=== PATIENT | male | born 1955 | race Caucasian/White ===

== ENCOUNTER → 2016-08-19 | Outpatient (REF) | payer MEDICARE, BC ==
[~2016-08-19] MED LIST: /ALEN70TA; ACET65TA OR; AKWA TEARS OS; ASPI81TA83 OR; ASPI81TA85 PO; CALC0.5C OR; CALC0.5C PO; CINA30TA PO; CORE25TA; CORE25TA OR; CORE25TA PO; COZA25TA8 OR; DAILYVITE; DULC5TAB PO; K PHOS PO; KPHOS50TA PO; MAGN400C2 PO; MAGN400T5 PO; MAGN500T2 OR; MAGN500T5 PO; METO10TA2; MYFO180T PO; MYFORTIC PO; NAPR250T; NORV5TAB OR; NORV5TAB PO; PERICOLACE; PRED20TAB PO; PRED50TA PO; PRED5TA PO; PRED5TAB OR; PREDOPD OS; PRIL20CA; PRIL20CA OR; PRIL20CA9 PO; PROG1CAP10 PO; PROG1CAP2 OR; PROL0.072 OS; REGL10TA6 PO; RENA800T; RENVELA; REST15CA; TYLE325T5 PO; TYLE500T78 PO; VICO5TAB; VIT D 2000 PO; VITA100037 PO; XANA0.25; [UNRECOGNIZED DRUG - OTHER]; [UNRECOGNIZED DRUG - OTHER]; [UNRECOGNIZED DRUG - OTHER] PO; cipro
== END ==
LOC: M LAB REF 15:52
PROVIDERS: ATTEND Internal Medicine Nephrology
DX: Z94.0 Kidney transplant status (principal)

== ENCOUNTER 2016-10-12 13:25 | Inpatient (IN) | payer MEDICARE, BC ==
[~2016-10-12] VITALS: Ht 200.7 cm; Wt 76.4 kg
[2016-10-12] MEDS: ASPIRIN 81 MG ENTERIC TAB PO SCH (09:00)
[~2016-10-12 13:25] MED LIST changes: -CALC0.5C PO; +CALC0.5C6 PO
[2016-10-12] MEDS ORDERED: NS 1,000 ML IV ONE ×2 (14:15→16:00)
[2016-10-12] MEDS ORDERED: ONDANSETRON 4MG/2ML VIAL (J2405) IV ONE (14:15)
[2016-10-12] MEDS ORDERED: ACETAMINOPHEN TAB 650MG DOSE (2X325MG) PO ONE (17:00)
[2016-10-12] MEDS ORDERED: ONDANSETRON 4MG/2ML VIAL (J2405) IV PRN (17:15)
[2016-10-12] MEDS ORDERED: ACETAMINOPHEN TAB 650MG DOSE (2X325MG) PO PRN (17:15)
[2016-10-12] MEDS ORDERED: GASTROGRAFIN SOLUTION 30ML (Q9963) As Ordered ONE (17:35)
[2016-10-12] MEDS ORDERED: GASTROGRAFIN SOLUTION 30ML (Q9963) PO ONE (17:45)
[2016-10-12] MEDS ORDERED: CALC1CAP31 PO (17:56)
[2016-10-12] MEDS ORDERED: GASTROGRAFIN SOLUTION 30ML PO ONE (18:15)
[2016-10-12] MEDS: NS 1,000 ML IV SCH (18:29)
--- NOTE | 2016-10-12 19:34 | HPEPDOC ---
General Date of Admission Oct 12, 2016 at 17:11 Primary Care Physician: Janice Giles MD Chief Complaint The patient is a 60-year-old male admitted with a reason for visit of Diarrhea. Source: Patient, Family History of Present Illness Mr. 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 He is accompanied in the room by his . They both provide the history. They're both excellent historians. He states that approximately 2 days ago he began feeling ill in the evening after eating dinner, he had one bout of diarrhea at that time, but no other symptoms. Yesterday he was not feeling himself, and he had decreased appetite and decreased oral intake, but no additional symptoms at that time. This morning at about 7 AM he began to have profuse watery diarrhea, and then he also had nausea and a few bouts of emesis. He called his primary care provider Dr. Giles who instructed him that he should present to the emergency department as he may become dehydrated quite quickly, especially in the setting of his transplanted kidney. Home Medications Scheduled (Myfortic) 180 Mg Tab 180 MG PO BID (Reported) Amlodipine Besylate (Norvasc) 5 Mg Tab 5 MG PO QHS (Reported) Aspirin (Aspir-81) 81 Mg Tab 81 MG PO DAILY (Reported) Calcitriol (Calcitriol) 0.25 Mcg Cap 0.5 MCG PO DAILY (Reported) Carvedilol (Coreg) 25 Mg Tab 25 MG PO BID (Reported) Cinacalcet Hydrochloride (Sensipar) 30 Mg Tab 30 MG PO 2XWK (Reported) FRIDAY & FRIDAY QHS Magnesium Oxide (Magnesium Oxide 400) 400 Mg Tab 800 MG PO BID (Reported) Omeprazole (Prilosec) 20 Mg Cap 20 MG PO DAILY (Reported) Potassium Phosphate Monobasic (K-Phos) 500 Mg Tab 500 MG PO BID (Reported) Prednisone (Prednisone) 5 Mg Tab 5 MG PO DAILY (Reported) Tacrolimus (Prograf) 0.5 Mg Cap 0.5 MG PO BID (Reported) Vitamin D (Vitamin D) 1,000 Unit Cap 1,000 UNIT PO DAILY (Reported) Scheduled PRN Acetaminophen (Tylenol Extra Strength) 500 Mg Tab 1,000 MG PO Q6H PRN PRN PAIN ( Reported) Metoclopramide HCl (Reglan) 10 Mg Tab 10 MG PO PRN PRN PRN NAUSEA (Reported) Allergies Coded Allergies: Hydrocodone (Verified Allergy, Unknown, 10/07/12) Morphine (Unverified Allergy, Unknown, VOMIT, 06/02/16) Vancomycin (Verified Allergy, Unknown, 10/07/12) Codeine (Verified Adverse Reaction, Mild, NAUSEA/VOMITING, 10/07/12) Meperidine (Verified Adverse Reaction, Mild, NAUSEA/VOMITING, 10/07/12) Oxycodone (Verified Adverse Reaction, Mild, NAUSEA/VOMITING, 10/07/12) Past Medical History Medical History End-stage renal disease due to congenital urinary tract abnormalities status post 2 prior kidney transplantations in the remote past Hypertension Anxiety GERD 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 Surgical History Renal transplant 2 Cholecystectomy Cataract surgery Left hip replacement Left shoulder replacement Right arm AV fistula creation for hemodialysis Surgical intervention of cyst on the liver Lungs surgery for drainage of hemothorax Family History He is adopted therefore he does not know his family history. He has 2 daughters who are healthy Social History * Smoker: non-smoker Alcohol: Denies Drugs: denies Recent Travel/Sick Contacts: Reports: Recent sick contacts (various members of his extended family have had GI issues over the past several weeks, he feels has been doing a good job of avoiding them when [place]), Denies: Recent travel He lives at home with his , they do not have any pets. 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 No asbestos exposure. No tuberculosis exposure. Review of Symptoms Constitutional: Reports: Chills, Fatigue, Fever, Malaise, Night Sweats, Weakness Skin: Denies: Breakdown, Lesions, Rash Pulmonary: Denies: Cough, Dyspnea Cardiovascular: Denies: Chest Pain, Lt Headedness, Orthopnea, Palpitations, Paroxysmal Noc. Dyspnea Gastrointestinal: Reports: Abdominal Pain, Constipation (normally he suffers from chronic constipation), Diarrhea, Nausea, Vomiting Genitourinary: Denies: Dysuria, Frequency, Incontinence, Retention Hematologic: Denies: Bleeding Excessively, Bruising Musculoskeletal: Denies: Back Pain, Joint Pain, Muscle Pain, Neck Pain, Spasms Neurological: Denies: Change in speech, Confusion, Numbness, Weakness Psych: Reports: Mood Normal, Denies: Depression, Memory Issues Physical Examination General Exam: Positive: Alert, No Acute Distress Eye Exam: Positive: Conjunctiva & lids normal, EOMI, PERRLA, Negative: Sclera icteric ENT Exam: Positive: Atraumatic, Mucous membr. moist/pink, Pharynx Normal Neck Exam: Positive: Supple, Negative: JVD, thyromegaly Chest Exam: Positive: Clear to auscultation, Normal air movement Heart Exam: Positive: Normal S1, Normal S2, Rate Normal, Regular Rhythm, Negative: Murmurs, Rubs Abdomen Exam: Positive: BS Hypoactive, Soft, Tenderness (generalized mild tenderness, transplant kidney is noted in the left lower quadrant, which is now more tender than it usually is), Negative: Hepatospenomegaly Extremity Exam: Positive: Normal pulses, Negative: Clubbing, Cyanosis, Edema Skin Exam: Positive: Nl turgor and temperature, Negative: Breakdown, Lesion Neuro Exam: Positive: Cranial Nerves 3-12 NL, Normal Speech Psych Exam: Positive: Mental status NL, Mood NL, Oriented x 3 Vital Signs Vital Signs Date Time Temp Pulse Resp B/P Pulse Ox O2 Delivery O2 Flow Rate FiO2 10/12/16 17:51 101.6 10/12/16 17:30 79 20 128/77 95 10/12/16 13:26 Room Air Laboratory Data Labs 24H Laboratory Tests 2 10/12/16 14:44: Aspartate Amino Transf (AST/SGOT) 15, Alanine Aminotransferase (ALT/SGPT) 16, Alkaline Phosphatase 65, Total Bilirubin 0.9, Direct Bilirubin 0.1, Albumin 3.9 , Albumin/Globulin Ratio 1.18, Anion Gap 8, Atypical Lymphocytes 3, Band Neutrophils 18H, White Blood Count 9.4, Red Blood Count 5.23, Hemoglobin 15.2, Hematocrit 45.8, Mean Corpuscular Volume 87.6, Mean Corpuscular Hemoglobin 29.1 , Mean Corpuscular Hemoglobin Concent 33.2, Red Cell Distribution Width 14.4, Platelet Count 130L, Neutrophils (%) (Auto) , Lymphocytes (%) (Auto) , Monocytes (%) (Auto) , Eosinophils (%) (Auto) , Basophils (%) (Auto) , Neutrophils # (Auto) , Lymphocytes # (Auto) , Monocytes # (Auto) , Eosinophils # (Auto) , Basophils # (Auto) , Calcium Level 9.3, Glomerular Filtration Rate 29.9L, Large Unclassified Cells # , Large Unclassified Cells % , Lipase 84, Lymphocytes (Manual) 4L, Monocytes (Manual) 6, Neutrophils 69, Platelet Estimate DECREASED, Red Blood Cell Morphology NORMAL, Total Protein 7.2 10/12/16 17:11: CBC/BMP Laboratory Tests 10/12/16 14:44 Red Blood Count 5.23, Mean Corpuscular Volume 87.6, Mean Corpuscular Hemoglobin 29.1, Mean Corpuscular Hemoglobin Concent 33.2, Red Cell Distribution Width 14.4 , Neutrophils (%) (Auto) , Lymphocytes (%) (Auto) , Monocytes (%) (Auto) , Eosinophils (%) (Auto) , Basophils (%) (Auto) , Neutrophils # (Auto) , Lymphocytes # (Auto) , Monocytes # (Auto) , Eosinophils # (Auto) , Basophils # ( Auto) Microbiology Microbiology 10/12/16 Blood Culture, Received Pending 10/12/16 Blood Culture, Received Pending 10/12/16 Gastrointestinal Tract Panel (PCR), Ordered Pending 10/12/16 Gastrointestinal Tract Panel (PCR), Received Pending 10/12/16 Urine Culture, Received Pending Problems (1) Acute renal failure (ARF) Status: Acute (2) Abdominal pain Status: Acute (3) Secondary hyperparathyroidism Status: Chronic (4) GERD (gastroesophageal reflux disease) Status: Chronic (5) HTN (hypertension) Status: Chronic (6) Anemia Status: Chronic (7) Diarrhea Status: Acute (8) Bandemia Status: Acute (9) Dehydration, moderate Status: Acute (10) Nausea, vomiting and diarrhea Status: Acute (11) Norovirus Status: Acute (12) Status post kidney transplant Status: Chronic Plan / VTE VTE Prophylaxis Ordered?: Yes (Lovenox) Plan Plan In light of the fact that the patient has had one failed kidney transplant in the past, and he has acute kidney injury with his one remaining transplanted kidney, and he is on immunosuppressive agents, we felt that it would be better to cast a wide net of diagnostic tests and to rule out insidious causes of his symptoms. We'll check a CMP, CRP, CBC, ESR, lactic acid, lipase, liver profile, magnesium , TSH, UA, urine cultures, blood cultures, GI panel, respiratory panel, as well as we will get a PA and lateral of his chest and a CT of the abdomen and pelvis with by mouth contrast only as he is in acute kidney injury and we do not wish to further damage his kidney with IV contrast. His GI panel has returned for Norovirus at this time, therefore our plan is supportive care. If any other red flags are detected in his further workup, we will adjust his treatment as necessary, and have a low threshold for treatment because of his past medical history and concurrent comorbidities. Otherwise, we 'll continue his usual home medications of Norvasc, aspirin, calcitriol, carvedilol, Sensipar, Protonix, prednisone, myfortic, and tacrolimus for his chronic medical conditionspaDORITA Vora DO Oct 12, 2016 19:21
--- NOTE | 2016-10-12 20:00 | REPUSA ---
CT of the abdomen and pelvis without contrast Clinical statement: diarrhea. Technique: Multiple axial CT images were obtained from the base of the lungs to the floor of the pelv is utilizing 5 mm axial slices after administration of oral contrast only. Coronal and sagittal recon structions were also obtained. No comparison is available. Findings: Chest: There is linear atelectasis in the left lower lobe. Abdomen: The kidneys are atrophied bilaterally, with chronic calcifications appreciated. There is no evidence of hydronephrosis. The liver, spleen, pancreas, and adrenal glands are unremarkable. The aor ta demonstrates normal caliber and contour. There is no abdominal lymphadenopathy or ascites. Pelvis: There is a transplant kidney in the left lower quadrant. There is no evidence of hydronephros is or nephrolithiasis. A large simple cyst is noted measuring 5.4 x 5.1 cm. The bowel is unremarkable , with no obstructive or inflammatory changes. The urinary bladder is within normal limits. There is no pelvic lymphadenopathy or ascites. The other pelvic structures appear unremarkable. Bones: There are no suspicious osseous abnormalities seen. Left hip arthroplasty is intact. Impression: 1. No obstructive or inflammatory bowel changes to explain the patient's diarrhea. 2. Chronic atrophy of the [place] kidneys with chronic calcifications noted. Transplant kidney in the left lower quadrant is unremarkable, other than a large simple left renal cyst. 3. Linear left lower lobe atelectasis.
[2016-10-12 20:30] VITALS: BP 134/80
[2016-10-12] MEDS: CARVedilol 12.5 MG TAB PO SCH (21:10)
[2016-10-12] MEDS: amLODIPine 5 MG TAB PO SCH (21:11)
[2016-10-12] MEDS: TACROLIMUS 0.5 MG CAP PO SCH (21:45)
[2016-10-13] MEDS: NS 1,000 ML IV SCH ×3 (02:12→21:36)
[2016-10-13 06:00] VITALS: BP 145/78
[2016-10-13] MEDS: MAG SULF 1GM/100ML (MAG RUN) 1 GM in APPROPRIATE DILUENT 1 EA IV SCH ×2 (07:33→10:57)
--- NOTE | 2016-10-13 08:01 | REP ---
CHEST, PA AND LATERAL: 10/12/2016. Comparison 06/02/2016, 04/10/2016. Clinical history: Fever. Findings: Two-view show the lung cadena adequately inflated. There is some chronic basilar fibrotic change. I see cardiomegaly with left atrial and ventricular enlargement. No vascular redistribution or laney edema. Some lateral pleural thickening noted bilaterally. No effusion or pneumothorax. There is no dense consolidation. The aorta is tortuous with some calcification but without change. There is a left total shoulder arthroplasty. Airway midline. No abnormal widening of the mediastinum. Bones demineralized. No compression deformity. There are right upper quadrant clips from prior cholecystectomy. Impression: 1. Basilar fibrotic changes without definite acute infiltrate, effusion or edema.2. Cardiomegaly with left atrial and ventricular enlargement. A tortuous calcified ectatic aorta again seen and stable. 3. Prior left total shoulder arthroplasty. Signed by Boone Bonilla MD 10/13/2016 08:36 A
[2016-10-13] MEDS: CARVedilol 12.5 MG TAB PO SCH ×2 (09:00→21:35)
[2016-10-13] MEDS ORDERED: PANTOPRAZOLE 40MG TAB (PROTONIX) PO SCH (09:00)
[2016-10-13] MEDS: ENOXAPARIN 30 MG/0.3 ML SYR (J1650) SC SCH (09:00)
[2016-10-13] MEDS: ASPIRIN 81 MG ENTERIC TAB PO SCH (09:05)
[2016-10-13] MEDS: CALCITRIOL 0.25 MCG CAP (S0169) PO SCH (09:06)
[2016-10-13] MEDS: TACROLIMUS 0.5 MG CAP PO SCH ×2 (09:06→21:32)
[2016-10-13] MEDS: predniSONE 5 MG TAB PO SCH (09:06)
[2016-10-13] MEDS: PANTOPRAZOLE 40MG INJ (PROTONIX) (C9113) IV SCH (09:07)
[2016-10-13] MEDS: amLODIPine 5 MG TAB PO SCH (09:08)
--- NOTE | 2016-10-13 11:15 | IPNPDOC ---
Date Seen The patient was seen on 10/13/16. Progress Note SUBJECTIVE: Patient continues to complain of diarrhea, but he tells me that he also feels bloated from his liquid diet he denies chest pain and dry heaves. The patient does continue to complain of fevers otherwise no specific complaints OBJECTIVE PHYSICAL EXAMINATION: VITAL SIGNS: Please see below. GENERAL: Obese elderly man laying in bed at 30 angle he is a copy by his the patient does not appear to be in any acute distress HEENT: Pupils equally round reactive to light CARDIOVASCULAR: S1-S2. RESPIRATORY: Clear to auscultation. ABDOMINAL: Obese bowel sounds present abdomen soft and nontender EXTREMITIES: No clubbing cyanosis or appreciable edema LABORATORY DATA: Please see below. MICROBIOLOGY: Please see below. IMAGING: CT Abd Pelvis: 1. No obstructive or inflammatory bowel changes to explain the patient's diarrhea. 2. Chronic atrophy of the [place] kidneys with chronic calcifications noted. Transplant kidney in the left lower quadrant is unremarkable, other than a large simple left renal cyst. 3. Linear left lower lobe atelectasis. CXR: 1. Basilar fibrotic changes without definite acute infiltrate, effusion or edema.2. Cardiomegaly with left atrial and ventricular enlargement. A tortuous calcified ectatic aorta again seen and stable. 3. Prior left total shoulder arthroplasty. DVT prophylaxis ordered?: Lovenox ASSESSMENT AND PLAN: This is a 60-year-old man with diarrhea secondary to norovirus. PROBLEMS: 1. norovirus: Patient presented with several hours of diarrhea yesterday sick contact exposure with his and his grandchildren had similar GI illnesses recently given his immunocompromise state and his kidney disease is likely affected more greatly his other family members is currently on IV fluids his renal function is improving supportive care. Tylenol for fevers, follow-up remaining cultures and blood work ordered. 2. Chronic renal disease: Status post transplant 2 patient is continued on cinacalcet prednisone calcitriol Prograf Myfortic and normal saline we'll continue to monitor his renal function closely. 3. Hypertension: Patient is continued on Coreg and Norvasc with holding parameters. 4. Gastroesophageal reflux disease: The patient is continued on a PPI 5. Anemia: Secondary to chronic renal disease 6 hypomagnesemia: Repleted 7 elevated lactic acid: Resolved, secondary to dehydration continue with IV fluids DISPOSITION: Continue to monitor closely. VS, I&O, 24H, Fishbone Vital Signs/I&O Vital Signs Date Time Temp Pulse Resp B/P Pulse Ox O2 Delivery O2 Flow Rate FiO2 10/13/16 09:08 68 127/78 10/13/16 06:00 101.5 18 95 Room Air I&O- Last 24 Hours up to 6 AM 10/13/16 06:00 Intake Total 2920 ml Output Total 450 ml Balance 2470 ml Laboratory Data 24H LABS Laboratory Tests 2 10/12/16 14:44: Aspartate Amino Transf (AST/SGOT) 15, Alanine Aminotransferase (ALT/SGPT) 16, Alkaline Phosphatase 65, Total Bilirubin 0.9, Direct Bilirubin 0.1, Albumin 3.9 , Albumin/Globulin Ratio 1.18, Anion Gap 8, Atypical Lymphocytes 3, Band Neutrophils 18H, White Blood Count 9.4, Red Blood Count 5.23, Hemoglobin 15.2, Hematocrit 45.8, Mean Corpuscular Volume 87.6, Mean Corpuscular Hemoglobin 29.1 , Mean Corpuscular Hemoglobin Concent 33.2, Red Cell Distribution Width 14.4, Platelet Count 130L, Neutrophils (%) (Auto) , Lymphocytes (%) (Auto) , Monocytes (%) (Auto) , Eosinophils (%) (Auto) , Basophils (%) (Auto) , Neutrophils # (Auto) , Lymphocytes # (Auto) , Monocytes # (Auto) , Eosinophils # (Auto) , Basophils # (Auto) , C-Reactive Protein, Quantitative 4.66H, Calcium Level 9.3, Erythrocyte Sedimentation Rate 3, Glomerular Filtration Rate 29.9L, Large Unclassified Cells # , Large Unclassified Cells % , Lipase 84, Lymphocytes (Manual) 4L, Monocytes (Manual) 6, Neutrophils 69, Platelet Estimate DECREASED, Red Blood Cell Morphology NORMAL, Total Protein 7.2 10/12/16 17:11: Urine Amorphous Sediment , Urine Appearance CLEAR, Urine Color YELLOW, Urine pH 5.0, Urine Specific [place] 1.017, Urine Protein NEGATIVE, Urine Glucose (UA) NEGATIVE, Urine Ketones NEGATIVE, Urine Urobilinogen 0.2, Urine Bilirubin NEGATIVE, Urine Leukocyte Esterase NEGATIVE, Urine Bacteria (Auto) 1+H, Urine Blood NEGATIVE, Urine Calcium Carbonate Cryst(Auto) , Urine Calcium Oxalate Cryst (Auto) , Urine Calcium Phosphate [place] (Auto) , Urine Cellular Casts , Urine Cystine Crystals , Urine Granular Casts (Auto) , Urine Hyaline Casts (Auto ) 4, Urine Leucine Crystals , Urine Mucus (Auto) SMALL, Urine Nitrite NEGATIVE, Urine Oval Fat Bodies (Auto) , Urine RBC (Auto) 5H, Urine Renal Epithelial Cells , Urine Sperm (Auto) , Urine Squamous Epithelial Cells 0, Urine Transitional Epithelial Cells , Urine Trichomonas (Auto) , Urine Triple Phosphate Cryst (Auto) , Urine Tyrosine Crystals , Urine Uric Acid Crystals ( Auto) , Urine WBC (Auto) 1, Urine Waxy Casts (Auto) , Urine Yeast-Like Cells ( Auto) 10/12/16 19:16: Lactic Acid Level 2.3*H 10/12/16 23:49: Lactic Acid Followup at 4 Hours 1.7 10/13/16 05:45: Anion Gap 7L, White Blood Count 6.9, Red Blood Count 4.37, Hemoglobin 12.4#L, Hematocrit 38.7L, Mean Corpuscular Volume 88.6, Mean Corpuscular Hemoglobin 28.4 , Mean Corpuscular Hemoglobin Concent 32.1, Red Cell Distribution Width 14.6H, Platelet Count 103L, Neutrophils (%) (Auto) 82.1H, Lymphocytes (%) (Auto) 9.1L, Monocytes (%) (Auto) 6.0H, Eosinophils (%) (Auto) 1.0, Basophils (%) (Auto) 0.1 , Neutrophils # (Auto) 5.7, Lymphocytes # (Auto) 0.8L, Monocytes # (Auto) 0.4, Eosinophils # (Auto) 0.1, Basophils # (Auto) 0.0, Blood Urea Nitrogen 26H, Creatinine 1.96H, Sodium Level 141, Potassium Level 3.8, Chloride Level 114H, Carbon Dioxide Level 20L, Calcium Level 8.1L, Glomerular Filtration Rate 37.2L, Large Unclassified Cells # 0.1, Large Unclassified Cells % 1.8, Magnesium Level 1.1L, Thyroid Stimulating Hormone (TSH) 1.860 CBC/BMP Laboratory Tests 10/12/16 14:44 Red Blood Count 5.23, Mean Corpuscular Volume 87.6, Mean Corpuscular Hemoglobin 29.1, Mean Corpuscular Hemoglobin Concent 33.2, Red Cell Distribution Width 14.4 , Neutrophils (%) (Auto) , Lymphocytes (%) (Auto) , Monocytes (%) (Auto) , Eosinophils (%) (Auto) , Basophils (%) (Auto) , Neutrophils # (Auto) , Lymphocytes # (Auto) , Monocytes # (Auto) , Eosinophils # (Auto) , Basophils # ( Auto) 10/13/16 05:45 Red Blood Count 4.37, Mean Corpuscular Volume 88.6, Mean Corpuscular Hemoglobin 28.4, Mean Corpuscular Hemoglobin Concent 32.1, Red Cell Distribution Width 14.6 H, Neutrophils (%) (Auto) 82.1 H, Lymphocytes (%) (Auto) 9.1 L, Monocytes ( %) (Auto) 6.0 H, Eosinophils (%) (Auto) 1.0, Basophils (%) (Auto) 0.1, Neutrophils # (Auto) 5.7, Lymphocytes # (Auto) 0.8 L, Monocytes # (Auto) 0.4, Eosinophils # (Auto) 0.1, Basophils # (Auto) 0.0, Calcium Level 8.1 L Microbiology Microbiology 10/12/16 Blood Culture, Received Pending 10/12/16 Blood Culture, Received Pending 10/12/16 Gastrointestinal Tract Panel (PCR) - Final, Complete Norovirus 10/12/16 Urine Culture, Received Pending HAIDER LEWIS MD Oct 13, 2016 11:15
--- NOTE | 2016-10-13 11:21 | CR ---
DATE OF CONSULTATION: 10/12/2016 REQUESTING PROVIDER: Tayler Bal MD REASON FOR CONSULTATION: Acute kidney injury superimposed on chronic kidney disease in this gentleman with kidney transplant, diarrhea and vomiting. HISTORY OF PRESENT ILLNESS: Mr. Leonard is a 60-year-old gentleman with known history of end-stage renal disease, status post second kidney transplant. 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 He was on dialysis in between his kidney transplants. His most recent kidney transplant has been functioning reasonably well and baseline serum creatinine is between 1.5 and 2.0 mg/dl. The patient developed vomiting and diarrhea for last 3 days, due to which he came to the emergency room per my advice. He was found to be dehydrated and hypotensive with worsening kidney function. He is admitted and he is being hydrated with IV fluid. PAST MEDICAL AND SURGICAL HISTORY Significant for: 1. 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 2. Hypertension. 3. History of gastroesophageal reflux disease. 4. History of secondary hyperparathyroidism. 5. History of sarcoidosis. 6. History of AV fistula creation. 7. Is history of anxiety. PAST SURGICAL HISTORY: Significant for: 1. Renal transplant times two. 2. History of transplant nephrectomy. 3. Cholecystectomy. 4. Cataract surgery. 5. Left hip replacement. 6. Left shoulder replacement. 7. Right arm AV fistula creation. 8. History of thoracentesis due to hemothorax. MEDICATIONS: His home medications include: - Myfortic 180 mg twice a day - amlodipine 5 mg daily - aspirin 81 mg daily - calcitriol 0.25 mcg daily - Coreg 25 mg twice a day - Sensipar 30 mg twice a week - magnesium oxide 400 mg two tablets twice a day - omeprazole 20 mg daily - K phos 500 mg twice a day - prednisone 5 mg daily - tacrolimus 0.5 mg twice a day - vitamin D 1000 units daily ALLERGIES: The patient has multiple allergies or intolerance including HYDROCODONE, MORPHINE, VANCOMYCIN, CODEINE, OXYCODONE. PERSONAL AND SOCIAL HISTORY: The patient is and lives with his . He does not smoke or drink. There is no history of drug use. FAMILY HISTORY: Negative for kidney disease. There is no family history of end-stage renal disease. REVIEW OF SYSTEMS: The patient did have fever in the emergency room up to 101 degrees Fahrenheit. Ears, nose and throat are unremarkable. Cardiovascular system is negative for dyspnea or chest pain. Respiratory system negative for cough or hemoptysis. Gastrointestinal system is significant for multiple episodes of vomiting and diarrhea of watery stools at home. There is no history of blood in the vomitus or in the stools. There is no history of black colored stools. Genitourinary system is significant for decreased urine output. Endocrine system is significant for secondary hyperparathyroidism. There is no history of diabetes. Musculoskeletal system is negative for any leg edema or arthritis. Hematological system is negative for anticoagulation. There is no history of anemia or thrombocytopenia. Neurological system is negative for seizures or stroke. 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 Skin is negative for rash or ulcers. Other systems reviewed and are unremarkable. PHYSICAL EXAMINATION: The patient is awake and alert at the time of my visit. Temperature is 99.2 degrees Fahrenheit, heart rate 64 per minute and respiratory rate 18 per minute. Blood pressure 134/80 mmHg and oxygen saturation 92% on room air. Head is atraumatic. Ears, nose and throat are unremarkable. Neck is supple and without any jugular venous distention (JVD) or thyroid enlargement. Trachea is midline. Heart exam reveals regular S1, S2. There is no gallop or murmur. Lungs are clear to auscultation bilaterally. Abdomen is soft and nontender. There is no palpable organomegaly. Transplant kidney is nontender. Extremities have no cyanosis or clubbing. Neurologically, he is awake, alert and oriented times three. There is no focal neurological deficit. LABORATORY DATA: On admission, WBC count is 9.4, hemoglobin 15.2 and hematocrit 45.8. Platelets 130. Sodium 139 and potassium 4.1. BUN 34 and creatinine 2.37. A lactic acid level is 2.3. Rest of his chemistry is unremarkable. His C-reactive protein is 4.66. PROBLEMS: 1. Acute kidney injury superimposed on chronic kidney disease, most likely due to dehydration caused by vomiting and diarrhea. At present, the patient is being hydrated with IV fluid. I would recommend to continue with the same. He has not vomited for the last few hours since in the in the emergency room. Full liquid diet has already been ordered. 2. Kidney transplant status. The patient has second kidney transplant, which has been functioning reasonably well with stable function at baseline. I suggest to continue with chronic immunosuppressive therapy with same dose. There is no need for a stress dose of steroids. 3. Hypertension. His blood pressure is reasonably well-controlled. His chronic antihypertensive medications should be continued. 4. Secondary hyperparathyroidism. This has also been well controlled with calcitriol and Sensipar, which should be continued at the home dose. 5. Electrolyte abnormalities. The patient does have history of low magnesium and phosphorus related to his transplant kidney. I suggest to continue with chronic supplements. I thank you for involving me in the care of Mr. Leonard. I will follow him along with you.
[2016-10-13] MEDS ORDERED: K-PHOS ORIGINAL (POT.ACID PHOSPHATE) 500MG TAB PO ONE (13:30)
--- NOTE | 2016-10-13 16:23 | IPN ---
DATE: 10/13/2016 SUBJECTIVE: Mr. Leonard is seen this morning on his bedside. He is feeling better this morning. However, he did have 4-5 loose stools through the night. His last loose stool was at 7 a.m. He denies any vomiting. He still feels bloated but nausea has improved. There is no fever or chills at present; however, his temperature was 101.5 at 6 a.m. PHYSICAL EXAMINATION: GENERAL: The patient is awake and alert and without any acute distress. VITAL SIGNS: Heart rate is 68 per minute and respiratory rate 18 per minute. Blood pressure 127/78 mmHg and oxygen saturation 95% on room air. HEENT: Head is atraumatic. Ears, nose and throat are unremarkable. Pupils equal and reactive to light and sclerae are anicteric. NECK: Neck is supple and without jugular venous distention (JVD) or thyroid enlargement. HEART: Sounds are regular. LUNGS: Clear to auscultation. ABDOMEN: Slightly bloated but nontender. Bowel sounds are normal. EXTREMITIES: Have no cyanosis or clubbing. SKIN: Has no rash or ulcers. NEUROLOGIC: He has no focal deficit. LABORATORY DATA: Today's labs show WBC count 6.9, hemoglobin 12.4 and hematocrit 38.7. Sodium 141 and potassium 3.8. BUN 26 and creatinine 1.96. A lactic acid level is down to 1.7 and calcium 8.1. Magnesium level 1.1. PROBLEMS: 1. Acute renal failure superimposed on chronic kidney disease. Most likely this was result of dehydration caused by vomiting and diarrhea. His kidney function has already improved since yesterday. He still had loose stools through the night and this morning. I will continue with intravenous (IV) fluid for at least next 24 hours. 2. Metabolic acidosis. He has developed mild metabolic acidosis most likely related to diarrhea and acute renal failure. At this point, sodium bicarbonate is not indicated. We will anticipate improvement over next 24 hours. We will continue with IV normal saline. 3. Hypomagnesemia. Magnesium level is significantly low, most likely related to ongoing diarrhea and vomiting. He has history of chronic low magnesium related to kidney transplant. The patient has received two doses of intravenous magnesium sulfate 1 gram each. Magnesium level will be repeated again this afternoon. 4. Hypophosphatemia. 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 His phosphorus level is being checked and K-Phos 1000 mg will be resumed as he was taking at home. The patient can probably also benefit from Pepsi or Coke which will help with his phosphorus level. 5. Diarrhea and vomiting. His gastrointestinal (GI) symptoms are better now. However, he did have several loose stools through the night. His GI panel did show norovirus. We will continue to hydrate him until he feels well and his GI symptoms completely resolved. 6. Kidney transplant status. The patient will remain on his chronic immunosuppressive therapy including Myfortic, tacrolimus and prednisone which should be continued. 7. Hypertension. Blood pressure has been on the low side due to dehydration. His antihypertensives were held. 8. Hyperparathyroidism. This has been well controlled with Sensipar and calcitriol which should be continued at the current dose.
[2016-10-13] MEDS: K-PHOS ORIGINAL (POT.ACID PHOSPHATE) 500MG TAB PO SCH (21:32)
[2016-10-13 22:00] VITALS: BP 150/85
[2016-10-14] VITALS: BP 120/75
[2016-10-14 06:00] VITALS: BP 135/80
[2016-10-14] MEDS: TACROLIMUS 0.5 MG CAP PO SCH (08:20)
[2016-10-14] MEDS: PANTOPRAZOLE 40MG INJ (PROTONIX) (C9113) IV SCH (08:21)
[2016-10-14] MEDS: ENOXAPARIN 30 MG/0.3 ML SYR (J1650) SC SCH (08:21)
[2016-10-14] MEDS: ASPIRIN 81 MG ENTERIC TAB PO SCH (08:21)
[2016-10-14] MEDS: K-PHOS ORIGINAL (POT.ACID PHOSPHATE) 500MG TAB PO SCH (08:22)
[2016-10-14] MEDS: CALCITRIOL 0.25 MCG CAP (S0169) PO SCH (08:22)
[2016-10-14 08:23] VITALS: BP 130/84
[2016-10-14] MEDS: CARVedilol 12.5 MG TAB PO SCH (08:23)
[2016-10-14] MEDS: predniSONE 5 MG TAB PO SCH (08:23)
[2016-10-14] MEDS: NS 1,000 ML IV SCH (08:24)
[2016-10-14] MEDS ORDERED: MAGNESIUM OXIDE 400 MG TAB (MAG-OX) PO SCH (09:00)
[2016-10-14] MEDS ORDERED: POTASSIUM PHOSPHATE INJ 20 MMOL in D5W 250 ML IV ONE (10:00)
[2016-10-14] MEDS ORDERED: MAG SULF 1GM/100ML (MAG RUN) 1 GM in APPROPRIATE DILUENT 1 EA IV ONE (11:00)
[2016-10-14] MEDS ORDERED: CALCIUM GLUCONATE 1,000 MG in D5W MINI-BAG PLUS 100 ML IV ONE (12:00)
--- NOTE | 2016-10-14 15:36 | DS.PDOC ---
Discharge Summary General Date of Admission Oct 12, 2016 at 17:11 Date of Discharge 10/14/2016 Discharge Summary PRIMARY CARE PHYSICIAN: Dr. Giles ATTENDING AT TIME OF DISCHARGE: Dr. Norman DISCHARGE DIAGNOS(E)S: 1. Gastroenteritis secondary to norovirus 2. Chronic renal disease status renal post transplant 2 3. Hypertension 4. GERD 5. Anemia of chronic disease 6. Electrolyte abnormalities HPI & HOSPITAL COURSE: Mr. Leonard is a 60-year-old male who presented to the ED with a 2 day history of severe watery diarrhea, he also had nausea and vomiting as well. He called his primary care provider his ingredient scaler Dr. Giles who recommended he come to the ED as he is prone to being dehydrated quite quickly given that he only has one kidney which is transplanted. A GI panel was performed which revealed the etiology of his diarrhea as being norovirus. Supportive care was the mainstay of his treatment, he did have multiple electrolyte abnormalities such as hypokalemia, hypomagnesemia, hypophosphatemia, nephrology was consulted, these were repleted. Otherwise, on today the day of discharge she is feeling significantly better, he has not had diarrhea for 24 hours, he has been afebrile , his lactic acidosis resolved, and his creatinine and GFR has returned to baseline. He appears stable for discharge at this time. PHYSICAL EXAMINATION ON DISCHARGE: GENERAL: He was found upstanding brushing his teeth when I entered the room. He is awake, alert, oriented 3. He is in no apparent distress. CARDIOVASCULAR EXAMINATION: Regular rate and rhythm, with no rubs, gallops, or murmur. RESPIRATORY EXAMINATION: Clear to auscultation bilaterally with no wheezes, rales, or rhonchi. ABDOMINAL EXAMINATION: Soft, nontender, nondistended. Bowel sounds present. EXTREMITIES: No clubbing or edema noted. 2+ pulses in the radial bilaterally. DISPOSITION: Home DISCHARGE INSTRUCTIONS: Follow-up with his primary care provider Dr. Giles within 7-10 days. Diet as tolerated, activity as tolerated. If symptoms return, or if you experience worsening of your symptoms, please call your doctor or return to the emergency department. My preceptor for this patient encounter was physically present in the building during the encounter and was fully available. As needed, all aspects of the patient interview, examination, medical decision making process, and medical care plan development were reviewed and approved by the preceptor. Preceptor is aware and concurs with the plan as stated in the body of this note and will attest to such by his/her cosignature. Vital Signs/I&Os Vital Signs Date Time Temp Pulse Resp B/P Pulse Ox O2 Delivery O2 Flow Rate FiO2 10/14/16 08:23 69 130/84 10/14/16 06:00 98.2 15 94 Room Air I&O- Last 24 Hours up to 6 AM 10/14/16 05:59 Intake Total 2860 ml Output Total 600 ml Balance 2260 ml Laboratory Data Labs 24H Laboratory Tests 2 10/14/16 06:39: Albumin 3.2, Anion Gap 8, White Blood Count 4.3, Red Blood Count 4.14L, Hemoglobin 11.8L, Hematocrit 35.6L, Mean Corpuscular Volume 86.0, Mean Corpuscular Hemoglobin 28.6, Mean Corpuscular Hemoglobin Concent 33.3, Red Cell Distribution Width 14.5, Platelet Count 112L, Neutrophils (%) (Auto) 74.0H, Lymphocytes (%) (Auto) 14.5L, Monocytes (%) (Auto) 6.4H, Eosinophils (%) (Auto) 2.0, Basophils (%) (Auto) 0.2, Neutrophils # (Auto) 3.2, Lymphocytes # (Auto) 0.8L, Monocytes # (Auto) 0.3, Eosinophils # (Auto) 0.1, Basophils # (Auto) 0.0, Blood Urea Nitrogen 16, Creatinine 1.42H, Sodium Level 143, Potassium Level 3.8 , Chloride Level 114H, Carbon Dioxide Level 21, Calcium Level 7.9L, Glomerular Filtration Rate 54.0, Large Unclassified Cells # 0.1, Large Unclassified Cells % 3.0, Magnesium Level 1.5L, Phosphorus Level 1.7#L CBC/BMP Laboratory Tests 10/14/16 06:39 Calcium Level 7.9 L, Red Blood Count 4.14 L, Mean Corpuscular Volume 86.0, Mean Corpuscular Hemoglobin 28.6, Mean Corpuscular Hemoglobin Concent 33.3, Red Cell Distribution Width 14.5, Neutrophils (%) (Auto) 74.0 H, Lymphocytes (%) (Auto) 14.5 L, Monocytes (%) (Auto) 6.4 H, Eosinophils (%) (Auto) 2.0, Basophils (%) ( Auto) 0.2, Neutrophils # (Auto) 3.2, Lymphocytes # (Auto) 0.8 L, Monocytes # ( Auto) 0.3, Eosinophils # (Auto) 0.1, Basophils # (Auto) 0.0 Microbiology Microbiology 10/12/16 Blood Culture - Preliminary, Resulted No growth after 24 hours . All specim... 10/12/16 Blood Culture - Preliminary, Resulted No growth after 24 hours . All specim... 10/12/16 Gastrointestinal Tract Panel (PCR) - Final, Complete Norovirus 10/12/16 Urine Culture - Final, Complete Discharge Medications Scheduled (Myfortic) 180 Mg Tab 180 MG PO BID (Reported) Amlodipine Besylate (Norvasc) 5 Mg Tab 5 MG PO QHS (Reported) Aspirin (Aspir-81) 81 Mg Tab 81 MG PO DAILY (Reported) Calcitriol (Calcitriol) 0.25 Mcg Cap 0.5 MCG PO DAILY (Reported) Carvedilol (Coreg) 25 Mg Tab 25 MG PO BID (Reported) Cinacalcet Hydrochloride (Sensipar) 30 Mg Tab 30 MG PO 2XWK (Reported) FRIDAY & FRIDAY QHS Magnesium Oxide (Magnesium Oxide 400) 400 Mg Tab 800 MG PO BID (Reported) Omeprazole (Prilosec) 20 Mg Cap 20 MG PO DAILY (Reported) Potassium Phosphate Monobasic (K-Phos) 500 Mg Tab 500 MG PO BID (Reported) Prednisone (Prednisone) 5 Mg Tab 5 MG PO DAILY (Reported) Tacrolimus (Prograf) 0.5 Mg Cap 0.5 MG PO BID (Reported) Vitamin D (Vitamin D) 1,000 Unit Cap 1,000 UNIT PO DAILY (Reported) Scheduled PRN Acetaminophen (Tylenol Extra Strength) 500 Mg Tab 1,000 MG PO Q6H PRN PRN PAIN ( Reported) Metoclopramide HCl (Reglan) 10 Mg Tab 10 MG PO PRN PRN PRN NAUSEA (Reported) Allergies Coded Allergies: Hydrocodone (Verified Allergy, Unknown, 10/07/12) Morphine (Unverified Allergy, Unknown, VOMIT, 06/02/16) Vancomycin (Verified Allergy, Unknown, 10/07/12) Codeine (Verified Adverse Reaction, Mild, NAUSEA/VOMITING, 10/07/12) Meperidine (Verified Adverse Reaction, Mild, NAUSEA/VOMITING, 10/07/12) Oxycodone (Verified Adverse Reaction, Mild, NAUSEA/VOMITING, 10/07/12) DORITA JORGE DO Oct 14, 2016 15:35
--- NOTE | 2016-10-14 19:50 | IPN ---
DATE: 10/14/2016 SUBJECTIVE: Patient was seen and examined at the bedside today in the morning. He feels much better. His diet has significantly improved. He is hemodynamically stable. His renal function continues to improve. His creatinine is down to 1.4 now. However patient does have multiple electrolyte abnormalities at this time. REVIEW OF SYSTEMS: Patient denies any fevers, chills, rigors, headaches, nausea, vomiting, chest pain, shortness of breath, pain in the abdomen or diarrhea. He reports passing gas but he reports since yesterday he does not have loose bowel movements. The rest of the review of system is negative. OBJECTIVE: VITAL SIGNS: Temperature 98.2 degrees Fahrenheit, blood pressure 135/80, pulse 60, respiratory rate 18, saturating 94% on room air. INTAKE/OUTPUT: Urine output recorded as 600 mL yesterday. 700 mL so far today since overnight. Bed scale weight is not avaiable. PHYSICAL EXAMINATION: GENERAL: The patient is awake, alert, and oriented times three, laying in bed, no apparent distress. HEAD and NECK: Extraocular muscles intact. Pupils equal, round, and reactive to light. Mucous membranes are moist. Neck is supple. There is no jugular venous distention (JVD). CARDIOVASCULAR: S1, S2, regular rate. No murmur, rub, or gallop. CHEST: Chest clear to auscultation bilaterally. Bilateral equal air entry. No rales or rhonchi. ABDOMEN: Soft, positive bowel sounds, nontender. No ascites, no organomegaly. Old surgical scars are present. Patient has a left lower quadrant renal allograft with no tenderness or bruit. EXTREMITIES: No clubbing, cyanosis. Pulses are 2+. CENTRAL NERVOUS SYSTEM (VENIPUNCTURIST): No focal neurological deficit. Power is 5/5 in all extremities. LABORATORY DATA: CBC showed WBC 4.3, hemoglobin 11.8, platelets 112. BMP showed sodium 143, potassium 3.8, chloride 114, bicarbonate 21, BUN 16, creatinine 1.4, calcium 7.9, phosphorous 1.7, magnesium 1.5, albumin level is 3.2. MICROBIOLOGY: Blood cultures and urine cultures are negative so far. CURRENT MEDICATIONS: Patient's current medications are all reviewed by me. I have ordered a dose of calcium chloride 1 gram intravenous (IV) times 1 dose, mag-sulfate 1 gram IV times 1 dose, potassium phosphate 20 mmol times 1 dose. I have stopped the IV fluids on this patient. There is no other change in the medications today as compared with yesterday. ASSESSMENT: 60-year-old male with past medical history of kidney transplant admitted this time with acute renal failure superimposed on chronic kidney disease secondary to acute gastroenteritis. PLAN: 1. Acute kidney disease superimposed on chronic kidney disease. It was secondary to diarrhea, dehydration, and volume depletion. Patient's creatinine is significantly better. It is back to 1.4 now. Patient reports that his baseline creatinine is around 1.6 to 1.7. IV fluids have been stopped. Patient ws encouraged to take fluids orally. 2. Metabolic acidosis, significantly improved. Serum bicarbonate level is 21 now. 3. Hypomagnesemia. Magnesium level was low. I ordered another dose of mag-sulfate 1 gram IV times 1 dose and continue the oral magnesium at this time. 4. Hypopotassemia. Patient's oral K-phos dose has been increased to 1 gram. I have also ordered a dose of K-phos mmol IV times 1 dose. 5. Hypocalcemia. Calcium level was 7.9 despite a normal albumin level. Patient will get a dose of calcium gluconate 1 gram IV times 1 dose. 6. Acute norovirus induced gastroenteritis. Patient is appropriately hydrated. His diarrhea is improved. His symptoms are better now. 7. Kidney transplant status. Continue current dose of Myfortic, tacrolimus and prednisone at this time. 8. Hypertension. Continue current dose of amlodipine 5 mg by mouth daily, Coreg 25 mg by mouth twice a day. Blood pressure is acceptable at this time. DISCHARGE PLANNING: Patient's renal function has improved to his baseline. His gastroenteritis has improved. His electrolytes are being depleted. Once patient gets his IV electrolytes repleted, he can be discharged from Nephrology standpoint. He needs to followup with Nephrology within 1 week after being discharged from the hospital. Plan of care was discussed with the hospitalist team, Dr. Chris Norman.
[2016-10-14] MEDS ORDERED: CINACALCET 30 MG TAB (SENSIPAR) PO SCH (21:00)
== END 2016-10-14 16:30 | disposition home or self-care (01) | DRG 391 ==
LOC: M ED 15:17 → M ED INP 17:11 → M MS5PR 20:30
PROVIDERS: ADMIT General Practice; ATTEND Internal Medicine
DX: A08.0 Rotaviral enteritis (principal); N18.6 End stage renal disease; Z94.0 Kidney transplant status; N17.9 Acute kidney failure, unspecified; I12.0 Hypertensive chronic kidney disease with stage 5 chronic kidney disease or end stage renal disease; N25.81 Secondary hyperparathyroidism of renal origin; K21.9 Gastro-esophageal reflux disease without esophagitis; E87.6 Hypokalemia; E83.42 Hypomagnesemia; E83.39 Other disorders of phosphorus metabolism; Z79.82 Long term (current) use of aspirin; Z79.899 Other long term (current) drug therapy; Z88.5 Allergy status to narcotic agent; Z88.1 Allergy status to other antibiotic agents; E86.0 Dehydration; D64.9 Anemia, unspecified

== ENCOUNTER → 2016-10-18 | Outpatient (REF) | payer MEDICARE, BC ==
[~2016-10-18] MED LIST changes: +CALC1CAP31 PO
== END ==
LOC: M LAB REF 11:18
PROVIDERS: ATTEND Internal Medicine Nephrology
DX: Z94.0 Kidney transplant status (principal)

== ENCOUNTER → 2016-12-30 | Outpatient (REF) | payer MEDICARE, BC | LOC: M LAB REF 08:13 | PROVIDERS: ATTEND Internal Medicine Nephrology | DX: Z94.0 Kidney transplant status (principal) ==

== ENCOUNTER → 2017-01-23 | Outpatient (REF) | payer MEDICARE, BC ==
[~2017-01-23] MED LIST changes: +AUGM875T28 PO; +AZIT500T2 PO; -VITA100037 PO; +VITA100067 PO
== END ==
LOC: M LAB REF 13:37
PROVIDERS: ATTEND Surgery
DX: C44.619 Basal cell carcinoma of skin of left upper limb, including shoulder (principal)

== ENCOUNTER 2017-02-10 08:28 | Day surgery (SDC) | payer MEDICARE, BC ==
[~2017-02-10] VITALS: Ht 170.2 cm; Wt 78.9 kg
[~2017-02-10 08:28] MED LIST changes: -AUGM875T28 PO; -AZIT500T2 PO
[2017-02-10] MEDS ORDERED: LR 1,000 ML IV ONE (09:00)
[2017-02-10] MEDS ORDERED: LIDOCAINE W/EPINEPHRINE 1% 20ML VIAL As Ordered ONE (10:17)
[2017-02-10] MEDS ORDERED: LIDOCAINE 2% INJ 100 MG/5 ML SDV (FOR ANES.) As Ordered ONE (11:03)
[2017-02-10] MEDS ORDERED: MIDAZOLAM INJ 2 MG/2 ML VIAL (J2250) As Ordered ONE (11:03)
[2017-02-10] MEDS ORDERED: PROPOFOL 200 MG/20 ML VIAL As Ordered ONE (11:03)
[2017-02-10] MEDS ORDERED: fentaNYL 100 MCG/2 ML INJECTION (J3010) As Ordered ONE (11:03)
[2017-02-10] MEDS ORDERED: ONDANSETRON 4MG/2ML VIAL (J2405) As Ordered ONE (11:03)
[2017-02-10] MEDS ORDERED: METOCLOPRAMIDE INJ 10MG/2ML VIAL (J2765) IV PRN (12:45)
[2017-02-10] MEDS ORDERED: ONDANSETRON 4MG/2ML VIAL (J2405) IV PRN (12:45)
[2017-02-10] MEDS ORDERED: ACETAMINOPHEN TAB 650MG DOSE (2X325MG) PO PRN (12:45)
[2017-02-10] MEDS ORDERED: LR 1,000 ML IV SCH (12:45)
[2017-02-10 13:30] VITALS: BP 144/82
--- NOTE | 2017-02-11 06:40 | RO ---
DATE OF PROCEDURE: 02/10/2017 PREOPERATIVE DIAGNOSIS: Right forearm lesions times two. POSTOPERATIVE DIAGNOSIS: Right forearm lesions times two. PROCEDURE: Excision of two right forearm lesions. SURGEON: Dr. Mateo Taylor. VP ANCILLARY: None. ANESTHESIA: IV sedation with 10 mL of 1% lidocaine local. COMPLICATIONS: None. INDICATION FOR PROCEDURE: The patient is a 61-year-old male who presents with rapidly growing lesions on the right forearm. He was in my office to have a left upper arm basal cell carcinoma removed and the reason we did not take the ones off the right arm at the same time was due to their size and location right on top of an AV fistula. Because of that, recommendation was to take them off here in the operating room. Risks and benefits of the procedure not limited to but including bleeding, infection, damage to his fistula, seroma formation, need for further surgery were discussed in detail with the patient and the patient's . Informed consent was obtained and procedure was planned. PROCEDURE: The patient brought back to operating room two. After sufficient sedation, the right forearm was sterilely prepped and draped with Betadine. Next a time-out was done to confirm proper patient and proper procedure. Following that, lidocaine was injected underneath both lesions. Once they are both anesthetized starting with the right lateral lesion, an elliptical incision was made with a 15 blade scalpel. The lesion was removed intact measuring 1.5 cm wide x 3 cm in length. Once this lesion was removed, the skin was undermined for about 2 cm in all directions to be able to close it. Once that was finished, the skin was approximated with #4-0 Nylon interrupted sutures. The same procedure was done to the other lesion just medial to this lesion. This lesion measured about 2-1/2 cm wide x 5 cm in length and was also undermined skin edges circumferentially to allow for closure. Skin incision was brought together also with #4-0 Nylon interrupted sutures. Once this was closed, the area was cleaned and dried, 4 x 4 and tape were applied thus ending procedure.
== END 2017-02-10 13:35 | disposition home or self-care (01) ==
LOC: M SDC 08:28
PROVIDERS: ATTEND Surgery
DX: C44.622 Squamous cell carcinoma of skin of right upper limb, including shoulder (principal); D04.61 Carcinoma in situ of skin of right upper limb, including shoulder; L57.0 Actinic keratosis; L56.8 Other specified acute skin changes due to ultraviolet radiation; I10 Essential (primary) hypertension; E21.3 Hyperparathyroidism, unspecified; K21.9 Gastro-esophageal reflux disease without esophagitis; R06.02 Shortness of breath; Z88.1 Allergy status to other antibiotic agents; Z79.82 Long term (current) use of aspirin; Z79.899 Other long term (current) drug therapy; Z86.73 Personal history of transient ischemic attack (TIA), and cerebral infarction without residual deficits; Z88.8 Allergy status to other drugs, medicaments and biological substances
CPT/HCPCS: 11603; 11606; 36415; 84132; 88305; J0690; J2250; J2405; J3010

== ENCOUNTER 2017-03-07 12:29 | Inpatient (IN) | payer MEDICARE, BC ==
[~2017-03-07] VITALS: Ht 170.2 cm; Wt 78.3 kg
[2017-03-07] MEDS ORDERED: NS 1,000 ML IV SCH (13:19)
[2017-03-07] MEDS ORDERED: ACETAMINOPHEN TAB 650MG DOSE (2X325MG) PO ONE (13:30)
[2017-03-07 14:14] LABS: BASO % 0.2 % (0.0-1.0); EOS % 0.4 % (0.0-3.0); LARGE UNSTAINED CELL # 0.2 K/mm3 (0.0-0.4); LARGE UNSTAINED CELL % 3.1 % (0.0-4.0); LYMPH # 0.5 K/mm3 (1.5-4.5); LYMPH % 6.8 % (24.0-44.0); MEAN CORPUSCULAR HEMOGLOBIN 28.8 pg (27.0-33.0); MEAN CORPUSCULAR HGB CONC 33.9 g/dl (32.0-36.5); MONO # 0.3 K/mm3 (0.0-0.8); MONO % 6.1 % (0.0-5.0); NEUTROPHILS # 4.5 K/mm3 (1.8-7.7); NEUTROPHILS % 83.5 % (36.0-66.0); RED CELL DISTRIBUTION WIDTH 13.8 % (11.5-14.5); WHITE BLOOD COUNT 5.4 K/mm3 (4.0-10.0)
[2017-03-07 14:25] LABS: PLATELET COUNT, AUTOMATED 99 k/mm3 (150-450)
[2017-03-07 14:32] LABS: ALBUMIN 3.5 GM/DL (3.2-5.2); ALBUMIN/GLOBULIN RATIO 1.09 (1.00-1.93); BILIRUBIN,DIRECT 0.2 MG/DL (0.0-0.2); BILIRUBIN,TOTAL 1.1 MG/DL (0.2-1.0); CREATININE FOR GFR 2.07 MG/DL (0.70-1.30); GLOMERULAR FILTRATION RATE 34.8 (>49); POTASSIUM SERUM 3.7 MEQ/L (3.5-5.1); TOTAL PROTEIN 6.7 GM/DL (6.4-8.2)
[2017-03-07] MEDS ORDERED: METOCLOPRAMIDE 10 MG TAB PO PRN (16:45)
[2017-03-07] MEDS ORDERED: SODIUM CHLORIDE 0.9% 1000 ML IV ONE (18:00)
[2017-03-07] MEDS: cefTRIAXone SOD 1 GM in D5W MINI-BAG PLUS 50 ML IV SCH (18:46)
[2017-03-07] MEDS: ACETAMINOPHEN TAB 650MG DOSE (2X325MG) PO PRN (18:46)
--- NOTE | 2017-03-07 18:47 | REP ---
CHEST X-RAY, PA AND LATERAL: 03/07/2017. Comparison: 10/12/2016, PA chest 06/02/2016. Clinical history: Fever. The two views show a left total shoulder arthroplasty. The lung cadena are adequately inflated. Some chronic basilar fibrotic changes, right greater than left noted. Cardiomegaly noted with some left atrial and ventricular enlargement, unchanged. The aorta is calcified and tortuous, but stable. The airway is midline. Pulmonary arteries are mildly prominent, but symmetric. There is no pulmonary edema, definite effusion or dense consolidation. No compression deformity in the spine. There are upper abdominal surgical clips. Impression: 1. Basilar fibrotic change without definite infiltrate, pleural effusion or pulmonary edema. 2. Cardiomegaly with some left atrial and ventricular enlargement. 3. Tortuous calcified aorta without change from prior studies. 4. Left total shoulder arthroplasty. No acute bony finding. Signed by Boone Bonilla MD 03/11/2017 10:47 A
[2017-03-07 20:30] VITALS: BP 138/80
[2017-03-07] MEDS: DOCUSATE SODIUM 100 MG CAP PO SCH (20:34)
[2017-03-07] MEDS: MAGNESIUM OXIDE 400 MG TAB (MAG-OX) PO SCH (20:36)
[2017-03-07] MEDS: CARVedilol 12.5 MG TAB PO SCH ×2 (20:36→20:58)
[2017-03-07] MEDS: AZITHROMYCIN INJ 500 MG, VIAL MATE ADAPTER 1 EACH in D5W 250 ML IV SCH (20:37)
[2017-03-07] MEDS: NS 1,000 ML IV SCH (20:38)
[2017-03-07] MEDS: amLODIPine 5 MG TAB PO SCH (20:40)
[2017-03-07] MEDS ORDERED: CINACALCET 30 MG TAB (SENSIPAR) PO SCH (21:00)
--- NOTE | 2017-03-07 21:44 | HPEPDOC ---
General Date of Admission Mar 07, 2017 at 17:19 Primary Care Physician: ALFONSO DENISE MD @ Attending Physician: SAMIRA ERIC MD Chief Complaint The patient is a 61-year-old male admitted with a reason for visit of Fever,Pna. History of Present Illness Patient is a 61 year old male with past medical history significant for kidney transplant, cyst of his liver, previous dialysis, hypertension presents to the ER with fever, chills, nausea and headache. This all started once a night. Started before going to bed. Patient noticed his temperature was elevated with fever above 100.4vF. Patient took Tylenol and went down to 98. Patient denied any fever yesterday. Patient also noticed she had been nauseated but no vomiting. Loose stools since Friday. Not liquid happening roughly twice a day. Normal color, brown. No bright red blood. Patient patient also been having a headache. Says it occurs on both sides. His like his eyes are puffing out spells or not. Has been taking Tylenol since until he can take. Is helping a little bit. Patient states this happens to him before. When he doesn't feel well he gets rundown and dehydrated has to be admitted. Last time this happened was October this year. Patient is not hospitalized since then. Patient roughly drinks 2 L a day. He follows this every day. Patient also noticed that today he was not urinating as much as he normally does. Patient is a paced distention to this. In addition his also helps him. Attention due to his kidney transplants. He called the office and was notified Dr. Denise and the other environmental engineer scientist regarding office today. They was told to come to the ER. He is currently not on dialysis but used to be prior to his second kidney transplant 2008. Home Medications Scheduled (Myfortic) 180 Mg Tab, 180 MG PO BID, (Reported) Amlodipine Besylate (Norvasc) 5 Mg Tab, 5 MG PO QHS, (Reported) Amoxicillin/Clavulanate Potas (Augmentin 875-125 mg) 1 Tab Tab, 875 MG PO BID Aspirin (Aspir-81) 81 Mg Tab, 81 MG PO DAILY, (Reported) Azithromycin (Azithromycin) 500 Mg Tab, 500 MG PO QPM Calcitriol (Calcitriol) 0.25 Mcg Cap, 0.5 MCG PO DAILY, (Reported) Carvedilol (Coreg) 25 Mg Tab, 25 MG PO BID, (Reported) Cinacalcet Hydrochloride (Sensipar) 30 Mg Tab, 30 MG PO 2XWK, (Reported) FRIDAY & FRIDAY QHS Magnesium Oxide (Magnesium Oxide 400) 400 Mg Tab, 800 MG PO BID, (Reported) Omeprazole (Prilosec) 20 Mg Cap, 20 MG PO DAILY, (Reported) Potassium Phosphate Monobasic (K-Phos) 500 Mg Tab, 500 MG PO BID, (Reported) Prednisone (Prednisone) 5 Mg Tab, 5 MG PO DAILY, (Reported) Tacrolimus (Prograf) 0.5 Mg Cap, 0.5 MG PO BID, (Reported) Vitamin D (Vitamin D) 1,000 Unit Cap, 1,000 UNIT PO DAILY, (Reported) Scheduled PRN Acetaminophen (Tylenol Extra Strength) 500 Mg Tab, 1,000 MG PO Q6H PRN for PAIN, (Reported) Metoclopramide HCl (Reglan) 10 Mg Tab, 10 MG PO PRN PRN for NAUSEA, (Reported) Allergies Coded Allergies: Vancomycin (Verified Adverse Reaction, Intermediate, confusion, 02/03/17) Codeine (Verified Adverse Reaction, Mild, NAUSEA/VOMITING, 02/03/17) Hydrocodone (Verified Adverse Reaction, Mild, NAUSEA, 02/10/17) Meperidine (Verified Adverse Reaction, Mild, NAUSEA/VOMITING, 02/03/17) Oxycodone (Verified Adverse Reaction, Mild, NAUSEA/VOMITING, 02/03/17) Morphine (Unverified Adverse Reaction, Unknown, VOMIT, 02/03/17) Past Medical History Medical History 1. History of kidney transplants, 1992 2008 2. End-stage renal disease 3. Hypertension 4. GERD 5. Anxiety 6. History of sarcoidosis Surgical History 1. Renal transplant 2, 1992, 2008 2. Cholecystectomy 3. Cataract surgery 4. Left hip replacement 5. Left shoulder replacement 6. Right arm AV fistula 7. Surgical intervention of cyst 8. Lung surgery for drainage of hemothorax Family History Patient was adopted. Does not know family history. Social History * Smoker: Denies Alcohol: Denies Drugs: denies Recent Travel/Sick Contacts: Denies: Recent travel Denies smoking, alcohol, illicit substances. Denies sick contacts. Denies recent travel. Has traveled to [place] as early as the spring. Review of Symptoms Constitutional: Reports: Chills (positive for right years.), Fever ( temperature is high as 101.4. Decreased with Tylenol down to 90F.), Denies: Malaise Eyes: Denies: Pain, Vision change ENT: Reports: Head Aches Skin: Reports: Other (bruises due to bumping into things. Nothing new.), Denies: Rash, Lesions Pulmonary: Reports: Cough (nonproductive.), Denies: Dyspnea Cardiovascular: Denies: Chest Pain, Palpitations Gastrointestinal: Reports: Nausea, Other Symptoms (loose BMs this morning. 2. No liquid diarrhea.), Denies: Vomiting, Diarrhea, Melena, Hematochezia Genitourinary: Denies: Dysuria, Frequency, Incontinence, Hematuria Hematologic: Denies: Bruising Musculoskeletal: Denies: Neck Pain, Back Pain Neurological: Denies: Weakness, Numbness Psych: Reports: Mood Normal Physical Examination General Exam: Positive: Alert, Cooperative, No Acute Distress Eye Exam: Positive: PERRLA, Conjunctiva & lids normal, EOMI, Negative: Sclera icteric ENT Exam: Positive: Atraumatic, Mucous membr. moist/pink, Pharynx Normal, Tongue Midline, Negative: Pharyngeal Edema, Nares Patent Neck Exam: Positive: Supple, Negative: JVD, thyromegaly Chest Exam: Positive: Clear to auscultation, Normal air movement, Negative: Rales, Rhonchi Heart Exam: Positive: Rate Normal, Normal S1, Normal S2, Negative: Murmurs Abdomen Exam: Positive: Normal bowel sounds, Soft, Other (distended. ), Negative: Tenderness, Hepatospenomegaly Extremity Exam: Negative: Clubbing, Cyanosis, Edema Skin Exam: Negative: Rash, Breakdown Neuro Exam: Positive: Normal Gait Psych Exam: Positive: Mental status NL, Memory Intact, Oriented x 3, Negative: Anxiety Vital Signs Vital Signs Date Time Temp Pulse Resp B/P (MAP) Pulse Ox O2 Delivery O2 Flow Rate FiO2 03/07/17 18:25 98.3 90 16 125/74 (91) 96 Room Air Laboratory Data Labs 24H Laboratory Tests 2 03/07/17 13:22: White Blood Count 5.4, Red Blood Count 4.58, Hemoglobin 13.2L, Hematocrit 38.9L , Mean Corpuscular Volume 85.0, Mean Corpuscular Hemoglobin 28.8, Mean Corpuscular Hemoglobin Concent 33.9, Red Cell Distribution Width 13.8, Platelet Count 99L, Neutrophils (%) (Auto) 83.5H, Lymphocytes (%) (Auto) 6.8L, Monocytes (%) (Auto) 6.1H, Eosinophils (%) (Auto) 0.4, Basophils (%) (Auto) 0.2, Neutrophils # (Auto) 4.5, Lymphocytes # (Auto) 0.5L, Monocytes # (Auto) 0.3, Eosinophils # (Auto) 0.0, Basophils # (Auto) 0.0, Large Unclassified Cells % 3.1 , Large Unclassified Cells # 0.2, Anion Gap 7L, Glomerular Filtration Rate 34.8L , Lactic Acid Level 1.0, Calcium Level 9.0, Aspartate Amino Transf (AST/SGOT) 19 , Alanine Aminotransferase (ALT/SGPT) 28, Alkaline Phosphatase 78, Total Bilirubin 1.1H, Direct Bilirubin 0.2, C-Reactive Protein, Quantitative 11.90H, Total Protein 6.7, Albumin 3.5, Albumin/Globulin Ratio 1.09 03/07/17 13:39: Urine Appearance CLEAR, Urine Color YELLOW, Urine pH 6.0, Urine Specific [place] 1.016, Urine Protein 1+H, Urine Glucose (UA) NEGATIVE, Urine Ketones NEGATIVE, Urine Urobilinogen 0.2, Urine Bilirubin NEGATIVE, Urine Leukocyte Esterase NEGATIVE, Urine Blood 1+H, Urine Nitrite NEGATIVE, Urine WBC (Auto) 1, Urine RBC (Auto) 6H, Urine Hyaline Casts (Auto) 0, Urine Bacteria (Auto) NEGATIVE, Urine Squamous Epithelial Cells 0, Urine Sperm (Auto) CBC/BMP Laboratory Tests 03/07/17 13:22 Red Blood Count 4.58, Mean Corpuscular Volume 85.0, Mean Corpuscular Hemoglobin 28.8, Mean Corpuscular Hemoglobin Concent 33.9, Red Cell Distribution Width 13.8 , Neutrophils (%) (Auto) 83.5 H, Lymphocytes (%) (Auto) 6.8 L, Monocytes (%) ( Auto) 6.1 H, Eosinophils (%) (Auto) 0.4, Basophils (%) (Auto) 0.2, Neutrophils # (Auto) 4.5, Lymphocytes # (Auto) 0.5 L, Monocytes # (Auto) 0.3, Eosinophils # (Auto) 0.0, Basophils # (Auto) 0.0 Microbiology Microbiology 03/07/17 Blood Culture, Received Pending 03/07/17 Blood Culture, Received Pending 03/07/17 Urine Culture, Received Pending Assessment/Plan 1. Fevers, chills, possible infection Patient has had fevers and rigors for several days. Ordering GI panel, Respiratory panel, blood culture and urine culture. CXR: impression: basilar fibrotic change without infiltrates, pleural effusion or pulmonary edema. Monitoring WBC count and temperature. C reactive protein ordered. Giving patient IV fluids. Lactic acid 1.0. 2. Pneumonia, possible Patient may have possible pneumonia. Treating patient with Ceftriaxone and Azithromycin IV daily. Patient has a cough. Ordering sputum culture. 3. Post kidney transplants Patient is on Tacrolimus, Myfortic, Prednisone. Continue home dose. Consulting Nephrology. Agree to see the patient. Appreciate their assistance in management of this patient. Monitor electrolytes. 4. Thrombocytopenia Chronic. Monitor at this time. 5. Chronic Kidney Disease Monitor BP. Cr up from baseline 1.9. Most likely due to dehydration. 6. Loose stools, possible diarrhea Ordering GI panel for possible infectious causes. 7.Hypertension Continue amlodipine and coreg. montior BP. 8. GERD continue home PPI. 9. CODE STATUS: DNR/ DNI Plan / VTE VTE Prophylaxis Ordered?: Yes (Teds, sequentials, heparin) Plan Disposition PT consult placed. Started on renal diet. GME ATTESTATION GME ATTESTATION My preceptor for this patient encounter was physically present in the building during the encounter and was fully available. As needed, all aspects of the patient interview, examination, medical decision making process, and medical care plan development were reviewed and approved by the preceptor. Preceptor is aware and concurs with the plan as stated in the body of this note and will attest to such by his/her cosignature. ATTENDING NOTE Patient seen and examined. Case discussed with the resident in detail. Agree with above. NESS Velez MD, DO Mar 07, 2017 19:03 SAMIRA ERIC MD Mar 10, 2017 11:47
[2017-03-07] MEDS: MYFORTIC 180 MG PO SCH (21:56)
[2017-03-07] MEDS: TACROLIMUS 0.5 MG CAP PO SCH (21:56)
[2017-03-07] MEDS: ONDANSETRON 4MG/2ML VIAL (J2405) IV PRN (22:48)
[2017-03-07] MEDS: HEPARIN SOD (PORCINE) 5000 UNITS/ML VIAL SC SCH (23:13)
[2017-03-08 02:00] VITALS: BP 130/84
[2017-03-08] MEDS: NS 1,000 ML IV SCH ×2 (05:53→20:17)
[2017-03-08 06:00] VITALS: BP 136/79
[2017-03-08 06:21] LABS: MEAN CORPUSCULAR HEMOGLOBIN 29.1 pg (27.0-33.0); MEAN CORPUSCULAR HGB CONC 34.3 g/dl (32.0-36.5); MEAN CORPUSCULAR VOLUME 84.9 fl (80.0-96.0); RED CELL DISTRIBUTION WIDTH 13.8 % (11.5-14.5); WHITE BLOOD COUNT 3.9 K/mm3 (4.0-10.0)
[2017-03-08 06:45] LABS: ALBUMIN 2.9 GM/DL (3.2-5.2); CALCIUM LEVEL 7.6 MG/DL (8.8-10.2); CREATININE FOR GFR 1.65 MG/DL (0.70-1.30); GLOMERULAR FILTRATION RATE 45.2 (>49); MAGNESIUM LEVEL 1.5 MG/DL (1.8-2.4); POTASSIUM SERUM 3.5 MEQ/L (3.5-5.1)
[2017-03-08] MEDS: DOCUSATE SODIUM 100 MG CAP PO SCH ×2 (09:36→20:17)
[2017-03-08] MEDS: VITAMIN D 1,000 INTERNATIONAL UNITS TABLET PO SCH (09:37)
[2017-03-08] MEDS: CARVedilol 12.5 MG TAB PO SCH ×2 (09:37→20:16)
[2017-03-08] MEDS: ASPIRIN 81 MG ENTERIC TAB PO SCH (09:37)
[2017-03-08] MEDS: predniSONE 5 MG TAB PO SCH (09:37)
[2017-03-08] MEDS: OMEPRAZOLE 20 MG CAP PO SCH (09:37)
[2017-03-08] MEDS: TACROLIMUS 0.5 MG CAP PO SCH ×2 (09:38→20:16)
[2017-03-08] MEDS: MAGNESIUM OXIDE 400 MG TAB (MAG-OX) PO SCH ×2 (09:38→20:15)
[2017-03-08] MEDS: CALCITRIOL 0.25 MCG CAP (S0169) PO SCH (09:38)
[2017-03-08] MEDS: MYFORTIC 180 MG PO SCH ×2 (09:39→20:16)
[2017-03-08] MEDS ORDERED: SODIUM PHOSPHATE INJ 20 MMOL in D5W 250 ML IV ONE (11:00)
--- NOTE | 2017-03-08 12:04 | IPNPDOC ---
Text Note Date of Service The patient was seen on 03/08/17. NOTE CC:The patient is a 61-year-old male admitted with a reason for visit of Fever, Pna. Subjective:Patient is feeling better. Discussed with patient walking around the hallways for DVT prophylaxis. Patient agreed. Denies any abdominal pain. Objective: Vitals: (see below) General: No acute distress, laying comfortably in bed. HEENT: Moist mucous membranes. Neck: No JVD or lymphadenopathy Cardiac: Normal S1 and S2. No murmurs. Pulm: Clear to auscultation bilaterally. No wheezing, rhonchi. Abd: Round. No tenderness to palpation. Ext: No lower extremity edema or cyanosis. Pysch: Normal affect. Labs (see below) Images: Assessment/Plan 1. Fevers, chills Patient has had fevers and rigors for several days. Temperature last night of 101.7. Continue to monitor. Looking for source of infection. Respiratory panel negative. Urine culture negative. Blood culture x2 pending. Will obtain GI panel today. Monitoring WBC count and temperature. C reactive protein ordered. Giving patient IV fluids. Lactic acid 1.0 on admission. 2. Pneumonia, possible Patient may have possible pneumonia. Treating patient with Ceftriaxone and Azithromycin IV daily. Patient has a cough. Ordering sputum culture. 3. Post kidney transplants Patient is on Tacrolimus, Myfortic, Prednisone. Continue home dose. Consulting Nephrology. Agree to see the patient. Appreciate their assistance in management of this patient. Monitor electrolytes. 4. Hypocalcemia Corrected calcium 8.5. Checking ionized calcium. 5. Thrombocytopenia Chronic. Monitor at this time. 6. Chronic Kidney Disease Monitor BP. Cr up from baseline 1.9. Most likely due to dehydration. 7. Loose stools, possible diarrhea Ordering GI panel for possible infectious causes. 8.Hypertension Continue amlodipine and coreg. The Coreg was held last night due to low heart rate, given this morning. Montior BP. 9. GERD continue home PPI. DVT prophy: Stockings/TEDS. Heparin D/C. Ambulation. Dispo:Continue to monitor patient. Looking for source of infection. VS,Fishbone, I+O VS, Fishbone, I+O Laboratory Tests 03/07/17 13:22 Red Blood Count 4.58, Mean Corpuscular Volume 85.0, Mean Corpuscular Hemoglobin 28.8, Mean Corpuscular Hemoglobin Concent 33.9, Red Cell Distribution Width 13.8 , Neutrophils (%) (Auto) 83.5 H, Lymphocytes (%) (Auto) 6.8 L, Monocytes (%) ( Auto) 6.1 H, Eosinophils (%) (Auto) 0.4, Basophils (%) (Auto) 0.2, Neutrophils # (Auto) 4.5, Lymphocytes # (Auto) 0.5 L, Monocytes # (Auto) 0.3, Eosinophils # (Auto) 0.0, Basophils # (Auto) 0.0 03/08/17 05:29 Red Blood Count 4.05 L, Mean Corpuscular Volume 84.9, Mean Corpuscular Hemoglobin 29.1, Mean Corpuscular Hemoglobin Concent 34.3, Red Cell Distribution Width 13.8, Anion Gap 10 Vital Signs Date Time Temp Pulse Resp B/P (MAP) Pulse Ox O2 Delivery O2 Flow Rate FiO2 03/08/17 09:37 65 136/79 03/08/17 06:00 99.1 16 98 Room Air I&O- Last 24 Hours up to 6 AM 03/08/17 05:59 Intake Total 1670 ml Output Total 975 ml Balance 695 ml NESS ZHANG DO Mar 08, 2017 11:28 SHAHLA ORTIZ MD Mar 10, 2017 15:39
[2017-03-08 14:00] VITALS: BP 114/67
[2017-03-08] MEDS: cefTRIAXone SOD 1 GM in D5W MINI-BAG PLUS 50 ML IV SCH (17:43)
[2017-03-08] MEDS: HEPARIN SOD (PORCINE) 5000 UNITS/ML VIAL SC SCH (19:46)
[2017-03-08] MEDS: amLODIPine 5 MG TAB PO SCH (20:16)
[2017-03-08] MEDS: AZITHROMYCIN INJ 500 MG, VIAL MATE ADAPTER 1 EACH in D5W 250 ML IV SCH (20:17)
[2017-03-08] MEDS: ONDANSETRON 4MG/2ML VIAL (J2405) IV PRN (21:29)
[2017-03-08 22:00] VITALS: BP 146/81
--- NOTE | 2017-03-08 22:37 | CR ---
DATE OF CONSULTATION: 03/08/2017 REQUESTING PHYSICIAN: Octavio Montes De Oca MD CONSULTING PHYSICIAN: Chris Cannon MD REASON FOR CONSULTATION: Management of acute kidney injury in this patient with history of renal allograft. CHIEF COMPLAINT: The patient presented to the hospital yesterday with fever, chills and runny nose. HISTORY OF PRESENT ILLNESS: Mr. Santos Leonard is a 61-year-old male with past medical history of donor kidney transplant. This is the second transplant, which was done in 2008, chronic kidney disease stage III with a baseline creatine of around 1.4. He presented to the hospital yesterday with fever, chills, nausea, decreased appetite, headache. T-max recorded in the hospital last night is 101.7 degrees Fahrenheit. The patient reported that he was taking Tylenol, which was helping with the fever, but he was nauseated. He has not eaten well for the last one week. The patient also started having loose stools about four days ago. When the patient arrived in the emergency room, he was found to have creatine of 2. He was started on empiric IV antibiotics and IV fluids. Nephrology service was called for further help in the management of acute kidney injury superimposed on chronic kidney disease stage III and management of immunosuppression in this patient with history of donor kidney transplant. When I saw the patient today morning, the patient reported that he was feeling a little better as compared with yesterday after IV fluids and IV antibiotics. PAST MEDICAL HISTORY: The patient has past medical history of donor kidney transplant times two. First one was in 1992, the second one was in 2008. Chronic kidney disease stage III with a baseline creatine of around 1.4, hypertension, gastroesophageal reflux disease, anxiety disorder, history of sarcoidosis in the past, secondary hyperparathyroidism. PAST SURGICAL HISTORY: The patient got donor kidney transplant times two. The second one was in 2008, status post cholecystectomy in the past, history of cardiac surgery, status post left hip replacement, status post left shoulder replacement, history of right forearm atrioventricular (AV) fistular placement and history of lung surgery for drainage of hemithorax in the past. ALLERGIES: The patient is allergic to CODEINE, HYDROCODONE, MEPERIDINE, MORPHINE, OXYCODONE and VANCOMYCIN. FAMILY HISTORY: No significant family history of end-stage renal disease requiring hemodialysis. SOCIAL HISTORY: The patient denies any smoking, illicit drug abuse or alcohol abuse. He denies any recent sick contacts. REVIEW OF SYSTEMS: CONSTITUTIONAL: The patient reports chills and rigors and he reports fever at home as well. EYES: He denies any blurry vision or double vision. ENT: He denies any dysuria or odynophagia or ear discharge. CARDIOVASCULAR: He denies any chest pain, palpitations or edema. RESPIRATORY: He reports some cough, which is nonproductive. GASTROINTESTINAL (GI): The patient reports nausea, decreased appetite and loose stools for about the last three to four days. GENITOURINARY (): He denies any dysuria or hematuria. MUSCULOSKELETAL: He denies any muscle aches and pains. CENTRAL NERVOUS SYSTEM: He denies any weakness, numbness or strokes. PSYCHIATRIC: He denies any depression or anxiety at this time. HEMATOLOGIC/ONCOLOGIC: He denies any easy bruising or bleeding. ENDOCRINE: He reports secondary hypothyroidism. All other review of systems is negative. PHYSICAL EXAMINATION: GENERAL: The patient is awake, alert, oriented times three, sitting in the bed at this time in no apparent distress. VITAL SIGNS: Temperature is 99.1 degrees Fahrenheit. Blood pressure is 136/79, pulse is 65, respiratory rate of 16, saturating 98% on room air. Intake and output: Urine output recorded is 575 mL yesterday, 1 liter so far today since overnight. Weight in the bed scale is 78 kg. HEAD AND NECK EXAM: Extraocular muscles intact. Pupils equally round and reactive to light. Mucous membranes are moist. Neck is supple. There is no jugular venous distension (JVD). CARDIOVASCULAR: S1, S2, regular rate, no murmur, rub or gallop. RESPIRATORY: Chest is clear to auscultation bilaterally. Bilateral equal air entry. No rales or rhonchi. ABDOMEN: Soft, positive bowel sounds. Nontender, no ascites, no organomegaly. The patient has a left lower quadrant renal allograft and tenderness and bruit. MUSCULOSKELETAL : No clubbing or cyanosis. Pulses are 2+. The patient has a right forearm arteriovenous (AV) fistula with positive thrill and bruit. CENTRAL NERVOUS SYSTEM: No focal neurological deficit. Power is 5/5 in all extremities. SKIN: No rashes or ulcers. PSYCHIATRIC: Normal mood and affect. LYMPH NODE: No significant cervical, axillary or inguinal lymphadenopathy. LABORATORY REVIEW: Complete blood count (CBC) showed a white blood count (WBC) of 3.9, hemoglobin 11.8, platelets are 88. Urinalysis showed 1+ protein. Negative nitrite. Negative leukocyte esterase. Basic metabolic panel (BMP) showed sodium 141, potassium 3.5, chloride 109, bicarbonate 22, BUN 23, creatine is 1.6; it was 2.0 yesterday. Lactic acid 1. Calcium 7.6. Phosphorus is 2. Magnesium is 1.5. C-reactive protein (CRP) is 10.2, albumin is 2.9. MICROBIOLOGY: Blood cultures are pending. Gastrointestinal (GI) panel is pending. Urine culture is negative. Respiratory viral panel is negative. IMAGING: Chest x-ray was done yesterday, which showed bibasilar fibrotic changes without definite eventful trait, effusion or edema. CURRENT INPATIENT MEDICATIONS: The patient's inpatient medications are reviewed. He is currently on azithromycin 500 mg IV every 24 hours, Rocephin 1 gram IV every 24 hours, normal saline at 100 mL an hour. He was given sodium phosphate 20 mmol IV times one dose. He is on Tylenol as needed, amlodipine 5 mg daily, aspirin 81 mg daily, calcitriol 0.5 mcg daily, Coreg 25 mg by mouth twice a day, Sensipar 30 mg by mouth Friday, Friday, Friday, Colace twice a day, magnesium oxide 800 mg by mouth twice a day, omeprazole 20 mg daily, Zofran IV as needed, prednisone 5 mg daily, Myfortic 180 mg by mouth twice a day, Prograf 0.5 mg by mouth twice a day, vitamin D 1000 units by mouth daily. ASSESSMENT: 61-year-old male with past medical history of chronic kidney disease, stage III, status post donor kidney transplant in 2008, hypertension, admitted this time with fever, chills, rigors and acute injury superimposed on chronic kidney disease. PLAN: 1. Fever with chills and rigors. The patient has vague symptoms. He has dry cough and he had some loose stools as well. Respiratory viral panel is negative so far. Gastrointestinal (GI) panel is also negative so far. Continue empiric IV antibiotics. Continue IV fluid hydration. The patient is symptomatically getting better. 2. Kidney transplant status. Continue current dose of Prograf, Myfortic and prednisone at home dosages. No need of stopping rejection medications at this time. 3. Acute kidney injury superimposed on chronic kidney disease. The patient's baseline creatine is around 1.4. Acute kidney injury is most likely secondary to dehydration, volume depletion and decreased oral intake. Creatine is improving with the IV hydration that was done overnight. It is down to 1.6. Continue the IV fluids. They will be stopped today in the evening time. 4. Hypertension. Blood pressure is acceptable at this time. Continue current dose of amlodipine and Coreg with holding parameters. 5. Secondary hyperparathyroidism. Continue current dose of calcitriol 0.5 mg by mouth daily 6. Sensipar 30 mg by mouth Friday, Friday, Friday. 7. Hypophosphatemia. The patient was given a dose of sodium phosphate 20 mmol IV times one dose. 8. Hypomagnesemia. The patient is currently on magnesium oxide 800 mg by mouth twice a day. Thank you for involving in the care of this patient. We shall be happy to follow the patient along with you tomorrow morning.
[2017-03-09 02:00] VITALS: BP 140/79
[2017-03-09] MEDS: ACETAMINOPHEN TAB 650MG DOSE (2X325MG) PO PRN (02:07)
[2017-03-09 06:00] VITALS: BP 141/80
[2017-03-09 06:06] LABS: MEAN CORPUSCULAR HEMOGLOBIN 28.8 pg (27.0-33.0); MEAN CORPUSCULAR HGB CONC 33.6 g/dl (32.0-36.5); MEAN CORPUSCULAR VOLUME 85.6 fl (80.0-96.0); RED CELL DISTRIBUTION WIDTH 13.9 % (11.5-14.5); WHITE BLOOD COUNT 3.9 K/mm3 (4.0-10.0)
[2017-03-09 06:34] LABS: ALBUMIN 2.8 GM/DL (3.2-5.2); CALCIUM LEVEL 7.6 MG/DL (8.8-10.2); CREATININE FOR GFR 1.6 MG/DL (0.70-1.30); GLOMERULAR FILTRATION RATE 46.9 (>49); MAGNESIUM LEVEL 1.6 MG/DL (1.8-2.4); PHOSPHORUS LEVEL 2.9 MG/DL (2.5-4.9); POTASSIUM SERUM 3.4 MEQ/L (3.5-5.1)
[2017-03-09] MEDS: CALCITRIOL 0.25 MCG CAP (S0169) PO SCH (08:52)
[2017-03-09] MEDS: MAGNESIUM OXIDE 400 MG TAB (MAG-OX) PO SCH ×2 (08:53→20:16)
[2017-03-09] MEDS: CARVedilol 12.5 MG TAB PO SCH ×2 (08:53→20:17)
[2017-03-09] MEDS: VITAMIN D 1,000 INTERNATIONAL UNITS TABLET PO SCH (08:53)
[2017-03-09] MEDS: predniSONE 5 MG TAB PO SCH (08:54)
[2017-03-09] MEDS: ASPIRIN 81 MG ENTERIC TAB PO SCH (08:54)
[2017-03-09] MEDS: OMEPRAZOLE 20 MG CAP PO SCH (08:54)
[2017-03-09] MEDS: TACROLIMUS 0.5 MG CAP PO SCH ×2 (08:54→20:16)
[2017-03-09] MEDS: MYFORTIC 180 MG PO SCH ×2 (08:54→20:15)
[2017-03-09] MEDS: DOCUSATE SODIUM 100 MG CAP PO SCH ×2 (08:57→20:19)
[2017-03-09] MEDS ORDERED: POTASSIUM CHLORIDE 10 MEQ SR TABLET PO ONE (11:00)
[2017-03-09] MEDS ORDERED: CALCIUM GLUCONATE 1,000 MG in D5W MINI-BAG PLUS 100 ML IV ONE (11:00)
--- NOTE | 2017-03-09 11:30 | IPN ---
DATE: 03/09/2017 Mr. Leonard is feeling well this morning. He would like to go home. He has no complaints of pain, chest pain, shortness of breath. He did have a fever last night. He says that we are never able to figure out the causes of his fever. T-max 100.9, T-current 98. Pulse 60, respiratory rate 18, blood pressure 141/80, 98% in room air. Input and output for positive fluid balance 1105, two bowel movements yesterday. Negative respiratory panel. Negative GI panel. Blood cultures are negative at 24 hours. At this point, he is awake, appropriately interactive. Somewhat flattened affect. Engaged in our conversation. Neck supple. Breathing symmetrical. I:E ratio 1:3. Speaking in complete sentences. No accessory muscle use. Heart regular rate and rhythm. Abdomen is tympanic, nontender. He has lower extremity edema. White cell count 3.9, hemoglobin 0.1, platelets 88. Potassium 3.4, BUN 23, creatinine 1.6. Whole blood ionized calcium 4.8, magnesium 1.6. ASSESSMENT: This is a 61-year-old with fever of unknown origin in the setting of immunocompromised from kidney transplant. PLAN: 1. Infectious disease: The patient is continued on broad-spectrum antibiotics. Blood culture not yet 48 hours old. Respiratory and GI panels are negative. Continue current care. 2. The patient is being treated for, but at this point, is not having many symptoms related to pneumonia clinically. 3. The patient is status post kidney transplant and is on Tacrolimus, Myfortic and prednisone. Nephrology following. 4. The patient has hypocalcemia which has resolved. 5. The patient has hypokalemia, which is being repleted. 6. The patient has hypomagnesemia, which is being repleted. 7. The patient has a history of hypertension, which is currently reasonably controlled for the current setting.
[2017-03-09] MEDS ORDERED: MAG SULF 1GM/100ML (MAG RUN) 1 GM in APPROPRIATE DILUENT 1 EA IV ONE (12:00)
[2017-03-09 14:00] VITALS: BP 118/68
--- NOTE | 2017-03-09 17:13 | IPN ---
DATE: 03/09/2017 SUBJECTIVE: The patient is seen and examined at the bedside today morning. His was also present at the bedside. The patient continues to be on intravenous (IV) fluid hydration at this time. The patient reports that he feels much better today; however, he reports a fever spike last night. Temperature maximum (T-max) was 100.9 degrees Fahrenheit. The patient is hemodynamically stable at this time. The renal function is also stable. Creatinine is at 1.6 at this time. REVIEW OF SYSTEMS: The patient denies any chills or rigors. He does report a fever spike, but he reports he was sleeping at that time when his fever was checked. He denies any chest pain, shortness of breath. He does report some dry cough. He denies any pain abdomen, constipation, or diarrhea. Rest of review of systems is negative. OBJECTIVE: VITAL SIGNS: T-max is 100.9 degrees Fahrenheit, temperature current is 98.6 degrees Fahrenheit, blood pressure is 118/68, pulse is 55, respiratory rate of 18, saturating 97% on room air. INTAKE AND OUTPUT: Urine output recorded as 1.6 liters yesterday, 1.3 liters so far today since overnight. Weight in the bed scale is 79 kg. PHYSICAL EXAMINATION: GENERAL: The patient is awake, alert, and oriented times three, lying in bed in no apparent distress. HEAD/NECK: Extraocular muscles intact. Pupils equal, round, and reactive to light. Mucous membranes are moist. Neck is supple. There is no jugular venous distention (JVD). CARDIOVASCULAR: S1, S2. Regular rate. No murmur, rub, or gallop. RESPIRATORY: Chest is clear to auscultation bilaterally. Bilateral equal air entry. No rales or rhonchi. ABDOMEN: Soft. Positive bowel sounds. Nontender. No ascites. No organomegaly. The patient has a left lower quadrant renal allograft with no tenderness and bruit. MUSCULOSKELETAL: No clubbing or cyanosis. Pulses are 2+. SKIN: No rashes or ulcer. PSYCHIATRIC: Normal mood and affect. LABORATORY DATA: CBC showed a WBC 3.9, hemoglobin 11.1, platelets are 88. BMP showed sodium 144, potassium 3.4, chloride 110, bicarbonate 24, BUN is 23, creatinine 1.6. Calcium 7.6. Whole blood ionized calcium is 4.8, phosphorus 2.9, magnesium is 1.6, albumin 2.8. MICROBIOLOGY: GI panel is negative. Respiratory viral panel is negative. Urine culture is negative. Blood cultures are negative so far. CURRENT INPATIENT MEDICATIONS: The patient's medications are all reviewed by me. I stopped the patient's intravenous (IV) normal saline. The patient was given a dose of magnesium sulfate 1 gram IV times one dose. He continues to be on IV Rocephin and azithromycin. There is no other change in the medications today. The patient was given a dose of potassium chloride 40 mEq times one dose today morning. ASSESSMENT: A 61-year-old male with past medical history of chronic kidney disease stage III, status post donor kidney transplant times two, second one was in 2008, hypertension, admitted this time with fever, chills, rigors, and acute kidney injury superimposed on chronic kidney disease. PLAN: 1. Fever with chills and rigors: The patient's mendoza cultures including gastrointestinal (GI) panel and respiratory panel are negative so far. He is being empirically treated with IV Rocephin and azithromycin. 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 I have sent the CMV and Catia-Antoine virus (EBV). The patient just had one fever spike yesterday. If patient remains stable by tomorrow, then he can be sent home on oral antibiotics. 2. Kidney transplant status: Renal function is stable now. He reports that his baseline creatinine fluctuates between 1.4 to 1.7. Creatinine is 1.6, which is close to his baseline. Continue current dose of Prograf, Myfortic, and prednisone. 3. Acute kidney injury superimposed on chronic kidney disease: It was secondary to dehydration, volume depletion and decreased oral intake. Creatinine has improved to 1.6. IV fluids have been stopped. 4. Hypertension: Blood pressure is acceptable at this time. Continue current dose of amlodipine and Coreg. 5. Hypomagnesemia: The patient was given a dose of magnesium sulfate 1 gram IV times one dose, and he is also on magnesium oxide 800 mg by mouth twice a day. 6. Hypokalemia: The patient was given a dose of potassium chloride 40 mEq by mouth times one dose. 7. Hypocalcemia: The patient was given a dose of calcium gluconate 1 gram IV times one dose. Ionized calcium level has improved now. 8. Disposition: If patient remains stable and afebrile in the next 24 hours, he can be discharged tomorrow morning and followup at the nephrology clinic within one week after discharge from the hospital. CMV and EBV results will be followed up as outpatient. Plan of care was discussed with the hospitalist team.
[2017-03-09] MEDS: cefTRIAXone SOD 1 GM in D5W MINI-BAG PLUS 50 ML IV SCH (18:09)
[2017-03-09] MEDS: AZITHROMYCIN INJ 500 MG, VIAL MATE ADAPTER 1 EACH in D5W 250 ML IV SCH ×2 (20:14→21:24)
[2017-03-09] MEDS: amLODIPine 5 MG TAB PO SCH (20:16)
[2017-03-09] MEDS ORDERED: AZITHROMYCIN 250 MG TAB PO SCH (21:00)
[2017-03-10 06:00] VITALS: BP 148/80
[2017-03-10 06:25] LABS: MEAN CORPUSCULAR HEMOGLOBIN 29.2 pg (27.0-33.0); MEAN CORPUSCULAR HGB CONC 34.1 g/dl (32.0-36.5); MEAN CORPUSCULAR VOLUME 85.6 fl (80.0-96.0); RED CELL DISTRIBUTION WIDTH 13.7 % (11.5-14.5); WHITE BLOOD COUNT 4.2 K/mm3 (4.0-10.0)
[2017-03-10 06:53] LABS: ALBUMIN 3.2 GM/DL (3.2-5.2); CALCIUM LEVEL 8.3 MG/DL (8.8-10.2); CREATININE FOR GFR 1.51 MG/DL (0.70-1.30); GLOMERULAR FILTRATION RATE 50.1 (>49); MAGNESIUM LEVEL 1.7 MG/DL (1.8-2.4); PHOSPHORUS LEVEL 2.8 MG/DL (2.5-4.9); POTASSIUM SERUM 4.1 MEQ/L (3.5-5.1)
[2017-03-10] MEDS: MAGNESIUM OXIDE 400 MG TAB (MAG-OX) PO SCH (09:26)
[2017-03-10] MEDS: TACROLIMUS 0.5 MG CAP PO SCH (09:27)
[2017-03-10] MEDS: MYFORTIC 180 MG PO SCH (09:27)
[2017-03-10] MEDS: OMEPRAZOLE 20 MG CAP PO SCH (09:27)
[2017-03-10] MEDS: VITAMIN D 1,000 INTERNATIONAL UNITS TABLET PO SCH (09:27)
[2017-03-10] MEDS: DOCUSATE SODIUM 100 MG CAP PO SCH (09:27)
[2017-03-10 09:28] VITALS: BP 148/80
[2017-03-10] MEDS: predniSONE 5 MG TAB PO SCH (09:28)
[2017-03-10] MEDS: CALCITRIOL 0.25 MCG CAP (S0169) PO SCH (09:28)
[2017-03-10] MEDS: ASPIRIN 81 MG ENTERIC TAB PO SCH (09:28)
[2017-03-10] MEDS: CARVedilol 12.5 MG TAB PO SCH (09:28)
[2017-03-10] MEDS ORDERED: AZIT500T2 PO (10:34)
[2017-03-10] MEDS ORDERED: AUGM875T28 PO (10:34)
--- NOTE | 2017-03-10 15:17 | DSES ---
DATE OF ADMISSION: 03/07/2017 DATE OF DISCHARGE: 03/10/2017 SPECIALISTS INVOLVED IN CARE: Dr. Cannon and Dr. Giles DISCHARGE DIAGNOSES: Fever of unknown origin, possible pneumonia. Hypocalcemia. Hypokalemia. Hypomagnesemia. Hypertension. Gastroesophageal reflux disease (GERD). Anxiety. History of sarcoidosis. Status post kidney transplant. 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 The following is a summary of his presentation: This is a 61-year-old who presented with fever, chills, nausea and headache, was admitted to the hospitalist service with nephrology consulting, treated empirically with broad-spectrum antibiotics for suspected community-acquired pneumonia. Improved, his fever curve broke, testing was begun for viral etiology, which is pending at the time of discharge. Blood cultures were negative at 72 hours. Gastrointestinal (GI) and respiratory panel were negative. The patient improved markedly. On the day of discharge, temperature is 98.3, pulse 52, respiratory rate 18, blood pressure 148/80, 98% on room air. Awake, appropriately interactive, ambulating without difficulty. He has been doing laps in the hallway for the past few days. Mucous membranes are moist. Neck is supple. Breathing is symmetrical and rested. Heart: Regular rate and rhythm, normal S1, S2. White cell count 4.2, hemoglobin 11.8, platelets 114, BUN 21, creatinine 1.5. DISCHARGE INSTRUCTIONS INCLUDE THE FOLLOWING: Followup with Dr. Giles within 1 week. Activity and diet as tolerated. Continue amoxicillin/clavulanic acid 875 mg by mouth twice daily for 10 doses. Zithromax 500 mg daily for two doses. Tylenol as needed. Norvasc 5 mg by mouth daily at bedtime. Aspirin 81 mg by mouth daily. Calcitriol 0.5 mcg by mouth daily. Coreg 25 mg by mouth twice daily. Sensipar 30 mg by mouth twice weekly Magnesium oxide 800 mg by mouth twice daily. Reglan 10 mg by mouth as needed. Myfortic 180 mg by mouth twice daily. Omeprazole 20 mg by mouth daily. Potassium phosphate monobasic 500 mg by mouth twice daily. Prednisone 5 mg by mouth daily. Tacrolimus 0.5 mg by mouth twice daily. Vitamin D supplement.
--- NOTE | 2017-03-11 08:12 | IPN ---
DATE: 03/10/2017 SUBJECTIVE: The patient is seen this morning at the bedside. He reports he feels back to his baseline and continues to tolerate by mouth intake well. He remained afebrile overnight. His creatinine continues to down trend to 1.5 today. He is discharge pending. REVIEW OF SYSTEMS: The patient denies any overnight fever, chills, rigor. He denies any chest pain or shortness of breath. He denies abdominal pain, nausea, vomiting, diarrhea. Remainder of the review of systems is negative. OBJECTIVE: Afebrile. Temperature 98.3. Pulse 60. Blood pressure 148/80. Saturating 98% on room air. Intake: 2100. Urine output: 2175. Weight on the bed scale 78.3 kg. PHYSICAL EXAMINATION: GENERAL: The patient is awake, alert and oriented times three. He is dressed and ambulating in his room in no distress. HEAD AND NECK: Extraocular muscles intact. Pupils equally round and reactive to light. Moist mucous membranes. Neck is supple. No jugular venous distention. CARDIOVASCULAR: S1, S2, regular rate. No murmur, rub or gallop. No edema of the lower extremities. RESPIRATORY: Chest is clear to auscultation bilaterally. No rales or rhonchi. ABDOMEN: Soft. Positive bowel sounds. Nontender. The patient has a left lower quadrant renal allograft with no tenderness to palpation. MUSCULOSKELETAL: No peripheral edema. 2+ radial pulse. SKIN: No rash or ulcer. PSYCHIATRIC: Appropriate mood and affect. NEUROLOGIC: No focal deficits. LABS: Sodium 143, potassium 4.1, bicarbonate 24, creatinine 1.5, calcium corrected 8.7, phosphorus 2.8, magnesium 1.7. White count 4.2, hemoglobin 11.8 and platelets 114. Tacrolimus level drawn on 03/07/2017 came back as 8.2. Blood cultures remain without any growth. Urine culture no growth. CMB PCR and EBV PCR are both pending. INPATIENT MEDICATIONS: Reviewed by myself and no change in the past 24 hours. The patient does continue on his home immunosuppressant regimen. Prograf 0.5 mg twice a day, prednisone 5 mg daily and Myfortic 180 mg by mouth twice a day. He remains on azithromycin 500 mg by mouth daily and ceftriaxone 1 gram IV every 24 hours. ASSESSMENT AND PLAN: 1. Fever with chills and rigors. The patient's mendoza cultures including GI panel , respiratory panel, blood cultures, urine culture all returned negative. He did improve with empiric treatment with IV Rocephin and azithromycin. His chest x-ray did not reveal any definite infiltrate. His CMV and EBV PCR are pending and will be followed up outpatient. 2. Renal allograft. The patient's renal function is back to his known baseline. He continues on his home regimen of immunosuppression. His Tacrolimus level from 03/07/2017 came back as 8.2. 3. Acute kidney injury (AZUCENA) on chronic kidney disease (CKD). AZUCENA was secondary to volume depletion, dehydration, decreased oral intake. His creatinine has now returned to baseline and he has been off IV fluids and tolerating by mouth intake well. 4. Electrolyte disturbance. The patient's calcium, magnesium, phosphorus, and potassium have all stabilized. DISCHARGE PLANNING: The patient is stable for discharge today. He will followup in the nephrology clinic within one week and we will follow his CMV and EBV results as an outpatient. Plan of care discussed with Dr. Montes De Oca. ROQUE
== END 2017-03-10 11:49 | disposition home or self-care (01) | DRG 194 ==
LOC: M ED 12:29 → M ED INP 17:19 → M MSPAV 20:05
PROVIDERS: ADMIT Hospitalist; ATTEND Internal Medicine
DX: J18.9 Pneumonia, unspecified organism (principal); N17.9 Acute kidney failure, unspecified; Z94.0 Kidney transplant status; I12.0 Hypertensive chronic kidney disease with stage 5 chronic kidney disease or end stage renal disease; N25.81 Secondary hyperparathyroidism of renal origin; R50.9 Fever, unspecified; E87.6 Hypokalemia; E83.42 Hypomagnesemia; F41.9 Anxiety disorder, unspecified; K21.9 Gastro-esophageal reflux disease without esophagitis; E83.51 Hypocalcemia; Z79.899 Other long term (current) drug therapy; Z79.82 Long term (current) use of aspirin; Z88.5 Allergy status to narcotic agent; Z88.8 Allergy status to other drugs, medicaments and biological substances; Z88.1 Allergy status to other antibiotic agents; Z96.642 Presence of left artificial hip joint; Z96.612 Presence of left artificial shoulder joint; D69.6 Thrombocytopenia, unspecified; E86.0 Dehydration; E83.39 Other disorders of phosphorus metabolism

== ENCOUNTER → 2017-03-13 | Outpatient (REF) | payer MEDICARE, BC ==
[~2017-03-13] MED LIST changes: +AUGM875T28 PO; +AZIT500T2 PO
== END ==
LOC: M LAB REF 13:04
PROVIDERS: ATTEND Internal Medicine Nephrology
DX: Z94.0 Kidney transplant status (principal)

== ENCOUNTER → 2017-05-22 | Outpatient (REF) | payer MEDICARE, BC | LOC: M LAB REF 12:44 | PROVIDERS: ATTEND Internal Medicine Nephrology | DX: Z48.22 Encounter for aftercare following kidney transplant (principal) ==

== ENCOUNTER → 2017-08-22 | Outpatient (REF) | payer MEDICARE, BC ==
[2017-08-25 00:06] LABS: FK 506 (TACROLIMUS) LABCORP 6.6 ng/mL (2.0-20.0)
== END ==
LOC: M LAB REF 13:40
DX: Z48.22 Encounter for aftercare following kidney transplant (principal)
CPT/HCPCS: 80197

== ENCOUNTER 2017-09-21 11:54 | Inpatient (IN) | payer MEDICARE, BC ==
[2017-09-21] MEDS: NS 1,000 ML IV ×3 (13:37→16:19)
[2017-09-21] MEDS: ONDANSETRON 4MG/2ML VIAL (J2405) IV ×2 (13:37→20:19)
[2017-09-21 13:46] LABS: HEMATOCRIT 44.5 % (42.0-52.0); HEMOGLOBIN 14.6 g/dl (14.0-18.0); MEAN CORPUSCULAR HEMOGLOBIN 27.4 pg (27.0-33.0); MEAN CORPUSCULAR HGB CONC 32.8 g/dl (32.0-36.5); MEAN CORPUSCULAR VOLUME 83.6 fl (80.0-96.0); PLATELET COUNT, AUTOMATED 121 10^3/uL (150-450); RED BLOOD COUNT 5.32 10^6/uL (4.30-6.10); RED CELL DISTRIBUTION WIDTH 14.5 % (11.5-14.5)
[2017-09-21 13:48] LABS: ADD MANUAL DIFFER YES; DIFF SLIDE NUMBER 128; POSITIVE MORPH POS FLAG
[2017-09-21 14:09] LABS: ALBUMIN 3.6 GM/DL (3.2-5.2); ALBUMIN/GLOBULIN RATIO 1.29 (1.00-1.93); ALKALINE PHOSPHATASE 73 U/L (45-117); ALT/SGPT 14 U/L (12-78); ANION GAP 12 MEQ/L (8-16); AST/SGOT 12 U/L (7-37); BILIRUBIN,DIRECT 0.2 MG/DL (0.0-0.2); BILIRUBIN,TOTAL 1.1 MG/DL (0.2-1.0); BLOOD UREA NITROGEN 29 MG/DL (7-18); CALCIUM LEVEL 8.1 MG/DL (8.8-10.2); CARBON DIOXIDE LEVEL 22 MEQ/L (21-32); CHLORIDE LEVEL 106 MEQ/L (98-107); CREATININE FOR GFR 2.29 MG/DL (0.70-1.30); GLUCOSE, FASTING 105 MG/DL (70-100); LIPASE 83 U/L (73-393); POTASSIUM SERUM 4.1 MEQ/L (3.5-5.1); SODIUM LEVEL 140 MEQ/L (136-145); TOTAL PROTEIN 6.4 GM/DL (6.4-8.2)
[2017-09-21 14:21] LABS: ATYPICAL LYMPH 3 % (0-5); BANDS 6 % (< 11); EOSINOPHILS 1 % (0-5); LYMPHOCYTES 10 % (16-52); MONOCYTES 10 % (0-8); NEUTROPHILS 70 % (35-75); PLATELET ESTIMATE DECREASED (NORMAL)
[2017-09-21 15:58] LABS: KETONE, URINE AUTO RFX NEGATIVE (NEGATIVE); LEUKOCYTE ESTERASE UR AUTO RFX NEGATIVE (NEGATIVE); MUCUS, URINE RFX SMALL (NEGATIVE); NITRITE, URINE AUTO RFX NEGATIVE (NEGATIVE); RBC, URINE AUTO RFX 3 /HPF (0-3); SPECIFIC GRAVITY UR AUTO RFX 1.018 (1.002-1.035); SQUAM EPITHELIAL CELL UR AURFX 0 /HPF (0-6); WBC, URINE AUTO RFX 2 /HPF (0-3)
[2017-09-21 16:42] LABS: INFLUENZA A AMPLIFICATION NEGATIVE (NEGATIVE); INFLUENZA B AMPLIFICATION NEGATIVE (NEGATIVE)
[2017-09-21] MEDS: ACETAMINOPHEN TAB 650MG DOSE (2X325MG) PO (17:58)
[2017-09-21] MEDS: TACROLIMUS 0.5 MG CAP PO (21:18)
[2017-09-21] MEDS: MYCOPHENOLIC 180 MG PO (21:18)
[2017-09-21] MEDS: HEPARIN SOD (PORCINE) 5000 UNITS/ML VIAL SC (21:19)
[2017-09-22] MEDS: SIMETHICONE 80 MG CHEW TAB PO ×2 (00:17→20:57)
[2017-09-22] MEDS: LOPERAMIDE 2 MG CAP PO ×2 (00:17→01:25)
[2017-09-22] MEDS: METOCLOPRAMIDE INJ 10MG/2ML VIAL (J2765) IV (00:18)
[2017-09-22] MEDS: NS 1,000 ML IV ×3 (01:25→17:19)
[2017-09-22] MEDS: ONDANSETRON 4MG/2ML VIAL (J2405) IV (05:02)
[2017-09-22 05:10] LABS: HEMATOCRIT 38.6 % (42.0-52.0); MEAN CORPUSCULAR HEMOGLOBIN 27.4 pg (27.0-33.0); MEAN CORPUSCULAR HGB CONC 32.1 g/dl (32.0-36.5); MEAN CORPUSCULAR VOLUME 85.2 fl (80.0-96.0); RED BLOOD COUNT 4.53 10^6/uL (4.30-6.10); RED CELL DISTRIBUTION WIDTH 14.8 % (11.5-14.5); WHITE BLOOD COUNT 5.5 10^3/uL (4.0-10.0)
[2017-09-22 05:28] LABS: ALBUMIN 2.9 GM/DL (3.2-5.2); ANION GAP 9 MEQ/L (8-16); BLOOD UREA NITROGEN 31 MG/DL (7-18); CALCIUM LEVEL 7.6 MG/DL (8.8-10.2); CARBON DIOXIDE LEVEL 24 MEQ/L (21-32); CHLORIDE LEVEL 109 MEQ/L (98-107); CREATININE FOR GFR 2.57 MG/DL (0.70-1.30); GLOMERULAR FILTRATION RATE 27.1 (>49); GLUCOSE, FASTING 83 MG/DL (70-100); PHOSPHORUS LEVEL 2.3 MG/DL (2.5-4.9); POTASSIUM SERUM 4.1 MEQ/L (3.5-5.1); SODIUM LEVEL 142 MEQ/L (136-145)
[2017-09-22 05:29] LABS: PLATELET COUNT, AUTOMATED 95 10^3/uL (150-450)
[2017-09-22 05:30] LABS: HEMOGLOBIN 12.4 g/dl (14.0-18.0); IMMATURE PLATELET FRACTION % 1.4 % (0.0-10.9)
[2017-09-22] MEDS: MYCOPHENOLIC 180 MG PO (08:15)
[2017-09-22] MEDS: TACROLIMUS 0.5 MG CAP PO ×2 (08:15→20:54)
[2017-09-22] MEDS: ASPIRIN 81 MG ENTERIC TAB PO (08:16)
[2017-09-22] MEDS: predniSONE 5 MG TAB PO (08:16)
[2017-09-22] MEDS: OMEPRAZOLE 20 MG CAP PO (08:16)
[2017-09-22] MEDS: ACETAMINOPHEN TAB 650MG DOSE (2X325MG) PO (08:17)
[2017-09-22] MEDS: HEPARIN SOD (PORCINE) 5000 UNITS/ML VIAL SC ×2 (08:17→20:57)
[2017-09-22 13:21] LABS: MAGNESIUM LEVEL 1.7 MG/DL (1.8-2.4)
[2017-09-22] MEDS: CALCITRIOL 0.25 MCG CAP (S0169) PO (14:26)
[2017-09-22] MEDS: MAG SULF 1GM/100ML (MAG RUN) 1 GM in APPROPRIATE DILUENT 1 EA IV (20:58)
[2017-09-23] MEDS: NS 1,000 ML IV ×2 (00:47→08:48)
[2017-09-23 05:07] LABS: HEMATOCRIT 35.7 % (42.0-52.0); HEMOGLOBIN 11.4 g/dl (14.0-18.0); MEAN CORPUSCULAR HEMOGLOBIN 27.2 pg (27.0-33.0); MEAN CORPUSCULAR HGB CONC 31.9 g/dl (32.0-36.5); MEAN CORPUSCULAR VOLUME 85.2 fl (80.0-96.0); RED BLOOD COUNT 4.19 10^6/uL (4.30-6.10); RED CELL DISTRIBUTION WIDTH 14.5 % (11.5-14.5); WHITE BLOOD COUNT 4.6 10^3/uL (4.0-10.0)
[2017-09-23 05:20] LABS: ALBUMIN 2.6 GM/DL (3.2-5.2); ANION GAP 7 MEQ/L (8-16); BLOOD UREA NITROGEN 19 MG/DL (7-18); CARBON DIOXIDE LEVEL 22 MEQ/L (21-32); CHLORIDE LEVEL 111 MEQ/L (98-107); CREATININE FOR GFR 1.78 MG/DL (0.70-1.30); GLOMERULAR FILTRATION RATE 41.4 (>49); GLUCOSE, FASTING 83 MG/DL (70-100); MAGNESIUM LEVEL 1.8 MG/DL (1.8-2.4); PHOSPHORUS LEVEL 1.9 MG/DL (2.5-4.9); POTASSIUM SERUM 3.7 MEQ/L (3.5-5.1); SODIUM LEVEL 140 MEQ/L (136-145)
[2017-09-23 05:29] LABS: PLATELET COUNT, AUTOMATED 81 10^3/uL (150-450)
[2017-09-23 05:32] LABS: ERYTHROCYTE SEDIMENTATION RATE 9 mm/hr (0-20)
[2017-09-23] MEDS: CALCITRIOL 0.25 MCG CAP (S0169) PO (08:48)
[2017-09-23] MEDS: predniSONE 5 MG TAB PO (08:49)
[2017-09-23] MEDS: ASPIRIN 81 MG ENTERIC TAB PO (08:49)
[2017-09-23] MEDS: TACROLIMUS 0.5 MG CAP PO ×2 (08:49→22:26)
[2017-09-23] MEDS: OMEPRAZOLE 20 MG CAP PO (08:49)
[2017-09-23] MEDS: NS 0.45% 1,000 ML IV ×2 (08:54→18:05)
[2017-09-23] MEDS: HEPARIN SOD (PORCINE) 5000 UNITS/ML VIAL SC ×3 (09:00→22:28)
[2017-09-23] MEDS: K-PHOS NEUTRAL 250MG TABLET (SOD.PHOSPHATE/POT.PHOSPHATE) PO ×2 (09:56→22:26)
[2017-09-23] MEDS: amLODIPine 5 MG TAB PO (13:47)
[2017-09-23] MEDS: CARVedilol 12.5 MG TAB PO (22:30)
[2017-09-24 07:08] LABS: HEMOGLOBIN 11.9 g/dl (14.0-18.0); MEAN CORPUSCULAR HEMOGLOBIN 27.7 pg (27.0-33.0); MEAN CORPUSCULAR HGB CONC 33.1 g/dl (32.0-36.5); MEAN CORPUSCULAR VOLUME 83.7 fl (80.0-96.0); RED CELL DISTRIBUTION WIDTH 14.1 % (11.5-14.5); WHITE BLOOD COUNT 4.5 10^3/uL (4.0-10.0)
[2017-09-24 07:10] LABS: PLATELET COUNT, AUTOMATED 91 10^3/uL (150-450)
[2017-09-24 07:11] LABS: IMMATURE PLATELET FRACTION % 2.1 % (0.0-10.9)
[2017-09-24 07:30] LABS: ALBUMIN 2.9 GM/DL (3.2-5.2); ANION GAP 10 MEQ/L (8-16); BLOOD UREA NITROGEN 15 MG/DL (7-18); CALCIUM LEVEL 8.3 MG/DL (8.8-10.2); CARBON DIOXIDE LEVEL 24 MEQ/L (21-32); CHLORIDE LEVEL 107 MEQ/L (98-107); GLOMERULAR FILTRATION RATE 46.9 (>49); GLUCOSE, FASTING 81 MG/DL (70-100); PHOSPHORUS LEVEL 2.6 MG/DL (2.5-4.9); POTASSIUM SERUM 3.2 MEQ/L (3.5-5.1); SODIUM LEVEL 141 MEQ/L (136-145)
[2017-09-24] MEDS: HEPARIN SOD (PORCINE) 5000 UNITS/ML VIAL SC (07:44)
[2017-09-24] MEDS: POTASSIUM CHLORIDE 10 MEQ SR TABLET PO (08:32)
[2017-09-24] MEDS: CARVedilol 12.5 MG TAB PO (08:33)
[2017-09-24] MEDS: ASPIRIN 81 MG ENTERIC TAB PO (08:34)
[2017-09-24] MEDS: K-PHOS NEUTRAL 250MG TABLET (SOD.PHOSPHATE/POT.PHOSPHATE) PO (08:34)
[2017-09-24] MEDS: predniSONE 5 MG TAB PO (08:34)
[2017-09-24] MEDS: amLODIPine 5 MG TAB PO (08:34)
[2017-09-24] MEDS: OMEPRAZOLE 20 MG CAP PO (08:36)
[2017-09-24] MEDS: CALCITRIOL 0.25 MCG CAP (S0169) PO (08:36)
[2017-09-24] MEDS: TACROLIMUS 0.5 MG CAP PO (08:36)
== END 2017-09-24 17:30 | disposition home or self-care (01) | DRG 683 ==
LOC: M MS5PR 09-24 01:17 → M ED 11:54 → M ED INP 16:19 → M PCU 17:25
DX: N17.9 Acute kidney failure, unspecified (principal); Z94.0 Kidney transplant status; N25.81 Secondary hyperparathyroidism of renal origin; N18.3 Chronic kidney disease, stage 3 (moderate); I12.9 Hypertensive chronic kidney disease with stage 1 through stage 4 chronic kidney disease, or unspecified chronic kidney disease; K52.9 Noninfective gastroenteritis and colitis, unspecified; D86.9 Sarcoidosis, unspecified; E86.0 Dehydration; Z79.899 Other long term (current) drug therapy; Z79.82 Long term (current) use of aspirin; Z88.5 Allergy status to narcotic agent; Z88.1 Allergy status to other antibiotic agents; K21.9 Gastro-esophageal reflux disease without esophagitis; F41.9 Anxiety disorder, unspecified; E87.6 Hypokalemia; E83.42 Hypomagnesemia

== ENCOUNTER → 2017-10-09 | Outpatient (REF) | payer MEDICARE, BC | LOC: M LAB REF 12:25 | DX: C44.329 Squamous cell carcinoma of skin of other parts of face (principal) | CPT/HCPCS: 88305 ==

== ENCOUNTER 2017-10-29 05:10 | Emergency (ER) | payer MEDICARE, BC ==
[2017-10-29] MEDS ORDERED: TENECTEPLASE 50 MG KIT (TNKase)(J3101) (05:11)
[2017-10-29] MEDS ORDERED: HEPARIN SOD (PORCINE) 5000 UNITS/ML VIAL (05:11)
[2017-10-29] MEDS ORDERED: HEPARIN 25,000 UNITS/250 ML D5W BAG (100 UNITS/ML) (05:11)
[2017-10-29] MEDS ORDERED: ASPIRIN 81 MG CHEW TABLET (05:11)
[2017-10-29] MEDS ORDERED: ASPIRIN 81 MG CHEW TABLET As Ordered (05:19)
[2017-10-29] MEDS ORDERED: METOPROLOL 5 MG/5 ML VIAL As Ordered (05:22)
[2017-10-29] MEDS: HEPARIN DRIP 25,000 UNITS in APPROPRIATE DILUENT 1 EA IV (05:28)
[2017-10-29] MEDS: HEPARIN SOD (PORCINE) 5000 UNITS/ML VIAL IV (05:30)
[2017-10-29] MEDS: ASPIRIN 325 MG TAB PO (05:30)
[2017-10-29] MEDS: METOPROLOL 5 MG/5 ML VIAL IV (05:30)
[2017-10-29] MEDS: ASPIRIN 81 MG CHEW TABLET PO (05:30)
[2017-10-29] MEDS: NITROGLYCERIN/D5W 100MCG/ML 25 MG in APPROPRIATE DILUENT 1 EA IV (05:33)
[2017-10-29 05:40] LABS: BASO % 0.2 % (0.0-1.0); EOS # 0.1 10^3/uL (0.0-0.50); EOS % 1.1 % (0.0-3.0); HEMATOCRIT 41.7 % (42.0-52.0); HEMOGLOBIN 13.8 g/dl (13.5-17.5); IMMATURE GRANULOCYTE % 0.6 % (0-3.0); LYMPH # 1.9 10^3/uL (1.5-4.5); LYMPH % 19.8 % (24.0-44.0); MEAN CORPUSCULAR HEMOGLOBIN 27.7 pg (27.0-33.0); MEAN CORPUSCULAR HGB CONC 33.1 g/dl (32.0-36.5); MEAN CORPUSCULAR VOLUME 83.7 fl (80.0-96.0); MONO # 0.8 10^3/uL (0.0-0.8); MONO % 7.9 % (0.0-5.0); NEUTROPHILS # 6.9 10^3/uL (1.8-7.7); NEUTROPHILS % 70.4 % (36.0-66.0); PLATELET COUNT, AUTOMATED 148 10^3/uL (150-450); RED BLOOD COUNT 4.98 10^6/uL (4.30-6.10); RED CELL DISTRIBUTION WIDTH 14.8 % (11.5-14.5); WHITE BLOOD COUNT 9.8 10^3/uL (4.0-10.0)
[2017-10-29] MEDS: TENECTEPLASE 50 MG KIT (TNKase)(J3101) IV (05:42)
[2017-10-29 05:44] LABS: INR 1.12; PROTHROMBIN TIME 14.6 SECONDS (12.4-14.5)
[2017-10-29 05:45] LABS: PARTIAL THROMBOPLASTIN TIME 33.8 SECONDS (26.8-37.9)
[2017-10-29 05:53] LABS: ANION GAP 9 MEQ/L (8-16); BLOOD UREA NITROGEN 30 MG/DL (7-18); CALCIUM LEVEL 9.3 MG/DL (8.8-10.2); CARBON DIOXIDE LEVEL 25 MEQ/L (21-32); CHLORIDE LEVEL 106 MEQ/L (98-107); CPK CREATINE PHOSPHOKINASE 53 U/L (39-308); GLOMERULAR FILTRATION RATE 40.9 (>49); GLUCOSE, FASTING 121 MG/DL (70-100); MB/CK RELATIVE INDEX 3.77 (< OR =4); POTASSIUM SERUM 4.1 MEQ/L (3.5-5.1); SODIUM LEVEL 140 MEQ/L (136-145); TROPONIN I 0.59 NG/ML (< 0.10)
[2017-10-29] MEDS: CLOPIDOGREL 75 MG TAB PO (05:57)
[2017-10-29] MEDS: MORPHINE 2 MG/ML 1ML SYRINGE (J2270) IV (05:57)
== END 2017-10-29 06:59 | disposition short-term general hospital (02) ==
LOC: M ED 05:10
DX: I21.3 ST elevation (STEMI) myocardial infarction of unspecified site (principal); I10 Essential (primary) hypertension; D64.9 Anemia, unspecified; G43.909 Migraine, unspecified, not intractable, without status migrainosus; Z94.0 Kidney transplant status; I51.7 Cardiomegaly; Z79.82 Long term (current) use of aspirin; Z79.899 Other long term (current) drug therapy; Z88.5 Allergy status to narcotic agent; Z88.8 Allergy status to other drugs, medicaments and biological substances
CPT/HCPCS: J3101

== ENCOUNTER 2017-11-26 12:27 | Outpatient (RCR) | payer MEDICARE, BC | END 2017-12-04 | LOC: M CR 12:27 | DX: Z51.89 Encounter for other specified aftercare (principal); Z98.61 Coronary angioplasty status; I21.3 ST elevation (STEMI) myocardial infarction of unspecified site | CPT/HCPCS: 93798 ==

== ENCOUNTER 2017-12-08 15:38 | Outpatient (RCR) | payer MEDICARE, BC | END 2018-01-03 | LOC: M CR 15:38 | DX: Z51.89 Encounter for other specified aftercare (principal); Z98.61 Coronary angioplasty status; I21.3 ST elevation (STEMI) myocardial infarction of unspecified site | CPT/HCPCS: 93798 ==

== ENCOUNTER 2018-04-19 11:54 | Inpatient (IN) | payer MEDICARE, BC ==
[2018-04-19] MEDS: NS 1,000 ML IV ×4 (12:15→23:15)
[2018-04-19 12:18] LABS: BASO % 0.2 % (0.0-1.0); EOS % 0.8 % (0.0-3.0); HEMATOCRIT 37.6 % (42.0-52.0); HEMOGLOBIN 11.8 g/dl (13.5-17.5); IMMATURE GRANULOCYTE % 0.4 % (0-3.0); LYMPH # 0.4 10^3/uL (1.5-4.5); LYMPH % 9.1 % (24.0-44.0); MEAN CORPUSCULAR HEMOGLOBIN 27.8 pg (27.0-33.0); MEAN CORPUSCULAR HGB CONC 31.4 g/dl (32.0-36.5); MEAN CORPUSCULAR VOLUME 88.7 fl (80.0-96.0); MONO # 0.1 10^3/uL (0.0-0.8); MONO % 1.5 % (0.0-5.0); NEUTROPHILS # 4.1 10^3/uL (1.8-7.7); RED BLOOD COUNT 4.24 10^6/uL (4.30-6.10); RED CELL DISTRIBUTION WIDTH 14.8 % (11.5-14.5); WHITE BLOOD COUNT 4.7 10^3/uL (4.0-10.0)
[2018-04-19 12:26] LABS: PROTHROMBIN TIME 15.4 SECONDS (12.1-14.4)
[2018-04-19 12:27] LABS: PARTIAL THROMBOPLASTIN TIME 23.4 SECONDS (25.4-37.6)
[2018-04-19 12:38] LABS: ALBUMIN 3.1 GM/DL (3.2-5.2); ALBUMIN/GLOBULIN RATIO 1.03 (1.00-1.93); ALKALINE PHOSPHATASE 234 U/L (45-117); ALT/SGPT 436 U/L (12-78); ANION GAP 9 MEQ/L (8-16); AST/SGOT 972 U/L (7-37); BILIRUBIN,DIRECT 0.9 MG/DL (0.0-0.2); BILIRUBIN,TOTAL 1.5 MG/DL (0.2-1.0); BLOOD UREA NITROGEN 26 MG/DL (7-18); CALCIUM LEVEL 8.4 MG/DL (8.8-10.2); CARBON DIOXIDE LEVEL 26 MEQ/L (21-32); CHLORIDE LEVEL 106 MEQ/L (98-107); CK-MB VALUE MASS < 1.0 NG/ML (<3.6); CPK CREATINE PHOSPHOKINASE 101 U/L (39-308); CREATININE FOR GFR 2.01 MG/DL (0.70-1.30); GLOMERULAR FILTRATION RATE 35.9 (>49); GLUCOSE, FASTING 87 MG/DL (70-100); LIPASE 199 U/L (73-393); MB/CK RELATIVE INDEX 0.99 (< OR =4); POTASSIUM SERUM 4.1 MEQ/L (3.5-5.1); SODIUM LEVEL 141 MEQ/L (136-145); TOTAL PROTEIN 6.1 GM/DL (6.4-8.2); TROPONIN I 0.02 NG/ML (< 0.10)
[2018-04-19] MEDS ORDERED: ONDANSETRON 4MG/2ML VIAL (J2405) As Ordered (12:42)
[2018-04-19] MEDS: ONDANSETRON 4MG/2ML VIAL (J2405) IV ×2 (12:48→18:29)
[2018-04-19 12:55] LABS: PLATELET COUNT, AUTOMATED 96 10^3/uL (150-450)
[2018-04-19 12:56] LABS: IMMATURE PLATELET FRACTION % 2.5 % (0.0-10.9); PLATELET F 96
[2018-04-19] MEDS: fentaNYL 100 MCG/2 ML INJECTION (J3010) IV ×2 (13:00→21:12)
[2018-04-19 13:01] LABS: KETONE, URINE AUTO RFX NEGATIVE (NEGATIVE); LEUKOCYTE ESTERASE UR AUTO RFX NEGATIVE (NEGATIVE); MUCUS, URINE RFX SMALL (NEGATIVE); NITRITE, URINE AUTO RFX NEGATIVE (NEGATIVE); RBC, URINE AUTO RFX 3 /HPF (0-3); SPECIFIC GRAVITY UR AUTO RFX 1.017 (1.002-1.035); SQUAM EPITHELIAL CELL UR AURFX 0 /HPF (0-6); WBC, URINE AUTO RFX 4 /HPF (0-3)
[2018-04-19 13:02] LABS: LACTIC ACID SEPSIS PROTOCOL 2.8 MMOL/L (0.4-2.0)
[2018-04-19] MEDS ORDERED: HEPARIN SOD (PORCINE) 5000 UNITS/ML VIAL SC (14:00)
[2018-04-19] MEDS ORDERED: ONDANSETRON 4 MG TAB (S0181) PO (14:00)
[2018-04-19 14:58] LABS: ACETAMINOPHEN LEVEL 2.2 UG/ML (10.0-30.0); C REACTIVE PROTEIN QUANTITATIV 0.96 MG/DL (0.00-0.30)
[2018-04-19 16:02] LABS: MAGNESIUM LEVEL 1.7 MG/DL (1.8-2.4); PHOSPHORUS LEVEL 2.6 MG/DL (2.5-4.9)
[2018-04-19 16:50] LABS: ERYTHROCYTE SEDIMENTATION RATE 5 mm/hr (0-20)
[2018-04-19] MEDS: MEROPENEM INJ 1 GM in APPROPRIATE DILUENT 1 EA IV (17:18)
[2018-04-19 18:19] LABS: BEDSIDE GLUCOSE 93 MG/DL (80-115)
[2018-04-19] MEDS: VANCOMYCIN HCL 1,000 MG, VIAL MATE ADAPTER 1 EACH in D5W 250 ML IV (18:29)
[2018-04-19] MEDS: ALLOPURINOL 100 MG TAB PO (21:09)
[2018-04-19] MEDS: TACROLIMUS 0.5 MG CAP PO (21:09)
[2018-04-19] MEDS: MAGNESIUM OXIDE 400 MG TAB (MAG-OX) PO (21:09)
[2018-04-19] MEDS ORDERED: PILL CRUSHER/CUTTER 1 EACH XX (21:15)
[2018-04-19] MEDS: ALPRAZolam 0.25 MG TAB PO (21:41)
[2018-04-20] MEDS: HYDROMORPHONE HCL 0.5 MG/ 0.5 ML SYRINGE (J1170 PER 1) IV (00:41)
[2018-04-20] MEDS: MEROPENEM INJ 1 GM in APPROPRIATE DILUENT 1 EA IV ×2 (05:10→17:39)
[2018-04-20] MEDS: NS 1,000 ML IV (05:10)
[2018-04-20 06:49] LABS: BASO % 0.1 % (0.0-1.0); EOS % 0.4 % (0.0-3.0); HEMATOCRIT 36.3 % (42.0-52.0); HEMOGLOBIN 11.4 g/dl (13.5-17.5); IMMATURE GRANULOCYTE % 0.4 % (0-3.0); LYMPH # 0.8 10^3/uL (1.5-4.5); LYMPH % 8.4 % (24.0-44.0); MEAN CORPUSCULAR HEMOGLOBIN 27.7 pg (27.0-33.0); MEAN CORPUSCULAR HGB CONC 31.4 g/dl (32.0-36.5); MEAN CORPUSCULAR VOLUME 88.3 fl (80.0-96.0); MONO # 0.7 10^3/uL (0.0-0.8); MONO % 6.9 % (0.0-5.0); NEUTROPHILS # 8.2 10^3/uL (1.8-7.7); NEUTROPHILS % 83.8 % (36.0-66.0); RED BLOOD COUNT 4.11 10^6/uL (4.30-6.10); RED CELL DISTRIBUTION WIDTH 15.7 % (11.5-14.5); WHITE BLOOD COUNT 9.8 10^3/uL (4.0-10.0)
[2018-04-20 06:52] LABS: PLATELET COUNT, AUTOMATED 73 10^3/uL (150-450)
[2018-04-20 07:04] LABS: PROTHROMBIN TIME 19.3 SECONDS (12.1-14.4)
[2018-04-20 07:24] LABS: ALBUMIN 2.4 GM/DL (3.2-5.2); ALBUMIN/GLOBULIN RATIO 0.96 (1.00-1.93); ALKALINE PHOSPHATASE 220 U/L (45-117); ALT/SGPT 790 U/L (12-78); ANION GAP 7 MEQ/L (8-16); AST/SGOT 882 U/L (7-37); BILIRUBIN,TOTAL 4.8 MG/DL (0.2-1.0); BLOOD UREA NITROGEN 33 MG/DL (7-18); CALCIUM LEVEL 7.1 MG/DL (8.8-10.2); CARBON DIOXIDE LEVEL 22 MEQ/L (21-32); CHLORIDE LEVEL 109 MEQ/L (98-107); CREATININE FOR GFR 2.56 MG/DL (0.70-1.30); GLOMERULAR FILTRATION RATE 27.2 (>49); GLUCOSE, FASTING 68 MG/DL (70-100); MAGNESIUM LEVEL 1.5 MG/DL (1.8-2.4); POTASSIUM SERUM 5.4 MEQ/L (3.5-5.1); SODIUM LEVEL 138 MEQ/L (136-145); TOTAL PROTEIN 4.9 GM/DL (6.4-8.2)
[2018-04-20] MEDS: predniSONE 5 MG TAB PO (08:54)
[2018-04-20] MEDS: CALCITRIOL 0.25 MCG CAP (S0169) PO (08:54)
[2018-04-20] MEDS: ALPRAZolam 0.25 MG TAB PO ×2 (08:55→21:12)
[2018-04-20] MEDS: VITAMIN D 1,000 INTERNATIONAL UNITS TABLET PO (08:55)
[2018-04-20] MEDS: TACROLIMUS 0.5 MG CAP PO ×2 (08:56→21:12)
[2018-04-20] MEDS: CLOPIDOGREL 75 MG TAB PO (08:56)
[2018-04-20] MEDS: OMEPRAZOLE 20 MG CAP PO (08:56)
[2018-04-20] MEDS: MAGNESIUM OXIDE 400 MG TAB (MAG-OX) PO ×2 (08:56→21:12)
[2018-04-20] MEDS: VANCOMYCIN HCL 1,000 MG, VIAL MATE ADAPTER 1 EACH in D5W 250 ML IV (08:56)
[2018-04-20] MEDS: ASPIRIN 81 MG ENTERIC TAB PO (08:56)
[2018-04-20] MEDS ORDERED: K-PHOS ORIGINAL (POT.ACID PHOSPHATE) 500MG TAB PO (09:00)
[2018-04-20 10:03] LABS: BILIRUBIN,DIRECT 3.7 MG/DL (0.0-0.2)
[2018-04-20] MEDS: SODIUM BICARBONATE 50 MEQ in D5W/0.45% SODIUM CHLORIDE 1,000 ML IV ×2 (10:42→21:13)
[2018-04-20 10:59] LABS: HEPATITIS C VIRUS ABY INDEX < 0.0 INDEX (<0.8)
[2018-04-20 10:59] LABS: HEPATITIS A ANTIBODY IGM NEGATIVE (NEGATIVE); HEPATITIS B CORE ANTIBODY IGM NEGATIVE (NEGATIVE); HEPATITIS B SURFACE ANTIBODY NEGATIVE (POSITIVE); HEPATITIS B SURFACE ANTIGEN NEGATIVE (NEGATIVE)
[2018-04-20 12:26] LABS: VANCOMYCIN RANDOM 8.5 UG/ML
[2018-04-20] MEDS: PATIROMER SORBITEX CALCIUM 8.4 GM POWDER PACKET (VELTASSA) PO ×2 (12:42→15:31)
[2018-04-20] MEDS: FLUBLOK(EGG FREE)(QUAD)INFLUENZA VACC 0.5ML SYRINGE (90682)18YRS&OLDER IM (13:25)
[2018-04-20] MEDS: fentaNYL 100 MCG/2 ML INJECTION (J3010) IV (17:39)
[2018-04-20 18:17] LABS: LIPASE 47 U/L (73-393)
[2018-04-20 18:25] LABS: ANION GAP 8 MEQ/L (8-16); BLOOD UREA NITROGEN 31 MG/DL (7-18); CALCIUM LEVEL 7.5 MG/DL (8.8-10.2); CARBON DIOXIDE LEVEL 20 MEQ/L (21-32); CHLORIDE LEVEL 108 MEQ/L (98-107); CREATININE FOR GFR 2.42 MG/DL (0.70-1.30); GLUCOSE, FASTING 94 MG/DL (70-100); POTASSIUM SERUM 4.2 MEQ/L (3.5-5.1); SODIUM LEVEL 136 MEQ/L (136-145)
[2018-04-20 19:23] LABS: GAMMA GLUTAMYLTRANSPEPTIDASE 484 U/L (15-85)
[2018-04-20] MEDS: ALLOPURINOL 100 MG TAB PO (21:12)
[2018-04-20] MEDS: PROMETHAZINE INJ 25 MG/ML VIAL (J2550) IV (22:51)
[2018-04-21] MEDS: fentaNYL 100 MCG/2 ML INJECTION (J3010) IV ×2 (04:14→12:30)
[2018-04-21] MEDS: MEROPENEM INJ 1 GM in APPROPRIATE DILUENT 1 EA IV ×2 (05:27→16:32)
[2018-04-21 07:05] LABS: BASO % 0.1 % (0.0-1.0); EOS # 0.1 10^3/uL (0.0-0.50); HEMATOCRIT 34.6 % (42.0-52.0); HEMOGLOBIN 11.2 g/dl (13.5-17.5); IMMATURE GRANULOCYTE % 1.1 % (0-3.0); LYMPH # 0.6 10^3/uL (1.5-4.5); LYMPH % 6.9 % (24.0-44.0); MEAN CORPUSCULAR HEMOGLOBIN 27.7 pg (27.0-33.0); MEAN CORPUSCULAR HGB CONC 32.4 g/dl (32.0-36.5); MEAN CORPUSCULAR VOLUME 85.4 fl (80.0-96.0); MONO # 0.5 10^3/uL (0.0-0.8); MONO % 5.4 % (0.0-5.0); NEUTROPHILS # 7.2 10^3/uL (1.8-7.7); NEUTROPHILS % 85.5 % (36.0-66.0); RED BLOOD COUNT 4.05 10^6/uL (4.30-6.10); RED CELL DISTRIBUTION WIDTH 15.4 % (11.5-14.5); WHITE BLOOD COUNT 8.4 10^3/uL (4.0-10.0)
[2018-04-21 07:10] LABS: PLATELET COUNT, AUTOMATED 78 10^3/uL (150-450)
[2018-04-21 07:11] LABS: IMMATURE PLATELET FRACTION % 2.8 % (0.0-10.9)
[2018-04-21 07:21] LABS: INR 1.34; PROTHROMBIN TIME 16.8 SECONDS (12.1-14.4)
[2018-04-21 07:27] LABS: ALKALINE PHOSPHATASE 180 U/L (45-117); ALT/SGPT 473 U/L (12-78); ANION GAP 9 MEQ/L (8-16); AST/SGOT 337 U/L (7-37); BLOOD UREA NITROGEN 23 MG/DL (7-18); CALCIUM LEVEL 7.8 MG/DL (8.8-10.2); CARBON DIOXIDE LEVEL 21 MEQ/L (21-32); CHLORIDE LEVEL 108 MEQ/L (98-107); CREATININE FOR GFR 2.12 MG/DL (0.70-1.30); GLOMERULAR FILTRATION RATE 33.8 (>49); GLUCOSE, FASTING 100 MG/DL (70-100); POTASSIUM SERUM 3.6 MEQ/L (3.5-5.1); SODIUM LEVEL 138 MEQ/L (136-145)
[2018-04-21 07:28] LABS: ALBUMIN 2.4 GM/DL (3.2-5.2); ALBUMIN/GLOBULIN RATIO 0.92 (1.00-1.93); BILIRUBIN,TOTAL 3.7 MG/DL (0.2-1.0); MAGNESIUM LEVEL 1.6 MG/DL (1.8-2.4); VANCOMYCIN LEVEL TROUGH 12.1 UG/ML (10.0-20.0)
[2018-04-21] MEDS: ASPIRIN 81 MG ENTERIC TAB PO (08:26)
[2018-04-21] MEDS: predniSONE 5 MG TAB PO (08:26)
[2018-04-21] MEDS: CALCITRIOL 0.25 MCG CAP (S0169) PO (08:26)
[2018-04-21] MEDS: OMEPRAZOLE 20 MG CAP PO (08:26)
[2018-04-21] MEDS: VITAMIN D 1,000 INTERNATIONAL UNITS TABLET PO (08:27)
[2018-04-21] MEDS: CLOPIDOGREL 75 MG TAB PO (08:27)
[2018-04-21] MEDS: SODIUM BICARBONATE 50 MEQ in D5W/0.45% SODIUM CHLORIDE 1,000 ML IV (08:27)
[2018-04-21] MEDS: ALPRAZolam 0.25 MG TAB PO ×2 (08:27→21:09)
[2018-04-21] MEDS: TACROLIMUS 0.5 MG CAP PO ×2 (08:27→21:09)
[2018-04-21] MEDS: MAG SULF 1GM/100ML (MAG RUN) 1 GM in APPROPRIATE DILUENT 1 EA IV ×2 (08:27→11:48)
[2018-04-21] MEDS: MAGNESIUM OXIDE 400 MG TAB (MAG-OX) PO ×2 (08:27→21:09)
[2018-04-21] MEDS: VANCOMYCIN HCL 1,000 MG, VIAL MATE ADAPTER 1 EACH in D5W 250 ML IV (08:28)
[2018-04-21 10:00] LABS: CYTOMEGALOVIRUS IgM ANTIBODY 50.5 AU/mL (0.0-29.9)
[2018-04-21 10:00] LABS: CYTOMEGALOVIRUS IgG ANTIBODY >10.00 U/mL (0.00-0.59)
[2018-04-21] MEDS: ACETAMINOPHEN 325 MG TAB PO (11:48)
[2018-04-21] MEDS: ONDANSETRON 4MG/2ML VIAL (J2405) IV ×2 (12:55→16:54)
[2018-04-21] MEDS: ALLOPURINOL 100 MG TAB PO (21:09)
[2018-04-21] MEDS: NS 1,000 ML IV (21:53)
[2018-04-22 00:13] LABS: FK 506 (TACROLIMUS) LABCORP 4.9 ng/mL (2.0-20.0)
[2018-04-22] MEDS: MEROPENEM INJ 1 GM in APPROPRIATE DILUENT 1 EA IV ×2 (04:10→16:57)
[2018-04-22 05:57] LABS: BASO % 0.1 % (0.0-1.0); EOS # 0.1 10^3/uL (0.0-0.50); EOS % 0.9 % (0.0-3.0); HEMOGLOBIN 11.4 g/dl (13.5-17.5); LYMPH # 0.6 10^3/uL (1.5-4.5); LYMPH % 8.2 % (24.0-44.0); MEAN CORPUSCULAR HEMOGLOBIN 27.7 pg (27.0-33.0); MEAN CORPUSCULAR HGB CONC 32.6 g/dl (32.0-36.5); MEAN CORPUSCULAR VOLUME 85.2 fl (80.0-96.0); MONO # 0.4 10^3/uL (0.0-0.8); MONO % 6.1 % (0.0-5.0); NEUTROPHILS # 5.6 10^3/uL (1.8-7.7); NEUTROPHILS % 83.7 % (36.0-66.0); RED BLOOD COUNT 4.11 10^6/uL (4.30-6.10); RED CELL DISTRIBUTION WIDTH 15.6 % (11.5-14.5); WHITE BLOOD COUNT 6.7 10^3/uL (4.0-10.0)
[2018-04-22 06:14] LABS: INR 1.31; PROTHROMBIN TIME 16.5 SECONDS (12.1-14.4)
[2018-04-22 06:29] LABS: ALBUMIN 2.2 GM/DL (3.2-5.2); ALBUMIN/GLOBULIN RATIO 0.76 (1.00-1.93); ALKALINE PHOSPHATASE 182 U/L (45-117); ALT/SGPT 331 U/L (12-78); ANION GAP 8 MEQ/L (8-16); AST/SGOT 152 U/L (7-37); BILIRUBIN,TOTAL 3.4 MG/DL (0.2-1.0); BLOOD UREA NITROGEN 21 MG/DL (7-18); CALCIUM LEVEL 7.8 MG/DL (8.8-10.2); CARBON DIOXIDE LEVEL 22 MEQ/L (21-32); CHLORIDE LEVEL 108 MEQ/L (98-107); CREATININE FOR GFR 1.72 MG/DL (0.70-1.30); GLUCOSE, FASTING 87 MG/DL (70-100); MAGNESIUM LEVEL 1.8 MG/DL (1.8-2.4); SODIUM LEVEL 138 MEQ/L (136-145); TOTAL PROTEIN 5.1 GM/DL (6.4-8.2)
[2018-04-22] MEDS: TACROLIMUS 0.5 MG CAP PO ×2 (08:34→20:27)
[2018-04-22] MEDS: CALCITRIOL 0.25 MCG CAP (S0169) PO (08:34)
[2018-04-22] MEDS: ALPRAZolam 0.25 MG TAB PO ×2 (08:34→20:27)
[2018-04-22] MEDS: predniSONE 5 MG TAB PO (08:34)
[2018-04-22] MEDS: VITAMIN D 1,000 INTERNATIONAL UNITS TABLET PO (08:35)
[2018-04-22] MEDS: MAGNESIUM OXIDE 400 MG TAB (MAG-OX) PO ×2 (08:35→20:27)
[2018-04-22] MEDS: OMEPRAZOLE 20 MG CAP PO (08:35)
[2018-04-22] MEDS: ASPIRIN 81 MG ENTERIC TAB PO (09:03)
[2018-04-22] MEDS: NS 1,000 ML IV (14:53)
[2018-04-22] MEDS: ALLOPURINOL 100 MG TAB PO (20:27)
[2018-04-22] MEDS: CLOPIDOGREL 75 MG TAB PO (21:53)
[2018-04-22] MEDS: fentaNYL 100 MCG/2 ML INJECTION (J3010) IV (23:07)
[2018-04-23] MEDS: MEROPENEM INJ 1 GM in APPROPRIATE DILUENT 1 EA IV (04:12)
[2018-04-23 05:18] LABS: BASO % 0.1 % (0.0-1.0); EOS # 0.1 10^3/uL (0.0-0.50); EOS % 1.1 % (0.0-3.0); HEMOGLOBIN 11.7 g/dl (13.5-17.5); IMMATURE GRANULOCYTE % 0.8 % (0-3.0); MEAN CORPUSCULAR HEMOGLOBIN 27.3 pg (27.0-33.0); MEAN CORPUSCULAR HGB CONC 32.5 g/dl (32.0-36.5); MEAN CORPUSCULAR VOLUME 83.9 fl (80.0-96.0); MONO # 0.6 10^3/uL (0.0-0.8); MONO % 7.7 % (0.0-5.0); NEUTROPHILS # 5.5 10^3/uL (1.8-7.7); NEUTROPHILS % 76.3 % (36.0-66.0); RED BLOOD COUNT 4.29 10^6/uL (4.30-6.10); RED CELL DISTRIBUTION WIDTH 15.3 % (11.5-14.5); WHITE BLOOD COUNT 7.2 10^3/uL (4.0-10.0)
[2018-04-23 05:30] LABS: INR 1.15; PROTHROMBIN TIME 14.8 SECONDS (12.1-14.4)
[2018-04-23 05:46] LABS: PLATELET COUNT, AUTOMATED 81 10^3/uL (150-450)
[2018-04-23 05:47] LABS: IMMATURE PLATELET FRACTION % 2.7 % (0.0-10.9)
[2018-04-23 05:49] LABS: ALBUMIN 2.4 GM/DL (3.2-5.2); ALBUMIN/GLOBULIN RATIO 0.75 (1.00-1.93); ALKALINE PHOSPHATASE 189 U/L (45-117); ALT/SGPT 238 U/L (12-78); ANION GAP 7 MEQ/L (8-16); AST/SGOT 76 U/L (7-37); BILIRUBIN,TOTAL 1.7 MG/DL (0.2-1.0); BLOOD UREA NITROGEN 26 MG/DL (7-18); CARBON DIOXIDE LEVEL 24 MEQ/L (21-32); CHLORIDE LEVEL 109 MEQ/L (98-107); CREATININE FOR GFR 1.69 MG/DL (0.70-1.30); GLOMERULAR FILTRATION RATE 43.8 (>49); GLUCOSE, FASTING 95 MG/DL (70-100); MAGNESIUM LEVEL 1.5 MG/DL (1.8-2.4); POTASSIUM SERUM 3.6 MEQ/L (3.5-5.1); SODIUM LEVEL 140 MEQ/L (136-145); TOTAL PROTEIN 5.6 GM/DL (6.4-8.2)
[2018-04-23] MEDS: MAG SULF 1GM/100ML (MAG RUN) 1 GM in APPROPRIATE DILUENT 1 EA IV ×2 (08:00→09:33)
[2018-04-23] MEDS: MAGNESIUM OXIDE 400 MG TAB (MAG-OX) PO ×2 (08:00→20:15)
[2018-04-23] MEDS: ALPRAZolam 0.25 MG TAB PO ×2 (08:00→20:15)
[2018-04-23] MEDS: OMEPRAZOLE 20 MG CAP PO (08:01)
[2018-04-23] MEDS: VITAMIN D 1,000 INTERNATIONAL UNITS TABLET PO (08:01)
[2018-04-23] MEDS: ASPIRIN 81 MG ENTERIC TAB PO (08:01)
[2018-04-23] MEDS: TACROLIMUS 0.5 MG CAP PO ×2 (08:01→20:15)
[2018-04-23] MEDS: predniSONE 5 MG TAB PO (08:01)
[2018-04-23] MEDS: ACETAMINOPHEN 325 MG TAB PO (08:01)
[2018-04-23] MEDS: CALCITRIOL 0.25 MCG CAP (S0169) PO (08:02)
[2018-04-23] MEDS: ONDANSETRON 4MG/2ML VIAL (J2405) IV ×3 (09:33→21:53)
[2018-04-23] MEDS: MORPHINE 4 MG/ML 1ML VIAL/SYRINGE (J2270) IV ×3 (09:33→21:54)
[2018-04-23] MEDS: NS 0.45% 1,000 ML IV (10:47)
[2018-04-23] MEDS: predniSONE 20 MG TAB PO (10:48)
[2018-04-23] MEDS: CLOPIDOGREL 75 MG TAB PO (10:52)
[2018-04-23] MEDS: amLODIPine 5 MG TAB PO (14:27)
[2018-04-23 17:39] LABS: URIC ACID 4.2 MG/DL (3.5-7.2)
[2018-04-23] MEDS: ERTAPENEM SODIUM 1 GM in NS MINI-BAG PLUS 50 ML IV (17:45)
[2018-04-23] MEDS: ALLOPURINOL 100 MG TAB PO (20:15)
[2018-04-24] MEDS: ONDANSETRON 4MG/2ML VIAL (J2405) IV ×5 (04:57→22:21)
[2018-04-24] MEDS: MORPHINE 4 MG/ML 1ML VIAL/SYRINGE (J2270) IV ×2 (04:58→11:08)
[2018-04-24 06:00] LABS: BASO % 0.3 % (0.0-1.0); EOS % 0.2 % (0.0-3.0); HEMATOCRIT 33.3 % (42.0-52.0); HEMOGLOBIN 10.9 g/dl (13.5-17.5); IMMATURE GRANULOCYTE % 0.9 % (0-3.0); LYMPH # 0.8 10^3/uL (1.5-4.5); LYMPH % 12.3 % (24.0-44.0); MEAN CORPUSCULAR HEMOGLOBIN 27.6 pg (27.0-33.0); MEAN CORPUSCULAR HGB CONC 32.7 g/dl (32.0-36.5); MEAN CORPUSCULAR VOLUME 84.3 fl (80.0-96.0); MONO # 0.5 10^3/uL (0.0-0.8); NEUTROPHILS # 5.2 10^3/uL (1.8-7.7); NEUTROPHILS % 78.3 % (36.0-66.0); RED BLOOD COUNT 3.95 10^6/uL (4.30-6.10); RED CELL DISTRIBUTION WIDTH 15.5 % (11.5-14.5); WHITE BLOOD COUNT 6.6 10^3/uL (4.0-10.0)
[2018-04-24 06:02] LABS: PLATELET COUNT, AUTOMATED 77 10^3/uL (150-450)
[2018-04-24 06:03] LABS: PLATELET F 3.1
[2018-04-24 06:15] LABS: INR 0.99; PROTHROMBIN TIME 13.2 SECONDS (12.1-14.4)
[2018-04-24 06:23] LABS: ALBUMIN 2.4 GM/DL (3.2-5.2); ALBUMIN/GLOBULIN RATIO 0.73 (1.00-1.93); ALKALINE PHOSPHATASE 166 U/L (45-117); ALT/SGPT 164 U/L (12-78); ANION GAP 6 MEQ/L (8-16); AST/SGOT 35 U/L (7-37); BILIRUBIN,TOTAL 1.6 MG/DL (0.2-1.0); BLOOD UREA NITROGEN 23 MG/DL (7-18); CALCIUM LEVEL 8.3 MG/DL (8.8-10.2); CARBON DIOXIDE LEVEL 25 MEQ/L (21-32); CHLORIDE LEVEL 106 MEQ/L (98-107); CREATININE FOR GFR 1.32 MG/DL (0.70-1.30); GLOMERULAR FILTRATION RATE 58.3 (>49); GLUCOSE, FASTING 93 MG/DL (70-100); MAGNESIUM LEVEL 1.9 MG/DL (1.8-2.4); POTASSIUM SERUM 4.1 MEQ/L (3.5-5.1); SODIUM LEVEL 137 MEQ/L (136-145); TOTAL PROTEIN 5.7 GM/DL (6.4-8.2)
[2018-04-24] MEDS: ALPRAZolam 0.25 MG TAB PO ×2 (09:51→22:12)
[2018-04-24] MEDS: MAGNESIUM OXIDE 400 MG TAB (MAG-OX) PO ×2 (09:52→22:13)
[2018-04-24] MEDS: VITAMIN D 1,000 INTERNATIONAL UNITS TABLET PO (09:53)
[2018-04-24] MEDS: TACROLIMUS 0.5 MG CAP PO ×2 (09:53→22:13)
[2018-04-24] MEDS: OMEPRAZOLE 20 MG CAP PO (09:53)
[2018-04-24] MEDS: ASPIRIN 81 MG ENTERIC TAB PO (09:53)
[2018-04-24] MEDS: CALCITRIOL 0.25 MCG CAP (S0169) PO (09:53)
[2018-04-24] MEDS: amLODIPine 5 MG TAB PO (09:54)
[2018-04-24] MEDS: predniSONE 10 MG TAB PO (09:54)
[2018-04-24] MEDS: CLOPIDOGREL 75 MG TAB PO (09:54)
[2018-04-24] MEDS: NS 0.45% 1,000 ML IV ×2 (11:13→20:29)
[2018-04-24 14:21] LABS: CMV QUANT DNA PCR (PLASMA) Negative (Negative)
[2018-04-24] MEDS ORDERED: ISOVUE-300 61% 50ML VIAL (Q9967) As Ordered (14:43)
[2018-04-24] MEDS: ERTAPENEM SODIUM 1 GM in NS MINI-BAG PLUS 50 ML IV (18:00)
[2018-04-24] MEDS ORDERED: ONDANSETRON 4MG/2ML VIAL (J2405) As Ordered ×2 (18:13→18:58)
[2018-04-24] MEDS ORDERED: PROPOFOL 200 MG/20 ML VIAL As Ordered (18:13)
[2018-04-24] MEDS ORDERED: fentaNYL 100 MCG/2 ML INJECTION (J3010) As Ordered (18:13)
[2018-04-24] MEDS ORDERED: dexameTHASONE 4 MG/ML 1ML VIAL (J1100) As Ordered (18:13)
[2018-04-24] MEDS ORDERED: LIDOCAINE 2% INJ 100 MG/5 ML SDV (FOR ANES.) As Ordered (18:13)
[2018-04-24] MEDS ORDERED: SUCCINYLCHOLINE 100 MG/5 ML SYRINGE (J0330) As Ordered (18:13)
[2018-04-24] MEDS ORDERED: MIDAZOLAM INJ 2 MG/2 ML VIAL (J2250) As Ordered (18:13)
[2018-04-24] MEDS ORDERED: ROCURONIUM BROMIDE 50 MG/5 ML VIAL As Ordered (18:13)
[2018-04-24] MEDS ORDERED: PHENYLephrine HCL 500 MCG/5 ML (100MCG/ML) SYRINGE (J2370) As Ordered (18:13)
[2018-04-24] MEDS ORDERED: GLYCOPYRROLATE INJ 0.2 MG/ML 2 ML VIAL As Ordered ×2 (18:16)
[2018-04-24] MEDS ORDERED: NEOSTIGMINE 10 MG/10 ML VIAL (J2710) As Ordered (18:16)
[2018-04-24] MEDS ORDERED: METOCLOPRAMIDE INJ 10MG/2ML VIAL (J2765) As Ordered (19:13)
[2018-04-24] MEDS: METOCLOPRAMIDE INJ 10MG/2ML VIAL (J2765) IV (19:15)
[2018-04-24] MEDS ORDERED: PERCOCET 5MG/325MG TAB PO (19:30)
[2018-04-24] MEDS ORDERED: fentaNYL 100 MCG/2 ML INJECTION (J3010) IV (19:30)
[2018-04-24] MEDS: LR 1,000 ML IV (19:30)
[2018-04-24] MEDS: ALLOPURINOL 100 MG TAB PO (22:13)
[2018-04-25] MEDS ORDERED: SLF 3 ML SYR IV (00:15)
[2018-04-25 05:13] LABS: HEMATOCRIT 35.8 % (42.0-52.0); HEMOGLOBIN 11.5 g/dl (13.5-17.5); IMMATURE GRANULOCYTE % 0.9 % (0-3.0); LYMPH # 0.5 10^3/uL (1.5-4.5); MEAN CORPUSCULAR HEMOGLOBIN 27.3 pg (27.0-33.0); MEAN CORPUSCULAR HGB CONC 32.1 g/dl (32.0-36.5); MONO # 0.3 10^3/uL (0.0-0.8); MONO % 5.9 % (0.0-5.0); NEUTROPHILS # 3.7 10^3/uL (1.8-7.7); NEUTROPHILS % 82.2 % (36.0-66.0); PLATELET COUNT, AUTOMATED 102 10^3/uL (150-450); RED BLOOD COUNT 4.21 10^6/uL (4.30-6.10); RED CELL DISTRIBUTION WIDTH 15.7 % (11.5-14.5); WHITE BLOOD COUNT 4.6 10^3/uL (4.0-10.0)
[2018-04-25] MEDS: ONDANSETRON 4MG/2ML VIAL (J2405) IV ×2 (05:25→21:16)
[2018-04-25] MEDS: MORPHINE 4 MG/ML 1ML VIAL/SYRINGE (J2270) IV ×2 (05:25→21:16)
[2018-04-25] MEDS: SLF 3 ML SYR IV ×3 (05:31→21:10)
[2018-04-25 05:48] LABS: ALBUMIN 2.4 GM/DL (3.2-5.2); ALBUMIN/GLOBULIN RATIO 0.69 (1.00-1.93); ALKALINE PHOSPHATASE 151 U/L (45-117); ALT/SGPT 129 U/L (12-78); ANION GAP 10 MEQ/L (8-16); AST/SGOT 30 U/L (7-37); BILIRUBIN,TOTAL 1.1 MG/DL (0.2-1.0); BLOOD UREA NITROGEN 30 MG/DL (7-18); CALCIUM LEVEL 8.1 MG/DL (8.8-10.2); CARBON DIOXIDE LEVEL 22 MEQ/L (21-32); CHLORIDE LEVEL 105 MEQ/L (98-107); CREATININE FOR GFR 1.46 MG/DL (0.70-1.30); GLOMERULAR FILTRATION RATE 51.9 (>49); GLUCOSE, FASTING 109 MG/DL (70-100); POTASSIUM SERUM 4.5 MEQ/L (3.5-5.1); SODIUM LEVEL 137 MEQ/L (136-145); TOTAL PROTEIN 5.9 GM/DL (6.4-8.2)
[2018-04-25 06:02] LABS: INR 1.02; PROTHROMBIN TIME 13.5 SECONDS (12.1-14.4)
[2018-04-25] MEDS: MAGNESIUM OXIDE 400 MG TAB (MAG-OX) PO ×2 (08:09→21:10)
[2018-04-25] MEDS: OMEPRAZOLE 20 MG CAP PO (08:09)
[2018-04-25] MEDS: amLODIPine 5 MG TAB PO (08:10)
[2018-04-25] MEDS: CLOPIDOGREL 75 MG TAB PO (08:10)
[2018-04-25] MEDS: TACROLIMUS 0.5 MG CAP PO ×2 (08:11→21:10)
[2018-04-25] MEDS: VITAMIN D 1,000 INTERNATIONAL UNITS TABLET PO (08:11)
[2018-04-25] MEDS: CALCITRIOL 0.25 MCG CAP (S0169) PO (08:11)
[2018-04-25] MEDS: predniSONE 10 MG TAB PO (08:11)
[2018-04-25] MEDS: ASPIRIN 81 MG ENTERIC TAB PO (08:11)
[2018-04-25] MEDS: ALPRAZolam 0.25 MG TAB PO ×2 (09:15→21:09)
[2018-04-25] MEDS ORDERED: ISOVUE-300 61% 50ML VIAL (Q9967) (14:11)
[2018-04-25] MEDS: ERTAPENEM SODIUM 1 GM in NS MINI-BAG PLUS 50 ML IV (17:38)
[2018-04-25] MEDS: ALLOPURINOL 100 MG TAB PO (21:10)
[2018-04-25] MEDS: SIMETHICONE 80 MG CHEW TAB PO (23:19)
[2018-04-26] MEDS: GASTROGRAFIN SOLUTION 30ML PO ×2 (00:11→00:48)
[2018-04-26] MEDS: ONDANSETRON 4MG/2ML VIAL (J2405) IV ×5 (02:48→20:24)
[2018-04-26] MEDS: MORPHINE 4 MG/ML 1ML VIAL/SYRINGE (J2270) IV ×6 (02:48→20:23)
[2018-04-26] MEDS: SLF 3 ML SYR IV ×3 (04:42→22:00)
[2018-04-26] MEDS: NS 500 ML IV ×3 (05:22→20:20)
[2018-04-26 05:26] LABS: BASO % 0.1 % (0.0-1.0); HEMATOCRIT 36.5 % (42.0-52.0); HEMOGLOBIN 11.9 g/dl (13.5-17.5); LYMPH # 1.1 10^3/uL (1.5-4.5); LYMPH % 8.2 % (24.0-44.0); MEAN CORPUSCULAR HEMOGLOBIN 27.4 pg (27.0-33.0); MEAN CORPUSCULAR HGB CONC 32.6 g/dl (32.0-36.5); MEAN CORPUSCULAR VOLUME 84.1 fl (80.0-96.0); MONO # 0.8 10^3/uL (0.0-0.8); MONO % 5.9 % (0.0-5.0); NEUTROPHILS # 11.7 10^3/uL (1.8-7.7); NEUTROPHILS % 84.8 % (36.0-66.0); PLATELET COUNT, AUTOMATED 178 10^3/uL (150-450); RED BLOOD COUNT 4.34 10^6/uL (4.30-6.10); RED CELL DISTRIBUTION WIDTH 15.5 % (11.5-14.5); WHITE BLOOD COUNT 13.8 10^3/uL (4.0-10.0)
[2018-04-26 05:36] LABS: INR 1.03; PROTHROMBIN TIME 13.7 SECONDS (12.1-14.4)
[2018-04-26 05:54] LABS: LIPASE 22574 U/L (73-393)
[2018-04-26 05:55] LABS: ALBUMIN 2.6 GM/DL (3.2-5.2); ALKALINE PHOSPHATASE 149 U/L (45-117); ALT/SGPT 101 U/L (12-78); ANION GAP 8 MEQ/L (8-16); AST/SGOT 26 U/L (7-37); BILIRUBIN,TOTAL 1.1 MG/DL (0.2-1.0); BLOOD UREA NITROGEN 35 MG/DL (7-18); CALCIUM LEVEL 8.5 MG/DL (8.8-10.2); CARBON DIOXIDE LEVEL 24 MEQ/L (21-32); CHLORIDE LEVEL 104 MEQ/L (98-107); GLOMERULAR FILTRATION RATE 50.3 (>49); GLUCOSE, FASTING 85 MG/DL (70-100); MAGNESIUM LEVEL 1.8 MG/DL (1.8-2.4); POTASSIUM SERUM 3.6 MEQ/L (3.5-5.1); SODIUM LEVEL 136 MEQ/L (136-145); TOTAL PROTEIN 6.3 GM/DL (6.4-8.2)
[2018-04-26] MEDS: ALPRAZolam 0.25 MG TAB PO ×2 (08:40→20:25)
[2018-04-26] MEDS: MAGNESIUM OXIDE 400 MG TAB (MAG-OX) PO ×2 (08:41→20:24)
[2018-04-26] MEDS: CALCITRIOL 0.25 MCG CAP (S0169) PO (08:41)
[2018-04-26] MEDS: VITAMIN D 1,000 INTERNATIONAL UNITS TABLET PO (08:41)
[2018-04-26] MEDS: predniSONE 10 MG TAB PO (08:42)
[2018-04-26] MEDS: CLOPIDOGREL 75 MG TAB PO (08:42)
[2018-04-26] MEDS: ASPIRIN 81 MG ENTERIC TAB PO (08:42)
[2018-04-26] MEDS: OMEPRAZOLE 20 MG CAP PO (08:42)
[2018-04-26] MEDS: amLODIPine 5 MG TAB PO (08:42)
[2018-04-26] MEDS: TACROLIMUS 0.5 MG CAP PO ×2 (08:42→20:24)
[2018-04-26] MEDS: NS 1,000 ML IV (10:35)
[2018-04-26] MEDS: SIMETHICONE 80 MG CHEW TAB PO (11:08)
[2018-04-26] MEDS: ERTAPENEM SODIUM 1 GM in NS MINI-BAG PLUS 50 ML IV (17:59)
[2018-04-26] MEDS: ALLOPURINOL 100 MG TAB PO (20:24)
[2018-04-26] MEDS: ACETAMINOPHEN 325 MG TAB PO (20:34)
[2018-04-27] MEDS: MORPHINE 4 MG/ML 1ML VIAL/SYRINGE (J2270) IV ×4 (00:40→20:47)
[2018-04-27] MEDS: ONDANSETRON 4MG/2ML VIAL (J2405) IV ×4 (00:41→20:47)
[2018-04-27] MEDS: NS 500 ML IV ×6 (03:29→22:22)
[2018-04-27] MEDS: SLF 3 ML SYR IV ×3 (05:05→21:16)
[2018-04-27 07:04] LABS: HEMATOCRIT 32.9 % (42.0-52.0); HEMOGLOBIN 10.5 g/dl (13.5-17.5); MEAN CORPUSCULAR HEMOGLOBIN 27.3 pg (27.0-33.0); MEAN CORPUSCULAR HGB CONC 31.9 g/dl (32.0-36.5); MEAN CORPUSCULAR VOLUME 85.7 fl (80.0-96.0); PLATELET COUNT, AUTOMATED 151 10^3/uL (150-450); RED BLOOD COUNT 3.84 10^6/uL (4.30-6.10); RED CELL DISTRIBUTION WIDTH 15.9 % (11.5-14.5)
[2018-04-27 07:28] LABS: ANION GAP 9 MEQ/L (8-16); BLOOD UREA NITROGEN 30 MG/DL (7-18); CALCIUM LEVEL 8.2 MG/DL (8.8-10.2); CARBON DIOXIDE LEVEL 21 MEQ/L (21-32); CHLORIDE LEVEL 110 MEQ/L (98-107); CREATININE FOR GFR 1.38 MG/DL (0.70-1.30); GLOMERULAR FILTRATION RATE 55.4 (>49); GLUCOSE, FASTING 72 MG/DL (70-100); POTASSIUM SERUM 4.6 MEQ/L (3.5-5.1); SODIUM LEVEL 140 MEQ/L (136-145)
[2018-04-27] MEDS: VITAMIN D 1,000 INTERNATIONAL UNITS TABLET PO (08:34)
[2018-04-27] MEDS: CLOPIDOGREL 75 MG TAB PO (08:34)
[2018-04-27] MEDS: predniSONE 5 MG TAB PO (08:34)
[2018-04-27] MEDS: MAGNESIUM OXIDE 400 MG TAB (MAG-OX) PO ×2 (08:34→20:46)
[2018-04-27] MEDS: CALCITRIOL 0.25 MCG CAP (S0169) PO (08:35)
[2018-04-27] MEDS: TACROLIMUS 0.5 MG CAP PO ×2 (08:35→20:46)
[2018-04-27] MEDS: ASPIRIN 81 MG ENTERIC TAB PO (08:35)
[2018-04-27] MEDS: OMEPRAZOLE 20 MG CAP PO (08:35)
[2018-04-27] MEDS: amLODIPine 5 MG TAB PO (08:35)
[2018-04-27] MEDS: ALPRAZolam 0.25 MG TAB PO ×2 (08:36→20:46)
[2018-04-27 08:50] LABS: ALBUMIN/GLOBULIN RATIO 0.59 (1.00-1.93); ALKALINE PHOSPHATASE 126 U/L (45-117); ALT/SGPT 61 U/L (12-78); AST/SGOT 23 U/L (7-37); BILIRUBIN,DIRECT 0.7 MG/DL (0.0-0.2); BILIRUBIN,TOTAL 1.2 MG/DL (0.2-1.0); LIPASE 2882 U/L (73-393); TOTAL PROTEIN 5.4 GM/DL (6.4-8.2)
[2018-04-27] MEDS: ERTAPENEM SODIUM 1 GM in NS MINI-BAG PLUS 50 ML IV (18:34)
[2018-04-27] MEDS: ALLOPURINOL 100 MG TAB PO (20:46)
[2018-04-28] MEDS: MORPHINE 4 MG/ML 1ML VIAL/SYRINGE (J2270) IV ×4 (04:39→22:09)
[2018-04-28] MEDS: ONDANSETRON 4MG/2ML VIAL (J2405) IV ×4 (04:40→22:08)
[2018-04-28] MEDS: SLF 3 ML SYR IV ×3 (05:38→21:16)
[2018-04-28 06:02] LABS: HEMOGLOBIN 10.4 g/dl (13.5-17.5); MEAN CORPUSCULAR HEMOGLOBIN 27.2 pg (27.0-33.0); MEAN CORPUSCULAR HGB CONC 31.5 g/dl (32.0-36.5); MEAN CORPUSCULAR VOLUME 86.4 fl (80.0-96.0); PLATELET COUNT, AUTOMATED 175 10^3/uL (150-450); RED BLOOD COUNT 3.82 10^6/uL (4.30-6.10); RED CELL DISTRIBUTION WIDTH 15.9 % (11.5-14.5); WHITE BLOOD COUNT 17.4 10^3/uL (4.0-10.0)
[2018-04-28 06:25] LABS: ALBUMIN 1.9 GM/DL (3.2-5.2); ALBUMIN/GLOBULIN RATIO 0.56 (1.00-1.93); ALKALINE PHOSPHATASE 118 U/L (45-117); ALT/SGPT 45 U/L (12-78); ANION GAP 9 MEQ/L (8-16); AST/SGOT 21 U/L (7-37); BLOOD UREA NITROGEN 26 MG/DL (7-18); CALCIUM LEVEL 8.2 MG/DL (8.8-10.2); CARBON DIOXIDE LEVEL 20 MEQ/L (21-32); CHLORIDE LEVEL 108 MEQ/L (98-107); CREATININE FOR GFR 1.35 MG/DL (0.70-1.30); GLOMERULAR FILTRATION RATE 56.8 (>49); GLUCOSE, FASTING 46 MG/DL (70-100); POTASSIUM SERUM 3.8 MEQ/L (3.5-5.1); SODIUM LEVEL 137 MEQ/L (136-145); TOTAL PROTEIN 5.3 GM/DL (6.4-8.2)
[2018-04-28] MEDS: NS 500 ML IV (06:25)
[2018-04-28] MEDS: DEXTROSE 50% 50 ML SYRINGE IV (06:45)
[2018-04-28 07:01] LABS: BEDSIDE GLUCOSE 99 MG/DL (80-115)
[2018-04-28] MEDS: HEPARIN SOD (PORCINE) 5000 UNITS/ML VIAL SQ ×2 (09:21→21:17)
[2018-04-28] MEDS: TACROLIMUS 0.5 MG CAP PO ×2 (09:22→21:18)
[2018-04-28] MEDS: CLOPIDOGREL 75 MG TAB PO (09:22)
[2018-04-28] MEDS: ALPRAZolam 0.25 MG TAB PO ×2 (09:22→21:17)
[2018-04-28] MEDS: CALCITRIOL 0.25 MCG CAP (S0169) PO (09:22)
[2018-04-28] MEDS: VITAMIN D 1,000 INTERNATIONAL UNITS TABLET PO (09:23)
[2018-04-28] MEDS: ASPIRIN 81 MG ENTERIC TAB PO (09:23)
[2018-04-28] MEDS: MAGNESIUM OXIDE 400 MG TAB (MAG-OX) PO ×2 (09:23→21:17)
[2018-04-28] MEDS: CARVedilol 12.5 MG TAB PO ×2 (09:23→21:00)
[2018-04-28] MEDS: predniSONE 5 MG TAB PO (09:23)
[2018-04-28] MEDS: OMEPRAZOLE 20 MG CAP PO (09:23)
[2018-04-28] MEDS: amLODIPine 5 MG TAB PO (09:24)
[2018-04-28] MEDS: D5W/LR 1,000 ML IV (12:34)
[2018-04-28] MEDS: ERTAPENEM SODIUM 1 GM in NS MINI-BAG PLUS 50 ML IV (18:18)
[2018-04-28 18:31] LABS: LIPASE 1797 U/L (73-393)
[2018-04-28] MEDS: ALLOPURINOL 100 MG TAB PO (21:18)
[2018-04-29] MEDS: D5W/LR 1,000 ML IV (00:13)
[2018-04-29] MEDS: SLF 3 ML SYR IV ×3 (02:38→19:26)
[2018-04-29] MEDS: MORPHINE 4 MG/ML 1ML VIAL/SYRINGE (J2270) IV ×3 (04:06→20:24)
[2018-04-29] MEDS: ONDANSETRON 4MG/2ML VIAL (J2405) IV ×3 (04:06→20:23)
[2018-04-29 05:46] LABS: HEMOGLOBIN 10.1 g/dl (13.5-17.5); MEAN CORPUSCULAR HEMOGLOBIN 27.1 pg (27.0-33.0); MEAN CORPUSCULAR HGB CONC 31.6 g/dl (32.0-36.5); MEAN CORPUSCULAR VOLUME 85.8 fl (80.0-96.0); PLATELET COUNT, AUTOMATED 166 10^3/uL (150-450); RED BLOOD COUNT 3.73 10^6/uL (4.30-6.10); RED CELL DISTRIBUTION WIDTH 15.6 % (11.5-14.5); WHITE BLOOD COUNT 11.5 10^3/uL (4.0-10.0)
[2018-04-29 06:12] LABS: ALBUMIN 1.7 GM/DL (3.2-5.2); ALKALINE PHOSPHATASE 106 U/L (45-117); ALT/SGPT 40 U/L (12-78); ANION GAP 5 MEQ/L (8-16); AST/SGOT 33 U/L (7-37); BILIRUBIN,TOTAL 0.8 MG/DL (0.2-1.0); BLOOD UREA NITROGEN 24 MG/DL (7-18); CALCIUM LEVEL 8.2 MG/DL (8.8-10.2); CARBON DIOXIDE LEVEL 24 MEQ/L (21-32); CHLORIDE LEVEL 107 MEQ/L (98-107); CREATININE FOR GFR 1.33 MG/DL (0.70-1.30); GLOMERULAR FILTRATION RATE 57.8 (>49); GLUCOSE, FASTING 95 MG/DL (70-100); LIPASE 951 U/L (73-393); POTASSIUM SERUM 3.6 MEQ/L (3.5-5.1); SODIUM LEVEL 136 MEQ/L (136-145); TOTAL PROTEIN 5.1 GM/DL (6.4-8.2)
[2018-04-29] MEDS: HEPARIN SOD (PORCINE) 5000 UNITS/ML VIAL SQ ×2 (08:32→20:23)
[2018-04-29] MEDS: TACROLIMUS 0.5 MG CAP PO ×2 (08:32→20:24)
[2018-04-29] MEDS: KCL 20MEQ IN D5/0.45NS 1000ML 1,000 ML IV (08:32)
[2018-04-29] MEDS: OMEPRAZOLE 20 MG CAP PO (08:33)
[2018-04-29] MEDS: CALCITRIOL 0.25 MCG CAP (S0169) PO (08:33)
[2018-04-29] MEDS: CLOPIDOGREL 75 MG TAB PO (08:33)
[2018-04-29] MEDS: CARVedilol 12.5 MG TAB PO ×2 (08:33→20:24)
[2018-04-29] MEDS: VITAMIN D 1,000 INTERNATIONAL UNITS TABLET PO (08:33)
[2018-04-29] MEDS: POTASSIUM CHLORIDE 10 MEQ SR TABLET PO (08:33)
[2018-04-29] MEDS: amLODIPine 5 MG TAB PO (08:34)
[2018-04-29] MEDS: MAGNESIUM OXIDE 400 MG TAB (MAG-OX) PO ×2 (08:34→20:25)
[2018-04-29] MEDS: ALPRAZolam 0.25 MG TAB PO ×2 (08:34→20:24)
[2018-04-29] MEDS: ACETAMINOPHEN 325 MG TAB PO (08:34)
[2018-04-29] MEDS: predniSONE 5 MG TAB PO (08:34)
[2018-04-29] MEDS: ASPIRIN 81 MG ENTERIC TAB PO (08:35)
[2018-04-29] MEDS: POTASSIUM CHLORIDE INJ 20 MEQ in D5W/LR 1,000 ML IV ×2 (10:56→21:21)
[2018-04-29] MEDS: ERTAPENEM SODIUM 1 GM in NS MINI-BAG PLUS 50 ML IV (17:05)
[2018-04-29] MEDS: ALLOPURINOL 100 MG TAB PO (20:24)
[2018-04-30] MEDS: ONDANSETRON 4MG/2ML VIAL (J2405) IV (04:05)
[2018-04-30] MEDS: MORPHINE 4 MG/ML 1ML VIAL/SYRINGE (J2270) IV (04:06)
[2018-04-30] MEDS: SLF 3 ML SYR IV ×3 (04:57→22:00)
[2018-04-30 05:42] LABS: HEMATOCRIT 31.9 % (42.0-52.0); HEMOGLOBIN 10.5 g/dl (13.5-17.5); MEAN CORPUSCULAR HEMOGLOBIN 27.8 pg (27.0-33.0); MEAN CORPUSCULAR HGB CONC 32.9 g/dl (32.0-36.5); MEAN CORPUSCULAR VOLUME 84.4 fl (80.0-96.0); PLATELET COUNT, AUTOMATED 160 10^3/uL (150-450); RED BLOOD COUNT 3.78 10^6/uL (4.30-6.10); RED CELL DISTRIBUTION WIDTH 15.3 % (11.5-14.5); WHITE BLOOD COUNT 8.9 10^3/uL (4.0-10.0)
[2018-04-30 06:11] LABS: ALBUMIN 1.7 GM/DL (3.2-5.2); ALBUMIN/GLOBULIN RATIO 0.52 (1.00-1.93); ALKALINE PHOSPHATASE 123 U/L (45-117); ALT/SGPT 52 U/L (12-78); ANION GAP 7 MEQ/L (8-16); AST/SGOT 58 U/L (7-37); BILIRUBIN,TOTAL 0.7 MG/DL (0.2-1.0); BLOOD UREA NITROGEN 23 MG/DL (7-18); CALCIUM LEVEL 8.2 MG/DL (8.8-10.2); CARBON DIOXIDE LEVEL 23 MEQ/L (21-32); CHLORIDE LEVEL 107 MEQ/L (98-107); CREATININE FOR GFR 1.45 MG/DL (0.70-1.30); GLOMERULAR FILTRATION RATE 52.3 (>49); GLUCOSE, FASTING 88 MG/DL (70-100); LIPASE 770 U/L (73-393); POTASSIUM SERUM 3.9 MEQ/L (3.5-5.1); SODIUM LEVEL 137 MEQ/L (136-145)
[2018-04-30 08:40] LABS: NT-PRO BNP 2113 PG/ML (<125)
[2018-04-30] MEDS: ALPRAZolam 0.25 MG TAB PO ×2 (08:56→21:46)
[2018-04-30] MEDS: HEPARIN SOD (PORCINE) 5000 UNITS/ML VIAL SQ ×2 (08:57→21:46)
[2018-04-30] MEDS: CALCITRIOL 0.25 MCG CAP (S0169) PO (08:59)
[2018-04-30] MEDS: MAGNESIUM OXIDE 400 MG TAB (MAG-OX) PO ×2 (08:59→21:45)
[2018-04-30] MEDS: OMEPRAZOLE 20 MG CAP PO (08:59)
[2018-04-30] MEDS: POTASSIUM CHLORIDE INJ 20 MEQ in D5W/LR 1,000 ML IV ×2 (08:59→21:35)
[2018-04-30] MEDS: CLOPIDOGREL 75 MG TAB PO (08:59)
[2018-04-30] MEDS: ACETAMINOPHEN 325 MG TAB PO (09:00)
[2018-04-30] MEDS: VITAMIN D 1,000 INTERNATIONAL UNITS TABLET PO (09:00)
[2018-04-30] MEDS: amLODIPine 5 MG TAB PO (09:00)
[2018-04-30] MEDS: TACROLIMUS 0.5 MG CAP PO ×2 (09:00→21:45)
[2018-04-30] MEDS: ASPIRIN 81 MG ENTERIC TAB PO (09:00)
[2018-04-30] MEDS: predniSONE 5 MG TAB PO ×2 (09:01→13:48)
[2018-04-30] MEDS: CARVedilol 12.5 MG TAB PO ×2 (09:01→21:45)
[2018-04-30] MEDS ORDERED: MORPHINE 4 MG/ML 1ML VIAL/SYRINGE (J2270) IV (10:15)
[2018-04-30] MEDS: TOLNAFTATE 1% CREAM 15 GM TOP ×2 (21:00→21:46)
[2018-04-30] MEDS: ERTAPENEM SODIUM 1 GM in NS MINI-BAG PLUS 50 ML IV (21:42)
[2018-04-30] MEDS: ALLOPURINOL 100 MG TAB PO (21:45)
[2018-04-30] MEDS: LACTOBACILLUS ACIDOPHILUS CAP (BACID) PO (21:46)
[2018-05-01] MEDS: SLF 3 ML SYR IV ×3 (05:54→21:35)
[2018-05-01 06:01] LABS: HEMATOCRIT 31.5 % (42.0-52.0); HEMOGLOBIN 10.3 g/dl (13.5-17.5); MEAN CORPUSCULAR HEMOGLOBIN 27.3 pg (27.0-33.0); MEAN CORPUSCULAR HGB CONC 32.7 g/dl (32.0-36.5); MEAN CORPUSCULAR VOLUME 83.6 fl (80.0-96.0); PLATELET COUNT, AUTOMATED 188 10^3/uL (150-450); RED BLOOD COUNT 3.77 10^6/uL (4.30-6.10); WHITE BLOOD COUNT 7.5 10^3/uL (4.0-10.0)
[2018-05-01 06:28] LABS: ALBUMIN 1.8 GM/DL (3.2-5.2); ALBUMIN/GLOBULIN RATIO 0.47 (1.00-1.93); ALKALINE PHOSPHATASE 125 U/L (45-117); ALT/SGPT 50 U/L (12-78); ANION GAP 7 MEQ/L (8-16); AST/SGOT 44 U/L (7-37); BILIRUBIN,TOTAL 0.6 MG/DL (0.2-1.0); BLOOD UREA NITROGEN 23 MG/DL (7-18); CALCIUM LEVEL 8.6 MG/DL (8.8-10.2); CARBON DIOXIDE LEVEL 23 MEQ/L (21-32); CHLORIDE LEVEL 106 MEQ/L (98-107); CREATININE FOR GFR 1.46 MG/DL (0.70-1.30); GLOMERULAR FILTRATION RATE 51.9 (>49); GLUCOSE, FASTING 115 MG/DL (70-100); LIPASE 294 U/L (73-393); POTASSIUM SERUM 4.5 MEQ/L (3.5-5.1); SODIUM LEVEL 136 MEQ/L (136-145); TOTAL PROTEIN 5.6 GM/DL (6.4-8.2)
[2018-05-01] MEDS: ALPRAZolam 0.25 MG TAB PO ×2 (09:20→21:00)
[2018-05-01] MEDS: HEPARIN SOD (PORCINE) 5000 UNITS/ML VIAL SQ ×2 (09:20→21:34)
[2018-05-01] MEDS: CALCITRIOL 0.25 MCG CAP (S0169) PO (09:21)
[2018-05-01] MEDS: CLOPIDOGREL 75 MG TAB PO (09:21)
[2018-05-01] MEDS: TACROLIMUS 0.5 MG CAP PO ×2 (09:21→21:34)
[2018-05-01] MEDS: predniSONE 20 MG TAB PO (09:21)
[2018-05-01] MEDS: MAGNESIUM OXIDE 400 MG TAB (MAG-OX) PO ×2 (09:21→21:34)
[2018-05-01] MEDS: LACTOBACILLUS ACIDOPHILUS CAP (BACID) PO (09:21)
[2018-05-01] MEDS: VITAMIN D 1,000 INTERNATIONAL UNITS TABLET PO (09:22)
[2018-05-01] MEDS: OMEPRAZOLE 20 MG CAP PO (09:22)
[2018-05-01] MEDS: amLODIPine 5 MG TAB PO (09:22)
[2018-05-01] MEDS: ASPIRIN 81 MG ENTERIC TAB PO (09:22)
[2018-05-01] MEDS: CARVedilol 12.5 MG TAB PO ×2 (09:22→21:34)
[2018-05-01] MEDS: TOLNAFTATE 1% CREAM 15 GM TOP ×2 (09:23→21:35)
[2018-05-01] MEDS: ERTAPENEM SODIUM 1 GM in NS MINI-BAG PLUS 50 ML IV (17:26)
[2018-05-01] MEDS: ALLOPURINOL 100 MG TAB PO (21:34)
[2018-05-02] MEDS: SLF 3 ML SYR IV ×3 (05:14→21:42)
[2018-05-02 05:55] LABS: HEMATOCRIT 31.5 % (42.0-52.0); HEMOGLOBIN 10.3 g/dl (13.5-17.5); MEAN CORPUSCULAR HEMOGLOBIN 27.5 pg (27.0-33.0); MEAN CORPUSCULAR HGB CONC 32.7 g/dl (32.0-36.5); PLATELET COUNT, AUTOMATED 207 10^3/uL (150-450); RED BLOOD COUNT 3.75 10^6/uL (4.30-6.10); RED CELL DISTRIBUTION WIDTH 14.8 % (11.5-14.5); WHITE BLOOD COUNT 5.5 10^3/uL (4.0-10.0)
[2018-05-02 06:29] LABS: ALBUMIN 1.9 GM/DL (3.2-5.2); ALBUMIN/GLOBULIN RATIO 0.53 (1.00-1.93); ALKALINE PHOSPHATASE 126 U/L (45-117); ALT/SGPT 62 U/L (12-78); ANION GAP 8 MEQ/L (8-16); AST/SGOT 56 U/L (7-37); BILIRUBIN,TOTAL 0.6 MG/DL (0.2-1.0); BLOOD UREA NITROGEN 21 MG/DL (7-18); C REACTIVE PROTEIN QUANTITATIV 8.99 MG/DL (0.00-0.30); CALCIUM LEVEL 8.4 MG/DL (8.8-10.2); CARBON DIOXIDE LEVEL 25 MEQ/L (21-32); CHLORIDE LEVEL 104 MEQ/L (98-107); CREATININE FOR GFR 1.33 MG/DL (0.70-1.30); GLOMERULAR FILTRATION RATE 57.8 (>49); GLUCOSE, FASTING 86 MG/DL (70-100); LIPASE 346 U/L (73-393); POTASSIUM SERUM 4.4 MEQ/L (3.5-5.1); SODIUM LEVEL 137 MEQ/L (136-145); TOTAL PROTEIN 5.5 GM/DL (6.4-8.2)
[2018-05-02] MEDS: CLOPIDOGREL 75 MG TAB PO (08:49)
[2018-05-02] MEDS: MAGNESIUM OXIDE 400 MG TAB (MAG-OX) PO ×2 (08:49→21:41)
[2018-05-02] MEDS: predniSONE 20 MG TAB PO (08:49)
[2018-05-02] MEDS: ASPIRIN 81 MG ENTERIC TAB PO (08:49)
[2018-05-02] MEDS: amLODIPine 5 MG TAB PO (08:52)
[2018-05-02] MEDS: TACROLIMUS 0.5 MG CAP PO ×2 (08:54→21:41)
[2018-05-02] MEDS: LACTOBACILLUS ACIDOPHILUS CAP (BACID) PO (08:54)
[2018-05-02] MEDS: CALCITRIOL 0.25 MCG CAP (S0169) PO (08:54)
[2018-05-02] MEDS: OMEPRAZOLE 20 MG CAP PO (08:54)
[2018-05-02] MEDS: CARVedilol 12.5 MG TAB PO ×2 (08:54→21:41)
[2018-05-02] MEDS: ALPRAZolam 0.25 MG TAB PO ×2 (08:54→21:41)
[2018-05-02] MEDS: HEPARIN SOD (PORCINE) 5000 UNITS/ML VIAL SQ ×2 (08:55→21:40)
[2018-05-02] MEDS: TOLNAFTATE 1% CREAM 15 GM TOP ×2 (08:55→21:42)
[2018-05-02] MEDS: VITAMIN D 1,000 INTERNATIONAL UNITS TABLET PO (08:55)
[2018-05-02] MEDS: ERTAPENEM SODIUM 1 GM in NS MINI-BAG PLUS 50 ML IV ×2 (19:02→19:50)
[2018-05-02] MEDS: ALLOPURINOL 100 MG TAB PO (21:41)
[2018-05-03 05:42] LABS: HEMATOCRIT 32.4 % (42.0-52.0); HEMOGLOBIN 10.5 g/dl (13.5-17.5); MEAN CORPUSCULAR HEMOGLOBIN 27.1 pg (27.0-33.0); MEAN CORPUSCULAR HGB CONC 32.4 g/dl (32.0-36.5); MEAN CORPUSCULAR VOLUME 83.5 fl (80.0-96.0); PLATELET COUNT, AUTOMATED 209 10^3/uL (150-450); RED BLOOD COUNT 3.88 10^6/uL (4.30-6.10); RED CELL DISTRIBUTION WIDTH 14.9 % (11.5-14.5); WHITE BLOOD COUNT 4.7 10^3/uL (4.0-10.0)
[2018-05-03] MEDS: SLF 3 ML SYR IV ×3 (06:00→21:26)
[2018-05-03 06:04] LABS: ALBUMIN 2.2 GM/DL (3.2-5.2); ALBUMIN/GLOBULIN RATIO 0.61 (1.00-1.93); ALKALINE PHOSPHATASE 124 U/L (45-117); ALT/SGPT 63 U/L (12-78); ANION GAP 7 MEQ/L (8-16); AST/SGOT 53 U/L (7-37); BILIRUBIN,TOTAL 0.6 MG/DL (0.2-1.0); BLOOD UREA NITROGEN 22 MG/DL (7-18); C REACTIVE PROTEIN QUANTITATIV 5.55 MG/DL (0.00-0.30); CALCIUM LEVEL 8.6 MG/DL (8.8-10.2); CARBON DIOXIDE LEVEL 26 MEQ/L (21-32); CHLORIDE LEVEL 104 MEQ/L (98-107); CREATININE FOR GFR 1.38 MG/DL (0.70-1.30); GLOMERULAR FILTRATION RATE 55.4 (>49); GLUCOSE, FASTING 93 MG/DL (70-100); POTASSIUM SERUM 4.3 MEQ/L (3.5-5.1); SODIUM LEVEL 137 MEQ/L (136-145); TOTAL PROTEIN 5.8 GM/DL (6.4-8.2)
[2018-05-03] MEDS ORDERED: predniSONE 5 MG TAB PO (08:00)
[2018-05-03] MEDS: MAGNESIUM OXIDE 400 MG TAB (MAG-OX) PO ×2 (09:16→20:43)
[2018-05-03] MEDS: HEPARIN SOD (PORCINE) 5000 UNITS/ML VIAL SQ ×2 (09:16→20:42)
[2018-05-03] MEDS: CARVedilol 12.5 MG TAB PO ×2 (09:16→20:43)
[2018-05-03] MEDS: CLOPIDOGREL 75 MG TAB PO (09:16)
[2018-05-03] MEDS: CALCITRIOL 0.25 MCG CAP (S0169) PO (09:17)
[2018-05-03] MEDS: VITAMIN D 1,000 INTERNATIONAL UNITS TABLET PO (09:17)
[2018-05-03] MEDS: ALPRAZolam 0.25 MG TAB PO ×2 (09:17→21:00)
[2018-05-03] MEDS: TACROLIMUS 0.5 MG CAP PO ×2 (09:17→20:42)
[2018-05-03] MEDS: predniSONE 5 MG TAB PO (09:17)
[2018-05-03] MEDS: OMEPRAZOLE 20 MG CAP PO (09:17)
[2018-05-03] MEDS: amLODIPine 5 MG TAB PO (09:18)
[2018-05-03] MEDS: ASPIRIN 81 MG ENTERIC TAB PO (09:18)
[2018-05-03] MEDS: LACTOBACILLUS ACIDOPHILUS CAP (BACID) PO (09:20)
[2018-05-03] MEDS: TOLNAFTATE 1% CREAM 15 GM TOP ×2 (09:20→21:00)
[2018-05-03] MEDS: FLUBLOK(EGG FREE)(QUAD)INFLUENZA VACC 0.5ML SYRINGE (90682)18YRS&OLDER IM (14:38)
[2018-05-03] MEDS: ERTAPENEM SODIUM 1 GM in NS MINI-BAG PLUS 50 ML IV (17:26)
[2018-05-03] MEDS: ACETAMINOPHEN 325 MG TAB PO (20:42)
[2018-05-03] MEDS: ALLOPURINOL 100 MG TAB PO (20:42)
[2018-05-04] MEDS: SLF 3 ML SYR IV ×2 (06:00→14:00)
[2018-05-04 07:01] LABS: HEMATOCRIT 31.8 % (42.0-52.0); HEMOGLOBIN 10.5 g/dl (13.5-17.5); MEAN CORPUSCULAR HEMOGLOBIN 27.4 pg (27.0-33.0); PLATELET COUNT, AUTOMATED 237 10^3/uL (150-450); RED BLOOD COUNT 3.83 10^6/uL (4.30-6.10); RED CELL DISTRIBUTION WIDTH 14.9 % (11.5-14.5); WHITE BLOOD COUNT 5.5 10^3/uL (4.0-10.0)
[2018-05-04 07:25] LABS: ALBUMIN 2.2 GM/DL (3.2-5.2); ALBUMIN/GLOBULIN RATIO 0.61 (1.00-1.93); ALKALINE PHOSPHATASE 122 U/L (45-117); ALT/SGPT 64 U/L (12-78); ANION GAP 8 MEQ/L (8-16); AST/SGOT 47 U/L (7-37); BILIRUBIN,TOTAL 0.5 MG/DL (0.2-1.0); BLOOD UREA NITROGEN 20 MG/DL (7-18); C REACTIVE PROTEIN QUANTITATIV 3.01 MG/DL (0.00-0.30); CALCIUM LEVEL 8.6 MG/DL (8.8-10.2); CARBON DIOXIDE LEVEL 25 MEQ/L (21-32); CHLORIDE LEVEL 104 MEQ/L (98-107); CREATININE FOR GFR 1.39 MG/DL (0.70-1.30); GLOMERULAR FILTRATION RATE 54.9 (>49); GLUCOSE, FASTING 82 MG/DL (70-100); POTASSIUM SERUM 4.1 MEQ/L (3.5-5.1); SODIUM LEVEL 137 MEQ/L (136-145); TOTAL PROTEIN 5.8 GM/DL (6.4-8.2)
[2018-05-04] MEDS: TOLNAFTATE 1% CREAM 15 GM TOP (09:00)
[2018-05-04] MEDS: CALCITRIOL 0.25 MCG CAP (S0169) PO (09:41)
[2018-05-04] MEDS: ALPRAZolam 0.25 MG TAB PO (09:41)
[2018-05-04] MEDS: ASPIRIN 81 MG ENTERIC TAB PO (09:41)
[2018-05-04] MEDS: CLOPIDOGREL 75 MG TAB PO (09:42)
[2018-05-04] MEDS: amLODIPine 5 MG TAB PO (09:42)
[2018-05-04] MEDS: predniSONE 5 MG TAB PO (09:42)
[2018-05-04] MEDS: MAGNESIUM OXIDE 400 MG TAB (MAG-OX) PO (09:42)
[2018-05-04] MEDS: LACTOBACILLUS ACIDOPHILUS CAP (BACID) PO (09:42)
[2018-05-04] MEDS: OMEPRAZOLE 20 MG CAP PO (09:42)
[2018-05-04] MEDS: VITAMIN D 1,000 INTERNATIONAL UNITS TABLET PO (09:42)
[2018-05-04] MEDS: HEPARIN SOD (PORCINE) 5000 UNITS/ML VIAL SQ (09:44)
[2018-05-04] MEDS: CARVedilol 12.5 MG TAB PO (09:44)
[2018-05-04] MEDS: TACROLIMUS 0.5 MG CAP PO (09:44)
[2018-05-06] MEDS ORDERED: predniSONE 10 MG TAB PO (09:00)
[2018-05-09] MEDS ORDERED: predniSONE 5 MG TAB PO (09:00)
== END 2018-05-04 14:20 | disposition home or self-care (01) | DRG 871 ==
LOC: M MS4PR 05-03 09:43 → M ED 11:54 → M ED INP 13:55 → M PCU 15:48
PROC: 0F798DZ Dilation of Common Bile Duct with Intraluminal Device, Via Natural or Artificial Opening Endoscopic (ICD-10-PCS; principal; 2018-04-24 07:30)
DX: A41.51 Sepsis due to Escherichia coli [E. coli] (principal); K85.80 Other acute pancreatitis without necrosis or infection; N25.81 Secondary hyperparathyroidism of renal origin; Z94.0 Kidney transplant status; D84.9 Immunodeficiency, unspecified; K83.09 Other cholangitis; J90 Pleural effusion, not elsewhere classified; N17.9 Acute kidney failure, unspecified; R65.20 Severe sepsis without septic shock; K21.9 Gastro-esophageal reflux disease without esophagitis; N18.3 Chronic kidney disease, stage 3 (moderate); F41.9 Anxiety disorder, unspecified; I25.10 Atherosclerotic heart disease of native coronary artery without angina pectoris; M10.9 Gout, unspecified; D86.9 Sarcoidosis, unspecified; I25.2 Old myocardial infarction; Z79.899 Other long term (current) drug therapy; Z79.82 Long term (current) use of aspirin; Z88.5 Allergy status to narcotic agent; Z88.1 Allergy status to other antibiotic agents; E87.5 Hyperkalemia; Z96.612 Presence of left artificial shoulder joint; E83.42 Hypomagnesemia; Z96.642 Presence of left artificial hip joint; B35.3 Tinea pedis

== ENCOUNTER → 2018-05-11 | Outpatient (REF) | payer MEDICARE, BC ==
[2018-05-11 18:01] LABS: ALBUMIN/GLOBULIN RATIO 1.03 (1.00-1.93); ALKALINE PHOSPHATASE 142 U/L (45-117); ALT/SGPT 41 U/L (12-78); AST/SGOT 24 U/L (7-37); BILIRUBIN,DIRECT 0.3 MG/DL (0.0-0.2); BILIRUBIN,TOTAL 0.6 MG/DL (0.2-1.0); TOTAL PROTEIN 5.9 GM/DL (6.4-8.2)
== END ==
LOC: M LAB REF 17:02
DX: K81.2 Acute cholecystitis with chronic cholecystitis (principal)
CPT/HCPCS: 80076

== ENCOUNTER → 2018-07-09 | Outpatient (REF) | payer MEDICARE, BC ==
[~2018-07-09] MED LIST changes: +ALLO10TA PO; +APAP500T10 PO; +ATOR40TA75 PO; +CARV12.5 PO; +MYCO1TAB PO; +NITR4TASL SL; +OMEP20CA3 PO; +PHOS1TAB3 PO; +PLAV1TAB2 PO; +POTA50TAB PO; +PRED5PAK PO; +ROCA0.5C PO; +SIME80TA PO; +XANA0.25 PO; +[UNRECOGNIZED DRUG - CODE] TOP
== END ==
LOC: M LAB REF 19:19
PROVIDERS: ATTEND Surgery
DX: C44.622 Squamous cell carcinoma of skin of right upper limb, including shoulder (principal); C44.319 Basal cell carcinoma of skin of other parts of face

== ENCOUNTER → 2018-08-06 | Outpatient (REF) | payer MEDICARE, BC | LOC: M LAB REF 14:37 | PROVIDERS: ATTEND Surgery | DX: C44.622 Squamous cell carcinoma of skin of right upper limb, including shoulder (principal) ==

== ENCOUNTER → 2018-08-18 | Outpatient (REF) | payer MEDICARE, BC | LOC: M LAB REF 15:41 | PROVIDERS: ATTEND Surgery | DX: C44.319 Basal cell carcinoma of skin of other parts of face (principal) ==

== ENCOUNTER → 2018-09-08 | Outpatient (REF) | payer MEDICARE, BC ==
[2018-09-08 13:41] LABS: ALBUMIN 3.3 GM/DL (3.2-5.2); BILIRUBIN,DIRECT 0.2 MG/DL (0.0-0.2); BILIRUBIN,TOTAL 0.6 MG/DL (0.2-1.0); TOTAL PROTEIN 6.3 GM/DL (6.4-8.2)
== END ==
LOC: M LAB REF 13:04
PROVIDERS: ATTEND Internal Medicine Nephrology
DX: K81.2 Acute cholecystitis with chronic cholecystitis (principal)

== ENCOUNTER → 2018-10-01 | Outpatient (CLI) | payer MEDICARE, BC ==
--- NOTE | 2018-10-01 14:14 | REP ---
Clinical: Left-sided pain. Technique: Axial noncontrast images from the lung bases to the pubic symphysis with coronal and sagittal re-formations. Comparison: 04/28/2018. Findings: Lung bases demonstrate mild chronic-appearing linear fibroatelectatic changes. Pneumobilia within the liver and gas within the biliary stent is again identified and similar to prior examination. Liver, spleen, pancreas, and bilateral adrenal glands are otherwise relatively normal for noncontrast evaluation. Calcified atrophic appearance of the bilateral [place] kidneys again noted. The enteric system is without obstruction or acute inflammatory process. Normal terminal ileum and appendix identified in the right lower quadrant. Scattered colonic and sigmoid diverticula noted without acute diverticulitis. Evaluation of the pelvis demonstrates relatively normal bladder and age appropriate prostate/seminal vesicles. Transplant kidney in the left lower quadrant appears essentially stable and again includes a large lower pole cyst measuring 6.9 cm diameter and no evidence for nephrolithiasis or hydroureteronephrosis. Small fat containing inguinal hernia is again identified. Old calcified atrophic transplant kidney in the right lower quadrant is unchanged. Old trauma involving the left hip with prosthesis remains stable. No ascites. No free air. No intraperitoneal or retroperitoneal adenopathy. Atherosclerotic changes of the aorta and vasculature without aneurysm. Impression: 1. No obvious acute abdominopelvic pathology appreciated. 2. Stable pneumobilia. 3. Stable appearance to the transplant kidney in the left lower quadrant including 6.9 cm lower pole cyst. 4. Scattered colonic diverticula without acute diverticulitis. 5. Further chronic stable changes as described above. No ascites, acute focal inflammatory stranding, or adenopathy. Electronically Signed by Eder Rojas MD 10/01/2018 02:05 P
== END ==
LOC: M RAD 12:48
PROVIDERS: ATTEND Internal Medicine Nephrology
DX: K57.90 Diverticulosis of intestine, part unspecified, without perforation or abscess without bleeding (principal); N28.1 Cyst of kidney, acquired; Z94.0 Kidney transplant status

== ENCOUNTER 2018-10-11 19:51 | Inpatient (IN) | payer MEDICARE, BC ==
[~2018-10-11] VITALS: Ht 170.2 cm; Wt 81.2 kg
[~2018-10-11 19:51] MED LIST changes: -CALC0.5C OR; +CALC0.5C14 OR
[2018-10-11] MEDS ORDERED: NS 1,000 ML IV ONE (20:30)
[2018-10-11 20:37] LABS: BASO % 0.3 % (0.0-1.0); EOS % 0.4 % (0.0-3.0); HEMATOCRIT 38.5 % (42.0-52.0); HEMOGLOBIN 12.2 g/dl (13.5-17.5); LYMPH # 1.4 10^3/uL (1.5-4.5); LYMPH % 15.1 % (24.0-44.0); MEAN CORPUSCULAR HEMOGLOBIN 26.5 pg (27.0-33.0); MEAN CORPUSCULAR HGB CONC 31.7 g/dl (32.0-36.5); MEAN CORPUSCULAR VOLUME 83.7 fl (80.0-96.0); MONO # 0.8 10^3/uL (0.0-0.8); MONO % 8.9 % (0.0-5.0); NEUTROPHILS # 6.7 10^3/uL (1.8-7.7); PLATELET COUNT, AUTOMATED 135 10^3/uL (150-450); WHITE BLOOD COUNT 8.9 10^3/uL (4.0-10.0)
[2018-10-11 20:48] LABS: INR 1.15; PROTHROMBIN TIME 14.9 SECONDS (12.1-14.4)
[2018-10-11 20:49] LABS: PARTIAL THROMBOPLASTIN TIME 29.9 SECONDS (25.4-37.6)
[2018-10-11 21:09] LABS: ALBUMIN 3.6 GM/DL (3.2-5.2); BILIRUBIN,DIRECT 0.3 MG/DL (0.0-0.2); CALCIUM LEVEL 9.2 MG/DL (8.8-10.2); GLOMERULAR FILTRATION RATE 36.1 (>49); POTASSIUM SERUM 4.4 MEQ/L (3.5-5.1); TOTAL PROTEIN 6.7 GM/DL (6.4-8.2)
[2018-10-11] MEDS ORDERED: ISOVUE-370 76% 100ML VIAL (Q9967) As Ordered ONE (21:15)
[2018-10-11] MEDS: GASTROGRAFIN SOLUTION 30ML PO SCH ×2 (21:33→22:05)
--- NOTE | 2018-10-11 23:59 | REPVR ---
EXAM: CT Abdomen and Pelvis Without Contrast EXAM DATE/TIME: 10/11/2018 10:49 PM CLINICAL HISTORY: 62 years old, male; Pain; Abdominal pain; Additional info: Abd pain TECHNIQUE: Imaging protocol: Axial computed tomography images of the abdomen and pelvis without contrast. Coronal and sagittal reformatted images were created and reviewed. Radiation optimization: All CT scans at this facility use at least one of these dose optimization techniques: automated exposure control; mA and/or kV adjustment per patient size (includes targeted exams where dose is matched to clinical indication); or iterative reconstruction. COMPARISON: CT ABD PELVIS W/O CONTRAST 10/01/2018 1:55 PM FINDINGS: Lower thorax: Minimal bibasilar fibro-atelectatic change, greatest in the left lower lobe. Coronary artery calcifications are present. ABDOMEN: Liver: Normal. No mass. Gallbladder and bile ducts: Pneumobilia with rigid biliary stent in the distal CBD. Status post cholecystectomy. Pancreas: Normal. No ductal dilation. Spleen: Normal. No splenomegaly. Adrenals: Normal. No mass. Kidneys and ureters: Very atrophic kidneys with calcifications. Left pelvic transplant kidney with renal cyst measuring 6.4 cm. No hydronephrosis. Stomach and bowel: Sigmoid diverticulosis without diverticulitis. Appendix: A normal appendix is seen with an intraluminal density or appendicolith. PELVIS: Bladder: Unremarkable as visualized. Reproductive: Unremarkable as visualized. ABDOMEN and PELVIS: Intraperitoneal space: Normal. No free air. No significant fluid collection. Bones/joints: Left hip prosthesis in position. Soft tissues: Small fat filled right inguinal hernia. Vasculature: Incidental note of an atrophic retroaortic left renal vein. There is minimal atherosclerotic calcification of the abdominal aorta. Lymph nodes: Normal. No enlarged lymph nodes. IMPRESSION: 1. There has been little change from 10/01/2017. No acute interval process is identified. 2. Pneumobilia with biliary stent. 3. Atrophic kidneys with left pelvic transplant kidney which demonstrates a cyst. No hydronephrosis. 4. Status post cholecystectomy. 5. Sigmoid diverticulosis without diverticulitis. Electronically signed by: Alvino Arellano On 10/11/2018 23:59:33 PM
[2018-10-12] MEDS ORDERED: NITROGLYCERIN 0.4 MG SUBL TABLET SL PRN (01:15)
[2018-10-12] MEDS ORDERED: ACETAMINOPHEN TAB 650MG DOSE (2X325MG) PO PRN (01:15)
--- NOTE | 2018-10-12 01:26 | HPEPDOC ---
[facility] Medical History & Physical Date of Admission Oct 12, 2018 Primary Care Physician: Janice Giles MD History and Physical CHIEF COMPLAINT: Abdominal pain HISTORY OF PRESENT ILLNESS: Patient is a 62-year-old male with past medical history of congenital kidney deformity status post kidney transplant 2, CKD, HTN, sarcoidosis, secondary hyperparathyroidism, coronary artery disease s/p stent placement, diverticulitis presented to the ER with complaints of abdominal pain. He stated that his pain was initiated a left groin and has had a CT scan done of the abdomen with Dr. Giles which was normal and had improved however now start to develop generalized abdominal pain again with no other associated symptoms including fever, chills, nausea vomiting, or diarrhea. He stated that his abdominal pain is improved a lot since coming into the ER and is comfortable now. He was found to have elevated creatinine of 2.0. ER had discuss with Dr. Giles and wants patient admitted for treatment of AZUCENA and evaluation for pos sible recurrence of transplant failure. PAST MEDICAL HISTORY: 1. 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 2. Hypertension. 3. Sarcoidosis. 4. CKD Stage 3. 5. CAD and [place] s/p stents placement 6. Secondary hyperparathyroidism 7. hx Diverticulitis 8. Hx cholangitis PAST SURGICAL HISTORY: 1. Kidney transplant 2. 2. Fistula creation. 3. Left shoulder repair. 4. Cardiac stent placement. SOCIAL HISTORY: Denies tobacco, alcohol or illicit drug use. FAMILY HISTORY: Unknown patient was adopted. ALLERGIES: Please see below. REVIEW OF SYSTEMS: 10 point review of system negative except as stated in HPI HOME MEDICATIONS: Please see below. PHYSICAL EXAMINATION: General: No acute distress, Alert Eyes: Normal sclera, EOMI, CHAZ HENT: Atraumatic, neck supple, moist mucous membranes Cardiovascular: Normal rate, normal rhythm. No murmurs appreciated. Pulmonary: Clear to auscultation b/l, no wheezing GI: Soft, mild generalized tenderness to palpation. No rebound tenderness, previous surgical scars noted. Skin: Warm and dry Neuro: CN grossly intact. No focal deficits. Strengths equal b/l. Psych: oriented x 3 LABORATORY DATA: See below. IMAGING: Abdominal CT- IMPRESSION: 1. There has been little change from 10/01/2017. No acute interval process is identified. 2. Pneumobilia with biliary stent. 3. Atrophic kidneys with left pelvic transplant kidney which demonstrates a cyst. No hydronephrosis. 4. Status post cholecystectomy. 5. Sigmoid diverticulosis without diverticulitis. MICROBIOLOGY: Please see below. ASSESSMENT AND PLAN: 1. Abdominal pain - CT scan with no significant findings including diverticulitis. - Patient afebrile with no clinical evidence of infection. - Concern for possible kidney transplant failure. Discussed with Nephro Dr. Giles in ER, will evaluate in AM. - Symptom had improved since presentation. - Pain management. 2. AZUCENA on CKD - IVF support. Cr 2.0 today. - Baseline around 1.4 previously. - repeat AM BMP 3. HTN - resume home medications 4. Congenital kidney disease s/p transplants x2 - Concern for repeat failure. - For nephro eval in AM. - c/w home immunosupressive medications. 5. Chronic conditions including Sarcoidosis, hyper PTH. - Resume home meds. Patient is high risk due to abdominal pain concerning for possible transplant failure. Estimated length of stay 2-4 days with expected disposition to home. Vital Signs Vital Signs Date Time Temp Pulse Resp B/P (MAP) Pulse Ox O2 Delivery O2 Flow Rate FiO2 10/11/18 20:13 10/11/18 19:52 98.1 73 18 97 Room Air Laboratory Data Labs 24H Laboratory Tests 2 10/11/18 20:27: Immature Granulocyte % (Auto) 0.3, White Blood Count 8.9, Red Blood Count 4.60, Hemoglobin 12.2L, Hematocrit 38.5L, Mean Corpuscular Volume 83.7, Mean Corpuscular Hemoglobin 26.5L, Mean Corpuscular Hemoglobin Concent 31.7L, Red Cell Distribution Width 15.3H, Platelet Count 135L, Neutrophils (%) (Auto) 75.0H, Lymphocytes (%) (Auto) 15.1L, Monocytes (%) (Auto) 8.9H, Eosinophils (%) (Auto) 0.4, Basophils (%) (Auto) 0.3, Neutrophils # (Auto) 6.7, Lymphocytes # (Auto) 1.4L, Monocytes # (Auto) 0.8, Eosinophils # (Auto) 0.0, Basophils # (Auto) 0.0, Nucleated Red Blood Cells % (auto) 0.0, Prothrombin Time 14.9H, Prothromb Time International Ratio 1.15, Activated Partial Thromboplast Time 29.9, Anion Gap 8, Glomerular Filtration Rate 36.1L, Calcium Level 9.2, Aspartate Amino Transf (AST/SGOT) 13, Alanine Aminotransferase (ALT/SGPT) 15, Alkaline Phosphatase 90, Total Bilirubin 1.0, Direct Bilirubin 0.3H, Total Protein 6.7, Albumin 3.6, Albumin/Globulin Ratio 1.16, Lipase 81 10/11/18 20:41: Urine Color YELLOW, Urine Appearance CLEAR, Urine pH 5.0, Urine Specific [place] 1.018, Urine Protein 2+H, Urine Glucose (UA) NEGATIVE, Urine Ketones NEGATIVE, Urine Blood NEGATIVE, Urine Nitrite NEGATIVE, Urine Bilirubin NEGATIVE, Urine Urobilinogen 0.2, Urine Leukocyte Esterase NEGATIVE, Urine WBC (Auto) 4H, Urine RBC (Auto) 7H, Urine Hyaline Casts (Auto) 0, Urine Bacteria (Auto) NEGATIVE, Urine Squamous Epithelial Cells 0, Urine Mucus (Auto) SMALL, Urine Sperm (Auto) CBC/BMP Laboratory Tests 10/11/18 20:27 Red Blood Count 4.60, Mean Corpuscular Volume 83.7, Mean Corpuscular Hemoglobin 26.5 L, Mean Corpuscular Hemoglobin Concent 31.7 L, Red Cell Distribution Width 15.3 H, Neutrophils (%) (Auto) 75.0 H, Lymphocytes (%) (Auto) 15.1 L, Monocytes (%) (Auto) 8.9 H, Eosinophils (%) (Auto) 0.4, Basophils (%) (Auto) 0.3, Neutrophils # (Auto) 6.7, Lymphocytes # (Auto) 1.4 L, Monocytes # (Auto) 0.8, Eosinophils # (Auto) 0.0, Basophils # (Auto) 0.0 Home Medications Scheduled (Mycophenolic Acid Dr) 180 Mg Tab, 180 MG PO BID Allopurinol (Allopurinol) 100 Mg Tab, 100 MG PO QHS Alprazolam (Xanax) 0.25 Mg Tab, 0.125 MG PO BID Amlodipine Besylate (Norvasc) 5 Mg Tab, 5 MG PO QHS Aspirin (Aspir-81) 81 Mg Tab, 81 MG PO DAILY Atorvastatin Calcium (Atorvastatin Calcium) 40 Mg Tab, 40 MG PO QHS Calcitriol (Rocaltrol) 0.5 Mcg Cap, 0.5 MCG PO DAILY Carvedilol (Carvedilol) 12.5 Mg Tab, 12.5 MG PO BID Clopidogrel Bisulfate (Plavix) 75 Mg Tab, 75 MG PO DAILY Magnesium Oxide (Magnesium) 500 Mg Tab, 500 MG PO BID Omeprazole (Omeprazole) 20 Mg Cap, 20 MG PO DAILY Prednisone (Prednisone) 5 Mg Tab, 5 MG PO DAILY Tacrolimus (Prograf) 0.5 Mg Cap, 0.5 MG PO BID Vitamin D (Vitamin D) 1,000 Unit Cap, 1,000 UNIT PO DAILY Scheduled PRN Acetaminophen (APAP Extra Strength) 500 Mg Tab, 500 MG PO Q4HP PRN for PAIN OR FEVER Metoclopramide HCl (Reglan) 10 Mg Tab, 10 MG PO PRN PRN for NAUSEA Nitroglycerin (Nitrostat) 0.4 Mg Subl, 0.4 MG SL Q5MP PRN for CHEST PAIN Simethicone (Simethicone) 80 Mg Chew, 80 MG PO TIDP PRN for GAS PAIN Allergies Coded Allergies: vancomycin (Verified Allergy, Unknown, confusion, 10/11/18) codeine (Verified Adverse Reaction, Unknown, N/V, 10/11/18) meperidine (Verified Adverse Reaction, Unknown, N/V, 10/11/18) morphine (Verified Adverse Reaction, Unknown, N/V, 10/11/18) oxycodone (Verified Adverse Reaction, Unknown, N/V, 10/11/18) uses zofran prior to admin SARAH VALDES MD Oct 12, 2018 01:26
[2018-10-12] MEDS ORDERED: PILL CRUSHER/CUTTER 1 EACH XX PRN (01:30)
[2018-10-12] MEDS: NS 1,000 ML IV SCH ×2 (01:31→09:51)
[2018-10-12 02:20] VITALS: BP 159/74
[2018-10-12 06:11] LABS: HEMOGLOBIN 10.5 g/dl (13.5-17.5); MEAN CORPUSCULAR HEMOGLOBIN 26.7 pg (27.0-33.0); MEAN CORPUSCULAR HGB CONC 31.8 g/dl (32.0-36.5); PLATELET COUNT, AUTOMATED 114 10^3/uL (150-450); RED BLOOD COUNT 3.93 10^6/uL (4.30-6.10); WHITE BLOOD COUNT 6.3 10^3/uL (4.0-10.0)
[2018-10-12 06:29] LABS: CALCIUM LEVEL 8.3 MG/DL (8.8-10.2); CREATININE FOR GFR 1.63 MG/DL (0.70-1.30); GLOMERULAR FILTRATION RATE 45.7 (>49); POTASSIUM SERUM 3.8 MEQ/L (3.5-5.1)
[2018-10-12 08:00] VITALS: BP 160/80
[2018-10-12] MEDS: OMEPRAZOLE 20 MG CAP PO SCH (09:47)
[2018-10-12] MEDS: CALCITRIOL 0.25 MCG CAP (S0169) PO SCH (09:47)
[2018-10-12] MEDS: predniSONE 5 MG TAB PO SCH (09:47)
[2018-10-12] MEDS: CLOPIDOGREL 75 MG TAB PO SCH (09:47)
[2018-10-12] MEDS: ASPIRIN 81 MG ENTERIC TAB PO SCH (09:47)
[2018-10-12] MEDS: CARVedilol 12.5 MG TAB PO SCH ×2 (09:48→21:43)
[2018-10-12] MEDS: MYCOPHENOLIC ACID 180 MG PO SCH ×2 (09:49→21:42)
[2018-10-12] MEDS: VITAMIN D 1,000 INTERNATIONAL UNITS TABLET PO SCH (10:01)
[2018-10-12] MEDS: TACROLIMUS 0.5 MG CAP PO SCH ×2 (10:01→21:49)
[2018-10-12] MEDS ORDERED: SLF 3 ML SYR IV PRN (10:45)
[2018-10-12] MEDS ORDERED: NS 1,000 ML IV SCH (11:00)
[2018-10-12 11:58] LABS: MAGNESIUM LEVEL 1.8 MG/DL (1.8-2.4); PHOSPHORUS LEVEL 2.3 MG/DL (2.5-4.9)
[2018-10-12 12:00] VITALS: BP 140/70
[2018-10-12] MEDS: MAGNESIUM OXIDE 400 MG TAB (MAG-OX) PO SCH ×2 (12:44→21:54)
[2018-10-12] MEDS: LR 1,000 ML IV SCH (12:44)
[2018-10-12] MEDS: ALPRAZolam 0.25 MG TAB PO PRN ×2 (12:47→21:49)
--- NOTE | 2018-10-12 13:46 | CR ---
DATE OF CONSULTATION: 10/12/2018 REQUESTING PHYSICIAN: Dr. Allie Abad CONSULTING PHYSICIAN: Dr. Cannon REASON FOR CONSULTATION: Management of acute kidney injury in this patient with renal allograft status. CHIEF COMPLAINT: Patient presented to the hospital yesterday with persistent abdominal pain. HISTORY OF PRESENT ILLNESS: Mr. Santos Leonard is a 62-year-old male with past medical history of chronic renal allograft nephropathy with a baseline creatinine of around 1.3 to 1.5, history of a diseased donor kidney transplant about 10 years ago in 2008. He was recently admitted in the hospital in April 2018, and at that time he had a very prolonged and complicated hospital course including sepsis secondary to cholangitis requiring a stent placement in the common bile duct. Postoperative course was complicated by acute pancreatitis and he also had an acute gout flare-up in his joints. He also developed acute renal failure during that hospitalization, however he did not need hemodialysis. His renal function started improving after resuscitation with fluids and treatment of cholangitis. The patient was supposed to follow-up with Dr. Moeller as an outpatient at the end of this month for possible removal of the common bile duct stent, however he is having off and on abdominal pains which are vague. Initially he had pain on the left lower quadrant of the abdomen, which is close to the transplant site. He got a CT scan done by Dr. Giles as an outpatient which did not show any evidence of diverticulitis or acute pathology in the abdomen and a few days after that he started having pain in the abdomen again. He reports that he has a cramping abdominal pain, which is usually in the epigastrium or central abdominal pain with associated nausea, no vomiting. He denies any fevers and chills. He does have decreased appetite. He arrived in the emergency room last night. He got a CT scan of the abdomen done which showed pneumobilia and the stent in the common bile duct, otherwise no acute pathology. The patient was discussed by myself with the ER physician last night and the decision was made to keep the patient in the hospital given his complicated history and he also had evidence of acute renal failure on the labs. His creatinine last night was 2. So, the patient was admitted under the hospitalist service and nephrology was called to further help in the management of acute renal failure and management of renal allograft immunosuppression. I saw and evaluated the patient today morning. He reports that his pain is better today as compared with yesterday. He was given IV fluid bolus and he is getting normal saline IV fluid hydration. His creatinine is improving today as compared with yesterday; however, he still complains of epigastric discomfort. PAST MEDICAL HISTORY: Chronic kidney disease, stage III with a baseline creatinine of around 1.3 to 1.5. Renal allograft status. This is his second renal transplant which was done 10 years ago in 2008. He had a previous kidney transplant which worked for 13 years and that was on the right side, which was removed. History of hypertension. Recent history of sepsis secondary to cholangitis. Recent acute pancreatitis in April 2018. History of polyarticular gout. Hypertension. Sarcoidosis. Coronary artery disease (CAD) and myocardial infarction status post stent placement. He is still on Plavix. He will finish Plavix on October 31, 2018. Secondary hyperparathyroidism. History of diverticulitis in the past. PAST SURGICAL HISTORY: Status post kidney transplant times two. The second transplant is on the left lower quadrant which is working at this point. Status post stent placement in the common bile duct in April 2018. Status post cardiac stent placement one year ago in October 2017. Status post right forearm atrioventricular (AV) fistula creation. History of left shoulder repair. Status post bilateral navajo nephrectomies. Status post right sided transplant nephrectomy as well. ALLERGIES: He is allergic to: 1. CODEINE. 2. MEPERIDINE. 3. MORPHINE. 4. OXYCODONE. 5. VANCOMYCIN. FAMILY HISTORY: No significant family history of end stage renal disease. He is actually adopted so he does not know his family history. SOCIAL HISTORY: He denies any smoking, illicit drug abuse or alcohol abuse. REVIEW OF SYSTEMS: CONSTITUTIONAL: Patient reports feeling weak and tired. EYES: He denies any blurry vision or double vision. ENT: He denies any dysphagia, odynophagia, or ear discharge. CARDIOVASCULAR: He denies any chest pain or palpitations. RESPIRATORY: He denies any shortness of breath or cough. GASTROINTESTINAL (GI): He report abdominal pain, nausea and decreased appetite. GENITOURINARY (): He denies any dysuria or hematuria. MUSCULOSKELETAL: He denies any muscle aches and pains. HEMATOLOGY/ONCOLOGY: He denies any easy bleeding or bruising. PSYCH: He denies any depression or anxiety. ENDOCRINE: He reports a history of secondary hyperparathyroidism. SKIN: He denies any rashes or ulcers. All other review of systems is negative. PHYSICAL EXAMINATION: GENERAL: Patient is awake, alert and oriented times three. Laying in bed, mild painful distress. VITAL SIGNS: Temperature is 98.2 degrees Fahrenheit, blood pressure is 140/70, pulse 57, respiratory rate of 17, saturating 98% on room air. HEAD/NECK: Extraocular muscles intact. Pupils equally round and reactive to light. Mucous membranes are moist. Neck is supple. There is no jugular venous distention (JVD). CARDIOVASCULAR: S1, S2. Regular rate. No edema of the bilateral lower extremities. RESPIRATORY: Chest is clear to auscultation bilaterally. Bilateral equal air entry. No rales or rhonchi. ABDOMEN: Soft. He has multiple surgical scars in the midline and periumbilical region, and right lower quadrant and left lower quadrant. He has a renal allograft in the left lower quadrant. There is no tenderness at the renal allograft site and there is no bruit. Patient is severely tender in the epigastric region with rebound tenderness. MUSCULOSKELETAL: No clubbing or cyanosis. Pulses are 2+. He has a right forearm AV fistula, which is still working. TANK BOTTOM ASSEMBLER: No focal neurological deficit. Power is 5/5 in all extremities. PSYCH: Normal mood and affect. SKIN: No rashes or ulcers. LYMPH NODES: No significant cervical, axillary or inguinal lymphadenopathy. LAB REVIEW: CBC showed a WBC of 6.3, hemoglobin 10.5, platelets of 114. INR is 1.1. Urinalysis showed 2+ protein, no blood and 4 WBCs. BMP showed sodium 138, potassium 3.8, chloride 108, bicarb 25, BUN 24, creatinine is 1.6, it was 2 yesterday, calcium is 8.3, phosphorous is 2.3, magnesium is 1.8, amylase is 38, lipase is 79. Tacrolimus level is pending. IMAGING: A CT scan of the abdomen and pelvis was done yesterday with by mouth contrast only and it showed no acute interval process, pneumobilia with biliary stent. CURRENT INPATIENT MEDICATIONS: The patient's medications were all reviewed by me. He was on: - normal saline at 125 mL/hour. I have changed that to Ringer's Lactate at 60 mL/hour. - Tylenol as needed - allopurinol 200 mg by mouth daily - Xanax as needed for anxiety - amlodipine 5 mg daily - aspirin 81 mg daily - Lipitor 40 mg at bedtime - calcitriol 0.5 mcg by mouth daily - Coreg 12.5 mg by mouth twice a day - Plavix 75 mg by mouth daily - magnesium 400 mg by mouth twice a day - omeprazole 20 mg by mouth daily - prednisone 5 mg by mouth daily - mycophenolic acid 180 mg by mouth twice a day - tacrolimus 0.5 mg by mouth twice a day - vitamin D 1000 units by mouth daily ASSESSMENT: 62-year-old male with history of renal allograft nephropathy renal allograft status, hypertension, history of cholangitis and common bile duct stent in the past, admitted with this with epigastric abdominal pain and acute renal failure superimposed to chronic kidney disease stage III. PLAN: 1. Acute kidney injury of renal allograft. The patient came in with dehydration . He was given IV fluids. His creatinine on admission was 2, his renal function is nicely improving with a creatinine of 1.6 today morning. Because of abdominal pain, I am going to continue the IV fluids, but I am switching the IV fluids to Ringer's Lactate. 2. Renal allograft status. I am going to do the ultrasound of the renal allograft. CT scan did not show any acute pathology in the allograft. Continue current dose of tacrolimus, mycophenolic acid and prednisone. 3. Abdominal pain. CT scan did not show any evidence of diverticulitis or pancreatitis; however, the patient has a history of stent in the common bile duct. His amylase and lipase levels are normal. I am going to switch his diet to liquid diet only. I am going to get GI on board on as well because was supposed to see GI anyways at the end of the month for possible removal of the common bile duct stent. No need of antibiotics at this point. The patient says that he does not want any pain medications at this point. 4. Hypertension. Continue home dose of amlodipine 5 mg by mouth daily, Coreg 12.5 mg by mouth twice a day. 5. Coronary artery disease (CAD). History of coronary artery stent. Continue home dose of aspirin 81 mg daily and Plavix 75 mg by mouth daily. The patient says that his Plavix will be stopped on October 31, 2018. Continue home dose of Lipitor 40 mg by mouth daily. 6. Secondary hyperparathyroidism. Continue current dose of calcitriol 0.5 mcg by mouth daily. 7. Chronic gout secondary to chronic kidney disease. Continue current dose of allopurinol 200 mg by mouth daily. Thank you for involving me in the care of this patient. I shall be happy to follow the patient tomorrow morning. Plan of care was also discussed with the hospitalist team, Dr. Austen Winkler today morning. Edited 10/12/2018 @ 1404 [facility]
[2018-10-12] MEDS: SLF 3 ML SYR IV SCH ×2 (14:00→22:00)
[2018-10-12] MEDS ORDERED: PERCOCET 5MG/325MG TAB PO PRN (15:15)
--- NOTE | 2018-10-12 15:42 | REP ---
Transplant kidney ultrasound: History: Mid abdominal pain. Transplant surgery in 2008. Findings: There is a 6.5 x 6.0 x 6.4 cm cyst at the lower pole. There is a 0.8 cm cyst at mid pole level. Transplant kidney is in the left iliac fossa. There is no evidence of hydronephrosis. There is an extrarenal pelvis configuration. The kidney measures 13.9 x 6.5 x 7.4 cm in overall dimension for a calculated volume of 349.7 ml. Doppler velocity chart: Iliac artery pre and anastomosis 135 cm/sec peak systolic velocity Iliac artery post anastomosis 90.4 cm/S Main renal artery at the anastomoses 153 cm/sec Mid main renal arteries 64.8 cm/sec At the renal hilus, 57.7 cm/sec Main renal artery to external iliac artery peak systolic flow ratio normal 1.13 Main renal vein flow velocity 49.6 cm/sec Resistive indices are measured in the upper mid and lower pole intralobar arteries and these values are normal. Impression: 6.5 cm cyst at the lower pole. 0.8 cm cyst at mid pole. Main renal artery flow velocity slightly elevated. No high-grade stenosis seen. No evidence of hydronephrosis. Gifford echogenicity pattern is normal. Electronically Signed by Mario Poon MD 10/12/2018 03:34 P
[2018-10-12 16:00] VITALS: BP 138/64
[2018-10-12 20:00] VITALS: BP 136/74
[2018-10-12] MEDS ORDERED: ATORVASTATIN 20 MG TAB PO SCH (21:00)
[2018-10-12] MEDS ORDERED: ALLOPURINOL 100 MG TAB PO SCH (21:00)
[2018-10-12] MEDS ORDERED: amLODIPine 5 MG TAB PO SCH (21:00)
[2018-10-13] VITALS: BP 136/83
[2018-10-13] MEDS: LR 1,000 ML IV SCH (02:50)
[2018-10-13 04:00] VITALS: BP 133/78
[2018-10-13] MEDS: SLF 3 ML SYR IV SCH ×2 (05:53→14:00)
[2018-10-13 07:04] LABS: BASO % 0.2 % (0.0-1.0); EOS # 0.1 10^3/uL (0.0-0.50); EOS % 1.8 % (0.0-3.0); HEMATOCRIT 34.8 % (42.0-52.0); LYMPH # 1.4 10^3/uL (1.5-4.5); LYMPH % 22.3 % (24.0-44.0); MEAN CORPUSCULAR HGB CONC 31.6 g/dl (32.0-36.5); MEAN CORPUSCULAR VOLUME 85.3 fl (80.0-96.0); MONO # 0.5 10^3/uL (0.0-0.8); MONO % 8.7 % (0.0-5.0); NEUTROPHILS # 4.2 10^3/uL (1.8-7.7); NEUTROPHILS % 66.4 % (36.0-66.0); PLATELET COUNT, AUTOMATED 116 10^3/uL (150-450); RED BLOOD COUNT 4.08 10^6/uL (4.30-6.10); WHITE BLOOD COUNT 6.2 10^3/uL (4.0-10.0)
[2018-10-13 07:06] LABS: ALBUMIN 3.1 GM/DL (3.2-5.2); CALCIUM LEVEL 8.2 MG/DL (8.8-10.2); CREATININE FOR GFR 1.4 MG/DL (0.70-1.30); GLOMERULAR FILTRATION RATE 54.5 (>49); PHOSPHORUS LEVEL 2.3 MG/DL (2.5-4.9); POTASSIUM SERUM 3.8 MEQ/L (3.5-5.1)
[2018-10-13 08:00] VITALS: BP 150/80
[2018-10-13 09:01] VITALS: BP 150/80
[2018-10-13] MEDS: CLOPIDOGREL 75 MG TAB PO SCH (09:01)
[2018-10-13] MEDS: OMEPRAZOLE 20 MG CAP PO SCH (09:01)
[2018-10-13] MEDS: predniSONE 5 MG TAB PO SCH (09:01)
[2018-10-13] MEDS: CARVedilol 12.5 MG TAB PO SCH (09:01)
[2018-10-13] MEDS: MAGNESIUM OXIDE 400 MG TAB (MAG-OX) PO SCH (09:01)
[2018-10-13] MEDS: VITAMIN D 1,000 INTERNATIONAL UNITS TABLET PO SCH (09:01)
[2018-10-13] MEDS: ASPIRIN 81 MG ENTERIC TAB PO SCH (09:01)
[2018-10-13] MEDS: TACROLIMUS 0.5 MG CAP PO SCH (09:01)
[2018-10-13] MEDS: CALCITRIOL 0.25 MCG CAP (S0169) PO SCH (09:01)
[2018-10-13] MEDS: MYCOPHENOLIC ACID 180 MG PO SCH (09:02)
[2018-10-13 12:00] VITALS: BP 160/78
[2018-10-13] MEDS: ALPRAZolam 0.25 MG TAB PO PRN (12:47)
--- NOTE | 2018-10-13 13:19 | IPN ---
DATE OF SERVICE: 10/13/2018 SUBJECTIVE: Patient was seen and examined at the bedside. He was sitting in the sofa. He is clinically much better today as compared with yesterday. He reports that his abdominal pain is better. He was still on intravenous (IV) fluid hydration in the morning, which I have stopped now. His diet was advanced by primary team from liquid diet to regular diet. He was able to eat his breakfast today morning. Renal function is slightly better as compared with yesterday because of IV fluid hydration. OBJECTIVE: VITAL SIGNS: Temperature is 98.6 degrees Fahrenheit, blood pressure 150/80, pulse is 75, respiratory rate of 18, saturating 95% on room air. INTAKE AND OUTPUT: Urine output recorded as 840 mL yesterday, 400 mL so far today since overnight. Weight in the bed scale is 81.2 kg. PHYSICAL EXAMINATION: GENERAL: Patient is awake, alert and oriented times three, sitting up in the sofa, no apparent distress. HEAD AND NECK EXAMINATION: Extraocular muscles intact. Pupils equally round and reactive to light. Mucous membranes are moist. Neck is supple. There is no jugular venous distention (JVD). CARDIOVASCULAR: S1, S2. Regular rate. No murmur, rub or gallop. No edema of the bilateral lower extremities. RESPIRATORY: Chest is clear to auscultation bilaterally. Bilateral equal air entry. No rales or rhonchi. ABDOMEN: Soft. Positive bowel sounds. Multiple surgical scars. No tenderness in the epigastrium today. MUSCULOSKELETAL: No clubbing or cyanosis. Pulses are 2+. CENTRAL NERVOUS SYSTEM (PHARMACY INFORMATICIST): No focal deficit. Power is 5/5 in all extremities. SKIN: No rashes or ulcers. PSYCHIATRIC: Normal mood and affect. LABORATORY REVIEW: CBC showed WBC 6.2, hemoglobin is 11, platelets are 116. BMP showed sodium 140, potassium 3.8, chloride 109, bicarbonate 25, BUN 18, creatinine is 1.4, calcium 8.2, phosphorus is 2.3, lipase is 64. CURRENT INPATIENT MEDICATIONS: Patient's medications were all reviewed by me. I have stopped the IV fluid today morning. ASSESSMENT AND PLAN: 1. Acute kidney injury of the renal allograft. Patient was dehydrated on arrival. He was given IV fluid hydration. Renal has nicely improved. Creatinine is down to 1.4, which is actually lower than his baseline. IV fluids are being stopped. 2. Renal allograft status. Continue current dose of tacrolimus, mycophenolic acid, and prednisone. 3. Abdominal pain. His CAT scan did not show any evidence of pancreatitis. However, he had severe tenderness in the epigastric region yesterday. His pain is better today. His diet is being advanced. He is tolerating the regular diet now. IV fluids have been stopped. 4. Hypertension. Continue current dose of amlodipine and Coreg. DISPOSITION: It patient is able to tolerate his breakfast and lunch today, he can be discharged home tonight and he needs to with nephrology as outpatient.
--- NOTE | 2018-10-13 15:30 | DS.PDOC ---
Discharge Summary General Date of Admission Oct 12, 2018 at 00:59 Date of Discharge 10/13/18 Primary Care Physician: Janice Giles MD Attending Physician: HILDA PONCE MD Specialist/Consultants Involve: DAVID ROCKWELL MD Discharge Summary PROCEDURES PERFORMED DURING STAY: None. ADMITTING DIAGNOSES: 1. AZUCENA abdominal pain. DISCHARGE DIAGNOSES: 1. AKIabdominal pain. COMPLICATIONS/CHIEF COMPLAINT: Abd Pain,Acute Kidney Injury,Gerd,Coronary Artery. 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 He stated that his pain was initiated a left groin and has had a CT scan done of the abdomen with Dr. Giles which was normal and had improved however now start to develop generalized abdominal pain again with no other associated symptoms including fever, chills, nausea vomiting, or diarrhea. He stated that his abdominal pain is improved a lot since coming into the ER and is comfortable now. He was found to have elevated creatinine of 2.0. ER had discuss with Dr. Giles and wants patient admitted for treatment of AZUCENA and evaluation for possible recurrence of transplant failure. PAST MEDICAL HISTORY: 1. 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 2. Hypertension. 3. Sarcoidosis. 4. CKD Stage 3. 5. CAD and IN s/p stents placement 6. Secondary hyperparathyroidism 7. hx Diverticulitis 8. Hx cholangitis PAST SURGICAL HISTORY: 1. Kidney transplant 2. 2. Fistula creation. 3. Left shoulder repair. 4. Cardiac stent placement. SOCIAL HISTORY: Denies tobacco, alcohol or illicit drug use. FAMILY HISTORY: Unknown patient was adopted. ALLERGIES: Please see below.. HOSPITAL COURSE: Patient was admitted with the diagnosis of abdominal pain. Patient previously had sepsis secondary to pancreatitis and has the biliary stent in place. Discussed with Dr. rockwell patient's BUN/creatinine improved slowly with IV hydration and was cleared by nephrology to discharge regarding his abdominal pain which slowly resolved spontaneously. I spoken with Dr. Moeller regarding abdominal pain. As patient has history of extensive pancreatitis and has the biliary stents in place. He asked me to call Dr. Molina I spoke with Dr. Molina He reviewed the chart and he doesn't think patient needs any GI inte rvention and he recommended patient to be referred back to Dr. Moeller for removal of the stent is an outpatient. Patient has started eating and is tolerated lunch well. He well and will be discharged to follow with Dr. Moeller as an outpatient. DISCHARGE MEDICATIONS: Please see below. ALLERGIES: Please see below. PHYSICAL EXAMINATION ON DISCHARGE: VITAL SIGNS: Please see below. GENERAL: no fever, no weight loss HEENT: MARLYS extraocular muscles intact NECK: Supple. Negative JVD CARDIOVASCULAR EXAMINATION: S1, S2, regular, RESPIRATORY EXAMINATION: Clear to A&P] ABDOMINAL EXAMINATION: Benign EXTREMITIES: Negative cce SKIN: NL, normal NEUROLOGICAL EXAMINATION: No focal motor or sensory deficit PSYCHIATRIC EXAMINATION: Within normal range LABORATORY DATA: Please see below. IMAGING: PROGNOSIS: ACTIVITY: As tolerated. DIET: Regular DISCHARGE PLAN: Follow up with PCP and Dr. Moeller in 2-4 weeks DISPOSITION: . DISCHARGE INSTRUCTIONS: 1. As per discharge instructions. DISCHARGE CONDITION: Stable. TIME SPENT ON DISCHARGE: Greater than 42 minutes. Vital Signs/I&Os Vital Signs Date Time Temp Pulse Resp B/P (MAP) Pulse Ox O2 Delivery O2 Flow Rate FiO2 10/13/18 12:00 97.8 57 18 160/78 (105) 96 10/12/18 01:37 Room Air I&O- Last 24 Hours up to 6 AM 10/13/18 06:00 Intake Total 2336 ml Output Total 1240 ml Balance 1096 ml Laboratory Data Labs 24H Laboratory Tests 2 10/13/18 05:18: Immature Granulocyte % (Auto) 0.6, White Blood Count 6.2, Red Blood Count 4.08L, Hemoglobin 11.0L, Hematocrit 34.8L, Mean Corpuscular Volume 85.3, Mean Corpuscular Hemoglobin 27.0, Mean Corpuscular Hemoglobin Concent 31.6L, Red Cell Distribution Width 15.3H, Platelet Count 116L, Neutrophils (%) (Auto) 66.4H, Lymphocytes (%) (Auto) 22.3L, Monocytes (%) (Auto) 8.7H, Eosinophils (%) (Auto) 1.8, Basophils (%) (Auto) 0.2, Neutrophils # (Auto) 4.2, Lymphocytes # (Auto) 1.4L, Monocytes # (Auto) 0.5, Eosinophils # (Auto) 0.1, Basophils # (Auto) 0.0, Nucleated Red Blood Cells % (auto) 0.0 10/13/18 05:24: Blood Urea Nitrogen 18, Creatinine 1.40H, Sodium Level 140, Potassium Level 3.8, Chloride Level 109H, Carbon Dioxide Level 25, Anion Gap 6L, Glomerular Filtration Rate 54.5, Calcium Level 8.2L, Phosphorus Level 2.3L, Albumin 3.1L, Lipase 64L CBC/BMP Laboratory Tests 10/13/18 05:18 Red Blood Count 4.08 L, Mean Corpuscular Volume 85.3, Mean Corpuscular Hemoglobin 27.0, Mean Corpuscular Hemoglobin Concent 31.6 L, Red Cell Distribution Width 15.3 H, Neutrophils (%) (Auto) 66.4 H, Lymphocytes (%) (Auto) 22.3 L, Monocytes (%) (Auto) 8.7 H, Eosinophils (%) (Auto) 1.8, Basophils (%) (Auto) 0.2, Neutrophils # (Auto) 4.2, Lymphocytes # (Auto) 1.4 L, Monocytes # (Auto) 0.5, Eosinophils # (Auto) 0.1, Basophils # (Auto) 0.0 10/13/18 05:24 Anion Gap 6 L Discharge Medications Scheduled Allopurinol (Allopurinol) 100 Mg Tab, 200 MG PO QHS, (Reported) Amlodipine Besylate (Norvasc) 5 Mg Tab, 5 MG PO QHS, (Reported) Aspirin (Aspir 81) 81 Mg Tab, 81 MG PO DAILY, (Reported) Atorvastatin Calcium (Atorvastatin Calcium) 40 Mg Tab, 40 MG PO QHS, (Reported) Calcitriol (Rocaltrol) 0.5 Mcg Cap, 0.5 MCG PO DAILY, (Reported) Carvedilol (Carvedilol) 12.5 Mg Tab, 12.5 MG PO BID, (Reported) Clopidogrel Bisulfate (Plavix) 75 Mg Tab, 75 MG PO DAILY, (Reported) PATIENT STATES THIS MEDICATION IS TO BE DISCONTINUED ON 10/31/18 Magnesium Oxide (Magnesium) 500 Mg Tab, 500 MG PO BID, (Reported) Mycophenolate Sodium (Mycophenolic Acid) 180 Mg Tab, 180 MG PO BID, (Reported) Omeprazole (Omeprazole) 20 Mg Cap, 20 MG PO DAILY, (Reported) Prednisone (Prednisone) 5 Mg Tab, 5 MG PO DAILY, (Reported) Tacrolimus (Prograf) 0.5 Mg Cap, 0.5 MG PO BID, (Reported) Vitamin D (Vitamin D) 1,000 Unit Cap, 1,000 UNIT PO DAILY, (Reported) Scheduled PRN Acetaminophen (Acetaminophen) 500 Mg Tab, 500 MG PO Q4HP PRN for PAIN OR FEVER, (Reported) Alprazolam (Xanax) 0.25 Mg Tab, 0.125 MG PO BID PRN for ANXIETY, (Reported) USUALLY TAKES AT 1200 AND 1800. CAN TAKE UP TO 2 WHOLE TABLETS PER DAY. Nitroglycerin (Nitrostat) 0.4 Mg Subl, 0.4 MG SL Q5MP PRN for CHEST PAIN, (Reported) Allergies Coded Allergies: vancomycin (Verified Allergy, Unknown, confusion, 10/11/18) codeine (Verified Adverse Reaction, Unknown, N/V, 10/11/18) meperidine (Verified Adverse Reaction, Unknown, N/V, 10/11/18) morphine (Verified Adverse Reaction, Unknown, N/V, 10/12/18) HAS TAKEN MORPHINE WITH ZOFRAN AND TOLERATED WELL oxycodone (Verified Adverse Reaction, Unknown, N/V, 10/11/18) uses zofran prior to admin HILDA PONCE MD Oct 13, 2018 15:30
== END 2018-10-13 16:46 | disposition home or self-care (01) | DRG 683 ==
LOC: M ED 19:51 → M ED INP 10-12 00:59 → M PCU 10-12 02:16
PROVIDERS: ADMIT Student in an Organized Health Care Education/Training Program; ATTEND Internal Medicine
DX: N17.9 Acute kidney failure, unspecified (principal); Z94.0 Kidney transplant status; I12.9 Hypertensive chronic kidney disease with stage 1 through stage 4 chronic kidney disease, or unspecified chronic kidney disease; D86.9 Sarcoidosis, unspecified; K21.9 Gastro-esophageal reflux disease without esophagitis; I25.10 Atherosclerotic heart disease of native coronary artery without angina pectoris; I25.2 Old myocardial infarction; Z95.2 Presence of prosthetic heart valve; N25.81 Secondary hyperparathyroidism of renal origin; K57.30 Diverticulosis of large intestine without perforation or abscess without bleeding; N18.3 Chronic kidney disease, stage 3 (moderate); Z79.82 Long term (current) use of aspirin; Z79.899 Other long term (current) drug therapy; Z88.5 Allergy status to narcotic agent; Z88.8 Allergy status to other drugs, medicaments and biological substances; M10.30 Gout due to renal impairment, unspecified site; R10.9 Unspecified abdominal pain

== ENCOUNTER 2018-11-09 06:02 | Day surgery (SDC) | payer MEDICARE, BC ==
[2018-11-09] VITALS (7 sets, daily range): BP systolic 140–159; BP diastolic 78–94
[~2018-11-09] VITALS: Ht 170.2 cm; Wt 84.4 kg
[~2018-11-09 06:02] MED LIST changes: -CINA30TA PO; +CINA30TA4 PO; +LIDOCAINE 1% MDV 20ML VIAL SQ PRN; +LR 1,000 ML IV ONE; +RA M500C PO; +VITA100066 PO
[2018-11-09] MEDS ORDERED: NS 1,000 ML IV ONE (07:00)
[2018-11-09 07:02] LABS: POTASSIUM SERUM 3.7 MEQ/L (3.5-5.1)
[2018-11-09] MEDS ORDERED: ISOVUE-300 61% 50ML VIAL (Q9967) As Ordered ONE (07:09)
[2018-11-09] MEDS ORDERED: ZOSYN 3.375 GM VIAL (J2543) As Ordered ONE (07:46)
[2018-11-09] MEDS ORDERED: ROCURONIUM BROMIDE 50 MG/5 ML VIAL As Ordered ONE (07:54)
[2018-11-09] MEDS ORDERED: ONDANSETRON 4MG/2ML VIAL (J2405) As Ordered ONE (07:54)
[2018-11-09] MEDS ORDERED: dexameTHASONE 4 MG/ML 1ML VIAL (J1100) As Ordered ONE (07:54)
[2018-11-09] MEDS ORDERED: MIDAZOLAM INJ 2 MG/2 ML VIAL (J2250) As Ordered ONE (07:54)
[2018-11-09] MEDS ORDERED: PROPOFOL 200 MG/20 ML VIAL As Ordered ONE (07:54)
[2018-11-09] MEDS ORDERED: LIDOCAINE 2% INJ 100 MG/5 ML SDV (FOR ANES.) As Ordered ONE (07:54)
[2018-11-09] MEDS ORDERED: fentaNYL 250 MCG/5 ML INJECTION (J3010) As Ordered ONE (07:54)
[2018-11-09] MEDS ORDERED: SUGAMMADEX SODIUM 500 MG/5 ML VIAL (BRIDION) As Ordered ONE (08:09)
[2018-11-09] MEDS ORDERED: ePHEDrine SULFATE 25 MG/5 ML(5MG/ML) SYRINGE As Ordered ONE ×3 (08:09→09:20)
[2018-11-09] MEDS: CALCITRIOL 0.25 MCG CAP (S0169) PO SCH (09:00)
[2018-11-09] MEDS: VITAMIN D 1,000 INTERNATIONAL UNITS TABLET PO SCH (09:00)
[2018-11-09] MEDS: ASPIRIN 81 MG ENTERIC TAB PO SCH (09:00)
[2018-11-09] MEDS: LR 1,000 ML IV SCH ×2 (10:28→19:54)
--- NOTE | 2018-11-09 10:43 | REP ---
C-ARM VIEWS DURING ERCP AND STENT PLACEMENT: Images during ERCP show placement of the wire into the common bile duct. A stent is in place and is remove and is replaced by a new stent. Contrast partially opacifies the biliary system. 5 minutes , 18 seconds of fluoroscopy time utilized. Electronically Signed by Mateo Pappas MD 11/10/2018 10:12 A
[2018-11-09] MEDS ORDERED: ONDANSETRON 4MG/2ML VIAL (J2405) IV PRN (11:00)
[2018-11-09] MEDS ORDERED: NORCO, ANEXSIA 5/325MG TABLET (HYDROcodone/ACETAMINOPHEN) PO PRN (11:00)
[2018-11-09] MEDS ORDERED: LR 1,000 ML IV SCH (11:00)
[2018-11-09] MEDS ORDERED: fentaNYL 100 MCG/2 ML INJECTION (J3010) IV PRN (11:00)
--- NOTE | 2018-11-09 11:27 | REP ---
ABDOMINAL SERIES: Cross-table lateral and supine films of the abdomen and pelvis are performed status post ERCP. There may be foci of free air in the right upper quadrant. Stent is seen in the region of the common bile duct. Bowel gas pattern is nonobstructive. Multiple metallic clips are seen in the upper abdomen. Several metallic clips are also seen more inferiorly. There is a metallic prosthesis of the left hip. IMPRESSION: Biliary stent noted. Possible foci of free air in the right upper quadrant. Findings were discussed with Dr. Moeller at the time of the exam at approximately 11 a.m., 11/09/2018. Electronically Signed by Mateo Pappas MD 11/10/2018 03:03 P
--- NOTE | 2018-11-09 11:49 | ROOR ---
Patient Name: Santso Leonard Procedure Date: 11/09/2018 7:15 AM Date of : 1955 Age: 62 Room: [facility] Gender: Male Note Status: Finalized Procedure: ERCP + Papillotomy + Balloon Sweep + Stent Exchange Indications: Biliary stent removal Providers: Pramod Moeller MD Referring MD: Janice Giles MD Requesting Provider: Medicines: General Anesthesia Complications: No immediate complications. Procedure: Pre-Anesthesia Assessment: - The heart rate, respiratory rate, oxygen saturations, blood pressure, adequacy of pulmonary ventilation, and response to care were monitored throughout the procedure. The Duodenoscope was introduced through the mouth, and advanced to the duodenum and used to inject contrast into the bile duct. The ERCP was accomplished without difficulty. The patient tolerated the procedure well. Findings: The upper GI tract was traversed under direct vision without detailed examination. The major papilla was normal. The major papilla was located entirely within a diverticulum. There was no stent seen emerging from the major papilla. The bile duct was deeply cannulated with the short-nosed traction sphincterotome. Contrast was injected. I personally interpreted the bile duct images. Ductal flow of contrast was adequate. Image quality was adequate. Contrast extended to the bifurcation. A short 0.035 inch Soft Jagwire was passed into the biliary tree. Biliary sphincterotomy was made with a monofilament traction (standard) sphincterotome using ERBE electrocautery. There was no post-sphincterotomy bleeding. One stent which had been placed through the major papilla into the common bile duct was no longer visible. It had migrated into the duct. The biliary tree contained one metal stent. This was found to be totally occluded. The stent was removed using a rat-toothed forceps. A 10 Fr by 6 cm stent was placed into the biliary tree. Bile flowed through the stent. The stent was in good position. Impression: - The major papilla was located entirely within a diverticulum. - No biliary stent seen. - A previously placed stent had migrated into the common bile duct. - A biliary sphincterotomy was performed. - One stent was exchanged in the biliary tree. - The examination was otherwise normal. Recommendation: - Admit the patient to [facility] for a suspected complication. - The findings and recommendations were discussed with the patient's family. Pramod Moeller MD Pramod Moeller MD 11/09/2018 11:48:48 AM Electronically signed by Pramod Moeller MD Number of Addenda: 0 Note Initiated On: 11/09/2018 7:15 AM Estimated Blood Loss: Estimated blood loss: none.
--- NOTE | 2018-11-09 11:51 | HPEPDOC ---
[facility] Medical History & Physical Date of Admission November 09, 2018 History and Physical CHIEF COMPLAINT: S/P ERCP HISTORY OF PRESENT ILLNESS: 62 yo male s/p difficult ERCP/plastic stent/sweep admitted to monitor for post-procedural complications. Currently lethargic, he is s/p GA, but denies chest pain, shortness of breath, headache. Following si mple commands. PAST MEDICAL HISTORY: #CKD - s/p renal transplant x 2 #HTN #sarcoidosis #CAD/STEMI/GEOVANNY-RCA #secondary hyperparathyroidism # recent pancreatitis s/p ERCP with stent ALLERGIES: Please see below. REVIEW OF SYSTEMS: Negative except as per HPI. HOME MEDICATIONS: Please see below. PHYSICAL EXAMINATION: VITAL SIGNS: See below GENERAL APPEARANCE: lethargic, NAD, lying comfortably in bed HEENT: NC/AT, PERRL CARDIOVASCULAR: +S1S2, RRR LUNGS: CTA B/L ABDOMEN: obese, +BS, distended, minimal tender LABORATORY DATA: See below. IMAGING: CT A/P pending MICROBIOLOGY: Please see below. ASSESSMENT: 62 yo male s/p ERCP admitted to monitor for post-procedural complications #ERCP - continue to follow as per GI - GI has spoken with surgery - CT pending - follow labs #CKD - s/p renal transplant x 2 - nephrol c/s #HTN #sarcoidosis #CAD/STEMI/GEOVANNY-RCA - plavix is on hold #secondary hyperparathyroidism # recent pancreatitis s/p ERCP with stent #DVT prophylaxis - mechanical Vital Signs Vital Signs Date Time Temp Pulse Resp B/P (MAP) Pulse Ox O2 Delivery O2 Flow Rate FiO2 11/09/18 11:20 54 163/92 (115) 99 11/09/18 11:15 16 11/09/18 11:10 97 11/09/18 10:45 2 Laboratory Data CBC/BMP Laboratory Tests 11/09/18 06:33 Home Medications Scheduled Allopurinol (Allopurinol) 100 Mg Tab, 200 MG PO QHS Amlodipine Besylate (Norvasc) 5 Mg Tab, 5 MG PO QHS Aspirin (Aspir 81) 81 Mg Tab, 81 MG PO DAILY Atorvastatin Calcium (Atorvastatin Calcium) 40 Mg Tab, 40 MG PO QHS Calcitriol (Rocaltrol) 0.5 Mcg Cap, 0.5 MCG PO DAILY Carvedilol (Carvedilol) 12.5 Mg Tab, 12.5 MG PO BID Cholecalciferol (Vitamin D3) (Vitamin D3) 1,000 Unit Tablet, 1,000 UNIT PO DAILY Magnesium Oxide (Magnesium) 500 Mg Capsule, 500 MG PO ASDIRECTED 2 TABS AM 1 TAB PM Mycophenolate Sodium (Mycophenolic Acid) 180 Mg Tab, 180 MG PO BID Omeprazole (Omeprazole) 20 Mg Cap, 20 MG PO DAILY Prednisone (Prednisone) 5 Mg Tab, 5 MG PO DAILY Tacrolimus (Prograf) 0.5 Mg Cap, 0.5 MG PO BID Scheduled PRN Acetaminophen (Acetaminophen) 500 Mg Tab, 500 MG PO Q4HP PRN for PAIN OR FEVER Alprazolam (Xanax) 0.25 Mg Tab, 0.125 MG PO BID PRN for ANXIETY USUALLY TAKES AT 1200 AND 1800. CAN TAKE UP TO 2 WHOLE TABLETS PER DAY. Nitroglycerin (Nitrostat) 0.4 Mg Subl, 0.4 MG SL Q5MP PRN for CHEST PAIN Allergies Coded Allergies: vancomycin (Verified Allergy, Unknown, confusion, 11/09/18) codeine (Verified Adverse Reaction, Unknown, N/V, 11/09/18) meperidine (Verified Adverse Reaction, Unknown, N/V, 11/09/18) morphine (Verified Adverse Reaction, Unknown, N/V, 11/09/18) HAS TAKEN MORPHINE WITH ZOFRAN AND TOLERATED WELL oxycodone (Verified Adverse Reaction, Unknown, N/V, 11/09/18) uses zofran prior to admin NESS STONE MD November 09, 2018 11:51
[2018-11-09] MEDS ORDERED: ACETAMINOPHEN 500 MG TAB PO PRN (12:45)
[2018-11-09] MEDS ORDERED: NITROGLYCERIN 0.4 MG SUBL TABLET SL PRN (12:45)
[2018-11-09] MEDS: ONDANSETRON 4MG/2ML VIAL (J2405) IV PRN ×3 (13:01→22:31)
[2018-11-09] MEDS: MORPHINE 4 MG/ML 1ML VIAL/SYRINGE (J2270) IV PRN ×2 (13:02→17:55)
[2018-11-09 13:09] LABS: HEMATOCRIT 37.5 % (42.0-52.0); HEMOGLOBIN 12.1 g/dl (13.5-17.5); MEAN CORPUSCULAR HEMOGLOBIN 27.1 pg (27.0-33.0); MEAN CORPUSCULAR HGB CONC 32.3 g/dl (32.0-36.5); MEAN CORPUSCULAR VOLUME 84.1 fl (80.0-96.0); PLATELET COUNT, AUTOMATED 116 10^3/uL (150-450); RED BLOOD COUNT 4.46 10^6/uL (4.30-6.10); WHITE BLOOD COUNT 9.8 10^3/uL (4.0-10.0)
[2018-11-09] MEDS ORDERED: MAGN500T12 PO (13:09)
[2018-11-09] MEDS ORDERED: MAGN500C2 PO (13:09)
[2018-11-09] MEDS ORDERED: MYFO180T PO (13:09)
--- NOTE | 2018-11-09 13:46 | REP ---
CT ABDOMEN WITHOUT CONTRAST: CT abdomen performed without oral or IV contrast. Sagittal and coronal reconstruction images are performed. Patient is status post ERCP and the study is performed to rule out free air. Visualized lung bases demonstrate fibroatelectatic change. Moderate non-biliary air is present. I see no free intraperitoneal air. There is a biliary stent in place. Liver, spleen, adrenals and pancreas are grossly unchanged. There is severe bilateral renal atrophy. No free fluid or fluid collection is seen. IMPRESSION: No free intraperitoneal air or fluid. Extensive biliary air is again noted. There is a biliary stent in place. Electronically Signed by Mateo Pappas MD 11/10/2018 03:04 P
[2018-11-09] MEDS ORDERED: MORPHINE 4 MG/ML 1ML VIAL/SYRINGE (J2270) IV ONE (14:30)
[2018-11-09] MEDS ORDERED: ONDANSETRON 4MG/2ML VIAL (J2405) IV SCH (15:00)
[2018-11-09 15:18] LABS: ALBUMIN 3.4 GM/DL (3.2-5.2); BILIRUBIN,TOTAL 0.6 MG/DL (0.2-1.0); CALCIUM LEVEL 9.4 MG/DL (8.8-10.2); CREATININE FOR GFR 1.8 MG/DL (0.70-1.30); GLOMERULAR FILTRATION RATE 40.8 (>49); TOTAL PROTEIN 6.8 GM/DL (6.4-8.2)
[2018-11-09] MEDS ORDERED: LIDOCAINE VISCOUS 2% SOLN 15ML UDC SS STA (16:43)
[2018-11-09] MEDS ORDERED: LIDOCAINE VISCOUS 2% SOLN 15ML UDC SS PRN (16:45)
[2018-11-09 17:14] LABS: CK-MB VALUE MASS < 1.0 NG/ML (<3.6); CPK CREATINE PHOSPHOKINASE 54 U/L (39-308); MB/CK RELATIVE INDEX 1.85 (< OR =4); TROPONIN I < 0.02 NG/ML (< 0.10)
[2018-11-09] MEDS: ALPRAZolam 0.25 MG TAB PO PRN (20:24)
[2018-11-09] MEDS ORDERED: ATORVASTATIN 20 MG TAB PO SCH (21:00)
[2018-11-09] MEDS ORDERED: amLODIPine 5 MG TAB PO SCH (21:00)
[2018-11-09] MEDS ORDERED: ALLOPURINOL 100 MG TAB PO SCH (21:00)
[2018-11-09] MEDS: TACROLIMUS 0.5 MG CAP PO SCH (21:11)
[2018-11-09] MEDS: CARVedilol 12.5 MG TAB PO SCH (21:14)
[2018-11-10 02:00] VITALS: BP 160/82
[2018-11-10 05:43] LABS: BASO % 0.1 % (0.0-1.0); HEMATOCRIT 35.6 % (42.0-52.0); HEMOGLOBIN 11.4 g/dl (13.5-17.5); LYMPH # 0.6 10^3/uL (1.5-4.5); LYMPH % 6.4 % (24.0-44.0); MEAN CORPUSCULAR HEMOGLOBIN 27.1 pg (27.0-33.0); MEAN CORPUSCULAR VOLUME 84.8 fl (80.0-96.0); MONO # 0.5 10^3/uL (0.0-0.8); NEUTROPHILS # 8.2 10^3/uL (1.8-7.7); NEUTROPHILS % 87.5 % (36.0-66.0); PLATELET COUNT, AUTOMATED 112 10^3/uL (150-450); WHITE BLOOD COUNT 9.4 10^3/uL (4.0-10.0)
[2018-11-10 06:00] VITALS: BP 155/83
[2018-11-10 06:02] LABS: ALBUMIN 2.8 GM/DL (3.2-5.2); BILIRUBIN,TOTAL 0.7 MG/DL (0.2-1.0); CALCIUM LEVEL 8.2 MG/DL (8.8-10.2); CREATININE FOR GFR 1.79 MG/DL (0.70-1.30); POTASSIUM SERUM 4.3 MEQ/L (3.5-5.1); TOTAL PROTEIN 6.4 GM/DL (6.4-8.2)
[2018-11-10] MEDS: LR 1,000 ML IV SCH (08:41)
[2018-11-10] MEDS ORDERED: predniSONE 5 MG TAB PO SCH (09:00)
[2018-11-10] MEDS ORDERED: OMEPRAZOLE 20 MG CAP PO SCH (09:00)
[2018-11-10 10:41] VITALS: BP 155/83
[2018-11-10] MEDS: CARVedilol 12.5 MG TAB PO SCH (10:41)
[2018-11-10] MEDS: CALCITRIOL 0.25 MCG CAP (S0169) PO SCH (10:41)
[2018-11-10] MEDS: VITAMIN D 1,000 INTERNATIONAL UNITS TABLET PO SCH (10:41)
[2018-11-10] MEDS: TACROLIMUS 0.5 MG CAP PO SCH (10:41)
[2018-11-10] MEDS: ASPIRIN 81 MG ENTERIC TAB PO SCH (10:42)
[2018-11-10] MEDS: ALPRAZolam 0.25 MG TAB PO PRN (10:50)
[2018-11-10] MEDS ORDERED: LIDO2SO SS (15:16)
--- NOTE | 2018-11-10 16:35 | CR ---
DATE OF CONSULTATION: 11/10/2018 CONSULTATION REPORT FOR: Dr. Carlos Alberto Spaulding REASON FOR CONSULTATION: Management of chronic kidney disease (CKD) in this patient with history of renal allograft. HISTORY OF PRESENT ILLNESS: Santos Leonard is well-known to me. He is a 62-year-old male with a past medical history of donor kidney transplant times two with the most recent transplant done in 2008 with chronic allograft nephropathy, stage III with baseline creatinine around 1.7 to 2 with other comorbid conditions listed below and including hypertension, history of sarcoidosis, secondary hyperparathyroidism. The patient is admitted this time after complication following endoscopic retrograde cholangiopancreatography (ERCP) and a removal of a previously placed metal stent. The patient is seen and examined this morning. He denies any overnight complaints or issues. He has been started on a soft diet. He did receive some IV fluids overnight. Blood work showed renal function to be at his usual baseline with acceptable electrolytes. He denies any nausea, vomiting, diarrhea, or chest pain. PAST MEDICAL HISTORY: As mentioned above and includes: 1. donor kidney transplant times two, first in 1992, second in 2008. 2. Chronic allograft nephropathy, stage III with baseline creatinine 1.7 to 1.9. 3. Hypertension. 4. Gastroesophageal reflux disease (GERD). 5. Anxiety disorder. 6. History of sarcoidosis. 7. History of Clostridium (C) difficile. 8. Secondary hyperparathyroidism. 9. Immunocompromised state. 10. Hypomagnesemia. PAST SURGICAL HISTORY: 1. Status post cholecystectomy. 2. Status post endoscopic retrograde cholangiopancreatography (ERCP). 3. History of coronary artery disease with most recent cardiac stent in October 2017. 4. Status post left shoulder replacement. 5. History of right upper extremity fistula. 6. History of lung surgery for drainage of hemothorax in the past. 7. Status post donor kidney transplant times two. ALLERGIES: CODEINE, HYDROCODONE, MEPERIDINE, MORPHINE, OXYCODONE, VANCOMYCIN. FAMILY HISTORY: No family history of end-stage renal disease requiring dialysis. PERSONAL AND SOCIAL HISTORY: He is . He lives with his . There is no reported smoking, illicit drug use, or alcohol abuse. REVIEW OF SYSTEMS: CONSTITUTIONAL: He denies fevers, chills, or weakness. EYES: He denies blurring of vision or double vision. EARS, NOSE, AND THROAT (ENT): He denies dysphagia or hearing change. CARDIOVASCULAR: He denies chest pain or palpitations. He has a history of coronary artery disease. He denies edema. RESPIRATORY: He denies shortness of breath or cough. GASTROINTESTINAL (GI): He is status post endoscopic retrograde cholangiopancreatography (ERCP) yesterday. He denies nausea or vomiting. He is recently resumed on a diet. He denies diarrhea. GENITOURINARY (): He denies dysuria, hematuria, or decreased urination. MUSCULOSKELETAL: He denies any new arthralgias or myalgias. 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 PSYCHIATRIC: He has a history of anxiety. He denies depression. HEMATOLOGIC: He denies easy bruising or bleeding. He is immunosuppressed. ENDOCRINE: He reports secondary hyperparathyroidism. All other review of systems are negative. PHYSICAL EXAMINATION: VITAL SIGNS: Temperature 97.8, pulse 69, respiratory rate 20, blood pressure 155/83, saturating 97% on room air. Intake yesterday was 2.2 liters. Urine output yesterday was 1.5 liters. Weight in the bed scale today is 84.4 kg. Net positive 400 mL. GENERAL: The patient is seen sitting out of bed in the chair, relaxed, awake, alert, oriented, comfortable, smiling, in no acute distress, making jokes. Extraocular muscles are intact. The tongue is moist. NECK: Supple. The jugular veins are not elevated. CARDIOVASCULAR: S1, S2, regular rate and rhythm. No edema in the peripheries. Palpable radial pulses. LUNGS: Clear to auscultation bilaterally. No crackle, rale, or wheeze. ABDOMEN: Soft. There are bowel sounds. The right upper extremity fistula is patent with thrill and bruit. The lower extremities are negative for clubbing, cyanosis or edema. NEUROLOGIC: He is oriented times three. No focal deficits. SKIN: Normal turgor and temperature. LABORATORY DATA: White count 9.4, hemoglobin 11.4, platelets 112. Sodium 139, potassium 4.3, bicarbonate 25, BUN 24, creatinine 1.7, lipase 2700. IMAGING: CT of the abdomen and pelvis is noted and no free intraperitoneal air or fluid. There is biliary air and a biliary stent. INPATIENT MEDICATIONS: I discontinued the patient's lactated ringers. I added mycophenolic acid 180 mg by mouth twice a day. His other medications presently include: - allopurinol 200 mg by mouth at bedtime - Xanax as needed - amlodipine 5 mg by mouth at bedtime - aspirin 81 mg by mouth daily - atorvastatin 40 mg by mouth at bedtime - calcitriol 0.5 mcg by mouth daily - Coreg 12.5 mg by mouth twice a day - morphine as needed - omeprazole 20 mg by mouth daily - Zofran as needed - prednisone 5 mg by mouth daily - Prograf 0.5 mg by mouth twice a day - vitamin D 1000 units by mouth daily PROBLEMS: 1. Status post renal allograft. The patient's renal function is at his usual baseline. His creatinine is 1.7. His electrolytes are acceptable. I discontinued the IV fluids this morning. He did receive IV fluids overnight. He has been started on a soft diet which he reports he is tolerating. 2. Chronic immunosuppression. At home, the patient takes prednisone 5 mg daily, Prograf 0.5 mg by mouth twice a day, and also mycophenolic acid 180 mg by mouth twice a day. I have adjusted his inpatient immunosuppressant regimen so that it is the same as his outpatient one. 3. Hypertension. Blood pressures are acceptable. IV fluids are being discontinued. He continues on his home regimen and no changes are being made. 4. Status post endoscopic retrograde cholangiopancreatography (ERCP) with removal of the previously placed metal stent which was exchanged for a plastic stent. The patient was kept in-house to monitor for any possible post procedural complications. Defer to gastrointestinal (GI) and general surgery. Thank you for involving me in the care of Mr. Santos Leonard. I will be happy to follow him along with you.
--- NOTE | 2018-11-10 17:23 | DSES ---
DATE OF ADMISSION: 11/09/2018 DATE OF DISCHARGE: 11/10/2018 PRIMARY CARE PROVIDER: Dr. Janice Giles CONSULTANTS: 1. Senior Reliability Engineer. 2. Gastrointestinal (GI) specialist, Dr. Pramod Moeller. 3. General surgery, Dr. Duncan Cuadra. PROCEDURES: ERCP. DISCHARGE DIAGNOSES: 1. ERCP with removal of metal stent. 2. Chronic kidney disease with history of renal allograft. 3. Hypertension. 4. Gastroesophageal reflux disease. 5. Anxiety. 6. Sarcoidosis. 7. Secondary hyperparathyroidism. 8. Immunocompromised state. 9. History of coronary artery disease. 10. Pancreatitis. HOSPITALIZATION COURSE: Patient is a 62-year-old gentleman who had a difficult ERCP procedure. Patient had removal of previously placed metal stent and patient also had a papillotomy and balloon sweep and stent exchange on 11/09/2018. Due to concern for post-procedure complication, hospitalist team was called for admission. Diagnostic workup initiated. Abdominal x-ray demonstrated possible free air in the intraabdominal space and general surgery is consulted. CT scan was ordered. Due to patient's complicated renal history, nephrology is consulted. Patient is placed on observation. Repeat CT scan demonstrated no intraperitoneal or free air. Later, patient's diet is advanced without any acute complaint. On 11/10/2018, patient is medically cleared for discharge. Discussed with surgery prior to discharge. Patient does not require any interventions. Patient does need to followup closely with GI specialist in outpatient setting to schedule stent removal. Patient should followup with primary care provider in 1-2 weeks. VITAL SIGNS: On day of discharge: Showed temperature of 97.8, pulse 69, respiratory rate 20, blood pressure 155/83, pulse oximetry 97% in room air. LABORATORY DATA: On day of discharge: WBC 9.4, hemoglobin 11.4, hematocrit 35.6, platelet count 112, sodium 139, potassium 4.3, chloride 107, carbon dioxide 25, BUN 24, creatinine 1.79, GFR 41, fasting glucose 110, calcium 8.2, total bilirubin 0.7, AST 21, ALT 25, alkaline phosphatase 96, total protein 6.4, albumin 2.8, lipase 2746. IMAGING STUDIES: Abdominal x-ray demonstrated biliary stent noted. Possible foci of free air in the right upper quadrant. CT of the abdomen without contrast demonstrated no free intraperitoneal air or fluid. Extensive biliary air. Biliary stent in place. DISCHARGE MEDICATIONS: - lidocaine swish and swallow every 4 hours as needed for 5 days - Tylenol 500 mg by mouth every 4 hours as needed - allopurinol 200 mg by mouth nightly - Xanax 0.125 mg by mouth twice a day as needed - amlodipine 5 mg by mouth nightly - aspirin 81 mg by mouth daily - atorvastatin 40 mg by mouth nightly - calcitriol 0.5 mcg by mouth daily - carvedilol 12.5 mg by mouth twice a day - vitamin D3 1000 units by mouth daily - magnesium oxide 500 mg by mouth as directed - mycophenolic acid 180 mg by mouth twice a day - nitroglycerin 0.4 mg sublingual every 5 minutes as needed for chest pain - omeprazole 20 mg by mouth daily - prednisone 5 mg by mouth daily - Prograf 0.5 mg by mouth twice a day DISCHARGE INSTRUCTIONS: Discontinue lines. Discharge home. Soft diet as tolerated. Advance diet as tolerated. Activity as tolerated. Patient should followup with primary care provider in 1-2 weeks. Patient should follow with GI specialist, Dr. Moeller, in 1 week. During the procedure, patient complained about throat discomfort from frequent introduction of the scope. Lidocaine swish and swallow was given to the patient. If patient starts having worsening symptoms, patient is instructed to come to a health care provider immediately. On the day of discharge, patient tolerated a soft diet without any issues and no discomfort is noted. If patient starts to have any onset of discomfort, patient should contact a healthcare provider immediately also. DISCHARGE CONDITION: Fair. DISCHARGE TIME: Greater than 30 minutes.
[2018-11-10] MEDS ORDERED: ENTER DRUG NAME HERE (PATIENT'S OWN MED) PO SCH (21:00)
--- NOTE | 2018-11-11 00:10 | ECGEPIP ---
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 NO REMARKABLE CHANGES Electronically Signed On 11-11-2018 0:10:04 EDT by Franco Sales
== END 2018-11-10 16:05 | disposition home or self-care (01) ==
LOC: M SDC 06:02 → M MS5PR 11:50 → M SDC 11-10 16:05
PROVIDERS: ATTEND Internal Medicine Gastroenterology
DX: T85.520A Displacement of bile duct prosthesis, initial encounter (principal); Z46.59 Encounter for fitting and adjustment of other gastrointestinal appliance and device; I25.2 Old myocardial infarction; I20.9 Angina pectoris, unspecified; E21.3 Hyperparathyroidism, unspecified; I10 Essential (primary) hypertension; E05.90 Thyrotoxicosis, unspecified without thyrotoxic crisis or storm; K21.9 Gastro-esophageal reflux disease without esophagitis; D86.9 Sarcoidosis, unspecified; Z79.899 Other long term (current) drug therapy; D64.9 Anemia, unspecified; Z79.82 Long term (current) use of aspirin; Z86.73 Personal history of transient ischemic attack (TIA), and cerebral infarction without residual deficits; Z79.52 Long term (current) use of systemic steroids; Z88.1 Allergy status to other antibiotic agents; Z88.8 Allergy status to other drugs, medicaments and biological substances
CPT/HCPCS: 36415; 43276; 74019; 74150; 74330; 80053; 82550; 82553; 83690; 84484; 85025; 85027; 93005; 96361; 96372; 96374; 96375; 96376; C1876; C1887; J1100; J2250; J2270; J2405; J3010

== ENCOUNTER → 2019-01-07 | Outpatient (CLI) | payer MEDICARE, BC ==
[~2019-01-07] MED LIST changes: +LIDO2SO SS; -LIDOCAINE 1% MDV 20ML VIAL SQ PRN; -LR 1,000 ML IV ONE; +MAGN500C2 PO; +MAGN500T12 PO; -OMEP20CA3 PO; +OMEP20CA4 PO
--- NOTE | 2019-01-07 10:28 | REP ---
Clinical: Ankle pain. Technique: AP, lateral, bilateral oblique views of the right ankle. Findings: Generalized age-related degenerative changes and evidence for peripheral vascular disease noted. No acute fracture dislocation. Impression: Age-related degenerative changes. No acute fracture or dislocation. Electronically Signed by Eder Rojas MD 01/07/2019 10:20 A
--- NOTE | 2019-01-07 10:29 | REP ---
Clinical: Pain. Technique: AP and lateral views of the right tibia / fibula. Findings: Generalized age-related degenerative changes and evidence for peripheral vascular disease. No acute fracture dislocation. No subcutaneous emphysema or radiodense foreign body. Impression: Degenerative changes. Electronically Signed by Eder Rojas MD 01/07/2019 10:21 A
== END ==
LOC: M WUC 09:59
PROVIDERS: ATTEND Physician Assistant
DX: M25.571 Pain in right ankle and joints of right foot (principal)

== ENCOUNTER → 2019-02-16 | Outpatient (REF) | payer MEDICARE, BC ==
[2019-02-16 13:35] LABS: ALBUMIN 3.7 GM/DL (3.2-5.2); BILIRUBIN,DIRECT 0.2 MG/DL (0.0-0.2); BILIRUBIN,TOTAL 0.6 MG/DL (0.2-1.0); TOTAL PROTEIN 6.9 GM/DL (6.4-8.2)
== END ==
LOC: M LAB REF 13:05
PROVIDERS: ATTEND Internal Medicine Nephrology
DX: K81.2 Acute cholecystitis with chronic cholecystitis (principal)

== ENCOUNTER → 2019-03-19 | Outpatient (REF) | payer MEDICARE, BC ==
[2019-03-19 13:46] LABS: ALBUMIN 3.5 GM/DL (3.2-5.2); BILIRUBIN,DIRECT 0.2 MG/DL (0.0-0.2); BILIRUBIN,TOTAL 0.7 MG/DL (0.2-1.0); TOTAL PROTEIN 6.2 GM/DL (6.4-8.2)
== END ==
LOC: M LAB REF 13:09
PROVIDERS: ATTEND Nurse Practitioner Family
DX: Z94.0 Kidney transplant status (principal); N18.3 Chronic kidney disease, stage 3 (moderate)

== ENCOUNTER 2019-03-31 06:08 | Day surgery (SDC) | payer MEDICARE, BC ==
[~2019-03-31] VITALS: Ht 170.2 cm; Wt 78.9 kg
[~2019-03-31 06:08] MED LIST changes: +LR 1,000 ML IV ONE
[2019-03-31] MEDS ORDERED: GABA-845 PO (06:55)
[2019-03-31] MEDS ORDERED: ISOVUE-300 61% 50ML VIAL (Q9967) As Ordered ONE (07:09)
[2019-03-31] MEDS ORDERED: LIDOCAINE 2% INJ 100 MG/5 ML SDV (FOR ANES.) As Ordered ONE (07:15)
[2019-03-31] MEDS ORDERED: PROPOFOL 200 MG/20 ML VIAL As Ordered ONE (07:15)
[2019-03-31] MEDS ORDERED: ROCURONIUM BROMIDE 50 MG/5 ML VIAL As Ordered ONE ×2 (07:15→08:01)
[2019-03-31] MEDS ORDERED: fentaNYL 100 MCG/2 ML INJECTION (J3010) As Ordered ONE (07:16)
[2019-03-31] MEDS ORDERED: MIDAZOLAM INJ 2 MG/2 ML VIAL (J2250) As Ordered ONE (07:16)
[2019-03-31] MEDS ORDERED: ONDANSETRON 4MG/2ML VIAL (J2405) As Ordered ONE (08:20)
[2019-03-31] MEDS ORDERED: SUGAMMADEX SODIUM 500 MG/5 ML VIAL (BRIDION) As Ordered ONE (08:20)
[2019-03-31] MEDS ORDERED: METOCLOPRAMIDE INJ 10MG/2ML VIAL (J2765) As Ordered ONE (08:20)
--- NOTE | 2019-03-31 08:45 | REP ---
C-ARM VIEWS DURING ERCP: Multiple C-arm views performed during stent removal and catheter manipulation. The stent is removed. The common bile duct is catheterized. Contrast partially opacifies the biliary system. Balloon catheter is manipulated in the common bile duct. 3 minutes 16 seconds fluoroscopy time utilized. Electronically Signed by Mateo Pappas MD 03/31/2019 11:25 A
--- NOTE | 2019-03-31 08:46 | ROOR ---
Patient Name: Santos Leonard Procedure Date: 03/31/2019 7:17 AM Date of : 1955 Age: 63 Room: [facility] Gender: Male Note Status: Finalized Procedure: ERCP + Stent Removal + Balloon Sweep Indications: Evaluation and possible treatment of bile duct stone(s), Follow-up of bile duct stone(s), Biliary stent removal Providers: Pramod Moeller MD Referring MD: 1. No Referring Physician 1. No Referring Physician, Admin. Requesting Provider: Medicines: General Anesthesia Complications: No immediate complications. Procedure: Pre-Anesthesia Assessment: - The heart rate, respiratory rate, oxygen saturations, blood pressure, adequacy of pulmonary ventilation, and response to care were monitored throughout the procedure. The Duodenoscope was introduced through the mouth, and advanced to the duodenum and used to inject contrast into the bile duct. The ERCP was accomplished without difficulty. The patient tolerated the procedure well. Findings: The upper GI tract was traversed under direct vision without detailed examination. The major papilla was normal. The bile duct was deeply cannulated with the short-nosed traction sphincterotome. Contrast was injected. I personally interpreted the bile duct images. Ductal flow of contrast was adequate. Image quality was adequate. Contrast extended to the entire biliary tree. One stent was removed from the biliary tree using a snare. The biliary tree was swept with a 12 mm balloon starting at the bifurcation. Sludge was swept from the duct. All stones were removed. Impression: - Choledocholithiasis was found. Complete removal was accomplished by balloon extraction. - One stent was removed from the biliary tree. - The biliary tree was swept. - The examination was otherwise normal. Recommendation: - Discharge patient to home. - Continue present medications. - Return to my office in 1 month. - Watch for pancreatitis, bleeding, perforation, and cholangitis. - The findings and recommendations were discussed with the patient's family. Pramod Moeller MD Pramod Moeller MD 03/31/2019 8:45:56 AM Electronically signed by Pramod Moeller MD Number of Addenda: 0 Note Initiated On: 03/31/2019 7:17 AM Estimated Blood Loss: Estimated blood loss: none.
[2019-03-31] MEDS ORDERED: LR 1,000 ML IV SCH (09:15)
[2019-03-31] MEDS ORDERED: oxyCODONE 5MG TAB PO PRN (09:15)
[2019-03-31] MEDS ORDERED: fentaNYL 100 MCG/2 ML INJECTION (J3010) IV PRN (09:15)
[2019-03-31] MEDS ORDERED: ONDANSETRON 4MG/2ML VIAL (J2405) IV PRN (09:15)
[2019-03-31 09:35] VITALS: BP 126/63
== END 2019-03-31 10:11 | disposition home or self-care (01) ==
LOC: M SDC 06:08
PROVIDERS: ATTEND Internal Medicine Gastroenterology
DX: K80.50 Calculus of bile duct without cholangitis or cholecystitis without obstruction (principal); Z46.59 Encounter for fitting and adjustment of other gastrointestinal appliance and device; I10 Essential (primary) hypertension; I25.10 Atherosclerotic heart disease of native coronary artery without angina pectoris; I25.2 Old myocardial infarction; Z86.73 Personal history of transient ischemic attack (TIA), and cerebral infarction without residual deficits; Z98.61 Coronary angioplasty status; E78.5 Hyperlipidemia, unspecified; K57.90 Diverticulosis of intestine, part unspecified, without perforation or abscess without bleeding; M81.0 Age-related osteoporosis without current pathological fracture; Z79.52 Long term (current) use of systemic steroids; Z79.82 Long term (current) use of aspirin; K21.9 Gastro-esophageal reflux disease without esophagitis; E21.3 Hyperparathyroidism, unspecified; Z88.5 Allergy status to narcotic agent; Z88.1 Allergy status to other antibiotic agents; Z79.899 Other long term (current) drug therapy
CPT/HCPCS: 43264; 43275; 74330; J2250; J2405; J2765; J3010; Q9967

== ENCOUNTER → 2019-06-18 | Outpatient (REF) | payer MEDICARE, BC ==
[~2019-06-18] MED LIST changes: -AZIT500T2 PO; +AZIT500T5 PO; +GABA-845 PO; -LR 1,000 ML IV ONE; +OMEP-172 PO; -OMEP20CA4 PO
[2019-06-18 14:05] LABS: ALBUMIN 3.2 GM/DL (3.2-5.2); BILIRUBIN,DIRECT 0.2 MG/DL (0.0-0.2); BILIRUBIN,TOTAL 0.8 MG/DL (0.2-1.0)
== END ==
LOC: M LAB REF 13:09
PROVIDERS: ATTEND Internal Medicine Nephrology
DX: Z94.0 Kidney transplant status (principal); N18.3 Chronic kidney disease, stage 3 (moderate)

== ENCOUNTER → 2019-07-12 | Outpatient (REF) | payer MEDICARE, BC ==
[2019-07-12 14:06] LABS: ALBUMIN 3.1 GM/DL (3.2-5.2); CALCIUM LEVEL 8.9 MG/DL (8.8-10.2); CREATININE FOR GFR 1.72 MG/DL (0.70-1.30); GLOMERULAR FILTRATION RATE 42.8 (>49); MAGNESIUM LEVEL 1.9 MG/DL (1.8-2.4); PHOSPHORUS LEVEL 1.6 MG/DL (2.5-4.9); POTASSIUM SERUM 3.7 MEQ/L (3.5-5.1); URIC ACID 3.1 MG/DL (3.5-7.2)
== END ==
LOC: M LAB REF 13:15
PROVIDERS: ATTEND Internal Medicine Nephrology
DX: N18.3 Chronic kidney disease, stage 3 (moderate) (principal); Z94.0 Kidney transplant status; M10.9 Gout, unspecified

== ENCOUNTER → 2019-09-17 | Outpatient (REF) | payer MEDICARE, BC ==
[~2019-09-17] MED LIST changes: -OMEP-172 PO; +OMEP1CAP73 PO
[2019-09-17 13:38] LABS: ALBUMIN 3.5 GM/DL (3.2-5.2); BILIRUBIN,DIRECT 0.2 MG/DL (0.0-0.2); BILIRUBIN,TOTAL 0.8 MG/DL (0.2-1.0); TOTAL PROTEIN 6.4 GM/DL (6.4-8.2)
== END ==
LOC: M LAB REF 13:05
PROVIDERS: ATTEND Nurse Practitioner Family
DX: Z94.0 Kidney transplant status (principal)

== ENCOUNTER 2019-12-08 15:32 | Observation (INO) | payer MEDICARE, BC ==
[~2019-12-08] VITALS: Ht 170.2 cm; Wt 77.7 kg
[~2019-12-08 15:32] MED LIST changes: -CLON0.5T2 PO; -MAGN1CAP PO; -VITAD1000T PO
[2019-12-08] MEDS ORDERED: NS 500 ML IV ONE ×2 (16:30→18:00)
[2019-12-08 16:47] LABS: BASO % 0.4 % (0.0-1.0); EOS % 0.6 % (0.0-3.0); HEMATOCRIT 37.8 % (42.0-52.0); HEMOGLOBIN 12.6 g/dl (13.5-17.5); LYMPH # 0.9 10^3/uL (1.5-5.0); LYMPH % 13.5 % (24.0-44.0); MEAN CORPUSCULAR HEMOGLOBIN 29.6 pg (27.0-33.0); MEAN CORPUSCULAR HGB CONC 33.3 g/dl (32.0-36.5); MEAN CORPUSCULAR VOLUME 88.9 fl (80.0-96.0); MONO # 0.5 10^3/uL (0.0-0.8); MONO % 7.4 % (0.0-5.0); NEUTROPHILS # 5.2 10^3/uL (1.5-8.5); NEUTROPHILS % 77.5 % (36.0-66.0); PLATELET COUNT, AUTOMATED 129 10^3/uL (150-450); RED BLOOD COUNT 4.25 10^6/uL (4.30-6.10); WHITE BLOOD COUNT 6.8 10^3/uL (4.0-10.0)
[2019-12-08 17:04] LABS: INR 1.3; PROTHROMBIN TIME 15.9 SECONDS (11.8-14.0)
--- NOTE | 2019-12-08 17:09 | REP ---
REASON: Weakness. The technique utilized in obtaining the radiograph has magnified the cardiac silhouette and accentuated the interstitial markings. COMPARISON: 04/29/2018 There is cardiomegaly accentuated by technique, status quo. There is no change in the lung cadena. There are chronic basilar changes, right greater than left, status quo. There are no acute patchy parenchymal opacities or pleural effusions. There is no change in the osseous structures. IMPRESSION: Cardiomegaly without evidence of acute cardiopulmonary disease. Electronically Signed by Chris Owusu DO 12/08/2019 05:43 P
[2019-12-08 17:19] LABS: ALBUMIN 3.2 GM/DL (3.2-5.2); ALT/SGPT 57 U/L (12-78); BILIRUBIN,DIRECT 0.2 MG/DL (0.0-0.2); BILIRUBIN,TOTAL 0.9 MG/DL (0.2-1.0); CK-MB VALUE MASS < 1.0 NG/ML (<3.6); CPK CREATINE PHOSPHOKINASE 25 U/L (39-308); LIPASE 61 U/L (73-393); TOTAL PROTEIN 6.1 GM/DL (6.4-8.2); TROPONIN I < 0.02 NG/ML (< 0.10)
[2019-12-08] MEDS ORDERED: CLON0.5T2 PO (17:47)
[2019-12-08] MEDS ORDERED: VITAD1000T PO (17:47)
[2019-12-08] MEDS ORDERED: MAGN1CAP PO (17:47)
[2019-12-08] MEDS ORDERED: NS 1,000 ML IV SCH (18:30)
[2019-12-08] MEDS ORDERED: NITROGLYCERIN 0.4 MG SUBL TABLET SL PRN (18:45)
[2019-12-08] MEDS ORDERED: clonazePAM 0.5 MG TAB PO PRN (18:45)
--- NOTE | 2019-12-08 18:47 | HPEPDOC ---
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 Patient stated that approximately 3 days ago he had gone outside to mow his lawn. He stated that he noted feeling tired towards the end. The next day he continued to feel fatigued and started to drink plenty of water as he suspected that he may have developed a kidney injury. 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 He denies any fevers. He states he gets occasional chills however this is normal for him. He denies any other symptoms with exception to fatigue. He denies any abdominal pain, nausea, or vomiting. In the ER the patient was vitally stable. He was hypertensive at presentation. He received 1L of NS IV bolus. His labs demonstrated a Cr of 2.0 which is an inc rease from his apparent baseline of 1.4-1.7. Hospitalist service was consulted and the patient was admitted for further evaluation and management PAST MEDICAL HISTORY: 1. 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 2. Hypertension. 3. History of Sarcoidosis 4. CKD Stage 3. 5. CAD and [place] s/p stents placement 6. Secondary hyperparathyroidism PAST SURGICAL HISTORY: 1. Kidney transplant 2. 2. Fistula creation. 3. Left shoulder repair. 4. Cardiac stent placement. SOCIAL HISTORY: Patient lives at home with his . He is independent with his ADLs. He does not drink alcohol. He is a non-smoker. He denies any use of tobacco products ever. He denies any history of IV or illicit drug use FAMILY HISTORY: Patient was adopted and he does not know his family history ALLERGIES: Please see below. REVIEW OF SYSTEMS: CONSTITUTIONAL: Denies fevers, chills, unintentional weight loss or night sweats HEENT: Denies changes in vision. Denies difficulty swallowing. Denies pain on swallowing CARDIOVASCULAR: Denies chest pain. Denies palpitations or feelings of the heart racing RESPIRATORY: Denies shortness of breath. Denies coughing or wheezing GASTROINTESTINAL: Denies abdominal pain. Denies diarrhea. Denies constipation. Denies nausea or vomiting GENITOURINARY: Denies dysuria. Denies increased urgency or frequency SKIN: Denies rashes or lesions MUSCULOSKELETAL: Denies muscle pain or weakness. Admits to feeling fatigue/low energy NEUROLOGICAL: Denies changes in gait. Denies slurring of speech PSYCHIATRIC: Denies depression or anxiety ENDOCRINE: Denies heat intolerance or cold intolerance HEMATOLOGIC/LYMPHATIC: Denies easy bruising or bleeding. Denies history of DVT or PE HOME MEDICATIONS: Please see below. PHYSICAL EXAMINATION: VITAL SIGNS: Temperature 98.9, pulse 72, respiratory rate 21, blood pressure 144/88, pulse oximetry 98% on room air. GENERAL APPEARANCE: Patient is awake, alert, and oriented. He does not appear in any acute distress. Lying comfortably in bed HEENT: Atraumatic. Normocephalic. Eyes are nonicteric. Trachea is midline. CARDIOVASCULAR: Normal S1, S2. Regular rate and rhythm. Occasional ectopic beat. No clicks, rubs, or murmure LUNGS: Clear vesicular breath sounds bilaterally with good respiratory effort. No wheezes, rhonchi or rales ABDOMEN: Soft, nondistended. Nontender. Normoactive bowel sounds throughout MUSCULOSKELETAL: 5/5 Muscle strength testing in bilateral upper and lower extremities EXTREMITIES: No edema. Full and equal pulses in bilateral upper and lower extremities NEUROLOGICAL: No focal neurological deficits PSYCHIATRIC: Mood and affect appear appropriate LABORATORY DATA: See below. IMAGING: REASON: Weakness. The technique utilized in obtaining the radiograph has magnified the cardiac silhouette and accentuated the interstitial markings. COMPARISON: 04/29/2018 There is cardiomegaly accentuated by technique, status quo. There is no change in the lung cadena. There are chronic basilar changes, right greater than left, status quo. There are no acute patchy parenchymal opacities or pleural effusions. There is no change in the osseous structures. IMPRESSION: Cardiomegaly without evidence of acute cardiopulmonary disease. Electronically Signed by Chris Owusu DO 12/08/2019 05:43 P DD: Chris Owusu MD, DO 12/08/19 [id number] MICROBIOLOGY: Please see below. ASSESSMENT: Patient is a 64 year old male with a history of chronic allograft nephropathy who presented to [facility] with 3 days of fatigue and found to have an AZUCENA on CKD . PLAN: 1. Acute Kidney Injury in setting of Chronic allograft nephropathy likely 2/2 dehydration -Patient has a history of renal transplant x2. Today he presents with increase in Cr from his baseline of 1.4. He has received a total of 1L bolus in the ED. His AZUCENA is likely secondary to dehydration. Will continue IV fluids overnight. Patient is maintaining PO intake. Will likely see resolution of AZUCENA overnight -Nephrology has been consulted and will see patient in AM 2. Renal Allograft -Patient has a renal allograft. Will continue patients immunosuppressive medications 3. Hypertension -Will continue patients current home medications for hypertension 4. CAD s/p Stent placement -Continue statin, ASA 5. Secondary Hyperparathyroidism -Continue Calcitriol 6. 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 Vital Signs Vital Signs Date Time Temp Pulse Resp B/P (MAP) Pulse Ox O2 Delivery O2 Flow Rate FiO2 12/08/19 16:47 58 20 98 Room Air 12/08/19 16:46 144/88 (106) 12/08/19 15:33 98.9 Laboratory Data Labs 24H Laboratory Tests 2 12/08/19 16:25: Immature Granulocyte % (Auto) 0.6, Neutrophils (%) (Auto) 77.5H, Lymphocytes (%) (Auto) 13.5L, Monocytes (%) (Auto) 7.4H, Eosinophils (%) (Auto) 0.6, Basophils (%) (Auto) 0.4, Neutrophils # (Auto) 5.2, Lymphocytes # (Auto) 0.9L, Monocytes # (Auto) 0.5, Eosinophils # (Auto) 0.0, Basophils # (Auto) 0.0, Nucleated Red Blood Cells % (auto) 0.0, Prothrombin Time 15.9H, Prothromb Time International Ratio 1.30, Activated Partial Thromboplast Time 40.0H, Lactic Acid Level 1.0, Total Bilirubin 0.9, Direct Bilirubin 0.2, Aspartate Amino Transf (AST/SGOT) 23, Alanine Aminotransferase (ALT/SGPT) 57, Alkaline Phosphatase 136H, Total Creatine Kinase 25L, Creatine Kinase MB < 1.0, Creatine Kinase MB Relative Index 4.00, Troponin I < 0.02, Total Protein 6.1L, Albumin 3.2, Albumin/Globulin Ratio 1.1, Lipase 61L 12/08/19 16:54: POC Glucose (Misc Panel) 109H, POC Sodium (Misc Panel) 138, POC Potassium (Misc Panel) 4.4, POC Chloride (Misc Panel) 104, POC Total CO2 (Misc Panel) 25.0, POC Blood Urea Nitrogen (Misc Panel 31H, POC Ionized Calcium (Misc Panel) 4.9, POC Creatinine (Misc Panel) 2.0H, POC Hematocrit (Misc Panel) 36.0L 12/08/19 17:59: CBC/BMP Laboratory Tests 12/08/19 16:25 Microbiology Microbiology 12/08/19 Blood Culture, Received Pending 12/08/19 Blood Culture, Received Pending Home Medications Scheduled Allopurinol (Allopurinol) 100 Mg Tab, 200 MG PO QHS Amlodipine Besylate (Norvasc) 5 Mg Tab, 5 MG PO QHS Aspirin (Aspir 81) 81 Mg Tab, 81 MG PO DAILY Atorvastatin Calcium (Atorvastatin Calcium) 40 Mg Tab, 40 MG PO QHS Calcitriol (Rocaltrol) 0.5 Mcg Cap, 0.5 MCG PO DAILY Carvedilol (Carvedilol) 12.5 Mg Tab, 12.5 MG PO BID Cholecalciferol (Vitamin D3) (Vitamin D3) 1,000 Unit Tablet, 1,000 UNITS PO DAILY Magnesium Oxide (Magnesium) 500 Mg Capsule, 1,000 MG PO DAILY Magnesium Oxide (Magnesium) 500 Mg Capsule, 500 MG PO QPM Mycophenolate Sodium (Mycophenolic Acid) 180 Mg Tab, 180 MG PO BID Omeprazole (Omeprazole) 20 Mg Cap, 20 MG PO DAILY Prednisone (Prednisone) 5 Mg Tab, 5 MG PO DAILY Tacrolimus (Prograf) 0.5 Mg Cap, 0.5 MG PO BID Scheduled PRN Acetaminophen (Acetaminophen) 500 Mg Tab, 500 MG PO Q4HP PRN for PAIN OR FEVER Clonazepam (Clonazepam) 0.5 Mg Tablet, 0.5 MG PO TID PRN for ANXIETY Nitroglycerin (Nitrostat) 0.4 Mg Subl, 0.4 MG SL Q5MP PRN for CHEST PAIN Allergies Coded Allergies: codeine (Verified Adverse Reaction, Mild, N/V, 03/31/19) meperidine (Verified Adverse Reaction, Mild, N/V, 03/31/19) morphine (Verified Adverse Reaction, Mild, N/V, 03/31/19) HAS TAKEN MORPHINE WITH ZOFRAN AND TOLERATED WELL oxycodone (Verified Adverse Reaction, Mild, N/V, 03/31/19) uses zofran prior to admin vancomycin (Verified Adverse Reaction, Mild, confusion, 03/31/19) A-FIB/CHADSVASC A-FIB History Current/History of A-Fib/PAF?: No MASHA ST DO Dec 08, 2019 18:34 WILBER RIGGINS MD Dec 10, 2019 00:24
--- NOTE | 2019-12-08 19:25 | ECGEPIP ---
[facility] - ED Test Date: 2019-12-08 Pat Name: PATY CARTAGENA Department: Room: - Gender: Male Lab Intern: eliza : [id number] Requested By: Adriano Brady Order Number: [id number] Reading MD: Adriano Brady Measurements Intervals [place] Rate: 66 P: 30 WA: 159 QRS: -49 QRSD: 106 T: -9 QT: 396 QTc: 416 Interpretive Statements SINUS RHYTHM WITH FREQUENT SUPRAVENTRICULAR PREMATURE COMPLEXES IN A BIGEMINAL PATTERN PATTERN LAD LEFT ANTERIOR FASCICULAR BLOCK VOLTAGE CRITERIA FOR LVH POSSIBLE ANTERIOR MYOCARDIAL INFARCTION, OF INDETERMINATE AGE NONSPECIFIC ST T WAVE CHANGES CW 11/09/28 RATE DECREASED INCREASED ECTOPY NONSPECIFIC ST T WAVE CHANGES Electronically Signed on 12-08-2019 19:24:47 EDT by Adriano Brady
[2019-12-08 20:20] VITALS: BP 148/84
[2019-12-08] MEDS ORDERED: ATORVASTATIN 20 MG TAB PO SCH (21:00)
[2019-12-08] MEDS ORDERED: allopurinoL 100 MG TAB PO SCH (21:00)
[2019-12-08] MEDS ORDERED: amLODIPine 5 MG TAB PO SCH (21:00)
[2019-12-08] MEDS: CARVedilol 12.5 MG TAB PO SCH (21:41)
[2019-12-08] MEDS: MYCOPHENOLATE SODIUM 180 MG PO SCH (21:42)
[2019-12-08] MEDS: TACROLIMUS 0.5 MG CAP PO SCH (22:34)
[2019-12-09 06:00] VITALS: BP 134/82
[2019-12-09 06:26] LABS: HEMATOCRIT 33.2 % (42.0-52.0); MEAN CORPUSCULAR HEMOGLOBIN 29.3 pg (27.0-33.0); MEAN CORPUSCULAR HGB CONC 33.1 g/dl (32.0-36.5); MEAN CORPUSCULAR VOLUME 88.5 fl (80.0-96.0); PLATELET COUNT, AUTOMATED 111 10^3/uL (150-450); RED BLOOD COUNT 3.75 10^6/uL (4.30-6.10); WHITE BLOOD COUNT 5.4 10^3/uL (4.0-10.0)
[2019-12-09 06:48] LABS: CALCIUM LEVEL 8.7 MG/DL (8.8-10.2); CREATININE FOR GFR 1.58 MG/DL (0.70-1.30); GLOMERULAR FILTRATION RATE 47.1 (>49); POTASSIUM SERUM 3.7 MEQ/L (3.5-5.1)
[2019-12-09] MEDS ORDERED: predniSONE 5 MG TAB PO SCH (09:00)
[2019-12-09] MEDS ORDERED: CALCITRIOL 0.25 MCG CAP (S0169) PO SCH (09:00)
[2019-12-09] MEDS ORDERED: VITAMIN D 1,000 INTERNATIONAL UNITS TABLET PO SCH (09:00)
[2019-12-09] MEDS ORDERED: ASPIRIN 81 MG ENTERIC TAB PO SCH (09:00)
[2019-12-09] MEDS ORDERED: OMEPRAZOLE 20 MG CAP PO SCH (09:00)
[2019-12-09 09:33] VITALS: BP 146/83
[2019-12-09] MEDS: CARVedilol 12.5 MG TAB PO SCH (09:33)
[2019-12-09] MEDS: TACROLIMUS 0.5 MG CAP PO SCH (09:33)
[2019-12-09] MEDS: MYCOPHENOLATE SODIUM 180 MG PO SCH (11:11)
--- NOTE | 2019-12-09 17:49 | DS.PDOC ---
Discharge Summary General Date of Admission Dec 08, 2019 at 18:29 Date of Discharge 12/08/19 Attending Physician: WILBER RIGGINS MD Specialist/Consultants Involve: Janice Giles MD Discharge Summary PROCEDURES PERFORMED DURING STAY: [None]. ADMITTING DIAGNOSES: 1. Acute Kidney Injury in setting of Chronic Allograft Nephropathy 2/2 dehydration DISCHARGE DIAGNOSES: 1. Acute Kidney Injury in setting of Chronic Allograft Nephropathy 2/2 dehydration COMPLICATIONS/CHIEF COMPLAINT: Acute Kidney Injury,Hypertension. 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 Patient stated that approximately 3 days ago he had gone outside to mow his lawn. He stated that he noted feeling tired towards the end. The next day he continued to feel fatigued and started to drink plenty of water as he suspected that he may have developed a kidney injury. 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 He denies any fevers. He states he gets occasional chills however this is normal for him. He denies any other symptoms with exception to fatigue. He denies any abdominal pain, nausea, or vomiting. In the ER the patient was vitally stable. He was hypertensive at presentation. He received 1L of NS IV bolus. His labs demonstrated a Cr of 2.0 which is an increase from his apparent baseline of 1.4-1.7. Hospitalist service was consulted and the patient was admitted for further evaluation and management HOSPITAL COURSE: Overnight the patient was continued on IV fluid hydration. His repeat labs in he morning demonstrated and improvement in his AZUCENA. The patient was seen by Nephrology with recommendations to follow-up in the outpatient Nephrology clinic. Patients blood cultures were pending at the time. There was no sign of current infection and his AZUCENA was likely secondary to dehydration. Patient did have negative blood cultures. Results of preliminary blood cultures demonstrated no growth DISCHARGE MEDICATIONS: Please see below. ALLERGIES: Please see below. PHYSICAL EXAMINATION ON DISCHARGE: VITAL SIGNS: Please see below. GENERAL APPEARANCE: Patient is awake, alert, and oriented. He does not appear in any acute distress. Lying comfortably in bed HEENT: Atraumatic. Normocephalic. Eyes are nonicteric. Trachea is midline. CARDIOVASCULAR: Normal S1, S2. Regular rate and rhythm. Occasional ectopic beat. No clicks, rubs, or murmurs LUNGS: Clear vesicular breath sounds bilaterally with good respiratory effort. No wheezes, rhonchi or rales ABDOMEN: Soft, nondistended. Nontender. Normoactive bowel sounds throughout MUSCULOSKELETAL: 5/5 Muscle strength testing in bilateral upper and lower extremities EXTREMITIES: No edema. Full and equal pulses in bilateral upper and lower extremities NEUROLOGICAL: No focal neurological deficits PSYCHIATRIC: Mood and affect appear appropriate LABORATORY DATA: Please see below. IMAGING: REASON: Weakness. The technique utilized in obtaining the radiograph has magnified the cardiac silhouette and accentuated the interstitial markings. COMPARISON: 04/29/2018 There is cardiomegaly accentuated by technique, status quo. There is no change in the lung cadena. There are chronic basilar changes, right greater than left, status quo. There are no acute patchy parenchymal opacities or pleural effusions. There is no change in the osseous structures. IMPRESSION: Cardiomegaly without evidence of acute cardiopulmonary disease. Electronically Signed by Chris Owusu DO 12/08/2019 05:43 P PROGNOSIS: GOOD ACTIVITY: [As tolerated]. DIET: As tolerated DISCHARGE PLAN: Patient is to be discharged with follow-up with Nephrology outpatient. Patient is to follow-up with his PCP in 1-2 weeks. Patient to continue his current medications as prescribed. DISPOSITION: 01 Home, Self-Care. DISCHARGE CONDITION: [Stable]. TIME SPENT ON DISCHARGE: Greater than 40 minutes. Attending attestation: I evaluated and examined the patient in person; I discussed the care with Resident in detail and agree with the plan above. Vital Signs/I&Os Vital Signs Date Time Temp Pulse Resp B/P (MAP) Pulse Ox O2 Delivery O2 Flow Rate FiO2 12/09/19 09:33 63 146/83 12/09/19 06:00 98.6 20 96 12/08/19 20:20 Room Air I&O- Last 24 Hours up to 6 AM 12/09/19 05:59 Intake Total 1320 ml Output Total 700 ml Balance 620 ml Laboratory Data Labs 24H Laboratory Tests 2 12/08/19 17:59: Urine Color YELLOW, Urine Appearance CLEAR, Urine pH 6.0, Urine Specific [place] 1.012, Urine Protein 2+H, Urine Glucose (UA) NEGATIVE, Urine Ketones NEGATIVE, Urine Blood 1+H, Urine Nitrite NEGATIVE, Urine Bilirubin NEGATIVE, Urine Urobilinogen 0.2, Urine Leukocyte Esterase NEGATIVE, Urine WBC (Auto) 1, Urine RBC (Auto) 4H, Urine Hyaline Casts (Auto) 0, Urine Bacteria (Auto) NEGATIVE, Urine Squamous Epithelial Cells 0, Urine Sperm (Auto) 12/09/19 05:51: Nucleated Red Blood Cells % (auto) 0.0, Anion Gap 9, Glomerular Filtration Rate 47.1L, Calcium Level 8.7L CBC/BMP Laboratory Tests 12/09/19 05:51 Microbiology Microbiology 12/08/19 Blood Culture - Preliminary, Resulted No growth after 24 hours . All specim... 12/08/19 Blood Culture - Preliminary, Resulted No growth after 24 hours . All specim... Discharge Medications Scheduled Allopurinol (Allopurinol) 100 Mg Tab, 200 MG PO QHS, (Reported) Amlodipine Besylate (Norvasc) 5 Mg Tab, 5 MG PO QHS, (Reported) Aspirin (Aspir 81) 81 Mg Tab, 81 MG PO DAILY, (Reported) Atorvastatin Calcium (Atorvastatin Calcium) 40 Mg Tab, 40 MG PO QHS, (Reported) Calcitriol (Rocaltrol) 0.5 Mcg Cap, 0.5 MCG PO DAILY, (Reported) Carvedilol (Carvedilol) 12.5 Mg Tab, 12.5 MG PO BID, (Reported) Cholecalciferol (Vitamin D3) (Vitamin D3) 1,000 Unit Tablet, 1,000 UNITS PO DAILY, (Reported) Magnesium Oxide (Magnesium) 500 Mg Capsule, 1,000 MG PO DAILY, (Reported) Magnesium Oxide (Magnesium) 500 Mg Capsule, 500 MG PO QPM, (Reported) Mycophenolate Sodium (Mycophenolic Acid) 180 Mg Tab, 180 MG PO BID, (Reported) Omeprazole (Omeprazole) 20 Mg Cap, 20 MG PO DAILY, (Reported) Prednisone (Prednisone) 5 Mg Tab, 5 MG PO DAILY, (Reported) Tacrolimus (Prograf) 0.5 Mg Cap, 0.5 MG PO BID, (Reported) Scheduled PRN Acetaminophen (Acetaminophen) 500 Mg Tab, 500 MG PO Q4HP PRN for PAIN OR FEVER, (Reported) Clonazepam (Clonazepam) 0.5 Mg Tablet, 0.5 MG PO TID PRN for ANXIETY, (Reported) Nitroglycerin (Nitrostat) 0.4 Mg Subl, 0.4 MG SL Q5MP PRN for CHEST PAIN, (Reported) Allergies Coded Allergies: codeine (Verified Adverse Reaction, Mild, N/V, 03/31/19) meperidine (Verified Adverse Reaction, Mild, N/V, 03/31/19) morphine (Verified Adverse Reaction, Mild, N/V, 03/31/19) HAS TAKEN MORPHINE WITH ZOFRAN AND TOLERATED WELL oxycodone (Verified Adverse Reaction, Mild, N/V, 03/31/19) uses zofran prior to admin vancomycin (Verified Adverse Reaction, Mild, confusion, 03/31/19) MASHA ST DO Dec 09, 2019 17:48 WILBER RIGGINS MD Dec 10, 2019 13:28
--- NOTE | 2019-12-10 07:05 | CR ---
DATE OF CONSULTATION: 12/09/2019 CONSULTATION FOR: Dr. Henry Espinoza REASON FOR CONSULTATION: Acute kidney injury and not feeling well in this gentleman with kidney transplant. HISTORY OF PRESENT ILLNESS: Mr. Leonard is a 64-year-old gentleman with known history of end-stage renal disease, status post second kidney transplant. He had been in his usual state of health up until about a week ago. He reports that he had been feeling weak and also had shivering and chills at home. He lost his appetite and has lost about 8 pounds of weight during the last few days. He was admitted last evening with acute renal failure and further workup of his symptoms. A nephrology consultation was requested and the patient is seen this morning. PAST MEDICAL HISTORY (Significant for): 1. History of end-stage renal disease, status post kidney transplant x2. 2. Hypertension. 3. History of sarcoidosis. 4. History of chronic kidney disease stage III. 5. History of coronary artery disease with myocardial infarction ([place]), status post stent placement. 6. History of secondary hyperparathyroidism. PAST SURGICAL HISTORY (Significant for): 1. Kidney transplant x2. 2. AV fistula creation. 3. Left shoulder repair. 4. Cardiac catheterization and stent placement. PERSONAL AND SOCIAL HISTORY: The patient does not smoke. He lives with his . He has no alcohol or drug use. He is physically active. FAMILY HISTORY: Noncontributory and unremarkable. MEDICATIONS (His home medications include): - allopurinol 100 mg 2 tablets daily - amlodipine 5 mg daily - aspirin 81 mg daily - atorvastatin 40 mg daily - calcitriol 0.5 mcg daily - carvedilol 20.5 mg twice a day - vitamin D 1000 units daily - magnesium oxide 500 mg twice a day - mycophenolate 180 mg twice a day - omeprazole 20 mg daily - prednisone 5 mg daily - tacrolimus 0.5 mg twice a day - clonazepam 0.5 mg p.r.n. for anxiety - nitroglycerin 0.4 mg p.r.n. chest pain ALLERGIES: He has allergy to CODEINE, MEPERIDINE and MORPHINE. REVIEW OF SYSTEMS: The patient had chills and feeling cold, but denies any fever. Ears, nose and throat are unremarkable. Denies any headache. Cardiovascular system is significant for coronary artery disease. He had a coronary stent placed about a year ago. Denies any chest pain or palpitations at present. Respiratory system negative for cough or hemoptysis. GI system is significant for loss of appetite, but denies any vomiting or diarrhea. system is negative for dysuria or hematuria. Endocrine system is significant for secondary hyperparathyroidism, but no history of diabetes. Psychosocial system is significant for depression and anxiety. Hematological system is negative for anticoagulation. PHYSICAL EXAMINATION: The patient is sitting in the chair at the time of my visit. He is not in any acute distress and is receiving IV fluid. Temperature 98.6 degrees Fahrenheit, heart rate 60 per minute and respiratory rate 20 per minute. Blood pressure 134/82 mmHg and oxygen saturation 96% on room air. His head is atraumatic. Ears, nose and throat are unremarkable. Pupils equal and reactive to light and sclera is anicteric. There is no oral thrush or ulcers. Neck is supple and jugular venous distention (JVD) not elevated. There are no abnormal lymph nodes and no thyroid enlargement. Heart sounds are regular and there is no pericardial friction rub. A systolic murmur grade 1/6 is chronic and unchanged. Lungs sound clear to auscultation bilaterally. Abdomen: Soft and nontender. Bowel sounds are normal. Extremities have no cyanosis or clubbing. Transplant kidney in left lower quadrant is nontender. Fistula in his right upper extremity is patent with mild blood flow. Neurologically, the patient has no focal deficit and he is at his baseline mentation. LABORATORY DATA: Yesterday, his hemoglobin was 12.6 and hematocrit 37.8. Today, hemoglobin is down to 11.0 and hematocrit 33.2. Platelets 111. BUN is 23 and creatinine 1.58. Yesterday, his creatinine was 2.0. Troponin less than 0.02. Total protein 6.1 and albumin 3.2. Sodium is 141 and potassium 3.7. Urinalysis showed 2+ protein, 1+ blood with only 4 red blood cells of 1 white blood cell. INR 1.3. Chest x-ray done in the emergency room yesterday showed cardiomegaly without any effusion or infiltrate. PROBLEMS: 1. Acute kidney injury most likely related to dehydration. He had been receiving IV fluids since yesterday and kidney function seems to be back to his chronic baseline. He also is tolerating oral intake well and feels that his appetite is already improving. He did not have any fever and no other signs or symptoms suggestive of any infection. I do not feel that any viral infection workup is indicated at present. 2. Kidney transplant status. The patient should continue with chronic immunosuppressive therapy. His kidney function seems to be back to chronic baseline. 3. Hypertension. Blood pressure is very well controlled at present and he should continue with chronic antihypertensive medications. DISPOSITION: The patient seems to be doing well from a renal standpoint and I feel that he can be discharged to home later today and then follow up in the office. His blood and urine cultures are still pending and those can be followed up as an outpatient. I do not feel that at this point an antibiotic therapy is indicated. Thank you for involving me in the care of Mr. Leonard. I will follow him along with you.
== END 2019-12-09 14:00 | disposition home or self-care (01) ==
LOC: M ED 15:32 → M ED INP 18:29 → ENRESERV 18:57 → M MSPAV 20:22
PROVIDERS: ADMIT Internal Medicine; ATTEND Internal Medicine
DX: N17.9 Acute kidney failure, unspecified (principal); E86.0 Dehydration; N05.9 Unspecified nephritic syndrome with unspecified morphologic changes; I13.10 Hypertensive heart and chronic kidney disease without heart failure, with stage 1 through stage 4 chronic kidney disease, or unspecified chronic kidney disease; N18.3 Chronic kidney disease, stage 3 (moderate); D86.9 Sarcoidosis, unspecified; N25.81 Secondary hyperparathyroidism of renal origin; I25.10 Atherosclerotic heart disease of native coronary artery without angina pectoris; R53.1 Weakness; I25.2 Old myocardial infarction; Z95.5 Presence of coronary angioplasty implant and graft; M10.9 Gout, unspecified; Z79.899 Other long term (current) drug therapy; Z79.82 Long term (current) use of aspirin; Z79.52 Long term (current) use of systemic steroids; Z88.5 Allergy status to narcotic agent; Z88.1 Allergy status to other antibiotic agents; R53.83 Other fatigue; E78.2 Mixed hyperlipidemia; Z94.0 Kidney transplant status
CPT/HCPCS: 36415; 71045; 80047; 80048; 80061; 80076; 80197; 81001; 82550; 82553; 83605; 83690; 84443; 84484; 85025; 85027; 85610; 85730; 87040; 93005; 93041; 96360; 97161; 99285; G0378

== ENCOUNTER → 2019-12-08 | Outpatient (REF) | payer MEDICARE, BC ==
[~2019-12-08] MED LIST changes: +CLON0.5T2 PO; +MAGN1CAP PO; +VITAD1000T PO
[2019-12-08 18:26] LABS: CHOLESTEROL RISK RATIO 4.476 (<5); THYROID STIMULATING HORMONE 2.75 uIU/ML (0.358-3.740)
== END ==
LOC: M LAB REF 17:04
PROVIDERS: ATTEND Nurse Practitioner Family
DX: R53.83 Other fatigue (principal); E78.2 Mixed hyperlipidemia; Z94.0 Kidney transplant status

== ENCOUNTER → 2019-12-21 | Outpatient (REF) | payer MEDICARE, BC ==
[~2019-12-21] MED LIST changes: +ACTI300C PO; +ALLO100T PO; +AMLO1TAB24 PO; +AMLO1TAB25 PO; +ASPI-161 PO; -ASPI81TA85 PO; +ASPI81TA86 PO; +ASPI81TAEC PO; +CLON0.5T2 PO; +CVS5CHW2 PO; +D31000TA2 PO; +MAGN1CAP PO; +MAGN400T35 PO; +MELA1TAB9 PO; +MELA3TAB30 PO; +MERO1VIA3 IV; +OLAN5TAB PO; +OMEP-218 PO; +PARO10TA3 PO; +QUET25TA3 PO; +QUET50TA3 PO; +RAME8TAB2 PO; +REST15CA PO; +RISATAB3 PO; +SERT25TA21 PO; +SIME80CH5 PO; -SIME80TA PO; +SIRO1TAB3 PO; +SODI325T9 PO; +TEMA7.5C PO; +URSO300C3 PO
[2019-12-21 19:12] LABS: CHOLESTEROL RISK RATIO 2.787 (<5)
== END ==
LOC: M LAB REF 17:57
PROVIDERS: ATTEND Nurse Practitioner Family
DX: E78.2 Mixed hyperlipidemia (principal); Z94.0 Kidney transplant status

== ENCOUNTER → 2020-02-13 | Emergency (ER) | payer MEDICARE, BC ==
[~2020-02-13] MED LIST changes: +MAG400TA PO; -MAGN400T35 PO; +QUET1TAB7 PO; -QUET25TA3 PO; -QUET50TA3 PO; +QUET5TAB PO; -SIME80CH5 PO; +SIME80TA PO
[2020-03-30 18:37] LABS: HEMATOCRIT 40.6 % (42.0-52.0); MEAN CORPUSCULAR HEMOGLOBIN 29.2 pg (27.0-33.0); MEAN CORPUSCULAR VOLUME 91.2 fl (80.0-96.0); PLATELET COUNT, AUTOMATED 119 10^3/uL (150-450); RED BLOOD COUNT 4.45 10^6/uL (4.30-6.10); WHITE BLOOD COUNT 10.1 10^3/uL (4.0-10.0)
[2020-04-29 22:35] LABS: ALBUMIN 3.7 GM/DL (3.2-5.2); BILIRUBIN,DIRECT 0.3 MG/DL (0.0-0.2); BILIRUBIN,TOTAL 1.1 MG/DL (0.2-1.0); CALCIUM LEVEL 10.3 MG/DL (8.8-10.2); CREATININE FOR GFR 2.59 MG/DL (0.70-1.30); GLOMERULAR FILTRATION RATE 26.6 (>49); TOTAL PROTEIN 6.6 GM/DL (6.4-8.2)
== END | disposition home or self-care (01) ==
LOC: M ED 22:52
DX: I12.9 Hypertensive chronic kidney disease with stage 1 through stage 4 chronic kidney disease, or unspecified chronic kidney disease (principal); Z94.0 Kidney transplant status; Z88.5 Allergy status to narcotic agent; Z88.8 Allergy status to other drugs, medicaments and biological substances; Z79.899 Other long term (current) drug therapy

== ENCOUNTER → 2020-02-15 | Outpatient (REF) | payer MEDICARE, BC ==
[2020-03-31 17:24] LABS: ALBUMIN 3.3 GM/DL (3.2-5.2); BILIRUBIN,DIRECT 0.2 MG/DL (0.0-0.2); BILIRUBIN,TOTAL 0.7 MG/DL (0.2-1.0); TOTAL PROTEIN 5.9 GM/DL (6.4-8.2)
== END ==
LOC: M LAB REF 09:26
PROVIDERS: ATTEND Nurse Practitioner Family
DX: Z94.0 Kidney transplant status (principal)

== ENCOUNTER → 2020-02-23 | Outpatient (REF) | payer MEDICARE, BC | LOC: M LAB REF 13:31 | PROVIDERS: ATTEND Internal Medicine Gastroenterology | DX: R19.7 Diarrhea, unspecified (principal) ==

== ENCOUNTER → 2020-03-01 | Outpatient (CLI) | payer MEDICARE, BC | LOC: M LABSMTC 10:17 | PROVIDERS: ATTEND Anesthesiology | DX: Z03.818 Encounter for observation for suspected exposure to other biological agents ruled out (principal); Z11.59 Encounter for screening for other viral diseases ==

== ENCOUNTER 2020-03-03 22:51 | Emergency (ER) | payer MEDICARE, BC ==
[~2020-03-03] VITALS: Ht 170.2 cm; Wt 71.4 kg
[~2020-03-03 22:51] MED LIST changes: -ACTI300C PO; -ALLO100T PO; -AMLO1TAB24 PO; -AMLO1TAB25 PO; -ASPI-161 PO; -ASPI81TAEC PO; -CVS5CHW2 PO; -MAG400TA PO; -MELA1TAB9 PO; -MELA3TAB30 PO; -MERO1VIA3 IV; -OLAN5TAB PO; -OMEP-218 PO; -PARO10TA3 PO; -QUET1TAB7 PO; -QUET5TAB PO; -RAME8TAB2 PO; -REST15CA PO; -RISATAB3 PO; -SERT25TA21 PO; -SIRO1TAB3 PO; -SODI325T9 PO; -TEMA7.5C PO; -URSO300C3 PO
[2020-03-03] MEDS ORDERED: REGL10TA6 PO (23:19)
[2020-03-03] MEDS ORDERED: PARO10TA3 PO (23:19)
[2020-03-03 23:59] LABS: HEMATOCRIT 39.6 % (42.0-52.0); HEMOGLOBIN 13.2 g/dl (13.5-17.5); MEAN CORPUSCULAR HEMOGLOBIN 29.7 pg (27.0-33.0); MEAN CORPUSCULAR HGB CONC 33.3 g/dl (32.0-36.5); PLATELET COUNT, AUTOMATED 128 10^3/uL (150-450); RED BLOOD COUNT 4.45 10^6/uL (4.30-6.10); WHITE BLOOD COUNT 8.4 10^3/uL (4.0-10.0)
--- NOTE | 2020-03-04 00:03 | REPVR ---
PROCEDURE INFORMATION: Exam: CT Head Without Contrast Exam date and time: 03/03/2020 11:44 PM Age: 64 years old Clinical indication: Altered mental status/memory loss; Confusion or disorientation; Additional info: AMS TECHNIQUE: Imaging protocol: Computed tomography of the head without contrast. Radiation optimization: All CT scans at this facility use at least one of these dose optimization techniques: automated exposure control; mA and/or kV adjustment per patient size (includes targeted exams where dose is matched to clinical indication); or iterative reconstruction. COMPARISON: CT Head without contrast 2015-08-02 10:16 FINDINGS: Brain: Diffuse moderate cerebral age related volume loss. Moderate patchy low attenuation in the white matter compatible with moderate chronic small vessel ischemic disease. No midline shift, mass, fluid collection, or evidence of hemorrhage. Small chronic left basal ganglia lacunar infarct. Ventricles: Ventricular enlargement proportional to volume loss. There is a normal-variant cavum septum pellucidum. Bones/joints: Unremarkable. No acute fracture. Sinuses: Visualized sinuses are unremarkable. No fluid levels. Mastoid air cells: Visualized mastoid air cells are well aerated. Soft tissues: Unremarkable. IMPRESSION: Moderate involutional changes, no acute intracranial abnormality. Electronically signed by: Octavio Aguilar On 03/04/2020 00:03:38 AM
[2020-03-04 00:41] LABS: ACETAMINOPHEN LEVEL < 2.0 UG/ML (10.0-30.0); ALBUMIN 3.8 GM/DL (3.2-5.2); ALT/SGPT 18 U/L (12-78); BILIRUBIN,DIRECT 0.4 MG/DL (0.0-0.2); BILIRUBIN,TOTAL 1.3 MG/DL (0.2-1.0); BLOOD UREA NITROGEN 28 MG/DL (7-18); CALCIUM LEVEL 9.4 MG/DL (8.8-10.2); CARBON DIOXIDE LEVEL 29 MEQ/L (21-32); CHLORIDE LEVEL 104 MEQ/L (98-107); CREATININE FOR GFR 2.03 MG/DL (0.70-1.30); ETHYL ALCOHOL (ETHANOL) < 0.003 % (0.000-0.010); GLOMERULAR FILTRATION RATE 35.3 (>49); GLUCOSE, FASTING 90 MG/DL (70-100); POTASSIUM SERUM 3.9 MEQ/L (3.5-5.1); SALICYLATE LEVEL < 1.7 MG/DL (5.0-30.0); SODIUM LEVEL 138 MEQ/L (136-145); TOTAL PROTEIN 6.9 GM/DL (6.4-8.2)
[2020-03-04 01:04] LABS: AMPHETAMINES LEVEL URINE NEGATIVE (NEGATIVE); BARBITURATES URINE NEGATIVE (NEGATIVE); BENZODIAZEPINES URINE NEGATIVE (NEGATIVE); CANNABINOIDS URINE NEGATIVE (NEGATIVE); COCAINE METABOLITE URINE NEGATIVE (NEGATIVE); METHADONE URINE NEGATIVE (NEGATIVE); OPIATES URINE NEGATIVE (NEGATIVE); PHENCYCLIDINE URINE NEGATIVE (NEGATIVE)
[2020-03-04 03:33] VITALS: BP 161/79
== END 2020-03-04 03:27 | disposition home or self-care (01) ==
LOC: M ED 22:51
DX: F48.9 Nonpsychotic mental disorder, unspecified (principal); F41.9 Anxiety disorder, unspecified; Z79.84 Long term (current) use of oral hypoglycemic drugs; Z79.899 Other long term (current) drug therapy; Z88.1 Allergy status to other antibiotic agents; Z88.6 Allergy status to analgesic agent; Z88.8 Allergy status to other drugs, medicaments and biological substances; Z94.0 Kidney transplant status

== ENCOUNTER 2020-03-04 13:22 | Inpatient (IN) | payer MEDICARE, BC ==
[~2020-03-04] VITALS: Ht 175.3 cm; Wt 70.6 kg
[~2020-03-04 13:22] MED LIST changes: +PARO10TA3 PO
[2020-03-04 14:10] LABS: VENOUS BASE EXCESS -4.2 (-2.0-2.0); VENOUS HCO3 19.8 MEQ/L (23.0-27.0); VENOUS PARTIAL PRESSURE CO2 33.3 mmHg (38.0-50.0); VENOUS PARTIAL PRESSURE O2 129.3 mmHg (30.0-50.0); VENOUS PH 7.393 UNITS (7.330-7.430); VENOUS TOTAL CO2 20.9 MEQ/L (24.0-28.0)
[2020-03-04 14:11] LABS: VENOUS O2 SATURATION 98.7 % (60.0-80.0)
[2020-03-04 14:16] LABS: BASO % 0.3 % (0.0-1.0); EOS # 0.1 10^3/uL (0.0-0.5); EOS % 1.6 % (0.0-3.0); HEMATOCRIT 36.2 % (42.0-52.0); HEMOGLOBIN 11.9 g/dl (13.5-17.5); LYMPH # 0.8 10^3/uL (1.5-5.0); LYMPH % 12.7 % (24.0-44.0); MEAN CORPUSCULAR HEMOGLOBIN 29.3 pg (27.0-33.0); MEAN CORPUSCULAR HGB CONC 32.9 g/dl (32.0-36.5); MEAN CORPUSCULAR VOLUME 89.2 fl (80.0-96.0); MONO # 0.4 10^3/uL (0.0-0.8); MONO % 6.4 % (0.0-5.0); NEUTROPHILS # 4.8 10^3/uL (1.5-8.5); NEUTROPHILS % 78.7 % (36.0-66.0); PLATELET COUNT, AUTOMATED 113 10^3/uL (150-450); RED BLOOD COUNT 4.06 10^6/uL (4.30-6.10); WHITE BLOOD COUNT 6.1 10^3/uL (4.0-10.0)
[2020-03-04] MEDS: NS 1,000 ML IV SCH (14:29)
[2020-03-04 14:39] LABS: OSMOLALITY SERUM 285 MOSM/KG (280-301)
[2020-03-04 14:41] LABS: ACETAMINOPHEN LEVEL < 2.0 UG/ML (10.0-30.0); ALBUMIN 3.5 GM/DL (3.2-5.2); ALT/SGPT 16 U/L (12-78); BILIRUBIN,DIRECT 0.3 MG/DL (0.0-0.2); BILIRUBIN,TOTAL 1.1 MG/DL (0.2-1.0); BLOOD UREA NITROGEN 26 MG/DL (7-18); CARBON DIOXIDE LEVEL 26 MEQ/L (21-32); CHLORIDE LEVEL 107 MEQ/L (98-107); CK-MB VALUE MASS 1.9 NG/ML (<3.6); CPK CREATINE PHOSPHOKINASE 366 U/L (39-308); CREATININE FOR GFR 1.85 MG/DL (0.70-1.30); ETHYL ALCOHOL (ETHANOL) < 0.003 % (0.000-0.010); GLOMERULAR FILTRATION RATE 39.3 (>49); GLUCOSE, FASTING 115 MG/DL (70-100); MB/CK RELATIVE INDEX 0.52 (< OR =4); POTASSIUM SERUM 3.7 MEQ/L (3.5-5.1); SALICYLATE LEVEL < 1.7 MG/DL (5.0-30.0); SODIUM LEVEL 142 MEQ/L (136-145); TOTAL PROTEIN 6.1 GM/DL (6.4-8.2); TROPONIN I 0.02 NG/ML (< 0.10)
--- NOTE | 2020-03-04 17:43 | HPEPDOC ---
General Date of Admission Mar 04, 2020 at 16:11 Date of Service: Mar 04, 2020 Chief Complaint The patient is a 64-year-old male admitted with a reason for visit of Encephalopathy Acute. 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 Patient has h/o anxiety for which he used to take xanax which was changed to clonazepam 0.5 bid about 3 months ago. 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 On my interview he refused to talk and kept his eyes closed though he did folow commands. All history was from at bedside and ED provider. There was no fever, no headache or neck stiffness. His labs were at baseline. He had CT head yesterday which was negative for any acute events. He is being admitted for acute encephalopathy. Home Medications Scheduled Allopurinol (Allopurinol) 100 Mg Tab, 200 MG PO QHS, (Reported) Amlodipine Besylate (Norvasc) 5 Mg Tab, 5 MG PO QHS, (Reported) Aspirin (Aspir 81) 81 Mg Tab, 81 MG PO DAILY, (Reported) Atorvastatin Calcium (Atorvastatin Calcium) 40 Mg Tab, 40 MG PO QHS, (Reported) Calcitriol (Rocaltrol) 0.5 Mcg Cap, 0.5 MCG PO DAILY, (Reported) Carvedilol (Carvedilol) 12.5 Mg Tab, 12.5 MG PO BID, (Reported) Cholecalciferol (Vitamin D3) (Vitamin D3) 1,000 Unit Tablet, 1,000 UNITS PO DAILY, (Reported) Magnesium Oxide (Magnesium) 500 Mg Capsule, 1,000 MG PO DAILY, (Reported) Magnesium Oxide (Magnesium) 500 Mg Capsule, 500 MG PO QPM, (Reported) Mycophenolate Sodium (Mycophenolic Acid) 180 Mg Tab, 180 MG PO BID, (Reported) Omeprazole (Omeprazole) 20 Mg Cap, 20 MG PO Q2D, (Reported) Prednisone (Prednisone) 5 Mg Tab, 5 MG PO DAILY, (Reported) Tacrolimus (Prograf) 0.5 Mg Cap, 0.5 MG PO BID, (Reported) Scheduled PRN Acetaminophen (Acetaminophen) 500 Mg Tab, 500 MG PO Q4HP PRN for PAIN OR FEVER, (Reported) Metoclopramide HCl (Reglan) 10 Mg Tablet, 10 MG PO QID PRN for NAUSEA OR VOMITING, (Reported) Nitroglycerin (Nitrostat) 0.4 Mg Subl, 0.4 MG SL Q5MP PRN for CHEST PAIN, ( Reported) Allergies Coded Allergies: codeine (Verified Adverse Reaction, Mild, N/V, 03/31/19) meperidine (Verified Adverse Reaction, Mild, N/V, 03/31/19) morphine (Verified Adverse Reaction, Mild, N/V, 03/31/19) HAS TAKEN MORPHINE WITH ZOFRAN AND TOLERATED WELL oxycodone (Verified Adverse Reaction, Mild, N/V, 03/31/19) uses zofran prior to admin vancomycin (Verified Adverse Reaction, Mild, confusion, 03/31/19) Past Medical History Medical History Congenital kidney disease with ESRD status post Renal transplant 2 Hypertension. History of Sarcoidosis CKD Stage 3. CAD and MA s/p stents placement Secondary hyperparathyroidism Anxiety Surgical History Kidney transplant 2. Removal first transplanted kidney due to infection removal of [place] kidneys due to infection PD catheter placement and removal Fistula creation. Left shoulder repair. Cardiac stent placement. Family History patient is adapted Social History * Smoker: Denies Alcohol: Denies Drugs: denies A-FIB/CHADSVASC A-FIB History Current/History of A-Fib/PAF?: No Review of Systems Constitutional: Denies: Chills, Fever, Night Sweats Eyes: Denies: Pain, Vision change Pulmonary: Denies: Dyspnea, Cough Cardiovascular: Denies: Chest Pain, Palpitations, Orthopnea, Paroxysmal Noc. Dyspnea, Lt Headedness Gastrointestinal: Denies: Nausea, Vomiting, Abdominal Pain, Diarrhea Genitourinary: Denies: Dysuria, Frequency, Incontinence, Retention Musculoskeletal: Denies: Neck Pain, Back Pain, Muscle Pain, Spasms Neurological: Reports: Change in speech, Confusion Psych: Reports: Anxiety, Other Psych (paranoia, abnormal behaviour) Physical Examination General Exam: Positive: Cooperative, No Acute Distress Eye Exam: Positive: PERRLA, Conjunctiva & lids normal, EOMI; Negative: Sclera icteric ENT Exam: Positive: Atraumatic, Mucous membr. moist/pink, Pharynx Normal Neck Exam: Positive: Supple; Negative: JVD, thyromegaly Chest Exam: Positive: Clear to auscultation, Normal air movement Heart Exam: Positive: Bradycardic, Regular Rhythm, Normal S1, Normal S2; Negative: Murmurs, Rubs Telemetry: Positive: No significant arrhythmia Abdomen Exam: Positive: Normal bowel sounds, Soft; Negative: Tenderness, Hepatospenomegaly Extremity Exam: Negative: Clubbing, Cyanosis, Edema Skin Exam: Positive: Nl turgor and temperature; Negative: Breakdown, Lesion Neuro Exam: Positive: Normal Tone, Reflexes 2+ (in both the lower extremities.), Other (cog wheel rigidity at the wrists. moving all 4 extremities spontaneously) Psych Exam: Positive: Other (pateitn not talking) Vital Signs Vital Signs Date Time Temp Pulse Resp B/P (MAP) Pulse Ox O2 Delivery O2 Flow Rate FiO2 03/04/20 13:26 97.1 60 20 150/81 99 Room Air Laboratory Data Labs 24H Laboratory Tests 2 03/04/20 13:56: Immature Granulocyte % (Auto) 0.3, Neutrophils (%) (Auto) 78.7H, Lymphocytes (%) (Auto) 12.7L, Monocytes (%) (Auto) 6.4H, Eosinophils (%) (Auto) 1.6, Basophils (%) (Auto) 0.3, Neutrophils # (Auto) 4.8, Lymphocytes # (Auto) 0.8L, Monocytes # (Auto) 0.4, Eosinophils # (Auto) 0.1, Basophils # (Auto) 0.0, Nucleated Red Blood Cells % (auto) 0.0, Blood Gas Bicarbonate Standard 21.0, Venous Blood pH 7.393, Venous Blood Partial Pressure CO2 33.3L, Venous Blood Partial Pressure O2 129.3H, Venous Blood Total Carbon Dioxide 20.9L, Venous Blood HCO3 19.8L, Venous Blood Oxygen Saturation 98.7H, Venous Blood Base Excess -4.2L, Anion Gap 9, Glomerular Filtration Rate 39.3L, Osmolality 285, Lactic Acid Level 0.7, Calcium Level 9.0, Total Bilirubin 1.1H, Direct Bilirubin 0.3H, Aspartate Amino Transf (AST/SGOT) 36, Alanine Aminotransferase (ALT/SGPT) 16, Alkaline Phosphatase 71, Ammonia 30, Total Creatine Kinase 366H, Creatine Kinase MB 1.9, Creatine Kinase MB Relative Index 0.52, Troponin I 0.02, Total Protein 6.1L, Albumin 3.5, Albumin/Globulin Ratio 1.3, Thyroid Stimulating Hormone (TSH) 2.040, Salicylates Level < 1.7L, Acetaminophen Level < 2.0L, Ethyl Alcohol Level < 0.003 CBC/BMP Laboratory Tests 03/04/20 13:56 Microbiology Microbiology 03/04/20 Blood Culture, Received Pending 03/04/20 Blood Culture, Received Pending Assessment/Plan 64 year old male with 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 Patient has h/o anxiety for which he used to take xanax which was changed to clonazepam 0.5 bid about 3 months ago. 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 On my interview he refused to talk and kept his eyes closed though he did folow commands. All history was from at bedside and ED provider. There was no fever, no headache or neck stiffness. His labs were at baseline. He had CT head yesterday which was negative for any acute events. He is being admitted for acute encephalopathy. Acute encephalopathy Could be medication related. Paxel last dose on 03/03 and clonapin last dose of 02/27 If does not improve in the next 24 to 48 hours will need to evaluate for other E TAILER causes/ psychiatric causes. will get an MRI brain. discussed with Dr Stoner. CKD stage 3 at baseline Renal Tx status will continue home immunosuppressive meds. Hypertension will continue home meds amlodipine, coreg ALEXANDRE s/p stents. betablocker, statin will hold ASA as may need LP Hyperuricemia allopurinol. Plan / VTE VTE Prophylaxis Ordered?: Yes NADINE STRICKLAND MD Mar 04, 2020 17:43
[2020-03-04 18:11] LABS: AMPHETAMINES LEVEL URINE NEGATIVE (NEGATIVE); BARBITURATES URINE NEGATIVE (NEGATIVE); BENZODIAZEPINES URINE NEGATIVE (NEGATIVE); CANNABINOIDS URINE NEGATIVE (NEGATIVE); COCAINE METABOLITE URINE NEGATIVE (NEGATIVE); METHADONE URINE NEGATIVE (NEGATIVE); OPIATES URINE NEGATIVE (NEGATIVE); PHENCYCLIDINE URINE NEGATIVE (NEGATIVE)
[2020-03-04 18:12] VITALS: BP 163/80
[2020-03-04] MEDS ORDERED: clonazePAM 0.5 MG TAB PO ONE ×2 (20:00→20:30)
[2020-03-04] MEDS ORDERED: HALOPERIDOL 5MG/ML VIAL (J1630 PER 1) IV ONE (20:15)
[2020-03-04] MEDS ORDERED: PILL CUTTER 1 EACH XX PRN (20:15)
[2020-03-04] MEDS: allopurinoL 100 MG TAB PO SCH (20:54)
[2020-03-04] MEDS: ATORVASTATIN 20 MG TAB PO SCH (20:54)
[2020-03-04] MEDS: TACROLIMUS 0.5 MG CAP PO SCH (20:54)
[2020-03-04] MEDS: amLODIPine 5 MG TAB PO SCH (20:55)
[2020-03-04] MEDS: CARVedilol 12.5 MG TAB PO SCH (20:55)
[2020-03-04] MEDS: MYCOPHENOLATE 180 MG PO SCH (20:56)
[2020-03-04 22:00] VITALS: BP 158/78
[2020-03-05] MEDS: NS 1,000 ML IV SCH ×3 (01:38→19:46)
[2020-03-05 06:00] VITALS: BP 158/81
[2020-03-05] MEDS: TACROLIMUS 0.5 MG CAP PO SCH ×2 (08:37→20:42)
[2020-03-05] MEDS: CALCITRIOL 0.25 MCG CAP (S0169) PO SCH (08:38)
[2020-03-05] MEDS: predniSONE 5 MG TAB PO SCH (08:40)
[2020-03-05] MEDS: CARVedilol 12.5 MG TAB PO SCH ×2 (08:40→20:39)
[2020-03-05] MEDS: MYCOPHENOLATE 180 MG PO SCH ×2 (08:41→20:39)
[2020-03-05] MEDS ORDERED: LORazepam 2 MG/ML VIAL IV STA (11:05)
[2020-03-05] MEDS ORDERED: LORazepam 2 MG/ML VIAL As Ordered ONE (11:20)
--- NOTE | 2020-03-05 12:03 | IPNPDOC ---
Text Note Date of Service The patient was seen on 03/05/20. NOTE SUBJECTIVE: Patient is talking, pleasant, awake and alert this morning, follo wing commands. Going down for MRI. Told me last time he could not do it as he is very claustrophobic. Physical Exam: Vitals: stable General Exam: Positive: alert and Cooperative, No Acute Distress Eye Exam: Positive: PERRLA, Conjunctiva & lids normal, EOMI; Negative: Sclera icteric ENT Exam: Positive: Atraumatic, Mucous membr. moist/pink, Pharynx Normal Neck Exam: Positive: Supple; No neck rigidity or stiffness. Negative: JVD, thyromegaly Chest Exam: Positive: Clear to auscultation, Normal air movement Heart Exam: Positive: Bradycardic, Regular Rhythm, Normal S1, Normal S2; Negative: Murmurs, Rubs Telemetry: Positive: No significant arrhythmia Abdomen Exam: Positive: Normal bowel sounds, Soft; Negative: Tenderness, Hepatosplenomegaly Extremity Exam: Negative: Clubbing, Cyanosis, Edema Skin Exam: Positive: Nl turgor and temperature; Negative: Breakdown, Lesion Neuro Exam: Positive: Normal Tone, Reflexes 2+ (in both the lower extremities.), Other (cog wheel rigidity at the wrists). No focal neurodeficits. Psych Exam: Positive: Awake, alert oriented x 3 Labs and radiology : Reviewed. 64 year old male with h/o congenital kidney disease with ESRD s/p kidney tr ansplant x 2 now with chronic allograft nephropathy with Baseline creatinine of 1.8 presented to the ED with acute onset behavioral changes over the past 4 days. Patient has h/o anxiety for which he used to take xanax which was changed to clonazepam 0.5 bid about 3 months ago. 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 On my interview he refused to talk and kept his eyes closed though he did folow commands. All history was from at bedside and ED provider. There was no fever, no headache or neck stiffness. His labs were at baseline. He had CT head yesterday which was negative for any acute events. He is being admitted for acute encephalopathy. Acute encephalopathy Possibly medication related Vs psychiatric issue Paxel last dose on 03/03 DId get 1 dose of clonapin last night Avoid benzos and other psychiatri meds to evaluate for baseline menta status and consideration for psychiatric evaluation. will get an MRI brain. discussed with Dr Stoner. CKD stage 3 at baseline Renal Tx status will continue home immunosuppressive meds. Hypertension will continue home meds amlodipine, coreg ALEXANDRE s/p stents. betablocker, statin will hold ASA as may need LP Hyperuricemia allopurinol. Choledocholithiasis H/O CBD obstruction with stone or sludge in 2017 ERCP and metal stent placement in 2017 , then had cholangitis in November 2018 had ERCP again with sphincterotomy and metal stent removal which had migrated into the duct and placement of another CBD stent. Later in mar 2019 this stent was removed . Now does not have any stents. VS,Fishbone, I+O VS, Fishbone, I+O Laboratory Tests 03/04/20 13:56 Vital Signs Date Time Temp Pulse Resp B/P (MAP) Pulse Ox O2 Delivery O2 Flow Rate FiO2 03/05/20 08:40 59 154/75 03/05/20 06:00 98.5 18 95 Room Air I&O- Last 24 Hours up to 6 AM 03/05/20 06:00 Intake Total 600 ml Output Total 800 ml Balance -200 ml NADINE STRICKLAND MD Mar 05, 2020 12:03
--- NOTE | 2020-03-05 13:31 | REPVR ---
PROCEDURE INFORMATION: Exam: MR Head Without Contrast Exam date and time: 03/05/2020 12:23 PM Age: 64 years old Clinical indication: Other: Encephalopathy TECHNIQUE: Imaging protocol: MR of the head without contrast. COMPARISON: CT Head without contrast 03/03/2020 11:[address] Head without contrast 08/02/2015 10:16:15 AM MRI-Brain without Contrast 08/02/2015 3:10:55 PM FINDINGS: Brain: No acute infarct identified on the diffusion-weighted imaging. No parenchymal hemorrhage. The brain demonstrates mild generalized volume loss. Patchy increased signal intensity in the deep white matter on the T2 weighted imaging most likely represents chronic small vessel ischemic change. Focal, chronic right thalamic and right frontal subcortical white matter infarcts. On the T2 weighted sequence, ill-defined areas of increased signal intensity, essentially symmetric in the bilateral thalami for example seen on image 14 of series 601 comparing to image 12 of series 2 on the prior MRI brain of 08/02/2015. No correlative diffusion signal abnormality is identified. No basal ganglia T2 hyperintensities identified. Ventricles: Stable. The ventricles appear mildly enlarged in keeping with volume loss. Ventricular asymmetry, the left lateral ventricle appearing mildly larger than the right probably reflects asymmetrically prominent left periventricular deep white matter gliosis. There is a cavum septum pellucidum and cavum vergae, normal variant. Bones/joints: Unremarkable. Sinuses: Normal as visualized. No acute sinusitis. Mastoid air cells: Trace mastoid effusions. Orbits: Thinning of the lenses of the globes consistent with prior lens surgery. Soft tissues: Unremarkable. IMPRESSION: Essentially symmetric apparent increased signal intensity of the thalami on the T2 weighted imaging of uncertain significance. Could be related to progressive chronic ischemic disease versus an encephalitis/encephalopathy (could be infectious or related to a process such as PRES or metabolic derangement). Suggest postcontrast imaging and/or follow-up MRI brain, as needed, dependent upon the clinical scenario. Electronically signed by: Deepali Fontenot On 03/05/2020 13:31:07 PM
[2020-03-05 14:00] VITALS: BP 159/79
[2020-03-05] MEDS ORDERED: ALPRAZolam 0.25 MG TAB PO PRN (17:45)
[2020-03-05] MEDS: ACETAMINOPHEN TAB 650MG DOSE (2X325MG) PO PRN (18:02)
[2020-03-05] MEDS: amLODIPine 5 MG TAB PO SCH (20:38)
[2020-03-05] MEDS: allopurinoL 100 MG TAB PO SCH (20:39)
[2020-03-05] MEDS: ATORVASTATIN 20 MG TAB PO SCH (20:39)
[2020-03-05 22:00] VITALS: BP 156/80
[2020-03-06 06:00] VITALS: BP 152/80
[2020-03-06] MEDS: predniSONE 5 MG TAB PO SCH (08:46)
[2020-03-06] MEDS: OMEPRAZOLE 20 MG CAP PO SCH (08:46)
[2020-03-06] MEDS: CALCITRIOL 0.25 MCG CAP (S0169) PO SCH (08:46)
[2020-03-06] MEDS: TACROLIMUS 0.5 MG CAP PO SCH ×2 (08:46→20:32)
[2020-03-06] MEDS: CARVedilol 12.5 MG TAB PO SCH ×2 (08:48→20:34)
[2020-03-06] MEDS ORDERED: LORazepam 2 MG/ML VIAL IV ONE (09:00)
[2020-03-06] MEDS: amLODIPine 5 MG TAB PO SCH ×2 (10:44→20:33)
[2020-03-06 11:23] LABS: BASO % 0.5 % (0.0-1.0); EOS # 0.1 10^3/uL (0.0-0.5); EOS % 1.1 % (0.0-3.0); HEMATOCRIT 36.2 % (42.0-52.0); HEMOGLOBIN 11.8 g/dl (13.5-17.5); LYMPH # 0.9 10^3/uL (1.5-5.0); LYMPH % 14.5 % (24.0-44.0); MEAN CORPUSCULAR HEMOGLOBIN 29.6 pg (27.0-33.0); MEAN CORPUSCULAR HGB CONC 32.6 g/dl (32.0-36.5); MEAN CORPUSCULAR VOLUME 90.7 fl (80.0-96.0); MONO # 0.4 10^3/uL (0.0-0.8); MONO % 6.5 % (0.0-5.0); NEUTROPHILS # 4.9 10^3/uL (1.5-8.5); NEUTROPHILS % 76.6 % (36.0-66.0); PLATELET COUNT, AUTOMATED 108 10^3/uL (150-450); RED BLOOD COUNT 3.99 10^6/uL (4.30-6.10); WHITE BLOOD COUNT 6.3 10^3/uL (4.0-10.0)
[2020-03-06] MEDS ORDERED: ALPRAZolam 0.25 MG TAB PO PRN (11:30)
[2020-03-06 11:50] LABS: ALBUMIN 3.1 GM/DL (3.2-5.2); CALCIUM LEVEL 8.8 MG/DL (8.8-10.2); CREATININE FOR GFR 1.8 MG/DL (0.70-1.30); GLOMERULAR FILTRATION RATE 40.5 (>49); PHOSPHORUS LEVEL 1.8 MG/DL (2.5-4.9); POTASSIUM SERUM 3.6 MEQ/L (3.5-5.1)
--- NOTE | 2020-03-06 11:51 | IPNPDOC ---
Text Note Date of Service The patient was seen on 03/06/20. NOTE SUBJECTIVE: Patient awake alert oriented and pleasant. Complains of leg weakness and soreness. He did receive 1 dose of xanax last night for agitation. Physical Exam: Vitals: stable General Exam: Positive: alert and Cooperative, No Acute Distress Eye Exam: Positive: PERRLA, Conjunctiva & lids normal, EOMI; Negative: Sclera icteric ENT Exam: Positive: Atraumatic, Mucous membr. moist/pink, Pharynx Normal Neck Exam: Positive: Supple; No neck rigidity or stiffness. Negative: JVD, thyromegaly Chest Exam: Positive: Clear to auscultation, Normal air movement Heart Exam: Positive: Bradycardic, Regular Rhythm, Normal S1, Normal S2; Negative: Murmurs, Rubs Telemetry: Positive: No significant arrhythmia Abdomen Exam: Positive: Normal bowel sounds, Soft; Negative: Tenderness, Hepatosplenomegaly Extremity Exam: Negative: Clubbing, Cyanosis, Edema Skin Exam: Positive: Nl turgor and temperature; Negative: Breakdown, Lesion Neuro Exam: Positive: Normal Tone, Reflexes 2+ (in both the lower extremities.), Other (cog wheel rigidity at the wrists). No focal neurodeficits. Psych Exam: Positive: Awake, alert oriented x 3 Labs and radiology : Reviewed. MRI: Essentially symmetric apparent increased signal intensity of the thalami on the T2 weighted imaging of uncertain significance. Could be related to progressive chronic ischemic disease versus an encephalitis/encephalopathy (could be infectious or related to a process such as PRES or metabolic derangement). 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 Patient has h/o anxiety for which he used to take xanax which was changed to clonazepam 0.5 bid about 3 months ago. 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 On my interview he refused to talk and kept his eyes closed though he did follow commands. All history was from at bedside and ED provider. There was no fever, no headache or neck stiffness. His labs were at baseline. He had CT head yesterday which was negative for any acute events. He is being admitted for acute encephalopathy. Acute encephalopathy Possibly medication related MRI Brain as above, Due to Concern for PRESS syndrome as read in MRI will repeat MRI again today with contrast. He may have underlying mild dementia with intermittent confusion and paranoia. Paxel last dose on 03/03. Did get benzos in the hospital. If PRESS is ruled out and still has persistent symptoms will need to formally evaluate for baseline dementia and consider for psychiatric evaluation. will get an MRI brain with contrast discussed with Dr Stoner and Dr Cannon. CKD stage 3 at baseline Renal Tx status will continue home immunosuppressive meds. Myfortic stopped by Dr Cannon. Hypertension will continue home meds amlodipine, coreg amlodipine dose increased by Dr Cannon. ALEXANDRE s/p stents. betablocker, statin, ASA. Hyperuricemia allopurinol. Choledocholithiasis H/O CBD obstruction with stone or sludge in 2017 ERCP and metal stent placement in 2017 , then had cholangitis in November 2018 had ERCP again with sphincterotomy and metal stent removal which had migrated into the duct and placement of another CBD stent. Later in mar 2019 this stent was removed . Now does not have any stents. H/O Polio as a child. VS,Fishbone, I+O VS, Fishbone, I+O Laboratory Tests 03/06/20 10:33 Vital Signs Date Time Temp Pulse Resp B/P (MAP) Pulse Ox O2 Delivery O2 Flow Rate FiO2 03/06/20 10:44 61 153/83 03/06/20 06:00 98.1 2 94 Room Air I&O- Last 24 Hours up to 6 AM 03/06/20 06:00 Intake Total 1330 ml Output Total 575 ml Balance 755 ml NADINE STRICKLAND MD Mar 06, 2020 11:51
[2020-03-06] MEDS: ASPIRIN 81 MG ENTERIC TAB PO SCH (12:20)
[2020-03-06 14:00] VITALS: BP 136/79
[2020-03-06] MEDS ORDERED: PROHANCE 279.3MG/ML 5ML VIAL ONE (14:51)
[2020-03-06] MEDS ORDERED: LORazepam 2 MG/ML VIAL As Ordered ONE (14:53)
--- NOTE | 2020-03-06 15:58 | REPVR ---
PROCEDURE INFORMATION: Exam: MR Head With Contrast Exam date and time: 03/06/2020 3:24 PM Age: 64 years old Clinical indication: Abnormal findings; Abnormal radiologic findings of head/skull; Not specified; Patient HX: PT had mri 03/04/20 and follow up post contrast imaging was suggested; Additional info: Press syndrome TECHNIQUE: Imaging protocol: MR of the head with intravenous contrast. Contrast material: PROHANCE; Contrast volume: 7 ml; Contrast route: INTRAVENOUS (IV); COMPARISON: MRI-Brain without Contrast 03/05/2020 11:53 AM FINDINGS: Brain: No enhancing lesions were identified after the administration of contrast. There is no mass effect or midline shift. Ventricles: Mild ex vacuo dilation of the left lateral ventricle is present. IMPRESSION: No enhancing lesions were identified after the administration of contrast. Electronically signed by: Vinnie Martínez On 03/06/2020 15:58:27 PM
[2020-03-06] MEDS: MAGNESIUM OXIDE 400 MG TAB (MAG-OX) PO SCH ×2 (17:40→20:33)
[2020-03-06] MEDS: ATORVASTATIN 20 MG TAB PO SCH (20:32)
[2020-03-06] MEDS: allopurinoL 100 MG TAB PO SCH (20:33)
[2020-03-06 22:00] VITALS: BP 132/76
[2020-03-07 06:00] VITALS: BP 125/75
[2020-03-07] MEDS: ASPIRIN 81 MG ENTERIC TAB PO SCH (08:20)
[2020-03-07] MEDS: predniSONE 5 MG TAB PO SCH (08:20)
[2020-03-07] MEDS: MAGNESIUM OXIDE 400 MG TAB (MAG-OX) PO SCH ×3 (08:20→20:06)
[2020-03-07] MEDS: TACROLIMUS 0.5 MG CAP PO SCH ×2 (08:20→20:19)
[2020-03-07] MEDS: CALCITRIOL 0.25 MCG CAP (S0169) PO SCH (08:20)
[2020-03-07] MEDS: amLODIPine 5 MG TAB PO SCH ×2 (08:24→20:08)
[2020-03-07] MEDS: CARVedilol 12.5 MG TAB PO SCH ×2 (08:24→20:08)
[2020-03-07] MEDS: ACETAMINOPHEN TAB 650MG DOSE (2X325MG) PO PRN (11:28)
[2020-03-07 14:00] VITALS: BP 134/76
--- NOTE | 2020-03-07 15:17 | IPN ---
DATE: 03/06/2020 SUBJECTIVE: Patient was seen and examined at the bedside today morning. He is afebrile, hemodynamically stable. He is slightly more awake today as compared with yesterday. His blood pressures are still high. I discussed his MRI finding with neurology today and they feel like the MRI changes that we are seeing most likely are not related to posterior reversible encephalopathy syndrome (PRES) because usually it is seen in the occipital lobes. They recommend doing another MRI and at this point there is no urgent need to switch his immunosuppression, however he does need better control of blood pressure. OBJECTIVE: Vital signs: Temperature is 98.1 degrees Fahrenheit, blood pressure 153/83, pulse is 61, respiratory rate of 16, saturating 94% on room air. Intake and output: There is no urine output recorded. He has had two voids so far. Weight in the bed scale is not available. PHYSICAL EXAMINATION: General: Patient is awake, alert, oriented times three, laying in bed, no apparent distress. Head and neck exam: Extraocular muscles intact. Pupils equally round and reactive to light. Mucous membranes are moist. Neck is supple. There is no jugular venous distension (JVD). Cardiovascular: S1, S2, regular rate. No edema of the bilateral lower extremities. He has a right forearm arteriovenous (AV) fistula with thrill and bruit. Respiratory: Chest is clear to auscultation bilaterally. Bilateral equal air entry. No rales or rhonchi. Abdomen: Soft, positive bowel sounds, mildly tender to deep palpation in the left upper quadrant. He has a left lower quadrant renal allograft with no tenderness or bruit. Musculoskeletal: No clubbing or cyanosis. Pulses are 2+. Central nervous system ([employer]IST): No focal deficits. Power is 5/5 in all extremities. LABORATORY REVIEW: CBC showed WBC 6.3, hemoglobin 11.8, platelets are 108. BMP showed sodium 143, potassium 3.6, chloride 111, bicarbonate 26, BUN 19, creatinine is 1.8 with a GFR of 40.5, phosphorous is 1.8, albumin is 3.1. IMAGING: An MRI of the brain was done yesterday which is already mentioned in my note from yesterday. There was a concern for posterior reversible leukoencephalopathy on the MRI, however the changes were seen in the thalami. CURRENT INPATIENT MEDICATIONS: Patients medications were all reviewed by myself. His amlodipine dose was changed to 5 mg by mouth twice a day because of persistent hypertension. He continues to be on immunosuppression with prednisone, tacrolimus, and mycophenolate. Xanax has been changed to 0.25 mg nightly as needed for anxiety. ASSESSMENT AND PLAN: 1. Renal allograft status. Patients renal function is stable. Creatinine is 1.8. Continue current immunosuppression with tacrolimus, mycophenolate, and prednisone. I discussed with neurology. They are not that convinced that MRI changes are related to posterior reversible leukoencephalopathy. Patient is going to have a repeat MRI done. His glomerular filtration rate (GFR) is 40 which is borderline. It is okay to give half the dose of gadolinium. 2. Hypertension. Blood pressures are still not very well controlled. Amlodipine dose has been changed to 5 mg by mouth twice a day. Continue current dose of carvedilol 12.5 mg by mouth twice a day. If needed, hydralazine will be added to keep his blood pressure below 140. 3. Metabolic encephalopathy. Patient is currently getting Xanax as needed for anxiety. Blood pressure is being controlled as mentioned above. Repeat MRI to be done today as recommended by neurology. 4. Secondary hyperparathyroidism. Continue current dose of calcitriol 0.5 mcg by mouth daily. 5. Chronic gout secondary to chronic kidney disease. Continue current dose of allopurinol 200 mg by mouth nightly. MTDD
[2020-03-07 16:23] LABS: BASO % 0.2 % (0.0-1.0); EOS % 0.1 % (0.0-3.0); HEMATOCRIT 36.3 % (42.0-52.0); HEMOGLOBIN 11.7 g/dl (13.5-17.5); LYMPH # 0.7 10^3/uL (1.5-5.0); LYMPH % 7.6 % (24.0-44.0); MEAN CORPUSCULAR HEMOGLOBIN 29.9 pg (27.0-33.0); MEAN CORPUSCULAR HGB CONC 32.2 g/dl (32.0-36.5); MEAN CORPUSCULAR VOLUME 92.8 fl (80.0-96.0); MONO # 0.6 10^3/uL (0.0-0.8); MONO % 6.3 % (0.0-5.0); NEUTROPHILS # 8.2 10^3/uL (1.5-8.5); NEUTROPHILS % 85.3 % (36.0-66.0); RED BLOOD COUNT 3.91 10^6/uL (4.30-6.10); WHITE BLOOD COUNT 9.6 10^3/uL (4.0-10.0)
[2020-03-07 16:39] LABS: ALBUMIN 2.6 GM/DL (3.2-5.2); BILIRUBIN,TOTAL 2.4 MG/DL (0.2-1.0); CALCIUM LEVEL 8.4 MG/DL (8.8-10.2); CREATININE FOR GFR 2.66 MG/DL (0.70-1.30); GLOMERULAR FILTRATION RATE 25.8 (>49); POTASSIUM SERUM 4.7 MEQ/L (3.5-5.1)
[2020-03-07 16:52] LABS: PLATELET COUNT, AUTOMATED 70 10^3/uL (150-450)
--- NOTE | 2020-03-07 19:34 | IPNPDOC ---
Date Seen The patient was seen on 03/07/20. Progress Note SUBJECTIVE: examined at bedside. Doing well. No acute events overnight. Denies CP, n/v/d, palpitations. AAO x 3. OBJECTIVE PHYSICAL EXAMINATION: VITAL SIGNS: Please see below. GENERAL: NAD HEENT: PERRLA, EOMI CARDIOVASCULAR: RRR, normal S1, S2. RESPIRATORY: lungs CTAB, good inspiratory effort. ABDOMINAL: soft, non tender EXTREMITIES: no edema NEUROLOGICAL: no focal deficits PSYCHOLOGICAL: AAO x 3 Imaging: MRI brain wo contrast (03/05/20) IMPRESSION: Essentially symmetric apparent increased signal intensity of the thalami on the T2 weighted imaging of uncertain significance. Could be related to progressive chronic ischemic disease versus an encephalitis/encephalopathy (could be infectious or related to a process such as PRES or metabolic derangement). Suggest postcontrast imaging and/or follow-up MRI brain, as needed, dependent upon the clinical scenario. MRI brain w contrast (03/06/20) IMPRESSION: No enhancing lesions were identified after the administration of contrast. DVT prophylaxis ordered?: Y ASSESSMENT AND PLAN: 64 yo M with a hx of congenital kidney disease, s/p renal transplant x 2, and subsequent chronic allograft nephropathy, presented to [facility] with acute behavioural changes. Has a history of anxiety, treated with xanax in the past, switched to clonazepam 0.5 mg approximately 3 months ago. 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 His clonazepam was stopped and switched to paxil 10 mg daily. His behaviour further deteriorated, became more bizzare, paranoid. Initial CT brain showed no acute abnormality. No fever, headache, neck stiffness. Initial MRI brain showed concern for PRESS syndrome. Repeat MRI brain w contrast was performed. PROBLEMS: 1. Acute encephalopathy: repeat MRI brain w contrast shows no evidence for PRESS. Consider psychiatry eval in am, formal dementia eval. Hold paxil, hold benzodiazepines. 2. CKD 3: nephrology following. Continue home meds. Repeat Cr this morning 2.66 (up from 1.8). Dr. Cannon informed, started 1/2 NS at 60 cc/hr. Check bladder scan, straight cath if > 250 cc. Check CMP in am. 3. Hypertension: amlodipine, coreg. 4. CAD: BB, ASA, statin 5. Hyperuricemia: continue allopurinol 6. Choledocholithiasis: hx CBD obstruction (stone or sludge) in 2018. ERCP and metal stent in 2018. Developed cholangitis in 11/2018, s/p ERCP with sphincterotomy and metal stent removal which had migrated into the duct and placement of another CBD stent. Later in mar 2019 this stent was removed . Now does not have any stents. VS, I&O, 24H, Fishbone Vital Signs/I&O Vital Signs Date Time Temp Pulse Resp B/P (MAP) Pulse Ox O2 Delivery O2 Flow Rate FiO2 03/07/20 14:00 98.1 74 18 134/76 (95) 98 Room Air I&O- Last 24 Hours up to 6 AM 03/07/20 06:00 Intake Total 2155 ml Output Total 0 ml Balance 2155 ml Laboratory Data 24H LABS Laboratory Tests 2 03/07/20 15:54: Immature Granulocyte % (Auto) 0.5, Neutrophils (%) (Auto) 85.3H, Lymphocytes (%) (Auto) 7.6L, Monocytes (%) (Auto) 6.3H, Eosinophils (%) (Auto) 0.1, Basophils (%) (Auto) 0.2, Neutrophils # (Auto) 8.2, Lymphocytes # (Auto) 0.7L, Monocytes # (Auto) 0.6, Eosinophils # (Auto) 0.0, Basophils # (Auto) 0.0, Nucleated Red Blood Cells % (auto) 0.0, Immature Platelet Fraction 2.4, Anion Gap 9, Glomerular Filtration Rate 25.8L, Calcium Level 8.4L, Total Bilirubin 2.4H, Aspartate Amino Transf (AST/SGOT) 401H, Alanine Aminotransferase (ALT/SGPT) 313H, Alkaline Phosphatase 326H, Total Protein 5.0L, Albumin 2.6L, Albumin/Globulin Ratio 1.1 CBC/BMP Laboratory Tests 03/07/20 15:54 Microbiology Microbiology 03/04/20 Blood Culture - Preliminary, Resulted No Growth after 72 hours. All specime... 03/04/20 Blood Culture - Preliminary, Resulted No Growth after 72 hours. All specime... GUILLERMINA MINAYA MD Mar 07, 2020 19:34
[2020-03-07] MEDS ORDERED: NS 0.45% 1,000 ML IV SCH (19:45)
[2020-03-07] MEDS: allopurinoL 100 MG TAB PO SCH (20:06)
[2020-03-07] MEDS: ATORVASTATIN 20 MG TAB PO SCH (20:06)
[2020-03-07 22:00] VITALS: BP 139/73
[2020-03-08] MEDS: ACETAMINOPHEN TAB 650MG DOSE (2X325MG) PO PRN ×2 (00:55→22:31)
[2020-03-08 06:00] VITALS: BP 135/70
[2020-03-08 06:27] LABS: BASO % 0.1 % (0.0-1.0); EOS % 0.4 % (0.0-3.0); HEMATOCRIT 35.5 % (42.0-52.0); HEMOGLOBIN 11.6 g/dl (13.5-17.5); LYMPH # 0.8 10^3/uL (1.5-5.0); LYMPH % 8.6 % (24.0-44.0); MEAN CORPUSCULAR HEMOGLOBIN 29.2 pg (27.0-33.0); MEAN CORPUSCULAR HGB CONC 32.7 g/dl (32.0-36.5); MEAN CORPUSCULAR VOLUME 89.4 fl (80.0-96.0); MONO # 0.6 10^3/uL (0.0-0.8); NEUTROPHILS # 7.6 10^3/uL (1.5-8.5); NEUTROPHILS % 83.2 % (36.0-66.0); RED BLOOD COUNT 3.97 10^6/uL (4.30-6.10); WHITE BLOOD COUNT 9.1 10^3/uL (4.0-10.0)
[2020-03-08 06:57] LABS: ALBUMIN 2.6 GM/DL (3.2-5.2); BILIRUBIN,TOTAL 2.1 MG/DL (0.2-1.0); CREATININE FOR GFR 2.09 MG/DL (0.70-1.30); GLOMERULAR FILTRATION RATE 34.1 (>49); POTASSIUM SERUM 3.3 MEQ/L (3.5-5.1); TOTAL PROTEIN 5.1 GM/DL (6.4-8.2)
[2020-03-08 07:00] LABS: PLATELET COUNT, AUTOMATED 66 10^3/uL (150-450)
[2020-03-08] MEDS ORDERED: NS 0.45% 1,000 ML IV SCH (08:00)
[2020-03-08] MEDS: KCL 10MEQ/100ML SWI (KRUN) 10 MEQ in IV 1 EA IV SCH ×2 (08:50→10:29)
[2020-03-08] MEDS: TACROLIMUS 0.5 MG CAP PO SCH ×2 (08:54→22:19)
[2020-03-08] MEDS: MAGNESIUM OXIDE 400 MG TAB (MAG-OX) PO SCH ×3 (08:54→22:17)
[2020-03-08] MEDS: amLODIPine 5 MG TAB PO SCH ×2 (08:54→22:19)
[2020-03-08] MEDS: OMEPRAZOLE 20 MG CAP PO SCH (08:55)
[2020-03-08] MEDS: CALCITRIOL 0.25 MCG CAP (S0169) PO SCH (08:55)
[2020-03-08] MEDS: ASPIRIN 81 MG ENTERIC TAB PO SCH (08:55)
[2020-03-08] MEDS: CARVedilol 12.5 MG TAB PO SCH ×2 (08:55→22:18)
[2020-03-08] MEDS: predniSONE 5 MG TAB PO SCH (08:55)
[2020-03-08] MEDS ORDERED: POTASSIUM CHLORIDE 10 MEQ SR TABLET PO ONE (09:00)
--- NOTE | 2020-03-08 09:09 | IPN ---
DATE: 03/07/2020 SUBJECTIVE: Patient was seen and examined at the bedside today morning. Patient reports that he was not able to sleep at night. He still has some anxiety. I discussed his latest MRI with the neurologist again yesterday and they do not believe that the patient has posterior reversible leukoencephalopathy. No change in the immunosuppressive medications was recommended. Patient's blood pressure are better controlled now with increase in the Amlodipine dose. OBJECTIVE: Vital signs: Temperature is 98.7 degrees Fahrenheit, blood pressure 125/75, pulse 79, respiratory rate 19, saturating 92% on room air. Intake and output: There is no urine output recorded. He has had two voids so far since overnight. Weight in the bed scale is not available. PHYSICAL EXAMINATION: General: Patient is awake, alert and oriented x3, lying in bed, no apparent distress. Head and neck exam: Extraocular muscles intact. Pupils equally round and reactive to light. Mucous membranes are moist. Neck is supple. There is no JVD. Cardiovascular: S1, S2, regular rate. No edema of the bilateral lower extremities. He has a right forearm AV fistula with positive thrill and bruit. Respiratory: Chest is clear to auscultation bilaterally. Bilateral equal air entry. No rales or rhonchi. Abdomen: Soft, positive bowel sounds, left lower quadrant renal allograft is nontender. He has mild discomfort on deep palpation of the left upper quadrant. Genitourinary: Bladder is not palpable. Musculoskeletal: No clubbing or cyanosis. Pulses are 2+. COAL DELIVERER: No focal deficits. Power is 5/5 in all extremities. LABORATORY REVIEW: CBC from 03/06/2020 and BMP also from yesterday. No new labs available today. Blood cultures are negative so far. IMAGING STUDIES: A brain MRI was done again yesterday with I.V. Gadolinium; no enhancing lesions were identified. CURRENT INPATIENT MEDICATIONS: Patient's medications were all reviewed by myself. Xanax has been stopped now. No other significant change in the medications today as compared with yesterday. ASSESSMENT AND PLAN: 1. Metabolic encephalopathy: Unknown etiology at this time. It might be related to his severe anxiety or medications. Posterior reversible leukoencephalopathy has been ruled out on the MRI yesterday. His Xanax has been stopped today morning. 2. Hypertension: Blood pressure is better controlled now with Amlodipine 5 mg p.o. twice a day along with Carvedilol twice a day. 3. Renal allograft status: Continue current immunosuppression with Tacrolimus, prednisone and Mycophenolate. 4. Secondary hyperparathyroidism: Continue current dose of Calcitriol 0.5 mcg p.o. daily. MTDD
[2020-03-08] MEDS ORDERED: KCL 20MEQ in NS 1000ML 1,000 ML IV SCH (10:30)
[2020-03-08 14:00] VITALS: BP 129/72
--- NOTE | 2020-03-08 16:21 | IPNPDOC ---
Date Seen The patient was seen on 03/08/20. Progress Note SUBJECTIVE: examined at bedside. Doing well. No acute events overnight. Denies CP, n/v/d, palpitations. AAO x 3. Spoke with patient's at bedside. He remains withdrawn, disinterested, despite being alert. Normally very active man. OBJECTIVE PHYSICAL EXAMINATION: VITAL SIGNS: Please see below. GENERAL: NAD HEENT: PERRLA, EOMI CARDIOVASCULAR: RRR, normal S1, S2. RESPIRATORY: lungs CTAB, good inspiratory effort. ABDOMINAL: soft, non tender EXTREMITIES: no edema NEUROLOGICAL: no focal deficits PSYCHOLOGICAL: AAO x 3 Imaging: MRI brain wo contrast (03/05/20) IMPRESSION: Essentially symmetric apparent increased signal intensity of the thalami on the T2 weighted imaging of uncertain significance. Could be related to progressive chronic ischemic disease versus an encephalitis/encephalopathy (could be infectious or related to a process such as PRES or metabolic derangement). Suggest postcontrast imaging and/or follow-up MRI brain, as needed, dependent upon the clinical scenario. MRI brain w contrast (03/06/20) IMPRESSION: No enhancing lesions were identified after the administration of contrast. Liver US (03/08/20) IMPRESSION: 1. Prior cholecystectomy with mild prominence of the common bile duct measuring 5-7 mm. No intrahepatic bile duct dilatation or other complication of cholecystectomy. 2. Coarse hepatic echotexture suggesting hepatic fibrosis or cirrhosis. Trace perihepatic fluid DVT prophylaxis ordered?: Y ASSESSMENT AND PLAN: 64 yo M with a hx of congenital kidney disease, s/p renal transplant x 2, and subsequent chronic allograft nephropathy, presented to [facility] with acute behavioural changes. Has a history of anxiety, treated with xanax in the past, switched to clonazepam 0.5 mg approximately 3 months ago. 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 His clonazepam was stopped and switched to paxil 10 mg daily. His behaviour further deteriorated, became more bizzare, paranoid. Initial CT brain showed no acute abnormality. No fever, headache, neck stiffness. Initial MRI brain showed concern for PRESS syndrome. Repeat MRI brain w contrast was performed. PROBLEMS: 1. Acute encephalopathy: repeat MRI brain w contrast shows no evidence for PRESS. Consider psychiatry eval in am, formal dementia eval. Hold paxil, hold benzodiazepines. 2. CKD 3: nephrology following. Continue home meds. Cr mildly improved to 2.09. C/w IVF hydration. NS with KCL. 3. Hypertension: amlodipine, coreg. 4. CAD: BB, ASA, statin 5. Hyperuricemia: continue allopurinol 6. Choledocholithiasis: hx CBD obstruction (stone or sludge) in 2018. ERCP and metal stent in 2018. Developed cholangitis in 11/2018, s/p ERCP with sphincterotomy and metal stent removal which had migrated into the duct and placement of another CBD stent. Later in mar 2019 this stent was removed . Now does not have any stents. 7. Transaminitis: acute rise in AST/ALT. Liver US performed. CBD 5-7 mm. Coarse hepatic echotexture. Obtain MRCP. 8. Hypokalemia: replace. VS, I&O, 24H, Fishbone Vital Signs/I&O Vital Signs Date Time Temp Pulse Resp B/P (MAP) Pulse Ox O2 Delivery O2 Flow Rate FiO2 03/08/20 14:00 98.8 66 17 129/72 (91) 96 Room Air I&O- Last 24 Hours up to 6 AM 03/08/20 06:00 Intake Total 2620 ml Output Total 900 ml Balance 1720 ml Laboratory Data 24H LABS Laboratory Tests 2 03/08/20 05:46: Immature Granulocyte % (Auto) 0.7, Neutrophils (%) (Auto) 83.2H, Lymphocytes (%) (Auto) 8.6L, Monocytes (%) (Auto) 7.0H, Eosinophils (%) (Auto) 0.4, Basophils (%) (Auto) 0.1, Neutrophils # (Auto) 7.6, Lymphocytes # (Auto) 0.8L, Monocytes # (Auto) 0.6, Eosinophils # (Auto) 0.0, Basophils # (Auto) 0.0, Nucleated Red Blood Cells % (auto) 0.0, Anion Gap 9, Glomerular Filtration Rate 34.1L, Calcium Level 8.0L, Total Bilirubin 2.1H, Aspartate Amino Transf (AST/SGOT) 230H, Alanine Aminotransferase (ALT/SGPT) 236H, Alkaline Phosphatase 301H, Total Protein 5.1L, Albumin 2.6L, Albumin/Globulin Ratio 1.0 CBC/BMP Laboratory Tests 03/08/20 05:46 Microbiology Microbiology 03/04/20 Blood Culture - Preliminary, Resulted No Growth after 72 hours. All specime... 03/04/20 Blood Culture - Preliminary, Resulted No Growth after 72 hours. All specime... GUILLERMINA MINAYA MD Mar 08, 2020 16:21
--- NOTE | 2020-03-08 17:40 | REPVR ---
PROCEDURE INFORMATION: Exam: US Abdomen, Limited; Right Upper Quadrant Exam date and time: 03/08/2020 5:22 PM Age: 64 years old Clinical indication: Abnormal findings; Abnormal lab test; Elevated liver enzymes; Additional info: H/o choledocholithiasis, high lfts. Fever TECHNIQUE: Imaging protocol: US abdomen. Real time ultrasound with image documentation. Limited exam focused on the right upper quadrant. COMPARISON: Transplanted Kidneys US LEFT 10/12/2018 2:37 PM FINDINGS: Liver: Liver is coarse in echotexture, with no focal lesion. Small volume of perihepatic fluid Gallbladder: Gallbladder is surgically absent. Common bile duct: Common bile duct measures 5-7 mm in diameter. Pancreas: Pancreas is sonographically normal. Right kidney: Right kidney measures 6.8 in in cm in long axis. Right kidney appears atrophic. IMPRESSION: 1. Prior cholecystectomy with mild prominence of the common bile duct measuring 5-7 mm. No intrahepatic bile duct dilatation or other complication of cholecystectomy. 2. Coarse hepatic echotexture suggesting hepatic fibrosis or cirrhosis. Trace perihepatic fluid Electronically signed by: Pierre Salcido On 03/08/2020 17:39:55 PM
[2020-03-08 22:15] VITALS: BP 150/91
[2020-03-08] MEDS: allopurinoL 100 MG TAB PO SCH (22:19)
--- NOTE | 2020-03-08 22:22 | REPVR ---
PROCEDURE INFORMATION: Exam: MR Abdomen Without Contrast Exam date and time: 03/08/2020 10:08 PM Age: 64 years old Clinical indication: Abdominal tenderness; Patient HX: Acute transaminitis, HX of cbd obstruction TECHNIQUE: Imaging protocol: MR of the abdomen without contrast. 3D rendering (Not supervised by radiologist): MIP and/or 3D reconstructed images were created by the technologist. COMPARISON: MRI ABDOMEN WITHOUT CONTRAST 04/20/2018 12:05 PM FINDINGS: Liver: No mass. Gallbladder and bile ducts: There has been a cholecystectomy. 4.8 mm rounded low signal focus in the distal common bile duct without susceptibility artifact consistent with choledocholithiasis. Pancreas: Unremarkable. No ductal dilation. Spleen: Unremarkable. No splenomegaly. Adrenals: Unremarkable. No mass. Kidneys and ureters: Small atrophic calcified kidneys demonstrated bilaterally consistent with the known history of chronic renal failure. Stomach and bowel: Visualized stomach and intestines are unremarkable. Intraperitoneal space: There is a small amount of free intraperitoneal fluid present. Arteries: No abdominal aortic aneurysm. Bones/joints: Unremarkable. Soft tissues: Unremarkable. IMPRESSION: 1. There has been a cholecystectomy. 2. 4.8 mm rounded low signal focus in the distal common bile duct without susceptibility artifact consistent with choledocholithiasis. 3. There is a small amount of free intraperitoneal fluid present. 4. [place] kidneys demonstrate findings consistent with chronic renal failure. Electronically signed by: Ja Garcia On 03/08/2020 22:22:30 PM
[2020-03-09] VITALS (7 sets, daily range): BP systolic 130–153; BP diastolic 71–86
[2020-03-09] MEDS ORDERED: [UNRECOGNIZED DRUG - OTHER] PO SCH (02:00)
[2020-03-09] MEDS ORDERED: NITROGLYCERIN 0.3 MG SUBL TAB SL PRN (02:00)
[2020-03-09] MEDS ORDERED: MYCOPHENOLATE 200 MG/ML PO SCH (02:00)
--- NOTE | 2020-03-09 02:20 | REPVR ---
PROCEDURE INFORMATION: Exam: XR Chest, 1 View Exam date and time: 03/09/2020 2:14 AM Age: 64 years old Clinical indication: Other: Fever TECHNIQUE: Imaging protocol: XR of the chest Views: 1 view. COMPARISON: CR PORTABLE CHEST X-RAY 03/04/2020 1:40 PM FINDINGS: Lungs: Degree of lung inflation is normal. No evidence of pulmonary edema. No focal consolidation or parenchymal lung mass. Retrocardiac atelectasis or consolidation Pleural space: Bilateral pleural effusions blunting the costophrenic angles. No pneumothorax. Heart/Mediastinum: Cardiac silhouette appears normal. No adenopathy or hilar mass. Bones/joints: Osseous structures show no concerning abnormality. Left shoulder arthroplasty hardware. IMPRESSION: Bilateral pleural effusions, left larger than right, with left basilar atelectasis or infiltrate Electronically signed by: Pierre Salcido On 03/09/2020 02:19:47 AM
[2020-03-09] MEDS ORDERED: MEROPENEM INJ 1 GM in IV 1 EA IV STA (02:46)
[2020-03-09] MEDS ORDERED: CIPROFLOXACIN 400 MG in IV 1 EA IV STA (02:46)
[2020-03-09] MEDS: ACETAMINOPHEN TAB 650MG DOSE (2X325MG) PO PRN ×2 (04:35→12:45)
[2020-03-09] MEDS ORDERED: LINEZOLID 600 MG in IV 1 EA IV ONE (05:00)
[2020-03-09] MEDS ORDERED: LevoFLOXacin IV 750 MG in IV 1 EA IV SCH (06:30)
[2020-03-09 07:08] LABS: BASO % 0.2 % (0.0-1.0); EOS % 0.3 % (0.0-3.0); HEMOGLOBIN 11.1 g/dl (13.5-17.5); LYMPH # 0.4 10^3/uL (1.5-5.0); LYMPH % 6.4 % (24.0-44.0); MEAN CORPUSCULAR HEMOGLOBIN 29.4 pg (27.0-33.0); MEAN CORPUSCULAR HGB CONC 32.6 g/dl (32.0-36.5); MEAN CORPUSCULAR VOLUME 89.9 fl (80.0-96.0); MONO # 0.5 10^3/uL (0.0-0.8); MONO % 7.3 % (0.0-5.0); NEUTROPHILS # 5.5 10^3/uL (1.5-8.5); RED BLOOD COUNT 3.78 10^6/uL (4.30-6.10); WHITE BLOOD COUNT 6.4 10^3/uL (4.0-10.0)
[2020-03-09 07:15] LABS: PLATELET COUNT, AUTOMATED 64 10^3/uL (150-450)
[2020-03-09] MEDS ORDERED: metroNIDAZOLE 500 MG in IV 1 EA IV SCH (07:15)
[2020-03-09 07:27] LABS: ALBUMIN 2.6 GM/DL (3.2-5.2); BILIRUBIN,TOTAL 1.4 MG/DL (0.2-1.0); CALCIUM LEVEL 7.7 MG/DL (8.8-10.2); CREATININE FOR GFR 2.07 MG/DL (0.70-1.30); GLOMERULAR FILTRATION RATE 34.5 (>49); POTASSIUM SERUM 4.1 MEQ/L (3.5-5.1); TOTAL PROTEIN 5.2 GM/DL (6.4-8.2)
--- NOTE | 2020-03-09 07:30 | IPNPDOC ---
Date Seen The patient was seen on 03/09/20. Progress Note SUBJECTIVE: febrile overnight, Tmax 102.9. Given ice pack. Tylenol. Patient denies chills, chest pain, n/v/d or cough. He reports no abdominal pain this morning. AAO x 3. OBJECTIVE PHYSICAL EXAMINATION: VITAL SIGNS: Please see below. GENERAL: NAD HEENT: PERRLA, EOMI CARDIOVASCULAR: RRR, normal S1, S2. RESPIRATORY: lungs CTAB, good inspiratory effort. ABDOMINAL: soft, non tender to palpation in all 4 quadrants, BS+ EXTREMITIES: no edema NEUROLOGICAL: no focal deficits PSYCHOLOGICAL: AAO x 3 Imaging: MRI brain wo contrast (03/05/20) IMPRESSION: Essentially symmetric apparent increased signal intensity of the thalami on the T2 weighted imaging of uncertain significance. Could be related to progressive chronic ischemic disease versus an encephalitis/encephalopathy (could be infectious or related to a process such as PRES or metabolic derangement). Suggest postcontrast imaging and/or follow-up MRI brain, as needed, dependent upon the clinical scenario. MRI brain w contrast (03/06/20) IMPRESSION: No enhancing lesions were identified after the administration of contrast. Liver US (03/08/20): IMPRESSION: 1. Prior cholecystectomy with mild prominence of the common bile duct measuring 5-7 mm. No intrahepatic bile duct dilatation or other complication of cholecystectomy. 2. Coarse hepatic echotexture suggesting hepatic fibrosis or cirrhosis. Trace perihepatic fluid MRI abdo wo contrast: IMPRESSION: 1. There has been a cholecystectomy. 2. 4.8 mm rounded low signal focus in the distal common bile duct without susceptibility artifact consistent with choledocholithiasis. 3. There is a small amount of free intraperitoneal fluid present. 4. [place] kidneys demonstrate findings consistent with chronic renal failure. DVT prophylaxis ordered?: Y ASSESSMENT AND PLAN: 64 yo M with a hx of congenital kidney disease, s/p renal transplant x 2, and subsequent chronic allograft nephropathy, presented to [facility] with acute behavioural changes. Has a history of anxiety, treated with xanax in the past, switched to clonazepam 0.5 mg approximately 3 months ago. 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 His clonazepam was stopped and switched to paxil 10 mg daily. His behaviour further deteriorated, became more bizzare, paranoid. Initial CT brain showed no acute abnormality. No fever, headache, neck stiffness. Initial MRI brain showed concern for PRESS syndrome. Repeat MRI brain w contrast was performed. PROBLEMS: 1. Acute encephalopathy: repeat MRI brain w contrast shows no evidence for PRESS. Consider psychiatry eval in am, formal dementia eval. 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 Hold paxil, hold benzodiazepines. 2. SIRS: febrile overnight, Tmax 102.9. Received tylenol. UA, UCx, BCx sent. CXR showing b/l pleural effusion (L>R) with L basilar infiltrate. Cholangitis. Received linezolid, meropenem, ciprofloxacin overnight, started on levaquin. Stopped levaquin. Continue with meropenem. IVF. Given immunosuppressive therapy, low threshold for development of sepsis. 3. Pneumonia: seen on CXR. Meropenem. Tylenol prn. A galactomannan Ag pending. 4 Cholangitis: febrile overnight. Transaminitis with hyperbilirubinemia. Abdo pain absent. Liver US wnl. MRPC showing choledocholithiasis (4.8 mm focus in distal CBD). Requires ERCP. No GI on-call. Plan for transfer for ERCP. Empiric abx with meropenem. 5. Transminitis: cholangitis. Hep panel pending. 3. CKD 3: allograft nephropaty. Spoke to Dr. Cannon, c/w tacrolimus. Hold mycophenolate given suspicion for SIRS/Sepsis. 4. Hypertension: amlodipine, coreg. 5. CAD: BB, ASA, statin 6. Hyperuricemia: continue allopurinol 7. Choledocholithiasis: hx CBD obstruction (stone or sludge) in 2018. ERCP and metal stent in 2018. Developed cholangitis in 11/2018, s/p ERCP with sphincteroto my and metal stent removal which had migrated into the duct and placement of another CBD stent. Later in mar 2019 this stent was removed . Now does not have any stents. DVT ppx: SCDs, TEDs Dispo: transfer to [facility] in [place] for GI consult and ERCP. VS, I&O, 24H, Fishbone Vital Signs/I&O Vital Signs Date Time Temp Pulse Resp B/P (MAP) Pulse Ox O2 Delivery O2 Flow Rate FiO2 03/09/20 06:03 102.1 77 18 140/77 (98) 94 Room Air I&O- Last 24 Hours up to 6 AM 03/09/20 05:59 Intake Total 2760 ml Output Total 760 ml Balance 2000 ml Laboratory Data 24H LABS Laboratory Tests 2 03/09/20 02:17: 03/09/20 03:10: Methicillin-Resist S.aureus DNA PCR NOT DETECTED 03/09/20 03:20: Urine Color YELLOW, Urine Appearance CLEAR, Urine pH 6.0, Urine Specific [place] 1.011, Urine Protein 1+H, Urine Glucose (UA) NEGATIVE, Urine Ketones TRACEH, Urine Blood 1+H, Urine Nitrite NEGATIVE, Urine Bilirubin NEGATIVE, Urine Urobilinogen 0.2, Urine Leukocyte Esterase NEGATIVE, Urine WBC (Auto) 1, Urine RBC (Auto) 3, Urine Hyaline Casts (Auto) 0, Urine Bacteria (Auto) 1+H, Urine Squamous Epithelial Cells 0, Urine Sperm (Auto) 03/09/20 06:43: Immature Granulocyte % (Auto) 0.8, Neutrophils (%) (Auto) 85.0H, Lymphocytes (%) (Auto) 6.4L, Monocytes (%) (Auto) 7.3H, Eosinophils (%) (Auto) 0.3, Basophils (%) (Auto) 0.2, Neutrophils # (Auto) 5.5, Lymphocytes # (Auto) 0.4L, Monocytes # (Auto) 0.5, Eosinophils # (Auto) 0.0, Basophils # (Auto) 0.0, Nucleated Red Blood Cells % (auto) 0.0 CBC/BMP Laboratory Tests 03/09/20 06:43 Microbiology Microbiology 03/09/20 Respiratory Virus Panel (PCR) ([facility]) - Final, Complete 03/09/20 Blood Culture, Received Pending 03/04/20 Blood Culture - Preliminary, Resulted No Growth after 72 hours. All specime... 03/04/20 Blood Culture - Preliminary, Resulted No Growth after 72 hours. All specime... GUILLERMINA MINAYA MD Mar 09, 2020 07:30
[2020-03-09 08:57] LABS: BILIRUBIN,DIRECT 0.5 MG/DL (0.0-0.2)
[2020-03-09] MEDS ORDERED: VITAMIN D 1,000 INTERNATIONAL UNITS TABLET PO SCH (09:00)
[2020-03-09] MEDS ORDERED: ENTER DRUG NAME HERE (PATIENT'S OWN MED) PO SCH (09:00)
[2020-03-09] MEDS ORDERED: K-PHOS NEUTRAL 250MG TABLET (SOD.PHOSPHATE/POT.PHOSPHATE) PO SCH (09:00)
[2020-03-09] MEDS ORDERED: VANCOMYCIN HCL 1,000 MG, VIAL MATE ADAPTER 1 EACH in D5W 250 ML IV SCH (09:00)
[2020-03-09] MEDS: predniSONE 5 MG TAB PO SCH (09:23)
[2020-03-09] MEDS: CARVedilol 12.5 MG TAB PO SCH (09:23)
[2020-03-09] MEDS: MAGNESIUM OXIDE 400 MG TAB (MAG-OX) PO SCH (09:23)
[2020-03-09] MEDS: CALCITRIOL 0.25 MCG CAP (S0169) PO SCH (09:23)
[2020-03-09] MEDS: amLODIPine 5 MG TAB PO SCH (09:23)
[2020-03-09] MEDS: TACROLIMUS 0.5 MG CAP PO SCH (09:24)
[2020-03-09] MEDS: ASPIRIN 81 MG ENTERIC TAB PO SCH (09:24)
[2020-03-09 09:54] LABS: HEPATITIS A ANTIBODY IGM NEGATIVE (NEGATIVE); HEPATITIS B CORE ANTIBODY IGM NEGATIVE (NEGATIVE); HEPATITIS B SURFACE ANTIGEN NEGATIVE (NEGATIVE); HEPATITIS C VIRUS ABY INDEX 0.2 INDEX (<0.8)
[2020-03-09] MEDS ORDERED: VANCOMYCIN HCL 500 MG in D5W MINI-BAG PLUS 100 ML IV ONE (10:00)
--- NOTE | 2020-03-09 12:16 | DS.PDOC ---
Discharge Summary General Date of Admission Mar 04, 2020 at 16:11 Date of Discharge 03/09/2020 Attending Physician: GUILLERMINA MINAYA MD Discharge Summary PROCEDURES PERFORMED DURING STAY: None ADMITTING DIAGNOSES: 1. Acute encephalopathy 2. 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 HTN 5. Hyperuricemia DISCHARGE DIAGNOSES: 1. Encephalopathy 2. Pneumonia 3. Acute cholangitis 4. SIRS 5. Transaminitis 6. CKIII/chronic allograft nephropahty 7. HTN 8. CAD 9. Hyperuricemia COMPLICATIONS/CHIEF COMPLAINT: Encephalopathy Acute. 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 Patient has h/o anxiety for which he used to take xanax which was changed to clonazepam 0.5 bid about 3 months ago. 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 On my interview he refused to talk and kept his eyes closed though he did folow commands. All history was from at bedside and ED provider. There was no fever, no headache or neck stiffness. His labs were at baseline. He had CT head yesterday which was negative for any acute events. He is being admitted for acute encephalopathy. Hx CBD obstruction (stone or sludge) in 2018. ERCP and metal stent in 2018. Developed cholangitis in 11/2018, s/p ERCP with sphincterotomy and metal stent removal which had migrated into the duct and placement of another CBD stent. Later in mar 2019 this stent was removed . Now does not have any stents HOSPITAL COURSE: Mr. Leonard was admitted for workup of acute encephalopathy, thought to be metabolic in nature likely in reaction to recent benzodiazepine/SSRI use. CT head imaging was unremarkable. Tox screen negative. Mycophenolic acid, Tacrolimus levels pending. Neurology was consulted, patient obtained MRI brain wo contrast which had suspicion for progressive chronic ischemic disease vs encephalopathy vs infectious etiology vs PRESS syndrome, later ruled out with repeat MRI brain w/ contrast, which showed no masses, no foci. Suspected underlying dementia, COAT JOINER service was consulted for cogntive eval. Admission stay was complicated by a rise in liver enzymes, AST/ALT 401/313, T bili 2.4 on 03/07/20. Liver US was obtained but was unremarkable. 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 MRCP showed a 4.5 mm focus in distal CBD consistent with choledocholithiasis. Overnight on 03/09/20, patient developed high fevers. Tmax 102.9. UA, Ucx, Bcx were drawn. CXR showed a LLL infiltrate. Patient received empiric antibiotic therapy with linezolid, meropenem, ciprofloxacin and was started on levaquin. Given that the fevers could be related to acute cholangitis as well as pneumonia, meropenem was continued. Discussed with general surgeon component prep operator Dr. Taylor regarding clinic findings suspicious for cholangitis, and decision was made for transfer to [facility] for ERCP. Dr. Cannon (animal cruelty investigation supervisor) was made aware of developments and agreed. He recommends to continue the tacrolimus, but to hold mycophenolate given lower th reshold for sepsis in the immunocompromised patient. The following problems were addressed: 1. Acute encephalopathy: repeat MRI brain w contrast shows no evidence for PRESS. COAT JOINER eval pending. Hold paxil, hold benzodiazepines. Discussed with neurology, likely metabolic encephalopathy 2/2 medications. Consider psychiatry eval. 2. SIRS: febrile overnight, Tmax 102.9. Received tylenol. UA, UCx, BCx sent. CXR showing b/l pleural effusion (L>R) with L basilar infiltrate. Cholangitis. Received linezolid, meropenem, ciprofloxacin overnight, started on levaquin. Stopped levaquin. Continue with meropenem. IVF. Given immunosuppressive therapy, low threshold for development of sepsis. 3. Pneumonia: seen on CXR. Meropenem. Tylenon prn. A galactomannan Ag pending. 4 Cholangitis: febrile overnight. Transaminitis with hyperbilirubinemia. Abdo pain. Liver US wnl. MRPC showing choledocholithiasis (4.8 mm focus in distal CBD). Requires ERCP. No GI on-call. Plan for transfer for ERCP. Empiric abx with meropenem. 5. Transminitis: cholangitis. Hep panel pending. 6. CKD 3: allograft nephropathy. Spoke to Dr. Cannon, c/w tacrolimus. Hold mycophenolate (patient's home med) given suspicion for SIRS/Sepsis. 7. Hypertension: amlodipine, coreg. 8. CAD: BB, ASA, statin 9. Hyperuricemia: continue allopurinol 10. Choledocholithiasis: hx CBD obstruction (stone or sludge) in 2018. ERCP and metal stent in 2018. Developed cholangitis in 11/2018, s/p ERCP with sphincterotomy and metal stent removal which had migrated into the duct and placement of another CBD stent. Later in mar 2019 this stent was removed . Now does not have any stents DISCHARGE MEDICATIONS: Please see below. ALLERGIES: Please see below. PHYSICAL EXAMINATION ON DISCHARGE: VITAL SIGNS: Please see below. GENERAL: NAD HEENT: PERRLA, EOMI CARDIOVASCULAR: RRR, normal S1, S2. RESPIRATORY: lungs CTAB, good inspiratory effort. ABDOMINAL: soft, non tender EXTREMITIES: no edema NEUROLOGICAL: no focal deficits PSYCHOLOGICAL: AAO x 3 LABORATORY DATA: Please see below. IMAGING: MRI brain wo contrast (03/05/20) IMPRESSION: Essentially symmetric apparent increased signal intensity of the thalami on the T2 weighted imaging of uncertain significance. Could be related to progressive chronic ischemic disease versus an encephalitis/encephalopathy (could be infectious or related to a process such as PRES or metabolic derangement). Suggest postcontrast imaging and/or follow-up MRI brain, as needed, dependent upon the clinical scenario. MRI brain w contrast (03/06/20) IMPRESSION: No enhancing lesions were identified after the administration of contrast. Liver US (03/08/20): IMPRESSION: 1. Prior cholecystectomy with mild prominence of the common bile duct measuring 5-7 mm. No intrahepatic bile duct dilatation or other complication of cholecystectomy. 2. Coarse hepatic echotexture suggesting hepatic fibrosis or cirrhosis. Trace perihepatic fluid MRI abdo wo contrast: IMPRESSION: 1. There has been a cholecystectomy. 2. 4.8 mm rounded low signal focus in the distal common bile duct without susceptibility artifact consistent with choledocholithiasis. 3. There is a small amount of free intraperitoneal fluid present. 4. [place] kidneys demonstrate findings consistent with chronic renal failure. PROGNOSIS: favourable ACTIVITY: [As tolerated]. DIET: regular DISCHARGE PLAN: inpatient transfer to [facility] in [place], [place] for GI consult and intervention with ERCP DISPOSITION: inpatient transfer. DISCHARGE INSTRUCTIONS: 1. Given high fevers, elevated liver enzymes, elevated bilirubin, MRCP showing distal CBD stone, patient required ERCP to be performed. 2. He is high risk for sepsis given immunosuppressive therapy post renal transplant. 3. Per nephrology, to continue tacrolimus, hold mycophenolate given low sepsis threshold 4. CXR overnight showed likely consolidation in the LLL 5. Patient received linezolid, meropenem, levaquin and cipro overnight. Now, meropenem is continue for dual treatment of acute cholangitis and pneumonia. DISCHARGE CONDITION: Stable, VSS AAO x 3. TIME SPENT ON DISCHARGE: Greater than 30 minutes. Vital Signs/I&Os Vital Signs Date Time Temp Pulse Resp B/P (MAP) Pulse Ox O2 Delivery O2 Flow Rate FiO2 03/09/20 10:00 100.4 78 16 146/85 (105) 94 Room Air I&O- Last 24 Hours up to 6 AM 03/09/20 06:00 Intake Total 2220 ml Output Total 810 ml Balance 1410 ml Laboratory Data Labs 24H Laboratory Tests 2 03/09/20 02:17: Hepatitis A IgM Antibody NEGATIVE, Hepatitis B Surface Antigen NEGATIVE, Hepatit is B Core IgM Antibody NEGATIVE, Hepatitis C Antibody Index 0.2 03/09/20 03:10: Methicillin-Resist S.aureus DNA PCR NOT DETECTED 03/09/20 03:20: Urine Color YELLOW, Urine Appearance CLEAR, Urine pH 6.0, Urine Specific [place] 1.011, Urine Protein 1+H, Urine Glucose (UA) NEGATIVE, Urine Ketones TRACEH, Urine Blood 1+H, Urine Nitrite NEGATIVE, Urine Bilirubin NEGATIVE, Urine Urobilinogen 0.2, Urine Leukocyte Esterase NEGATIVE, Urine WBC (Auto) 1, Urine RBC (Auto) 3, Urine Hyaline Casts (Auto) 0, Urine Bacteria (Auto) 1+H, Urine Squamous Epithelial Cells 0, Urine Sperm (Auto) 03/09/20 06:43: Immature Granulocyte % (Auto) 0.8, Neutrophils (%) (Auto) 85.0H, Lymphocytes (%) (Auto) 6.4L, Monocytes (%) (Auto) 7.3H, Eosinophils (%) (Auto) 0.3, Basophils (%) (Auto) 0.2, Neutrophils # (Auto) 5.5, Lymphocytes # (Auto) 0.4L, Monocytes # (Auto) 0.5, Eosinophils # (Auto) 0.0, Basophils # (Auto) 0.0, Nucleated Red Blood Cells % (auto) 0.0, Immature Platelet Fraction 2.4, Anion Gap 10, Glomerular Filtration Rate 34.5L, Lactic Acid Level 1.9, Calcium Level 7.7L, Total Bilirubin 1.4H, Direct Bilirubin 0.5H, Aspartate Amino Transf (AST/SGOT) 98H, Alanine Aminotransferase (ALT/SGPT) 152H, Alkaline Phosphatase 222H, Total Protein 5.2L, Albumin 2.6L, Albumin/Globulin Ratio 1.0 CBC/BMP Laboratory Tests 03/09/20 06:43 Microbiology Microbiology 03/09/20 Respiratory Virus Panel (PCR) ([facility]) - Final, Complete 03/09/20 Blood Culture, Received Pending 03/04/20 Blood Culture - Preliminary, Resulted No Growth after 72 hours. All specime... 03/04/20 Blood Culture - Preliminary, Resulted No Growth after 72 hours. All specime... Discharge Medications Scheduled Allopurinol (Allopurinol) 100 Mg Tab, 200 MG PO QHS, (Reported) Amlodipine Besylate (Norvasc) 5 Mg Tab, 5 MG PO QHS, (Reported) Aspirin (Aspir 81) 81 Mg Tab, 81 MG PO DAILY, (Reported) Atorvastatin Calcium (Atorvastatin Calcium) 40 Mg Tab, 40 MG PO QHS, (Reported) Calcitriol (Rocaltrol) 0.5 Mcg Cap, 0.5 MCG PO DAILY, (Reported) Carvedilol (Carvedilol) 12.5 Mg Tab, 12.5 MG PO BID, (Reported) Cholecalciferol (Vitamin D3) (Vitamin D3) 1,000 Unit Tablet, 1,000 UNITS PO DAILY, (Reported) Magnesium Oxide (Magnesium) 500 Mg Capsule, 1,000 MG PO DAILY, (Reported) Magnesium Oxide (Magnesium) 500 Mg Capsule, 500 MG PO QPM, (Reported) Mycophenolate Sodium (Mycophenolic Acid) 180 Mg Tab, 180 MG PO BID, (Reported) Omeprazole (Omeprazole) 20 Mg Cap, 20 MG PO Q2D, (Reported) Prednisone (Prednisone) 5 Mg Tab, 5 MG PO DAILY, (Reported) Tacrolimus (Prograf) 0.5 Mg Cap, 0.5 MG PO BID, (Reported) Scheduled PRN Acetaminophen (Acetaminophen) 500 Mg Tab, 500 MG PO Q4HP PRN for PAIN OR FEVER, (Reported) Metoclopramide HCl (Reglan) 10 Mg Tablet, 10 MG PO QID PRN for NAUSEA OR VOMITING, (Reported) Nitroglycerin (Nitrostat) 0.4 Mg Subl, 0.4 MG SL Q5MP PRN for CHEST PAIN, (Reported) Allergies Coded Allergies: codeine (Verified Adverse Reaction, Mild, N/V, 03/31/19) meperidine (Verified Adverse Reaction, Mild, N/V, 03/31/19) morphine (Verified Adverse Reaction, Mild, N/V, 03/31/19) HAS TAKEN MORPHINE WITH ZOFRAN AND TOLERATED WELL oxycodone (Verified Adverse Reaction, Mild, N/V, 03/31/19) uses zofran prior to admin vancomycin (Verified Adverse Reaction, Mild, confusion, 03/31/19) GUILLERMINA MINAYA MD Mar 09, 2020 12:16
[2020-03-09] MEDS ORDERED: PRED5TA PO (12:26)
[2020-03-09] MEDS ORDERED: AMLO1TAB24 PO (12:26)
[2020-03-09] MEDS ORDERED: ASPI81TAEC PO (12:26)
[2020-03-09] MEDS ORDERED: MAG400TA PO (12:26)
[2020-03-09] MEDS ORDERED: MERO1VIA3 IV (12:26)
[2020-03-09] MEDS ORDERED: MEROPENEM INJ 1 GM in IV 1 EA IV SCH (16:00)
[2020-03-10 11:11] LABS: MYCOPHENOLIC ACID SERUM 1.7 ug/mL (1.0-3.5)
--- NOTE | 2020-03-10 13:09 | IPN ---
DATE: 03/08/2020 SUBJECTIVE: Patient was seen and examined at the bedside today morning. Patient reports that he had a fever spike last night and as per records, his T-max was 100.8 degrees Fahrenheit. He also reports inability to sleep at night and anxiety. Patient was found to have acute renal failure yesterday with a creatinine bump of 2.6. So he was started on half normal saline last night because of acute renal failure after getting a dose of I.V. Gadolinium with MRI. He also had elevated liver enzymes. He reports mild persistent upper abdominal pain. OBJECTIVE: Vital signs: Temperature is 98.8 degrees Fahrenheit, T-max 100.8 degrees Fahrenheit last night, blood pressure 129/72, pulse 66, respiratory rate 17, saturating 96% on room air. Intake and output: Urine output recorded as 650 mL. Weight in the bed scale is not available. PHYSICAL EXAMINATION: General: Patient is awake, alert and oriented x3, lying in bed, no apparent distress. Head and neck exam: Extraocular muscles intact. Pupils equally round and reactive to light. Mucous membranes are moist. Neck is supple. There is no JVD. Cardiovascular: S1, S2, regular rate. No edema of the bilateral lower extremities. Respiratory: Chest is clear to auscultation bilaterally. Bilateral equal air entry. No rales or rhonchi. Abdomen: Soft, mildly tender to deep palpation in the epigastrium and in the right upper quadrant. He has a left lower quadrant renal allograft with no significant tenderness. Musculoskeletal: No clubbing or cyanosis. Pulses are 2+. He has a right forearm AV fistula with thrill and bruit. POSTAL SUPPORT EMPLOYEE: No focal deficit. Power 5/5 in all extremities. LABORATORY REVIEW: CBC showed WBC 9.1, hemoglobin 11.6, platelets 66,000. BMP showed sodium 134, potassium 3.3, chloride 104, bicarb 21, BUN 26, creatinine 2.6 yesterday and 2 today. Calcium 8. Total bilirubin 2.4 yesterday and 2.1 today. AST 230, ALT 236, alkaline phosphatase 301. Albumin 2.6. IMAGING STUDIES: A liver ultrasound was done today, which showed prior cholecystectomy with a mild prominence of CBD measuring 5 to 7 mm, coarse hepatic echotexture suggesting hepatic fibrosis or cirrhosis. CURRENT INPATIENT MEDICATIONS: Patient's medications were all reviewed by myself. I have changed his I.V. fluid to KCl 20 mEq and normal saline at 60 cc an hour. He was getting half normal saline at 60 cc an hour, which was stopped. Patient's Lipitor was also stopped today because of elevated liver enzymes. He was given potassium chloride 40 mEq times one dose p.o. today morning. ASSESSMENT AND PLAN: 1. Acute kidney injury superimposed on chronic kidney disease: Patients baseline creatinine is 1.8; it was 2.6. He was given I.V. fluid hydration yesterday. Creatinine is getting better. Continue the I.V. fluids for one more liter. 2. Hypokalemia: It is secondary to use of I.V. fluid. Potassium was 3.3. He was given I.V. and oral potassium today. 3. Hyponatremia: It is secondary to use of half normal saline. I.V. fluids have been changed to KCl with normal saline. 4. Renal allograft status: Continue current immunosuppression with Tacrolimus, prednisone and Mycophenolate. 5. Elevated liver enzymes: Patient got the ultrasound done, why did not show any pathology. Lipitor has been held. He had a fever spike yesterday. If patient has another fever spike, he will be started on I.V. antibiotics. 6. Hypertension: Continue current dose of Coreg 12.5 mg p.o. twice a day and Amlodipine 5 mg p.o. twice a day. 7. Metabolic encephalopathy: Patient is clinically improving. He was seen by neurology. MRI with contrast was done yesterday, which did not show any acute pathology. GRE[facility]AK[facility] HEALTH SYSTEMOlivia
--- NOTE | 2020-03-10 13:11 | IPN ---
DATE: 03/09/2020 SUBJECTIVE: Patient was seen and examined at the bedside today morning. Last 24 hour events are noted. Patient got the MRI of the abdomen done which showed 4.8 mm stone in the distal common bile duct (CBD). He had a fever spike yesterday with a maximum temperature (T-max) of 103 degrees Fahrenheit. Patient was having active chills and rigors when I saw him today morning. I discussed the case with the medical team hospitalist and he is already discussing the case with gastrointestinal (GI) and he plans to transfer the patient to [facility] and [facility] has already accepted the patient for possible ERCP and removal of the CBD stone. Patient was started on broad-spectrum IV antibiotics last night. OBJECTIVE: Vital signs: Temperature is 100.4 degrees Fahrenheit, T-max 103 degrees Fahrenheit last night, blood pressure 146/85, pulse is 78, respiratory rate of 16, saturating 94% on room air. Intake and output: Urine output recorded is 450 mL. Weight in the bed scale is not available. PHYSICAL EXAMINATION: General: Patient is awake, alert, oriented times three, laying in the bed, having active chills and rigors. Head and neck exam: Extraocular muscles intact. Pupils equally round and reactive to light. Mucous membranes are moist. Neck is supple. There is no jugular venous distension (JVD). Cardiovascular: S1, S2, regular rate. Trace edema of the bilateral lower extremities. Respiratory: Chest is clear to auscultation bilaterally in the upper zones. Decreased breath sounds at the bases. Abdomen: Soft. Moderate amount of tenderness in the epigastrium and right upper quadrant and renal allograft is nontender at this time. Musculoskeletal: No clubbing or cyanosis. Pulses are 2+. Central nervous system (INSURANCE CLAIM APPROVER): No focal deficits. Power is 5/5 in all extremities. LABORATORY REVIEW: CBC showed WBC of 6.4, hemoglobin is 11, platelets are 64. BMP done today morning showed sodium 137, potassium 4.9, chloride 108, bicarbonate 19, BUN 24, creatinine is 2, lactic acid is 1.9, calcium 7.7, total bilirubin is 1.4, AST is 98, ALT is 152, alkaline phosphatase is 222, and all of these enzymes are getting better today as compared with yesterday, albumin is 2.6. Microbiology: Repeat blood cultures sent last night are pending. IMAGING: A chest x-ray was done yesterday which showed pleural effusion left larger than right with left basilar atelectasis or infiltrate. An abdominal MRI was done yesterday which showed patient is status post cholecystectomy. There was a 4.8 mm round low signal of focus in the distal CBD consistent with choledocholithiasis. There was small amount of free intraperitoneal fluid. CURRENT INPATIENT MEDICATIONS: Patients medications were all reviewed by myself. Patient was given a dose of ciprofloxacin IV, Zyvox IV, and meropenem IV last night. Now, he has been started on meropenem 1 gram IV every 12 hours. One dose of vancomycin was also ordered. IV fluids have been stopped. Mycophenolate was restarted but it has been stopped again because of development of sepsis and cholangitis. No other significant change in the medications today as compared with yesterday. ASSESSMENT AND PLAN: 1. Acute cholangitis. Patient is having active chills, rigors, fever spikes, evidence of stone in the common bile duct (CBD). He has been started on broad- spectrum IV antibiotics. Last time he had ERCP done by Dr. Moeller who is not available here. Hospitalist team has already discussed the case with [facility] and plan is to transfer him to [facility] for higher level of care and patient has been accepted there. Continue broad-spectrum IV antibiotics. 2. Renal allograft status. Because of developing ascending cholangitis mycophenolate has been stopped. He continues to be on tacrolimus and prednisone. 3. Hypertension. Blood pressures are still acceptable at this time. Continue current dose of amlodipine and carvedilol with holding parameters. 4. Secondary hyperparathyroidism. Continue current dose of calcitriol 0.5 mcg by mouth daily. 5. Chronic gout secondary to chronic kidney disease. Continue current dose of allopurinol 200 mg by mouth daily. MTDD
[2020-03-14 12:09] LABS: ASPERGILLUS GALACTOMANNAN AG 0.02 Index (0.00-0.49); Phencyclidine Negative (Cutoff=20)
--- NOTE | 2020-03-19 07:55 | ECGEPIP ---
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
--- NOTE | 2020-04-03 08:39 | REP ---
PORTABLE CHEST X-RAY CLINICAL: Altered mental status. COMPARISON: 12/08/2019. FINDINGS: Stable cardiomegaly. Lung cadena clear. No focal consolidation, effusion, or pneumothorax. Skeletal structures are intact. IMPRESSION: Stable cardiomegaly. No focal consolidation. MTDD
== END 2020-03-09 15:14 | disposition other institution (70) | DRG 70 ==
LOC: M ED 13:22 → M ED INP 16:11 → ENRESERV 16:23 → M MSPAV 18:15
PROVIDERS: ADMIT Internal Medicine Nephrology; ATTEND Family Medicine
DX: G93.41 Metabolic encephalopathy (principal); J18.9 Pneumonia, unspecified organism; Z94.0 Kidney transplant status; N25.81 Secondary hyperparathyroidism of renal origin; K83.09 Other cholangitis; N17.9 Acute kidney failure, unspecified; N18.3 Chronic kidney disease, stage 3 (moderate); F41.9 Anxiety disorder, unspecified; I12.9 Hypertensive chronic kidney disease with stage 1 through stage 4 chronic kidney disease, or unspecified chronic kidney disease; I25.10 Atherosclerotic heart disease of native coronary artery without angina pectoris; Z79.899 Other long term (current) drug therapy; Z88.5 Allergy status to narcotic agent; I25.2 Old myocardial infarction; Z95.2 Presence of prosthetic heart valve; M10.30 Gout due to renal impairment, unspecified site; E87.6 Hypokalemia

== ENCOUNTER 2020-03-16 08:10 | Inpatient (IN) | payer MEDICARE, BC ==
[~2020-03-16] VITALS: Ht 170.2 cm; Wt 64.2 kg
[~2020-03-16 08:10] MED LIST changes: +AMLO1TAB24 PO; +ASPI81TAEC PO; +MAG400TA PO; +MERO1VIA3 IV
[2020-03-16 14:00] VITALS: BP 155/71
[2020-03-16] MEDS ORDERED: ACETAMINOPHEN TAB 650MG DOSE (2X325MG) PO PRN (14:30)
[2020-03-16] MEDS ORDERED: NITROGLYCERIN 0.4 MG SUBL TABLET SL PRN (15:00)
[2020-03-16] MEDS ORDERED: QUEtiapine FUMARATE 12.5 MG HALF-TAB PO PRN (15:00)
[2020-03-16] MEDS ORDERED: URSO300C3 PO (15:18)
[2020-03-16] MEDS ORDERED: MELA3TAB30 PO (15:18)
[2020-03-16] MEDS ORDERED: AUGM875T28 PO (15:18)
[2020-03-16] MEDS ORDERED: QUET1TAB7 PO (15:18)
[2020-03-16] MEDS ORDERED: PRED5TA PO (15:18)
[2020-03-16] MEDS ORDERED: AMLO1TAB24 PO (15:18)
[2020-03-16] MEDS: LACTOBACILLUS ACIDOPHILUS CAP (BACID) PO SCH ×2 (16:00→21:16)
--- NOTE | 2020-03-16 16:33 | HPEPDOC ---
Exchange Underwriting Consultant Note DATE OF ADMISSION: 03-16-20 DATE OF SERVICE: 03-16-20 TIME OF ADMISSION: Please refer to physician's admission order. SOURCE OF ADMISSION INFORMATION: [facility] record and patient CHIEF COMPLAINT: cholangitis with encephalopathy HISTORY OF PRESENT ILLNESS: 64M pmh ESRD s/p renal transplant, sarcoidosis, STEMI, HTN, recurrent cholan gitis s/p cholecystectomy was admitted to [facility] on 03-09-20 with abdominal pain and encephalopathy. He was started oN meropenem for suspected cholangitis with ERCP confirmatory for choledocholithiasis with stone removal, main bile duct dilatation, and biliary tree sweep. He was started on Ursodiol and continued on IV antibiotics which was switched to Zosyn and later to po Augmentin. He had AZUCENA and hyperkalemia with persistent flat affect thought to be due to hypoactive delirium for which he was started on Seroquel. He was noted to have significant impairments in mobility and ADLs and deemed medically appropriate for discharge to ARU on 03-16-20. REVIEW OF SYSTEMS: The following is a completed review of systems and has been reviewed. Review of systems otherwise unremarkable. PAIN: Patient self reports[no pain EYES: No recent vision changes EARS, NOSE, & THROAT: No throat pain, or dysphagia, or rhinorrhea CARDIOVASCULAR: Denies chest pain or palpitations PULMONARY: Denies shortness of breath GASTROINTESTINAL: Denies constipation/diarrhea GENITOURINARY: denies dysuria MUSCULOSKELETAL: generalized weakness NEUROLOGICAL: +encephalopathic HEMATOLOGICAL: +chronic anemia SKIN: denies rash PSYCHIATRIC: flat affect All other review of systems found to be negative. PAST MEDICAL HISTORY: as per HPI PAST SURGICAL HISTORY: As per HPI, tonsillectomy, gastroplasty, bilat cataract extraction, bilat kidney transplant ALLERGIES: Please see below. MEDICATIONS: Please see below. SOCIAL HISTORY: No etoh/illicit drugs/smoking DIET: regular PHYSICAL EXAMINATION: VITAL SIGNS: Please see below. GENERAL: flat affect HEENT: PERRL. Extraocular movements intact. Clear conjunctiva CARDIOVASCULAR: Regular rate and rhythm. No murmurs, rubs, or gallops LUNGS: Clear to auscultation bilaterally. No wheezes. No rhonchi ABDOMEN: [Soft, nontender, nondistended. Positive bowel sounds. Normal active bowel sounds]. NEUROLOGICAL: Alert and oriented times three. Cranial nerves II through XII grossly intact. Sensation grossly intact EXTREMITIES: 5-\5 strength bilateral upper extremities. 5-\5 strength right low er extremity.5-/5 strength in left lower extremity. SKIN: intact LABORATORY DATA: Please see below. IMAGING: Imaging documentation personally reviewed by record FUNCTIONAL STATUS: Premorbid: Independent with mobility and ADLs On Admission: Mod-Max assist for functional transfers and ADLs GOALS: Mod-I for household ambulation, functional transfers, toileting, dressing, supervision for bathing ASSESSMENT:64-year-old M with past medical history of ESRD s/p bilat kidney transplants who presents status post cholangitis due to choledocolithiasis with sepsis and encephalopathy PLAN: 1.Rehab- PT/OT advance gait and ADLs, strenghten/stretch/maintain ROM all 4 limbs 2. Neuro- patient with recent epsidoes of delirium will monitor and avoid deliriogenic meds, patient appears to be depressed/encephalopathic will c/u antipsychotics and consider addition of low dose antidepressant 3. CArdiac- hx of NSTEMI and CAD- c/u ASA and carvedilol -Hx HTN c/u amlopidine -medicine consulted to assisti n overall management 4. Resp -monitor for infection 5. GI- c/p ERCP for choledocholithiasis and course of IV antibiotics for cholangitis, c/u Augmentin-f/u GI with Dr. Corcoran to discuss recent ERCP and tumor marker results, monitor for worsening abdominal symptoms -c/u ursodiol -ppx omeprazole 6. Renal- c/u tacrolimus/mycophenolate/prednisone for renal transplants, will consult renal to follow-along while inhouse -c/u calcitriol -c/u allopurinol 7. DVT ppx- heparin 8. Pain- tylenol prn 9. Dispo TBD POST ADMISSION PHYSICIAN EVALUATION: Medical and functional status: Description of medical status, medical assessment: As above. Rehabilitation diagnosis and current and prior cold morbid medical conditions as above. Risk of complications and plans to mitigate them as above. Description of functional status current status is as above. Prior status as above. Status compared to preadmission: There are no clinically significant differences between the patient's current status and the information described on the preadmission screening document. Treatment plan anticipated: Treatment plan is as described above. Required disciplines including physical therapy, occupational therapy, others as noted above Intensity of services: 3 hours a day, 6 days a week. Special considerations: There are no specific special or safety considerations that would likely preclude immediate implementation of an intensive rehabilitation program or subsequently influence the plan of care. ATTESTATION: Considering all the information above, it is my best judgment that this patient requires intensive rehabilitation therapy as described above and an inpatient hospital environment due to the complexity of nursing, medical, and rehabilitation needs required by the patient. Furthermore, this patient can reasonably be expected to participate in an benefit from an inpatient rehabilitation stay with an interdisciplinary team approach to the delivery of rehabilitation care under the direction and supervision of rehabilitation physician PROGNOSIS: good ESTIMATED LENGTH OF STAY:18-21 days. PROJECTED DISCHARGE DESTINATION: Home with family support and any durable medical equipment required to increase functional safety and mobility TIME SPENT COUNSELING AND COORDINATING INITIAL CARE: Greater than 70 minutes. Vital Signs Vital Sign - Last 24 Hours 03/16/20 14:00 Temp 98.0 Pulse 71 Resp 18 B/P (MAP) 155/71 (99) Pulse Ox 97 O2 Delivery Room Air Home Medications Scheduled Allopurinol (Allopurinol) 100 Mg Tab, 200 MG PO DAILY, (Reported) Amlodipine Besylate (Amlodipine Besylate) 5 Mg Tablet, 5 MG PO DAILY, (Reported) Amoxicillin/Potassium Clav (Augmentin 875-125 Tablet) 1 Each Tablet, 875 MG PO BID, (Reported) FOR 3 DAYS, END DATE 03/18/20 Aspirin (Aspir 81) 81 Mg Tab, 81 MG PO DAILY, (Reported) Atorvastatin Calcium (Atorvastatin Calcium) 40 Mg Tab, 40 MG PO DAILY, (Re ported) Calcitriol (Rocaltrol) 0.5 Mcg Cap, 0.5 MCG PO DAILY, (Reported) Carvedilol (Carvedilol) 12.5 Mg Tab, 12.5 MG PO BID, (Reported) Cholecalciferol (Vitamin D3) (Vitamin D3) 1,000 Unit Tablet, 1,000 UNITS PO DAILY, (Reported) Melatonin (Melatonin) 3 Mg Tablet, 3 MG PO QHS, (Reported) Omeprazole (Omeprazole) 20 Mg Cap, 20 MG PO Q2D, (Reported) Prednisone (Prednisone) 5 Mg Tablet, 5 MG PO DAILY, (Reported) Ursodiol (Ursodiol) 300 Mg Capsule, 300 MG PO BID, (Reported) Scheduled PRN Nitroglycerin (Nitrostat) 0.4 Mg Subl, 0.4 MG SL Q5MP PRN for CHEST PAIN, (Reported) Quetiapine Fumarate (Quetiapine Fumarate) 25 Mg Tablet, 12.5 MG PO BID PRN for AGITATION, (Reported) Allergies Coded Allergies: codeine (Verified Adverse Reaction, Mild, N/V, 03/31/19) meperidine (Verified Adverse Reaction, Mild, N/V, 03/31/19) morphine (Verified Adverse Reaction, Mild, N/V, 03/31/19) HAS TAKEN MORPHINE WITH ZOFRAN AND TOLERATED WELL oxycodone (Verified Adverse Reaction, Mild, N/V, 03/31/19) uses zofran prior to admin vancomycin (Verified Adverse Reaction, Mild, confusion, 03/31/19) A-FIB/CHADSVASC A-FIB History Current/History of A-Fib/PAF?: No ROLAN ENGLE MD Mar 16, 2020 16:33
[2020-03-16 20:00] VITALS: BP 150/86
[2020-03-16] MEDS: REMEDY PHYTOPLEX Z-GUARD PASTE 113GM TUBE (FROM STOREROOM PRODUCT) TOP SCH (21:00)
[2020-03-16] MEDS: SENNA 8.6 MG TAB (SENOKOT) PO SCH (21:00)
[2020-03-16] MEDS: DOCUSATE SODIUM 100 MG CAP PO SCH (21:00)
[2020-03-16] MEDS ORDERED: QUEtiapine FUMARATE 12.5 MG HALF-TAB PO SCH (21:00)
[2020-03-16] MEDS: ursodioL 300 MG CAP PO SCH (21:16)
[2020-03-16] MEDS: AUGMENTIN 875 MG TAB PO SCH (21:16)
[2020-03-16] MEDS: MYCOPHENOLATE 180 MG PO SCH (21:17)
[2020-03-16] MEDS: CARVedilol 12.5 MG TAB PO SCH (21:17)
[2020-03-16] MEDS: HEPARIN SOD (PORCINE) 5000UNITS/ML 1ML VIAL/SYRINGE SC SCH (21:18)
[2020-03-17 06:00] VITALS: BP 150/80
[2020-03-17 07:49] LABS: ALBUMIN 2.4 GM/DL (3.2-5.2); BILIRUBIN,TOTAL 0.8 MG/DL (0.2-1.0); CALCIUM LEVEL 8.2 MG/DL (8.8-10.2); CREATININE FOR GFR 1.46 MG/DL (0.70-1.30); GLOMERULAR FILTRATION RATE 51.6 (>49); POTASSIUM SERUM 3.9 MEQ/L (3.5-5.1); TOTAL PROTEIN 5.1 GM/DL (6.4-8.2)
[2020-03-17] MEDS: DOCUSATE SODIUM 100 MG CAP PO SCH ×2 (08:26→20:11)
[2020-03-17 08:36] LABS: BASO % 0.2 % (0.0-1.0); EOS # 0.1 10^3/uL (0.0-0.5); EOS % 1.3 % (0.0-3.0); HEMATOCRIT 37.3 % (42.0-52.0); HEMOGLOBIN 11.7 g/dl (13.5-17.5); LYMPH # 1.5 10^3/uL (1.5-5.0); LYMPH % 18.5 % (24.0-44.0); MEAN CORPUSCULAR HEMOGLOBIN 28.5 pg (27.0-33.0); MEAN CORPUSCULAR HGB CONC 31.4 g/dl (32.0-36.5); MEAN CORPUSCULAR VOLUME 90.8 fl (80.0-96.0); MONO # 0.8 10^3/uL (0.0-0.8); MONO % 9.1 % (0.0-5.0); NEUTROPHILS # 5.7 10^3/uL (1.5-8.5); NEUTROPHILS % 69.4 % (36.0-66.0); PLATELET COUNT, AUTOMATED 179 10^3/uL (150-450); RED BLOOD COUNT 4.11 10^6/uL (4.30-6.10); WHITE BLOOD COUNT 8.2 10^3/uL (4.0-10.0)
[2020-03-17] MEDS: REMEDY PHYTOPLEX Z-GUARD PASTE 113GM TUBE (FROM STOREROOM PRODUCT) TOP SCH ×3 (09:00→20:10)
[2020-03-17] MEDS ORDERED: PNEUMOCOCCAL VACCINE 0.5ML SYRINGE (PNEUMOVAX 23) IM ONE (09:00)
[2020-03-17] MEDS ORDERED: FLUBLOK(EGG FREE)(QUAD)INFLUENZA VACC 0.5ML SYRINGE 18YRS & OLDER IM ONE (09:00)
[2020-03-17] MEDS: amLODIPine 5 MG TAB PO SCH (09:00)
[2020-03-17] MEDS ORDERED: TACROLIMUS 0.5 MG CAP PO SCH (09:00)
--- NOTE | 2020-03-17 10:24 | IPNPDOC ---
PM&R Progress Note DATE OF SERVICE: Mar 17, 2020 Pull Over Machine Operator Progress Note Subjective: Patient seen in his room with his who as asked to come in today to encourage him to take his medications. He appears alert, but not verbally responsive, able to participate in therapy. REVIEW OF SYSTEMS: The following is a completed review of systems and has been reviewed. Review of systems otherwise unremarkable. PAIN: Patient self reports no pain EYES: No recent vision changes EARS, NOSE, & THROAT: No throat pain, or dysphagia, or rhinorrhea CARDIOVASCULAR: Denies chest pain or palpitations PULMONARY: Denies shortness of breath GASTROINTESTINAL: Denies constipation/diarrhea GENITOURINARY: denies dysuria MUSCULOSKELETAL: generalized weakness NEUROLOGICAL: +encephalopathic HEMATOLOGICAL: +chronic anemia SKIN: denies rash PSYCHIATRIC: flat affect All other review of systems found to be negative. PHYSICAL EXAMINATION: VITAL SIGNS: Please see below. GENERAL: flat affect HEENT: PERRL. Extraocular movements intact. Clear conjunctiva CARDIOVASCULAR: Regular rate and rhythm. No murmurs, rubs, or gallops LUNGS: Clear to auscultation bilaterally. No wheezes. No rhonchi ABDOMEN: [Soft, nontender, nondistended. Positive bowel sounds. Normal active bowel sounds]. NEUROLOGICAL: Alert and oriented times three. Cranial nerves II through XII grossly intact. Sensation grossly intact EXTREMITIES: 5-\5 strength bilateral upper extremities. 5-\5 strength right lower extremity.5-/5 strength in left lower extremity. SKIN: intact ASSESSMENT:64-year-old M with past medical history of ESRD s/p bilat kidney transplants who presents status post cholangitis due to choledocolithiasis with sepsis and encephalopathy PLAN: 1.Rehab- PT/OT advance gait and ADLs, strenghten/stretch/maintain ROM all 4 limbs- able to ambulate without AD, unsteady on his feet 2. Neuro- patient with recent episodes of delirium will monitor and avoid deliriogenic meds, patient appears to be depressed/encephalopathic will switch to Zyprexa 2.5 mg BID to decrease chances of EPS and add prozac 10mg qHS to help with possible underlying depression 3. CArdiac- hx of NSTEMI and CAD- c/u ASA and carvedilol -Hx HTN c/u amlopidine -medicine consulted to assisti n overall management 4. Resp -monitor for infection 5. GI- c/p ERCP for choledocholithiasis and course of IV antibiotics for cholangitis, c/u Augmentin-f/u GI with Dr. Corcoran to discuss recent ERCP and tumor marker results, monitor for worsening abdominal symptoms -c/u ursodiol -ppx omeprazole 6. Renal- c/u tacrolimus/mycophenolate/prednisone for renal transplants, will c onsult renal to follow-along while inhouse -c/u calcitriol -c/u allopurinol 7. DVT ppx- heparin 8. Pain- tylenol prn 9. Psych- zyprexa 2.5 mg BID and prozac 10 mg qHS 9. Dispo TBD Allergies Coded Allergies: codeine (Verified Adverse Reaction, Mild, N/V, 03/31/19) meperidine (Verified Adverse Reaction, Mild, N/V, 03/31/19) morphine (Verified Adverse Reaction, Mild, N/V, 03/31/19) HAS TAKEN MORPHINE WITH ZOFRAN AND TOLERATED WELL oxycodone (Verified Adverse Reaction, Mild, N/V, 03/31/19) uses zofran prior to admin vancomycin (Verified Adverse Reaction, Mild, confusion, 03/31/19) Vital Signs Vital Signs Date Time Temp Pulse Resp B/P (MAP) Pulse Ox O2 Delivery O2 Flow Rate FiO2 03/17/20 06:00 98.6 66 18 150/80 (103) 93 Room Air Laboratory Data CBC/BMP Laboratory Tests 03/17/20 06:56 03/17/20 08:19 Labs 24H Laboratory Tests 2 03/17/20 06:56: Anion Gap 10, Glomerular Filtration Rate 51.6, Calcium Level 8.2L, Total B ilirubin 0.8, Aspartate Amino Transf (AST/SGOT) 17, Alanine Aminotransferase (ALT/SGPT) 23, Alkaline Phosphatase 102, Total Protein 5.1L, Albumin 2.4L, Albumin/Globulin Ratio 0.9 03/17/20 08:19: Immature Granulocyte % (Auto) 1.5, Neutrophils (%) (Auto) 69.4H, Lymphocytes (%) (Auto) 18.5L, Monocytes (%) (Auto) 9.1H, Eosinophils (%) (Auto) 1.3, Basophils (%) (Auto) 0.2, Neutrophils # (Auto) 5.7, Lymphocytes # (Auto) 1.5, Monocytes # (Auto) 0.8, Eosinophils # (Auto) 0.1, Basophils # (Auto) 0.0, Nucleated Red Blood Cells % (auto) 0.0 Current Medications Current Medications Current Medications Medications (Trade) Dose Ordered Sig/Shanae Route PRN Reason Start Time Stop Time Status Last Admin Dose Admin Acetaminophen (Tylenol Tab) 650 mg Q4HP PRN PO fever/MILD PAIN (PS 1-4) 03/16/20 14:30 Allopurinol (Zyloprim) 200 mg DAILY PO 03/17/20 09:00 Amlodipine Besylate (Norvasc) 5 mg DAILY PO 03/17/20 09:00 Amoxicillin/ Clavulanate Potassium (Augmentin) 875 mg BID PO 03/16/20 21:00 03/19/20 09:01 03/16/20 21:16 Aspirin (Ecotrin) 81 mg DAILY PO 03/17/20 09:00 Atorvastatin Calcium (Lipitor) 40 mg DAILY PO 03/17/20 09:00 Calcitriol (Rocaltrol) 0.5 mcg DAILY PO 03/17/20 09:00 Carvedilol (COReg) 12.5 mg BID PO 03/16/20 21:00 03/16/20 21:17 Docusate Sodium (Colace) 100 mg BID PO 03/16/20 21:00 Heparin Sodium (Porcine) (Heparin) 5,000 units Q12H SC 03/16/20 21:00 03/16/20 21:18 Home Med (Med Rec Complete!) ASDIRECTED XX 03/16/20 15:30 03/16/20 15:31 DC Lactobacillus Acidophilus (Bacid) 1 ea TID PO 03/16/20 16:00 03/16/20 21:16 Miscellaneous (Unresolved Patient Own Med Order) SEE LABEL COMMENTS DAILY XX 03/16/20 09:00 03/16/20 19:55 DC Nitroglycerin (Nitrostat (1/ 150)) 0.4 mg Q5MP PRN SL CHEST PAIN 03/16/20 15:00 Omeprazole (PriLOSEC) 20 mg DAILY PO 03/17/20 09:00 Patient Own Medication (Patient'S Own Med) MYCOPHENOLATE (MYFORTIC) 18... BID PO 03/16/20 21:00 03/16/20 21:17 Prednisone (Deltasone) 5 mg DAILY PO 03/17/20 09:00 Quetiapine Fumarate (SEROquel) 12.5 mg BID PO 03/16/20 21:00 03/16/20 21:16 Quetiapine Fumarate (SEROquel) 12.5 mg BID PRN PO agitation 03/16/20 15:00 03/16/20 17:12 DC Senna (Senokot) 1 tab QHS PO 03/16/20 21:00 Tacrolimus (Prograf) 0.5 mg DAILY PO 03/17/20 09:00 Ursodiol (Actigall) 300 mg BID PO 03/16/20 21:00 03/16/20 21:16 Vitamin D (Vitamin D) 1,000 units DAILY PO 03/17/20 09:00 ROLAN ENGLE MD Mar 17, 2020 10:24
[2020-03-17] MEDS: OMEPRAZOLE 20 MG CAP PO SCH (12:05)
[2020-03-17] MEDS: AUGMENTIN 875 MG TAB PO SCH ×2 (12:06→20:09)
[2020-03-17] MEDS: LACTOBACILLUS ACIDOPHILUS CAP (BACID) PO SCH ×3 (12:06→20:09)
[2020-03-17] MEDS: ursodioL 300 MG CAP PO SCH ×2 (12:06→20:09)
[2020-03-17] MEDS: allopurinoL 100 MG TAB PO SCH (12:07)
[2020-03-17] MEDS: CALCITRIOL 0.25 MCG CAP (S0169) PO SCH (12:07)
[2020-03-17] MEDS: CARVedilol 12.5 MG TAB PO SCH ×2 (12:08→20:10)
[2020-03-17] MEDS: ATORVASTATIN 20 MG TAB PO SCH (12:09)
[2020-03-17] MEDS: VITAMIN D 1,000 INTERNATIONAL UNITS TABLET PO SCH (12:09)
[2020-03-17] MEDS: ASPIRIN 81 MG ENTERIC TAB PO SCH (12:09)
[2020-03-17] MEDS: predniSONE 5 MG TAB PO SCH (12:09)
[2020-03-17] MEDS: HEPARIN SOD (PORCINE) 5000UNITS/ML 1ML VIAL/SYRINGE SC SCH ×2 (12:12→20:09)
[2020-03-17] MEDS: MYCOPHENOLATE 180 MG PO SCH ×2 (12:14→20:10)
[2020-03-17] MEDS: OLANZapine 2.5MG TABLET PO SCH ×2 (12:18→20:10)
[2020-03-17 14:00] VITALS: BP 138/88
[2020-03-17 20:08] VITALS: BP 182/63
[2020-03-17] MEDS: RAMELTEON 8 MG TAB (ROZEREM) PO SCH (20:09)
[2020-03-17] MEDS: FLUoxetine 10 MG CAP PO SCH (20:10)
[2020-03-17] MEDS: SENNA 8.6 MG TAB (SENOKOT) PO SCH (20:12)
[2020-03-17] MEDS ORDERED: FLUoxetine 10 MG CAP PO SCH (21:00)
[2020-03-17] MEDS: SODIUM BICARBONATE 325 MG TAB PO SCH (21:00)
[2020-03-17 21:30] VITALS: BP 142/60
[2020-03-18 06:34] VITALS: BP 163/89
[2020-03-18] MEDS: HEPARIN SOD (PORCINE) 5000UNITS/ML 1ML VIAL/SYRINGE SC SCH ×2 (09:00→20:58)
[2020-03-18] MEDS: LACTOBACILLUS ACIDOPHILUS CAP (BACID) PO SCH ×2 (09:00→20:56)
[2020-03-18] MEDS: CALCITRIOL 0.25 MCG CAP (S0169) PO SCH (09:00)
[2020-03-18] MEDS: ursodioL 300 MG CAP PO SCH ×2 (09:00→20:56)
[2020-03-18] MEDS: OMEPRAZOLE 20 MG CAP PO SCH (09:00)
[2020-03-18] MEDS: ATORVASTATIN 20 MG TAB PO SCH (09:00)
[2020-03-18] MEDS: REMEDY PHYTOPLEX Z-GUARD PASTE 113GM TUBE (FROM STOREROOM PRODUCT) TOP SCH ×2 (09:00→20:58)
[2020-03-18] MEDS: VITAMIN D 1,000 INTERNATIONAL UNITS TABLET PO SCH (09:00)
[2020-03-18] MEDS: DOCUSATE SODIUM 100 MG CAP PO SCH ×2 (09:00→20:56)
[2020-03-18] MEDS: allopurinoL 100 MG TAB PO SCH (09:00)
[2020-03-18] MEDS: MYCOPHENOLATE 180 MG PO SCH ×2 (13:05→20:58)
[2020-03-18] MEDS: OLANZapine 2.5MG TABLET PO SCH ×2 (13:06→20:56)
[2020-03-18] MEDS: AUGMENTIN 875 MG TAB PO SCH ×2 (13:06→20:56)
[2020-03-18] MEDS: ASPIRIN 81 MG ENTERIC TAB PO SCH (13:06)
[2020-03-18] MEDS: SODIUM BICARBONATE 325 MG TAB PO SCH ×2 (13:07→20:56)
[2020-03-18] MEDS: amLODIPine 5 MG TAB PO SCH (13:07)
[2020-03-18] MEDS: predniSONE 5 MG TAB PO SCH (13:07)
[2020-03-18] MEDS: CARVedilol 12.5 MG TAB PO SCH ×2 (13:18→21:00)
[2020-03-18 14:00] VITALS: BP 161/81
--- NOTE | 2020-03-18 17:31 | CR.PDOC ---
General Date of Consultation: Mar 18, 2020 Consultation REASON FOR CONSULTATION/CHIEF COMPLAINT: Comanagement of multiple medical problems HISTORY OF PRESENT ILLNESS: Mr. Leonard is a 64 year old male with ESRD s/p transplant who was was initially at [facility] on 03/06/2020 for AMS, but then developed acute cholangitis. He required and ERCP and was transferred to [facility] for ERCP on 03/09/2020. ERCP found choledocholithiasis and on stricture which was dil ated. While at [facility], he had periods where he was A&Ox3 and periods where he was confused and not co-operative. He was discharged for rehabilitation for ADLs and mobility here at [facility]. This morning, Mr. Leonard was refusing his pills. Nurse was able to convince him to take some of the pills. He did not take the vitamins, PPI, statin, or probiotic. When I went to see him, he was in bed. Answer questions in yes or no manner. Patient reports chronic chills and dyspnea, but worse than prior. Otherwise denies fever, chest pain, abdominal pain, diarrhea, or dysuria. ALLERGIES: Please see below. HOME MEDICATIONS: Please see below. PAST MEDICAL HISTORY: 1. Acute cholangitis due to calculus of the bile duct with obstruction 2. Congenital kidney disease with ESRD s/p kidney transplant 3. Hypertension 4. History of Sarcoidosis 5. CAD s/p stents 6. Secondary hyperparathyroidism 7. Anxiety PAST SURGICAL HISTORY: 1. ERCP for acute choledocholithiasis on 03/10/2020 2. Kidney transplant x2 3. Removal first transplanted kidney due to infection 4. Removal of [place] kidneys due to infection 5. PD catheter placement and removal 6. Fistula creation. 7. Left shoulder repair. 8. Cardiac stent placement. FAMILY HISTORY: Patient is adopted SOCIAL HISTORY: Denies smoking. Denies alcohol, Denies recreational drug use REVIEW OF SYSTEMS: CONSTITUTIONAL: Reports chronic chills not worse than prior. Otherwise no fever HEENT: Denies sore throat CARDIOVASCULAR: Denies chest pain RESPIRATORY: Reports chronic dyspnea, unchanged from prior GENITOURINARY: Denies dysuria GASTROINTESTINAL: Denies abdominal pain MUSCULOSKELETAL: Denies musculoskeletal pain NEUROLOGICAL: Denies neuropathy CUTANEOUS: Denies rash PHYSICAL EXAMINATION: VITAL SIGNS: Please see below. GENERAL APPEARANCE: Comfortable, but depressed HEENT: Head normocephalic/atraumatic, EOMI, sclera clear RESPIRATORY: Lungs clear to auscultation bilaterally CARDIOVASCULAR: Regular rate and rhythm ABDOMEN: Soft, non-tender, normal bowel sounds EXTREMITIES: Mild bilateral pitting edema NEUROLOGICAL: CN 3-12 grossly intact PSYCHIATRIC: Depressed LABORATORY DATA: Please see below. ASSESSMENT/PLAN: 1. Debility - Currently in ARU for rehab for ADLs and mobility 2. Hypertension - Blood pressure elevated. Will increase amlodipine from 5mg to 10mg. Continue carvedilol 3. CAD s/p stents - Continue aspirin, atorvastatin, carvedilol, 4. ESRD s/p transplant - Continue allopurinol, calcitriol, prednisone 5. Cholelithiasis - Recently had acute choledocholithiasis. GI at [facility] recommended ursodiol. 6. Constipation - Continue Senna and Colace 7. Depression - Continue fluoxetine, olanzapine 8. DVT ppx - Heparin Vital Signs/I&O Vital Signs Date Time Temp Pulse Resp B/P (MAP) Pulse Ox O2 Delivery O2 Flow Rate FiO2 03/18/20 13:07 67 158/90 03/18/20 06:34 96.8 16 97 Room Air I&O- Last 24 Hours up to 6 AM 03/18/20 06:00 Intake Total 525 ml Balance 525 ml Allergies Coded Allergies: codeine (Verified Adverse Reaction, Mild, N/V, 03/31/19) meperidine (Verified Adverse Reaction, Mild, N/V, 03/31/19) morphine (Verified Adverse Reaction, Mild, N/V, 03/31/19) HAS TAKEN MORPHINE WITH ZOFRAN AND TOLERATED WELL oxycodone (Verified Adverse Reaction, Mild, N/V, 03/31/19) uses zofran prior to admin vancomycin (Verified Adverse Reaction, Mild, confusion, 03/31/19) Home Medications Scheduled Allopurinol (Allopurinol) 100 Mg Tab, 200 MG PO DAILY, (Reported) Amlodipine Besylate (Amlodipine Besylate) 5 Mg Tablet, 5 MG PO DAILY, (Reported) Amoxicillin/Potassium Clav (Augmentin 875-125 Tablet) 1 Each Tablet, 875 MG PO BID, (Reported) FOR 3 DAYS, END DATE 03/18/20 Aspirin (Aspir 81) 81 Mg Tab, 81 MG PO DAILY, (Reported) Atorvastatin Calcium (Atorvastatin Calcium) 40 Mg Tab, 40 MG PO DAILY, (Reported) Calcitriol (Rocaltrol) 0.5 Mcg Cap, 0.5 MCG PO DAILY, (Reported) Carvedilol (Carvedilol) 12.5 Mg Tab, 12.5 MG PO BID, (Reported) Cholecalciferol (Vitamin D3) (Vitamin D3) 1,000 Unit Tablet, 1,000 UNITS PO DAILY, (Reported) Melatonin (Melatonin) 3 Mg Tablet, 3 MG PO QHS, (Reported) Omeprazole (Omeprazole) 20 Mg Cap, 20 MG PO Q2D, (Reported) Prednisone (Prednisone) 5 Mg Tablet, 5 MG PO DAILY, (Reported) Ursodiol (Ursodiol) 300 Mg Capsule, 300 MG PO BID, (Reported) Scheduled PRN Nitroglycerin (Nitrostat) 0.4 Mg Subl, 0.4 MG SL Q5MP PRN for CHEST PAIN, (Reported) Quetiapine Fumarate (Quetiapine Fumarate) 25 Mg Tablet, 12.5 MG PO BID PRN for AGITATION, (Reported) JAMIE MENDIETA DO Mar 18, 2020 14:19
[2020-03-18 20:00] VITALS: BP 153/74
[2020-03-18] MEDS: FLUoxetine 10 MG CAP PO SCH (20:56)
[2020-03-18] MEDS: RAMELTEON 8 MG TAB (ROZEREM) PO SCH (20:56)
[2020-03-18] MEDS: SENNA 8.6 MG TAB (SENOKOT) PO SCH (20:56)
--- NOTE | 2020-03-18 22:59 | CR ---
NEPHROLOGY CONSULTATION DATE OF CONSULTATION: 03/17/2020 CONSULTATION REQUESTED BY: Lillian Iraheta MD. REASON FOR CONSULTATION: To assist in the management of transplant kidney. HISTORY OF PRESENT ILLNESS: Mr. Leonard is a 64-year-old gentleman with multiple chronic medical problems. He has longstanding history of end-stage renal disease; status post second kidney transplant, history of sarcoidosis, history of coronary artery disease with prior OK; status post angioplasty with stent, history of chronic kidney disease with baseline serum about 1.7 mm/dL. Patient was recently admitted to [facility] at the end of February with abdominal pain and was diagnosed with cholangitis and a small stone in the common bile duct. He was transferred to [facility] due to non- availability of GI service here at [facility]. Patient underwent ERCP and has been treated with antibiotics. His whole hospitalization has been complicated with altered mentation, for which he did have an MRI and CAT scan. There was a suspicion for posterior reversible leukoencephalopathy, however, medications were not changed as patient was seen by neurology and did not feel that there was convincing evidence for that diagnosis. In any event, patient has remained somewhat non-cooperative during his hospital stay at [facility] and he was felt to have acute delirium. Medications have been changed and now he is transferred to acute rehab unit here at [facility] due to deconditioning. Patient has significant weight loss and looks chronically ill. A nephrology consultation was requested and patient is seen this morning on his bedside. He is quite angry looking, sitting in the chair. Nursing staff reports that he was trying to abscond and they brought him back from near the elevator. Currently, he is holding his belongings in his lap including his shoes and he is expressing his wishes to go home and stop everything. PAST MEDICAL HISTORY: Significant for: 1. Longstanding hypertension. 2. End-stage renal disease; status post second kidney transplant. 3. History of chronic kidney disease with baseline creatinine of about 1.7 mg/dL. 4. History of coronary artery disease with prior OK; status post angioplasty with stent. 5. History of hyperlipidemia. 6. History of recurrent GI problems with nausea and vomiting and diarrhea. 7. History of depression and anxiety. 8. History of altered mentation with agitation and inability to cooperative for his care. 9. Recently he was diagnosed with common bile duct stone and cholangitis and has been treated with antibiotics. PAST SURGICAL HISTORY: Significant for: 1. Tonsillectomy. 2. Gastroplasty. 3. Bilateral cataract surgery. 4. Kidney transplant x2. 5. Multiple procedures for AV fistulas. 6. Coronary angioplasty with stent. FAMILY HISTORY: Noncontributory. PERSONAL AND SOCIAL HISTORY: Patient is and lives with his . He does not smoke or drink. There is no history of drug use. REVIEW OF SYSTEMS: At present, he is not able to provide much information. He is quite agitated and uncooperative. I have reviewed his records from prior admission here at [facility] before he was transferred to [facility] and I also discussed with nephrology fellow at [facility] a few days ago about his condition as patient was quite uncooperative over there. In any event, he had fever and chills due to which he was diagnosed with cholangitis after abdominal imaging. He was treated with antibiotics and underwent ERCP at [facility]. He has not been eating and has lost at least 11 kilograms of weight during last couple of months. Ears, nose and throat are unremarkable. Cardiovascular system significant for coronary artery disease, but denies any dyspnea or chest pain at present. Respiratory system is negative for cough or hemoptysis. GI system is as per history of present illness. system is significant for transplant kidney. Denies any dysuria or hematuria. Endocrine system is significant for secondary hyperparathyroidism and no diabetes or thyroid issues. Psychosocial system is significant for anxiety, depression, and now agitation with altered mentation. Skin is negative for rash or ulcers. PHYSICAL EXAMINATION: Patient is awake, sitting in the chair without any acute distress. He had been agitated this morning and quite uncooperative. Temperature 98.6 degrees Fahrenheit, heart rate 72 per minute, respiratory rate 18 per minute, blood pressure 150/80 mmHg and oxygen saturation 93%. Head is atraumatic. Pupils equal and reactive to light and sclera is anicteric. There is no oral thrush or ulcers. Heart sounds are regular with systolic murmur grade 1/6. Lungs sound clear to auscultation. Abdomen is soft and nontender, and bowel sounds are normal. Transplant kidney is nontender in left lower quadrant. Extremities without any cyanosis or clubbing. Neurologically, he is awake and has no focal neurological deficit. He is somewhat uncooperative and upset at present. LABORATORY DATA: Sodium 142, potassium 3.9, CO2 19, BUN 23, creatinine 1.47. Total protein 5.1 and albumin 2.5. Hemoglobin 11.7, hematocrit 37.3, WBC 8.2 and platelets 179,000. PROBLEMS: 1. Kidney transplant status: His kidney function is doing well. Considering his overall condition, I am going to stop his Tacrolimus at least for the time-being and see if that helps with his behavior. There was a question of reversible posterior leukoencephalopathy. Will continue with prednisone and Mycophenolate for now and see how he does over the next few days. 2. Hypertension: Blood pressure generally well controlled with occasional high reading. He remains on Amlodipine and will continue with the same. Low dose beta-clementine could be considered if needed, but I would just leave him on Amlodipine for now. 3. Altered mentation and agitation: Patient was felt to have delirium. He is being treated with various medications. I am going to stop his Tacrolimus for now and see if that will help. Will consider resuming it in a few days or consider to switch him altogether. Will continue with prednisone and Mycophenolate for now. 4. Recent history of cholangitis: Patient seems to be doing well now and currently asymptomatic. His antibiotic is now oral Augmentin, which he has to receive for a few more days. Thank you for involving me in the care of Mr. Leonard. I will follow him along with you. ROQUE
[2020-03-19 06:00] VITALS: BP 163/83
[2020-03-19 07:52] LABS: BASO % 0.3 % (0.0-1.0); EOS # 0.1 10^3/uL (0.0-0.5); EOS % 0.5 % (0.0-3.0); HEMATOCRIT 37.4 % (42.0-52.0); HEMOGLOBIN 11.9 g/dl (13.5-17.5); LYMPH # 1.8 10^3/uL (1.5-5.0); LYMPH % 17.5 % (24.0-44.0); MEAN CORPUSCULAR HEMOGLOBIN 28.5 pg (27.0-33.0); MEAN CORPUSCULAR HGB CONC 31.8 g/dl (32.0-36.5); MEAN CORPUSCULAR VOLUME 89.5 fl (80.0-96.0); MONO # 0.6 10^3/uL (0.0-0.8); MONO % 5.6 % (0.0-5.0); NEUTROPHILS # 7.7 10^3/uL (1.5-8.5); NEUTROPHILS % 74.9 % (36.0-66.0); PLATELET COUNT, AUTOMATED 222 10^3/uL (150-450); RED BLOOD COUNT 4.18 10^6/uL (4.30-6.10); WHITE BLOOD COUNT 10.3 10^3/uL (4.0-10.0)
[2020-03-19 08:16] LABS: CREATININE FOR GFR 1.95 MG/DL (0.70-1.30); GLOMERULAR FILTRATION RATE 36.9 (>49)
[2020-03-19] MEDS: DOCUSATE SODIUM 100 MG CAP PO SCH ×2 (09:00→20:11)
[2020-03-19] MEDS: ursodioL 300 MG CAP PO SCH ×2 (09:00→20:15)
[2020-03-19] MEDS: REMEDY PHYTOPLEX Z-GUARD PASTE 113GM TUBE (FROM STOREROOM PRODUCT) TOP SCH ×3 (09:00→20:12)
[2020-03-19] MEDS: HEPARIN SOD (PORCINE) 5000UNITS/ML 1ML VIAL/SYRINGE SC SCH ×2 (09:48→20:13)
[2020-03-19] MEDS: OMEPRAZOLE 20 MG CAP PO SCH (09:49)
[2020-03-19] MEDS: ATORVASTATIN 20 MG TAB PO SCH (09:50)
[2020-03-19] MEDS: SODIUM BICARBONATE 325 MG TAB PO SCH ×2 (09:50→20:11)
[2020-03-19] MEDS: CALCITRIOL 0.25 MCG CAP (S0169) PO SCH (09:50)
[2020-03-19] MEDS: AUGMENTIN 875 MG TAB PO SCH (09:50)
[2020-03-19] MEDS: predniSONE 5 MG TAB PO SCH (09:50)
[2020-03-19] MEDS: ASPIRIN 81 MG ENTERIC TAB PO SCH (09:50)
[2020-03-19] MEDS: OLANZapine 2.5MG TABLET PO SCH ×2 (09:50→20:11)
[2020-03-19] MEDS: MYCOPHENOLATE 180 MG PO SCH ×2 (09:51→20:11)
[2020-03-19] MEDS: amLODIPine 10 MG TAB PO SCH (09:55)
[2020-03-19] MEDS: CARVedilol 12.5 MG TAB PO SCH ×2 (09:56→20:19)
[2020-03-19] MEDS: VITAMIN D 1,000 INTERNATIONAL UNITS TABLET PO SCH (10:04)
--- NOTE | 2020-03-19 13:08 | IPNPDOC ---
Subjective Date Seen The patient was seen on 03/19/20. Subjective Chief Complaint/HPI Mr. Leonard is a 64 year old male with ESRD s/p transplant who was was initially at [facility] on 03/06/2020 for AMS, but then developed acute cholangitis and had an ERCP. This morning, he was working at the gym in ARU when he developed left upper quadrant (LUQ) abdominal pain. Rated 8/10 and felt dull in nature. He had associated radiation of sharp pain that went from the LUQ to the chest and left neck. He was given a sublingual nitroglycerin and the pain improved. When I saw him, he was in bed. He still has LUQ abdominal pain, but now better at 4/10. Chest pain and neck pain resolved. He said it felt like when he had his first heart attack several years ago. He had some shortness of breath went the event happened, but now has resolved. Denies lightheadedness. Obtained EKG, which does not demonstrate ST-elevation or depression. Appears similar to previous EKG on 03/04/2020 where the left anterior fascicular block is still present. On difference is the inverted T-waves on V4 through V6 has resolved. Constitutional: Denies: Chills, Fever ENT: Denies: Head Aches Pulmonary: Reports: Dyspnea (when had severe pain, but now resolved) Cardiovascular: Reports: Chest Pain (Resolved after sublingual nitroglycerin) Gastrointestinal: Reports: Abdominal Pain (Left upper quadrant, persistent but improved) Genitourinary: Denies: Dysuria Objective Physical Examination General Exam: Positive: Alert, Cooperative Eye Exam: Positive: EOMI ENT Exam: Positive: Atraumatic, Mucous membr. moist/pink Neck Exam: Positive: Supple Chest Exam: Positive: Clear to auscultation Heart Exam: Positive: Rate Normal, Regular Rhythm Abdomen Exam: Positive: Normal bowel sounds, Soft, Tenderness (LUQ tenderness, no tenderness on the right abdomen ) Extremity Exam: Positive: Edema (Mild bilateral pitting edema) Skin Exam: Positive: Nl turgor and temperature Neuro Exam: Positive: Normal Speech (Speech pattern normal but soft spoken) Psych Exam: Positive: Other (depressed) Assessment /Plan Assessment Mr. Leonard is a 64 year old male with ESRD s/p transplant who was was initially at [facility] on 03/06/2020 for AMS, but was transferred to [facility] for ERCP found to have choledocholithiasis. He is here for rehab. He does have history of CAD s/p stents. Today, while at the gym in ARU, he developed dull LUQ pain with sharp radiation to chest and neck which resolved with sublingual nitroglycerin. EKG similar to prior EKG. Will trend troponin. For abdominal pain, will obtain CT abd/pelvis without contrast (He has kidney transplant). Recent ERCP, will check lipase. History CAD, will check lactic acid. Plan/VTE VTE Prophylaxis Ordered?: Yes Plan 1. CAD s/p stents - He had LUQ pain with sharp radiation up to chest and left neck while exercising. EKG similar to prior except for resolution of T-wave inversions in V4 through V6. Old left anterior fascicular block. Will trend troponin. Will give 3 more baby aspirin to achieve full dose aspirin. 2. Abdominal pain - Had abdominal pain while exercising. Improved with rest and sublingual nitro. Recent ERCP, will check lipase. History of CAD will check lactic acid. Pending results from CT abd/pelvis without contrast 3. Debility - Currently in ARU for rehab for ADLs and mobility 4. Hypertension - Blood pressure better today with Amlodipine 10mg. Continue carvedilol 5. ESRD s/p transplant - Continue allopurinol, calcitriol, prednisone 6. Cholelithiasis - Recently had acute choledocholithiasis and stricture found by ERCP. GI at [facility] recommended ursodiol. 7. Constipation - Continue Senna and Colace 8. Depression - Continue fluoxetine, olanzapine 9. DVT ppx - Heparin VS, I&O, 24H, Fishbone Vital Signs/I&O Vital Signs Date Time Temp Pulse Resp B/P (MAP) Pulse Ox O2 Delivery O2 Flow Rate FiO2 03/19/20 11:49 122/78 03/19/20 09:56 76 03/19/20 06:00 97.4 18 97 Room Air I&O- Last 24 Hours up to 6 AM 03/19/20 06:00 Intake Total 120 ml Output Total 500 ml Balance -380 ml Laboratory Data 24H LABS Laboratory Tests 2 03/19/20 07:33: Immature Granulocyte % (Auto) 1.2, Neutrophils (%) (Auto) 74.9H, Lymphocytes (%) (Auto) 17.5L, Monocytes (%) (Auto) 5.6H, Eosinophils (%) (Auto) 0.5, Basophils (%) (Auto) 0.3, Neutrophils # (Auto) 7.7, Lymphocytes # (Auto) 1.8, Monocytes # (Auto) 0.6, Eosinophils # (Auto) 0.1, Basophils # (Auto) 0.0, Nucleated Red Blood Cells % (auto) 0.0, Anion Gap 12, Glomerular Filtration Rate 36.9L, Calcium Level 9.0 CBC/BMP Laboratory Tests 03/19/20 07:33 MARJAMIE DO Mar 19, 2020 13:08
[2020-03-19] MEDS ORDERED: ASPIRIN 81 MG CHEW TABLET PO ONE (13:15)
--- NOTE | 2020-03-19 13:23 | REPVR ---
PROCEDURE INFORMATION: Exam: CT Abdomen And Pelvis Without Contrast Exam date and time: 03/19/2020 12:49 PM Age: 64 years old Clinical indication: Abdominal pain; Localized; Left upper quadrant (luq); Additional info: Left upper quadrant abdominal pain TECHNIQUE: Imaging protocol: Computed tomography of the abdomen and pelvis without contrast. Radiation optimization: All CT scans at this facility use at least one of these dose optimization techniques: automated exposure control; mA and/or kV adjustment per patient size (includes targeted exams where dose is matched to clinical indication); or iterative reconstruction. COMPARISON: CT ABD/PEL W/PO CONTRAST ONLY 10/11/2018 10:44 PM FINDINGS: Limitations: Evaluation is somewhat limited by lack of IV contrast. Pleural space: A trace right pleural effusion is now present.The visualized lung bases demonstrate mild dependent atelectasis. Liver: Grossly unremarkable. Gallbladder and bile ducts: Cholecystectomy clips are again present. The previous biliary stent has been removed. The common bile duct appears somewhat prominent in caliber. Pancreas: Grossly unremarkable. Spleen: Grossly unremarkable. Adrenals: Grossly unremarkable. Kidneys and ureters: The [place] kidneys are again atrophic and calcified. A left pelvic transplant kidney is again present, again containing a cyst which measures 8.1 cm and does not require follow-up. There is also again a coarse calcification along the periphery of the transplant kidney, which appears otherwise grossly unremarkable. New lines Stomach and bowel: The unopacified small bowel is not significantly distended to suggest obstruction. There is again mild descending and sigmoid colonic diverticulosis without evidence for diverticulitis. Appendix: The appendix appears normal. Intraperitoneal space: No free air or significant free fluid. Vasculature: Coronary artery calcifications are again present. The abdominal aorta is nonaneurysmal. Atherosclerotic vascular calcifications are again present. Lymph nodes: No gross pathologic lymphadenopathy. Bladder: The urinary bladder contains a tiny focus of gas. Reproductive: Unremarkable as visualized. Bones/joints: Degenerative changes again involve the spine and right hip. A left hip prosthesis is again present. There is again some heterogeneous sclerosis in the right femoral head, suggesting avascular necrosis, without collapse. Soft tissues: There are similar small fat containing bilateral inguinal hernias. IMPRESSION: 1. Very small right pleural effusion, new as compared with 10/11/18. 2. Prior cholecystectomy with interval removal of previous biliary stent, with the common bile duct appearing somewhat prominent in caliber, which is often seen after cholecystectomy. 3. Similar appearance of atrophic [place] kidneys and left pelvic transplant kidney. 4. Tiny focus of gas in the urinary bladder, presumably related to a recent catheterization. Confirm clinically, or otherwise consider alternate cause. 5. Persistent mild left-sided colonic diverticulosis without evidence for diverticulitis. Electronically signed by: Diallo Da Silva On 03/19/2020 13:23:43 PM
[2020-03-19 14:00] VITALS: BP 150/79
--- NOTE | 2020-03-19 14:33 | IPN ---
DATE: 03/18/2020 SUBJECTIVE: Patient was seen and examined at the bedside today morning. He was laying in bed and actually sleeping. I was told by the nursing staff that patient was very agitated yesterday, he did not sleep well at night and currently he is sleeping. His tacrolimus was also held yesterday. No review of systems was obtained because I did not want to disturb the patient while he was resting. Vital signs: Temperature is 96.8 degrees Fahrenheit, blood pressure 163/89, pulse is 58, respiratory rate of 16, saturating 97% on room air. Intake and output: Urine output recorded is 500 mL. Weight in the bed scale is not available. PHYSICAL EXAMINATION: General: Patient is sleeping in the bed, comfortable at this time. Head and neck exam: Patient is normocephalic, atraumatic. Eyes are closed. Neck is supple. There is no jugular venous distension (JVD). Cardiovascular: S1, S2, regular rate. No edema of the lower extremities. Respiratory: Chest is clear to auscultation bilaterally. Bilateral equal air entry. No rales or rhonchi. Abdomen: Soft, positive bowel sounds. Musculoskeletal: No clubbing or cyanosis. 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 He is calm. LABORATORY REVIEW: CBC is from yesterday with a hemoglobin of 11.7. BMP is also from yesterday with a potassium of 3.9, bicarbonate of 19, creatinine of 1.46. CURRENT INPATIENT MEDICATIONS: Patients medications were all reviewed by myself. His tacrolimus was stopped yesterday. Fluoxetine is 10 mg by mouth nightly. He continues to be on Augmentin 875 mg by mouth twice a day and he was started on sodium bicarbonate 325 mg by mouth twice a day. No other significant change in the medications today as compared with yesterday. ASSESSMENT AND PLAN: 1. Renal allograft status. Patient continues to be on prednisone 5 mg by mouth daily along with mycophenolate. Tacrolimus was held yesterday because of possible association with altered mental status. 2. Hypertension. Continue current dose of amlodipine 5 mg by mouth daily, Coreg 12.5 mg by mouth twice a day. 3. Acute cholangitis. Patient is status post ERCP at [facility]. He continues to be on Augmentin. White cell count is improved and total bilirubin and aspartate aminotransferase (AST)/alanine aminotransferase (ALT) are within the acceptable range. 4. Chronic gout secondary to chronic kidney disease. Continue current dose of allopurinol 200 mg by mouth daily. 5. Secondary hyperparathyroidism. Continue current dose of calcitriol 0.5 mcg by mouth daily. 6. Delirium and agitation. Management is as per rehabilitation and medical team. Tacrolimus was stopped. He was worked up for posterior reversible leukoencephalopathy with MRI last time, although as per neurology he does not have any evidence of posterior reversible leukoencephalopathy, however because of his agitation and delirium Prograf has been held since yesterday. MTDD
[2020-03-19 20:00] VITALS: BP 143/77
[2020-03-19] MEDS: FLUoxetine 10 MG CAP PO SCH (20:11)
[2020-03-19] MEDS: RAMELTEON 8 MG TAB (ROZEREM) PO SCH (20:11)
[2020-03-19] MEDS: SENNA 8.6 MG TAB (SENOKOT) PO SCH (20:12)
[2020-03-20 05:41] VITALS: BP 143/73
[2020-03-20] MEDS ORDERED: LORazepam 2 MG/ML VIAL IV STA (06:04)
[2020-03-20] MEDS ORDERED: LORazepam 2 MG/ML VIAL IM STA ×2 (06:05→06:16)
[2020-03-20] MEDS: HEPARIN SOD (PORCINE) 5000UNITS/ML 1ML VIAL/SYRINGE SC SCH ×2 (09:00→21:34)
[2020-03-20] MEDS ORDERED: PNEUMOCOCCAL VACCINE 0.5ML SYRINGE (PNEUMOVAX 23) IM ONE (09:00)
[2020-03-20] MEDS: OLANZapine 5 MG TAB PO SCH ×2 (09:00→21:27)
[2020-03-20] MEDS: REMEDY PHYTOPLEX Z-GUARD PASTE 113GM TUBE (FROM STOREROOM PRODUCT) TOP SCH ×3 (09:00→21:00)
[2020-03-20] MEDS: allopurinoL 100 MG TAB PO SCH (09:00)
[2020-03-20] MEDS: LACTOBACILLUS ACIDOPHILUS CAP (BACID) PO SCH (09:00)
[2020-03-20] MEDS ORDERED: FLUBLOK(EGG FREE)(QUAD)INFLUENZA VACC 0.5ML SYRINGE 18YRS & OLDER IM ONE (09:00)
[2020-03-20 09:15] LABS: BASO % 0.1 % (0.0-1.0); EOS # 0.1 10^3/uL (0.0-0.5); EOS % 1.3 % (0.0-3.0); HEMATOCRIT 28.6 % (42.0-52.0); LYMPH # 1.2 10^3/uL (1.5-5.0); LYMPH % 18.5 % (24.0-44.0); MEAN CORPUSCULAR HEMOGLOBIN 28.6 pg (27.0-33.0); MEAN CORPUSCULAR HGB CONC 32.2 g/dl (32.0-36.5); MEAN CORPUSCULAR VOLUME 88.8 fl (80.0-96.0); MONO # 0.7 10^3/uL (0.0-0.8); MONO % 10.3 % (0.0-5.0); NEUTROPHILS # 4.6 10^3/uL (1.5-8.5); NEUTROPHILS % 68.9 % (36.0-66.0); PLATELET COUNT, AUTOMATED 160 10^3/uL (150-450); RED BLOOD COUNT 3.22 10^6/uL (4.30-6.10); WHITE BLOOD COUNT 6.7 10^3/uL (4.0-10.0)
[2020-03-20 09:35] LABS: CALCIUM LEVEL 8.7 MG/DL (8.8-10.2); CREATININE FOR GFR 2.04 MG/DL (0.70-1.30); GLOMERULAR FILTRATION RATE 35.1 (>49); HEMOGLOBIN 9.2 g/dl (13.5-17.5); POTASSIUM SERUM 3.6 MEQ/L (3.5-5.1)
--- NOTE | 2020-03-20 10:09 | IPN ---
DATE: 03/19/2020 SUBJECTIVE: Patient was seen and examined at the bedside today morning. He is a little bit more awake and alert today, sitting in the sofa in the morning. Still has poor appetite. Creatinine has bumped up to 1.9 which is actually close to his baseline. Patient still has mild persistent acidosis. OBJECTIVE: Vital signs: Temperature is 97.4 degrees Fahrenheit, blood pressure 163/83, pulse is 60, respiratory rate of 18, saturating 97% on room air. Intake and output: Urine output is not recorded. He has had one void so far since overnight. Weight in the bed scale is 65.4 kg. PHYSICAL EXAMINATION: General: Patient is awake, alert, oriented times two, sitting up in the bed. Head and neck exam: Extraocular muscles intact. Pupils equally round and reactive to light. Mucous membranes are moist. Neck is supple. There is no jugular venous distension (JVD). Cardiovascular: S1, S2, regular rate. No edema of the bilateral lower extremities. Respiratory: Chest is clear to auscultation bilaterally. Bilateral equal air entry. No rales or rhonchi. Abdomen: Soft, positive bowel sounds. Renal allograft is nontender and has no bruit. Musculoskeletal: No clubbing or cyanosis. Pulses are 2+. Central nervous system (OUTREACH MANAGER): No focal deficits. He moves extremities and follows commands. Psychiatric: He has a depressed mood and slow to respond. LABORATORY REVIEW: CBC showed WBC 10.3, hemoglobin 11.9, platelets are 222. BMP showed sodium 142, potassium 4, chloride 112, bicarbonate 18, BUN 28, creatinine 1.9. CURRENT INPATIENT MEDICATIONS: Patients medications were all reviewed by myself. He continues to be on sodium bicarbonate 325 mg by mouth twice a day. I have decreased his lactobacillus dose to one capsule daily. His Augmentin has been stopped now. Amlodipine has been changed to 10 mg by mouth daily and I decreased his allopurinol to 100 mg by mouth daily. ASSESSMENT AND PLAN: 1. Renal allograft status. Patients Prograf is on hold because of confusion and altered mental status. He continues to be on mycophenolate and prednisone. Continue current dose. Creatinine has bumped up from 1.4 to 1.9. His baseline creatinine is actually around 1.8 to 2 so he is close to his baseline. 2. Metabolic acidosis. Patient continues to be on sodium bicarbonate. I have decreased his Bacid which can sometimes cause lactic acidosis and I have also decreased allopurinol dose to 100 mg daily which can cause acidosis as well. Continue to monitor for now. No need of bicarbonate administration at this time. 3. Hypertension. Blood pressure is controlled with current dose of amlodipine 10 mg by mouth daily, Coreg 12.5 mg by mouth twice a day. 4. Acute cholangitis status post ERCP. Patient is clinically getting better. Oral Augmentin has been stopped. Liver function tests (LFTs) are within the acceptable range. 5. Chronic gout secondary to chronic kidney disease. Allopurinol dose has been decreased to 100 mg by mouth daily because of acidosis. 6. Secondary hyperparathyroidism. Continue current dose of calcitriol 0.5 mcg by mouth daily. 7. Confusion and altered mental status. Most of the antipsychotic medications are on hold. Prograf has been held. Clinically he is slowly making progress. MTDD
[2020-03-20] MEDS ORDERED: SODIUM CHLORIDE 0.45% 1000 ML IV ONE (11:00)
[2020-03-20 14:00] VITALS: BP 140/65
[2020-03-20] MEDS: MYCOPHENOLATE 180 MG PO SCH ×2 (15:12→21:19)
[2020-03-20] MEDS: SODIUM BICARBONATE 325 MG TAB PO SCH ×2 (15:13→21:26)
[2020-03-20] MEDS: amLODIPine 10 MG TAB PO SCH (15:13)
[2020-03-20] MEDS: CALCITRIOL 0.25 MCG CAP (S0169) PO SCH (15:14)
[2020-03-20] MEDS: OMEPRAZOLE 20 MG CAP PO SCH (15:14)
[2020-03-20] MEDS: ursodioL 300 MG CAP PO SCH ×2 (15:15→21:26)
[2020-03-20] MEDS: VITAMIN D 1,000 INTERNATIONAL UNITS TABLET PO SCH (15:15)
[2020-03-20] MEDS: ASPIRIN 81 MG ENTERIC TAB PO SCH (15:16)
[2020-03-20] MEDS: ATORVASTATIN 20 MG TAB PO SCH (15:16)
[2020-03-20] MEDS: predniSONE 5 MG TAB PO SCH (15:16)
[2020-03-20] MEDS: CARVedilol 12.5 MG TAB PO SCH ×2 (15:17→21:23)
[2020-03-20] MEDS: DOCUSATE SODIUM 100 MG CAP PO SCH ×2 (15:19→21:00)
[2020-03-20 20:00] VITALS: BP 131/74
[2020-03-20] MEDS: SENNA 8.6 MG TAB (SENOKOT) PO SCH (21:00)
[2020-03-20] MEDS: RAMELTEON 8 MG TAB (ROZEREM) PO SCH (21:33)
[2020-03-20] MEDS: TEMAZEPAM 15 MG CAP PO SCH (21:33)
[2020-03-21 05:47] VITALS: BP 140/88
[2020-03-21] MEDS: SODIUM BICARBONATE 325 MG TAB PO SCH ×2 (08:45→20:07)
[2020-03-21] MEDS: MYCOPHENOLATE 180 MG PO SCH ×2 (08:45→20:08)
[2020-03-21] MEDS: ursodioL 300 MG CAP PO SCH ×2 (08:45→20:10)
[2020-03-21] MEDS: VITAMIN D 1,000 INTERNATIONAL UNITS TABLET PO SCH (08:45)
[2020-03-21] MEDS: allopurinoL 100 MG TAB PO SCH (08:46)
[2020-03-21] MEDS: DOCUSATE SODIUM 100 MG CAP PO SCH ×2 (08:46→20:08)
[2020-03-21] MEDS: OLANZapine 5 MG TAB PO SCH ×2 (08:46→20:07)
[2020-03-21] MEDS: ATORVASTATIN 20 MG TAB PO SCH (08:46)
[2020-03-21] MEDS: ASPIRIN 81 MG ENTERIC TAB PO SCH (08:46)
[2020-03-21] MEDS: OMEPRAZOLE 20 MG CAP PO SCH (08:46)
[2020-03-21] MEDS: LACTOBACILLUS ACIDOPHILUS CAP (BACID) PO SCH (08:46)
[2020-03-21] MEDS: CALCITRIOL 0.25 MCG CAP (S0169) PO SCH (08:46)
[2020-03-21] MEDS: predniSONE 5 MG TAB PO SCH (08:47)
[2020-03-21] MEDS: CARVedilol 12.5 MG TAB PO SCH ×2 (08:47→20:07)
[2020-03-21] MEDS: amLODIPine 10 MG TAB PO SCH (08:47)
[2020-03-21] MEDS: HEPARIN SOD (PORCINE) 5000UNITS/ML 1ML VIAL/SYRINGE SC SCH ×2 (08:47→20:08)
[2020-03-21] MEDS: REMEDY PHYTOPLEX Z-GUARD PASTE 113GM TUBE (FROM STOREROOM PRODUCT) TOP SCH ×3 (08:47→20:10)
[2020-03-21 10:48] LABS: BASO % 0.3 % (0.0-1.0); EOS % 0.5 % (0.0-3.0); HEMOGLOBIN 10.9 g/dl (13.5-17.5); LYMPH # 1.1 10^3/uL (1.5-5.0); MEAN CORPUSCULAR HEMOGLOBIN 28.8 pg (27.0-33.0); MEAN CORPUSCULAR HGB CONC 32.1 g/dl (32.0-36.5); MEAN CORPUSCULAR VOLUME 89.7 fl (80.0-96.0); MONO # 0.5 10^3/uL (0.0-0.8); MONO % 7.4 % (0.0-5.0); NEUTROPHILS # 4.5 10^3/uL (1.5-8.5); NEUTROPHILS % 72.8 % (36.0-66.0); PLATELET COUNT, AUTOMATED 173 10^3/uL (150-450); RED BLOOD COUNT 3.79 10^6/uL (4.30-6.10); WHITE BLOOD COUNT 6.2 10^3/uL (4.0-10.0)
[2020-03-21 11:06] LABS: CALCIUM LEVEL 9.3 MG/DL (8.8-10.2); CREATININE FOR GFR 2.17 MG/DL (0.70-1.30); GLOMERULAR FILTRATION RATE 32.7 (>49); PHOSPHORUS LEVEL 2.7 MG/DL (2.5-4.9); POTASSIUM SERUM 3.7 MEQ/L (3.5-5.1)
--- NOTE | 2020-03-21 14:42 | IPN ---
DATE: 03/20/2020 SUBJECTIVE: Patient was seen and examined at the bedside today morning. He just took a dose of Ativan today morning and he was sleeping after taking the dose. I was told by the one-to-one nursing staff that patient was agitated overnight. He is not eating much and because of poor oral intake, his creatinine is also trending up. Patient is otherwise afebrile and hemodynamically stable. OBJECTIVE: Vital signs: Temperature 97 degrees Fahrenheit, blood pressure 143/73, pulse 82, respiratory rate of 18, saturating 99% on room air. Intake and output: His intake recorded only as 240 cc yesterday. He had five voids yesterday. His weight in the bed scale is 65.4 kg. PHYSICAL EXAMINATION: GENERAL: Patient is lying in bed, very sleepy. HEAD AND NECK: Pupils are equally round and reactive to light. Mucous membranes are moist. Neck is supple. There is no significant JVD. CARDIOVASCULAR: S1, S2, regular rate. No edema of the bilateral lower extremities. RESPIRATORY: Chest is clear to auscultation bilaterally. Bilateral equal air entry. No rales or rhonchi. ABDOMEN: Soft, positive bowel sounds. Bedside bladder scan was done, there was more than 350 cc of urine in the bladder. MUSCULOSKELETAL: No clubbing or cyanosis. Pulses are 2+. 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 Not very cooperative during the exam. LABORATORY REVIEW: CBC showed WBC 6.7, hemoglobin 9.2, platelets 160,000. BMP showed sodium 142, potassium 3.6, chloride 111, bicarbonate 21, BUN 28, creatinine 2, calcium 8.7. IMAGING STUDIES: A cat scan of the abdomen and pelvis was done yesterday, which showed very small right pleural effusion, prior cholecystectomy, similar appearance of poarch kidneys which are atrophic, tiny focus of gas in the urinary bladder. CURRENT INPATIENT MEDICATIONS: Patients medications were all reviewed by myself. Because of the poor oral intake, I ordered a bolus of 500 cc of half normal saline. His Olanzapine dose has been increased to 5 mg p.o. twice a day. He continues to be on Mycophenolate and prednisone. Tacrolimus is on hold. ASSESSMENT AND PLAN: 1. Renal allograft status: Tacrolimus is on hold because of altered mental status. He continues to be on Mycophenolate and prednisone. Continue current regimen. 2. Metabolic acidosis: It is better with use of sodium bicarbonate and decreasing the dose of Bacid. 3. Hypertension: Blood pressure is controlled Amlodipine and Carvedilol. 4. Acute kidney injury superimposed on chronic kidney disease: Patient's creatinine is rising for the last two days, it has bumped up to 2, which is more than his baseline. He has been ordered half normal saline 500 cc bolus and I also encouraged him to void. If he is unable to void, he might need straight catheterization as well. 5. Confusion and altered mental status: Antipsychotic medications are as per medical team. Prograf is on hold. MTDD
[2020-03-21 14:44] VITALS: BP 131/74
[2020-03-21 20:03] VITALS: BP 160/82
[2020-03-21] MEDS: TEMAZEPAM 15 MG CAP PO SCH (20:07)
[2020-03-21] MEDS: RAMELTEON 8 MG TAB (ROZEREM) PO SCH (20:08)
[2020-03-21] MEDS: SENNA 8.6 MG TAB (SENOKOT) PO SCH (20:08)
[2020-03-22 06:29] VITALS: BP 141/79
[2020-03-22 07:04] LABS: BASO % 0.4 % (0.0-1.0); EOS % 0.4 % (0.0-3.0); HEMATOCRIT 32.4 % (42.0-52.0); HEMOGLOBIN 10.3 g/dl (13.5-17.5); LYMPH % 21.5 % (24.0-44.0); MEAN CORPUSCULAR HEMOGLOBIN 28.5 pg (27.0-33.0); MEAN CORPUSCULAR HGB CONC 31.8 g/dl (32.0-36.5); MEAN CORPUSCULAR VOLUME 89.8 fl (80.0-96.0); MONO # 0.3 10^3/uL (0.0-0.8); MONO % 6.9 % (0.0-5.0); NEUTROPHILS # 3.2 10^3/uL (1.5-8.5); NEUTROPHILS % 68.9 % (36.0-66.0); PLATELET COUNT, AUTOMATED 158 10^3/uL (150-450); RED BLOOD COUNT 3.61 10^6/uL (4.30-6.10); WHITE BLOOD COUNT 4.7 10^3/uL (4.0-10.0)
[2020-03-22 07:28] LABS: CREATININE FOR GFR 2.03 MG/DL (0.70-1.30); GLOMERULAR FILTRATION RATE 35.3 (>49); POTASSIUM SERUM 3.4 MEQ/L (3.5-5.1)
[2020-03-22] MEDS: amLODIPine 10 MG TAB PO SCH (07:29)
[2020-03-22] MEDS: SODIUM BICARBONATE 325 MG TAB PO SCH ×2 (07:29→20:57)
[2020-03-22] MEDS: allopurinoL 100 MG TAB PO SCH (07:29)
[2020-03-22] MEDS: predniSONE 5 MG TAB PO SCH (07:30)
[2020-03-22] MEDS: ASPIRIN 81 MG ENTERIC TAB PO SCH (07:30)
[2020-03-22] MEDS: DOCUSATE SODIUM 100 MG CAP PO SCH ×2 (07:30→20:57)
[2020-03-22] MEDS: OMEPRAZOLE 20 MG CAP PO SCH (07:30)
[2020-03-22] MEDS: VITAMIN D 1,000 INTERNATIONAL UNITS TABLET PO SCH (07:30)
[2020-03-22] MEDS: OLANZapine 5 MG TAB PO SCH ×2 (07:31→20:56)
[2020-03-22] MEDS: CARVedilol 12.5 MG TAB PO SCH ×2 (07:31→21:00)
[2020-03-22] MEDS: CALCITRIOL 0.25 MCG CAP (S0169) PO SCH (07:31)
[2020-03-22] MEDS: LACTOBACILLUS ACIDOPHILUS CAP (BACID) PO SCH (07:31)
[2020-03-22] MEDS: ATORVASTATIN 20 MG TAB PO SCH (07:31)
[2020-03-22] MEDS: HEPARIN SOD (PORCINE) 5000UNITS/ML 1ML VIAL/SYRINGE SC SCH ×2 (07:32→20:57)
[2020-03-22] MEDS: MYCOPHENOLATE 180 MG PO SCH ×2 (07:32→20:58)
[2020-03-22] MEDS: ursodioL 300 MG CAP PO SCH ×2 (07:35→20:57)
[2020-03-22] MEDS: REMEDY PHYTOPLEX Z-GUARD PASTE 113GM TUBE (FROM STOREROOM PRODUCT) TOP SCH ×3 (07:35→20:58)
[2020-03-22] MEDS ORDERED: NON-FORMULARY 1 EA EA PO SCH (09:00)
[2020-03-22] MEDS ORDERED: POTASSIUM CHLORIDE 10 MEQ SR TABLET PO ONE (09:15)
--- NOTE | 2020-03-22 11:22 | IPN ---
DATE: 03/21/2020 SUBJECTIVE: Patient was seen and examined at the bedside today morning in the rehab unit. He had just come back after draining his access site. He is more awake and alert today. He still seems depressed, minimally verbal. Otherwise, he is cooperative during the exam. Tacrolimus continues to be on hold at this time. OBJECTIVE: Vital signs: Temperature 97.5 degrees Fahrenheit, blood pressure 140/88, pulse 89, respiratory rate 17, saturating 98% on room air. Intake and output: Urine output recorded as 200 mL. Weight in the bed scale is not available. PHYSICAL EXAMINATION: GENERAL: Patient is awake, sitting up in the sofa, in no apparent distress. HEAD AND NECK: Extraocular muscles intact. Pupils equally round and reactive to light. Mucous membranes are moist. Neck is supple. There is no JVD. CARDIOVASCULAR: S1, S2, regular rate. No edema of the bilateral lower extremities. RESPIRATORY: Chest is clear to auscultation bilaterally. Bilateral equal air entry. No rales or rhonchi. ABDOMEN: Soft, positive bowel sounds, nontender. No organomegaly. MUSCULOSKELETAL: No clubbing or cyanosis. Pulses are 2+. 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 Otherwise, moves extremities and follows commands, sitting up in the sofa. LABORATORY REVIEW: CBC showed WBC 6.2, hemoglobin 10.9, platelets 173,000. BMP showed sodium 143, potassium 3.7, chloride 111, bicarbonate 22, BUN 25, creatinine 2.1, calcium 9.3, phosphorus 2.7, albumin 3. CURRENT INPATIENT MEDICATIONS: Patients medications were all reviewed by myself. He is on Zyprexa 5 mg p.o. twice a day; it was started yesterday. He is also on Temazepam 15 mg p.o. q.h.s., which was started yesterday. I had started patient on Sirolimus 2 mg p.o. daily; it is not available in the formulary so far. ASSESSMENT AND PLAN: 1. Renal allograft status: Patient continues to be on prednisone and Mycophenolate. Tacrolimus is on hold because of possible neurotoxicity. I switched the patient to Sirolimus to be given 2 mg p.o. daily and I have talked to the pharmacy. As soon as medicine is available, we shall start giving the patient medicine. 2. Metabolic acidosis: Bicarb level is controlled with current dose of sodium bicarbonate 325 mg p.o. twice a day. 3. Hypertension: Continue current dose of Coreg and Amlodipine. Blood pressures are controlled. 4. 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 daily. 5. Altered mental status, agitation and psychosis: Patient is currently on Restoril 15 mg p.o. q.h.s., Rozerem 8 mg p.o. q.h.s. for insomnia, and he was started on Olanzapine 5 mg p.o. twice a day. The rest of the management is as per medical team. 6. Secondary hyperparathyroidism: Continue current dose of Calcitriol 0.5 mcg p.o. daily. MTDD
--- NOTE | 2020-03-22 11:38 | IPNPDOC ---
PM&R Progress Note DATE OF SERVICE: Mar 21, 2020 [employer] Progress Note Subjective: Patient seen in the late morning reporting he slept well last night since starting restoril and was able to participate in therapy. He reports feeling a little queasy and is stating he feels tired. He denies having chest pain. He was seen later in the day with his bedside who was encouraged with his progress and wondering if he should follow with a psychiatrist. REVIEW OF SYSTEMS: The following is a completed review of systems and has been reviewed. Review of systems otherwise unremarkable. PAIN: Patient self reports no pain EYES: No recent vision changes EARS, NOSE, & THROAT: No throat pain, or dysphagia, or rhinorrhea CARDIOVASCULAR: Denies chest pain or palpitations PULMONARY: Denies shortness of breath GASTROINTESTINAL: Denies constipation/diarrhea GENITOURINARY: denies dysuria MUSCULOSKELETAL: generalized weakness NEUROLOGICAL: +encephalopathic HEMATOLOGICAL: +chronic anemia SKIN: denies rash PSYCHIATRIC: flat affect All other review of systems found to be negative. PHYSICAL EXAMINATION: VITAL SIGNS: Please see below. GENERAL: flat affect HEENT: PERRL. Extraocular movements intact. Clear conjunctiva CARDIOVASCULAR: Regular rate and rhythm. No murmurs, rubs, or gallops LUNGS: Clear to auscultation bilaterally. No wheezes. No rhonchi ABDOMEN: Soft,mildly tender in RUQ nondistended. Positive bowel sounds. Normal active bowel sounds NEUROLOGICAL: Alert and oriented times three. Cranial nerves II through XII grossly intact. Sensation grossly intact EXTREMITIES: 5-\5 strength bilateral upper extremities. 5-\5 strength right lower extremity.5-/5 strength in left lower extremity. SKIN: intact ASSESSMENT:64-year-old M with past medical history of ESRD s/p bilat kidney transplants who presents status post cholangitis due to choledocolithiasis with sepsis and encephalopathy PLAN: 1.Rehab- PT/OT advance gait and ADLs, strengthen/stretch/maintain ROM all 4 limbs- able to ambulate without AD inconsistently at times needs a RW 2. Neuro/Psych- patient with reported hx of longstanding Klonipin use which per his he was mentally stable on this dose until he started to become paranoid and was switched to Paxil which was discontinued prior to admission on ARU due to concern for medication related encephalopathy contributing to infectious cause of encephalopathy -over the weekend reporting from nursing patient made several eloping attempts and was not sleeping through the night- d/c'd prozac qHS as patient seems to have poor response even to low dose SSRIs despite concurrent anti-psychotic use, and instead added long-acting Benzo, Restoril 15mg qhS which seems to be effective for sleep and overall daytime mood- c/u Zyprexa which was increased to 5mg BID-patient seems to be tolerating this dose- will recommend outpatient psychiatry to monitor his medications and manage any dose adjustments or medication changes going forward 3. CArdiac- hx of NSTEMI and CAD- c/u ASA and carvedilol -Hx HTN c/u amlopidine -medicine consulted to assist in overall management - patient with recent reports of chest pain, troponins negative, patient currently asymptomatic, c/u to monitor 4. Resp -monitor for infection 5. GI- c/p ERCP for choledocholithiasis and course of IV antibiotics for cholang itis, s/p course of Augmentin-f/u GI with Dr. Corcoran to discuss recent ERCP and tumor marker results, monitor for worsening abdominal symptoms- patient without leukocytosis and abdominal exam with mild RUQ tenderness, if clinical picture worsens, will ask for input from ID, stable so far -c/u ursodiol -ppx omeprazole 6. Renal- c/u tacrolimus/mycophenolate/prednisone for renal transplants, renal consulted to follow-along while inhouse -c/u calcitriol -c/u allopurinol 7. DVT ppx- heparin 8. Pain- tylenol prn 9. Psych- c/u Restoril and Zyprexa 10. Dispo- 03-28-20 to home, progressing towards goals Allergies Coded Allergies: codeine (Verified Adverse Reaction, Mild, N/V, 03/31/19) meperidine (Verified Adverse Reaction, Mild, N/V, 03/31/19) morphine (Verified Adverse Reaction, Mild, N/V, 03/31/19) HAS TAKEN MORPHINE WITH ZOFRAN AND TOLERATED WELL oxycodone (Verified Adverse Reaction, Mild, N/V, 03/31/19) uses zofran prior to admin vancomycin (Verified Adverse Reaction, Mild, confusion, 03/31/19) Vital Signs Vital Signs Date Time Temp Pulse Resp B/P (MAP) Pulse Ox O2 Delivery O2 Flow Rate FiO2 03/22/20 07:29 62 138/79 03/22/20 06:29 97.4 18 97 Room Air Laboratory Data CBC/BMP Laboratory Tests 03/22/20 06:42 Labs 24H Laboratory Tests 2 03/21/20 13:37: Bedside Glucose (Misc Panel) 124H 03/22/20 06:42: Immature Granulocyte % (Auto) 1.9, Neutrophils (%) (Auto) 68.9H, Lymphocytes (%) (Auto) 21.5L, Monocytes (%) (Auto) 6.9H, Eosinophils (%) (Auto) 0.4, Basophils (%) (Auto) 0.4, Neutrophils # (Auto) 3.2, Lymphocytes # (Auto) 1.0L, Monocytes # (Auto) 0.3, Eosinophils # (Auto) 0.0, Basophils # (Auto) 0.0, Nucleated Red Blood Cells % (auto) 0.0, Anion Gap 7L, Glomerular Filtration Rate 35.3L, Calcium Level 9.0 Current Medications Current Medications Current Medications Medications (Trade) Dose Ordered Sig/Shanae Route PRN Reason Start Time Stop Time Status Last Admin Dose Admin Acetaminophen (Tylenol Tab) 650 mg Q4HP PRN PO fever/MILD PAIN (PS 1-4) 03/16/20 14:30 03/17/20 20:13 Allopurinol (Zyloprim) 100 mg DAILY PO 03/20/20 09:00 03/22/20 07:29 Allopurinol (Zyloprim) 200 mg DAILY PO 03/17/20 09:00 03/19/20 09:19 DC 03/18/20 09:00 Amlodipine Besylate (Norvasc) 5 mg DAILY PO 03/17/20 09:00 03/18/20 17:32 DC 03/18/20 13:07 Amlodipine Besylate (Norvasc) 10 mg DAILY PO 03/19/20 09:00 03/22/20 07:29 Amoxicillin/ Clavulanate Potassium (Augmentin) 875 mg BID PO 03/16/20 21:00 03/19/20 09:01 DC 03/19/20 09:50 Aspirin (Ecotrin) 81 mg DAILY PO 03/17/20 09:00 03/22/20 07:30 Atorvastatin Calcium (Lipitor) 40 mg DAILY PO 03/17/20 09:00 03/22/20 07:31 Calcitriol (Rocaltrol) 0.5 mcg DAILY PO 03/17/20 09:00 03/22/20 07:31 Carvedilol (COReg) 12.5 mg BID PO 03/16/20 21:00 03/22/20 07:31 Docusate Sodium (Colace) 100 mg BID PO 03/16/20 21:00 03/22/20 07:30 Fluoxetine HCl (PROzac) 10 mg QHS PO 03/17/20 21:00 03/17/20 10:25 DC Fluoxetine HCl (PROzac) 10 mg QHS PO 03/17/20 21:00 03/20/20 11:35 DC 03/19/20 20:11 Heparin Sodium (Porcine) (Heparin) 5,000 units Q12H SC 03/16/20 21:00 03/22/20 07:32 Home Med (Med Rec Complete!) ASDIRECTED XX 03/16/20 15:30 03/16/20 15:31 DC Lactobacillus Acidophilus (Bacid) 1 ea DAILY PO 03/20/20 09:00 03/22/20 07:31 Lactobacillus Acidophilus (Bacid) 1 ea TID PO 03/16/20 16:00 03/19/20 09:21 DC 03/18/20 20:56 Lorazepam (Ativan) 2 mg STAT STAT IM 03/20/20 06:05 03/20/20 06:08 DC Lorazepam (Ativan) 2 mg STAT STAT IM 03/20/20 06:16 03/20/20 06:17 DC 03/20/20 06:37 Lorazepam (Ativan) 2 mg STAT STAT IV 03/20/20 06:04 03/20/20 06:09 DC Miscellaneous (Unresolved Patient Own Med Order) SEE LABEL COMMENTS DAILY XX 03/16/20 09:00 03/16/20 19:55 DC Nitroglycerin (Nitrostat (1/ 150)) 0.4 mg Q5MP PRN SL CHEST PAIN 03/16/20 15:00 03/19/20 11:49 Non-Formulary Medication 2 ea DAILY PO 03/22/20 09:00 UNV Olanzapine (ZyPREXA) 2.5 mg BID PO 03/17/20 09:00 03/20/20 07:33 DC 03/19/20 20:11 Olanzapine (ZyPREXA) 5 mg BID PO 03/20/20 09:00 03/22/20 07:31 Omeprazole (PriLOSEC) 20 mg DAILY PO 03/17/20 09:00 03/22/20 07:30 Patient Own Medication (Patient'S Own Med) MYCOPHENOLATE (MYFORTIC) DR 18... BID PO 03/16/20 21:00 03/22/20 07:32 Prednisone (Deltasone) 5 mg DAILY PO 03/17/20 09:00 03/22/20 07:30 Quetiapine Fumarate (SEROquel) 12.5 mg BID PO 03/16/20 21:00 03/17/20 10:09 DC 03/16/20 21:16 Quetiapine Fumarate (SEROquel) 12.5 mg BID PRN PO agitation 03/16/20 15:00 03/16/20 17:12 DC Ramelteon (Rozerem) 8 mg QHS PO 03/17/20 21:00 03/21/20 20:08 Senna (Senokot) 1 tab QHS PO 03/16/20 21:00 03/19/20 20:12 Sirolimus (Rapamune) 2 mg DAILY PO 03/23/20 09:00 Sodium Bicarbonate (Sodium Bicarbonate) 325 mg BID PO 03/17/20 21:00 03/22/20 07:29 Tacrolimus (Prograf) 0.5 mg DAILY PO 03/17/20 09:00 03/17/20 16:05 DC 03/17/20 12:19 Temazepam (Restoril) 15 mg QHS PO 03/20/20 21:00 03/21/20 20:07 Ursodiol (Actigall) 300 mg BID PO 03/16/20 21:00 03/22/20 07:35 Vitamin D (Vitamin D) 1,000 units DAILY PO 03/17/20 09:00 03/22/20 07:30 ROLAN ENGLE MD Mar 22, 2020 11:38
--- NOTE | 2020-03-22 11:39 | IPNPDOC ---
PM&R Progress Note DATE OF SERVICE: Mar 22, 2020 [employer] Progress Note Subjective: Patient seen in his room appearing more alert and responsive, stating he had no abdominal pain or chest pain and that he slept well lat night. REVIEW OF SYSTEMS: The following is a completed review of systems and has been reviewed. Review of systems otherwise unremarkable. PAIN: Patient self reports no pain EYES: No recent vision changes EARS, NOSE, & THROAT: No throat pain, or dysphagia, or rhinorrhea CARDIOVASCULAR: Denies chest pain or palpitations PULMONARY: Denies shortness of breath GASTROINTESTINAL: Denies constipation/diarrhea GENITOURINARY: denies dysuria MUSCULOSKELETAL: generalized weakness NEUROLOGICAL: +encephalopathic HEMATOLOGICAL: +chronic anemia SKIN: denies rash PSYCHIATRIC: flat affect All other review of systems found to be negative. PHYSICAL EXAMINATION: VITAL SIGNS: Please see below. GENERAL: flat affect HEENT: PERRL. Extraocular movements intact. Clear conjunctiva CARDIOVASCULAR: Regular rate and rhythm. No murmurs, rubs, or gallops LUNGS: Clear to auscultation bilaterally. No wheezes. No rhonchi ABDOMEN: Soft,non tender to palpation, nondistended. Positive bowel sounds. Normal active bowel sounds NEUROLOGICAL: Alert and oriented times three. Cranial nerves II through XII grossly intact. Sensation grossly intact EXTREMITIES: 5-\5 strength bilateral upper extremities. 5-\5 strength right lower extremity.5-/5 strength in left lower extremity. SKIN: intact ASSESSMENT:64-year-old M with past medical history of ESRD s/p bilat kidney transplants who presents status post cholangitis due to choledocolithiasis with sepsis and encephalopathy PLAN: 1.Rehab- PT/OT advance gait and ADLs, strengthen/stretch/maintain ROM all 4 limbs- able to ambulate without AD inconsistently at times needs a RW 2. Neuro/Psych- patient with reported hx of longstanding Klonipin use which per his he was mentally stable on this dose until he started to become paranoid and was switched to Paxil which was discontinued prior to admission on ARU due to concern for medication related encephalopathy contributing to infectious cause of encephalopathy -over the weekend reporting from nursing patient made several eloping attempts and was not sleeping through the night- d/c'd prozac qHS as patient seems to have poor response even to low dose SSRIs despite concurrent anti-psychotic use, and instead added long-acting Benzo, Restoril 15mg qhS which seems to be effective for sleep and overall daytime mood- c/u Zyprexa which was increased to 5mg BID-patient seems to be tolerating this dose- will recommend outpatient psychiatry to monitor his medications and manage any dose adjustments or medication changes going forward 3. CArdiac- hx of NSTEMI and CAD- c/u ASA and carvedilol -Hx HTN c/u amlopidine -medicine consulted to assist in overall management - patient with recent reports of chest pain, troponins negative, patient currently asymptomatic, c/u to monitor 4. Resp -monitor for infection 5. GI- c/p ERCP for choledocholithiasis and course of IV antibiotics for cholangitis, s/p course of Augmentin-f/u GI with Dr. Corcoran to discuss recent ERCP and tumor marker results, monitor for worsening abdominal symptoms- patient without leukocytosis and abdominal exam benign, if clinical picture worsens, will ask for input from ID, stable so far -c/u ursodiol -ppx omeprazole 6. Renal- c/u tacrolimus/mycophenolate/prednisone for renal transplants, renal consulted to follow-along while inhouse -c/u calcitriol -c/u allopurinol 7. DVT ppx- heparin 8. Pain- tylenol prn 9. Psych- c/u Restoril and Zyprexa- will refer to outpatient psych 10. Dispo- 03-28-20 to home, progressing towards goals Allergies Coded Allergies: codeine (Verified Adverse Reaction, Mild, N/V, 03/31/19) meperidine (Verified Adverse Reaction, Mild, N/V, 03/31/19) morphine (Verified Adverse Reaction, Mild, N/V, 03/31/19) HAS TAKEN MORPHINE WITH ZOFRAN AND TOLERATED WELL oxycodone (Verified Adverse Reaction, Mild, N/V, 03/31/19) uses zofran prior to admin vancomycin (Verified Adverse Reaction, Mild, confusion, 03/31/19) Vital Signs Vital Signs Date Time Temp Pulse Resp B/P (MAP) Pulse Ox O2 Delivery O2 Flow Rate FiO2 03/22/20 07:29 62 138/79 03/22/20 06:29 97.4 18 97 Room Air Laboratory Data CBC/BMP Laboratory Tests 03/22/20 06:42 Labs 24H Laboratory Tests 2 03/21/20 13:37: Bedside Glucose (Misc Panel) 124H 03/22/20 06:42: Immature Granulocyte % (Auto) 1.9, Neutrophils (%) (Auto) 68.9H, Lymphocytes (%) (Auto) 21.5L, Monocytes (%) (Auto) 6.9H, Eosinophils (%) (Auto) 0.4, Basophils (%) (Auto) 0.4, Neutrophils # (Auto) 3.2, Lymphocytes # (Auto) 1.0L, Monocytes # (Auto) 0.3, Eosinophils # (Auto) 0.0, Basophils # (Auto) 0.0, Nucleated Red Blood Cells % (auto) 0.0, Anion Gap 7L, Glomerular Filtration Rate 35.3L, Calcium Level 9.0 Current Medications Current Medications Current Medications Medications (Trade) Dose Ordered Sig/Shanae Route PRN Reason Start Time Stop Time Status Last Admin Dose Admin Acetaminophen (Tylenol Tab) 650 mg Q4HP PRN PO fever/MILD PAIN (PS 1-4) 03/16/20 14:30 03/17/20 20:13 Allopurinol (Zyloprim) 100 mg DAILY PO 03/20/20 09:00 03/22/20 07:29 Allopurinol (Zyloprim) 200 mg DAILY PO 03/17/20 09:00 03/19/20 09:19 DC 03/18/20 09:00 Amlodipine Besylate (Norvasc) 5 mg DAILY PO 03/17/20 09:00 03/18/20 17:32 DC 03/18/20 13:07 Amlodipine Besylate (Norvasc) 10 mg DAILY PO 03/19/20 09:00 03/22/20 07:29 Amoxicillin/ Clavulanate Potassium (Augmentin) 875 mg BID PO 03/16/20 21:00 03/19/20 09:01 DC 03/19/20 09:50 Aspirin (Ecotrin) 81 mg DAILY PO 03/17/20 09:00 03/22/20 07:30 Atorvastatin Calcium (Lipitor) 40 mg DAILY PO 03/17/20 09:00 03/22/20 07:31 Calcitriol (Rocaltrol) 0.5 mcg DAILY PO 03/17/20 09:00 03/22/20 07:31 Carvedilol (COReg) 12.5 mg BID PO 03/16/20 21:00 03/22/20 07:31 Docusate Sodium (Colace) 100 mg BID PO 03/16/20 21:00 03/22/20 07:30 Fluoxetine HCl (PROzac) 10 mg QHS PO 03/17/20 21:00 03/17/20 10:25 DC Fluoxetine HCl (PROzac) 10 mg QHS PO 03/17/20 21:00 03/20/20 11:35 DC 03/19/20 20:11 Heparin Sodium (Porcine) (Heparin) 5,000 units Q12H SC 03/16/20 21:00 03/22/20 07:32 Home Med (Med Rec Complete!) ASDIRECTED XX 03/16/20 15:30 03/16/20 15:31 DC Lactobacillus Acidophilus (Bacid) 1 ea DAILY PO 03/20/20 09:00 03/22/20 07:31 Lactobacillus Acidophilus (Bacid) 1 ea TID PO 03/16/20 16:00 03/19/20 09:21 DC 03/18/20 20:56 Lorazepam (Ativan) 2 mg STAT STAT IM 03/20/20 06:05 03/20/20 06:08 DC Lorazepam (Ativan) 2 mg STAT STAT IM 03/20/20 06:16 03/20/20 06:17 DC 03/20/20 06:37 Lorazepam (Ativan) 2 mg STAT STAT IV 03/20/20 06:04 03/20/20 06:09 DC Miscellaneous (Unresolved Patient Own Med Order) SEE LABEL COMMENTS DAILY XX 03/16/20 09:00 03/16/20 19:55 DC Nitroglycerin (Nitrostat (1/ 150)) 0.4 mg Q5MP PRN SL CHEST PAIN 03/16/20 15:00 03/19/20 11:49 Non-Formulary Medication 2 ea DAILY PO 03/22/20 09:00 UNV Olanzapine (ZyPREXA) 2.5 mg BID PO 03/17/20 09:00 03/20/20 07:33 DC 03/19/20 20:11 Olanzapine (ZyPREXA) 5 mg BID PO 03/20/20 09:00 03/22/20 07:31 Omeprazole (PriLOSEC) 20 mg DAILY PO 03/17/20 09:00 03/22/20 07:30 Patient Own Medication (Patient'S Own Med) MYCOPHENOLATE (MYFORTIC) 18... BID PO 03/16/20 21:00 03/22/20 07:32 Prednisone (Deltasone) 5 mg DAILY PO 03/17/20 09:00 03/22/20 07:30 Quetiapine Fumarate (SEROquel) 12.5 mg BID PO 03/16/20 21:00 03/17/20 10:09 DC 03/16/20 21:16 Quetiapine Fumarate (SEROquel) 12.5 mg BID PRN PO agitation 03/16/20 15:00 03/16/20 17:12 DC Ramelteon (Rozerem) 8 mg QHS PO 03/17/20 21:00 03/21/20 20:08 Senna (Senokot) 1 tab QHS PO 03/16/20 21:00 03/19/20 20:12 Sirolimus (Rapamune) 2 mg DAILY PO 03/23/20 09:00 Sodium Bicarbonate (Sodium Bicarbonate) 325 mg BID PO 03/17/20 21:00 03/22/20 07:29 Tacrolimus (Prograf) 0.5 mg DAILY PO 03/17/20 09:00 03/17/20 16:05 DC 03/17/20 12:19 Temazepam (Restoril) 15 mg QHS PO 03/20/20 21:00 03/21/20 20:07 Ursodiol (Actigall) 300 mg BID PO 03/16/20 21:00 03/22/20 07:35 Vitamin D (Vitamin D) 1,000 units DAILY PO 03/17/20 09:00 03/22/20 07:30 ROLAN ENGLE MD Mar 22, 2020 11:39
[2020-03-22] MEDS ORDERED: SIROLIMUS 1 MG TAB (RAPAMUNE) PO ONE (12:00)
[2020-03-22 14:00] VITALS: BP 132/75
[2020-03-22 20:00] VITALS: BP 161/79
[2020-03-22] MEDS: RAMELTEON 8 MG TAB (ROZEREM) PO SCH (20:57)
[2020-03-22] MEDS: TEMAZEPAM 15 MG CAP PO SCH (20:57)
[2020-03-22] MEDS: SENNA 8.6 MG TAB (SENOKOT) PO SCH (20:57)
[2020-03-23 06:51] VITALS: BP 157/80
[2020-03-23 07:01] LABS: CALCIUM LEVEL 9.3 MG/DL (8.8-10.2); CREATININE FOR GFR 1.95 MG/DL (0.70-1.30); GLOMERULAR FILTRATION RATE 36.9 (>49); POTASSIUM SERUM 3.5 MEQ/L (3.5-5.1)
[2020-03-23] MEDS ORDERED: MEGESTROL 400MG 10ML SUSP ORAL SYRINGE *DRAW UP EXACT DOSE PO SCH (09:00)
[2020-03-23] MEDS: ursodioL 300 MG CAP PO SCH ×2 (09:00→20:34)
[2020-03-23] MEDS: REMEDY PHYTOPLEX Z-GUARD PASTE 113GM TUBE (FROM STOREROOM PRODUCT) TOP SCH ×3 (09:00→20:25)
--- NOTE | 2020-03-23 10:36 | IPN ---
DATE: 03/22/2020 SUBJECTIVE: Patient was seen and examined at the bedside today morning. Patient much more awake and alert. His mood is better today as compared with yesterday. Renal function is stable. Creatinine has been fluctuating at 2. He denies any active complaints at this time. OBJECTIVE: Vital signs: Temperature 97.4 degrees Fahrenheit, blood pressure 141/79, pulse 58, respiratory rate 18, saturating 97% on room air. Intake and output: Urine output recorded as 600 mL yesterday and 400 mL so far today since overnight. Weight in the bed scale is not available. PHYSICAL EXAMINATION: GENERAL: Patient is awake, alert and oriented x3, lying in bed, in no apparent distress. HEAD AND NECK: Extraocular muscles intact. Pupils equally round and reactive to light. Mucous membranes are moist. Neck is supple. There is no JVD. CARDIOVASCULAR: S1, S2, regular rate. No edema of the bilateral lower extremities. RESPIRATORY: Chest is clear to auscultation bilaterally. Bilateral equal air entry. No rales or rhonchi. ABDOMEN: Soft, positive bowel sounds, nontender. No organomegaly. Old surgical scars are noted. Renal allograft is nontender. MUSCULOSKELETAL: No clubbing or cyanosis. Pulses are 2+. PULMONOLOGIST INTENSIVIST: No focal deficit. Power is 5/5 in all extremities. LABORATORY REVIEW: CBC showed WBC 4.7, hemoglobin 10.3, platelets 158,000. BMP showed sodium 140, potassium 3.4, chloride 111, bicarbonate 22, BUN 23, creatinine 2.03. CURRENT INPATIENT MEDICATIONS: Patients medications were all reviewed by myself. He was started on Sirolimus 2 mg p.o. daily. He was also given a dose of potassium chloride 20 mEq p.o. times one dose today. No other significant change in the medications today as compared with yesterday. ASSESSMENT AND PLAN: 1. Renal allograft status: Patient Tacrolimus was stopped because of possible neurotoxicity. He has been switched to Sirolimus; medicine will be arranged today by pharmacy. Continue current dose of Mycophenolate and prednisone. 2. Hypokalemia: He was given a dose of potassium chloride 20 mEq today. 3. Hypertension: Blood pressure is controlled with Coreg and Amlodipine. 4. Chronic gout secondary to chronic kidney disease: Continue current dose of Allopurinol 100 mg daily. 5. Secondary hyperparathyroidism: Continue current dose of Calcitriol 0.5 mcg p.o. daily. 6. Confusion and altered mental status: Patient is clinically getting better. Continue current antipsychotic medications as per medical team. MTDD
--- NOTE | 2020-03-23 10:59 | IPNPDOC ---
PM&R Progress Note DATE OF SERVICE: Mar 23, 2020 Tax Expert Progress Note Subjective: Patient seen in his room stating he feels ok today, that he had a bowel movement, but that he doesn't feel like eating. He said he had two bites of the pizza his brought last night. REVIEW OF SYSTEMS: The following is a completed review of systems and has been reviewed. Review of systems otherwise unremarkable. PAIN: Patient self reports no pain EYES: No recent vision changes EARS, NOSE, & THROAT: No throat pain, or dysphagia, or rhinorrhea CARDIOVASCULAR: Denies chest pain or palpitations PULMONARY: Denies shortness of breath GASTROINTESTINAL: Denies constipation/diarrhea GENITOURINARY: denies dysuria MUSCULOSKELETAL: generalized weakness NEUROLOGICAL: +encephalopathic HEMATOLOGICAL: +chronic anemia SKIN: denies rash PSYCHIATRIC: flat affect All other review of systems found to be negative. PHYSICAL EXAMINATION: VITAL SIGNS: Please see below. GENERAL: flat affect HEENT: PERRL. Extraocular movements intact. Clear conjunctiva CARDIOVASCULAR: Regular rate and rhythm. No murmurs, rubs, or gallops LUNGS: Clear to auscultation bilaterally. No wheezes. No rhonchi ABDOMEN: Soft,non tender to palpation, nondistended. Positive bowel sounds. Normal active bowel sounds NEUROLOGICAL: Alert and oriented times three. Cranial nerves II through XII grossly intact. Sensation grossly intact EXTREMITIES: 5-\5 strength bilateral upper extremities. 5-\5 strength right lower extremity.5-/5 strength in left lower extremity. SKIN: intact ASSESSMENT:64-year-old M with past medical history of ESRD s/p bilat kidney transplants who presents status post cholangitis due to choledocolithiasis with sepsis and encephalopathy PLAN: 1.Rehab- PT/OT advance gait and ADLs, strengthen/stretch/maintain ROM all 4 limbs- able to ambulate without AD inconsistently at times needs a RW 2. Neuro/Psych- patient with reported hx of longstanding Klonipin use which per his he was mentally stable on this dose until he started to become paranoid and was switched to Paxil which was discontinued prior to admission on ARU due to concern for medication related encephalopathy contributing to infectious cause of encephalopathy -over the weekend reporting from nursing patient made several eloping attempts and was not sleeping through the night- d/c'd prozac qHS as patient seems to have poor response even to low dose SSRIs despite concurrent anti-psychotic use, and instead added long-acting Benzo, Restoril 15mg qhS which seems to be effective for sleep and overall daytime mood- c/u Zyprexa which was increased to 5mg BID-patient seems to be tolerating this dose- will recommend outpatient psychiatry to monitor his medications and manage any dose adjustments or medication changes going forward 3. CArdiac- hx of NSTEMI and CAD- c/u ASA and carvedilol -Hx HTN c/u amlopidine -medicine consulted to assist in overall management - patient with recent reports of chest pain, troponins negative, patient currently asymptomatic, c/u to monitor 4. Resp -monitor for infection 5. GI- c/p ERCP for choledocholithiasis and course of IV antibiotics for cholangitis, s/p course of Augmentin-f/u GI with Dr. Corcoran to discuss recent ERCP and tumor marker results, monitor for worsening abdominal symptoms- patient without leukocytosis and abdominal exam benign, if clinical picture worsens, will ask for input from ID, stable so far -c/u ursodiol -ppx omeprazole -poor appetite, will order q2h feeds with nursing while awake, FS BID ordered to monitor for hypoglycemia 6. Renal- c/u tacrolimus/mycophenolate/prednisone for renal transplants, renal consulted to follow-along while inhouse -c/u calcitriol -c/u allopurinol 7. DVT ppx- heparin 8. Pain- tylenol prn 9. Psych- c/u Restoril and Zyprexa- will refer to outpatient psych 10. Dispo- 03-28-20 to home, progressing towards goals Allergies Coded Allergies: codeine (Verified Adverse Reaction, Mild, N/V, 03/31/19) meperidine (Verified Adverse Reaction, Mild, N/V, 03/31/19) morphine (Verified Adverse Reaction, Mild, N/V, 03/31/19) HAS TAKEN MORPHINE WITH ZOFRAN AND TOLERATED WELL oxycodone (Verified Adverse Reaction, Mild, N/V, 03/31/19) uses zofran prior to admin vancomycin (Verified Adverse Reaction, Mild, confusion, 03/31/19) Vital Signs Vital Signs Date Time Temp Pulse Resp B/P (MAP) Pulse Ox O2 Delivery O2 Flow Rate FiO2 03/23/20 06:51 97.1 60 18 157/80 (105) 98 Room Air Laboratory Data CBC/BMP Laboratory Tests 03/23/20 06:30 Labs 24H Laboratory Tests 2 03/23/20 06:30: Anion Gap 10, Glomerular Filtration Rate 36.9L, Calcium Level 9.3 03/23/20 10:29: Bedside Glucose (Misc Panel) 102 Current Medications Current Medications Current Medications Medications (Trade) Dose Ordered Sig/Sahnae Route PRN Reason Start Time Stop Time Status Last Admin Dose Admin Acetaminophen (Tylenol Tab) 650 mg Q4HP PRN PO fever/MILD PAIN (PS 1-4) 03/16/20 14:30 03/17/20 20:13 Allopurinol (Zyloprim) 100 mg DAILY PO 03/20/20 09:00 03/22/20 07:29 Allopurinol (Zyloprim) 200 mg DAILY PO 03/17/20 09:00 03/19/20 09:19 DC 03/18/20 09:00 Amlodipine Besylate (Norvasc) 5 mg DAILY PO 03/17/20 09:00 03/18/20 17:32 DC 03/18/20 13:07 Amlodipine Besylate (Norvasc) 10 mg DAILY PO 03/19/20 09:00 03/22/20 07:29 Amoxicillin/ Clavulanate Potassium (Augmentin) 875 mg BID PO 03/16/20 21:00 03/19/20 09:01 DC 03/19/20 09:50 Aspirin (Ecotrin) 81 mg DAILY PO 03/17/20 09:00 03/22/20 07:30 Atorvastatin Calcium (Lipitor) 40 mg DAILY PO 03/17/20 09:00 03/22/20 07:31 Calcitriol (Rocaltrol) 0.5 mcg DAILY PO 03/17/20 09:00 03/22/20 07:31 Carvedilol (COReg) 12.5 mg BID PO 03/16/20 21:00 03/22/20 07:31 Docusate Sodium (Colace) 100 mg BID PO 03/16/20 21:00 03/22/20 20:57 Fluoxetine HCl (PROzac) 10 mg QHS PO 03/17/20 21:00 03/17/20 10:25 DC Fluoxetine HCl (PROzac) 10 mg QHS PO 03/17/20 21:00 03/20/20 11:35 DC 03/19/20 20:11 Heparin Sodium (Porcine) (Heparin) 5,000 units Q12H SC 03/16/20 21:00 03/22/20 20:57 Home Med (Med Rec Complete!) ASDIRECTED XX 03/16/20 15:30 03/16/20 15:31 DC Lactobacillus Acidophilus (Bacid) 1 ea DAILY PO 03/20/20 09:00 03/22/20 07:31 Lactobacillus Acidophilus (Bacid) 1 ea TID PO 03/16/20 16:00 03/19/20 09:21 DC 03/18/20 20:56 Lorazepam (Ativan) 2 mg STAT STAT IM 03/20/20 06:05 03/20/20 06:08 DC Lorazepam (Ativan) 2 mg STAT STAT IM 03/20/20 06:16 03/20/20 06:17 DC 03/20/20 06:37 Lorazepam (Ativan) 2 mg STAT STAT IV 03/20/20 06:04 03/20/20 06:09 DC Miscellaneous (Unresolved Patient Own Med Order) SEE LABEL COMMENTS DAILY XX 03/16/20 09:00 03/16/20 19:55 DC Nitroglycerin (Nitrostat (1/ 150)) 0.4 mg Q5MP PRN SL CHEST PAIN 03/16/20 15:00 03/19/20 11:49 Non-Formulary Medication 2 ea DAILY PO 03/22/20 09:00 UNV Olanzapine (ZyPREXA) 2.5 mg BID PO 03/17/20 09:00 03/20/20 07:33 DC 03/19/20 20:11 Olanzapine (ZyPREXA) 5 mg BID PO 03/20/20 09:00 03/22/20 20:56 Omeprazole (PriLOSEC) 20 mg DAILY PO 03/17/20 09:00 03/22/20 07:30 Patient Own Medication (Patient'S Own Med) MYCOPHENOLATE (MYFORTIC) DR 18... BID PO 03/16/20 21:00 03/22/20 20:58 Prednisone (Deltasone) 5 mg DAILY PO 03/17/20 09:00 03/22/20 07:30 Quetiapine Fumarate (SEROquel) 12.5 mg BID PO 03/16/20 21:00 03/17/20 10:09 DC 03/16/20 21:16 Quetiapine Fumarate (SEROquel) 12.5 mg BID PRN PO agitation 03/16/20 15:00 03/16/20 17:12 DC Ramelteon (Rozerem) 8 mg QHS PO 03/17/20 21:00 03/22/20 20:57 Senna (Senokot) 1 tab QHS PO 03/16/20 21:00 03/22/20 20:57 Sirolimus (Rapamune) 2 mg DAILY PO 03/23/20 09:00 Sodium Bicarbonate (Sodium Bicarbonate) 325 mg BID PO 03/17/20 21:00 03/22/20 20:57 Tacrolimus (Prograf) 0.5 mg DAILY PO 03/17/20 09:00 03/17/20 16:05 DC 03/17/20 12:19 Temazepam (Restoril) 15 mg QHS PO 03/20/20 21:00 03/22/20 20:57 Ursodiol (Actigall) 300 mg BID PO 03/16/20 21:00 03/22/20 20:57 Vitamin D (Vitamin D) 1,000 units DAILY PO 03/17/20 09:00 03/22/20 07:30 ROLAN ENGLE MD Mar 23, 2020 10:59
[2020-03-23] MEDS: LACTOBACILLUS ACIDOPHILUS CAP (BACID) PO SCH (12:02)
[2020-03-23] MEDS: SIROLIMUS 1 MG TAB (RAPAMUNE) PO SCH (12:02)
[2020-03-23] MEDS: ATORVASTATIN 20 MG TAB PO SCH (12:03)
[2020-03-23] MEDS: amLODIPine 10 MG TAB PO SCH (12:03)
[2020-03-23] MEDS: VITAMIN D 1,000 INTERNATIONAL UNITS TABLET PO SCH (12:03)
[2020-03-23] MEDS: ASPIRIN 81 MG ENTERIC TAB PO SCH (12:04)
[2020-03-23] MEDS: SODIUM BICARBONATE 325 MG TAB PO SCH ×2 (12:04→20:34)
[2020-03-23] MEDS: predniSONE 5 MG TAB PO SCH (12:05)
[2020-03-23] MEDS: CALCITRIOL 0.25 MCG CAP (S0169) PO SCH (12:05)
[2020-03-23] MEDS: OLANZapine 5 MG TAB PO SCH ×2 (12:05→20:33)
[2020-03-23] MEDS: OMEPRAZOLE 20 MG CAP PO SCH (12:05)
[2020-03-23] MEDS: DOCUSATE SODIUM 100 MG CAP PO SCH ×2 (12:07→20:35)
[2020-03-23] MEDS: CARVedilol 12.5 MG TAB PO SCH ×2 (12:07→20:25)
[2020-03-23] MEDS: allopurinoL 100 MG TAB PO SCH (12:07)
[2020-03-23] MEDS: MYCOPHENOLATE 180 MG PO SCH ×2 (12:08→20:34)
[2020-03-23] MEDS: HEPARIN SOD (PORCINE) 5000UNITS/ML 1ML VIAL/SYRINGE SC SCH ×2 (12:08→20:26)
[2020-03-23 14:00] VITALS: BP 143/80
[2020-03-23 20:00] VITALS: BP 154/84
[2020-03-23] MEDS: TEMAZEPAM 15 MG CAP PO SCH (20:34)
[2020-03-23] MEDS: RAMELTEON 8 MG TAB (ROZEREM) PO SCH (20:34)
[2020-03-23] MEDS: SENNA 8.6 MG TAB (SENOKOT) PO SCH (20:35)
[2020-03-24 06:00] VITALS: BP 150/80
[2020-03-24] MEDS: MYCOPHENOLATE 180 MG PO SCH ×2 (08:47→20:08)
[2020-03-24] MEDS: allopurinoL 100 MG TAB PO SCH (08:47)
[2020-03-24] MEDS: CALCITRIOL 0.25 MCG CAP (S0169) PO SCH (08:48)
[2020-03-24] MEDS: ASPIRIN 81 MG ENTERIC TAB PO SCH (08:48)
[2020-03-24] MEDS: SIROLIMUS 1 MG TAB (RAPAMUNE) PO SCH (08:48)
[2020-03-24] MEDS: OMEPRAZOLE 20 MG CAP PO SCH (08:48)
[2020-03-24] MEDS: predniSONE 5 MG TAB PO SCH (08:48)
[2020-03-24] MEDS: SODIUM BICARBONATE 325 MG TAB PO SCH ×2 (08:48→20:08)
[2020-03-24] MEDS: VITAMIN D 1,000 INTERNATIONAL UNITS TABLET PO SCH (08:48)
[2020-03-24] MEDS: LACTOBACILLUS ACIDOPHILUS CAP (BACID) PO SCH (08:48)
[2020-03-24] MEDS: ursodioL 300 MG CAP PO SCH ×2 (08:48→20:08)
[2020-03-24] MEDS: CARVedilol 12.5 MG TAB PO SCH ×2 (08:48→20:07)
[2020-03-24] MEDS: amLODIPine 10 MG TAB PO SCH (08:48)
[2020-03-24] MEDS: ATORVASTATIN 20 MG TAB PO SCH (08:48)
[2020-03-24] MEDS: OLANZapine 5 MG TAB PO SCH ×2 (08:48→20:08)
[2020-03-24] MEDS: REMEDY PHYTOPLEX Z-GUARD PASTE 113GM TUBE (FROM STOREROOM PRODUCT) TOP SCH ×3 (08:49→20:09)
[2020-03-24] MEDS: DOCUSATE SODIUM 100 MG CAP PO SCH ×2 (08:49→20:08)
[2020-03-24] MEDS: HEPARIN SOD (PORCINE) 5000UNITS/ML 1ML VIAL/SYRINGE SC SCH ×2 (08:49→20:07)
[2020-03-24 09:53] LABS: BASO # 0.1 10^3/uL (0.0-0.2); BASO % 0.7 % (0.0-1.0); EOS % 0.3 % (0.0-3.0); HEMATOCRIT 34.8 % (42.0-52.0); HEMOGLOBIN 11.3 g/dl (13.5-17.5); LYMPH # 1.3 10^3/uL (1.5-5.0); LYMPH % 17.8 % (24.0-44.0); MEAN CORPUSCULAR HEMOGLOBIN 28.9 pg (27.0-33.0); MEAN CORPUSCULAR HGB CONC 32.5 g/dl (32.0-36.5); MONO # 0.5 10^3/uL (0.0-0.8); NEUTROPHILS # 5.1 10^3/uL (1.5-8.5); PLATELET COUNT, AUTOMATED 167 10^3/uL (150-450); RED BLOOD COUNT 3.91 10^6/uL (4.30-6.10); WHITE BLOOD COUNT 7.1 10^3/uL (4.0-10.0)
[2020-03-24 10:25] LABS: CALCIUM LEVEL 9.8 MG/DL (8.8-10.2); GLOMERULAR FILTRATION RATE 35.9 (>49); POTASSIUM SERUM 3.8 MEQ/L (3.5-5.1)
--- NOTE | 2020-03-24 10:36 | ECGEPIP ---
[facility] Test Date: 2020-03-19 Pat Name: PATY CARTAGENA Department: Room: [place] [address] Gender: Male Christian Counselor: SUE : 1955 Requested By: JAMIE Irving Order Number: [id number] Reading MD: Octavio Montes De Oca Measurements Intervals [place] Rate: 61 P: 22 WV: 143 QRS: -46 QRSD: 100 T: -16 QT: 441 QTc: 445 Interpretive Statements SINUS RHYTHM WITH OCCASIONAL SUPRAVENTRICULAR PREMATURE COMPLEXES LEFT ANTERIOR FASCICULAR BLOCK VOLTAGE CRITERIA FOR LVH ABNORMAL ECG NON SPECIFIC ST & T-WAVE CHANGES
--- NOTE | 2020-03-24 11:09 | IPNPDOC ---
Text Note Date of Service The patient was seen on 03/24/20. NOTE SUBJECTIVE: Patient was seen and examined today at bedside. He state he is feeling well. Denies any new concerns or issues. His mood is improved. OBJECTIVE: PHYSICAL EXAMINATION: VITAL SIGNS: Please see below. GENERAL: Alert, sitting up comfortably in a chair, in no acute distress HEENT: NC, AT, moist mucous membranes, no JVD CARDIOVASCULAR: RRR, normal S1 and S2 RESPIRATORY: CTAB, no wheezing, rhonchi, or rales ABDOMINAL: Soft, nontender, nondistended, bowel sounds present. EXTREMITIES: no edema noted. PSYCH: Cooperative. Alert. Oriented x3 to person, place, and time. Affect is somewhat flat but mood is improved. ASSESSMENT/PLAN: 64 year old male with a history of ESRD s/p renal transplant admitted to ARU for rehab after hospitalization at [facility] for cholangitis. 1. Renal allograft status. He was previously on Tacrolimus which has been discontinued due to possible neurotoxicity. He has been switched to Sirolimus, first dose given 03/23. We have ordered a Sirolimus level, however this is a send out lab and the results will not return in time to adjust the dosing. Continue current dose of Mycophenolate and prednisone as well. 2. Hypokalemia. Improved, continue to supplement as needed. 3. Hypertension. Blood pressure is well-controlled. Continue coreg 12.5mg BID and amlodipine 10mg daily. 4. Chronic gout secondary to chronic kidney disease. Continue allopurinol 100mg daily. 5. Secondary hyperparathyroidism. Continue calcitriol 0.5mcg daily. 6. Confusion and altered mental status. Patient is clinically getting better. Continue current antipsychotic medications as per primary team. Thank you for the consultation on this patient, we will continue to follow along. VS,Fishbone, I+O VS, Fishbone, I+O Laboratory Tests 03/24/20 09:14 Vital Signs Date Time Temp Pulse Resp B/P (MAP) Pulse Ox O2 Delivery O2 Flow Rate FiO2 03/24/20 08:48 60 150/80 03/24/20 06:00 97.1 18 99 Room Air I&O- Last 24 Hours up to 6 AM 03/24/20 06:00 Intake Total 1200 ml Output Total 975 ml Balance 225 ml GME ATTESTATION GME ATTESTATION My faculty preceptor for this patient encounter was physically present during the encounter and was fully available. All aspects of the patient interview, examination, medical decision making process, and medical care plan development were reviewed and approved by the faculty preceptor. The faculty preceptor is aware and concurs with the plan as stated in the body of this note and will attest to such by his/her cosignature. ATTENDING NOTE Renal allograft status CKD3 Metabolic acidosis HTN cont Sirolimus,Mycophenolate and prednisone. cont sod bicarb. clinically getting better. SUDARSHAN BERNARDO D.O. Mar 24, 2020 11:09 DAVID ROCKWELL MD Mar 24, 2020 11:46
--- NOTE | 2020-03-24 11:13 | IPNPDOC ---
PM&R Progress Note DATE OF SERVICE: Mar 24, 2020 Director Dietetics Department Progress Note Subjective: Patient seen in his room this morning stating he felt remorseful about having let his family down and was apologizing for the way he had been behaving. He was encouraged to continue eating more when offered food and reassured that his family was there to support him and wants him to get better. REVIEW OF SYSTEMS: The following is a completed review of systems and has been reviewed. Review of systems otherwise unremarkable. PAIN: Patient self reports no pain EYES: No recent vision changes EARS, NOSE, & THROAT: No throat pain, or dysphagia, or rhinorrhea CARDIOVASCULAR: Denies chest pain or palpitations PULMONARY: Denies shortness of breath GASTROINTESTINAL: Denies constipation/diarrhea GENITOURINARY: denies dysuria MUSCULOSKELETAL: generalized weakness NEUROLOGICAL: +encephalopathic (improving) HEMATOLOGICAL: +chronic anemia SKIN: denies rash PSYCHIATRIC: flat affect All other review of systems found to be negative. PHYSICAL EXAMINATION: VITAL SIGNS: Please see below. GENERAL: flat affect (improving) HEENT: PERRL. Extraocular movements intact. Clear conjunctiva CARDIOVASCULAR: Regular rate and rhythm. No murmurs, rubs, or gallops LUNGS: Clear to auscultation bilaterally. No wheezes. No rhonchi ABDOMEN: Soft,non tender to palpation, nondistended. Positive bowel sounds. Normal active bowel sounds NEUROLOGICAL: Alert and oriented times three. Cranial nerves II through XII grossly intact. Sensation grossly intact EXTREMITIES: 5-\5 strength bilateral upper extremities. 5-\5 strength right lower extremity.5-/5 strength in left lower extremity. SKIN: intact ASSESSMENT:64-year-old M with past medical history of ESRD s/p bilat kidney transplants who presents status post cholangitis due to choledocolithiasis with sepsis and encephalopathy PLAN: 1.Rehab- PT/OT advance gait and ADLs, strengthen/stretch/maintain ROM all 4 limbs- able to ambulate without AD inconsistently at times needs a RW 2. Neuro/Psych- patient with reported hx of longstanding Klonipin use which per his he was mentally stable on this dose until he started to become paranoid and was switched to Paxil which was discontinued prior to admission on ARU due to concern for medication related encephalopathy contributing to infectious c ause of encephalopathy -over the weekend reporting from nursing patient made several eloping attempts and was not sleeping through the night- d/c'd prozac qHS as patient seems to have poor response even to low dose SSRIs despite concurrent anti-psychotic use, and instead added long-acting Benzo, Restoril 15mg qhS which seems to be effective for sleep and overall daytime mood- c/u Zyprexa which was increased to 5mg BID-patient seems to be tolerating this dose- will recommend outpatient psychiatry to monitor his medications and manage any dose adjustments or medication changes going forward 3. CArdiac- hx of NSTEMI and CAD- c/u ASA and carvedilol -Hx HTN c/u amlopidine -medicine consulted to assist in overall management - patient with recent reports of chest pain, troponins negative, patient currently asymptomatic, c/u to monitor 4. Resp -monitor for infection 5. GI- c/p ERCP for choledocholithiasis and course of IV antibiotics for cholangitis, s/p course of Augmentin-f/u GI with Dr. Corcoran to discuss recent ERCP and tumor marker results, monitor for worsening abdominal symptoms- patient without leukocytosis and abdominal exam benign, if clinical picture worsens, will ask for input from ID, stable so far -c/u ursodiol -ppx omeprazole -poor appetite, c/u q2h feeds with nursing while awake, FS BID ordered to monitor for hypoglycemia 6. Renal- c/u tacrolimus/mycophenolate/prednisone for renal transplants, renal consulted to follow-along while inhouse -c/u calcitriol -c/u allopurinol 7. DVT ppx- heparin 8. Pain- tylenol prn 9. Psych- c/u Restoril and Zyprexa- will refer to outpatient psych -patient more verbal today and expressive, stating he was sorry he let his family down and agreed to try eating more 10. Dispo- 03-28-20 to home, progressing towards goals Allergies Coded Allergies: codeine (Verified Adverse Reaction, Mild, N/V, 03/31/19) meperidine (Verified Adverse Reaction, Mild, N/V, 03/31/19) morphine (Verified Adverse Reaction, Mild, N/V, 03/31/19) HAS TAKEN MORPHINE WITH ZOFRAN AND TOLERATED WELL oxycodone (Verified Adverse Reaction, Mild, N/V, 03/31/19) uses zofran prior to admin vancomycin (Verified Adverse Reaction, Mild, confusion, 03/31/19) Vital Signs Vital Signs Date Time Temp Pulse Resp B/P (MAP) Pulse Ox O2 Delivery O2 Flow Rate FiO2 03/24/20 08:48 60 150/80 03/24/20 06:00 97.1 18 99 Room Air Laboratory Data CBC/BMP Laboratory Tests 03/24/20 09:14 Labs 24H Laboratory Tests 2 03/24/20 09:14: Immature Granulocyte % (Auto) 2.2, Neutrophils (%) (Auto) 72.0H, Lymphocytes (%) (Auto) 17.8L, Monocytes (%) (Auto) 7.0H, Eosinophils (%) (Auto) 0.3, Basophils (%) (Auto) 0.7, Neutrophils # (Auto) 5.1, Lymphocytes # (Auto) 1.3L, Monocytes # (Auto) 0.5, Eosinophils # (Auto) 0.0, Basophils # (Auto) 0.1, Nucleated Red Blood Cells % (auto) 0.0, Anion Gap 9, Glomerular Filtration Rate 35.9L, Calcium Level 9.8 Current Medications Current Medications Current Medications Medications (Trade) Dose Ordered Sig/Shanae Route PRN Reason Start Time Stop Time Status Last Admin Dose Admin Acetaminophen (Tylenol Tab) 650 mg Q4HP PRN PO fever/MILD PAIN (PS 1-4) 03/16/20 14:30 03/17/20 20:13 Allopurinol (Zyloprim) 100 mg DAILY PO 03/20/20 09:00 03/24/20 08:47 Allopurinol (Zyloprim) 200 mg DAILY PO 03/17/20 09:00 03/19/20 09:19 DC 03/18/20 09:00 Amlodipine Besylate (Norvasc) 5 mg DAILY PO 03/17/20 09:00 03/18/20 17:32 DC 03/18/20 13:07 Amlodipine Besylate (Norvasc) 10 mg DAILY PO 03/19/20 09:00 03/24/20 08:48 Amoxicillin/ Clavulanate Potassium (Augmentin) 875 mg BID PO 03/16/20 21:00 03/19/20 09:01 DC 03/19/20 09:50 Aspirin (Ecotrin) 81 mg DAILY PO 03/17/20 09:00 03/24/20 08:48 Atorvastatin Calcium (Lipitor) 40 mg DAILY PO 03/17/20 09:00 03/24/20 08:48 Calcitriol (Rocaltrol) 0.5 mcg DAILY PO 03/17/20 09:00 03/24/20 08:48 Carvedilol (COReg) 12.5 mg BID PO 03/16/20 21:00 03/24/20 08:48 Docusate Sodium (Colace) 100 mg BID PO 03/16/20 21:00 03/23/20 12:07 Fluoxetine HCl (PROzac) 10 mg QHS PO 03/17/20 21:00 03/17/20 10:25 DC Fluoxetine HCl (PROzac) 10 mg QHS PO 03/17/20 21:00 03/20/20 11:35 DC 03/19/20 20:11 Heparin Sodium (Porcine) (Heparin) 5,000 units Q12H SC 03/16/20 21:00 03/23/20 12:08 Home Med (Med Rec Complete!) ASDIRECTED XX 03/16/20 15:30 03/16/20 15:31 DC Lactobacillus Acidophilus (Bacid) 1 ea DAILY PO 03/20/20 09:00 03/24/20 08:48 Lactobacillus Acidophilus (Bacid) 1 ea TID PO 03/16/20 16:00 03/19/20 09:21 DC 03/18/20 20:56 Lorazepam (Ativan) 2 mg STAT STAT IM 03/20/20 06:05 03/20/20 06:08 DC Lorazepam (Ativan) 2 mg STAT STAT IM 03/20/20 06:16 03/20/20 06:17 DC 03/20/20 06:37 Lorazepam (Ativan) 2 mg STAT STAT IV 03/20/20 06:04 03/20/20 06:09 DC Megestrol Acetate (Megace Acetate Suspension) 400 mg DAILY PO 03/23/20 09:00 03/23/20 16:45 DC Miscellaneous (Unresolved Patient Own Med Order) SEE LABEL COMMENTS DAILY XX 03/16/20 09:00 03/16/20 19:55 DC Nitroglycerin (Nitrostat (1/ 150)) 0.4 mg Q5MP PRN SL CHEST PAIN 03/16/20 15:00 03/19/20 11:49 Non-Formulary Medication 2 ea DAILY PO 03/22/20 09:00 UNV Olanzapine (ZyPREXA) 2.5 mg BID PO 03/17/20 09:00 03/20/20 07:33 DC 03/19/20 20:11 Olanzapine (ZyPREXA) 5 mg BID PO 03/20/20 09:00 03/24/20 08:48 Omeprazole (PriLOSEC) 20 mg DAILY PO 03/17/20 09:00 03/24/20 08:48 Patient Own Medication (Patient'S Own Med) MYCOPHENOLATE (MYFORTIC) DR 18... BID PO 03/16/20 21:00 03/24/20 08:47 Prednisone (Deltasone) 5 mg DAILY PO 03/17/20 09:00 03/24/20 08:48 Quetiapine Fumarate (SEROquel) 12.5 mg BID PO 03/16/20 21:00 03/17/20 10:09 DC 03/16/20 21:16 Quetiapine Fumarate (SEROquel) 12.5 mg BID PRN PO agitation 03/16/20 15:00 03/16/20 17:12 DC Ramelteon (Rozerem) 8 mg QHS PO 03/17/20 21:00 03/23/20 20:34 Senna (Senokot) 1 tab QHS PO 03/16/20 21:00 03/22/20 20:57 Sirolimus (Rapamune) 2 mg DAILY PO 03/23/20 09:00 03/24/20 08:48 Sodium Bicarbonate (Sodium Bicarbonate) 325 mg BID PO 03/17/20 21:00 03/24/20 08:48 Tacrolimus (Prograf) 0.5 mg DAILY PO 03/17/20 09:00 03/17/20 16:05 DC 03/17/20 12:19 Temazepam (Restoril) 15 mg QHS PO 03/20/20 21:00 03/23/20 20:34 Ursodiol (Actigall) 300 mg BID PO 03/16/20 21:00 03/24/20 08:48 Vitamin D (Vitamin D) 1,000 units DAILY PO 03/17/20 09:00 03/24/20 08:48 ROLAN ENGLE MD Mar 24, 2020 11:12
[2020-03-24 14:00] VITALS: BP 144/82
[2020-03-24 20:00] VITALS: BP 145/84
[2020-03-24] MEDS: SENNA 8.6 MG TAB (SENOKOT) PO SCH (20:08)
[2020-03-24] MEDS: TEMAZEPAM 15 MG CAP PO SCH (20:08)
[2020-03-24] MEDS: RAMELTEON 8 MG TAB (ROZEREM) PO SCH (20:08)
[2020-03-25 06:00] VITALS: BP 148/85
[2020-03-25] MEDS: SIROLIMUS 1 MG TAB (RAPAMUNE) PO SCH (07:25)
[2020-03-25] MEDS: DOCUSATE SODIUM 100 MG CAP PO SCH ×2 (07:25→19:57)
[2020-03-25] MEDS: OLANZapine 5 MG TAB PO SCH ×2 (07:25→19:57)
[2020-03-25] MEDS: ursodioL 300 MG CAP PO SCH ×2 (07:25→19:58)
[2020-03-25] MEDS: ATORVASTATIN 20 MG TAB PO SCH (07:25)
[2020-03-25] MEDS: OMEPRAZOLE 20 MG CAP PO SCH (07:25)
[2020-03-25] MEDS: CARVedilol 12.5 MG TAB PO SCH ×2 (07:26→19:58)
[2020-03-25] MEDS: ASPIRIN 81 MG ENTERIC TAB PO SCH (07:26)
[2020-03-25] MEDS: allopurinoL 100 MG TAB PO SCH (07:26)
[2020-03-25] MEDS: VITAMIN D 1,000 INTERNATIONAL UNITS TABLET PO SCH (07:26)
[2020-03-25] MEDS: CALCITRIOL 0.25 MCG CAP (S0169) PO SCH (07:27)
[2020-03-25] MEDS: MYCOPHENOLATE 180 MG PO SCH ×2 (07:27→19:56)
[2020-03-25] MEDS: predniSONE 5 MG TAB PO SCH (07:27)
[2020-03-25] MEDS: amLODIPine 10 MG TAB PO SCH (07:27)
[2020-03-25] MEDS: LACTOBACILLUS ACIDOPHILUS CAP (BACID) PO SCH (07:27)
[2020-03-25] MEDS: SODIUM BICARBONATE 325 MG TAB PO SCH ×2 (07:27→19:58)
[2020-03-25] MEDS: HEPARIN SOD (PORCINE) 5000UNITS/ML 1ML VIAL/SYRINGE SC SCH ×3 (07:28→20:12)
[2020-03-25] MEDS: REMEDY PHYTOPLEX Z-GUARD PASTE 113GM TUBE (FROM STOREROOM PRODUCT) TOP SCH ×3 (07:29→19:59)
[2020-03-25 13:57] VITALS: BP 149/77
[2020-03-25] MEDS: TEMAZEPAM 15 MG CAP PO SCH (19:57)
[2020-03-25] MEDS: SENNA 8.6 MG TAB (SENOKOT) PO SCH (19:58)
[2020-03-25] MEDS: RAMELTEON 8 MG TAB (ROZEREM) PO SCH (19:58)
[2020-03-25 20:00] VITALS: BP 156/79
[2020-03-26 05:43] VITALS: BP 141/76
[2020-03-26] MEDS: ATORVASTATIN 20 MG TAB PO SCH (07:20)
[2020-03-26] MEDS: VITAMIN D 1,000 INTERNATIONAL UNITS TABLET PO SCH (07:21)
[2020-03-26] MEDS: DOCUSATE SODIUM 100 MG CAP PO SCH ×2 (07:21→20:48)
[2020-03-26] MEDS: allopurinoL 100 MG TAB PO SCH (07:21)
[2020-03-26] MEDS: ASPIRIN 81 MG ENTERIC TAB PO SCH (07:21)
[2020-03-26] MEDS: CARVedilol 12.5 MG TAB PO SCH ×2 (07:21→20:50)
[2020-03-26] MEDS: OLANZapine 5 MG TAB PO SCH ×2 (07:22→20:51)
[2020-03-26] MEDS: OMEPRAZOLE 20 MG CAP PO SCH (07:22)
[2020-03-26] MEDS: predniSONE 5 MG TAB PO SCH (07:22)
[2020-03-26] MEDS: SODIUM BICARBONATE 325 MG TAB PO SCH ×2 (07:22→20:51)
[2020-03-26] MEDS: amLODIPine 10 MG TAB PO SCH (07:22)
[2020-03-26] MEDS: LACTOBACILLUS ACIDOPHILUS CAP (BACID) PO SCH (07:22)
[2020-03-26] MEDS: ursodioL 300 MG CAP PO SCH ×2 (07:22→20:49)
[2020-03-26] MEDS: CALCITRIOL 0.25 MCG CAP (S0169) PO SCH (07:23)
[2020-03-26] MEDS: MYCOPHENOLATE 180 MG PO SCH ×2 (07:23→20:50)
[2020-03-26] MEDS: SIROLIMUS 1 MG TAB (RAPAMUNE) PO SCH (07:23)
[2020-03-26] MEDS: REMEDY PHYTOPLEX Z-GUARD PASTE 113GM TUBE (FROM STOREROOM PRODUCT) TOP SCH ×3 (07:24→20:48)
[2020-03-26] MEDS: HEPARIN SOD (PORCINE) 5000UNITS/ML 1ML VIAL/SYRINGE SC SCH ×2 (07:24→20:52)
[2020-03-26 14:08] VITALS: BP 142/83
[2020-03-26 19:52] VITALS: BP 155/85
[2020-03-26] MEDS: SENNA 8.6 MG TAB (SENOKOT) PO SCH (20:48)
[2020-03-26] MEDS: RAMELTEON 8 MG TAB (ROZEREM) PO SCH (20:51)
[2020-03-26] MEDS: TEMAZEPAM 15 MG CAP PO SCH (20:51)
[2020-03-27 06:00] VITALS: BP 156/89
[2020-03-27 07:07] LABS: BASO % 0.7 % (0.0-1.0); EOS # 0.1 10^3/uL (0.0-0.5); EOS % 1.1 % (0.0-3.0); HEMATOCRIT 34.3 % (42.0-52.0); LYMPH # 1.3 10^3/uL (1.5-5.0); LYMPH % 29.2 % (24.0-44.0); MEAN CORPUSCULAR HGB CONC 32.1 g/dl (32.0-36.5); MEAN CORPUSCULAR VOLUME 90.5 fl (80.0-96.0); MONO # 0.3 10^3/uL (0.0-0.8); MONO % 7.6 % (0.0-5.0); NEUTROPHILS # 2.7 10^3/uL (1.5-8.5); NEUTROPHILS % 60.5 % (36.0-66.0); PLATELET COUNT, AUTOMATED 104 10^3/uL (150-450); RED BLOOD COUNT 3.79 10^6/uL (4.30-6.10); WHITE BLOOD COUNT 4.5 10^3/uL (4.0-10.0)
[2020-03-27 07:23] LABS: CALCIUM LEVEL 9.3 MG/DL (8.8-10.2); CREATININE FOR GFR 1.92 MG/DL (0.70-1.30); GLOMERULAR FILTRATION RATE 37.6 (>49); POTASSIUM SERUM 3.4 MEQ/L (3.5-5.1)
[2020-03-27] MEDS: allopurinoL 100 MG TAB PO SCH (08:18)
[2020-03-27] MEDS: LACTOBACILLUS ACIDOPHILUS CAP (BACID) PO SCH (08:18)
[2020-03-27] MEDS: SIROLIMUS 1 MG TAB (RAPAMUNE) PO SCH (08:18)
[2020-03-27] MEDS: SODIUM BICARBONATE 325 MG TAB PO SCH ×2 (08:18→21:26)
[2020-03-27] MEDS: OLANZapine 5 MG TAB PO SCH ×2 (08:18→21:26)
[2020-03-27] MEDS: CALCITRIOL 0.25 MCG CAP (S0169) PO SCH (08:19)
[2020-03-27] MEDS: VITAMIN D 1,000 INTERNATIONAL UNITS TABLET PO SCH (08:19)
[2020-03-27] MEDS: amLODIPine 10 MG TAB PO SCH (08:19)
[2020-03-27] MEDS: ASPIRIN 81 MG ENTERIC TAB PO SCH (08:19)
[2020-03-27] MEDS: ursodioL 300 MG CAP PO SCH ×2 (08:19→21:26)
[2020-03-27] MEDS: OMEPRAZOLE 20 MG CAP PO SCH (08:19)
[2020-03-27] MEDS: predniSONE 5 MG TAB PO SCH (08:19)
[2020-03-27] MEDS: CARVedilol 12.5 MG TAB PO SCH ×2 (08:19→21:27)
[2020-03-27] MEDS: MYCOPHENOLATE 180 MG PO SCH ×2 (08:20→21:27)
[2020-03-27] MEDS: DOCUSATE SODIUM 100 MG CAP PO SCH ×2 (08:20→21:00)
[2020-03-27] MEDS: HEPARIN SOD (PORCINE) 5000UNITS/ML 1ML VIAL/SYRINGE SC SCH ×2 (08:20→21:26)
[2020-03-27] MEDS: ATORVASTATIN 20 MG TAB PO SCH (08:20)
[2020-03-27] MEDS: REMEDY PHYTOPLEX Z-GUARD PASTE 113GM TUBE (FROM STOREROOM PRODUCT) TOP SCH ×3 (08:21→21:00)
[2020-03-27] MEDS ORDERED: POTASSIUM CHLORIDE 10 MEQ SR TABLET PO ONE ×2 (08:45→09:45)
[2020-03-27] MEDS ORDERED: SODI325T9 PO (09:54)
[2020-03-27] MEDS ORDERED: PRED5TA PO (09:54)
[2020-03-27] MEDS ORDERED: ALLO10TA PO (09:54)
[2020-03-27] MEDS ORDERED: CARV12.5 PO (09:54)
[2020-03-27] MEDS ORDERED: ATOR40TA75 PO (09:54)
[2020-03-27] MEDS ORDERED: RISATAB3 PO (09:54)
[2020-03-27] MEDS ORDERED: ROCA0.5C PO (09:54)
[2020-03-27] MEDS ORDERED: OLAN5TAB PO (09:54)
[2020-03-27] MEDS ORDERED: SIRO1TAB3 PO (09:54)
[2020-03-27] MEDS ORDERED: AMLO1TAB25 PO (09:54)
[2020-03-27] MEDS ORDERED: REST15CA PO (09:54)
[2020-03-27] MEDS ORDERED: ASPI81TAEC PO (09:54)
[2020-03-27] MEDS ORDERED: ACTI300C PO (09:54)
[2020-03-27] MEDS ORDERED: OMEP-218 PO (09:54)
[2020-03-27] MEDS ORDERED: RAME8TAB2 PO (09:54)
--- NOTE | 2020-03-27 11:05 | IPNPDOC ---
PM&R Progress Note DATE OF SERVICE: Mar 27, 2020 Associate Professor Of Biology Progress Note Subjective: Patient seen in his room asking if he can get up and walk. He denies any worsening abdominal pain and is ready to go home tomorrow. REVIEW OF SYSTEMS: The following is a completed review of systems and has been reviewed. Review of systems otherwise unremarkable. PAIN: Patient self reports no pain EYES: No recent vision changes EARS, NOSE, & THROAT: No throat pain, or dysphagia, or rhinorrhea CARDIOVASCULAR: Denies chest pain or palpitations PULMONARY: Denies shortness of breath GASTROINTESTINAL: Denies constipation/diarrhea GENITOURINARY: denies dysuria MUSCULOSKELETAL: generalized weakness NEUROLOGICAL: +encephalopathic (improving) HEMATOLOGICAL: +chronic anemia SKIN: denies rash PSYCHIATRIC: flat affect All other review of systems found to be negative. PHYSICAL EXAMINATION: VITAL SIGNS: Please see below. GENERAL: flat affect (improving) HEENT: PERRL. Extraocular movements intact. Clear conjunctiva CARDIOVASCULAR: Regular rate and rhythm. No murmurs, rubs, or gallops LUNGS: Clear to auscultation bilaterally. No wheezes. No rhonchi ABDOMEN: Soft,non tender to palpation, nondistended. Positive bowel sounds. Normal active bowel sounds NEUROLOGICAL: Alert and oriented times three. Cranial nerves II through XII grossly intact. Sensation grossly intact EXTREMITIES: 5-\5 strength bilateral upper extremities. 5-\5 strength right lower extremity.5-/5 strength in left lower extremity. SKIN: intact ASSESSMENT:64-year-old M with past medical history of ESRD s/p bilat kidney transplants who presents status post cholangitis due to choledocolithiasis with sepsis and encephalopathy PLAN: 1.Rehab- PT/OT advance gait and ADLs, strengthen/stretch/maintain ROM all 4 limbs- able to ambulate without AD inconsistently at times needs a RW 2. Neuro/Psych- patient with reported hx of longstanding Klonipin use which per his he was mentally stable on this dose until he started to become paranoid and was switched to Paxil which was discontinued prior to admission on ARU due to concern for medication related encephalopathy contributing to infectious cause of encephalopathy, patient has made modest improvements on Zyprexa and Restoril, does NOT tolerate SSRIs will recommend outpatient psychiatry to monitor his medications and manage any dose adjustments or medication changes going forward 3. CArdiac- hx of NSTEMI and CAD- c/u ASA and carvedilol -Hx HTN c/u amlopidine -medicine consulted to assist in overall management 4. Resp -monitor for infection 5. GI- c/p ERCP for choledocholithiasis and course of IV antibiotics for cholangitis, s/p course of Augmentin-f/u GI with Dr. Corcoran to discuss recent ERCP and tumor marker results, monitor for worsening abdominal symptoms- patient without leukocytosis and abdominal exam benign, if clinical picture worsens, will ask for input from ID, stable so far -c/u ursodiol -ppx omeprazole -poor appetite, c/u q2h feeds with nursing while awake, FS BID ordered to monitor for hypoglycemia- educated on importance of frequent feeds during the day 6. Renal- c/u tacrolimus/mycophenolate/prednisone for renal transplants, renal consulted to follow-along while inhouse, f/u as outpatient -c/u calcitriol -c/u allopurinol 7. DVT ppx- heparin 8. Pain- tylenol prn 9. Psych- c/u Restoril and Zyprexa- will refer to outpatient psych 10. Dispo- 03-28-20 to home, progressing towards goals Allergies Coded Allergies: codeine (Verified Adverse Reaction, Mild, N/V, 03/31/19) meperidine (Verified Adverse Reaction, Mild, N/V, 03/31/19) morphine (Verified Adverse Reaction, Mild, N/V, 03/31/19) HAS TAKEN MORPHINE WITH ZOFRAN AND TOLERATED WELL oxycodone (Verified Adverse Reaction, Mild, N/V, 03/31/19) uses zofran prior to admin vancomycin (Verified Adverse Reaction, Mild, confusion, 03/31/19) Vital Signs Vital Signs Date Time Temp Pulse Resp B/P (MAP) Pulse Ox O2 Delivery O2 Flow Rate FiO2 03/27/20 08:19 68 156/89 03/27/20 06:00 98.3 18 98 Room Air Laboratory Data CBC/BMP Laboratory Tests 03/27/20 06:47 Labs 24H Laboratory Tests 2 03/26/20 16:40: Bedside Glucose (Misc Panel) 130H 03/26/20 19:33: Bedside Glucose (Misc Panel) 139H 03/27/20 05:57: Bedside Glucose (Misc Panel) 88 03/27/20 06:45: 03/27/20 06:47: Immature Granulocyte % (Auto) 0.9, Neutrophils (%) (Auto) 60.5, Lymphocytes (%) (Auto) 29.2, Monocytes (%) (Auto) 7.6H, Eosinophils (%) (Auto) 1.1, Basophils (%) (Auto) 0.7, Neutrophils # (Auto) 2.7, Lymphocytes # (Auto) 1.3L, Monocytes # (Auto) 0.3, Eosinophils # (Auto) 0.1, Basophils # (Auto) 0.0, Nucleated Red Blood Cells % (auto) 0.0, Anion Gap 7L, Glomerular Filtration Rate 37.6L, Jarrod cium Level 9.3 Current Medications Current Medications Current Medications Medications (Trade) Dose Ordered Sig/Shanae Route PRN Reason Start Time Stop Time Status Last Admin Dose Admin Acetaminophen (Tylenol Tab) 650 mg Q4HP PRN PO fever/MILD PAIN (PS 1-4) 03/16/20 14:30 03/17/20 20:13 Allopurinol (Zyloprim) 100 mg DAILY PO 03/20/20 09:00 03/27/20 08:18 Allopurinol (Zyloprim) 200 mg DAILY PO 03/17/20 09:00 03/19/20 09:19 DC 03/18/20 09:00 Amlodipine Besylate (Norvasc) 5 mg DAILY PO 03/17/20 09:00 03/18/20 17:32 DC 03/18/20 13:07 Amlodipine Besylate (Norvasc) 10 mg DAILY PO 03/19/20 09:00 03/27/20 08:19 Amoxicillin/ Clavulanate Potassium (Augmentin) 875 mg BID PO 03/16/20 21:00 03/19/20 09:01 DC 03/19/20 09:50 Aspirin (Ecotrin) 81 mg DAILY PO 03/17/20 09:00 03/27/20 08:19 Atorvastatin Calcium (Lipitor) 40 mg DAILY PO 03/17/20 09:00 03/27/20 08:20 Calcitriol (Rocaltrol) 0.5 mcg DAILY PO 03/17/20 09:00 03/27/20 08:19 Carvedilol (COReg) 12.5 mg BID PO 03/16/20 21:00 03/27/20 08:19 Docusate Sodium (Colace) 100 mg BID PO 03/16/20 21:00 03/26/20 07:21 Fluoxetine HCl (PROzac) 10 mg QHS PO 03/17/20 21:00 03/17/20 10:25 DC Fluoxetine HCl (PROzac) 10 mg QHS PO 03/17/20 21:00 03/20/20 11:35 DC 03/19/20 20:11 Heparin Sodium (Porcine) (Heparin) 5,000 units Q12H SC 03/16/20 21:00 03/27/20 08:20 Home Med (Med Rec Complete!) ASDIRECTED XX 03/16/20 15:30 03/16/20 15:31 DC Lactobacillus Acidophilus (Bacid) 1 ea DAILY PO 03/20/20 09:00 03/27/20 08:18 Lactobacillus Acidophilus (Bacid) 1 ea TID PO 03/16/20 16:00 03/19/20 09:21 DC 03/18/20 20:56 Lorazepam (Ativan) 2 mg STAT STAT IM 03/20/20 06:05 03/20/20 06:08 DC Lorazepam (Ativan) 2 mg STAT STAT IM 03/20/20 06:16 03/20/20 06:17 DC 03/20/20 06:37 Lorazepam (Ativan) 2 mg STAT STAT IV 03/20/20 06:04 03/20/20 06:09 DC Megestrol Acetate (Megace Acetate Suspension) 400 mg DAILY PO 03/23/20 09:00 03/23/20 16:45 DC Miscellaneous (Unresolved Patient Own Med Order) SEE LABEL COMMENTS DAILY XX 03/16/20 09:00 03/16/20 19:55 DC Nitroglycerin (Nitrostat (1/ 150)) 0.4 mg Q5MP PRN SL CHEST PAIN 03/16/20 15:00 03/19/20 11:49 Non-Formulary Medication 2 ea DAILY PO 03/22/20 09:00 UNV Olanzapine (ZyPREXA) 2.5 mg BID PO 03/17/20 09:00 03/20/20 07:33 DC 03/19/20 20:11 Olanzapine (ZyPREXA) 5 mg BID PO 03/20/20 09:00 03/27/20 08:18 Omeprazole (PriLOSEC) 20 mg DAILY PO 03/17/20 09:00 03/27/20 08:19 Patient Own Medication (Patient'S Own Med) MYCOPHENOLATE (MYFORTIC) 18... BID PO 03/16/20 21:00 03/27/20 08:20 Prednisone (Deltasone) 5 mg DAILY PO 03/17/20 09:00 03/27/20 08:19 Quetiapine Fumarate (SEROquel) 12.5 mg BID PO 03/16/20 21:00 03/17/20 10:09 DC 03/16/20 21:16 Quetiapine Fumarate (SEROquel) 12.5 mg BID PRN PO agitation 03/16/20 15:00 03/16/20 17:12 DC Ramelteon (Rozerem) 8 mg QHS PO 03/17/20 21:00 03/26/20 20:51 Senna (Senokot) 1 tab QHS PO 03/16/20 21:00 03/25/20 19:58 Sirolimus (Rapamune) 2 mg DAILY PO 03/23/20 09:00 03/27/20 08:18 Sodium Bicarbonate (Sodium Bicarbonate) 325 mg BID PO 03/17/20 21:00 03/27/20 08:18 Tacrolimus (Prograf) 0.5 mg DAILY PO 03/17/20 09:00 03/17/20 16:05 DC 03/17/20 12:19 Temazepam (Restoril) 15 mg QHS PO 03/20/20 21:00 03/26/20 20:51 Ursodiol (Actigall) 300 mg BID PO 03/16/20 21:00 03/27/20 08:19 Vitamin D (Vitamin D) 1,000 units DAILY PO 03/17/20 09:00 03/27/20 08:19 ROLAN ENGLE MD Mar 27, 2020 11:05
[2020-03-27 14:00] VITALS: BP 140/77
[2020-03-27] MEDS ORDERED: FLUBLOK(EGG FREE)(QUAD)INFLUENZA VACC 0.5ML SYRINGE 18YRS & OLDER IM ONE (16:00)
[2020-03-27] MEDS ORDERED: PNEUMOCOCCAL VACCINE 0.5ML SYRINGE (PNEUMOVAX 23) IM ONE (18:00)
[2020-03-27 20:00] VITALS: BP 153/81
[2020-03-27] MEDS: SENNA 8.6 MG TAB (SENOKOT) PO SCH (21:00)
[2020-03-27] MEDS: TEMAZEPAM 15 MG CAP PO SCH (21:26)
[2020-03-27] MEDS: RAMELTEON 8 MG TAB (ROZEREM) PO SCH (21:26)
[2020-03-28 06:00] VITALS: BP 144/83
[2020-03-28 07:20] LABS: CALCIUM LEVEL 9.5 MG/DL (8.8-10.2); CREATININE FOR GFR 1.92 MG/DL (0.70-1.30); GLOMERULAR FILTRATION RATE 37.6 (>49); POTASSIUM SERUM 3.8 MEQ/L (3.5-5.1)
[2020-03-28] MEDS ORDERED: FLUBLOK(EGG FREE)(QUAD)INFLUENZA VACC 0.5ML SYRINGE 18YRS & OLDER IM ONE (09:00)
[2020-03-28] MEDS: ATORVASTATIN 20 MG TAB PO SCH (10:33)
[2020-03-28] MEDS: ursodioL 300 MG CAP PO SCH (10:33)
[2020-03-28] MEDS: SODIUM BICARBONATE 325 MG TAB PO SCH (10:33)
[2020-03-28] MEDS: LACTOBACILLUS ACIDOPHILUS CAP (BACID) PO SCH (10:33)
[2020-03-28] MEDS: MYCOPHENOLATE 180 MG PO SCH (10:34)
[2020-03-28] MEDS: OMEPRAZOLE 20 MG CAP PO SCH (10:34)
[2020-03-28] MEDS: allopurinoL 100 MG TAB PO SCH (10:34)
[2020-03-28] MEDS: predniSONE 5 MG TAB PO SCH (10:34)
[2020-03-28] MEDS: HEPARIN SOD (PORCINE) 5000UNITS/ML 1ML VIAL/SYRINGE SC SCH (10:34)
[2020-03-28] MEDS: SIROLIMUS 1 MG TAB (RAPAMUNE) PO SCH (10:35)
[2020-03-28] MEDS: VITAMIN D 1,000 INTERNATIONAL UNITS TABLET PO SCH (10:35)
[2020-03-28] MEDS: DOCUSATE SODIUM 100 MG CAP PO SCH (10:35)
[2020-03-28] MEDS: ASPIRIN 81 MG ENTERIC TAB PO SCH (10:35)
[2020-03-28] MEDS: OLANZapine 5 MG TAB PO SCH (10:35)
[2020-03-28] MEDS: CALCITRIOL 0.25 MCG CAP (S0169) PO SCH (10:35)
[2020-03-28] MEDS: CARVedilol 12.5 MG TAB PO SCH (10:37)
[2020-03-28 10:38] VITALS: BP 154/83
[2020-03-28] MEDS: amLODIPine 10 MG TAB PO SCH (10:38)
--- NOTE | 2020-04-06 17:05 | IPN ---
DATE: 03/23/2020 SUBJECTIVE: Patient was seen and examined at the bedside today morning. He is afebrile, hemodynamically stable. He was actually getting physical therapy when I saw him. He is complaining of some chills. Otherwise his renal function is stable. Her was started on sirolimus 2 mg by mouth daily. OBJECTIVE: Vital signs: Temperature is 97.1 degrees Fahrenheit, blood pressure 157/80, pulse is 60, respiratory rate of 18, saturating 98% on room air, Intake and output: Urine output recorded is 1.2 liters yesterday, 375 mL so far today since overnight. Weight in the bed scale is not available. PHYSICAL EXAMINATION: GENERAL: Patient is awake, alert, oriented times two, getting physical therapy. No apparent distress. HEAD AND NECK: Extraocular muscles intact. Pupils equally round and reactive to light. Mucous membranes are moist. Neck is supple. There is no jugular venous distention (JVD). CARDIOVASCULAR: S1, S2, regular rate. No edema of the bilateral lower extremities. Right forearm arteriovenous (AV) fistula with thrill and bruit. RESPIRATORY: Chest is clear to auscultation bilaterally. Bilateral equal air entry. No rales or rhonchi. ABDOMEN: Soft, nontender. Renal allograft. MUSCULOSKELETAL: No clubbing or cyanosis. Pulses are 2+. CENTRAL NERVOUS SYSTEM: No focal deficit. He moves all extremities. LABORATORY REVIEW: BMP showed sodium 141, potassium 3.5, chloride 111, bicarbonate 20, BUN 23, creatinine 1.95. CURRENT INPATIENT MEDICATIONS: Patient's medications were all reviewed by myself. No significant change in the medications today as compared with yesterday, except that he has been started on sirolimus 2 mg by mouth daily. ASSESSMENT AND PLAN: 1. Renal allograft status. Patient's immunosuppression has been changed to sirolimus 2 mg by mouth daily along with mycophenolate and prednisone. Sirolimus level for tomorrow morning has been ordered. 2. Hypertension. Continue current dose of Coreg and amlodipine. Blood pressure is within the acceptable range. 3. Confusion and altered mental status. Clinically he is getting better, and he is less agitated and able to do physical therapy. 4. Chronic gout secondary to chronic kidney disease. Continue allopurinol 100 mg by mouth daily. 5. Metabolic acidosis. Continue current dose of sodium bicarbonate 325 mg by mouth twice a day. MTDD
--- NOTE | 2020-04-06 17:06 | IPN ---
DATE: 03/25/2020 SUBJECTIVE: Mr. Leonard is seen this morning on his bedside. He is currently sitting in the recliner chair with his feet up. He is awake and able to answer questions, but he seems quite depressed and talking in a very low tone. He denies any headache, dyspnea, chest pain, nausea or vomiting. Nursing staff reports that he has been taking his medications. PHYSICAL EXAMINATION: VITAL SIGNS: Temperature 97.7 degrees Fahrenheit, heart rate 70 per minute, respiratory rate 18 per minute, blood pressure 144/78 mmHg and oxygen saturation 98% on room air. HEENT: Head is atraumatic. Neck is supple and without JVD or thyroid enlargement. No oral thrush noted. HEART: Heart sounds are regular. LUNGS: Clear to auscultation. ABDOMEN: Soft and nontender. Bowel sounds are present. Transplant kidney is nontender. EXTREMITIES: Without any cyanosis or clubbing. NEUROLOGIC: He is awake, without a focal deficit, but seems quite depressed. LABORATORY DATA: The patient did not have any new labs done today. Yesterday his labs were appropriate with BUN 24 and creatinine 2.0. Electrolytes were normal. PROBLEMS: 1. Kidney transplant status: Patient remains on prednisone, Sirolimus, which was just started recently as his Tacrolimus was stopped last week. No changes are being made today. 2. Metabolic acidosis: His acidosis has improved and he continues with sodium bicarbonate supplement. 3. Gout: Remains asymptomatic on Allopurinol 100 mg daily. 4. Hypertension: At present his blood pressure is very well controlled on current medications and no changes are being made today. 5. Secondary hyperparathyroidism: Patient remains on Calcitriol 0.5 mcg daily. 6. Depression: This is new and in fact much worse. Patient remains on antidepressants. MTDD
--- NOTE | 2020-04-06 17:07 | IPN ---
DATE: 03/26/2020 SUBJECTIVE: Mr. Leonard is seen this morning on his bedside. He is sitting in the recliner chair with his feet elevated. He is awake and answering questions, however, he still seems quite confused and he keeps repeating same answer again and again. Nursing staff reports that he has been cooperative and taking his medications. He denies any dyspnea, chest pain, nausea, vomiting, diarrhea or fever. PHYSICAL EXAMINATION: Temperature 98.3 degrees Fahrenheit, heart rate 70 per minute, respiratory rate 16 per minute, blood pressure 140/70 mmHg and oxygen saturation 98% on room air. Head is atraumatic. Neck supple and without JVD or thyroid enlargement. Heart sounds are regular. Lungs clear to auscultation. Abdomen is soft and nontender, bowel sounds are normal. Extremities without any cyanosis or clubbing. Neurologically, he is awake, but confused and disoriented. LABORATORY DATA: Patient did not have any new labs done today. PROBLEMS: 1. Altered mentation: No significant global director air and climate change the last 24 hours. His medications have already been adjusted and will continue to monitor. This is not related to his kidney disease. 2. Kidney transplant status: Patient remains stable so far with his kidney function at about baseline. He will continue with current immunosuppressive therapy. 3. Hypertension: Blood pressure seems very well controlled on current medications and no changes are being made today. ROQUE
--- NOTE | 2020-04-06 17:08 | IPN ---
DATE: 03/27/2020 SUBJECTIVE: Mr. Leonard is seen this morning at his beside. He is walking in the hallway going to the gym for rehab. Patient remains very depressed and confused. He keeps apologizing without any obvious reason. He denies any dyspnea, chest pain, nausea, vomiting, fever or chills. PHYSICAL EXAMINATION: VITAL SIGNS: Temperature 98.2 degrees Fahrenheit, heart rate is 68 per minute and respiratory rate is 18 per minute. Blood pressure is 156/89 mmHg and oxygen saturation 98% on room air. HEENT: Head is atraumatic. NECK: Supple without JVD or thyroid enlargement. HEART: Regular. LUNGS: Clear to auscultation. ABDOMEN: Soft and nontender. Bowel sounds are normal. Transplant kidney is nontender. EXTREMITIES: Without any cyanosis or clubbing. NEUROLOGIC: He remains somewhat confused and keeps repeating the same answer. LABORATORY DATA: Todays labs showed a WBC count of 4.5, hemoglobin 11.0, hematocrit 34.3. Sodium 143, potassium 3.4, CO2 26, BUN 27, and creatinine 1.92. His Sirolimus level is 16.7 which was drawn on March 24 at 9:14 a.m. PROBLEMS: 1. Kidney transplant status, patient remains stable with kidney function at about baseline. Will continue with current immunosuppressive therapy. His Sirolimus high is somewhat high at 16.7, however this seems to be drawn at 9:17 which is probably after the morning dose. I am going to repeat his Sirolimus level and then we will consider to adjust the dose. 2. Hypokalemia, this is related to poor oral intake. Patient will be given potassium supplement and electrolytes repeated. 3. Hypertension, blood pressure is very well controlled on current medications and no changes have been made today. 4. Altered mentation. He is walking but looks very depressed and still not well oriented. He is repeating the same answers multiple times. EMMIED
--- NOTE | 2020-04-06 17:09 | IPN ---
DATE: 03/28/2020 SUBJECTIVE: Mr. Leonard is seen this morning at his bedside. He is currently sitting in the recliner chair. He is already dressed up and ready to go home. He denies any nausea, vomiting, dyspnea or chest pain. He has been ambulating well and has made progress with rehab. His mental status unfortunately remains quite different than his baseline. He is significantly depressed and communicates very poorly without any eye contact. PHYSICAL EXAMINATION: VITAL SIGNS: Temperature 98.7 degrees Fahrenheit, heart rate is 68 per minute and respiratory rate is 18 per minute. Blood pressure is 154/82 mmHg and oxygen saturation 96% on room air. HEENT: His head is atraumatic. There is no oral thrush or ulcers. NECK: Supple and without JVD or thyroid enlargement. HEART: Regular. LUNGS: Clear to auscultation. ABDOMEN: Soft and nontender. Bowel sounds are normal. EXTREMITIES: Without any cyanosis or clubbing. Transplant kidney is nontender. LABORATORY DATA: Todays labs show a sodium level of 142, potassium 3.8, chloride 114, CO2 21, BUN 26 and creatinine 1.92, glucose 85 and calcium 9.5. PROBLEMS: 1. Kidney transplant status. Transplant kidney has been functioning at about baseline. Patient has no uremic symptoms. His medications have been adjusted and Tacrolimus has been stopped while Sirolimus was started during this hospitalization. His last Sirolimus level was 16.7 on March 24. A repeat level from yesterday is still pending. Will continue with the current dose to confirm the level and then will make an adjustment on his Sirolimus dose. 2. Hypertension. Blood pressure is very well controlled on current medications. No changes are being made today. 3. Hypokalemia. He had mild hyperkalemia yesterday and it improved with oral potassium supplement. No changes are being made today. Patient should continue with a regular diet at home and no diuretic. MTDD
--- NOTE | 2020-04-10 12:44 | PMRDS ---
DATE OF ADMISSION: 03/16/2020 DATE OF DISCHARGE: 03/28/2020 CHIEF COMPLAINT/DISCHARGE DIAGNOSIS: Cholangitis with encephalopathy. HISTORY OF PRESENT ILLNESS: This is a 64-year-old male with a past medical history of end-stage renal disease; status post renal transplant, sarcoidosis, STEMI, hypertension, recurrent cholangitis; status post cholecystectomy, who was admitted to [facility] on 03/09/2020 with abdominal pain and encephalopathy. He was started on Meropenem for suspected cholangitis with ERCP confirming choledocholithiasis, for which she underwent stone removal and main bile duct dilatation and biliary tree sweep. He was started on Ursodiol and continued on I.V. antibiotics, which was switched to Zosyn and later to p.o. Augmentin. He had AZUCENA and hyperkalemia with persistent flat affect, thought to be due to hypoactive delirium, for which she was started on Seroquel. He was noted to have significant impairments in mobility and ADLs and deemed medically appropriate for discharge to ARU on 03/16/2020. PAST MEDICAL HISTORY: As per HPI. HOSPITAL COURSE: Patient was admitted and enrolled in comprehensive PT/OT, speech language pathology program. He received 24-hour nursing supervision and weekly team meetings were held to discuss his progress. Patient was initially treated with low dose Prozac in addition to an antipsychotic for his extremely flat affect and catatonic state, however, he suffered with insomnia and agitation and was eventually switched to Temazepam with improvement in his overall sleep and Zyprexa with general improvements in his overall mobility and function. Patient had a poor appetite during his hospital course, required every 2 hour feeding while awake. He continued to have a flat and depressed affect, however, was able to participate in therapy and make functional gains. His abdominal symptoms did not worsen, in fact his abdominal exam continued to improve. He had no leukocytosis or signs of recurring abdominal infection. He made steady gains in therapy and was deemed medically and functionally stable to return home with close outpatient follow-up with psychiatry. DISCHARGE MEDICATIONS: As per instructions. FUNCTIONAL HISTORY ON DISCHARGE: Patient was independent, able to walk 300 feet at standby assist level and negotiate stairs. Thank you for this referral. [facility]ITAL[facility]livia
== END 2020-03-28 14:45 | disposition home health service (06) | DRG 91 ==
LOC: M PM&R 12:45
PROVIDERS: ADMIT Physical Medicine & Rehabilitation; ATTEND Physical Medicine & Rehabilitation
DX: R26.89 Other abnormalities of gait and mobility (principal); N18.6 End stage renal disease; K83.09 Other cholangitis; N25.81 Secondary hyperparathyroidism of renal origin; E87.2 Acidosis; N17.9 Acute kidney failure, unspecified; Z94.0 Kidney transplant status; I12.0 Hypertensive chronic kidney disease with stage 5 chronic kidney disease or end stage renal disease; I25.2 Old myocardial infarction; D86.9 Sarcoidosis, unspecified; Z79.899 Other long term (current) drug therapy; Z79.82 Long term (current) use of aspirin; Z88.5 Allergy status to narcotic agent; Z88.8 Allergy status to other drugs, medicaments and biological substances; I25.10 Atherosclerotic heart disease of native coronary artery without angina pectoris; E78.5 Hyperlipidemia, unspecified; F41.9 Anxiety disorder, unspecified; F32.9 Major depressive disorder, single episode, unspecified; M10.30 Gout due to renal impairment, unspecified site; R41.0 Disorientation, unspecified; Z95.2 Presence of prosthetic heart valve; K59.00 Constipation, unspecified; E87.6 Hypokalemia

== ENCOUNTER 2020-04-24 20:47 | Emergency (ER) | payer MEDICARE, BC ==
[~2020-04-24] VITALS: Ht 170.2 cm; Wt 71.4 kg
[~2020-04-24 20:47] MED LIST changes: +ACTI300C PO; +AMLO1TAB25 PO; +MELA3TAB30 PO; +OLAN5TAB PO; +OMEP-218 PO; +QUET1TAB7 PO; +RAME8TAB2 PO; +REST15CA PO; +RISATAB3 PO; +SIRO1TAB3 PO; +SODI325T9 PO; +URSO300C3 PO
[2020-04-24 20:48] VITALS: BP 180/91
[2020-04-25] MEDS ORDERED: QUET5TAB PO ×2 (12:23→21:50)
[2020-04-25] MEDS ORDERED: MYCO1TAB PO (12:23)
[2020-04-25] MEDS ORDERED: RA M500C PO (12:23)
[2020-04-25] MEDS ORDERED: CVS5CHW2 PO (12:23)
[2020-04-25] MEDS ORDERED: TEMA7.5C PO (21:50)
[2020-04-25] MEDS ORDERED: MELA1TAB9 PO (21:50)
[2020-04-25] MEDS ORDERED: AMLO1TAB24 PO (21:50)
[2020-04-25] MEDS ORDERED: URSO300C3 PO (21:50)
[2020-04-25] MEDS ORDERED: ATOR40TA75 PO (21:50)
[2020-04-25] MEDS ORDERED: ALLO100T PO (21:50)
[2020-04-25] MEDS ORDERED: MYFO180T PO (21:50)
[2020-04-25] MEDS ORDERED: ROCA0.5C PO (21:50)
[2020-04-25] MEDS ORDERED: MAGN500C2 PO (21:50)
[2020-04-25] MEDS ORDERED: SIRO1TAB3 PO (21:50)
[2020-04-25] MEDS ORDERED: QUET1TAB7 PO (21:50)
[2020-04-25] MEDS ORDERED: ASPI-161 PO (21:50)
[2020-04-25] MEDS ORDERED: OMEP1CAP73 PO (21:50)
== END 2020-04-24 21:08 | disposition left against medical advice (07) ==
LOC: M ED 20:47
DX: Z53.21 Procedure and treatment not carried out due to patient leaving prior to being seen by health care provider (principal)

== ENCOUNTER 2020-04-25 11:31 | Inpatient (IN) | payer MEDICARE, BC ==
[~2020-04-25] VITALS: Ht 170.2 cm; Wt 68.2 kg
[2020-04-25] MEDS ORDERED: QUET5TAB PO ×2 (12:23→21:50)
[2020-04-25] MEDS ORDERED: CVS5CHW2 PO (12:23)
[2020-04-25] MEDS ORDERED: MYCO1TAB PO (12:23)
[2020-04-25] MEDS ORDERED: RA M500C PO (12:23)
[2020-04-25 13:18] LABS: HEMATOCRIT 31.2 % (42.0-52.0); HEMOGLOBIN 9.9 g/dl (13.5-17.5); MEAN CORPUSCULAR HEMOGLOBIN 27.7 pg (27.0-33.0); MEAN CORPUSCULAR HGB CONC 31.7 g/dl (32.0-36.5); MEAN CORPUSCULAR VOLUME 87.2 fl (80.0-96.0); RED BLOOD COUNT 3.58 10^6/uL (4.30-6.10); WHITE BLOOD COUNT 4.1 10^3/uL (4.0-10.0)
[2020-04-25 13:38] LABS: PLATELET COUNT, AUTOMATED 85 10^3/uL (150-450)
[2020-04-25 13:44] LABS: ACETAMINOPHEN LEVEL 3.1 UG/ML (10.0-30.0); ALBUMIN 2.3 GM/DL (3.2-5.2); ALT/SGPT 17 U/L (12-78); BILIRUBIN,DIRECT 0.2 MG/DL (0.0-0.2); BILIRUBIN,TOTAL 0.5 MG/DL (0.2-1.0); BLOOD UREA NITROGEN 24 MG/DL (7-18); CARBON DIOXIDE LEVEL 28 MEQ/L (21-32); CHLORIDE LEVEL 100 MEQ/L (98-107); CK-MB VALUE MASS < 1.0 NG/ML (<3.6); CPK CREATINE PHOSPHOKINASE 33 U/L (39-308); CREATININE FOR GFR 1.88 MG/DL (0.70-1.30); ETHYL ALCOHOL (ETHANOL) < 0.003 % (0.000-0.010); GLOMERULAR FILTRATION RATE 38.5 (>49); GLUCOSE, FASTING 102 MG/DL (70-100); LIPASE 137 U/L (73-393); MB/CK RELATIVE INDEX 3.03 (< OR =4); POTASSIUM SERUM 3.7 MEQ/L (3.5-5.1); SALICYLATE LEVEL < 1.7 MG/DL (5.0-30.0); SODIUM LEVEL 137 MEQ/L (136-145); TOTAL PROTEIN 5.3 GM/DL (6.4-8.2); TROPONIN I 0.03 NG/ML (< 0.10)
--- NOTE | 2020-04-25 13:49 | REPVR ---
PROCEDURE INFORMATION: Exam: CT Head Without Contrast Exam date and time: 04/25/2020 1:39 PM Age: 64 years old Clinical indication: Altered mental status/memory loss TECHNIQUE: Imaging protocol: Computed tomography of the head without contrast. Radiation optimization: All CT scans at this facility use at least one of these dose optimization techniques: automated exposure control; mA and/or kV adjustment per patient size (includes targeted exams where dose is matched to clinical indication); or iterative reconstruction. COMPARISON: CT Head without contrast 03/03/2020 11:47 PM FINDINGS: Brain: There is no acute intracranial hemorrhage or mass effect. Mild diffuse volume loss is within the range of normal for patient age. There are small vessel ischemic changes within the periventricular and subcortical white matter, but the normal deleon/white matter delineation is maintained. Cerebral ventricles: No ventriculomegaly. Bones/joints: Unremarkable. No acute fracture. Paranasal sinuses: Visualized sinuses are unremarkable. No fluid levels. Mastoid air cells: Visualized mastoid air cells are well aerated. Soft tissues: Unremarkable. IMPRESSION: No acute hemorrhage or edema. Electronically signed by: Charito Singh On 04/25/2020 13:49:25 PM
--- NOTE | 2020-04-25 13:54 | REPVR ---
PROCEDURE INFORMATION: Exam: XR Chest, 2 Views Exam date and time: 04/25/2020 1:46 PM Age: 64 years old Clinical indication: Other: Altered mental status TECHNIQUE: Imaging protocol: XR of the chest Views: 2 views. COMPARISON: CR PORTABLE CHEST X-RAY 03/09/2020 2:09 AM FINDINGS: Lungs: Hyperinflation of the lungs and flattening of the hemidiaphragms are compatible with COPD. There are streaky bibasilar airspace opacities, likely atelectasis. Pleural space: Blunting of the costophrenic sulci bilaterally could reflect small effusions are focal pleural thickening. Heart/Mediastinum: There is stable cardiomegaly. Bones/joints: Stenosis there is a left humeral arthroplasty. IMPRESSION: Persistent streaky bibasilar opacities, likely atelectasis. Focal pleural thickening versus small bilateral pleural effusions, unchanged. Electronically signed by: Charito Singh On 04/25/2020 13:54:06 PM
--- NOTE | 2020-04-25 14:26 | REPVR ---
PROCEDURE INFORMATION: Exam: CT Abdomen And Pelvis Without Contrast Exam date and time: 04/25/2020 1:39 PM Age: 64 years old Clinical indication: Abdominal pain; Generalized; Additional info: Gen abd pain TECHNIQUE: Imaging protocol: Computed tomography of the abdomen and pelvis without contrast. Radiation optimization: All CT scans at this facility use at least one of these dose optimization techniques: automated exposure control; mA and/or kV adjustment per patient size (includes targeted exams where dose is matched to clinical indication); or iterative reconstruction. COMPARISON: CT ABD PELVIS W/O CONTRAST 03/19/2020 12:43 PM FINDINGS: Pleural space: There are small, loculated pleural effusions bilaterally versus pleural thickening. Heart: There is moderate cardiomegaly. Liver: Normal. No mass. Gallbladder and bile ducts: The gallbladder is surgically absent. Pancreas: Normal. No ductal dilation. Spleen: Normal. No splenomegaly. Adrenals: Normal. No mass. Kidneys and ureters: The [place] kidneys are atrophic and calcified. There is a left pelvic renal transplant with a stable lower pole cyst measuring up to 7.5 cm in diameter. Stomach and bowel: There is questionable gastric mucosal thickening versus artifact reflecting underdistention. Appendix: No evidence of appendicitis. Intraperitoneal space: There is diffuse nonspecific mesenteric stranding. Vasculature: Unremarkable. No abdominal aortic aneurysm. Lymph nodes: Unremarkable. No enlarged lymph nodes. Urinary bladder: Unremarkable as visualized. Reproductive: Unremarkable as visualized. Bones/joints: There is a left bipolar hip arthroplasty. Soft tissues: There is nonspecific diffuse soft tissue anasarca. IMPRESSION: 1. Small, loculated pleural effusions versus pleural thickening. 2. Questionable gastric mucosal thickening versus artifact reflecting underdistention. 3. Stable left renal transplant. 4. Nonspecific stranding of the mesenteric fat diffusely. Electronically signed by: Charito Singh On 04/25/2020 14:26:14 PM
[2020-04-25 15:15] LABS: AMPHETAMINES LEVEL URINE NEGATIVE (NEGATIVE); BARBITURATES URINE NEGATIVE (NEGATIVE); BENZODIAZEPINES URINE NEGATIVE (NEGATIVE); CANNABINOIDS URINE NEGATIVE (NEGATIVE); COCAINE METABOLITE URINE NEGATIVE (NEGATIVE); METHADONE URINE NEGATIVE (NEGATIVE); OPIATES URINE NEGATIVE (NEGATIVE); PHENCYCLIDINE URINE NEGATIVE (NEGATIVE)
[2020-04-25] MEDS ORDERED: ATORVASTATIN 20 MG TAB PO ONE (21:30)
[2020-04-25] MEDS ORDERED: amLODIPine 10 MG TAB PO ONE (21:30)
[2020-04-25] MEDS ORDERED: CARVedilol 12.5 MG TAB PO ONE (21:30)
[2020-04-25] MEDS ORDERED: MYFO180T PO (21:50)
[2020-04-25] MEDS ORDERED: SIRO1TAB3 PO (21:50)
[2020-04-25] MEDS ORDERED: URSO300C3 PO (21:50)
[2020-04-25] MEDS ORDERED: ASPI-161 PO (21:50)
[2020-04-25] MEDS ORDERED: ALLO100T PO (21:50)
[2020-04-25] MEDS ORDERED: MAGN500C2 PO (21:50)
[2020-04-25] MEDS ORDERED: ROCA0.5C PO (21:50)
[2020-04-25] MEDS ORDERED: TEMA7.5C PO (21:50)
[2020-04-25] MEDS ORDERED: AMLO1TAB24 PO (21:50)
[2020-04-25] MEDS ORDERED: ATOR40TA75 PO (21:50)
[2020-04-25] MEDS ORDERED: MELA1TAB9 PO (21:50)
[2020-04-25] MEDS ORDERED: OMEP1CAP73 PO (21:50)
[2020-04-25] MEDS ORDERED: QUET1TAB7 PO (21:50)
[2020-04-25] MEDS ORDERED: MAGNESIUM OXIDE 400 MG TAB (MAG-OX) PO ONE (22:00)
[2020-04-25] MEDS ORDERED: QUEtiapine FUMARATE 50 MG TAB PO ONE (22:00)
[2020-04-26] MEDS ORDERED: MAALOX 30 ML SUSP *UDC PO PRN (01:00)
[2020-04-26] MEDS ORDERED: OLANZapine ORAL DISINTEGRATING TAB 5MG PO PRN (01:00)
[2020-04-26] MEDS ORDERED: traZODone 50 MG TAB PO PRN (01:00)
[2020-04-26] MEDS ORDERED: ACETAMINOPHEN TAB 650MG DOSE (2X325MG) PO PRN (01:00)
[2020-04-26] MEDS ORDERED: MOM 30ML SUSPENSION UDC PO PRN (01:00)
[2020-04-26 02:35] VITALS: BP 129/75
--- NOTE | 2020-04-26 05:44 | ECGEPIP ---
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
[2020-04-26] MEDS: CARVedilol 12.5 MG TAB PO SCH ×2 (09:00→21:11)
[2020-04-26] MEDS ORDERED: ursodioL 300 MG CAP PO SCH (09:00)
[2020-04-26] MEDS: ASPIRIN 81 MG ENTERIC TAB PO SCH (09:00)
[2020-04-26] MEDS: ursodioL 300 MG CAP PO SCH ×2 (09:00→21:06)
[2020-04-26] MEDS: allopurinoL 100 MG TAB PO SCH ×2 (09:00→21:06)
[2020-04-26] MEDS: OMEPRAZOLE 20 MG CAP PO SCH (09:00)
[2020-04-26] MEDS ORDERED: NON-FORMULARY 1 EA EA PO SCH ×2 (11:30→21:00)
[2020-04-26 12:43] LABS: URIC ACID 3.6 MG/DL (3.5-7.2)
--- NOTE | 2020-04-26 12:50 | HPEPDOC ---
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 Admitted to psychiatric unit because he can't control his thoughts. I am asked to provide a medical assessment of patient admitted to the psychiatric unit. My assessment is limited to medical problems and does not address any psychiatric problems which is deferred to the in-house psychiatrist. Medical History Congenital kidney disease with ESRD status post Renal transplant 2 Hypertension. History of Sarcoidosis CKD Stage 3. CAD and IA s/p stents placement Secondary hyperparathyroidism Anxiety Surgical History Kidney transplant 2. Removal first transplanted kidney due to infection removal of [place] kidneys due to infection PD catheter placement and removal Fistula creation. Left shoulder repair. Cardiac stent placement. 2018 Left hip replacement SOCIAL HISTORY: Denies alcohol use Denies tobacco use Denies illicit drug use FAMILY HISTORY: See chart ALLERGIES: Please see below. REVIEW OF SYSTEMS: Constitutional: No sweating or weight loss Eyes: No eye pain or acute blurred vision HENT: No complaints of headache or sore throat Cadiovascular: No Chest pain or palpitations Pulm: No SOB or cough Gastrointestinal: No N/V, no abdominal pain. Genitourinary: No dysuria or hematuria Musculoskeletal: No back pain or joint pain Skin: No rash or jaundice Neurological: No weakness. HOME MEDICATIONS: Please see below. PHYSICAL EXAMINATION: Constitutional: Awake and alert, in no apparent distress. Flat affect ENT: Sclera are clear. Mucosa is moist. Respiratory: Lungs CTA bilaterally. No respiratory distress. No use of accessory muscles. Cardiovascular: RRR S1 and S2 are normal, no murmur Gastrointestinal: Abdomen is soft, non tender, BS present. Musculoskeletal: No edema. Neurologic: No focal neurological deficit. Mental Status: A&O x3, normal affect Skin: Ecchymosis on arms and old fistula on right arm LABORATORY DATA: See below. MICROBIOLOGY: Please see below. 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 Admitted to psychiatric unit because he can't control his thoughts. I was asked to provide a medical evaluation. # History of kidney transplant with CKD stage III at baseline: Continue home immunosuppressive meds # Hypertension: Continue home meds amlodipine, Coreg # CAD status post stents: Continue aspirin and statin, Coreg # Hyper uricemia: Continue allopurinol A Yousef Hospitalist Vital Signs Vital Signs Date Time Temp Pulse Resp B/P (MAP) Pulse Ox O2 Delivery O2 Flow Rate FiO2 04/26/20 02:35 98.4 68 14 129/75 (93) 98 Room Air Laboratory Data Labs 24H Laboratory Tests 2 04/25/20 13:01: Nucleated Red Blood Cells % (auto) 0.0, Immature Platelet Fraction 2.8, Anion Gap 9, Glomerular Filtration Rate 38.5L, Calcium Level 9.0, Total Bilirubin 0.5, Direct Bilirubin 0.2, Aspartate Amino Transf (AST/SGOT) 26, Alanine A minotransferase (ALT/SGPT) 17, Alkaline Phosphatase 96, Ammonia 11, Total Creatine Kinase 33L, Creatine Kinase MB < 1.0, Creatine Kinase MB Relative Index 3.03, Troponin I 0.03, Total Protein 5.3L, Albumin 2.3L, Albumin/Globulin Ratio 0.8, Lipase 137, Thyroid Stimulating Hormone (TSH) 3.720, Salicylates Level < 1.7L, Acetaminophen Level 3.1L, Ethyl Alcohol Level < 0.003 04/25/20 14:42: Urine Color YELLOW, Urine Appearance CLEAR, Urine pH 6.0, Urine Specific [place] 1.011, Urine Protein 2+H, Urine Glucose (UA) NEGATIVE, Urine Ketones NEGATIVE, Urine Blood NEGATIVE, Urine Nitrite NEGATIVE, Urine Bilirubin NEGATIVE, Urine Urobilinogen 0.2, Urine Leukocyte Esterase NEGATIVE, Urine WBC (Auto) 3, Urine RBC (Auto) 2, Urine Hyaline Casts (Auto) 0, Urine Bacteria (Auto) NEGATIVE, Urine Squamous Epithelial Cells 0, Urine Sperm (Auto) 04/26/20 12:01: CBC/BMP Laboratory Tests 04/25/20 13:01 Microbiology Microbiology 04/25/20 Blood Culture, Received Pending Home Medications Scheduled Allopurinol (Allopurinol) 100 Mg Tablet, 100 MG PO DAILY Amlodipine Besylate (Amlodipine Besylate) 5 Mg Tablet, 10 MG PO QHS Aspirin (Aspirin EC) 81 Mg Tablet.dr, 81 MG PO DAILY Atorvastatin Calcium (Atorvastatin Calcium) 40 Mg Tablet, 40 MG PO QHS Calcitriol (Rocaltrol) 0.5 Mcg Capsule, 0.5 MCG PO DAILY Carvedilol (Carvedilol) 12.5 Mg Tab, 12.5 MG PO BID Cholecalciferol (Vitamin D3) (Vitamin D3) 1,000 Unit Tablet, 2,000 UNITS PO DAILY Magnesium Oxide (Magnesium Oxide) 500 Mg Capsule, 1,000 MG PO BID Melatonin (Melatonin) 5 Mg Tablet, 5 MG PO QHS Mycophenolate Sodium (Myfortic) 180 Mg Tablet.dr, 180 MG PO BID Omeprazole (Omeprazole) 20 Mg Capsule.dr, 20 MG PO DAILY Prednisone (Prednisone) 5 Mg Tablet, 5 MG PO DAILY Quetiapine Fumarate (Quetiapine Fumarate) 25 Mg Tablet, 12.5 MG PO DAILY Quetiapine Fumarate (Quetiapine Fumarate) 50 Mg Tablet, 50 MG PO QHS Sirolimus (Sirolimus) 1 Mg Tablet, 2 MG PO DAILY Ursodiol (Ursodiol) 300 Mg Capsule, 300 MG PO BID Scheduled PRN Nitroglycerin (Nitrostat) 0.4 Mg Subl, 0.4 MG SL NITRO PRN for CHEST PAIN Temazepam (Temazepam) 7.5 Mg Capsule, 7.5 MG PO QHS PRN for INSOMNIA Allergies Coded Allergies: codeine (Verified Adverse Reaction, Mild, N/V, 03/31/19) meperidine (Verified Adverse Reaction, Mild, N/V, 03/31/19) morphine (Verified Adverse Reaction, Mild, N/V, 03/31/19) HAS TAKEN MORPHINE WITH ZOFRAN AND TOLERATED WELL oxycodone (Verified Adverse Reaction, Mild, N/V, 03/31/19) uses zofran prior to admin vancomycin (Verified Adverse Reaction, Mild, confusion, 03/31/19) A-FIB/CHADSVASC A-FIB History Current/History of A-Fib/PAF?: No GIOVANNISEHEYDI Hays MD Apr 26, 2020 12:49
[2020-04-26 13:09] LABS: PTH INTACT 33.5 PG/ML (18.5-88.0)
[2020-04-26] MEDS: SIROLIMUS 1 MG TAB (RAPAMUNE) PO SCH (15:34)
[2020-04-26] MEDS: CALCITRIOL 0.25 MCG CAP (S0169) PO SCH (15:35)
[2020-04-26] MEDS: predniSONE 5 MG TAB PO SCH (15:35)
[2020-04-26 17:16] VITALS: BP 140/83
[2020-04-26] MEDS: MYCOPHENOLIC ACID 180 MG PO SCH (21:05)
[2020-04-26] MEDS: amLODIPine 5 MG TAB PO SCH (21:07)
[2020-04-26] MEDS: ATORVASTATIN 20 MG TAB PO SCH (21:08)
--- NOTE | 2020-04-27 07:15 | CR ---
DATE OF CONSULTATION: 04/26/2020 REQUESTING PHYSICIAN: Ana Valencia M.D. REASON FOR CONSULTATION: Management of immunosuppression in this patient with renal allograft status. CHIEF COMPLAINT: Patient is admitted at inpatient mental health unit because of psychiatric illness. HISTORY OF PRESENT ILLNESS: Mr. Santos Leonard is a 64-year-old male with a past medical history of end-stage renal disease; status post renal transplant x2, history of hypertension, sarcoidosis, nephropathy with a baseline creatinine of 1.8, and multiple other comorbidities as mentioned below. He is well known to the nephrology service from outpatient nephrology clinic and from previous hospitalizations. He presented to the inpatient mental health unit because he was unable to control his thoughts. Nephrology service was called for further help in the management of this patient because he is on immunosuppression as well. I saw and evaluated the patient today morning at the inpatient mental health unit. He reported that he was having generalized body aches and pains. He felt depressed to me. Otherwise, he denies any fevers, dysuria, cough or phlegm. PAST MEDICAL HISTORY: Chronic kidney disease stage 3 with renal allograft nephropathy; baseline creatinine of 1.8, renal transplant status; this is the second transplant, history of hypertension, sarcoidosis, coronary artery disease, history of MS; status post stents, secondary hyperparathyroidism, anxiety disorder, history of failed peritoneal dialysis, anemia and end-stage renal disease. PAST SURGICAL HISTORY: History of a kidney transplant type 2, history of transplant nephrectomy of the first transplant because of infection, bilateral [place] nephrectomy, history of PD catheter placement and removal, AV fistula placement, left shoulder repair, history of cardiac stents in 2018, left hip replacement, status post cholecystectomy. ALLERGIES: He is allergic to codeine, Meperidine, morphine, Oxycodone and vancomycin. FAMILY HISTORY: No significant family history of end-stage renal disease requiring hemodialysis. SOCIAL HISTORY: Patient lives at home with his . He denies any smoking, illicit drug abuse or alcohol abuse. REVIEW OF SYSTEMS: CONSTITUTIONAL: He denies any fever. He does report some chills. EYES: He denies any blurry vision or double vision. ENT: He denies any dysphagia or odynophagia. CARDIOVASCULAR: He denies any chest pain or palpitations. RESPIRATORY: He denies any shortness of breath or cough. GASTROINTESTINAL: He denies any nausea, vomiting. GENITOURINARY: He denies any dysuria or hematuria. MUSCULOSKELETAL: He denies any muscle aches and pains. SKIN: No rashes or ulcers. PSYCHIATRIC: He reports multiple thoughts and he is in the inpatient mental health unit at this time. CENTRAL NERVOUS SYSTEM: He denies any weakness or seizures. HEMATOLOGY/ONCOLOGY: No bleeding or bruising. All other review of systems is negative. PHYSICAL EXAMINATION: GENERAL: Patient is awake, alert, oriented x3, sitting up in the chair at this time. VITALS: Temperature 98.4 degrees Fahrenheit, blood pressure 129/75, pulse 68, respiratory rate 14, saturating 98% on room air. HEAD AND NECK: Extraocular muscles intact. Pupils equally round and reactive to light. Mucous membranes are moist. Neck is supple. There is no significant JVD. CARDIOVASCULAR: S1, S2, regular rate. Trace edema of the bilateral lower extremities. RESPIRATORY: Mildly decreased breath sounds at the bases. No active rales or rhonchi. ABDOMEN: Soft, positive bowel sounds. Renal allograft in lower abdomen, which is nontender with no bruit. MUSCULOSKELETAL: No clubbing or cyanosis. Pulses are 2+. CENTRAL NERVOUS SYSTEM: No focal deficit. Power is 5/5 in all extremities. PSYCHIATRIC: Patient has a depressed mood. LABORATORY REVIEW: CBC showed WBC 4.1, hemoglobin 9.9, platelets 85,000. BMP on arrival showed sodium 137, potassium 3.7, chloride 100, bicarb 28, BUN 24, creatinine 1.8, glucose 102. Iron level 40, transferrin saturation 19%, ferritin 357. IMAGING STUDIES: A CAT scan of the abdomen and pelvis was done yesterday, which showed small loculated pleural effusions versus pleural thickening, questionable gastric mucosal thickening versus artifact, stable left renal transplant, nonspecific stranding of the mesenteric fat. CAT scan of the head was done on arrival, which showed no acute hemorrhage or edema. CURRENT INPATIENT MEDICATIONS: Patient's medications were all reviewed by myself and include Tylenol p.r.n., Allopurinol 100 mg p.o. daily, Mylanta p.r.n., Amlodipine 10 mg daily, aspirin 81 mg daily, Lipitor 40 mg q.h.s., Calcitriol was started by myself 0.5 mcg p.o. daily. He is on Coreg 12.5 mg p.o. twice a day, magnesium oxide 1 gram p.o. x1 dose, Milk of Magnesia p.r.n., Olanzapine 5 mg every 4 hours p.r.n. agitation. Myfortic 150 mg p.o. twice a day was started by myself, and prednisone 5 mg p.o. daily was started by myself. He is on Seroquel 50 mg p.o. x1 dose. I also started him on Sirolimus 2 mg p.o. daily. He is on Trazodone 50 mg q.h.s. p.r.n. and he is on Ursodiol 300 mg p.o. twice a day. ASSESSMENT AND PLAN: 1. Renal allograft status: Patient was on Tacrolimus and because of his psychosis and because of possible association with posterior reversible encephalopathy, Tacrolimus was stopped and he was switched to Sirolimus. Continue Sirolimus, Myfortic and prednisone at this time for immunosuppression, renal allograft statuses. Renal allograft function is stable. 2. Chronic kidney disease stage 3: Patient has baseline creatinine of around 1.8. GFR stays between 35 to 40. Renal function is stable with normal electrolytes and no acid base abnormality. 3. Iron deficiency anemia: Patient will be started on oral iron. 4. Hypertension: Continue current dose of Amlodipine 10 mg p.o. daily and Coreg 12.5 mg p.o. twice a day. Blood pressure is well controlled with current medications. 5. Secondary hyperparathyroidism: Continue current dose of Calcitriol 0.5 mcg p.o. daily. PTH level will be checked in the morning. 6. 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 daily. 7. History of recurrent cholecystitis; status post cholecystectomy: Continue current dose of Ursodiol at 300 mg p.o. twice a day. Thank you for involving me in the care of this patient. I shall be happy to follow the patient along with you tomorrow morning. EMMIED
[2020-04-27 07:27] VITALS: BP 138/83
[2020-04-27 07:59] VITALS: BP 138/70
[2020-04-27] MEDS: MYCOPHENOLIC ACID 180 MG PO SCH ×2 (09:55→20:57)
[2020-04-27] MEDS: CALCITRIOL 0.25 MCG CAP (S0169) PO SCH (09:57)
[2020-04-27] MEDS: CARVedilol 12.5 MG TAB PO SCH ×2 (09:58→20:58)
[2020-04-27] MEDS: FERROUS GLUCONATE 324 MG TAB PO SCH (09:58)
[2020-04-27] MEDS: SIROLIMUS 1 MG TAB (RAPAMUNE) PO SCH (09:59)
[2020-04-27] MEDS: ursodioL 300 MG CAP PO SCH ×2 (09:59→20:58)
[2020-04-27] MEDS: predniSONE 5 MG TAB PO SCH (09:59)
[2020-04-27] MEDS: ASPIRIN 81 MG ENTERIC TAB PO SCH (10:00)
[2020-04-27] MEDS: OMEPRAZOLE 20 MG CAP PO SCH (10:00)
[2020-04-27 10:38] LABS: BASO % 0.5 % (0.0-1.0); HEMATOCRIT 28.5 % (42.0-52.0); HEMOGLOBIN 9.1 g/dl (13.5-17.5); LYMPH # 1.1 10^3/uL (1.5-5.0); LYMPH % 27.7 % (24.0-44.0); MEAN CORPUSCULAR HEMOGLOBIN 27.5 pg (27.0-33.0); MEAN CORPUSCULAR HGB CONC 31.9 g/dl (32.0-36.5); MEAN CORPUSCULAR VOLUME 86.1 fl (80.0-96.0); MONO # 0.5 10^3/uL (0.0-0.8); MONO % 11.7 % (0.0-5.0); NEUTROPHILS # 2.3 10^3/uL (1.5-8.5); NEUTROPHILS % 58.4 % (36.0-66.0); RED BLOOD COUNT 3.31 10^6/uL (4.30-6.10)
[2020-04-27 10:43] LABS: PLATELET COUNT, AUTOMATED 96 10^3/uL (150-450)
[2020-04-27 10:59] LABS: ALBUMIN 2.4 GM/DL (3.2-5.2); CALCIUM LEVEL 9.2 MG/DL (8.8-10.2); CREATININE FOR GFR 1.99 MG/DL (0.70-1.30); GLOMERULAR FILTRATION RATE 36.1 (>49); PHOSPHORUS LEVEL 2.5 MG/DL (2.5-4.9); POTASSIUM SERUM 3.9 MEQ/L (3.5-5.1)
[2020-04-27 12:03] LABS: BILIRUBIN,DIRECT 0.2 MG/DL (0.0-0.2); BILIRUBIN,TOTAL 0.6 MG/DL (0.2-1.0); C REACTIVE PROTEIN QUANTITATIV 6.92 MG/DL (0.00-0.30); TOTAL PROTEIN 5.2 GM/DL (6.4-8.2)
[2020-04-27] MEDS: QUEtiapine FUMARATE 12.5 MG HALF-TAB PO SCH (12:53)
--- NOTE | 2020-04-27 13:52 | MHHPE ---
DATE OF ADMISSION: 04/26/2020 HISTORY OF PRESENT ILLNESS: Information received from ED report - Patient is a 64-year-old , domiciled, male who was brought to the Emergency Room on a 940. He stated that he did not know why he was brought in, recalls that the Police brought him to [facility]. He reports that he feels as though his family is trying to find a way to get rid of him. He is alert and oriented times 3. When asked what his wifes name is he stated I don't think were even anymore, but her name is Greta. I think were . Patient reported that he was unable to control his anger lately and yesterday he reports getting angry, but does not recall why. He admits that he threw a glass and it relieved his anger; however, will not be around his grandchildren due to his poor impulse control. Reports he is suffering from severe depression and feels as though he has nothing to look forward to. Patient denies suicidal or homicidal ideations and self injury. He reported auditory hallucinations and visual hallucinations, but does not recall what he sees or hears. Reporting good appetite. According to collateral, patient's , she reports that patient has been in a state of delirium for quite some time, states he has not been able to recognize her and at times states who are you? Where did my go? states that this is extremely scary when it happens, reported that yesterday when patient threw a glass patients was digging for her wedding pictures so he could understand that she was his when he became extremely agitated. Patient at times does not recognize the family home that they live in. she was very tearful and states that she just wants her back. reports that she feels as though he needs his medications adjusted. She is fearful of him during these episodes of agitation and aggression. Patient reports that he has some paranoia because he gets excited and at times is miserable. He states this comes with old age. When I interviewed him he reported that he was picked up by the [facility] Police, but he denies that he had any hallucinations in the interview. SUICIDE/HOMICIDE HISTORY: He reports no suicidal ideation, gestures or attempts. Reports no homicidal or violent episodes although he did admit that he threw a glass, but states it wasnt in my wifes direction. ALCOHOL AND DRUG HISTORY: Patient reports no alcohol history, no tobacco. There was a report that he was in rehab; we will have to confirm this information. PSYCHIATRIC HISTORY: Patient denies that he has a psychiatric history although it is reported that he was admitted to Inpatient Mental Health earlier this year. He reports mild depression. He states that this depression is due to medications that he is taking. He does not remember the medications that he is taking. PAST MEDICAL HISTORY: He reports that he has third stage kidney disease and had a left kidney transplant in 1992 and a second kidney transplant in 2008. Reports that he had dialysis waiting for his second transplant. PAST SURGICAL HISTORY: Kidney transplants. MEDICATIONS: Patient is on numerous medications for kidney disease and transplants, immunocompromised medications. Allopurinol 100mg Aspirin 81 mg Atorvastatin 40 mg Calcitriol 12. 5 Amlodipine 5 mg Magnesium Oxide 500 mg Melatonin 5 mg Mycophenolate Na 180 mg Omeprazole 20 mg Prednisone 5 mg Seroquel 12.5 mg AM Seroquel 50 mg HS Sirolimus 2 g Temazepam 7.5 mg Ursodiol 300 mg ALLERGIES: He report that he is allergic to Codeine, Meperidine, Morphine, Oxycodone, and Vancomycin FAMILY HISTORY: Patient was adopted so he does not know his family history of addictions or medical history due to he has never known his biological family. SOCIAL HISTORY: Patient was adopted, states he had no interest in looking up his biological family. He was the only child adopted by his parents. He was growing up in [place], [place] and graduated high school. 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 He has 2 daughters with his . No legal history. No history. He was never a victim of crime. He reports no adverse childhood experiences. Growing up his hobbies were sports. He reports his top 3 stressors are finances, his bills and problem with my head, I think its delirium. Reports that his families are his supports. MENTAL STATUS EXAMINATION: Patient is a 64-year-old , domiciled, male. He appears his stated age, calm and cooperative in the interview. His hygiene and grooming is fair. Eye contact is fleeting. No observations of psychomotor retardation or agitation. Speech is normal rate, tone and volume although he is mildly monosyllabic. Language skills are intact. Thought processes are linear and goal oriented. Thought content, he reports mild depression, reporting some anxiety. Very guarded and distant, No suicidal or homicidal ideation, planning or intent. Denies any psychosis, is not observed with any manic or paranoia. No endorsement of auditory or visual hallucinations. Abstract reasoning and computation: Fair. Description of associations: None noted. Patient denies. Description of abnormal or psychotic thoughts: None noted. Patient denies. Insight and judgment: Fair. Orientation: Patient is alert and oriented to person, place, time and situation. Recent and remote memory: Intact. Attention span and concentration: Good. Language: Expansive. Fund of knowledge: Average. Mood: Depressed, mildly agitated. Affect: Flat. DIAGNOSES: * Unspecified depressive disorder. * Delirium due to stage 3 kidney disease. * Rule out unspecified psychotic disorder. TREATMENT PLAN: Patient admitted to Inpatient Mental Health on a 939. At this time we will start medications as appropriately needed. He can resume all of his home medications. ASSESSMENT: Patient appears to be mildly depressed with some anxiety. He reports mostly this depression and anxiety is due to being admitted to the hospital. I received collateral information from another psychiatrist who reported that his had contacted her and patient has had a recent change in mental status in that he is more paranoid, very agitated, speaks to her as if he does not recognize her and she feels that he needs to be admitted for his safety. She had reported him having agitation to the point that he threw a glass, but not in her direction, she was not injured. Patient does have a score of 30/30 on the admitting Mental Status Exam showing that he does not have any cognitive deficits. We will continue to observe patient and discharge when he is stable. ROQUE
--- NOTE | 2020-04-27 15:29 | IPNPDOC ---
Text Note Date of Service The patient was seen on 04/27/20. NOTE Subjective: Patient was seen and examined this morning. Nurse asked me to re evaluate the patient due to single episode of fever at 100.7. Patient tells me he does not feel feverish does not have chills no cough no shortness of breath no chest pain no nausea or vomiting. Does not feel any different from yesterday. Denies pain on urination. Tells me he was sleeping when the temperature was checked and he was covered in blankets and feeling comfortable Objective Constitutional: Awake and alert, in no apparent distress. Flat affect but more positive engaging than yesterday ENT: Sclera are clear. Mucosa is moist. Respiratory: Lungs CTA bilaterally. No respiratory distress. No use of accessory muscles. Cardiovascular: RRR S1 and S2 are normal, no murmur Gastrointestinal: Abdomen is soft, non tender, BS present. Musculoskeletal: No edema. Neurologic: No focal neurological deficit. Mental Status: A&O x3, normal affect Skin: Ecchymosis on arms and old fistula on right arm LABORATORY DATA: See below. MICROBIOLOGY: Please see below. 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 Admitted to psychiatric unit because he can't control his thoughts. I was asked to provide a medical evaluation. # Single episode fever: I doubt this fever was real as it was temporal low-grade and happened while patient was covered in blankets in the morning. I recommended only checking oral temperatures moving forward and continuing to monitor. There is no clinical signs of infection. I ordered a respiratory viral panel. Urinalysis from admission was okay. His x-ray from admission showing some atelectasis versus small bilateral pleural effusions. # History of kidney transplant with CKD stage III at baseline: Continue home immunosuppressive meds # Hypertension: Continue home meds amlodipine, Coreg # CAD status post stents: Continue aspirin and statin, Coreg # Hyper uricemia: Continue allopurinol A Yousef Hospitalist Ashley CARLSON, I+O VSAshley, I+O Laboratory Tests 04/27/20 10:04 Vital Signs Date Time Temp Pulse Resp B/P (MAP) Pulse Ox O2 Delivery O2 Flow Rate FiO2 04/27/20 14:00 99.7 04/27/20 10:00 Room Air 04/27/20 09:58 72 138/70 04/27/20 07:59 18 96 HEYDI WOMACK MD Apr 27, 2020 15:29
--- NOTE | 2020-04-27 16:48 | MHIPNPDOC ---
[facility] Progress Note Progress Note DATE OF SERVICE: 04/27/20 HISTORY: Patient is a 64 year old , Retired, Domiciled, Male who was brought to the ED for increased aggression, agitation, auditory hallucinations and paranoia. Patient's had him sent to the ED on a 9.45 legal status. According to his , this has been a sudden onset but but this has been going on since February. Per his Charis Leonard who was interviewed via phone today. Patient will not open up to anyone. He does not like a lot of people and is having auditory and visual hallucinations. He hears voices and sees visions yells, "Stop it, get out of my head! I am not talking to you" and he has stated multiple times to his "I don't think you are my ." Patient and his have been 44 years and have been together for nearly 50 years and they were high school sweethearts. He attempted several times to walk out of their home, stating "This is not my house" ON 03/04/20 patient had been on Klonopin for several months and discontinued on this and started on Paxil. He had 4 doses fo Paxil and was experiencing withdrawal from the Klonopin and had extreme mental status change after starting the Paxil. He was burning paper and throwing things into their pool, she states she had to have her grown children come down to help her with him as he was so acutely psychotic. He was sent to the ED and was alert and oriented while there and discharged. Paxil was d/c'd. Once he got home, he had resumed behaviors of crawling on his hands and knees on the floor. He crawled around with a blanket on his head. She reports that he was bizarre. He has a congenital kidney issue and learned about it when he was 17 years old. Has been immunocompromised since 1992 when he had his first kidney transplant. 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 states that he recently stopped seeing his MD who he has seen for years and he is seeing Dr. Grace who had prescribed him Seroquel 12.5 mg AM and Seroquel 50 mg HS. This was restarted today, as well as, Dr. Grace recommends a low dose of Zoloft 25 mg. "This is possibly chronic Delirium." also reports that he was very depressed after the of his mother in August 2019. He had been estranged from her after the of his father in 1994. Patient was adopted and he had a diagnosis of Polio, at 17 years old he learned he had nephropathy. 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 He had an episode of Sepsis two years ago. VITAL SIGNS: See below. NEW TEST RESULTS: Patient has an elevated temperature today and was seen by Hospitalist. CURRENT MEDICATIONS: See below. MENTAL STATUS EXAMINATION: Patient is a 64-year old male, who is , Retired, Domiciled, Male. He is appears his stated age. Stays close to his room, he was interviewed in that room, stating that he is very cold and wants to go home. Calm and cooperative in the interview but very withdrawn and guarded. Speech: Is normal rate, tone and low volume Language skills are intact Thought processes including: linear and goal oriented Thought content: admits to depression and anxiety because he is "here", denies suicidal/homicidal ideation, planning or intent. He is reporting that he is anxious, denies abnormal psychotic symptoms, denies a/v/t hallucinations Abstract reasoning, and computation: Fair Description of associations: None notes, patient denies Description of abnormal or psychotic thoughts: None notes, patient denies Judgment: fair Insight: fair Orientation: alert and oriented to persona, place, time and situation Recent and remote memory: intact Attention span and concentration: fair Language: expansive Fund of knowledge: good Mood: " I just want to go home Affect: constricted/withdrawn DIAGNOSES: Unspecified depressive disorder. * Delirium due to stage 3 kidney disease. * Rule out unspecified psychotic disorder. ASSESSMENT: Patient is withdrawn and guarded. He appears to be depressed but denies this. He repeatedly asks, "why can't I go home? Please let me go home" MANAGEMENT PLAN: Continued medications as prescribed. Patient's hospitalization will be reevaluated tomorrow. TIME SPENT: 25 minutes. Vital Signs Vital Signs Date Time Temp Pulse Resp B/P (MAP) Pulse Ox O2 Delivery O2 Flow Rate FiO2 04/27/20 14:00 99.7 04/27/20 10:00 Room Air 04/27/20 09:58 72 138/70 04/27/20 07:59 18 96 Laboratory Data 24H Labs Laboratory Tests 2 04/27/20 10:04: Immature Granulocyte % (Auto) 0.7, Neutrophils (%) (Auto) 58.4, Lymphocytes (%) (Auto) 27.7, Monocytes (%) (Auto) 11.7H, Eosinophils (%) (Auto) 1.0, Basophils (%) (Auto) 0.5, Neutrophils # (Auto) 2.3, Lymphocytes # (Auto) 1.1L, Monocytes # (Auto) 0.5, Eosinophils # (Auto) 0.0, Basophils # (Auto) 0.0, Nucleated Red Blood Cells % (auto) 0.0, Immature Platelet Fraction 1.6, Anion Gap 8, Glomerular Filtration Rate 36.1L, Calcium Level 9.2, Phosphorus Level 2.5, Total Bilirubin 0.6, Direct Bilirubin 0.2, Aspartate Amino Transf (AST/SGOT) 34, Alanine Aminotransferase (ALT/SGPT) 16, Alkaline Phosphatase 81, C-Reactive Protein, Quantitative 6.92H, Total Protein 5.2L, Albumin 2.4L, Albumin/Globulin Ratio 0.9 CBC/BMP Laboratory Tests 04/27/20 10:04 Current Medications Current Medications Medications (Trade) Dose Ordered Sig/Shanae Route PRN Reason Start Time Stop Time Status Last Admin Dose Admin Acetaminophen (Tylenol Tab) 650 mg Q6HP PRN PO HEADACHE or DISCOMFORT 04/26/20 01:00 Al Hydrox/Mg Hydrox/Simethicone (Mylanta) 30 ml Q4HP PRN PO HEARTBURN/INDIGESTION 04/26/20 01:00 Allopurinol (Zyloprim) 100 mg DAILY PO 04/26/20 09:00 04/26/20 21:06 Amlodipine Besylate (Norvasc) 10 mg QHS PO 04/26/20 21:00 04/26/20 21:07 Aspirin (Ecotrin) 81 mg DAILY PO 04/26/20 09:00 04/27/20 10:00 Atorvastatin Calcium (Lipitor) 40 mg QHS PO 04/26/20 21:00 04/26/20 21:08 Calcitriol (Rocaltrol) 0.5 mcg DAILY PO 04/26/20 12:00 04/27/20 09:57 Carvedilol (COReg) 12.5 mg BID PO 04/26/20 09:00 04/27/20 09:58 Ferrous Gluconate (Fergon) 324 mg DAILY PO 04/27/20 09:00 04/27/20 09:58 Home Med (Med Rec Complete!) ASDIRECTED XX 04/25/20 22:00 04/25/20 21:52 DC Magnesium Hydroxide (Milk Of Magnesia) 30 ml DAILYPRN PRN PO CONSTIPATION 04/26/20 01:00 Miscellaneous (Unresolved Patient Own Med Order) SEE LABEL COMMENTS DAILY XX 04/26/20 09:00 04/26/20 15:10 DC Non-Formulary Medication 2 ea DAILY PO 04/26/20 11:30 04/26/20 12:00 DC Non-Formulary Medication 180 ea BID PO 04/26/20 21:00 04/26/20 12:00 DC Olanzapine (ZyPREXA ZYDIS) 5 mg Q4HP PRN PO AGITATION 04/26/20 01:00 Omeprazole (PriLOSEC) 20 mg DAILY PO 04/26/20 09:00 04/27/20 10:00 Patient Own Medication (Patient'S Own Med) 1 TAB (180 MG) BID PO 04/26/20 21:00 04/27/20 09:55 Prednisone (Deltasone) 5 mg DAILY PO 04/26/20 11:30 04/27/20 09:59 Quetiapine Fumarate (SEROquel) 12.5 mg QAM PO 04/27/20 09:00 04/27/20 12:53 Quetiapine Fumarate (SEROquel) 50 mg QHS PO 04/27/20 21:00 Sirolimus (Rapamune) 2 mg DAILY PO 04/26/20 14:00 04/27/20 09:59 Trazodone HCl (Desyrel) 50 mg QHSP PRN PO INSOMNIA 10/21/20 01:00 Ursodiol (Actigall) 300 mg BID PO 04/26/20 09:00 04/27/20 09:59 Ursodiol (Actigall) 300 mg DAILY PO 04/26/20 09:00 04/26/20 02:10 DC Allergies Coded Allergies: codeine (Verified Adverse Reaction, Mild, N/V, 03/31/19) meperidine (Verified Adverse Reaction, Mild, N/V, 03/31/19) morphine (Verified Adverse Reaction, Mild, N/V, 03/31/19) HAS TAKEN MORPHINE WITH ZOFRAN AND TOLERATED WELL oxycodone (Verified Adverse Reaction, Mild, N/V, 03/31/19) uses zofran prior to admin vancomycin (Verified Adverse Reaction, Mild, confusion, 03/31/19) FRANCIS FLOYD NP Apr 27, 2020 16:16
[2020-04-27 19:13] VITALS: BP 142/70
[2020-04-27] MEDS: ATORVASTATIN 20 MG TAB PO SCH (20:57)
[2020-04-27] MEDS: amLODIPine 5 MG TAB PO SCH (20:58)
[2020-04-27] MEDS ORDERED: QUEtiapine FUMARATE 50 MG TAB PO SCH (21:00)
[2020-04-28] MEDS ORDERED: SERTRALINE HCL 25 MG TABLET PO SCH (09:00)
[2020-04-28] MEDS: QUEtiapine FUMARATE 12.5 MG HALF-TAB PO SCH (09:31)
[2020-04-28] MEDS: allopurinoL 100 MG TAB PO SCH (09:32)
[2020-04-28] MEDS: MYCOPHENOLIC ACID 180 MG PO SCH (09:32)
[2020-04-28 09:33] VITALS: BP 128/72
[2020-04-28] MEDS: FERROUS GLUCONATE 324 MG TAB PO SCH (09:33)
[2020-04-28] MEDS: CARVedilol 12.5 MG TAB PO SCH (09:33)
[2020-04-28] MEDS: predniSONE 5 MG TAB PO SCH (09:33)
[2020-04-28] MEDS: CALCITRIOL 0.25 MCG CAP (S0169) PO SCH (09:33)
[2020-04-28] MEDS: SIROLIMUS 1 MG TAB (RAPAMUNE) PO SCH (09:34)
[2020-04-28] MEDS: ursodioL 300 MG CAP PO SCH (09:34)
[2020-04-28] MEDS: OMEPRAZOLE 20 MG CAP PO SCH (09:35)
[2020-04-28] MEDS: ASPIRIN 81 MG ENTERIC TAB PO SCH (09:35)
[2020-04-28] MEDS ORDERED: SERT25TA21 PO (09:38)
[2020-04-28] MEDS ORDERED: QUET1TAB7 PO (09:38)
[2020-04-28 11:08] LABS: ALBUMIN 2.6 GM/DL (3.2-5.2); BILIRUBIN,TOTAL 0.6 MG/DL (0.2-1.0); CALCIUM LEVEL 9.6 MG/DL (8.8-10.2); CREATININE FOR GFR 1.94 MG/DL (0.70-1.30); GLOMERULAR FILTRATION RATE 37.2 (>49); POTASSIUM SERUM 3.6 MEQ/L (3.5-5.1); TOTAL PROTEIN 5.7 GM/DL (6.4-8.2)
--- NOTE | 2020-04-28 12:42 | IPN ---
DATE: 04/27/2020 SUBJECTIVE: Patient was seen and examined today morning in the inpatient mental health unit. He had a fever spike with a temperature of 100.7 degrees Fahrenheit last night. When I saw the patient, he denied any fevers or chills. He denies any cough with phlegm, dysuria, hematuria, abdominal pain, nausea or vomiting. OBJECTIVE: VITAL SIGNS: Temperature 99.5 degrees Fahrenheit, T-max 100.7 degrees Fahrenheit, blood pressure 142/70, pulse 68, respiratory rate 16, saturating 96% on room air. INTAKE AND OUTPUT: There is no urine output recorded. Weight in the bed scale was 68.8 kg yesterday. PHYSICAL EXAMINATION: GENERAL: Patient is awake, alert and oriented x3, sitting up in the chair, in no apparent distress. HEAD AND NECK: Extraocular muscles intact. Pupils equally round and reactive to light. Mucous membranes are moist. Neck is supple. There is no JVD. CARDIOVASCULAR: S1, S2, regular rate. Trace edema of the bilateral lower extremities. RESPIRATORY: Mildly decreased breath sounds at the bases, otherwise no active rales or rhonchi. ABDOMEN: Soft, positive bowel sounds, mild tenderness to deep palpation in the epigastrium. Renal allograft in the left lower quadrant is nontender. MUSCULOSKELETAL: No clubbing or cyanosis. Pulses are 2+. FACING SLITTER: No focal deficit. Power is 5/5 in all extremities. LABORATORY REVIEW: CBC showed WBC 4, hemoglobin 9.1, platelets 96,000. BMP showed sodium 138, potassium 3.9, chloride 103, bicarb 27, BUN 25, creatinine 1.9, glucose 92. Phosphorus 2.5. Albumin 2.4. Procalcitonin level 0.16. MICROBIOLOGY: Respiratory viral panel was done today, which was negative. CURRENT INPATIENT MEDICATIONS: The patients medications were all reviewed by myself. He was started on ferrous gluconate 324 mg p.o. daily. No other significant change in the medications today as compared with yesterday. ASSESSMENT AND PLAN: 1. Renal allograft status: Renal function is stable and close to baseline. Continue current dose of Sirolimus, Myfortic and prednisone. 2. Chronic kidney disease stage 3: Patient's renal function is close to baseline. Continue current medications. 3. Fever spike with elevated C-reactive protein: Patient's Pro-Calcitonin is negative. Respiratory viral panel is negative. Cultures so far are negative. He does have history of cholangitis; status post cholecystectomy and history of stent placement in the CBD. If patient has chills, rigors and fevers again, then we have to rule out possibility of ascending cholangitis. In that case, he might need to be transferred to the medical surgical unit. 4. Iron deficiency anemia: Continue oral iron. I am reluctant to give I.V. iron to this patient with recent fever spike. 5. Hypertension: Blood pressure is controlled with current dose of Amlodipine and Coreg. 6. Secondary hyperparathyroidism: Continue current dose of Calcitriol. PTH level is within the acceptable range. MTDD
--- NOTE | 2020-04-28 14:35 | MHDSPDOC ---
[facility] Discharge Summary Discharge Summary DATE OF ADMISSION: Apr 26, 2020 at 00:49 DATE OF DISCHARGE: April 28, 2020 1401 DISCHARGE DIAGNOSES: 1. Unspecified depressive disorder. 2. Delirium due to Medical Condition (Stage 3 kidney disease) 3. unspecified psychotic disorder. REASON FOR ADMISSION: Patient is a 64 year old , Retired, Domiciled, Male who was brought to the ED for increased aggression, agitation, auditory hallucinations and paranoia. Patient's had him sent to the ED on a 9.45 legal status. According to his , this has been a sudden onset but this has been going on since February. CONSULTANTS INVOLVED: Please see consultations, H + P by medical providers TREATMENT AND PROGRESS ON THE UNIT : Patient was admitted to the [facility] on a 9.39 legal status he was afforded the following treatment modalities: 1) Individual Therapy 2) Group Therapy 3) Medication Management 4) Milieu Therapy 5) Safe Environment HOSPITAL COURSE: Patient was admitted to Inpatient Mental Health on a 9.39 legal status and in his initial interview had reported no depression, no anxiety, was irritable and mildly angry that he was admitted. He denies that he is d epressed. He admits to having agitated and being abrasive with his , stating "I have been 44 years, and I am miserable sometimes. I did throw a glass, but it wasn't at her." Patient scored 30/30 on Mini Mental Status Exam on initial interview. I have spoken to his Charis several times between yesterday and today and I have reinforced with her that at this time, he does not meet criteria for involuntary admission or extensions due to having a normal mental status exam. He exhibits fair insight into the situation. He is not observed with any risk factors that make for the argument of continued stay. I have not observed and the staff has not observed concerning behaviors that warrant further evaluations. I am unable to make a case for holding the patient against his will,. The patient does however have significant medical conditions that may be contributing to his intermittent altered mental status. He is s/p kidney transplant x 2, stage 3 kidney disease, patient has a cardiac history and many medications. He is also immunocompromised. His , Charis, in one c onversation reported that patient had 2 MRIs this summer where the doctor had told her "his brain is deteriorating." These are risk factors, however, these are not modifiable from a psychiatric clinical perspective. I have spoken to his today who asked that his creatinine level be checked. She is aware of these results. I have spoken to the hospitalist who is not concerned about the elevated GFR. The creatinine and BUN has decreased, but not significantly. stated that she was going to call patient's service line coordinator. I reinforced with the that from a psychiatric standpoint, he is being discharged as I have no indications/behaviors to warrant further treatment. I reviewed with Charis the medications that were restarted and new medications of Zoloft 25 mg for depression and Seroquel 25 mg BID PRN for anxiety/or agitation. I reviewed medications, indications, dosages, route, times and frequency. She verbalized understanding. At the end of our conversation, was insisting that I call the hospitalist and/or service line coordinator. I have documented my conversation with the hospitalist above. insisted that she was calling the service line coordinator which I encouraged her to do. I did recommended that to her if patient has any exacerbations, decline or change in mental status to call 911. DISCHARGE ASSESSMENT: Patient appears depressed, flat affected but he denies depression states "this look of depression is because I am here." When I explained that I was discharging him, patient was relieved and thanked me. I reviewed with him the discharge medications and reinforced need to follow up with providers. Attempted several times to address need for talk therapy, he declined. Patient is alert and oriented x 4 and I asked him several questions to ascertain his memory, cognitive functioning and orientation. Patient has no deficits in orientation, memory or cognition. MENTAL STATUS EXAMINATION ON DISCHARGE: Patient is a 64 year old , Retired, Domiciled, Male who was brought to the ED for increased aggression, agitation, auditory hallucinations and paranoia. Patient is disheveled, his hygiene and grooming is fair. His eye contact is minimal. He has slow psychomotor movement. Speech: Is normal rate, tone and volume. Speaks minimally Language skills are good Thought processes including: linear and goal-oriented Thought content: Denies depression and anxiety but he appears to be depression. Denies paranoia, obsessions, racing thoughts, nigel or hallucinations Abstract reasoning, and computation: good. Description of associations: none noted Description of abnormal or psychotic thoughts: none noted Judgment: fair Insight: fair Orientation: alert and oriented Recent and remote memory: intact Attention span and concentration: good Language: expansive Fund of knowledge: average Mood: depressed and anxious Affect: congruent with mood MEDICATIONS ON DISCHARGE: All home meds were continued. Seroquel 25 mg BID PRN daily for anxiety/agitation and Zoloft 25 mg daily were electronically prescribed to [facility] PLAN/FOLLOWUP ARRANGEMENTS: Patient has a future appointment with Dr. Grace but refused to sign ROIs The amount of time spent in the coordination of care for this patient was appr oximately 90 minutes. Vital Signs/I&Os Vital Signs Date Time Temp Pulse Resp B/P (MAP) Pulse Ox O2 Delivery O2 Flow Rate FiO2 04/28/20 09:33 84 128/72 04/27/20 19:13 99.5 16 Room Air 04/27/20 07:59 96 Laboratory Data Labs 24H Laboratory Tests 2 04/28/20 10:25: Anion Gap 8, Glomerular Filtration Rate 37.2L, Calcium Level 9.6, Total Bilirubin 0.6, Aspartate Amino Transf (AST/SGOT) 38H, Alanine Aminotransferase (ALT/SGPT) 21, Alkaline Phosphatase 88, Total Protein 5.7L, Albumin 2.6L, Albumin/Globulin Ratio 0.8 CBC/BMP Laboratory Tests 04/28/20 10:25 Microbiology Microbiology 04/27/20 Respiratory Virus Panel (PCR) ([facility]) - Final, Complete 04/25/20 Blood Culture - Preliminary, Resulted No Growth after 72 hours. All specime... Medications Scheduled Allopurinol (Allopurinol) 100 Mg Tablet, 100 MG PO DAILY, (Reported) Amlodipine Besylate (Amlodipine Besylate) 5 Mg Tablet, 10 MG PO QHS, (Reported) Aspirin (Aspirin EC) 81 Mg Tablet.dr, 81 MG PO DAILY, (Reported) Atorvastatin Calcium (Atorvastatin Calcium) 40 Mg Tablet, 40 MG PO QHS, (Reported) Calcitriol (Rocaltrol) 0.5 Mcg Capsule, 0.5 MCG PO DAILY, (Reported) Carvedilol (Carvedilol) 12.5 Mg Tab, 12.5 MG PO BID, (Reported) Cholecalciferol (Vitamin D3) (Vitamin D3) 1,000 Unit Tablet, 2,000 UNITS PO DAILY, (Reported) Magnesium Oxide (Magnesium Oxide) 500 Mg Capsule, 1,000 MG PO BID, (Reported) Melatonin (Melatonin) 5 Mg Tablet, 5 MG PO QHS, (Reported) Mycophenolate Sodium (Myfortic) 180 Mg Tablet.dr, 180 MG PO BID, (Reported) Omeprazole (Omeprazole) 20 Mg Capsule.dr, 20 MG PO DAILY, (Reported) Prednisone (Prednisone) 5 Mg Tablet, 5 MG PO DAILY, (Reported) Quetiapine Fumarate (Quetiapine Fumarate) 25 Mg Tablet, 12.5 MG PO DAILY, (Reported) Quetiapine Fumarate (Quetiapine Fumarate) 50 Mg Tablet, 50 MG PO QHS, (Reported) Sertraline HCl (Sertraline HCl) 25 Mg Tablet, 25 MG PO QAM for Depression, #7 Sirolimus (Sirolimus) 1 Mg Tablet, 2 MG PO DAILY, (Reported) Ursodiol (Ursodiol) 300 Mg Capsule, 300 MG PO BID, (Reported) Scheduled PRN Nitroglycerin (Nitrostat) 0.4 Mg Subl, 0.4 MG SL NITRO PRN for CHEST PAIN, (Reported) Quetiapine Fumarate (Quetiapine Fumarate) 25 Mg Tablet, 25 MG PO BIDP PRN for ANXIETY/AGITATION, #14 Temazepam (Temazepam) 7.5 Mg Capsule, 7.5 MG PO QHS PRN for INSOMNIA, (Reported) Allergies Coded Allergies: codeine (Verified Adverse Reaction, Mild, N/V, 03/31/19) meperidine (Verified Adverse Reaction, Mild, N/V, 03/31/19) morphine (Verified Adverse Reaction, Mild, N/V, 03/31/19) HAS TAKEN MORPHINE WITH ZOFRAN AND TOLERATED WELL oxycodone (Verified Adverse Reaction, Mild, N/V, 03/31/19) uses zofran prior to admin vancomycin (Verified Adverse Reaction, Mild, confusion, 03/31/19) FRANCIS FLOYD NP Apr 28, 2020 14:35
== END 2020-04-28 15:30 | disposition home or self-care (01) | DRG 881 ==
LOC: M ED 11:31 → M ED INP 04-26 00:49 → M PSY 04-26 01:58
PROVIDERS: ADMIT Psychiatry & Neurology Psychiatry; ATTEND Psychiatry & Neurology Psychiatry
DX: F32.9 Major depressive disorder, single episode, unspecified (principal); Z94.0 Kidney transplant status; N25.81 Secondary hyperparathyroidism of renal origin; R41.0 Disorientation, unspecified; N18.30 Chronic kidney disease, stage 3 unspecified; I12.9 Hypertensive chronic kidney disease with stage 1 through stage 4 chronic kidney disease, or unspecified chronic kidney disease; I25.10 Atherosclerotic heart disease of native coronary artery without angina pectoris; I25.2 Old myocardial infarction; Z95.5 Presence of coronary angioplasty implant and graft; F41.9 Anxiety disorder, unspecified; Z96.642 Presence of left artificial hip joint; Z79.52 Long term (current) use of systemic steroids; Z79.82 Long term (current) use of aspirin; Z79.899 Other long term (current) drug therapy; Z88.1 Allergy status to other antibiotic agents; Z88.5 Allergy status to narcotic agent; Z88.8 Allergy status to other drugs, medicaments and biological substances; D50.9 Iron deficiency anemia, unspecified; M10.30 Gout due to renal impairment, unspecified site; Z20.828 Contact with and (suspected) exposure to other viral communicable diseases

== ENCOUNTER → 2020-05-11 | Outpatient (REF) | payer MEDICARE, BC ==
[~2020-05-11] MED LIST changes: +ALLO100T PO; +ASPI-161 PO; +CVS5CHW2 PO; +MELA1TAB9 PO; +QUET5TAB PO; +SERT25TA21 PO; +TEMA7.5C PO
[2020-05-11 18:18] LABS: PERCENT SATURATION 12.3 % (19.7-50.0)
== END ==
LOC: M LAB REF 16:51
PROVIDERS: ATTEND Internal Medicine Nephrology
DX: D50.9 Iron deficiency anemia, unspecified (principal)

== ENCOUNTER 2020-05-12 12:16 | Outpatient (CLI) | payer MEDICARE, BC ==
[2020-05-12] VITALS (8 sets, daily range): BP systolic 125–147; BP diastolic 64–74
== END 2020-05-12 17:00 | disposition home or self-care (01) ==
LOC: M INFU 12:16
PROVIDERS: ATTEND Internal Medicine Nephrology
DX: D64.9 Anemia, unspecified (principal); Z88.1 Allergy status to other antibiotic agents; Z88.6 Allergy status to analgesic agent; Z88.8 Allergy status to other drugs, medicaments and biological substances
CPT/HCPCS: 36430; P9016

== ENCOUNTER → 2020-06-06 | Outpatient (REF) | payer MEDICARE, BC | LOC: M LAB REF 17:07 | PROVIDERS: ATTEND Internal Medicine Nephrology | DX: Z94.0 Kidney transplant status (principal) ==

== ENCOUNTER 2020-06-13 13:15 | Outpatient (CLI) | payer MEDICARE, BC ==
[~2020-06-13] VITALS: Ht 170.2 cm; Wt 71.4 kg
[~2020-06-13 13:15] MED LIST changes: +ALBUTEROL SULFATE 2.5 MG/0.5 ML INH NEB SOLN INH PRN; +EPINEPHrine INJ 1 MG/ML 1ML AMP IM PRN; +diphenhydrAMINE 50MG/ML VIAL (J1200) IV PRN; +methylPREDNISolone 125MG 2ML VIAL IV PRN
[2020-06-13 13:25] VITALS: BP 113/63
[2020-06-13] MEDS ORDERED: NS 1,000 ML IV SCH (13:30)
[2020-06-13] MEDS ORDERED: FERRIC CARBOXYMALTOSE INJ 750 MG in NS 250 ML IV ONE (13:30)
[2020-06-13 15:30] VITALS: BP 128/66
== END 2020-06-13 15:30 | disposition home or self-care (01) ==
LOC: M INFU 13:15
PROVIDERS: ATTEND Internal Medicine Nephrology
DX: D50.9 Iron deficiency anemia, unspecified (principal); Z88.1 Allergy status to other antibiotic agents; Z88.6 Allergy status to analgesic agent; Z88.8 Allergy status to other drugs, medicaments and biological substances
CPT/HCPCS: 96365; J1439

== ENCOUNTER → 2020-08-10 | Outpatient (REF) | payer MEDICARE, BC ==
[~2020-08-10] MED LIST changes: -ALBUTEROL SULFATE 2.5 MG/0.5 ML INH NEB SOLN INH PRN; -EPINEPHrine INJ 1 MG/ML 1ML AMP IM PRN; -MAG400TA PO; +MAGN400T35 PO; -QUET1TAB7 PO; +QUET25TA3 PO; +QUET50TA3 PO; -QUET5TAB PO; +SIME80CH5 PO; -SIME80TA PO; -diphenhydrAMINE 50MG/ML VIAL (J1200) IV PRN; -methylPREDNISolone 125MG 2ML VIAL IV PRN
[2020-08-10 18:01] LABS: PERCENT SATURATION 31.1 % (19.7-50.0)
== END ==
LOC: M LAB REF 16:59
PROVIDERS: ATTEND Nurse Practitioner Family
DX: Z94.0 Kidney transplant status (principal); D50.9 Iron deficiency anemia, unspecified

== ENCOUNTER 2020-09-16 10:27 | Inpatient (IN) | payer MEDICARE, BC ==
[~2020-09-16] VITALS: Ht 170.2 cm; Wt 69.9 kg
[~2020-09-16 10:27] MED LIST changes: +ASPI-569 PO; -ASPI81TAEC PO
[2020-09-16] MEDS ORDERED: TACR0.5C3 PO (10:41)
[2020-09-16] MEDS ORDERED: BENA25CA4 PO (10:41)
[2020-09-16] MEDS ORDERED: FURO20TA2 PO (10:41)
--- NOTE | 2020-09-16 11:20 | REP ---
INDICATION: Altered Mental Status COMPARISON: 04/25/2020 TECHNIQUE: Portable AP view of the chest FINDINGS: The mediastinum and cardiac silhouette are stable and within normal limits for portable technique. The lung cadena are clear without acute consolidation, effusion, or pneumothorax. Skeletal structures are intact. IMPRESSION: Chronic stable changes. No focal consolidation or effusion. <Electronically signed by Eder Rojas > 09/16/20 1110
[2020-09-16 11:33] LABS: VENOUS BASE EXCESS 1.5 (-2.0-2.0); VENOUS HCO3 26.3 MEQ/L (23.0-27.0); VENOUS O2 SATURATION 63.3 % (60.0-80.0); VENOUS PARTIAL PRESSURE CO2 42.5 mmHg (38.0-50.0); VENOUS PARTIAL PRESSURE O2 32.5 mmHg (30.0-50.0); VENOUS TOTAL CO2 27.6 MEQ/L (24.0-28.0)
--- NOTE | 2020-09-16 11:33 | REP ---
INDICATION: Altered Mental Status COMPARISON: None. TECHNIQUE: Axial noncontrast images from the skull base to the thoracic inlet with coronal reformations. This CT examination was performed using the following dose reduction techniques: Automated exposure control, adjustment of mA and/or kv according to the patient's size, and use of iterative reconstruction technique. FINDINGS: Age-related atrophy with periventricular leukomalacia and microvascular ischemic changes are appreciated. The ventricles and sulci are symmetric. Pappas-white differentiation is maintained. There is no evidence for acute intracranial hemorrhage, mass/mass effect, pathology or infarction. No extra-axial fluid collection. Calvarium is intact. Paranasal sinuses and mastoid air cells are clear. IMPRESSION: Atrophy and microvascular ischemic changes. No acute intracranial hemorrhage, infarction, or mass/mass effect. <Electronically signed by Eder Rojas > 09/16/20 1126
[2020-09-16 11:39] LABS: BASO % 0.4 % (0.0-1.0); EOS # 0.2 10^3/uL (0.0-0.5); EOS % 2.4 % (0.0-3.0); HEMATOCRIT 40.2 % (42.0-52.0); HEMOGLOBIN 13.1 g/dl (13.5-17.5); LYMPH # 0.9 10^3/uL (1.5-5.0); LYMPH % 11.2 % (24.0-44.0); MEAN CORPUSCULAR HEMOGLOBIN 29.5 pg (27.0-33.0); MEAN CORPUSCULAR HGB CONC 32.6 g/dl (32.0-36.5); MEAN CORPUSCULAR VOLUME 90.5 fl (80.0-96.0); MONO # 0.5 10^3/uL (0.0-0.8); MONO % 5.9 % (2.0-8.0); NEUTROPHILS # 6.6 10^3/uL (1.5-8.5); NEUTROPHILS % 79.4 % (36.0-66.0); PLATELET COUNT, AUTOMATED 124 10^3/uL (150-450); RED BLOOD COUNT 4.44 10^6/uL (4.30-6.10); WHITE BLOOD COUNT 8.3 10^3/uL (4.0-10.0)
[2020-09-16 12:02] LABS: OSMOLALITY SERUM 299 MOSM/KG (280-301)
[2020-09-16 12:15] LABS: ACETAMINOPHEN LEVEL < 2.0 UG/ML (10.0-30.0); ALT/SGPT 21 U/L (12-78); BILIRUBIN,DIRECT 0.2 MG/DL (0.0-0.2); BILIRUBIN,TOTAL 0.8 MG/DL (0.2-1.0); BLOOD UREA NITROGEN 36 MG/DL (7-18); CALCIUM LEVEL 9.4 MG/DL (8.8-10.2); CARBON DIOXIDE LEVEL 29 MEQ/L (21-32); CHLORIDE LEVEL 104 MEQ/L (98-107); CK-MB VALUE MASS < 1.0 NG/ML (<3.6); CPK CREATINE PHOSPHOKINASE 56 U/L (39-308); CREATININE FOR GFR 2.91 MG/DL (0.70-1.30); ETHYL ALCOHOL (ETHANOL) < 0.003 % (0.000-0.010); GLOMERULAR FILTRATION RATE 23.3 (>49); GLUCOSE, FASTING 101 MG/DL (70-100); MB/CK RELATIVE INDEX 1.79 (< OR =4); POTASSIUM SERUM 3.8 MEQ/L (3.5-5.1); SALICYLATE LEVEL < 1.7 MG/DL (5.0-30.0); SODIUM LEVEL 139 MEQ/L (136-145); TOTAL PROTEIN 7.1 GM/DL (6.4-8.2); TROPONIN I < 0.02 NG/ML (< 0.10)
[2020-09-16] MEDS ORDERED: ZOLO100T PO (12:16)
[2020-09-16] MEDS ORDERED: SPIR-10 PO (12:16)
[2020-09-16] MEDS ORDERED: TEMA15CA2 PO (12:16)
--- NOTE | 2020-09-16 12:21 | REP ---
INDICATION: abdominal pain with altered mental status COMPARISON: 05/19/2020 TECHNIQUE: Axial noncontrast images from the lung bases to the pubic symphysis with coronal and sagittal reformations. This CT examination was performed using the following dose reduction techniques: Automated exposure control, adjustment of mA and/or kv according to the patient's size, and use of iterative reconstruction technique. FINDINGS: Liver, spleen, pancreas, and bilateral adrenal glands are normal. [place] kidneys are atrophic and partially calcified. Transplant kidney in the left hemipelvis is stable in appearance again demonstrating mild hydronephrosis and large lower pole cyst measuring approximately 7.7 cm diameter. No acute perinephric stranding. The enteric system is unremarkable and without obstruction or acute inflammatory process. Normal terminal ileum and appendix identified in the right lower quadrant. Diverticulosis noted without acute diverticulitis. Pelvis demonstrates mildly distended bladder with small stable left-sided diverticulum similar to prior examination. Transplant kidney in the left hemipelvis as described above. Normal prostate gland and seminal vesicles. Small fat containing right inguinal hernia noted.. No ascites. No free air. No adenopathy. No focal inflammatory stranding. Atherosclerotic changes to the aorta and vasculature without aneurysm. Musculoskeletal structures are intact and without acute osseous abnormality. IMPRESSION: No acute abdominopelvic pathology appreciated. Chronic stable changes as described above. No ascites, focal inflammatory stranding, adenopathy, or free air. <Electronically signed by Eder Rojas > 09/16/20 [id number]
[2020-09-16 12:38] LABS: MAGNESIUM LEVEL 3.3 MG/DL (1.8-2.4)
--- NOTE | 2020-09-16 13:06 | ECGEPIP ---
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
[2020-09-16 13:18] LABS: AMPHETAMINES LEVEL URINE NEGATIVE (NEGATIVE); BARBITURATES URINE NEGATIVE (NEGATIVE); BENZODIAZEPINES URINE POSITIVE (NEGATIVE); CANNABINOIDS URINE NEGATIVE (NEGATIVE); COCAINE METABOLITE URINE NEGATIVE (NEGATIVE); METHADONE URINE NEGATIVE (NEGATIVE); OPIATES URINE NEGATIVE (NEGATIVE); PHENCYCLIDINE URINE NEGATIVE (NEGATIVE)
[2020-09-16 13:42] LABS: RSV AMPLIFICATION NEGATIVE (NEGATIVE)
[2020-09-16] MEDS ORDERED: NS 1,000 ML IV ONE (13:55)
[2020-09-16] MEDS: MYFORTIC 180 MG PO SCH (21:42)
[2020-09-16] MEDS: TACROLIMUS 0.5 MG CAP PO SCH (21:42)
[2020-09-16] MEDS: TEMAZEPAM 15 MG CAP PO SCH (21:42)
[2020-09-16] MEDS: TRIAMCINOLONE ACET 0.1% CREAM 80 GM TOP SCH (21:42)
[2020-09-16] MEDS: ATORVASTATIN 20 MG TAB PO SCH (21:42)
[2020-09-16] MEDS: amLODIPine 5 MG TAB PO SCH (21:43)
[2020-09-16] MEDS: QUEtiapine FUMARATE 50MG TAB PO SCH (21:43)
[2020-09-16] MEDS: CARVedilol 12.5 MG TAB PO SCH (21:43)
[2020-09-16 22:00] VITALS: BP 139/80
[2020-09-17 06:00] VITALS: BP 137/79
[2020-09-17 06:43] LABS: BASO % 0.5 % (0.0-1.0); EOS # 0.3 10^3/uL (0.0-0.5); EOS % 3.3 % (0.0-3.0); HEMOGLOBIN 11.3 g/dl (13.5-17.5); LYMPH # 1.6 10^3/uL (1.5-5.0); LYMPH % 20.9 % (24.0-44.0); MEAN CORPUSCULAR HEMOGLOBIN 29.7 pg (27.0-33.0); MEAN CORPUSCULAR HGB CONC 32.3 g/dl (32.0-36.5); MEAN CORPUSCULAR VOLUME 91.9 fl (80.0-96.0); MONO # 0.6 10^3/uL (0.0-0.8); NEUTROPHILS # 5.1 10^3/uL (1.5-8.5); NEUTROPHILS % 66.6 % (36.0-66.0); PLATELET COUNT, AUTOMATED 110 10^3/uL (150-450); RED BLOOD COUNT 3.81 10^6/uL (4.30-6.10); WHITE BLOOD COUNT 7.7 10^3/uL (4.0-10.0)
[2020-09-17 07:00] LABS: CALCIUM LEVEL 8.6 MG/DL (8.8-10.2); CREATININE FOR GFR 2.94 MG/DL (0.70-1.30)
--- NOTE | 2020-09-17 07:41 | HPEPDOC ---
General Date of Admission 09/16/20 Date of Service: Sep 16, 2020 Chief Complaint The patient is a 64-year-old male admitted with a reason for visit of Altered Mental Status. 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 As per patient received his second dose of the COVID vaccine 2 weeks ago . After that he started getting quieter, more withdrawn and it seemed like he was getting depressed. She also felt that he may be hearing the voices again. She discussed these changes with Dr Grace 2 weeks ago and changes were made to his medications. His Zoloft was increased from 50 mg to 100 mg his seroquel was increased in that he was started on morning dose of seroquel 12.5 in addition to the evening 50 mg and then it was increased to 25 mg last week. There was not much improvement in his metal state. He was becoming restless at night going up and down. So she spoke with Dr Grace again 2 days ago and was given temazepam 15 mg at bed time . He took 2 doses. Patient also had a rash after the vaccine and he had been scratching himself vigorously sometimes drawing blood. She discussed this with nephro yesterday and they recommended benadryl . He got about 3 doses of benadryl. He also has been having diarrhea about 3 to 4 times a day for past week . He has no appetite for the past 2 weeks where at baseline he is a good eater. Last night he opened the glas s window in the kitchen and tried to climb through it to get outside and he would not listen and would not be redirected to something else. He was not aggressive. Today patient just speaks one or 2 words. When i asked why he came to the hospital he said "Head hurts". He answered yes to COVID vaccine. When i asked how he slept last night he answered "Chair". explained that he sleeps in a chair. When i asked if he was having diarrhea he answered yes could not give any clarification. His answers are very delayed and slow. He does not make eye contact. He appears apathic. When asked t sit up he would not even try when i was helping him he was just letting his body go without any trying. He is being admitted for acute metabolic encephalopathy on his chronic psychiatric issues and likely underlying dementia. His labs suggested of AZUCENA on CKD. UA was clean, wbc was a little higher than ba seline from 4.5 to 8.0. CXR negative, CT abd without contrast no acute findings Home Medications Scheduled Allopurinol (Allopurinol) 100 Mg Tablet, 100 MG PO DAILY, (Reported) Amlodipine Besylate (Amlodipine Besylate) 5 Mg Tablet, 5 MG PO QHS, (Reported) Aspirin (Aspirin EC) 81 Mg Tablet.dr, 81 MG PO DAILY, (Reported) Atorvastatin Calcium (Atorvastatin Calcium) 40 Mg Tablet, 40 MG PO QHS, (Reported) Carvedilol (Carvedilol) 12.5 Mg Tab, 12.5 MG PO BID, (Reported) Cholecalciferol (Vitamin D3) (Vitamin D3) 1,000 Unit Tablet, 2,000 UNITS PO DAILY, (Reported) Furosemide (Furosemide) 20 Mg Tablet, 20 MG PO DAILY, (Reported) Magnesium Oxide (Magnesium Oxide) 500 Mg Capsule, 1,000 MG PO BID, (Reported) Melatonin (Melatonin) 5 Mg Tablet, 5 MG PO QHS, (Reported) Mycophenolate Sodium (Myfortic) 180 Mg Tablet.dr, 180 MG PO BID, (Reported) Omeprazole (Omeprazole) 20 Mg Capsule.dr, 20 MG PO DAILY, (Reported) Prednisone (Prednisone) 5 Mg Tablet, 5 MG PO DAILY, (Reported) Quetiapine Fumarate (Quetiapine Fumarate) 25 Mg Tablet, 25 MG PO DAILY, (Reported) Quetiapine Fumarate (Quetiapine Fumarate) 50 Mg Tablet, 50 MG PO QHS, (Reported) Sertraline Hcl (Zoloft) 100 Mg Tablet, 100 MG PO DAILY, (Reported) Tacrolimus (Tacrolimus) 0.5 Mg Capsule, 0.5 MG PO BID, (Reported) Temazepam (Temazepam) 15 Mg Capsule, 15 MG PO QHS, (Reported) Scheduled PRN Diphenhydramine HCl (Benadryl) 25 Mg Capsule, 25 MG PO Q6H PRN for ITCHING, (Reported) Nitroglycerin (Nitrostat) 0.4 Mg Subl, 0.4 MG SL NITRO PRN for CHEST PAIN, (Reported) Allergies Coded Allergies: codeine (Verified Adverse Reaction, Mild, N/V, 09/16/20) meperidine (Verified Adverse Reaction, Mild, N/V, 09/16/20) morphine (Verified Adverse Reaction, Mild, N/V, 09/16/20) HAS TAKEN MORPHINE WITH ZOFRAN AND TOLERATED WELL oxycodone (Verified Adverse Reaction, Mild, N/V, 09/16/20) uses zofran prior to admin vancomycin (Verified Adverse Reaction, Mild, confusion, 09/16/20) Past Medical History Medical History Congenital kidney disease with ESRD status post Renal transplant 2 Hypertension. History of Sarcoidosis CKD Stage 3 baseline creatinine of 1.6 to 1.8 CAD and FL s/p stents placement Secondary hyperparathyroidism Anxiety Unspecified Psychotic disorder unspecified depressive disorder likely underlying Dementia. Chronic Delirium in 2019 after hospitalization. Cholangitis, choledocholithiasis, for which he underwent stone removal and main bile duct dilatation and biliary tree sweep in mar 2020. Surgical History Kidney transplant 2. Removal first transplanted kidney due to infection removal of inupiat kidneys due to infection PD catheter placement and removal Fistula creation. Left shoulder repair. Cardiac stent placement. Cholecystectomy Multiple ERCPs Family History patient is adapted. Social History * Smoker: Denies Alcohol: Denies Drugs: denies A-FIB/CHADSVASC A-FIB History Current/History of A-Fib/PAF?: No Review of Systems Constitutional: Reports: Other (poor appetite); Denies: Chills, Fever, Night Sweats Eyes: Denies: Pain, Vision change ENT: Reports: Head Aches Skin: Reports: Rash, Itching, Dry, Other (bruising onthe right arm) Pulmonary: Denies: Dyspnea, Cough Cardiovascular: Denies: Chest Pain, Palpitations, Orthopnea, Paroxysmal Noc. Dyspnea, Lt Headedness Gastrointestinal: Reports: Diarrhea Genitourinary: Denies: Dysuria, Frequency, Incontinence, Retention Neurological: Reports: Change in speech, Confusion Psych: Reports: Depression, Memory Issues Physical Examination General Exam: Positive: Alert, No Acute Distress ENT Exam: Positive: Atraumatic, Mucous membr. moist/pink, Pharynx Normal Chest Exam: Positive: Clear to auscultation, Normal air movement Heart Exam: Positive: Rate Normal, Regular Rhythm, Normal S1, Normal S2; Negative: Murmurs, Rubs Telemetry: Positive: No significant arrhythmia Abdomen Exam: Positive: Normal bowel sounds, Soft; Negative: Tenderness, Hepatospenomegaly Extremity Exam: Negative: Clubbing, Cyanosis, Edema Skin Exam: Positive: Rash (dry with small red papular rash over the back and upper part of chest) Neuro Exam: Positive: Other (slow words) Psych Exam: Positive: Other (aphathic, no eye contact, flat affect. ) Vital Signs Vital Signs Date Time Temp Pulse Resp B/P (MAP) Pulse Ox O2 Delivery O2 Flow Rate FiO2 09/16/20 11:06 09/16/20 10:27 98.2 56 17 98 Room Air Laboratory Data Labs 24H Laboratory Tests 2 09/16/20 11:06: Immature Granulocyte % (Auto) 0.7, Neutrophils (%) (Auto) 79.4H, Lymphocytes (%) (Auto) 11.2L, Monocytes (%) (Auto) 5.9, Eosinophils (%) (Auto) 2.4, Basophils (%) (Auto) 0.4, Neutrophils # (Auto) 6.6, Lymphocytes # (Auto) 0.9L, Monocytes # (Auto) 0.5, Eosinophils # (Auto) 0.2, Basophils # (Auto) 0.0, Nucleated Red Blood Cells % (auto) 0.0, Blood Gas Bicarbonate Standard 25.0, Venous Blood pH 7.410, Venous Blood Partial Pressure CO2 42.5, Venous Blood Partial Pressure O2 32.5, Venous Blood Total Carbon Dioxide 27.6, Venous Blood HCO3 26.3, Venous Blood Oxygen Saturation 63.3, Venous Blood Base Excess 1.5, Anion Gap 6L, Glomerular Filtration Rate 23.3L, Osmolality 299, Lactic Acid Level 1.2, Calcium Level 9.4, Magnesium Level 3.3H, Total Bilirubin 0.8, Direct Bilirubin 0.2, Aspartate Amino Transf (AST/SGOT) 18, Alanine Aminotransferase (ALT/SGPT) 21, Alkaline Phosphatase 120H, Ammonia 11, Total Creatine Kinase 56, Creatine Kinase MB < 1.0, Creatine Kinase MB Relative Index 1.79, Troponin I < 0.02, Total Protein 7.1, Albumin 4.0, Albumin/Globulin Ratio 1.3, Thyroid Stimulating Hormone (TSH) 3.110, Salicylates Level < 1.7L, Acetaminophen Level < 2.0L, Ethyl Alcohol Level < 0.003 09/16/20 12:37: Urine Color YELLOW, Urine Appearance CLEAR, Urine pH 6.0, Urine Specific [place] 1.013, Urine Protein 2+H, Urine Glucose (UA) NEGATIVE, Urine Ketones NEGATIVE, Urine Blood NEGATIVE, Urine Nitrite NEGATIVE, Urine Bilirubin NEGATIVE, Urine Urobilinogen 0.2, Urine Leukocyte Esterase NEGATIVE, Urine WBC (Auto) 1, Urine RBC (Auto) 3, Urine Hyaline Casts (Auto) 3, Urine Bacteria (Auto) 1+H, Urine Squamous Epithelial Cells 0, Urine Mucus (Auto) SMALL, Urine Sperm (Auto) CBC/BMP Laboratory Tests 09/16/20 11:06 Microbiology Microbiology 09/16/20 Blood Culture, Received Pending 09/16/20 Blood Culture, Received Pending Assessment/Plan 64 year old male with h/o congenital kidney disease with Depression, unspecified psychosis, likely underlying Dementia, following with Dr Grace since last year, 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 This reports started after the second dose of COVID vaccine along with diarrhea and a skin rash. Behavioral Changes Has h/o depression, psychosis and likely underlying dementia. will continue current psychiatric medications as prescribed by Dr Grace serotai, zoloft, temazepam. will discuss with Dr Grace on Friday if we need to make any changes No signs of acute infectious process. AZUCENA on CKD likely due to poor oral intake in past 2 weeks along with some ongoing diarrhea will give 1 liter fluid. nephro consulted. Renal transplant status with allograft nephropathy continue immunosuppressants as per home. HTN amlodipine, coreg Hyperuricemia/gout allopurinol skin rash triamcinolone. CAD s/p stents asa, statin, coreg. Plan / VTE VTE Prophylaxis Ordered?: Yes NADINE STRICKLAND MD Sep 16, 2020 13:48
[2020-09-17] MEDS: OMEPRAZOLE 20 MG CAP PO SCH (10:22)
[2020-09-17] MEDS: MYFORTIC 180 MG PO SCH ×2 (10:23→20:25)
[2020-09-17] MEDS: allopurinoL 100 MG TAB PO SCH (10:24)
[2020-09-17] MEDS: CARVedilol 12.5 MG TAB PO SCH ×2 (10:24→20:26)
[2020-09-17] MEDS: ASPIRIN 81MG ENTERIC TABLET PO SCH (10:25)
[2020-09-17] MEDS: SERTRALINE 100 MG TAB PO SCH (10:25)
[2020-09-17] MEDS: predniSONE 5 MG TAB PO SCH (10:26)
[2020-09-17] MEDS: QUEtiapine FUMARATE 25 MG TAB PO SCH (10:26)
[2020-09-17] MEDS: TACROLIMUS 0.5 MG CAP PO SCH ×2 (10:26→20:24)
[2020-09-17] MEDS: TRIAMCINOLONE ACET 0.1% CREAM 80 GM TOP SCH ×2 (10:27→20:25)
--- NOTE | 2020-09-17 11:00 | IPNPDOC ---
Subjective Date Seen The patient was seen on 09/17/20. Subjective Chief Complaint/HPI Still saying mostly "no , yes, ok " still no eye contact. As per nurse, sat at the side of bed but refused to go to the bathroom to wash up. When i was in the room he put on his socks by himself in laying position and then took them off again. He was able to pull up his legs to reach them to put on the socks. No issues over night. Objective Physical Examination General Exam: Positive: Alert, Cooperative, No Acute Distress, Other (few words) ENT Exam: Positive: Atraumatic, Mucous membr. moist/pink, Pharynx Normal Chest Exam: Positive: Clear to auscultation, Normal air movement Heart Exam: Positive: Rate Normal, Regular Rhythm, Normal S1, Normal S2; Negative: Murmurs, Rubs Telemetry: Positive: No significant arrhythmia Abdomen Exam: Positive: Normal bowel sounds, Soft; Negative: Tenderness, Hepatospenomegaly Extremity Exam: Negative: Clubbing, Cyanosis, Edema Skin Exam: Positive: Rash (dry with small red papular rash over the back and upper part of chest) Neuro Exam: Positive: Other (slow words) Psych Exam: Positive: Other (aphathic, no eye contact, flat affect. 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 This reports started after the second dose of COVID vaccine along with diarrhea and a skin rash. Behavioral Changes Has h/o depression, psychosis and likely underlying dementia. will continue current psychiatric medications as prescribed by Dr Grace serotai, zoloft, temazepam. will discuss with Dr Grace on Friday if we need to make any changes No signs of acute infectious process. AZUCENA on CKD likely due to poor oral intake in past 2 weeks along with some ongoing diarrhea will give 1 liter fluid. nephro consulted. Renal transplant status with allograft nephropathy continue immunosuppressants as per home. HTN amlodipine, coreg Hyperuricemia/gout allopurinol skin rash triamcinolone. CAD s/p stents asa, statin, coreg. Plan/VTE VTE Prophylaxis Ordered?: Yes VS, I&O, 24H, [facility] Vital Signs/I&O Vital Signs Date Time Temp Pulse Resp B/P (MAP) Pulse Ox O2 Delivery O2 Flow Rate FiO2 09/17/20 10:24 62 154/83 09/17/20 06:00 97.2 18 97 Room Air I&O- Last 24 Hours up to 6 AM 09/17/20 06:00 Intake Total 1149 ml Output Total 0 ml Balance 1149 ml Laboratory Data 24H LABS Laboratory Tests 2 09/16/20 11:06: Immature Granulocyte % (Auto) 0.7, Neutrophils (%) (Auto) 79.4H, Lymphocytes (%) (Auto) 11.2L, Monocytes (%) (Auto) 5.9, Eosinophils (%) (Auto) 2.4, Basophils (%) (Auto) 0.4, Neutrophils # (Auto) 6.6, Lymphocytes # (Auto) 0.9L, Monocytes # (Auto) 0.5, Eosinophils # (Auto) 0.2, Basophils # (Auto) 0.0, Nucleated Red Blood Cells % (auto) 0.0, Blood Gas Bicarbonate Standard 25.0, Venous Blood pH 7.410, Venous Blood Partial Pressure CO2 42.5, Venous Blood Partial Pressure O2 32.5, Venous Blood Total Carbon Dioxide 27.6, Venous Blood HCO3 26.3, Venous Blood Oxygen Saturation 63.3, Venous Blood Base Excess 1.5, Anion Gap 6L, Glomerular Filtration Rate 23.3L, Osmolality 299, Lactic Acid Level 1.2, Calcium Level 9.4, Magnesium Level 3.3H, Total Bilirubin 0.8, Direct Bilirubin 0.2, Aspartate Amino Transf (AST/SGOT) 18, Alanine Aminotransferase (ALT/SGPT) 21, Alkaline Phosphatase 120H, Ammonia 11, Total Creatine Kinase 56, Creatine Kinase MB < 1.0, Creatine Kinase MB Relative Index 1.79, Troponin I < 0.02, Total Protein 7.1, Albumin 4.0, Albumin/Globulin Ratio 1.3, Thyroid Stimulating Hormone (TSH) 3.110, Salicylates Level < 1.7L, Acetaminophen Level < 2.0L, Ethyl Alcohol Level < 0.003 09/16/20 12:37: Urine Color YELLOW, Urine Appearance CLEAR, Urine pH 6.0, Urine Specific [place] 1.013, Urine Protein 2+H, Urine Glucose (UA) NEGATIVE, Urine Ketones NEGATIVE, Urine Blood NEGATIVE, Urine Nitrite NEGATIVE, Urine Bilirubin NEGATIVE, Urine Ur obilinogen 0.2, Urine Leukocyte Esterase NEGATIVE, Urine WBC (Auto) 1, Urine RBC (Auto) 3, Urine Hyaline Casts (Auto) 3, Urine Bacteria (Auto) 1+H, Urine Squamous Epithelial Cells 0, Urine Mucus (Auto) SMALL, Urine Sperm (Auto) , Urine Random Creatinine 129.0, Urine Random Sodium 46, Urine Opiates Screen NEGATIVE, Urine Methadone Screen NEGATIVE, Urine Barbiturates Screen NEGATIVE, Urine Phencyclidine Screen NEGATIVE, Urine Amphetamines Screen NEGATIVE, Urine Benzodiazepines Screen POSITIVEH, Urine Cocaine Metabolite Screen NEGATIVE, Urine Cannabinoids Screen NEGATIVE, Coronavirus (COVID-19)(PCR) NEGATIVE, Influenza Type A (RT-PCR) NEGATIVE, Influenza Type B (RT-PCR) NEGATIVE, Respiratory Syncytial Virus (PCR) NEGATIVE 09/17/20 06:18: Immature Granulocyte % (Auto) 0.7, Neutrophils (%) (Auto) 66.6H, Lymphocytes (%) (Auto) 20.9L, Monocytes (%) (Auto) 8.0, Eosinophils (%) (Auto) 3.3H, Basophils (%) (Auto) 0.5, Neutrophils # (Auto) 5.1, Lymphocytes # (Auto) 1.6, Monocytes # (Auto) 0.6, Eosinophils # (Auto) 0.3, Basophils # (Auto) 0.0, Nucleated Red Blood Cells % (auto) 0.0, Anion Gap 8, Glomerular Filtration Rate 23.0L, Calcium Level 8.6L CBC/BMP Laboratory Tests 09/16/20 11:06 09/17/20 06:18 Microbiology Microbiology 09/16/20 Blood Culture, Received Pending 09/16/20 Blood Culture, Received Pending NADINE STRICKLAND MD Sep 17, 2020 11:00
[2020-09-17 14:00] VITALS: BP 152/82
[2020-09-17] MEDS ORDERED: NS 500 ML IV ONE (18:15)
[2020-09-17] MEDS: hydrOXYzine 10 MG TAB PO PRN (18:37)
[2020-09-17] MEDS: diphenhydrAMINE CREAM 30GM TOP PRN (18:37)
[2020-09-17] MEDS: ATORVASTATIN 20 MG TAB PO SCH (20:24)
[2020-09-17] MEDS: TEMAZEPAM 15 MG CAP PO SCH (20:24)
[2020-09-17] MEDS: QUEtiapine FUMARATE 50MG TAB PO SCH (20:24)
[2020-09-17] MEDS: amLODIPine 5 MG TAB PO SCH (20:26)
[2020-09-17 22:00] VITALS: BP 140/79
--- NOTE | 2020-09-17 23:06 | CR ---
INITIAL INPATIENT NEPHROLOGY CONSULTATION DATE: 09/17/2020 REQUESTING PHYSICIAN: Dr. Fox CONSULTING PHYSICIAN: Dr. Cannon REASON FOR CONSULTATION: Management of acute renal failure superimposed on chronic kidney disease and renal allograft status. CHIEF COMPLAINT: The patient presented to the hospital yesterday with progressively worsening altered mental status. 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 Other comorbidities as mentioned below. He was brought into the Emergency Room by his who reported that the patient was having behavioral changes after COVID vaccine 2 weeks ago. The patient is getting quieter, more withdrawn, seems depressed. He doesn't communicate well. He is also following up Dr. Grace in the psychiatric office and his medications are being adjusted as an outpatient. The also reported that the patient has a poor appetite. He was admitted under the Hospitalist Service yesterday because of behavior changes and acute renal failure superimposed on chronic kidney disease. His creatinine on arrival was 2.9 which is higher than his baseline. I saw and evaluated the patient today morning at the bedside. He was unable to provide me with any reliable history. Most of the history was obtained from the medical team and from the patient's chart. PAST MEDICAL HISTORY: The patient's past medical history is significant for: 1. Congenital kidney disease. 2. End-stage renal disease status post kidney transplants x2. 3. Chronic kidney disease stage 3, baseline creatinine of around 1.8 to 2. 4. Hypertension. 5. Sarcoidosis. 6. Coronary artery disease and myocardial infarction with stents in the past. 7. Secondary hyperparathyroidism. 8. Anxiety disorder. 9. Depression. 10. History of cholangitis and choledocholithiasis. PAST SURGICAL HISTORY: The patient's past surgical history is significant for: 1. Status post kidney transplants x2. 2. Status post removal of the first transplanted kidney due to infection. 3. Bilateral ambler nephrectomy. 4. History of peritoneal dialysis catheter placement and removal. 5. AV fistula creation in the past. 6. Left shoulder repair. 7. Cardiac stents in the past. 8. Cholecystectomy. 9. Multiple ERCPs. 10. Status post biliary tree sweep in March 2020. ALLERGIES: He is allergic to: 1. Codeine. 2. Meperidine. 3. Morphine. 4. Oxycodone. 5. Vancomycin. FAMILY HISTORY: No significant family history of end-stage renal disease requiring hemodialysis. SOCIAL HISTORY: He denies any smoking, illicit drug abuse or alcohol abuse. REVIEW OF SYSTEMS: Constitutional: He denies any fevers or chills. He does report poor appetite. Eyes: He denies any blurry vision, double vision. ENT: Denies any dysuria, odynophagia. Cardiovascular: Denies any chest pain or palpitations. Respiratory: He denies any shortness of breath or cough. GI: He reports decreased appetite. Genitourinary: He denies any dysuria, hematuria. Musculoskeletal: He denies any muscle aches and pains. Skin: He denies any rashes or ulcers. Hematological/Oncologic: He denies any easy bleeding or bruising. SHEEPSKIN PICKLER: He denies any strokes or seizures. All other review of systems is negative. PHYSICAL EXAMINATION: GENERAL APPEARANCE: The patient is awake, alert, oriented times two, sitting up in the bed. VITAL SIGNS: Temperature is 97.7 degrees Fahrenheit, blood pressure 152/82, pulse is 65, respiratory rate of 16, saturating 97% on room air. HEAD AND NECK: Extraocular muscles intact. Pupils are equally round and reactive to light. Mucous membranes are moist. Neck is supple. There is no jugular venous distention. CARDIOVASCULAR: S1, S2, regular rate. EXTREMITIES: No edema of the bilateral lower extremities. RESPIRATORY: Chest is clear to auscultation bilaterally. Bilaterally currently no rales or rhonchi. ABDOMEN: Soft, positive bowel sounds. Left lower quadrant renal allograft is noted. Mild suprapubic fullness is noted. MUSCULOSKELETAL: No clubbing, no cyanosis. Pulses are 2+. SHEEPSKIN PICKLER: No focal deficits. Power is 5/5 in all extremities. PSYCH: The patient has a withdrawn and depressed mood and does not make eye contact. LABORATORY REVIEW: CBC showed a white blood cell count of 7.7, hemoglobin 11.3, platelet count 110. Urinalysis showed 2+ protein and 1+ bacteria. No leukocyte esterase or nitrites were noted. BMP showed sodium 145, potassium 4, chloride 111, bicarbonate 26, BUN 39, creatinine is 2.9. It was 2.9 yesterday as well. Lactic acid 1.2, calcium is 8.6. Urine toxicology is positive for benzodiazepines only. SARS COVID-19 is negative. IMAGING DATA: A CAT scan of the abdomen and pelvis was noted. It showed transplanted kidney in the left hemipelvis with mild hydronephrosis, large lower pole cyst in the transplanted kidney which is around 7.7 cm. Mildly distended bladder with small stable left sided diverticulum. CURRENT INPATIENT MEDICATIONS: The patient's medications include: 1. Allopurinol 100 mg daily. 2. Amlodipine 5 mg p.o. daily. 3. Aspirin 81 mg daily. 4. Lipitor 40 mg q. h.s. 5. Coreg 12.5 mg p.o. twice daily. 6. Omeprazole 20 mg p.o. daily. 7. Myfortic 80 mg p.o. twice daily. 8. Prednisone 5 mg p.o. daily. 9. Seroquel 50 mg q. h.s. and 25 mg in the morning. 10. Zoloft 100 mg p.o. daily. 11. Detrol 0.5 mg p.o. twice daily. 12. Temazepam 15 mg p.o. q. h.s. ASSESSMENT AND PLAN: 1. Acute renal failure superimposed on chronic kidney disease the patient's renal allograft function is worse. His baseline creatinine is around 1.8 to 2. His creatinine right now is running high. The patient has a full bladder on CAT scan. Bladder scan will be done and because of hydronephrosis and bladder distention. If post void residual is more than 250 mL, then the patient would need Soto catheter placement. 2. Renal allograft status - continue current dose of Tacrolimus, Prednisone and Myfortic at this time. 3. Hypertension - blood pressure is optimal. Continue current dose of Amlodipine and Coreg. 4. Chronic gout secondary to chronic kidney disease - continue current dose of Allopurinol 100 mg p.o. daily. 5. Coronary artery disease with history of stent in the past - continue current dose of Aspirin and Atorvastatin along with Coreg. 6. Altered mental status and behavioral changes - The patient sees Dr. Grace. Continue current dose of Seroquel, Zoloft and Temazepam. The rest of the dose adjustment will be done by Dr. Grace on Friday.
[2020-09-18] MEDS: hydrOXYzine 10 MG TAB PO PRN ×2 (01:52→21:02)
[2020-09-18 05:48] LABS: BASO % 0.3 % (0.0-1.0); EOS # 0.3 10^3/uL (0.0-0.5); EOS % 3.1 % (0.0-3.0); HEMOGLOBIN 11.8 g/dl (13.5-17.5); LYMPH # 1.5 10^3/uL (1.5-5.0); LYMPH % 16.9 % (24.0-44.0); MEAN CORPUSCULAR HEMOGLOBIN 29.6 pg (27.0-33.0); MEAN CORPUSCULAR HGB CONC 31.9 g/dl (32.0-36.5); MEAN CORPUSCULAR VOLUME 92.7 fl (80.0-96.0); MONO # 0.7 10^3/uL (0.0-0.8); MONO % 8.2 % (2.0-8.0); NEUTROPHILS # 6.2 10^3/uL (1.5-8.5); NEUTROPHILS % 70.9 % (36.0-66.0); PLATELET COUNT, AUTOMATED 114 10^3/uL (150-450); RED BLOOD COUNT 3.99 10^6/uL (4.30-6.10); WHITE BLOOD COUNT 8.8 10^3/uL (4.0-10.0)
[2020-09-18 06:00] VITALS: BP 146/82
[2020-09-18 06:23] LABS: CALCIUM LEVEL 8.7 MG/DL (8.8-10.2); CREATININE FOR GFR 2.74 MG/DL (0.70-1.30); GLOMERULAR FILTRATION RATE 24.9 (>49); POTASSIUM SERUM 3.5 MEQ/L (3.5-5.1)
[2020-09-18] MEDS: SERTRALINE 100 MG TAB PO SCH ×2 (09:33→10:29)
[2020-09-18] MEDS: predniSONE 5 MG TAB PO SCH ×2 (09:33→10:29)
[2020-09-18] MEDS: TAMSULOSIN 0.4 MG CAP PO SCH ×2 (09:33→10:29)
[2020-09-18] MEDS: CARVedilol 12.5 MG TAB PO SCH ×3 (09:33→21:02)
[2020-09-18] MEDS: MYFORTIC 180 MG PO SCH ×3 (09:33→20:57)
[2020-09-18] MEDS: QUEtiapine FUMARATE 25 MG TAB PO SCH ×3 (09:33→20:58)
[2020-09-18] MEDS: allopurinoL 100 MG TAB PO SCH ×2 (09:33→10:30)
[2020-09-18] MEDS: OMEPRAZOLE 20 MG CAP PO SCH ×2 (09:33→10:29)
[2020-09-18] MEDS: ASPIRIN 81MG ENTERIC TABLET PO SCH ×2 (09:33→10:29)
[2020-09-18] MEDS: diphenhydrAMINE CREAM 30GM TOP PRN (09:34)
[2020-09-18] MEDS: TRIAMCINOLONE ACET 0.1% CREAM 80 GM TOP SCH ×2 (09:34→21:03)
[2020-09-18] MEDS: TACROLIMUS 0.5 MG CAP PO SCH ×2 (10:27→20:58)
--- NOTE | 2020-09-18 12:43 | IPNPDOC ---
Subjective Date Seen The patient was seen on 09/18/20. Subjective Chief Complaint/HPI Patient still talking one to 2 words or short sentences. Does not make eye contact. Often does not answer to questions. Restless cannot sit still walking the halls with sitter. No aggressive or fighting can be redirected by staff he he is going the wrong way. Did not sleep at night. Poor oral intake. Spoke with Dr Stoner yesterday and he reccomended that as Dr Grace is closely following him to follow her recommendations. he did not advice any medication change Objective Physical Examination General Exam: Positive: Alert, Cooperative, No Acute Distress, Other (few words) ENT Exam: Positive: Atraumatic, Mucous membr. moist/pink, Pharynx Normal Chest Exam: Positive: Clear to auscultation, Normal air movement Heart Exam: Positive: Rate Normal, Regular Rhythm, Normal S1, Normal S2; Negative: Murmurs, Rubs Telemetry: Positive: No significant arrhythmia Abdomen Exam: Positive: Normal bowel sounds, Soft; Negative: Tenderness, Hepatospenomegaly Extremity Exam: Negative: Clubbing, Cyanosis, Edema Skin Exam: Positive: Rash (dry with small red papular rash over the back and upper part of chest) Neuro Exam: Positive: Other (slow words) Psych Exam: Positive: Other (aphathic, no eye contact, flat affect. ) Assessment /Plan Assessment 64 year old male with h/o congenital kidney disease with Depression, unspecified psychosis, likely underlying Dementia, following with Dr Grace since last year, ESRD s/p kidney transplant x 2 now with chronic allograft nephropathy with Baseline creatinine of 1.8 presented to the ED with acute onset behavioral colon ges over the past 2 weeks. This reports started after the second dose of COVID vaccine along with diarrhea and a skin rash. Behavioral Changes ? acute delirium. Has h/o depression, psychosis and likely underlying dementia. will continue current psychiatric medications as prescribed by Dr Grace serowilliamsl, zoloft, temazepam. will discuss with Dr Grace on Friday if we need to make any changes No signs of acute infectious process. AZUCENA on CKD he was recently started on Lasix by Dr Giles as he was fluid overloaded. reports that the swelling has gone down. Also he has been having poor oral intake in past 2 weeks along with some ongoing diarrhea given gentle hydration creatinine slightly better today. Renal transplant status with allograft nephropathy continue immunosuppressants as per home. HTN amlodipine, coreg Hyperuricemia/gout allopurinol Skin rash with severe itching after the vaccine. triamcinolone, benadryl cream and atarax CAD s/p stents asa, statin, coreg. Plan/VTE VTE Prophylaxis Ordered?: Yes VS, I&O, 24H, Fishbone Vital Signs/I&O Vital Signs Date Time Temp Pulse Resp B/P (MAP) Pulse Ox O2 Delivery O2 Flow Rate FiO2 09/18/20 06:00 98.3 65 18 146/82 (103) 97 Room Air I&O- Last 24 Hours up to 6 AM 09/18/20 06:00 Intake Total 720 ml Output Total 300 ml Balance 420 ml Laboratory Data 24H LABS Laboratory Tests 2 09/18/20 05:29: Immature Granulocyte % (Auto) 0.6, Neutrophils (%) (Auto) 70.9H, Lymphocytes (%) (Auto) 16.9L, Monocytes (%) (Auto) 8.2H, Eosinophils (%) (Auto) 3.1H, Basophils (%) (Auto) 0.3, Neutrophils # (Auto) 6.2, Lymphocytes # (Auto) 1.5, Monocytes # (Auto) 0.7, Eosinophils # (Auto) 0.3, Basophils # (Auto) 0.0, Nucleated Red Blood Cells % (auto) 0.0, Anion Gap 7L, Glomerular Filtration Rate 24.9L, Calcium Level 8.7L CBC/BMP Laboratory Tests 09/18/20 05:29 Microbiology Microbiology 09/16/20 Blood Culture - Preliminary, Resulted No growth after 24 hours . All specim... 09/16/20 Blood Culture - Preliminary, Resulted No Growth after 48 hours. All Specime... NADINE STRICKLAND MD Sep 18, 2020 12:43
[2020-09-18 14:00] VITALS: BP 148/79
[2020-09-18] MEDS: TEMAZEPAM 15 MG CAP PO SCH (20:58)
[2020-09-18] MEDS: ATORVASTATIN 20 MG TAB PO SCH (20:59)
[2020-09-18] MEDS: amLODIPine 5 MG TAB PO SCH (21:03)
--- NOTE | 2020-09-18 21:45 | IPN ---
NEPHROLOGY PROGRESS NOTE DATE: 09/18/2020 SUBJECTIVE: The patient was seen and examined at the bedside today morning. He currently has a one to one sitter in the room for him. The patient is not very willing to engage in any conversation or communication. Creatinine is still higher than baseline. It is 2.7 today. OBJECTIVE: VITAL SIGNS: Temperature is 98.1 degrees Fahrenheit, blood pressure 148/79, pulse is 64, respiratory rate 18, saturating 100% on room air. INTAKE AND OUTPUT: Urine output recorded as 300 mL yesterday, 550 mL so far today since overnight. PHYSICAL EXAMINATION: GENERAL APPEARANCE: The patient is awake, alert, oriented x2, laying in bed, very quiet and withdrawn. HEAD AND NECK: Pupils are equally round and reactive to light. Mucous membranes are moist. Neck is supple. There is no jugular venous distention. CARDIOVASCULAR: S1, S2, regular rate. RESPIRATORY: Chest is clear to auscultation bilaterally. Bilaterally currently no rales or rhonchi. ABDOMEN: Soft, mildly tender to deep palpation in the suprapubic region. Bladder is palpable. MUSCULOSKELETAL: No clubbing, no cyanosis. Pulses are 2+. ROLL CUTTING OPERATOR: No focal deficits. Power is 5/5 in all extremities. PSYCH: The patient has a depressed mood. He does not make any eye contact. LAB REVIEW: CBC showed a white blood cell count of 8.8, hemoglobin 11.8, platelet count of 114. BMP showed sodium 145, potassium 3.5, chloride 109, bicarbonate 29, BUN 34, creatinine is 2.7. It was 2.9 yesterday. Calcium is 8.7. CURRENT INPATIENT MEDICATIONS: The patient's medications were all reviewed by myself. He was started on Flomax today morning. Seroquel dose has been decreased to 25 mg p.o. daily. ASSESSMENT AND PLAN: 1. Acute renal failure superimposed on chronic kidney disease Baseline creatinine is 2. Renal function has not improved back to baseline. He has bladder distention and hydronephrosis on the CAT scan. The patient is going to get a Soto catheter placed, and I will keep the Soto in for at least 48 hours to see if it makes any difference in his renal function. 2. Renal allograft status - continue Myfortic, Prednisone and Tacrolimus. Relief of hydronephrosis with the Soto catheter as mentioned as above. 3. Hypertension - continue Amlodipine and Coreg. Blood pressure is optimal. 4. Chronic gout secondary to chronic kidney disease - continue current dose of Allopurinol. 5. Altered mental status and behavioral changes Dr. Grace is seeing the patient. Antipsychotic medications have been changed as per her recommendations. The patient is under one to one observation.
[2020-09-18 22:00] VITALS: BP 159/86
[2020-09-19] MEDS: HALOPERIDOL 5MG/ML VIAL (J1630 PER 1) IV PRN ×2 (00:11→21:10)
[2020-09-19 06:00] VITALS: BP 180/80
[2020-09-19 06:43] LABS: BASO % 0.5 % (0.0-1.0); EOS # 0.3 10^3/uL (0.0-0.5); HEMATOCRIT 35.8 % (42.0-52.0); HEMOGLOBIN 11.5 g/dl (13.5-17.5); LYMPH # 1.4 10^3/uL (1.5-5.0); LYMPH % 18.1 % (24.0-44.0); MEAN CORPUSCULAR HEMOGLOBIN 29.9 pg (27.0-33.0); MEAN CORPUSCULAR HGB CONC 32.1 g/dl (32.0-36.5); MONO # 0.6 10^3/uL (0.0-0.8); MONO % 7.5 % (2.0-8.0); NEUTROPHILS # 5.4 10^3/uL (1.5-8.5); NEUTROPHILS % 69.3 % (36.0-66.0); PLATELET COUNT, AUTOMATED 101 10^3/uL (150-450); RED BLOOD COUNT 3.85 10^6/uL (4.30-6.10); WHITE BLOOD COUNT 7.8 10^3/uL (4.0-10.0)
[2020-09-19 07:07] LABS: CALCIUM LEVEL 8.8 MG/DL (8.8-10.2); CREATININE FOR GFR 2.29 MG/DL (0.70-1.30); GLOMERULAR FILTRATION RATE 30.7 (>49); POTASSIUM SERUM 3.9 MEQ/L (3.5-5.1)
[2020-09-19] MEDS: OMEPRAZOLE 20 MG CAP PO SCH ×2 (09:00→11:28)
[2020-09-19] MEDS: TACROLIMUS 0.5 MG CAP PO SCH ×3 (11:27→21:08)
[2020-09-19] MEDS: QUEtiapine FUMARATE 25 MG TAB PO SCH ×2 (11:28→21:09)
[2020-09-19] MEDS: MYFORTIC 180 MG PO SCH ×2 (11:28→21:07)
[2020-09-19] MEDS: SERTRALINE 100 MG TAB PO SCH (11:28)
[2020-09-19] MEDS: ASPIRIN 81MG ENTERIC TABLET PO SCH (11:28)
[2020-09-19] MEDS: TAMSULOSIN 0.4 MG CAP PO SCH ×2 (11:29→12:37)
[2020-09-19] MEDS: allopurinoL 100 MG TAB PO SCH (11:29)
[2020-09-19] MEDS: TRIAMCINOLONE ACET 0.1% CREAM 80 GM TOP SCH ×2 (11:29→21:10)
[2020-09-19] MEDS: predniSONE 5 MG TAB PO SCH (11:33)
[2020-09-19] MEDS: CARVedilol 12.5 MG TAB PO SCH ×2 (11:36→21:10)
--- NOTE | 2020-09-19 12:32 | IPNPDOC ---
Subjective Date Seen The patient was seen on 09/19/20. Subjective Chief Complaint/HPI Patient had acute decompensation last night. He got all his medications at bedtime. He had cote placed in the evening. From around 6 pm his behavior became more bizarre. He was switching the TV on and off. Started pacing the room no sleep. At around 1 am he was trying to pull out his cote, pacing in the room, trying to trash the room, picking things from the trash can, trying to take down things from the wall. He had to be given haldol to calm him down then he fell asleep. he was hardly speaking anything during the whole episode. He w ould not answer any questions or pay any attention when spoken too. Would not make any eye contact. Objective Physical Examination General Exam: Positive: Alert, Cooperative, No Acute Distress, Other (few words) ENT Exam: Positive: Atraumatic, Mucous membr. moist/pink, Pharynx Normal Chest Exam: Positive: Clear to auscultation, Normal air movement Heart Exam: Positive: Rate Normal, Regular Rhythm, Normal S1, Normal S2; Negative: Murmurs, Rubs Telemetry: Positive: No significant arrhythmia Abdomen Exam: Positive: Normal bowel sounds, Soft; Negative: Tenderness, Hepatospenomegaly Extremity Exam: Negative: Clubbing, Cyanosis, Edema Skin Exam: Positive: Rash (dry with small red papular rash over the back and upper part of chest) Neuro Exam: Positive: Other (slow words) Psych Exam: Positive: Other (aphathic, no eye contact, flat affect. 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 This reports started after the second dose of COVID vaccine along with diarrhea and a skin rash. Behavioral Changes ? acute delirium on dementia with psychotic features. decompensated. Needed haldol. Has h/o chronic delirium with likely underlying dementia. Spoke with Dr Grace she felt last year Patient has chronic delirium with possible underlying dementia. Difficult to test for dementia as he does not tlk much, does not answer question. She did not feel he has a primary psychiatric disorder however very difficult to be certain as he does not say much so she could not say for certain if he was having hallucinations. Most of the symptoms and features were given by the . She recommended to increase the seroquel to 75 mg at night and continue the others. seroquel, zoloft, temazepam. No signs of acute infectious process. AZUCENA on CKD baseline cretinine around 2.0 he was recently started on Lasix by Dr Giles as he was fluid overloaded. reports that the swelling has gone down. Also he has been having poor oral intake in past 2 weeks along with some ongoing diarrhea given gentle hydration with Creatinine still above baseline CT abdomen had show some hydronephrosis in the transplant Creatinine close to baseline. 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 continue immunosuppressants as per home. HTN amlodipine, coreg Hyperuricemia/gout allopurinol Skin rash with severe itching after the vaccine. triamcinolone, benadryl cream and atarax CAD s/p stents asa, statin, coreg. Plan/VTE VTE Prophylaxis Ordered?: Yes VS, I&O, 24H, Fishbone Vital Signs/I&O Vital Signs Date Time Temp Pulse Resp B/P (MAP) Pulse Ox O2 Delivery O2 Flow Rate FiO2 09/19/20 11:36 68 142/78 09/19/20 06:00 99.4 16 99 Room Air I&O- Last 24 Hours up to 6 AM 09/19/20 05:59 Intake Total 960 ml Output Total 875 ml Balance 85 ml Laboratory Data 24H LABS Laboratory Tests 2 09/19/20 06:19: Immature Granulocyte % (Auto) 0.6, Neutrophils (%) (Auto) 69.3H, Lymphocytes (%) (Auto) 18.1L, Monocytes (%) (Auto) 7.5, Eosinophils (%) (Auto) 4.0H, Basophils (%) (Auto) 0.5, Neutrophils # (Auto) 5.4, Lymphocytes # (Auto) 1.4L, Monocytes # (Auto) 0.6, Eosinophils # (Auto) 0.3, Basophils # (Auto) 0.0, Nucleated Red Blood Cells % (auto) 0.0, Anion Gap 5L, Glomerular Filtration Rate 30.7L, Calcium Level 8.8 CBC/BMP Laboratory Tests 09/19/20 06:19 Microbiology Microbiology 3/13/21 Blood Culture - Preliminary, Resulted No Growth after 48 hours. All Specime... 09/16/20 Blood Culture - Preliminary, Resulted No Growth after 72 hours. All specime... NADINE STRICKLAND MD Sep 19, 2020 12:32
[2020-09-19 14:00] VITALS: BP 146/68
[2020-09-19] MEDS: hydrOXYzine 10 MG TAB PO PRN (16:45)
[2020-09-19] MEDS ORDERED: haloperidoL 0.5 MG TAB PO ONE (17:00)
[2020-09-19] MEDS: TEMAZEPAM 15 MG CAP PO SCH (21:08)
[2020-09-19] MEDS: ATORVASTATIN 20 MG TAB PO SCH (21:09)
[2020-09-19] MEDS: amLODIPine 5 MG TAB PO SCH (21:10)
[2020-09-19 22:00] VITALS: BP 157/84
--- NOTE | 2020-09-19 23:26 | IPN ---
NEPHROLGY PROGRESS NOTE DATE: 09/19/2020 SUBJECTIVE: The patient was seen and examined at the bedside today morning. He has a one to one sitter. He is not interested in any new medication. He just gives one word answers to the questions. He got a Soto catheter placed. That has improved his renal function. Creatinine is improved from 2.7 to 2.2 today. OBJECTIVE: VITAL SIGNS: Temperature is 98.3 degrees Fahrenheit, blood pressure 146/68, pulse rate 63, respiratory rate of 17, saturating 95% on room air. INTAKE AND OUTPUT: Urine output recorded as 875 mL yesterday, 550 mL so far today since overnight. PHYSICAL EXAMINATION: GENERAL APPEARANCE: The patient is awake, alert, oriented x2, sitting up in the bed in no apparent distress. HEAD AND NECK: Extraocular muscles intact. Pupils are equally round and reactive to light. Mucous membranes are moist. Neck is supple. There is no jugular venous distention. CARDIOVASCULAR: S1, S2, regular rate. EXTREMITIES: No edema of the bilateral lower extremities. RESPIRATORY: Chest is clear to auscultation bilaterally. Bilaterally currently no rales or rhonchi. ABDOMEN: Soft, positive bowel sounds, nontender. GENITOURINARY: He has an indwelling Soto catheter. MUSCULOSKELETAL: No clubbing, no cyanosis. Pulses are 2+. COMMISSARY AGENT: No focal deficits. Power is 5/5 in all extremities. LAB REVIEW: CBC showed a white blood cell count of 7.8, hemoglobin 11.5, platelet count 101. BMP showed sodium 145, potassium 3.9, chloride 111, bicarbonate 29, BUN 27, creatinine is 2.2. It was 2.7 yesterday. Microbiology blood cultures are negative so far. CURRENT INPATIENT MEDICATIONS: The patient's medications were all reviewed by myself. No significant change in the medications today as compared with yesterday. ASSESSMENT AND PLAN: 1. Acute renal failure superimposed on chronic kidney disease it was secondary to hydronephrosis and urinary retention. The patient got a Soto catheter placed yesterday. Creatinine is significantly better today. Continue the Soto catheter at this time. 2. Renal allograft status - continue Myfortic, Prednisone and Tacrolimus. 3. Hypertension - continue Amlodipine and Coreg. 4. Chronic gout - continue current dose of Allopurinol. 5. Altered mental status and behavioral changes antipsychotic medications as per Dr. Grace.
[2020-09-20 06:00] VITALS: BP 154/76
[2020-09-20 06:45] LABS: BASO % 0.3 % (0.0-1.0); EOS # 0.3 10^3/uL (0.0-0.5); EOS % 3.7 % (0.0-3.0); HEMATOCRIT 38.1 % (42.0-52.0); HEMOGLOBIN 12.2 g/dl (13.5-17.5); LYMPH # 1.3 10^3/uL (1.5-5.0); LYMPH % 15.1 % (24.0-44.0); MEAN CORPUSCULAR HEMOGLOBIN 30.1 pg (27.0-33.0); MEAN CORPUSCULAR VOLUME 94.1 fl (80.0-96.0); MONO # 0.7 10^3/uL (0.0-0.8); MONO % 7.3 % (2.0-8.0); NEUTROPHILS # 6.5 10^3/uL (1.5-8.5); NEUTROPHILS % 72.9 % (36.0-66.0); PLATELET COUNT, AUTOMATED 100 10^3/uL (150-450); RED BLOOD COUNT 4.05 10^6/uL (4.30-6.10); WHITE BLOOD COUNT 8.9 10^3/uL (4.0-10.0)
[2020-09-20 07:10] LABS: CALCIUM LEVEL 9.3 MG/DL (8.8-10.2); CREATININE FOR GFR 2.19 MG/DL (0.70-1.30); GLOMERULAR FILTRATION RATE 32.3 (>49); POTASSIUM SERUM 4.1 MEQ/L (3.5-5.1)
--- NOTE | 2020-09-20 08:56 | IPNPDOC ---
Subjective Date Seen The patient was seen on 09/20/20. Subjective Chief Complaint/HPI Again became restless and agitated late at night and needed IV haldol. Objective Physical Examination General Exam: Positive: Alert, Cooperative, No Acute Distress, Other (few words) ENT Exam: Positive: Atraumatic, Mucous membr. moist/pink, Pharynx Normal Chest Exam: Positive: Clear to auscultation, Normal air movement Heart Exam: Positive: Rate Normal, Regular Rhythm, Normal S1, Normal S2; Negative: Murmurs, Rubs Telemetry: Positive: No significant arrhythmia Abdomen Exam: Positive: Normal bowel sounds, Soft; Negative: Tenderness, Hepatospenomegaly Extremity Exam: Negative: Clubbing, Cyanosis, Edema Skin Exam: Positive: Rash (dry with small red papular rash over the back and upper part of chest) Neuro Exam: Positive: Other (slow words) Psych Exam: Positive: Other (aphathic, no eye contact, flat affect. ) Assessment /Plan Assessment 64 year old male with h/o congenital kidney disease with Depression, unspecified psychosis, likely underlying Dementia, following with Dr Grace since last year, ESRD s/p kidney transplant x 2 now with chronic allograft nephropathy with Baseline creatinine of 1.8 presented to the ED with acute onset behavioral natalee nges over the past 2 weeks. This reports started after the second dose of COVID vaccine along with diarrhea and a skin rash. Acute on chronic delirium with possible underlying dementia decompensated. Needed haldol IV and po. decompensation could have been due to COVID vaccine administration leading to skin rash and itching, poor sleep, diarrhea, poor oral intake, leading to AZUCENA on CKD. Spoke with Dr Grace on 09/18/20 she felt last year Patient has chronic delirium with possible underlying dementia. Difficult to test for dementia as he does not tlk much, does not answer question. She did not feel he has a primary psychiatric disorder however very difficult to be certain as he does not say much so she could not say for certain if he was having hallucinations. Most of the symptoms and features were given by the . She recommended to increase the seroquel to 75 mg at night and continue the others. Spoke with Dr Murillo on 09/19/20 who was microelectronics engineer he reccomended to start patient on haldol 0.5 po daily and keep christine 1 mg IV prn order and continue all the other medications. seroquel (25+75), zoloft 100, temazepam 15 mg No signs of acute infectious process. AZUCENA on CKD baseline cretinine around 2.0 he was recently started on Lasix by Dr Giles as he was fluid overloaded. reports that the swelling has gone down. Also he has been having poor oral intake in past 2 weeks along with some ongoing diarrhea given gentle hydration with Creatinine still above baseline CT abdomen had show some hydronephrosis in the transplant so cote was placed Creatinine now at baseline. 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 continue immunosuppressants as per home. cont cote HTN amlodipine, coreg Hyperuricemia/gout allopurinol Skin rash with severe itching after the vaccine. triamcinolone, benadryl cream and atarax CAD s/p stents asa, statin, coreg. Plan/VTE VTE Prophylaxis Ordered?: Yes VS, I&O, 24H, Fishbone Vital Signs/I&O Vital Signs Date Time Temp Pulse Resp B/P (MAP) Pulse Ox O2 Delivery O2 Flow Rate FiO2 09/20/20 06:00 98.7 68 16 154/76 (102) 94 Room Air I&O- Last 24 Hours up to 6 AM 09/20/20 06:00 Intake Total 420 ml Output Total 1050 ml Balance -630 ml Laboratory Data 24H LABS Laboratory Tests 2 09/20/20 05:27: Immature Granulocyte % (Auto) 0.7, Neutrophils (%) (Auto) 72.9H, Lymphocytes (%) (Auto) 15.1L, Monocytes (%) (Auto) 7.3, Eosinophils (%) (Auto) 3.7H, Basophils (%) (Auto) 0.3, Neutrophils # (Auto) 6.5, Lymphocytes # (Auto) 1.3L, Monocytes # (Auto) 0.7, Eosinophils # (Auto) 0.3, Basophils # (Auto) 0.0, Nucleated Red Blood Cells % (auto) 0.0, Anion Gap 4L, Glomerular Filtration Rate 32.3L, Calcium Level 9.3 CBC/BMP Laboratory Tests 09/20/20 05:27 Microbiology Microbiology 09/16/20 Blood Culture - Preliminary, Resulted No Growth after 72 hours. All specime... 09/16/20 Blood Culture - Preliminary, Resulted No Growth after 72 hours. All specime... NADINE STRICKLAND MD Sep 20, 2020 08:56
[2020-09-20] MEDS: haloperidoL 0.5 MG TAB PO SCH (10:18)
[2020-09-20] MEDS: QUEtiapine FUMARATE 25 MG TAB PO SCH ×2 (10:19→21:01)
[2020-09-20] MEDS: OMEPRAZOLE 20 MG CAP PO SCH (10:19)
[2020-09-20] MEDS: ASPIRIN 81MG ENTERIC TABLET PO SCH (10:20)
[2020-09-20] MEDS: TAMSULOSIN 0.4 MG CAP PO SCH (10:20)
[2020-09-20] MEDS: allopurinoL 100 MG TAB PO SCH (10:20)
[2020-09-20] MEDS: CARVedilol 12.5 MG TAB PO SCH ×2 (10:21→21:01)
[2020-09-20] MEDS: SERTRALINE 100 MG TAB PO SCH (10:21)
[2020-09-20] MEDS: TACROLIMUS 0.5 MG CAP PO SCH ×2 (10:22→20:57)
[2020-09-20] MEDS: predniSONE 5 MG TAB PO SCH (10:22)
[2020-09-20] MEDS: MYFORTIC 180 MG PO SCH ×2 (10:23→20:57)
[2020-09-20] MEDS: TRIAMCINOLONE ACET 0.1% CREAM 80 GM TOP SCH ×2 (10:33→21:02)
[2020-09-20 14:00] VITALS: BP 148/80
[2020-09-20] MEDS: hydrOXYzine 10 MG TAB PO PRN (18:09)
[2020-09-20] MEDS: diphenhydrAMINE CREAM 30GM TOP PRN (18:10)
[2020-09-20] MEDS: TEMAZEPAM 15 MG CAP PO SCH (20:57)
[2020-09-20] MEDS: amLODIPine 5 MG TAB PO SCH (21:01)
[2020-09-20] MEDS: ATORVASTATIN 20 MG TAB PO SCH (21:01)
[2020-09-20 22:00] VITALS: BP 147/79
--- NOTE | 2020-09-20 22:21 | IPN ---
NEPHROLOGY PROGRESS NOTE DATE: 09/20/2020 SUBJECTIVE: Patient was seen and examined at the bedside today morning. He has a one-to-one sitter in the room. Patient's renal function is significantly better after placement of Soto catheter. Creatinine is improved to 2.1 now. Patient is still minimally verbal. He does not want to communicate, answers few questions with one word answers. OBJECTIVE: VITAL SIGNS: Temperature 99.5 degrees Fahrenheit, blood pressure 148/80, pulse 62, respiratory rate 17, saturating 97% on room air. INTAKE/OUTPUT: Urine output recorded as 900 mL yesterday and 300 mL so far today since overnight. Weight in the bed scale is not available. PHYSICAL EXAMINATION: GENERAL: Patient is awake, alert, oriented x2, lying in bed in no apparent distress. HEAD AND NECK: Extraocular muscles intact. Pupils equally round and reactive to light. Mucous membranes are moist. Neck is supple. There is no JVD. CARDIOVASCULAR: S1, S2, regular rate. No edema of the bilateral lower extremities. Right forearm AV fistula is noted. RESPIRATORY: Chest is clear to auscultation bilaterally. Bilateral equal air entry. No rales or rhonchi. ABDOMEN: Soft, positive bowel sounds, nontender. Left lower quadrant renal allograft is palpable and nontender. GENITOURINARY: He has an indwelling Soto catheter. MUSCULOSKELETAL: No clubbing or cyanosis. Pulses are 2+. SKEIN YARD DRIER: No focal deficit. Power is 5/5 in all extremities. LABORATORY REVIEW: CBC showed WBC 8.9, hemoglobin 12.2, platelets 100,000. BMP showed sodium 143, potassium 4.1, chloride 110, bicarb 29, BUN 27, creatinine 2.1; it was 2.2 yesterday. CURRENT INPATIENT MEDICATIONS: Patient's medications were all reviewed by myself. No significant change in the medications today as compared with yesterday. ASSESSMENT AND PLAN: 1. Acute renal failure superimposed on chronic kidney disease: It was secondary to hydronephrosis and urinary retention. Patient's renal function has improved back to baseline with Soto catheter placement. Continue Flomax at this time. 2. Large lower pole renal allograft cyst: Patient will need to be evaluated by interventional radiology in [facility] where he got his transplant done. The cyst needs to be aspirated because it is big enough that it is pushing on the renal pelvis. 3. Renal allograft status: Continue current dose of Myfortic, prednisone and Tacrolimus. 4. Hypertension: Blood pressure is controlled with current dose of Amlodipine and Coreg. 5. Altered mental status and behavioral changes: Patient is being seen by Dr. Grace. Currently he is on Temazepam, Zoloft, Seroquel and p.r.n. Haldol.
[2020-09-21 06:00] VITALS: BP 146/79
[2020-09-21 06:19] LABS: BASO % 0.2 % (0.0-1.0); EOS # 0.2 10^3/uL (0.0-0.5); EOS % 2.6 % (0.0-3.0); HEMATOCRIT 35.9 % (42.0-52.0); HEMOGLOBIN 11.5 g/dl (13.5-17.5); LYMPH # 1.3 10^3/uL (1.5-5.0); LYMPH % 16.4 % (24.0-44.0); MEAN CORPUSCULAR HEMOGLOBIN 29.9 pg (27.0-33.0); MEAN CORPUSCULAR VOLUME 93.2 fl (80.0-96.0); MONO # 0.6 10^3/uL (0.0-0.8); MONO % 7.2 % (2.0-8.0); NEUTROPHILS # 5.9 10^3/uL (1.5-8.5); NEUTROPHILS % 73.1 % (36.0-66.0); RED BLOOD COUNT 3.85 10^6/uL (4.30-6.10); WHITE BLOOD COUNT 8.1 10^3/uL (4.0-10.0)
[2020-09-21 06:24] LABS: PLATELET COUNT, AUTOMATED 87 10^3/uL (150-450)
[2020-09-21 06:44] LABS: CALCIUM LEVEL 8.9 MG/DL (8.8-10.2); CREATININE FOR GFR 2.32 MG/DL (0.70-1.30); GLOMERULAR FILTRATION RATE 30.2 (>49)
[2020-09-21] MEDS: predniSONE 5 MG TAB PO SCH (09:29)
[2020-09-21] MEDS: CARVedilol 12.5 MG TAB PO SCH ×2 (09:29→20:05)
[2020-09-21] MEDS: haloperidoL 0.5 MG TAB PO SCH (09:29)
[2020-09-21] MEDS: allopurinoL 100 MG TAB PO SCH (09:29)
[2020-09-21] MEDS: ASPIRIN 81MG ENTERIC TABLET PO SCH (09:29)
[2020-09-21] MEDS: SERTRALINE 100 MG TAB PO SCH (09:29)
[2020-09-21] MEDS: TAMSULOSIN 0.4 MG CAP PO SCH (09:29)
[2020-09-21] MEDS: TACROLIMUS 0.5 MG CAP PO SCH ×2 (09:29→20:04)
[2020-09-21] MEDS: QUEtiapine FUMARATE 25 MG TAB PO SCH ×2 (09:29→20:05)
[2020-09-21] MEDS: OMEPRAZOLE 20 MG CAP PO SCH (09:29)
[2020-09-21] MEDS: MYFORTIC 180 MG PO SCH ×2 (09:30→20:06)
[2020-09-21] MEDS: TRIAMCINOLONE ACET 0.1% CREAM 80 GM TOP SCH ×2 (09:31→20:06)
--- NOTE | 2020-09-21 11:24 | IPNPDOC ---
Subjective Date Seen The patient was seen on 09/21/20. Subjective Chief Complaint/HPI Talking more today. Said a few full sentences. Says " I just want to go home". " I don't have an appetite." "Had 2 bites of Ham sandwich". Objective Physical Examination General Exam: Positive: Alert, Cooperative, No Acute Distress, Other (few words) ENT Exam: Positive: Atraumatic, Mucous membr. moist/pink, Pharynx Normal Chest Exam: Positive: Clear to auscultation, Normal air movement Heart Exam: Positive: Rate Normal, Regular Rhythm, Normal S1, Normal S2; Negative: Murmurs, Rubs Telemetry: Positive: No significant arrhythmia Abdomen Exam: Positive: Normal bowel sounds, Soft; Negative: Tenderness, Hepatospenomegaly Extremity Exam: Negative: Clubbing, Cyanosis, Edema Skin Exam: Positive: Rash (dry with small red papular rash over the back and upper part of chest) Neuro Exam: Positive: Other (slow words) Psych Exam: Positive: Other (aphathic, no eye contact, flat affect. 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 This reports started after the second dose of COVID vaccine along with diarrhea and a skin rash. Acute on chronic delirium with possible underlying dementia decompensated. Needed haldol IV and po. decompensation could have been due to COVID vaccine administration leading to skin rash and itching, poor sleep, diarrhea, poor oral intake, leading to AZUCENA on CKD. Spoke with Dr Grace on 09/18/20 she felt last year Patient has chronic delirium with possible underlying dementia. Difficult to test for dementia as he does not tlk much, does not answer question. She did not feel he has a primary psychiatric disorder however very difficult to be certain as he does not say much so she could not say for certain if he was having hallucinations. Most of the symptoms and features were given by the . She recommended to increase the seroquel to 75 mg at night and continue the others. Spoke with Dr Murillo on 09/19/20 who was middle school combination teacher he recommended to start patient on haldol 0.5 po daily and keep the 1 mg IV prn order and continue all the other medications. seroquel (25+75), zoloft 100, temazepam 15 mg No signs of acute infectious process. AZUCENA on CKD baseline creatinine around 2.0 he was recently started on Lasix by Dr Giles as he was fluid overloaded. reports that the swelling has gone down. Also he has been having poor oral intake in past 2 weeks along with some ongoing diarrhea given gentle hydration with Creatinine still above baseline CT abdomen had show some hydronephrosis in the transplant so cote was placed Creatinine now at baseline. 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 continue immunosuppressants as per home. HTN amlodipine, coreg Hyperuricemia/gout allopurinol Skin rash with severe itching after the vaccine. triamcinolone, benadryl cream and atarax CAD s/p stents asa, statin, coreg. Plan/VTE VTE Prophylaxis Ordered?: Yes VS, I&O, 24H, Fishbone Vital Signs/I&O Vital Signs Date Time Temp Pulse Resp B/P (MAP) Pulse Ox O2 Delivery O2 Flow Rate FiO2 09/21/20 09:29 61 150/70 09/21/20 06:00 98.5 17 97 Room Air I&O- Last 24 Hours up to 6 AM 09/21/20 06:00 Intake Total 500 ml Output Total 0 ml Balance 500 ml Laboratory Data 24H LABS Laboratory Tests 2 09/21/20 05:59: Immature Granulocyte % (Auto) 0.5, Neutrophils (%) (Auto) 73.1H, Lymphocytes (%) (Auto) 16.4L, Monocytes (%) (Auto) 7.2, Eosinophils (%) (Auto) 2.6, Basophils (%) (Auto) 0.2, Neutrophils # (Auto) 5.9, Lymphocytes # (Auto) 1.3L, Monocytes # (Auto) 0.6, Eosinophils # (Auto) 0.2, Basophils # (Auto) 0.0, Nucleated Red Blood Cells % (auto) 0.0, Immature Platelet Fraction 1.7, Anion Gap 7L, Glomerular Filtration Rate 30.2L, Calcium Level 8.9 CBC/BMP Laboratory Tests 09/21/20 05:59 Microbiology Microbiology 09/16/20 Blood Culture - Preliminary, Resulted No Growth after 72 hours. All specime... 09/16/20 Blood Culture - Preliminary, Resulted No Growth after 72 hours. All specime... NADINE STRICKLAND MD Sep 21, 2020 11:24
[2020-09-21 14:00] VITALS: BP 140/79
[2020-09-21] MEDS: hydrOXYzine 10 MG TAB PO PRN (16:20)
[2020-09-21] MEDS: ACETAMINOPHEN TAB 650MG DOSE (2X325MG) PO PRN (16:20)
[2020-09-21] MEDS: ATORVASTATIN 20 MG TAB PO SCH (20:06)
[2020-09-21] MEDS: TEMAZEPAM 15 MG CAP PO SCH (20:06)
[2020-09-21] MEDS: amLODIPine 5 MG TAB PO SCH (20:06)
[2020-09-21 22:00] VITALS: BP 115/74
--- NOTE | 2020-09-21 23:25 | IPN ---
NEPHROLOGY PROGRESS NOTE DATE: 09/21/2020 SUBJECTIVE: Patient was seen and examined at the bedside today morning. He is afebrile, hemodynamically stable. His renal function is slightly worse today. Creatinine has bumped up from 2.1 to 2.3 today. He is answering the questions and is interested in talking today. OBJECTIVE: VITAL SIGNS: Temperature 98 degrees Fahrenheit, blood pressure 140/79, pulse 68, respiratory rate 20, saturating 96% on room air. INTAKE/OUTPUT: Urine output recorded as 300 mL yesterday. Weight in the bed scale is not available. PHYSICAL EXAMINATION: GENERAL: Patient is awake, alert, oriented x3, lying in bed in no apparent distress. HEAD AND NECK: Extraocular muscles intact. Pupils equally round and reactive to light. Mucous membranes are moist. Neck is supple. There is no JVD. CARDIOVASCULAR: S1, S2, regular rate. No edema of the bilateral lower extremities. RESPIRATORY: Chest is clear to auscultation bilaterally. Bilateral equal air entry. No rales or rhonchi. ABDOMEN: Soft, positive bowel sounds. Patient has suprapubic discomfort in the left-sided renal allograft area. Bladder is palpable in the suprapubic region as well. MUSCULOSKELETAL: No clubbing or cyanosis. Pulses are 2+. PENCIL MAKER: No focal deficit. Power is 5/5 in all extremities. LABORATORY REVIEW: CBC showed WBC 8.1, hemoglobin 11.5, platelets 87,000. BMP showed sodium 142, potassium 4, chloride 108, bicarb 27, BUN 29, creatinine 2.3; it was 2.1 yesterday. CURRENT INPATIENT MEDICATIONS: Patient's medications were all reviewed by myself. No significant change in the medications today as compared with yesterday. ASSESSMENT AND PLAN: 1. Acute renal failure superimposed on chronic kidney disease: It was secondary to urinary retention. Patient had a Soto catheter placed and with that creatinine improved to 2.1. Soto was removed yesterday. Creatinine has bumped up to 2.3 again. Continue to monitor for now. I am going to start the patient's bladder scan every 8 hours as well. 2. Large lower pole renal allograft cyst: Patient would need to have the cyst aspirated by interventional radiology in [place] once he is discharged. 3. Renal allograft status: Continue Myfortic, prednisone and Tacrolimus. 4. Hypertension: Blood pressure is controlled with Coreg and Amlodipine. 5. Behavioral changes and altered mental status: Patient is currently on Zoloft, Temazepam, Seroquel and as needed Haldol.
[2020-09-22 06:00] VITALS: BP 128/64
[2020-09-22 06:44] LABS: BASO % 0.2 % (0.0-1.0); EOS # 0.3 10^3/uL (0.0-0.5); EOS % 3.4 % (0.0-3.0); HEMATOCRIT 35.8 % (42.0-52.0); HEMOGLOBIN 11.8 g/dl (13.5-17.5); LYMPH % 11.8 % (24.0-44.0); MEAN CORPUSCULAR HEMOGLOBIN 30.1 pg (27.0-33.0); MEAN CORPUSCULAR VOLUME 91.3 fl (80.0-96.0); MONO # 0.6 10^3/uL (0.0-0.8); NEUTROPHILS # 6.3 10^3/uL (1.5-8.5); NEUTROPHILS % 77.1 % (36.0-66.0); PLATELET COUNT, AUTOMATED 86 10^3/uL (150-450); RED BLOOD COUNT 3.92 10^6/uL (4.30-6.10); WHITE BLOOD COUNT 8.2 10^3/uL (4.0-10.0)
[2020-09-22 07:20] LABS: CALCIUM LEVEL 9.1 MG/DL (8.8-10.2); CREATININE FOR GFR 2.36 MG/DL (0.70-1.30); GLOMERULAR FILTRATION RATE 29.6 (>49); POTASSIUM SERUM 3.5 MEQ/L (3.5-5.1)
[2020-09-22] MEDS: TAMSULOSIN 0.4 MG CAP PO SCH (10:32)
[2020-09-22] MEDS: haloperidoL 0.5 MG TAB PO SCH (10:32)
[2020-09-22] MEDS: allopurinoL 100 MG TAB PO SCH (10:33)
[2020-09-22] MEDS: ASPIRIN 81MG ENTERIC TABLET PO SCH (10:33)
[2020-09-22] MEDS: TACROLIMUS 0.5 MG CAP PO SCH ×2 (10:33→20:05)
[2020-09-22] MEDS: SERTRALINE 100 MG TAB PO SCH (10:33)
[2020-09-22] MEDS: OMEPRAZOLE 20 MG CAP PO SCH (10:33)
[2020-09-22] MEDS: predniSONE 5 MG TAB PO SCH (10:34)
[2020-09-22] MEDS: CARVedilol 12.5 MG TAB PO SCH ×2 (10:34→20:05)
[2020-09-22] MEDS: QUEtiapine FUMARATE 25 MG TAB PO SCH ×2 (10:34→20:04)
[2020-09-22] MEDS: MYFORTIC 180 MG PO SCH ×2 (10:35→20:05)
[2020-09-22] MEDS: TRIAMCINOLONE ACET 0.1% CREAM 80 GM TOP SCH ×2 (10:39→20:05)
[2020-09-22] MEDS: diphenhydrAMINE CREAM 30GM TOP PRN (10:39)
--- NOTE | 2020-09-22 11:52 | IPNPDOC ---
Subjective Date Seen The patient was seen on 09/22/20. Subjective Chief Complaint/HPI Talking a little more in full sentences, No appetite, says does not sleep well at night. Wants to go home. ordered for bladder scan q 8 hours. Objective Physical Examination General Exam: Positive: Alert, Cooperative, No Acute Distress, Other (few words) ENT Exam: Positive: Atraumatic, Mucous membr. moist/pink, Pharynx Normal Chest Exam: Positive: Clear to auscultation, Normal air movement Heart Exam: Positive: Rate Normal, Regular Rhythm, Normal S1, Normal S2; Negative: Murmurs, Rubs Telemetry: Positive: No significant arrhythmia Abdomen Exam: Positive: Normal bowel sounds, Soft; Negative: Tenderness, Hepatospenomegaly Extremity Exam: Negative: Clubbing, Cyanosis, Edema Skin Exam: Positive: Rash (dry with small red papular rash over the back and upper part of chest) Neuro Exam: Positive: Other (slow words) Psych Exam: Positive: Other (aphathic, no eye contact, flat affect. 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 This reports started after the second dose of COVID vaccine along with diarrhea and a skin rash. Acute on chronic delirium with possible underlying dementia decompensated. Needed haldol IV and po. decompensation could have been due to COVID vaccine administration leading to skin rash and itching, poor sleep, diarrhea, poor oral intake, AZUCENA on CKD. Spoke with Dr Grace on 09/18/20 she felt last year Patient has chronic delirium with possible underlying dementia. Difficult to test for dementia as he does not tlk much, does not answer question. She did not feel he has a primary psychiatric disorder however very difficult to be certain as he does not say much so she could not say for certain if he was having hallucinations. Most of the symptoms and features were given by the . She recommended to increase the seroquel to 75 mg at night and continue the others. Spoke with Dr Murillo on 09/19/20 who was button station worker he recommended to start patient on haldol 0.5 po daily and keep the 1 mg IV prn order and continue all the other medications. seroquel (25+75), zoloft 100, temazepam 15 mg No signs of acute infectious process. AZUCENA on CKD baseline creatinine around 2.0 likely due to obstructive uropathy CT abdomen had show some hydronephrosis in the transplant so cote was placed with improved creatinine Has a large cyst in the lower pole of the transplant kidney which may be causing obstruction. This needs to be drained as outpatient by IR in [place]. creatinine again going up after removal of cote Dr Cannon is following Chronic Thrombocytopenia not on heparin. Lowest in prior admission was in 60K Renal transplant status with allograft nephropathy with urinary retention. continue immunosuppressants as per home. HTN amlodipine, coreg Hyperuricemia/gout allopurinol Skin rash with severe itching after the vaccine. triamcinolone, benadryl cream and atarax CAD s/p stents asa, statin, coreg. Plan/VTE VTE Prophylaxis Ordered?: Yes VS, I&O, 24H, Fishbone Vital Signs/I&O Vital Signs Date Time Temp Pulse Resp B/P (MAP) Pulse Ox O2 Delivery O2 Flow Rate FiO2 09/22/20 10:34 62 158/81 09/22/20 06:00 98.2 18 97 Room Air I&O- Last 24 Hours up to 6 AM 09/22/20 06:00 Intake Total 660 ml Output Total 200 ml Balance 460 ml Laboratory Data 24H LABS Laboratory Tests 2 09/22/20 06:18: Immature Granulocyte % (Auto) 0.5, Neutrophils (%) (Auto) 77.1H, Lymphocytes (%) (Auto) 11.8L, Monocytes (%) (Auto) 7.0, Eosinophils (%) (Auto) 3.4H, Basophils (%) (Auto) 0.2, Neutrophils # (Auto) 6.3, Lymphocytes # (Auto) 1.0L, Monocytes # (Auto) 0.6, Eosinophils # (Auto) 0.3, Basophils # (Auto) 0.0, Nucleated Red Blood Cells % (auto) 0.0, Immature Platelet Fraction 2.2, Anion Gap 7L, Glomerular Filtration Rate 29.6L, Calcium Level 9.1 CBC/BMP Laboratory Tests 09/22/20 06:18 Microbiology Microbiology 09/16/20 Blood Culture - Final, Complete NO GROWTH AFTER 5 DAYS 09/16/20 Blood Culture - Final, Complete NO GROWTH AFTER 5 DAYS NADINE STRICKLAND MD Sep 22, 2020 11:52
[2020-09-22] MEDS: FINASTERIDE 5 MG TAB PO SCH (12:27)
[2020-09-22 14:00] VITALS: BP 148/53
[2020-09-22] MEDS: hydrOXYzine 10 MG TAB PO PRN (19:26)
[2020-09-22] MEDS: ATORVASTATIN 20 MG TAB PO SCH (20:03)
[2020-09-22] MEDS: TEMAZEPAM 15 MG CAP PO SCH (20:05)
[2020-09-22] MEDS: amLODIPine 5 MG TAB PO SCH (20:05)
[2020-09-22 22:00] VITALS: BP 149/83
[2020-09-23] MEDS: ACETAMINOPHEN TAB 650MG DOSE (2X325MG) PO PRN ×2 (03:01→21:59)
[2020-09-23 03:03] VITALS: BP 156/86
[2020-09-23] MEDS: HALOPERIDOL 5MG/ML VIAL (J1630 PER 1) IV PRN (04:05)
[2020-09-23 06:00] VITALS: BP 140/83
[2020-09-23 07:06] LABS: BASO % 0.2 % (0.0-1.0); EOS # 0.2 10^3/uL (0.0-0.5); EOS % 2.6 % (0.0-3.0); HEMATOCRIT 32.3 % (42.0-52.0); HEMOGLOBIN 10.6 g/dl (13.5-17.5); LYMPH # 1.1 10^3/uL (1.5-5.0); MEAN CORPUSCULAR HEMOGLOBIN 29.8 pg (27.0-33.0); MEAN CORPUSCULAR HGB CONC 32.8 g/dl (32.0-36.5); MEAN CORPUSCULAR VOLUME 90.7 fl (80.0-96.0); MONO # 0.8 10^3/uL (0.0-0.8); MONO % 8.5 % (2.0-8.0); NEUTROPHILS % 76.2 % (36.0-66.0); RED BLOOD COUNT 3.56 10^6/uL (4.30-6.10); WHITE BLOOD COUNT 9.2 10^3/uL (4.0-10.0)
[2020-09-23 07:21] LABS: CALCIUM LEVEL 8.7 MG/DL (8.8-10.2); CREATININE FOR GFR 2.27 MG/DL (0.70-1.30); POTASSIUM SERUM 3.7 MEQ/L (3.5-5.1)
[2020-09-23 07:25] LABS: PLATELET COUNT, AUTOMATED 93 10^3/uL (150-450)
[2020-09-23] MEDS: SERTRALINE 100 MG TAB PO SCH (07:57)
[2020-09-23] MEDS: haloperidoL 0.5 MG TAB PO SCH (07:58)
[2020-09-23] MEDS: QUEtiapine FUMARATE 25 MG TAB PO SCH (07:58)
[2020-09-23] MEDS: HALOPERIDOL 5MG/ML VIAL (J1630 PER 1) IM PRN ×2 (09:22→13:27)
[2020-09-23] MEDS: CARVedilol 12.5 MG TAB PO SCH ×2 (09:26→21:59)
[2020-09-23] MEDS: FINASTERIDE 5 MG TAB PO SCH (09:27)
[2020-09-23] MEDS: OMEPRAZOLE 20 MG CAP PO SCH (09:27)
[2020-09-23] MEDS: ASPIRIN 81MG ENTERIC TABLET PO SCH (09:27)
[2020-09-23] MEDS: TACROLIMUS 0.5 MG CAP PO SCH ×2 (09:27→21:54)
[2020-09-23] MEDS: TAMSULOSIN 0.4 MG CAP PO SCH (09:27)
[2020-09-23] MEDS: allopurinoL 100 MG TAB PO SCH (09:27)
[2020-09-23] MEDS: predniSONE 5 MG TAB PO SCH (09:27)
[2020-09-23] MEDS: TRIAMCINOLONE ACET 0.1% CREAM 80 GM TOP SCH ×2 (09:28→22:01)
[2020-09-23] MEDS: diphenhydrAMINE CREAM 30GM TOP PRN (09:28)
[2020-09-23] MEDS: MYFORTIC 180 MG PO SCH ×2 (09:29→21:53)
--- NOTE | 2020-09-23 11:16 | IPNPDOC ---
Subjective Date Seen The patient was seen on 09/23/20. Subjective Chief Complaint/HPI Restless all night. Pacing the halls. Had a fever of 101 at night. This morning water his friend Avni at the [employer] to be called. He is talking a few sentences. Will need sitter. Needed haldol last night. Objective Physical Examination General Exam: Positive: Alert, Cooperative, No Acute Distress, Other (few words) ENT Exam: Positive: Atraumatic, Mucous membr. moist/pink, Pharynx Normal Chest Exam: Positive: Clear to auscultation, Normal air movement Heart Exam: Positive: Rate Normal, Regular Rhythm, Normal S1, Normal S2; Negative: Murmurs, Rubs Telemetry: Positive: No significant arrhythmia Abdomen Exam: Positive: Normal bowel sounds, Soft; Negative: Tenderness, Hepatospenomegaly Extremity Exam: Negative: Clubbing, Cyanosis, Edema Skin Exam: Positive: Rash (dry with small red papular rash over the back and upper part of chest) Neuro Exam: Positive: Other (slow words) Psych Exam: Positive: Other (aphathic, no eye contact, flat affect. 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 This reports started after the second dose of COVID vaccine along with diarrhea and a skin rash. New Fever will send ua Had recent catheterization. Acute on chronic delirium with possible underlying dementia decompensated. Needing haldol IV/ IM and po. decompensation could have been due to COVID vaccine administration leading to skin rash and itching, poor sleep, diarrhea, poor oral intake, AZUCENA on CKD. Spoke with Dr Grace on 09/18/20 she felt last year Patient has chronic delirium with possible underlying dementia. Difficult to test for dementia as he does not tlk much, does not answer question. She did not feel he has a primary psychiatric disorder however very difficult to be certain as he does not say much so she could not say for certain if he was having hallucinations. Most of the symptoms and features were given by the . She recommended to increase the seroquel to 75 mg at night and continue the others. Spoke with Dr Murillo on 09/19/20 who was consulting technical director he recommended to start patient on haldol 0.5 po daily and keep the 1 mg IV prn order and continue all the other medications. seroquel (25+75), zoloft 100, temazepam 15 mg No signs of acute infectious process. AZUCENA on CKD baseline creatinine around 2.0 likely due to obstructive uropathy CT abdomen had show some hydronephrosis in the transplant so cote was placed with improved creatinine Has a large cyst in the lower pole of the transplant kidney which may be causing obstruction. This needs to be drained as outpatient by IR in [place]. Dr Cannon is following Chronic Thrombocytopenia not on heparin. Lowest in prior admission was in 60K Renal transplant status with allograft nephropathy with urinary retention. continue immunosuppressants as per home. HTN amlodipine, coreg Hyperuricemia/gout allopurinol Skin rash with severe itching after the vaccine. triamcinolone, benadryl cream and atarax CAD s/p stents asa, statin, coreg. Plan/VTE VTE Prophylaxis Ordered?: Yes VS, I&O, 24H, Fishbone Vital Signs/I&O Vital Signs Date Time Temp Pulse Resp B/P (MAP) Pulse Ox O2 Delivery O2 Flow Rate FiO2 09/23/20 09:26 81 134/84 09/23/20 09:00 98.0 09/23/20 06:00 16 97 Room Air I&O- Last 24 Hours up to 6 AM 09/23/20 06:00 Intake Total 1080 ml Output Total 1500 ml Balance -420 ml Laboratory Data 24H LABS Laboratory Tests 2 09/23/20 06:44: Immature Granulocyte % (Auto) 0.5, Neutrophils (%) (Auto) 76.2H, Lymphocytes (%) (Auto) 12.0L, Monocytes (%) (Auto) 8.5H, Eosinophils (%) (Auto) 2.6, Basophils (%) (Auto) 0.2, Neutrophils # (Auto) 7.0, Lymphocytes # (Auto) 1.1L, Monocytes # (Auto) 0.8, Eosinophils # (Auto) 0.2, Basophils # (Auto) 0.0, Nucleated Red Blood Cells % (auto) 0.0, Immature Platelet Fraction 1.3, Anion Gap 7L, Glomerular Filtration Rate 31.0L, Calcium Level 8.7L CBC/BMP Laboratory Tests 09/23/20 06:44 Microbiology Microbiology 09/16/20 Blood Culture - Final, Complete NO GROWTH AFTER 5 DAYS 09/16/20 Blood Culture - Final, Complete NO GROWTH AFTER 5 DAYS NADINE STRICKLAND MD Sep 23, 2020 11:16
[2020-09-23 14:00] VITALS: BP 127/77
[2020-09-23] MEDS ORDERED: LORazepam 2 MG/ML VIAL IV PRN (15:45)
[2020-09-23] MEDS ORDERED: HALOPERIDOL 5MG/ML VIAL (J1630 PER 1) IV PRN (15:45)
--- NOTE | 2020-09-23 19:52 | REP ---
INDICATION: Recurrent urine retention,Bladder diverticulum. Lt Renal Tx. COMPARISON: None TECHNIQUE: Real time B-mode ultrasound examination using curved array transducer. FINDINGS: Bladder demonstrates mild somewhat irregular circumferential bladder wall thickening to approximately 4.5 mm along with large left bladder diverticulum. Prevoid bladder measures 7.0 x 5.5 x 7.6 cm (191 cc) Postvoid bladder measures 7.3 x 6.2 x 4.7 cm (139 cc) Postvoid residual: 73% IMPRESSION: 1. Chronic bladder wall thickening and large left bladder diverticulum causing incomplete emptying and significant postvoid residual volume. <Electronically signed by Eder Rojas > 09/23/201948
[2020-09-23] MEDS ORDERED: haloperidoL 0.5 MG TAB PO SCH (21:00)
[2020-09-23 22:00] VITALS: BP 157/88
[2020-09-23] MEDS: amLODIPine 5 MG TAB PO SCH (22:00)
--- NOTE | 2020-09-23 22:30 | IPN ---
NEPHROLOGY PROGRESS NOTE DATE: 09/23/2020 SUBJECTIVE: Patient was seen and examined at the bedside today morning. Patient was walking with his in the hallways today morning. His renal function is stable. Creatinine is 2.2 today. His bladder ultrasound was done yesterday; official report is pending, however, his distended bladder with left-sided diverticulum and renal cyst is present on the ultrasound. OBJECTIVE: VITAL SIGNS: Temperature 98.2 degrees Fahrenheit, blood pressure 127/77, pulse 71, respiratory rate 16, saturating 97% on room air. INTAKE/OUTPUT: Urine output recorded as 1.5 liters yesterday and 125 mL so far today. Weight in the bed scale is not available. PHYSICAL EXAMINATION: GENERAL: Patient is awake, alert, oriented x2, sitting up in bed in no apparent distress. HEAD AND NECK: Extraocular muscles intact. Pupils equally round and reactive to light. Mucous membranes are moist. Neck is supple. There is no JVD. CARDIOVASCULAR: S1, S2, regular rate. No edema of the bilateral lower extremities. RESPIRATORY: Chest is clear to auscultation bilaterally. Bilateral equal air entry. No rales or rhonchi. ABDOMEN: Soft, positive bowel sounds. Mild suprapubic discomfort on deep palpation. MUSCULOSKELETAL: No clubbing or cyanosis. Pulses are 2+. CASE MGR: No focal deficit. Power is 5/5 in all extremities. LABORATORY REVIEW: CBC showed WBC 9.2, hemoglobin 10.6, platelets 93,000. BMP showed sodium 139, potassium 3.7, chloride 107, bicarb 25, BUN 31, creatinine 2.2. CURRENT INPATIENT MEDICATIONS: Patient's medications were all reviewed by myself. His Haloperidol has been changed to 0.5 mg p.o. twice a day. No other significant change in the medications. ASSESSMENT AND PLAN: 1. Acute renal failure superimposed on chronic kidney disease: It was secondary to urinary retention. Patient is on Flomax and Finasteride. Renal function is stable at 2.2 today. 2. Lower pole renal allograft cyst: Patient would need to see IR at [facility] as an outpatient once he is discharged. 3. Renal allograft status: Continue Tacrolimus, prednisone and Myfortic. 4. Hypertension: Continue Amlodipine and Coreg. 5. Altered mental status and behavioral changes: Antipsychotic and antidepressant medications are as per psychiatry service.
[2020-09-24 06:00] VITALS: BP 157/86
[2020-09-24] MEDS ORDERED: CIPROFLOXACIN 500MG TABLET PO SCH (06:00)
--- NOTE | 2020-09-24 08:05 | IPNPDOC ---
Subjective Date Seen The patient was seen on 09/24/20. Subjective Chief Complaint/HPI Slept after ativan . When Dr Rosen came to see him he was sedated. Slept most of the night. Awake and cooperative this morning. laying in bed. Complains of headache and neck pain. He has difficulty in moving the head from side to side however was able to touch his chin to chest. Feels very tired and wants to sleep some more. He does say he had neck pain before. Objective Physical Examination General Exam: Positive: Alert, Cooperative, No Acute Distress, Other (few words, intermittently gets agitated and walks the corridors.) ENT Exam: Positive: Atraumatic, Mucous membr. moist/pink, Pharynx Normal Neck Exam: Positive: Other (tenderness at the back and sides of the neck.) Chest Exam: Positive: Clear to auscultation, Normal air movement Heart Exam: Positive: Rate Normal, Regular Rhythm, Normal S1, Normal S2; Negative: Murmurs, Rubs Telemetry: Positive: No significant arrhythmia Abdomen Exam: Positive: Normal bowel sounds, Soft; Negative: Tenderness, Hepatospenomegaly Extremity Exam: Negative: Clubbing, Cyanosis, Edema Psych Exam: Positive: Oriented x 3 Assessment /Plan Assessment 64 year old male with h/o congenital kidney disease with Depression, unspecified psychosis, likely underlying Dementia, following with Dr Grace since last year, 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 This reports started after the second dose of COVID vaccine along with diarrhea and a skin rash. Fever on 09/23/20 Had recent catheterization. also complains of neck pain Ua dirty, will wait for culture. if continues to have fever and neck pain/ stiffness with any new behavioral abnormalities compared to his baseline then will have to discuss about lumber puncture. Acute on chronic delirium with possible underlying dementia but oriented x 3, decompensated severely on 09/23/20. Needing haldol IV/ IM and po. also had to start him on iv ativan. Discussed with Dr Rosen on 09/23/20 he recommended stopping the seroquel, zoloft, temazepam, ativan, haldol ,atarax and all other nonessential meds and allow few days to come off the meds. He did say it could be rough and his delirium could remain very bad but recommended not to use any meds unless he becomes a threat to himself or others. I have stopped all psychotropic meds. will continue only his meds for renal transplant and antihypertensives and meds flomax and finasteride. will use meds only as 1 time order basis he he becomes a harm to himself or others. AZUCENA on CKD baseline creatinine around 2.0 likely due to obstructive uropathy CT abdomen had show some hydronephrosis in the transplant so cote was placed with improved creatinine bladder Us shows Chronic bladder wall thickening and large left bladder diverticulum causing incomplete emptying and significant postvoid residual volume. Also Has a large cyst in the lower pole of the transplant kidney which may be causing obstruction. This needs to be drained as outpatient by IR in [place]. Dr Cannon is following Chronic Thrombocytopenia not on heparin. Lowest in prior admission was in 60K Renal transplant status with allograft nephropathy with urinary retention. continue immunosuppressants as per home. HTN amlodipine, coreg Hyperuricemia/gout allopurinol Skin rash with severe itching after the vaccine. triamcinolone, benadryl cream and atarax CAD s/p stents asa, statin, coreg. Plan/VTE VTE Prophylaxis Ordered?: Yes VS, I&O, 24H, Fishbone Vital Signs/I&O Vital Signs Date Time Temp Pulse Resp B/P (MAP) Pulse Ox O2 Delivery O2 Flow Rate FiO2 09/24/20 06:00 99.5 75 16 157/86 (109) 97 Room Air I&O- Last 24 Hours up to 6 AM 09/24/20 06:00 Intake Total 580 ml Output Total 570 ml Balance 10 ml Laboratory Data 24H LABS Laboratory Tests 2 09/24/20 00:33: Urine Color YELLOW, Urine Appearance CLOUDYH, Urine pH 7.0, Urine Specific Premier 1.014, Urine Protein 2+H, Urine Glucose (UA) NEGATIVE, Urine Ketones TRACEH, Urine Blood 1+H, Urine Nitrite NEGATIVE, Urine Bilirubin NEGATIVE, Urine Urobilinogen 0.2, Urine Leukocyte Esterase 3+H, Urine WBC (Auto) 177H, Urine RBC (Auto) 18H, Urine Hyaline Casts (Auto) 0, Urine Bacteria (Auto) 2+H, Urine Squamous Epithelial Cells 1, Urine Transitional Epithelial Cells 1, Urine Sperm (Auto) Microbiology Microbiology 09/24/20 Urine Culture, Received Pending 09/16/20 Blood Culture - Final, Complete NO GROWTH AFTER 5 DAYS 09/16/20 Blood Culture - Final, Complete NO GROWTH AFTER 5 DAYS NADINE STRICKLAND MD Sep 24, 2020 08:05
--- NOTE | 2020-09-24 08:19 | MHCRPDOC ---
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 As per patient received his second dose of the COVID vaccine 2 weeks ago . After that he started getting quieter, more withdrawn and it seemed like he was getting depressed. She also felt that he may be hearing the voices again. She discussed these changes with Dr Grace 2 weeks ago and changes were made to his medications. His Zoloft was increased from 50 mg to 100 mg his seroquel was increased in that he was started on morning dose of seroquel 12.5 in addition to the evening 50 mg and then it was increased to 25 mg last week. There was not much improvement in his metal state. He was becoming restless at night going up and down. So she spoke with Dr Grace again 2 days ago and was given temazepam 15 mg at bed time . He took 2 doses. Patient also had a rash after the vaccine and he had been scratching himself vigorously sometimes drawing blood. She discussed this with nephro yesterday and they recommended benadryl . He got about 3 doses of benadryl. He also has been having diarrhea about 3 to 4 times a day for past week . He has no appetite for the past 2 weeks where at baseline he is a good eater. Last night he opened the glass window in the kitchen and tried to climb through it to get outside and he would not listen and would not be redirected to something else. He was not aggressive. Today patient just speaks one or 2 words. When i asked why he came to the hospital he said "Head hurts". He answered yes to COVID vaccine. When i asked how he slept last night he answered "Chair". explained that he sleeps in a chair. When i asked if he was having diarrhea he answered yes could not give any clarification. His answers are very delayed and slow. He does not make eye contact. He appears apathic. When asked t sit up he would not even try when i was helping him he was just letting his body go without any trying. He is being admitted for acute metabolic encephalopathy on his chronic psychiatric issues and likely underlying dementia., On my visit, pt was sedated and unable to rouse. I reviewed his medication. He is presently prescribed Haldol 5mg bid, Restoril 15mg hs, Seroquel 75 hs plus 25, Prednisone 5mg daily, Omeprazole, previously Atarax 10mg bid Zoloft 100 qd and received Haldol 2mg im twice and IV Ativan. as above 3 doses Benadryl RELEVANT HISTORY: Above PAST PSYCHIATRIC HISTORY: Not Applicable PAST MEDICAL HISTORY: As above PERSONAL AND SOCIAL HISTORY: The patient was born and raised in [place]. Resides in: [place] Marital Status: M . MENTAL STATUS EXAMINATION: Patient is a 64-year old male, who is sedated on examination but by history of his stay on the floor. He wanders and requires nursing assistance can answer certain questions, but otherwise has a changing, consciousness. Speech is cannot be determined. Language skills are cannot be determined. Thought processes including: To be determined. Thought content: Cannot be determined. Abstract reasoning, and computation:. Cannot be determined Description of associations: Cannot be determined. Description of abnormal or psychotic thoughts: By description only has changing mental status. Judgment: Cannot be determined. Insight: Cannot be determined. Orientation to changing mental status. Recent and remote memory: Apparently disturbed. Attention span and concentration:. Apparently disturbed. Language: Cannot be determined. Fund of knowledge: Cannot be determined. Mood:. Patient's sedated. Affect: Patient's sedated. DIAGNOSIS: 1., By history. Acute encephalopathy. PLAN: 1.. Numerous possible causes of acute encephalopathy. Medications have not diminished his symptoms. Recommendation therefore is to decrease all unnecessary medications except those that are life preserving in order to clear patient's system of any psychotropic medications and reevaluate Vital Signs Vital Signs Date Time Temp Pulse Resp B/P (MAP) Pulse Ox O2 Delivery O2 Flow Rate FiO2 09/23/20 14:00 98.2 71 16 127/77 (94) 97 Room Air Laboratory Data 24H Labs Laboratory Tests 2 09/23/20 06:44: Immature Granulocyte % (Auto) 0.5, Neutrophils (%) (Auto) 76.2H, Lymphocytes (%) (Auto) 12.0L, Monocytes (%) (Auto) 8.5H, Eosinophils (%) (Auto) 2.6, Basophils (%) (Auto) 0.2, Neutrophils # (Auto) 7.0, Lymphocytes # (Auto) 1.1L, Monocytes # (Auto) 0.8, Eosinophils # (Auto) 0.2, Basophils # (Auto) 0.0, Nucleated Red Blood Cells % (auto) 0.0, Immature Platelet Fraction 1.3, Anion Gap 7L, Glomerular Filtration Rate 31.0L, Calcium Level 8.7L Home Medications Current Medications Current Medications Medications (Trade) Dose Ordered Sig/Shanae Route PRN Reason Start Time Stop Time Status Last Admin Dose Admin Acetaminophen (Tylenol Tab) 650 mg Q6HP PRN PO PAIN / FEVER 09/21/20 11:10 09/23/20 03:01 Allopurinol (Zyloprim) 100 mg DAILY PO 09/17/20 09:00 09/23/20 09:27 Amlodipine Besylate (Norvasc) 5 mg QHS PO 09/16/20 21:00 09/22/20 20:05 Aspirin (Ecotrin) 81 mg DAILY PO 09/17/20 09:00 09/23/20 09:27 Atorvastatin Calcium (Lipitor) 40 mg QHS PO 09/16/20 21:00 09/22/20 20:03 Carvedilol (COReg) 12.5 mg BID PO 09/16/20 21:00 09/23/20 09:26 Diphenhydramine HCl (Benadryl Cream) Apply to arms, legs and tr... Q6HP PRN TOP ITCHING 09/17/20 16:20 09/23/20 09:28 Finasteride (Proscar) 5 mg DAILY PO 09/22/20 12:30 09/23/20 09:27 Haloperidol (Haldol) 0.5 mg BID PO 09/23/20 21:00 Haloperidol (Haldol) 0.5 mg DAILY PO 09/20/20 09:00 09/23/20 09:06 DC 09/23/20 07:58 Haloperidol (Haldol) 1 mg Q4HP PRN IV AGITATION 09/23/20 15:45 Haloperidol (Haldol) 1 mg Q6HP PRN IV AGITATION 09/18/20 23:50 09/23/20 09:06 DC 09/23/20 04:05 Haloperidol (Haldol) 2 mg Q4HP PRN IM AGITATION 09/23/20 09:05 09/23/20 15:44 DC 09/23/20 13:27 Home Med (Med Rec Complete!) ASDIRECTED XX 09/16/20 12:25 09/16/20 12:33 DC Hydroxyzine HCl (Atarax) 10 mg Q6HP PRN PO ANXIETY/AGITATION 09/17/20 17:55 09/23/20 09:06 DC 09/22/20 19:26 Lorazepam (Ativan) 2 mg Q4HP PRN IV AGITATION 09/23/20 15:45 09/23/20 16:25 Omeprazole (PriLOSEC) 20 mg DAILY PO 09/17/20 09:00 09/23/20 09:27 Patient Own Medication (Patient'S Own Med) Myfortic [address] bid. BID PO 09/16/20 21:00 09/23/20 09:29 Prednisone (Deltasone) 5 mg DAILY PO 09/17/20 09:00 09/23/20 09:27 Quetiapine Fumarate (SEROquel) 25 mg DAILY PO 09/17/20 09:00 09/23/20 07:58 Quetiapine Fumarate (SEROquel) 50 mg QHS PO 09/16/20 21:00 09/18/20 19:12 DC 09/17/20 20:24 Quetiapine Fumarate (SEROquel) 75 mg QHS PO 09/18/20 21:00 09/22/20 20:04 Sertraline HCl (Zoloft) 100 mg DAILY PO 09/17/20 09:00 09/23/20 07:57 Tacrolimus (Prograf) 0.5 mg BID PO 09/16/20 21:00 09/23/20 09:27 Tamsulosin HCl (Flomax) 0.4 mg DAILY PO 09/18/20 09:00 09/23/20 09:27 Temazepam (Restoril) 15 mg QHS PO 09/16/20 21:15 09/22/20 20:05 Triamcinolone Acetonide (Kenalog 0.1% Cream) TO RASH BID TOP 09/16/20 21:00 09/23/20 09:28 Scheduled Allopurinol (Allopurinol) 100 Mg Tablet, 100 MG PO DAILY, (Reported) Amlodipine Besylate (Amlodipine Besylate) 5 Mg Tablet, 5 MG PO QHS, (Reported) Aspirin (Aspirin EC) 81 Mg Tablet.dr, 81 MG PO DAILY, (Reported) Atorvastatin Calcium (Atorvastatin Calcium) 40 Mg Tablet, 40 MG PO QHS, (Reported) Carvedilol (Carvedilol) 12.5 Mg Tab, 12.5 MG PO BID, (Reported) Cholecalciferol (Vitamin D3) (Vitamin D3) 1,000 Unit Tablet, 2,000 UNITS PO DAILY, (Reported) Furosemide (Furosemide) 20 Mg Tablet, 20 MG PO DAILY, (Reported) Magnesium Oxide (Magnesium Oxide) 500 Mg Capsule, 1,000 MG PO BID, (Reported) Melatonin (Melatonin) 5 Mg Tablet, 5 MG PO QHS, (Reported) Mycophenolate Sodium (Myfortic) 180 Mg Tablet.dr, 180 MG PO BID, (Reported) Omeprazole (Omeprazole) 20 Mg Capsule.dr, 20 MG PO DAILY, (Reported) Prednisone (Prednisone) 5 Mg Tablet, 5 MG PO DAILY, (Reported) Quetiapine Fumarate (Quetiapine Fumarate) 25 Mg Tablet, 25 MG PO DAILY, (Reported) Quetiapine Fumarate (Quetiapine Fumarate) 50 Mg Tablet, 50 MG PO QHS, (Reported) Sertraline Hcl (Zoloft) 100 Mg Tablet, 100 MG PO DAILY, (Reported) Tacrolimus (Tacrolimus) 0.5 Mg Capsule, 0.5 MG PO BID, (Reported) Temazepam (Temazepam) 15 Mg Capsule, 15 MG PO QHS, (Reported) Scheduled PRN Diphenhydramine HCl (Benadryl) 25 Mg Capsule, 25 MG PO Q6H PRN for ITCHING, (Reported) Nitroglycerin (Nitrostat) 0.4 Mg Subl, 0.4 MG SL NITRO PRN for CHEST PAIN, (Reported) Allergies Coded Allergies: codeine (Verified Adverse Reaction, Mild, N/V, 09/16/20) meperidine (Verified Adverse Reaction, Mild, N/V, 09/16/20) morphine (Verified Adverse Reaction, Mild, N/V, 09/16/20) HAS TAKEN MORPHINE WITH ZOFRAN AND TOLERATED WELL oxycodone (Verified Adverse Reaction, Mild, N/V, 09/16/20) uses zofran prior to admin vancomycin (Verified Adverse Reaction, Mild, confusion, 09/16/20) DORITA HESS MD Sep 23, 2020 17:50
[2020-09-24] MEDS: MYFORTIC 180 MG PO SCH ×2 (08:29→21:16)
[2020-09-24] MEDS: OMEPRAZOLE 20 MG CAP PO SCH (08:30)
[2020-09-24] MEDS: ASPIRIN 81MG ENTERIC TABLET PO SCH (08:30)
[2020-09-24] MEDS: FINASTERIDE 5 MG TAB PO SCH (08:30)
[2020-09-24] MEDS: ACETAMINOPHEN TAB 650MG DOSE (2X325MG) PO PRN ×2 (08:30→21:15)
[2020-09-24] MEDS: allopurinoL 100 MG TAB PO SCH (08:30)
[2020-09-24] MEDS: predniSONE 5 MG TAB PO SCH (08:30)
[2020-09-24] MEDS: TAMSULOSIN 0.4 MG CAP PO SCH (08:30)
[2020-09-24] MEDS: TACROLIMUS 0.5 MG CAP PO SCH ×2 (08:30→21:15)
[2020-09-24] MEDS: CARVedilol 12.5 MG TAB PO SCH ×2 (08:31→21:16)
[2020-09-24] MEDS: TRIAMCINOLONE ACET 0.1% CREAM 80 GM TOP SCH ×2 (10:13→21:16)
[2020-09-24 10:39] LABS: BASO % 0.1 % (0.0-1.0); EOS # 0.1 10^3/uL (0.0-0.5); EOS % 1.5 % (0.0-3.0); HEMATOCRIT 31.7 % (42.0-52.0); HEMOGLOBIN 10.5 g/dl (13.5-17.5); LYMPH # 0.8 10^3/uL (1.5-5.0); LYMPH % 9.3 % (24.0-44.0); MEAN CORPUSCULAR HEMOGLOBIN 30.2 pg (27.0-33.0); MEAN CORPUSCULAR HGB CONC 33.1 g/dl (32.0-36.5); MEAN CORPUSCULAR VOLUME 91.1 fl (80.0-96.0); MONO # 0.8 10^3/uL (0.0-0.8); MONO % 8.5 % (2.0-8.0); RED BLOOD COUNT 3.48 10^6/uL (4.30-6.10); WHITE BLOOD COUNT 8.8 10^3/uL (4.0-10.0)
[2020-09-24 10:46] LABS: PLATELET COUNT, AUTOMATED 87 10^3/uL (150-450)
[2020-09-24 11:01] LABS: CALCIUM LEVEL 8.6 MG/DL (8.8-10.2); CREATININE FOR GFR 2.76 MG/DL (0.70-1.30); GLOMERULAR FILTRATION RATE 24.7 (>49); POTASSIUM SERUM 3.9 MEQ/L (3.5-5.1)
[2020-09-24] MEDS ORDERED: SUMAtriptan SUCCINATE 25 MG TAB PO ONE (12:00)
[2020-09-24 14:00] VITALS: BP 150/84
[2020-09-24] MEDS ORDERED: cefTRIAXone SOD 1 GM in D5W MINI-BAG PLUS 50 ML IV SCH (14:00)
[2020-09-24] MEDS ORDERED: NS 500 ML IV ONE (14:00)
[2020-09-24] MEDS: cefTRIAXone SOD 2 GM in D5W MINI-BAG PLUS 50 ML IV SCH (15:02)
--- NOTE | 2020-09-24 19:55 | IPN ---
PROGRESS NOTE DATE: 09/24/2020 SUBJECTIVE: The patient was seen and examined at the bedside today morning. He was lying in the bed. He is complaining of headache in the morning. Last night he got his urinalysis done, which showed urine was very cloudy with 3+ leukocyte esterase. His renal function is also worse today with the creatinine having bumped up from 2.2 to 2.7 today morning. OBJECTIVE: Vital signs: Temperature is 98.1 degrees Fahrenheit, blood pressure 150/84, pulse is 67, respiratory rate of 16, saturating 96% on room air. Intake and output: Urine output recorded as 270 ml. Weight in the bed scale is not available. PHYSICAL EXAMINATION: General: The patient is awake, alert, oriented x2, lying in bed complaining of headache. Head and neck examination: Pupils equally round and reactive to light. Mucous membranes are moist. Neck is supple. No jugular venous distention (JVD). Cardiovascular: S1, S2 regular rate. No edema of the bilateral lower extremities. Respiratory: Chest is clear to auscultation bilaterally. Bilateral equal air entry. No rales or rhonchi. Abdomen: Soft. Positive bowel sounds. Mild suprapubic discomfort on deep palpation. Left lower quadrant renal allograft is noted. Musculoskeletal: No clubbing or cyanosis. Pulses are 2+. SHANK BREAKER: No focal deficit. Power is 5/5 in all extremities . LABORATORY REVIEW: Complete blood count (CBC) showed a WBC 8.8, hemoglobin 10.5, platelets of 87. Urinalysis done last night showed it was cloudy with 3+ leukocyte esterase, 177 WBCs, 2+ bacteria. Basic metabolic panel (BMP) showed sodium 139, potassium 3.9, chloride 107, bicarbonate 28, BUN 42, creatinine is 2.7, it was 2.2 yesterday. IMAGING: A bladder ultrasound was done on 09/22, which shows irregular circumferential bladder wall thickening. A large left diverticulum. Pre-void bladder volume was 191 ml postvoid was 139. CURRENT INPATIENT MEDICATIONS: The patient's medications were all reviewed by myself. He was started on ciprofloxacin, but it has been stopped because of his metabolic encephalopathy and he has been started on ceftriaxone 2 gm IV q 24 hours. He was also given normal saline 500 ml bolus. Haldol has been stopped. Seroquel has also been stopped. The patient was given a dose of sumatriptan 25 mg by mouth times one dose. Temazepam has also been stopped. ASSESSMENT AND PLAN: 1. Acute renal failure superimposed on chronic kidney disease. The patient has a large bladder diverticulum and he has a urinary tract infection (UTI) as well. He has been started on ceftriaxone. He was also given 500 ml normal saline bolus. If renal function does not improve, he night need placement of Soto catheter. 2. Urinary tract infection. Urine culture is pending. However, urinalysis is very cloudy. He has a large bladder diverticulum as well. Because of renal allograft status and risk of pyelonephritis, he was started on IV ceftriaxone. 3. Renal allograft status. Continue prednisone, Myfortic and tacrolimus. 4. Hypertension. It is controlled with amlodipine and Coreg. 5. Lower pole renal allograft cyst. Management will done by IR as outpatient.
[2020-09-24] MEDS: amLODIPine 5 MG TAB PO SCH (21:15)
[2020-09-24 22:00] VITALS: BP 152/81
[2020-09-25 06:00] VITALS: BP 150/81
[2020-09-25 06:58] LABS: BASO % 0.2 % (0.0-1.0); EOS # 0.2 10^3/uL (0.0-0.5); EOS % 1.7 % (0.0-3.0); HEMATOCRIT 35.2 % (42.0-52.0); HEMOGLOBIN 11.2 g/dl (13.5-17.5); LYMPH % 10.7 % (24.0-44.0); MEAN CORPUSCULAR HEMOGLOBIN 29.7 pg (27.0-33.0); MEAN CORPUSCULAR HGB CONC 31.8 g/dl (32.0-36.5); MEAN CORPUSCULAR VOLUME 93.4 fl (80.0-96.0); MONO # 0.6 10^3/uL (0.0-0.8); MONO % 7.1 % (2.0-8.0); NEUTROPHILS # 7.2 10^3/uL (1.5-8.5); NEUTROPHILS % 79.6 % (36.0-66.0); RED BLOOD COUNT 3.77 10^6/uL (4.30-6.10); WHITE BLOOD COUNT 9.1 10^3/uL (4.0-10.0)
[2020-09-25 06:59] LABS: PLATELET COUNT, AUTOMATED 98 10^3/uL (150-450)
[2020-09-25 07:11] LABS: CALCIUM LEVEL 8.9 MG/DL (8.8-10.2); CREATININE FOR GFR 2.4 MG/DL (0.70-1.30); GLOMERULAR FILTRATION RATE 29.1 (>49); POTASSIUM SERUM 3.4 MEQ/L (3.5-5.1)
--- NOTE | 2020-09-25 07:33 | IPN ---
PROGRESS NOTE DATE: 09/22/2020 SUBJECTIVE: The patient was seen and examined at the bedside today morning. He is afebrile and hemodynamically stable. I was told by the nursing staff that the patient is having very foul smelling urine. Bedside bladder scan done every 8 hours is showing a postvoid residual around 240 ml. Renal function is stable with creatinine fluctuating at around 2.3. OBJECTIVE: VITAL SIGNS: Temperature is 96.8 degrees Fahrenheit, blood pressure is 148/53, pulse is 66, respiratory rate of 13, saturation 97% on room air. INTAKE AND OUTPUT: Urine output recorded as 1350 ml so far since overnight. GENERAL APPEARANCE: Patient is awake, alert and oriented x2, laying in bed, in no apparent distress. HEAD AND NECK: Extraocular muscles intact. Pupils equally round and reactive to light. Mucous membranes are moist. Neck is supple. There is no JVD. CARDIOVASCULAR: S1 and S2, regular rate. No edema of the bilateral lower extremities. RESPIRATORY: Chest is clear to auscultation bilaterally. Bilateral equal air entry. No rales or rhonchi. ABDOMEN: Soft, mildly tender to deep palpation in the suprapubic region. GENITOURINARY: He does not have any Soto catheter at this time. No edema is noted. MUSCULOSKELETAL: No clubbing or cyanosis. Pulses are 2+. HOISTING LABORER: No focal deficit. Power is 5/5 in all extremities. LABORATORY DATA: CBC showed a WBC of 8.2, hemoglobin of 11.8, platelets are 86,000. BMP showed a sodium of 140, potassium of 3.5, chloride 107, bicarbonate 26, BUN 32, creatinine is 2.3. CURRENT INPATIENT MEDICATIONS: The patient's medications were all reviewed by myself. He has been started on Proscar 5 mg p.o. daily as well. ASSESSMENT AND PLAN: 1. Acute renal failure superimposed on chronic kidney disease. Patient's renal function improved all the way with a creatinine of 2.1, however after removal of Soto catheter it has bumped up to 2.3 and it is staying stable. Frequent bladder scans are showing a postvoid residual of around 250 ml. The bladder scan with postvoid residual has been ordered. The report is pending. 2. Urinary retention. The patient is on Flomax. He has been started on Proscar as well. The official bladder scan report is pending. 3. Large lower pole renal allograft cyst. It will be managed as an outpatient once the patient is discharged from the hospital. 4. Renal allograft status. Continue prednisone, Myfortic and Tacrolimus. 5. Hypertension, continue current dose of Coreg and amlodipine.
[2020-09-25] MEDS ORDERED: POTASSIUM CHLORIDE 10 MEQ SR TABLET PO ONE (08:05)
[2020-09-25] MEDS: TACROLIMUS 0.5 MG CAP PO SCH ×2 (08:51→22:12)
[2020-09-25] MEDS: MYFORTIC 180 MG PO SCH ×2 (08:51→22:10)
[2020-09-25] MEDS: ASPIRIN 81MG ENTERIC TABLET PO SCH (08:51)
[2020-09-25] MEDS: allopurinoL 100 MG TAB PO SCH (08:51)
[2020-09-25] MEDS: FINASTERIDE 5 MG TAB PO SCH (08:51)
[2020-09-25] MEDS: predniSONE 5 MG TAB PO SCH (08:51)
[2020-09-25] MEDS: TAMSULOSIN 0.4 MG CAP PO SCH (08:51)
[2020-09-25] MEDS: OMEPRAZOLE 20 MG CAP PO SCH (08:51)
[2020-09-25] MEDS: TRIAMCINOLONE ACET 0.1% CREAM 80 GM TOP SCH ×2 (08:52→22:13)
[2020-09-25] MEDS: CARVedilol 12.5 MG TAB PO SCH ×2 (08:52→22:12)
--- NOTE | 2020-09-25 09:58 | IPNPDOC ---
Subjective Date Seen The patient was seen on 09/25/20. Subjective Chief Complaint/HPI Awake continues to complains of neck pain and headache. He did have breakfast. He told me that he had couple bite of scrambled eggs. Did not have toast or coffee. Says did not sleep last night. Staff reports that he had a good night, was in bed all night. This morning he complains of feeling tired. He is oriented x 3. Objective Physical Examination General Exam: Positive: Alert, Cooperative, No Acute Distress, Other (few words, intermittently gets agitated and walks the corridors.) ENT Exam: Positive: Atraumatic, Mucous membr. moist/pink, Pharynx Normal Neck Exam: Positive: Other (tenderness at the back and sides of the neck.) Chest Exam: Positive: Clear to auscultation, Normal air movement Heart Exam: Positive: Rate Normal, Regular Rhythm, Normal S1, Normal S2; Negative: Murmurs, Rubs Telemetry: Positive: No significant arrhythmia Abdomen Exam: Positive: Normal bowel sounds, Soft; Negative: Tenderness, Hepatospenomegaly Extremity Exam: Negative: Clubbing, Cyanosis, Edema Psych Exam: Positive: Oriented x 3 Assessment /Plan Assessment 64 year old male with h/o congenital kidney disease with Depression, unspecified psychosis, likely underlying Dementia, following with Dr Grace since last year, 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 This reports started after the second dose of COVID vaccine along with diarrhea and a skin rash. Fever on 09/23/20 Had recent catheterization. also complains of neck pain Ua dirty, UC pending. Will give ceftriaxone 2 gms Acute on chronic delirium with possible underlying dementia but oriented x 3, decompensated severely on 09/23/20. Needing haldol IV/ IM and po. also had to s tart him on iv ativan. Discussed with Dr Rosen on 09/23/20 he recommended stopping the seroquel, zo loft, temazepam, ativan, haldol ,atarax and all other nonessential meds and allow few days to come off the meds. He did say it could be rough and his delirium could remain very bad but recommended not to use any meds unless he becomes a threat to himself or others. I have stopped all psychotropic meds. will continue only his meds for renal transplant and antihypertensives and meds flomax and finasteride. will use meds only as 1 time order basis he he becomes a harm to himself or others. AZUCENA on CKD baseline creatinine around 2.0 likely due to obstructive uropathy and intermittently get dry due to poor oral intake when he becomes delirious CT abdomen had show some hydronephrosis in the transplant so cote was placed with improved creatinine bladder Us shows Chronic bladder wall thickening and large left bladder diverticulum causing incomplete emptying and significant postvoid residual volume. Also Has a large cyst in the lower pole of the transplant kidney which may be causing obstruction. This needs to be drained as outpatient by IR in [place]. Nephro is following following Chronic Thrombocytopenia not on heparin. Lowest in prior admission was in 60K Renal transplant status with allograft nephropathy with urinary retention. continue immunosuppressants as per home. HTN amlodipine, coreg Hyperuricemia/gout allopurinol Skin rash with severe itching after the vaccine. triamcinolone, benadryl cream and atarax CAD s/p stents asa, statin, coreg. Plan/VTE VTE Prophylaxis Ordered?: Yes VS, I&O, 24H, Fishbone Vital Signs/I&O Vital Signs Date Time Temp Pulse Resp B/P (MAP) Pulse Ox O2 Delivery O2 Flow Rate FiO2 09/25/20 08:52 79 144/83 09/25/20 06:00 99.3 16 99 Room Air I&O- Last 24 Hours up to 6 AM 09/25/20 06:00 Intake Total 1500 ml Output Total 550 ml Balance 950 ml Laboratory Data 24H LABS Laboratory Tests 2 09/24/20 10:23: Immature Granulocyte % (Auto) 0.6, Neutrophils (%) (Auto) 80.0H, Lymphocytes (%) (Auto) 9.3L, Monocytes (%) (Auto) 8.5H, Eosinophils (%) (Auto) 1.5, Basophils (%) (Auto) 0.1, Neutrophils # (Auto) 7.0, Lymphocytes # (Auto) 0.8L, Monocytes # (Auto) 0.8, Eosinophils # (Auto) 0.1, Basophils # (Auto) 0.0, Nucleated Red Blood Cells % (auto) 0.0, Immature Platelet Fraction 1.4, Anion Gap 4L, Glomerular Filtration Rate 24.7L, Calcium Level 8.6L 09/25/20 05:33: Immature Granulocyte % (Auto) 0.7, Neutrophils (%) (Auto) 79.6H, Lymphocytes (%) (Auto) 10.7L, Monocytes (%) (Auto) 7.1, Eosinophils (%) (Auto) 1.7, Basophils (%) (Auto) 0.2, Neutrophils # (Auto) 7.2, Lymphocytes # (Auto) 1.0L, Monocytes # (Auto) 0.6, Eosinophils # (Auto) 0.2, Basophils # (Auto) 0.0, Nucleated Red Blood Cells % (auto) 0.0, Anion Gap 9, Glomerular Filtration Rate 29.1L, Calcium Level 8.9 CBC/BMP Laboratory Tests 09/24/20 10:23 09/25/20 05:33 Microbiology Microbiology 09/24/20 Urine Culture, Received Pending 09/16/20 Blood Culture - Final, Complete NO GROWTH AFTER 5 DAYS 09/16/20 Blood Culture - Final, Complete NO GROWTH AFTER 5 DAYS NADINE STRICKLAND MD Sep 25, 2020 09:58
[2020-09-25] MEDS: cefTRIAXone SOD 2 GM in D5W MINI-BAG PLUS 50 ML IV SCH (13:35)
[2020-09-25] MEDS: ACETAMINOPHEN 500 MG TAB PO SCH ×2 (13:36→22:11)
[2020-09-25 14:00] VITALS: BP 142/83
[2020-09-25] MEDS ORDERED: NS 0.45% 500 ML IV SCH (16:25)
--- NOTE | 2020-09-25 17:01 | IPN ---
NEPHROLOGY PROGRESS NOTE DATE: 09/25/2020 SUBJECTIVE: Santos is seen and examined this morning at the bedside. He complains of a pounding headache and neck pain. He otherwise denies any other issues. He was oriented x3, awake, interactive, conversational. His renal function shows improvement. OBJECTIVE: VITAL SIGNS: Temperature 99.9, pulse 72, respiratory rate 20, blood pressure 142/83, saturating 94-99% on room air. INTAKE AND OUTPUT: Intake yesterday was 1.6 liters. Urine output was 820 mL. Weight in the bed scale today is not recorded. PHYSICAL EXAMINATION: GENERAL APPEARANCE: The patient is seen lying in bed, elderly male, appears older than stated age, awake, alert, oriented to person, place and situation and in no apparent distress. HEENT: The extraocular muscles are intact. Tongue is moist. Jugular veins are not elevated. HEART: Regular. S1, S2, there is absolutely no leg edema. LUNGS: Clear to auscultation bilaterally. No crackles, rales or rhonchi. ABDOMEN: Soft and nontender. His bladder is not palpable. GENITOURINARY: There is no Soto catheter and the patient is incontinent to diaper. MUSCULOSKELETAL: He moves all four extremities on command. SKIN: Warm and dry. Normal turgor. LABORATORY STUDIES: Today's laboratory studies show sodium 140, potassium 3.4, bicarbonate 24, BUN 40, creatinine 2.4, hemoglobin 11.2, platelet count 98. Urine culture is pending. IMAGING: Bladder ultrasound from September 22 is reviewed with chronic bladder wall thickening and large left bladder diverticulum. CURRENT INPATIENT MEDICATIONS: The patient's medications were reviewed by myself. He continues on IV Ceftriaxone. I note he was started on Tylenol one gram p.o. q. 8 hourly. He was also given a dose of potassium chloride 20 mEq p.o. times one. His remainder medications are unchanged as compared to yesterday. PROBLEMS: 1. Chronic allograft nephropathy - The patient's prior renal labs from the office are reviewed. He has had significant fluctuation in creatinine in the past 6 months. As an outpatient his best creatinine was 1.4 and his worst creatinine in the past 6 months in the outpatient setting was 2.4. The majority of his readings are around 1.7 to 2.0. He has a mild kidney injury in the setting of bladder diverticulum and obstruction and poor oral intake. His creatinine is improved on the latest labs down to 2.4 today. Post void residual is ordered. 2. Chronic immunosuppression he continues on his usual home regimen and no changes are being made. 3. Hypertension continues on Amlodipine and Carvedilol with well controlled blood pressures. 4. Probable urinary tract infection his urine culture is pending. Primary team is treating with Ceftriaxone. 5. Urinary retention he continues on Flomax and Proscar. He has a bladder diverticulum. He also has a large lower pole renal allograft cyst. He presently does not have a Soto catheter. Postvoid residual bladder scan is ordered, and we will keep an eye on his degree of retention.
[2020-09-25 22:00] VITALS: BP 151/81
[2020-09-25] MEDS: amLODIPine 5 MG TAB PO SCH (22:11)
[2020-09-26] MEDS: ACETAMINOPHEN 500 MG TAB PO SCH ×3 (05:14→21:16)
[2020-09-26 06:00] VITALS: BP 148/80
[2020-09-26 06:15] LABS: BASO % 0.3 % (0.0-1.0); EOS # 0.2 10^3/uL (0.0-0.5); HEMATOCRIT 35.5 % (42.0-52.0); HEMOGLOBIN 11.5 g/dl (13.5-17.5); LYMPH # 0.9 10^3/uL (1.5-5.0); LYMPH % 11.3 % (24.0-44.0); MEAN CORPUSCULAR HEMOGLOBIN 29.2 pg (27.0-33.0); MEAN CORPUSCULAR HGB CONC 32.4 g/dl (32.0-36.5); MEAN CORPUSCULAR VOLUME 90.1 fl (80.0-96.0); MONO # 0.5 10^3/uL (0.0-0.8); MONO % 6.8 % (2.0-8.0); NEUTROPHILS # 6.2 10^3/uL (1.5-8.5); NEUTROPHILS % 78.6 % (36.0-66.0); PLATELET COUNT, AUTOMATED 116 10^3/uL (150-450); RED BLOOD COUNT 3.94 10^6/uL (4.30-6.10); WHITE BLOOD COUNT 7.9 10^3/uL (4.0-10.0)
[2020-09-26 06:28] LABS: CALCIUM LEVEL 9.3 MG/DL (8.8-10.2); CREATININE FOR GFR 1.95 MG/DL (0.70-1.30); GLOMERULAR FILTRATION RATE 36.9 (>49); POTASSIUM SERUM 3.7 MEQ/L (3.5-5.1)
[2020-09-26] MEDS: MYFORTIC 180 MG PO SCH ×2 (09:20→19:32)
[2020-09-26] MEDS: OMEPRAZOLE 20 MG CAP PO SCH (09:21)
[2020-09-26] MEDS: ASPIRIN 81MG ENTERIC TABLET PO SCH (09:21)
[2020-09-26] MEDS: allopurinoL 100 MG TAB PO SCH (09:21)
[2020-09-26] MEDS: TAMSULOSIN 0.4 MG CAP PO SCH (09:21)
[2020-09-26] MEDS: predniSONE 5 MG TAB PO SCH (09:21)
[2020-09-26] MEDS: TACROLIMUS 0.5 MG CAP PO SCH ×2 (09:21→19:32)
[2020-09-26] MEDS: TRIAMCINOLONE ACET 0.1% CREAM 80 GM TOP SCH (09:21)
[2020-09-26] MEDS: FINASTERIDE 5 MG TAB PO SCH (09:21)
[2020-09-26] MEDS: CARVedilol 12.5 MG TAB PO SCH ×2 (09:22→19:32)
--- NOTE | 2020-09-26 10:58 | IPNPDOC ---
Subjective Date Seen The patient was seen on 09/26/20. Subjective Chief Complaint/HPI Patient sitting up in chair complains of neck pain mainly on the left side. His sternocleidomastoid is very tut there. Also complains of headache mainly on the left. He is calm and quiet and cooperative. No agitation or fidgeting. Oriented, answers questions appropriately. Objective Physical Examination General Exam: Positive: Alert, Cooperative, No Acute Distress ENT Exam: Positive: Atraumatic, Mucous membr. moist/pink, Pharynx Normal Neck Exam: Positive: Other (tenderness at the back and sides of the neck.) Chest Exam: Positive: Clear to auscultation, Normal air movement Heart Exam: Positive: Rate Normal, Regular Rhythm, Normal S1, Normal S2; Negative: Murmurs, Rubs Telemetry: Positive: No significant arrhythmia Abdomen Exam: Positive: Normal bowel sounds, Soft; Negative: Tenderness, Hepatospenomegaly Extremity Exam: Negative: Clubbing, Cyanosis, Edema Psych Exam: Positive: Oriented x 3 Assessment /Plan Assessment 64 year old male with h/o congenital kidney disease with Depression, unspecified psychosis, likely underlying Dementia, following with Dr Grace since last year, 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 This reports started after the second dose of COVID vaccine along with diarrhea and a skin rash. Fever on 09/23/20 Had recent catheterization. also complains of neck pain Ua dirty, UC pending. Will give ceftriaxone 2 gms Neck pain As per he has spondylosis and often has headaches and neck pain at home also. will give capsicin cream. Acute on chronic delirium with possible underlying dementia decompensated severely on 09/23/20. Needing haldol IV/ IM and po. also had to start him on iv ativan. Discussed with Dr Rosen on 09/23/20 he recommended stopping the seroquel, zoloft, temazepam, ativan, haldol ,atarax and all other nonessential meds and allow few days to come off the meds. He did say it could be rough and his delirium could remain very bad but recommended not to use any meds unless he becomes a threat to himself or others. I have stopped all psychotropic meds. Seems to be doing better. AZUCENA on CKD baseline creatinine around 2.0 likely due to obstructive uropathy and intermittently get dry due to poor oral intake when he becomes delirious CT abdomen had show some hydronephrosis in the transplant so cote was placed with improved creatinine bladder Us shows Chronic bladder wall thickening and large left bladder diverticulum causing incomplete emptying and significant postvoid residual volume. Also Has a large cyst in the lower pole of the transplant kidney which may be causing obstruction. This needs to be drained as outpatient by IR in [place]. Nephro is following following Chronic Thrombocytopenia not on heparin. Lowest in prior admission was in 60K Renal transplant status with allograft nephropathy with urinary retention. continue immunosuppressants as per home. HTN amlodipine, coreg Hyperuricemia/gout allopurinol Skin rash with severe itching after the vaccine. improved. CAD s/p stents asa, statin, coreg. Plan/VTE VTE Prophylaxis Ordered?: Yes VS, I&O, 24H, Fishbone Vital Signs/I&O Vital Signs Date Time Temp Pulse Resp B/P (MAP) Pulse Ox O2 Delivery O2 Flow Rate FiO2 09/26/20 09:22 89 141/82 09/26/20 06:00 99.3 18 96 Room Air I&O- Last 24 Hours up to 6 AM 09/26/20 06:00 Intake Total 1080 ml Output Total 1300 ml Balance -220 ml Laboratory Data 24H LABS Laboratory Tests 2 09/26/20 05:22: Immature Granulocyte % (Auto) 1.0, Neutrophils (%) (Auto) 78.6H, Lymphocytes (%) (Auto) 11.3L, Monocytes (%) (Auto) 6.8, Eosinophils (%) (Auto) 2.0, Basophils (%) (Auto) 0.3, Neutrophils # (Auto) 6.2, Lymphocytes # (Auto) 0.9L, Monocytes # (Auto) 0.5, Eosinophils # (Auto) 0.2, Basophils # (Auto) 0.0, Nucleated Red Blood Cells % (auto) 0.0, Anion Gap 8, Glomerular Filtration Rate 36.9L, Calcium Level 9.3 CBC/BMP Laboratory Tests 09/26/20 05:22 Microbiology Microbiology 09/24/20 Urine Culture, Received Pending 09/16/20 Blood Culture - Final, Complete NO GROWTH AFTER 5 DAYS 3/13/21 Blood Culture - Final, Complete NO GROWTH AFTER 5 DAYS NADINE STRICKLAND MD Sep 26, 2020 10:58
[2020-09-26 14:00] VITALS: BP 155/89
[2020-09-26] MEDS: CAPSAICIN 0.025% CR 60 GM TOP SCH ×2 (14:20→21:16)
[2020-09-26] MEDS: cefTRIAXone SOD 2 GM in D5W MINI-BAG PLUS 50 ML IV SCH (14:20)
--- NOTE | 2020-09-26 15:58 | IPN ---
PROGRESS NOTE DATE: 09/26/2020 SUBJECTIVE: Patient was seen and examined this morning at the bedside. He is calm, cooperative, and oriented and offers no complaints; however, I did see him earlier skipping down the hallways with very little in the way of clothing. The patient states he does not like to sit still. Nursing staff reports postvoid residual bladder scan has been consistently averaging 200 mL. The patient's renal function has improved back to baseline after receiving 500 mL of intravenous (IV) fluid yesterday. Temperature 98.8, pulse 75, respiratory rate 18, blood pressure 155/89, saturating 95% on room air. Intake yesterday was 920. Urine output yesterday was 950. Weight in the bed scale today is not recorded. GENERAL: Patient is seen awake, alert, sitting in the chair getting himself dressed without any issues. He was also seen walking the hallways with very little clothing. Extraocular muscles are intact. Eye contact is poor. Tongue is moist. Neck is supple. Jugular veins are not elevated. HEART: Sounds are regular, S1, S2. There is absolutely no peripheral edema. There is no dependent edema. LUNGS: Clear to auscultation. He is seen comfortably on room air. No crackle or rale. ABDOMEN: Soft and protuberant. There is no tenderness to palpation. His allograft is nontender. His bladder is not palpable. NEUROLOGIC: He is oriented times three, interactive and cooperative with physical exam and answers all questions appropriately. LABORATORY STUDIES: Sodium 140, potassium 3.7, bicarbonate 24, BUN 34, creatinine 1.9. Hemoglobin 11.5, platelets 116. Urine culture today grew Morganella morganii, which is sensitive to the ceftriaxone that he is currently receiving. INPATIENT MEDICATIONS: Reviewed by myself, and no change noted as compared to yesterday. PROBLEMS: 1. Chronic allograft nephropathy with recent acute kidney injury. His creatinine has improved from 2.7 two days ago down to 1.9 today. He is back to his baseline renal function. His kidney injury was in the setting of mild dehydration and mild obstruction along with urinary tract infection (UTI). 2. Chronic immunosuppression. He continues on his usual triple immunosuppressants, prednisone, tacrolimus, and Myfortic, and no change are being made. 3. Morganella morganii urinary tract infection (UTI). It is sensitive to the ceftriaxone that he is receiving. No need for Soto catheter given his postvoid residual bladder scans have consistently been around 200 mL now, and he has a known bladder diverticulum as well. 4. Hypertension, well controlled. Continue with amlodipine and carvedilol. 5. Urinary retention in this patient with large lower pole renal allograft cyst and bladder diverticulum. He continues on Flomax and Proscar. Nursing staff has been checking postvoid residual bladder scans, and they have been averaging 20 mL. No need for Soto catheter at present. DISPOSITION: Patient is stable for discharge from a nephrology point of view with followup in the office.
[2020-09-26] MEDS ORDERED: LORazepam 0.5 MG TAB PO PRN (18:25)
[2020-09-26] MEDS: amLODIPine 5 MG TAB PO SCH (19:32)
[2020-09-26] MEDS: CEFDINIR 300 MG CAP (OMNICEF) PO SCH (19:33)
[2020-09-26 22:00] VITALS: BP 153/89
[2020-09-27 06:00] VITALS: BP 156/83
[2020-09-27] MEDS: CAPSAICIN 0.025% CR 60 GM TOP SCH ×3 (06:04→21:52)
[2020-09-27] MEDS: ACETAMINOPHEN 500 MG TAB PO SCH ×3 (06:04→21:50)
[2020-09-27 06:08] LABS: BASO % 0.5 % (0.0-1.0); EOS # 0.2 10^3/uL (0.0-0.5); EOS % 2.4 % (0.0-3.0); HEMATOCRIT 35.1 % (42.0-52.0); HEMOGLOBIN 11.3 g/dl (13.5-17.5); LYMPH # 0.9 10^3/uL (1.5-5.0); MEAN CORPUSCULAR HEMOGLOBIN 29.4 pg (27.0-33.0); MEAN CORPUSCULAR HGB CONC 32.2 g/dl (32.0-36.5); MEAN CORPUSCULAR VOLUME 91.2 fl (80.0-96.0); MONO # 0.5 10^3/uL (0.0-0.8); MONO % 7.7 % (2.0-8.0); NEUTROPHILS % 75.2 % (36.0-66.0); PLATELET COUNT, AUTOMATED 117 10^3/uL (150-450); RED BLOOD COUNT 3.85 10^6/uL (4.30-6.10); WHITE BLOOD COUNT 6.6 10^3/uL (4.0-10.0)
[2020-09-27 06:26] LABS: CALCIUM LEVEL 9.3 MG/DL (8.8-10.2); CREATININE FOR GFR 1.77 MG/DL (0.70-1.30); GLOMERULAR FILTRATION RATE 41.3 (>49); POTASSIUM SERUM 3.6 MEQ/L (3.5-5.1)
[2020-09-27] MEDS: CEFDINIR 300 MG CAP (OMNICEF) PO SCH ×2 (09:34→21:51)
[2020-09-27] MEDS: MYFORTIC 180 MG PO SCH ×2 (09:34→21:52)
[2020-09-27] MEDS: OMEPRAZOLE 20 MG CAP PO SCH (09:34)
[2020-09-27] MEDS: predniSONE 5 MG TAB PO SCH (09:34)
[2020-09-27] MEDS: ASPIRIN 81MG ENTERIC TABLET PO SCH (09:34)
[2020-09-27] MEDS: FINASTERIDE 5 MG TAB PO SCH (09:34)
[2020-09-27] MEDS: TACROLIMUS 0.5 MG CAP PO SCH ×2 (09:34→21:51)
[2020-09-27] MEDS: allopurinoL 100 MG TAB PO SCH (09:34)
[2020-09-27] MEDS: TAMSULOSIN 0.4 MG CAP PO SCH (09:35)
[2020-09-27] MEDS: CARVedilol 12.5 MG TAB PO SCH ×2 (09:37→21:51)
--- NOTE | 2020-09-27 10:37 | IPNPDOC ---
Subjective Date Seen The patient was seen on 09/27/20. Subjective Chief Complaint/HPI awake alert and cooperative, oriented x 3, answers a few questions but few words. He complains of left ankle pain today. yesterday he was hopping in the corridor. Continues to have neck pain but says its better. Does not like the cream as it bishop. Objective Physical Examination General Exam: Positive: Alert, Cooperative, No Acute Distress ENT Exam: Positive: Atraumatic, Mucous membr. moist/pink, Pharynx Normal Neck Exam: Positive: Other (tenderness at the back and sides of the neck.) Chest Exam: Positive: Clear to auscultation, Normal air movement Heart Exam: Positive: Rate Normal, Regular Rhythm, Normal S1, Normal S2; Negative: Murmurs, Rubs Telemetry: Positive: No significant arrhythmia Abdomen Exam: Positive: Normal bowel sounds, Soft; Negative: Tenderness, Hepatospenomegaly Extremity Exam: Negative: Clubbing, Cyanosis, Edema Psych Exam: Positive: Oriented x 3 Assessment /Plan Assessment 64 year old male with h/o congenital kidney disease with Depression, unspecified psychosis, likely underlying Dementia, following with Dr Grace since last year, 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 This reports started after the second dose of COVID vaccine along with diarrhea and a skin rash. UTi Fever on 09/23/20 Had recent catheterization. [facility]. Cefdinir. Neck pain As per he has spondylosis and often has headaches and neck pain at home also. will give capsicin cream and tylenol. Acute on chronic delirium with possible underlying dementia decompensated severely on 09/23/20. Needing haldol IV/ IM and po. also had to start him on iv ativan. Discussed with Dr Rosen on 09/23/20 he recommended stopping the seroquel, zoloft, temazepam, ativan, haldol ,atarax and all other nonessential meds and allow few days to come off the meds. He did say it could be rough and his delirium could remain very bad but recommended not to use any meds unless he becomes a threat to himself or others. I have stopped all psychotropic meds. Had to give ativan po last night as very restless, could not settle down walking all day. Have consulted Dr Grace. AZUCENA on CKD baseline creatinine around 2.0 likely due to obstructive uropathy and intermittently get dry due to poor oral intake when he becomes delirious CT abdomen had show some hydronephrosis in the transplant so cote was placed with improved creatinine bladder Us shows Chronic bladder wall thickening and large left bladder diverticulum causing incomplete emptying and significant postvoid residual volume. Also Has a large cyst in the lower pole of the transplant kidney which may be causing obstruction. This needs to be drained as outpatient by IR in [place]. Nephro is following following Chronic Thrombocytopenia not on heparin. Lowest in prior admission was in 60K Renal transplant status with allograft nephropathy with urinary retention. continue immunosuppressants as per home. HTN amlodipine, coreg Hyperuricemia/gout allopurinol Skin rash with severe itching after the vaccine. improved. CAD s/p stents asa, statin, coreg. Plan/VTE VTE Prophylaxis Ordered?: Yes VS, I&O, 24H, Fishbone Vital Signs/I&O Vital Signs Date Time Temp Pulse Resp B/P (MAP) Pulse Ox O2 Delivery O2 Flow Rate FiO2 09/27/20 09:37 83 152/89 09/27/20 06:00 97.5 18 99 Room Air I&O- Last 24 Hours up to 6 AM 09/27/20 06:00 Intake Total 510 ml Output Total 725 ml Balance -215 ml Laboratory Data 24H LABS Laboratory Tests 2 09/27/20 05:39: Immature Granulocyte % (Auto) 1.2, Neutrophils (%) (Auto) 75.2H, Lymphocytes (%) (Auto) 13.0L, Monocytes (%) (Auto) 7.7, Eosinophils (%) (Auto) 2.4, Basophils (%) (Auto) 0.5, Neutrophils # (Auto) 5.0, Lymphocytes # (Auto) 0.9L, Monocytes # (Auto) 0.5, Eosinophils # (Auto) 0.2, Basophils # (Auto) 0.0, Nucleated Red Blood Cells % (auto) 0.0, Anion Gap 10, Glomerular Filtration Rate 41.3L, Calcium Level 9.3 CBC/BMP Laboratory Tests 09/27/20 05:39 Microbiology Microbiology 09/24/20 Urine Culture - Final, Complete Morganella Morganii Ssp NADINE Escalera MD Sep 27, 2020 10:37
--- NOTE | 2020-09-27 11:47 | IPN ---
PROGRESS NOTE DATE: 09/27/2020 SUBJECTIVE: Santos is seen and examined this morning at the bedside. He really does not participate in conversation much today, but he denies any complaints. He is anxious to go home. He is restless in the hospital. I encouraged him to continue with oral hydration. His renal allograft function continues to improve and is back to baseline. OBJECTIVE: VITAL SIGNS: Temperature 97.5, pulse 76, respiratory rate 18, blood pressure 156/83, saturating 99% on room air. INPUT AND OUTPUT: Urine output yesterday was 1 liter. Weight on the bed scale today is no recorded. GENERAL APPEARANCE: Patient is seen sitting out of bed in the chair, awake and alert, and oriented to person, place and he answers questions appropriately but with minimal response and does not participate much in conversation. Makes poor eye contact. HEENT: Tongue is moist. NECK: Supple. Jugular veins were not elevated. HEART: Heart sounds were regular S1 and S2. There is no dependent edema. There is no peripheral edema. LUNGS: Clear to auscultation. No crackle or rale. ABDOMEN: Soft and nontender. There are bowel sounds. The allograft is not tender. EXTREMITIES: Negative for clubbing, cyanosis or edema. He has a fistula in the right arm which is patent with thrill and bruit. NEUROLOGIC: He is oriented but has had bouts of restlessness and fidgety behavior and hyperactivity although at the time of my visit today he was calm. LABORATORY DATA: Hemoglobin 11.3, platelets 117,000, sodium 142, potassium 3.6, BUN 33, creatinine 1.7, glucose 79. INPATIENT MEDICATIONS: Reviewed by myself. His Ceftriaxone was discontinued and he is now on Cefdinir. He got one dose of Ativan yesterday. His remainder of medications are unchanged as compared to yesterday. PROBLEMS: 1. Chronic allograft nephropathy with recent acute kidney injury. Creatinine has improved from 2.7 a few days ago down to 1.7 today. He is back to his baseline renal function. His kidney injury was in the setting of mild dehydration and mild obstruction along with urinary tract infection. 2. Chronic immunosuppression. He continues on his usual triple immunosuppressants of prednisone, Tacrolimus and Myfortic and no changes are being made. 3. Morganella morganii UTI, it is sensitive to the Ceftriaxone that he was receiving. There is no need for Soto catheter given that his postvoid residual scans have consistently been around 200 ml. He has a known bladder diverticulum. He is now on Cefdinir. Please dose Cefdinir for a GFR of 40. I think the appropriate dose may be 300 mg once daily. 4. Hypertension, continue with amlodipine and Carvedilol. 5. Mild urinary retention in this patient with large lower pole renal allograft cyst and bladder diverticulum. He continues on Flomax and Proscar. No need for Soto catheter at present as his postvoid residual bladder scans have consistently been averaging 200 ml. 6. Disposition. Patient is stable for discharge from a Nephrology point of view but I agree with psychiatric consultation given his erratic behavioral changes and recent hyperactivity.
[2020-09-27] MEDS: LORazepam 0.5 MG TAB PO PRN (17:42)
[2020-09-27] MEDS: QUEtiapine FUMARATE 50MG TAB PO SCH (17:42)
[2020-09-27] MEDS: amLODIPine 5 MG TAB PO SCH (21:51)
[2020-09-27 22:00] VITALS: BP 140/78
[2020-09-28 06:00] VITALS: BP 153/80
[2020-09-28] MEDS: CAPSAICIN 0.025% CR 60 GM TOP SCH ×3 (06:00→21:14)
[2020-09-28] MEDS: ACETAMINOPHEN 500 MG TAB PO SCH ×3 (06:00→21:13)
[2020-09-28 06:34] LABS: BASO % 0.5 % (0.0-1.0); EOS # 0.2 10^3/uL (0.0-0.5); EOS % 2.8 % (0.0-3.0); HEMATOCRIT 33.9 % (42.0-52.0); HEMOGLOBIN 10.9 g/dl (13.5-17.5); MEAN CORPUSCULAR HEMOGLOBIN 29.5 pg (27.0-33.0); MEAN CORPUSCULAR HGB CONC 32.2 g/dl (32.0-36.5); MEAN CORPUSCULAR VOLUME 91.6 fl (80.0-96.0); MONO # 0.5 10^3/uL (0.0-0.8); MONO % 8.4 % (2.0-8.0); NEUTROPHILS % 70.3 % (36.0-66.0); PLATELET COUNT, AUTOMATED 116 10^3/uL (150-450); WHITE BLOOD COUNT 5.7 10^3/uL (4.0-10.0)
[2020-09-28 06:46] LABS: CALCIUM LEVEL 8.8 MG/DL (8.8-10.2); CREATININE FOR GFR 1.88 MG/DL (0.70-1.30); GLOMERULAR FILTRATION RATE 38.5 (>49); POTASSIUM SERUM 3.7 MEQ/L (3.5-5.1)
[2020-09-28] MEDS: ASPIRIN 81MG ENTERIC TABLET PO SCH (09:38)
[2020-09-28] MEDS: OMEPRAZOLE 20 MG CAP PO SCH (09:38)
[2020-09-28] MEDS: CEFDINIR 300 MG CAP (OMNICEF) PO SCH ×2 (09:38→21:17)
[2020-09-28] MEDS: TAMSULOSIN 0.4 MG CAP PO SCH (09:38)
[2020-09-28] MEDS: FINASTERIDE 5 MG TAB PO SCH (09:38)
[2020-09-28] MEDS: MYFORTIC 180 MG PO SCH ×2 (09:38→21:12)
[2020-09-28] MEDS: predniSONE 5 MG TAB PO SCH (09:38)
[2020-09-28] MEDS: TACROLIMUS 0.5 MG CAP PO SCH ×2 (09:38→21:12)
[2020-09-28] MEDS: allopurinoL 100 MG TAB PO SCH (09:38)
[2020-09-28] MEDS: CARVedilol 12.5 MG TAB PO SCH ×2 (09:40→21:13)
[2020-09-28 12:54] LABS: URIC ACID 5.1 MG/DL (3.5-7.2)
--- NOTE | 2020-09-28 13:18 | IPN ---
PROGRESS NOTE DATE: 09/28/2020 Mr. Leonard is seen this morning on his bedside. He is currently sitting in the recliner chair with his feet elevated. He reports severe pain in his left ankle and inability to bear any weight. He denies any headache, nausea, vomiting, fever, chills, dyspnea, or chest pain. He has been confused at times and disoriented. PHYSICAL EXAMINATION: Temperature 97.4 degrees Fahrenheit, heart rate 80 per minute, respiratory rate 20 per minute, blood pressure 129/78 mmHg, and oxygen saturation 98% on room air. His head is atraumatic. Neck supple and without jugular venous distention (JVD) or thyroid enlargement. Pupils are equal and reactive to light, and sclerae are anicteric. His lungs sound clear to auscultation, and heart sounds are regular. Abdomen soft and nontender, and bowel sounds are normal. Transplant kidney is nontender. Extremities without any cyanosis or clubbing. His left ankle and leg have no erythema to swelling, but he is quite tender and would not let me even touch. Neurologically, he is awake, able to answer questions, but confused and disoriented. Today's labs show a WBC count 5.7, hemoglobin 10.9, hematocrit 33.9, platelets 116. Sodium 142, potassium 3.7, CO2 of 26, BUN 30, creatinine 1.88. PROBLEMS: 1. Acute renal failure superimposed on chronic kidney disease. At present, his kidney function is at about chronic baseline. His creatinine was quite high on admission and has improved. At this point, his volume status clinically seems well compensated. I do not feel that we need to change any medications; however, I have encouraged him to increase his oral fluid intake. 2. Kidney transplant status. His transplant kidney has been functioning reasonably well and should continue with chronic anti-rejection medications without any change. 3. Urinary retention. Patient has been on Flomax 0.4 mg daily and denies any difficulty urinating at this point. His postvoid residual has been less than 250 mL. He will continue with Proscar 5 mg daily and Flomax 0.4 mg daily. 4. Hypertension. Blood pressure very well controlled on current medications, including amlodipine 5 mg daily and carvedilol 12.5 mg twice a day. He is currently not on any diuretic. 5. Altered mentation. Patient does have fluctuating problems with his mentation. He has been seen by psychiatry. At this point he seems to be relatively stable. 6. Anemia. His anemia is mild and stable, and there is no need for any urgent intervention. 7. Left ankle pain. I am not sure about his left ankle pain. I will check uric acid to ensure that his uric acid level is appropriate. He does have a history of gout and has been on allopurinol 100 mg daily. There is no sign suggestive of acute gout.
--- NOTE | 2020-09-28 15:44 | IPNPDOC ---
Text Note Date of Service The patient was seen on 09/28/20. NOTE Full ortho consult note dictated. In brief, 64 M with left achilles tendon pain after increased activity the last few days. Low concern for infection, most consistent with Achilles tendinitis. Recommend rest, ice, compression, elevation. NSAIDs would be good option but unlikely in this patient given renal concerns. Ortho to sign off. Please feel free to reconsult if condition changes. In meantime, please contact with any questions - Dr. Magaña, If an emergency, please contact ortho on-call. VS,Fishbone, I+O VS, Fishbone, I+O Laboratory Tests 09/28/20 05:29 Vital Signs Date Time Temp Pulse Resp B/P (MAP) Pulse Ox O2 Delivery O2 Flow Rate FiO2 09/28/20 09:40 81 129/78 09/28/20 06:00 97.4 20 98 09/27/20 06:00 Room Air I&O- Last 24 Hours up to 6 AM 09/28/20 05:59 Intake Total 750 ml Output Total 200 ml Balance 550 ml CRUZITO MAGAÑA MD Sep 28, 2020 15:44
--- NOTE | 2020-09-28 16:17 | REP ---
INDICATION: back of ankle pain. COMPARISON: None. TECHNIQUE: Four views of the left ankle are provided. FINDINGS: There is marked soft tissue swelling in the Achilles tendon posteriorly on lateral film consistent with Achilles tendon injury or advanced tendinosis and inflammation. This should be correlated clinically. Vascular calcification is noted extensively crossing the ankles. There is Achilles calcaneal spurring. Ankle mortise is intact. There is no evidence of arthropathy or bony erosive change. IMPRESSION: There is marked swelling in and along the Achilles tendon consistent with Achilles tendon injury versus advanced tendinitis tendinosis. Correlate clinically. Extensive vascular calcification. No acute bony abnormality. <Electronically signed by Christian Poon > 09/28/20 [id number]
--- NOTE | 2020-09-28 16:18 | REP ---
INDICATION: back of ankle pain. COMPARISON: None. TECHNIQUE: Four views of the left foot are provided. FINDINGS: Four views of the left foot demonstrate extensive vascular calcification. Overall mineralization pattern is normal. Distal Achilles tendon swelling is seen as reported on the ankle series. Joint spaces are preserved. Overall mineralization pattern is normal.. No fracture or subluxation is seen. No opaque foreign body noted. IMPRESSION: Extensive vascular calcification. Swelling in the Achilles tendon as described in the ankle series. No acute bony abnormality.. <Electronically signed by Christian Poon > 09/28/20 1116
[2020-09-28] MEDS: QUEtiapine FUMARATE 50MG TAB PO SCH (17:58)
[2020-09-28] MEDS: LORazepam 0.5 MG TAB PO PRN (17:58)
[2020-09-28] MEDS: amLODIPine 5 MG TAB PO SCH (21:14)
[2020-09-28 22:00] VITALS: BP 144/79
[2020-09-29] MEDS: ACETAMINOPHEN 500 MG TAB PO SCH ×3 (05:35→21:13)
[2020-09-29 06:00] VITALS: BP 142/76
[2020-09-29] MEDS: CAPSAICIN 0.025% CR 60 GM TOP SCH ×4 (06:07→21:16)
[2020-09-29 06:10] LABS: BASO % 0.3 % (0.0-1.0); EOS # 0.1 10^3/uL (0.0-0.5); EOS % 2.2 % (0.0-3.0); HEMATOCRIT 33.9 % (42.0-52.0); HEMOGLOBIN 10.9 g/dl (13.5-17.5); LYMPH % 17.2 % (24.0-44.0); MEAN CORPUSCULAR HEMOGLOBIN 29.1 pg (27.0-33.0); MEAN CORPUSCULAR HGB CONC 32.2 g/dl (32.0-36.5); MEAN CORPUSCULAR VOLUME 90.6 fl (80.0-96.0); MONO # 0.4 10^3/uL (0.0-0.8); MONO % 7.1 % (2.0-8.0); NEUTROPHILS # 4.3 10^3/uL (1.5-8.5); PLATELET COUNT, AUTOMATED 118 10^3/uL (150-450); RED BLOOD COUNT 3.74 10^6/uL (4.30-6.10)
[2020-09-29 06:32] LABS: CALCIUM LEVEL 8.5 MG/DL (8.8-10.2); CREATININE FOR GFR 1.92 MG/DL (0.70-1.30); GLOMERULAR FILTRATION RATE 37.6 (>49); POTASSIUM SERUM 3.6 MEQ/L (3.5-5.1)
--- NOTE | 2020-09-29 09:20 | CR ---
CONSULTATION DATE: 09/28/2020 REASON FOR CONSULTATION: Left foot and ankle pain. HISTORY OF PRESENT ILLNESS: The patient is a 64-year-old male with a history of dementia and psychosis and kidney problems who has been admitted for a couple of weeks now and in the last couple of days he was noted to have increased his level of activity, ambulating on the floor and then started to have some increased pain in the left ankle, most notably over the Achilles tendon. He does have a history of gout but is not sure if this feels quite like gout. He is limited in his ability to be a historian but his is there providing information as well. Orthopedics was called because of increased pain and concern for some sort of tendinitis or Achilles tendon rupture over the left ankle. Otherwise, no other musculoskeletal complaints and no history of any trauma. He has had normal labs, no fever. The concern for infection is low. PAST MEDICAL HISTORY: Congenital kidney disease, hypertension, sarcoidosis, hyperparathyroidism, anxiety, psychosis, depression, dementia, delirium, cholangitis, choledocholithiasis. PAST SURGICAL HISTORY: Kidney transplant x2, fistula creation, left shoulder surgery, cardiac stent placement, cholecystectomy, hip surgery, multiple ERCPs. MEDICATIONS: See med req. conciliation. REVIEW OF SYSTEMS: Constitutional: Poor appetite. Denies any fevers, chills or night sweats. Eyes: Denies any pain or vision change. ENT: Occasional headaches. Skin: Reports some rash and itching and bruising on the right arm. Pulmonary: Denies any dyspnea or cough. Cardiovascular: Denies any chest pain or palpitations. Has occasional diarrhea. Genitourinary: Denies any dysuria, increased frequency or incontinence. Neurologic: He has baseline changes in his speech and confusion. Psych: Depression and memory issues. PHYSICAL EXAMINATION: He is alert and in no acute distress but somewhat disoriented. ENT: Atraumatic. Mucous membranes are moist and pink. Cardiovascular: Regular rate and rhythm. Respiratory: Equal chest raise and fall. Abdomen is nontender and nondistended. Skin: Dry. Psych: Flat affect. Extremity exam: Patient had a focused evaluation of the left lower extremity: Please note the patient was not very compliant with the exam and demonstrated hyperesthesia in a non-anatomic distribution. Patient had tenderness to palpation over the Achilles tendon. He had no tenderness to palpation over the ankle joint itself. He would not tolerate any motion of the ankle secondary to pain over the Achilles. There is minimal redness over this region. There is no effusion of the ankle joint. No other areas of tenderness to palpation. Motor and sensory exam is difficult secondary to patient's compliance. Otherwise, warm and well-perfused and brisk capillary refill. Review of the radiographs of the left foot and ankle demonstrates no acute osseous abnormalities or soft tissue swelling. LABORATORY DATA: White count is 5.7 today and also please note that he has been afebrile. ASSESSMENT: This is a 64-year-old male with baseline dementia/psychosis with left foot and ankle pain that is most consistent with an Achilles tendinitis. There is no swelling, no erythema, a very low concern for an infection. Recommended treatment is rest, ice, compression, elevation, and nonsteroidal anti-inflammatories if appropriate although I understand this is unlikely because of his renal problems. The patient was very active yesterday and my assessment is that he will improve with rest, ice, compression and elevation treatment in the next few days. No further evaluation by Orthopedics is necessary at this point. If there are any further concerns, please feel free to contact Orthopedics for a new consult.
[2020-09-29] MEDS: predniSONE 5 MG TAB PO SCH (09:45)
[2020-09-29] MEDS: TACROLIMUS 0.5 MG CAP PO SCH ×2 (09:45→21:13)
[2020-09-29] MEDS: TAMSULOSIN 0.4 MG CAP PO SCH (09:45)
[2020-09-29] MEDS: FINASTERIDE 5 MG TAB PO SCH (09:45)
[2020-09-29] MEDS: ASPIRIN 81MG ENTERIC TABLET PO SCH (09:45)
[2020-09-29] MEDS: CARVedilol 12.5 MG TAB PO SCH ×2 (09:46→21:13)
[2020-09-29] MEDS: allopurinoL 100 MG TAB PO SCH (09:46)
[2020-09-29] MEDS: MYFORTIC 180 MG PO SCH ×2 (09:46→21:14)
[2020-09-29] MEDS: OMEPRAZOLE 20 MG CAP PO SCH (09:46)
[2020-09-29] MEDS: CEFDINIR 300 MG CAP (OMNICEF) PO SCH (09:48)
[2020-09-29 14:00] VITALS: BP 144/72
[2020-09-29] MEDS ORDERED: SERTRALINE HCL 50 MG TAB PO ONE (14:50)
--- NOTE | 2020-09-29 16:57 | IPNPDOC ---
Subjective Date Seen The patient was seen on 09/28/20. Subjective Chief Complaint/HPI Patient complained of severe pain a the left ankle just above the heel. Even touching his foot is very painful. He cannot bear weight on that foot. As per nurses had a good night and slept. He also complained of headache and had an episodes of Shivering. Continues to have poor oral intake. Objective Physical Examination General Exam: Positive: Alert, Cooperative, No Acute Distress ENT Exam: Positive: Atraumatic, Mucous membr. moist/pink, Pharynx Normal Neck Exam: Positive: Other (tenderness at the back and sides of the neck.) Chest Exam: Positive: Clear to auscultation, Normal air movement Heart Exam: Positive: Rate Normal, Regular Rhythm, Normal S1, Normal S2; Negative: Murmurs, Rubs Telemetry: Positive: No significant arrhythmia Abdomen Exam: Positive: Normal bowel sounds, Soft; Negative: Tenderness, Hepatospenomegaly Extremity Exam: Positive: Tenderness (left back of ankle), Swelling (left back of ankle); Negative: Clubbing, Cyanosis, Edema Psych Exam: Positive: Oriented x 3 Assessment /Plan Assessment 64 year old male with h/o congenital kidney disease with Depression, unspecified psychosis, likely underlying Dementia, following with Dr Grace since last yea r, 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 This reports started after the second dose of COVID vaccine along with diarrhea and a skin rash. Had UTI after catheterization. Now with left ankle pain. Left ankle pain likely achilis tendinitis will get xray of the ankle/ foot will consult ortho UTI Fever on 09/23/20 Had recent catheterization. kade. cefdinir Neck pain As per he has spondylosis and often has headaches and neck pain at home also. will give capsicin cream and tylenol. Acute on chronic delirium with possible underlying dementia decompensated severely on 09/23/20. Needing haldol IV/ IM and po. also had to start him on iv ativan. Discussed with Dr Rosen on 09/23/20 he recommended stopping the seroquel, zoloft, temazepam, ativan, haldol ,atarax and all other nonessential meds and allow few days to come off the meds. He did say it could be rough and his delirium could remain very bad but recommended not to use any meds unless he becomes a threat to himself or others. I have stopped all psychotropic meds. Had to give ativan po last night as very restless, could not settle down walking all day. Have consulted Dr Grace. AZUCENA on CKD baseline creatinine around 2.0 likely due to obstructive uropathy and intermittently get dry due to poor oral intake when he becomes delirious CT abdomen had show some hydronephrosis in the transplant so cote was placed with improved creatinine bladder Us shows Chronic bladder wall thickening and large left bladder diverticulum causing incomplete emptying and significant postvoid residual volume. Also Has a large cyst in the lower pole of the transplant kidney which may be causing obstruction. This needs to be drained as outpatient by IR in [place]. Nephro is following following Chronic Thrombocytopenia not on heparin. Lowest in prior admission was in 60K Renal transplant status with allograft nephropathy with urinary retention. continue immunosuppressants as per home. HTN amlodipine, coreg Hyperuricemia/gout allopurinol Skin rash with severe itching after the vaccine. improved. CAD s/p stents asa, statin, coreg. Plan/VTE VTE Prophylaxis Ordered?: Yes VS, I&O, 24H, Fishbone Vital Signs/I&O Vital Signs Date Time Temp Pulse Resp B/P (MAP) Pulse Ox O2 Delivery O2 Flow Rate FiO2 09/29/20 14:00 98.1 67 17 144/72 (96) 96 Room Air I&O- Last 24 Hours up to 6 AM 09/29/20 06:00 Intake Total 780 ml Output Total 200 ml Balance 580 ml Laboratory Data 24H LABS Laboratory Tests 2 09/29/20 05:41: Immature Granulocyte % (Auto) 1.2, Neutrophils (%) (Auto) 72.0H, Lymphocytes (%) (Auto) 17.2L, Monocytes (%) (Auto) 7.1, Eosinophils (%) (Auto) 2.2, Basophils (%) (Auto) 0.3, Neutrophils # (Auto) 4.3, Lymphocytes # (Auto) 1.0L, Monocytes # (Auto) 0.4, Eosinophils # (Auto) 0.1, Basophils # (Auto) 0.0, Nucleated Red Blood Cells % (auto) 0.0, Anion Gap 6L, Glomerular Filtration Rate 37.6L, Calcium Level 8.5L CBC/BMP Laboratory Tests 09/29/20 05:41 Microbiology Microbiology 09/24/20 Urine Culture - Final, Complete Morganella Morganii Ssp NADINE Escalera MD Sep 29, 2020 16:57
--- NOTE | 2020-09-29 17:39 | IPNPDOC ---
Subjective Date Seen The patient was seen on 09/29/20. Subjective Chief Complaint/HPI continues to have severe pain at the back of left ankle and has difficulty in bearing weight. His Neck pain seems to be a little better. Slept well last night. Has been sitting up in chair all day. Objective Physical Examination General Exam: Positive: Alert, Cooperative, No Acute Distress ENT Exam: Positive: Atraumatic, Mucous membr. moist/pink, Pharynx Normal Neck Exam: Positive: Other (tenderness at the back and sides of the neck.) Chest Exam: Positive: Clear to auscultation, Normal air movement Heart Exam: Positive: Rate Normal, Regular Rhythm, Normal S1, Normal S2; Negative: Murmurs, Rubs Telemetry: Positive: No significant arrhythmia Abdomen Exam: Positive: Normal bowel sounds, Soft; Negative: Tenderness, Hepatospenomegaly Extremity Exam: Positive: Tenderness (left back of ankle), Swelling (left back of ankle); Negative: Clubbing, Cyanosis, Edema Psych Exam: Positive: Oriented x 3 Assessment /Plan Assessment 64 year old male with h/o congenital kidney disease with Depression, unspecified psychosis, likely underlying Dementia, following with Dr Grace since last year, 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 This reports started after the second dose of COVID vaccine along with diarrhea and a skin rash. Had UTI after catheterization. Now with left ankle pain. Left Achillis tendinitis. xray of the ankle/ foot reviewed Appreciate Dr Hopkins's input will continue with ice, support bandaging, rest and keep off feet as much as possible. unfortunately cannot use NSAIDS due to CKD I discussed abut increasing the prednisone to 3 days or so but did not want it as she is concerned that it will again make him become hyper and agitated. will continue with scheduled tylenol. UTI Fever on 09/23/20 Had recent catheterization. UC kade. finished antibiotics. Neck pain seems better. As per he has spondylosis and often has headaches and neck pain at home also. capsicin cream and tylenol. Acute on chronic delirium with possible underlying dementia decompensated severely on 09/23/20. Needing haldol IV/ IM and po. also had to start him on iv ativan. Discussed with Dr Rosen on 09/23/20 he recommended stopping the seroquel, zoloft, temazepam, ativan, haldol ,atarax and all other nonessential meds and allow few days to come off the meds. He did say it could be rough and his delirium could remain very bad but recommended not to use any meds unless he becomes a threat to himself or others. I had stopped all psychotropic meds as per Dr Rosen then restarted seroquel 50 and ativan 0.5 at night on 09/26/20 as he was becoming uncontrollable seems to be sleeping well at night. Have consulted Dr Grace. AZUCENA on CKD baseline creatinine around 2.0 likely due to obstructive uropathy and intermittently get dry due to poor oral intake when he becomes delirious CT abdomen had show some hydronephrosis in the transplant so cote was placed with improved creatinine bladder Us shows Chronic bladder wall thickening and large left bladder diverticulum causing incomplete emptying and significant postvoid residual volume. Also Has a large cyst in the lower pole of the transplant kidney which may be causing obstruction. This needs to be drained as outpatient by IR in [place]. Nephro is following following Chronic Thrombocytopenia not on heparin. Lowest in prior admission was in 60K Renal transplant status with allograft nephropathy with urinary retention. continue immunosuppressants as per home. HTN amlodipine, coreg Hyperuricemia/gout allopurinol Skin rash with severe itching after the vaccine. improved. CAD s/p stents asa, statin, coreg. Plan/VTE VTE Prophylaxis Ordered?: Yes VS, I&O, 24H, Fishbone Vital Signs/I&O Vital Signs Date Time Temp Pulse Resp B/P (MAP) Pulse Ox O2 Delivery O2 Flow Rate FiO2 09/29/20 14:00 98.1 67 17 144/72 (96) 96 Room Air I&O- Last 24 Hours up to 6 AM 09/29/20 06:00 Intake Total 780 ml Output Total 200 ml Balance 580 ml Laboratory Data 24H LABS Laboratory Tests 2 09/29/20 05:41: Immature Granulocyte % (Auto) 1.2, Neutrophils (%) (Auto) 72.0H, Lymphocytes (%) (Auto) 17.2L, Monocytes (%) (Auto) 7.1, Eosinophils (%) (Auto) 2.2, Basophils (%) (Auto) 0.3, Neutrophils # (Auto) 4.3, Lymphocytes # (Auto) 1.0L, Monocytes # (Auto) 0.4, Eosinophils # (Auto) 0.1, Basophils # (Auto) 0.0, Nucleated Red Blood Cells % (auto) 0.0, Anion Gap 6L, Glomerular Filtration Rate 37.6L, Calcium Level 8.5L CBC/BMP Laboratory Tests 09/29/20 05:41 Microbiology Microbiology 09/24/20 Urine Culture - Final, Complete Morganella Morganii Ssp NADINE Escalera MD Sep 29, 2020 17:39
[2020-09-29] MEDS: LORazepam 0.5 MG TAB PO PRN (17:58)
[2020-09-29] MEDS: QUEtiapine FUMARATE 50MG TAB PO SCH (17:58)
--- NOTE | 2020-09-29 20:55 | IPN ---
PROGRESS NOTE DATE: 09/29/2020 SUBJECTIVE: Mr. Leonard is seen this morning on his bedside. He was still sleeping and I woke him up. He reports improved pain in his left ankle, but not resolved as yet. He continues to have difficulty with ambulation. Denies any dyspnea, chest pain, fever or chills. PHYSICAL EXAMINATION: VITALS: Temperature 98.4 degrees Fahrenheit, heart rate 64 per minute, respiratory rate 16 per minute, blood pressure 142/76 mmHg and oxygen saturation 96% on room air. HEENT: Head is atraumatic. Neck is supple and without JVD or thyroid enlargement. LUNGS: Clear to auscultation. HEART: Sounds are regular. ABDOMEN: Soft and nontender. Bowel sounds are normal. Transplanted kidney is nontender. EXTREMITIES: Without any cyanosis or clubbing. There is no erythema or swelling of his left ankle. LABORATORY STUDIES: Today's labs show WBC 6.0, hemoglobin 10.9, hematocrit 33.9. Sodium 140, potassium 3.6, CO2 26, BUN 30, creatinine 1.92, calcium 8.4 and glucose 84. PROBLEMS: 1. Kidney transplant status: Kidney function has been mostly stable. Chronic anti-rejection medications will remain unchanged. 2. Acute kidney injury superimposed on chronic kidney disease: Most likely this is prerenal. Patient has been eating and drinking much less than usual. I have encouraged him to continue with liberal oral fluid intake and nursing staff should also encourage him. 3. Anemia: At present his anemia is stable and does not need any urgent intervention. 4. Hypertension: Blood pressure is very well controlled on current medications. 5. Altered mentation: He remains somewhat depressed and disoriented at times. Psych follow-up is anticipated soon.
[2020-09-29] MEDS: amLODIPine 5 MG TAB PO SCH (21:13)
[2020-09-29 22:00] VITALS: BP 133/78
[2020-09-30] MEDS: CAPSAICIN 0.025% CR 60 GM TOP SCH ×3 (05:26→21:18)
[2020-09-30] MEDS: ACETAMINOPHEN 500 MG TAB PO SCH ×3 (05:28→21:23)
[2020-09-30 06:00] VITALS: BP 152/84
[2020-09-30 06:36] LABS: BASO % 0.4 % (0.0-1.0); EOS # 0.2 10^3/uL (0.0-0.5); EOS % 3.4 % (0.0-3.0); HEMOGLOBIN 10.6 g/dl (13.5-17.5); LYMPH # 1.1 10^3/uL (1.5-5.0); LYMPH % 15.8 % (24.0-44.0); MEAN CORPUSCULAR HEMOGLOBIN 29.2 pg (27.0-33.0); MEAN CORPUSCULAR HGB CONC 32.1 g/dl (32.0-36.5); MEAN CORPUSCULAR VOLUME 90.9 fl (80.0-96.0); MONO # 0.5 10^3/uL (0.0-0.8); MONO % 6.8 % (2.0-8.0); NEUTROPHILS # 5.1 10^3/uL (1.5-8.5); NEUTROPHILS % 72.2 % (36.0-66.0); PLATELET COUNT, AUTOMATED 131 10^3/uL (150-450); RED BLOOD COUNT 3.63 10^6/uL (4.30-6.10)
[2020-09-30 07:01] LABS: CALCIUM LEVEL 8.7 MG/DL (8.8-10.2); CREATININE FOR GFR 2.06 MG/DL (0.70-1.30); GLOMERULAR FILTRATION RATE 34.7 (>49); POTASSIUM SERUM 3.3 MEQ/L (3.5-5.1)
[2020-09-30] MEDS ORDERED: POTASSIUM CHLORIDE 10 MEQ SR TABLET PO ONE (09:00)
[2020-09-30] MEDS: FINASTERIDE 5 MG TAB PO SCH (09:37)
[2020-09-30] MEDS: TACROLIMUS 0.5 MG CAP PO SCH ×2 (09:37→21:22)
[2020-09-30] MEDS: allopurinoL 100 MG TAB PO SCH (09:37)
[2020-09-30] MEDS: ASPIRIN 81MG ENTERIC TABLET PO SCH (09:37)
[2020-09-30] MEDS: TAMSULOSIN 0.4 MG CAP PO SCH (09:38)
[2020-09-30] MEDS: SERTRALINE HCL 50 MG TAB PO SCH (09:38)
[2020-09-30] MEDS: predniSONE 5 MG TAB PO SCH (09:39)
[2020-09-30] MEDS: OMEPRAZOLE 20 MG CAP PO SCH (09:39)
[2020-09-30] MEDS: CARVedilol 12.5 MG TAB PO SCH ×2 (09:39→21:23)
[2020-09-30] MEDS: MYFORTIC 180 MG PO SCH ×2 (09:40→21:22)
[2020-09-30] MEDS: KCL 20MEQ IN 0.45NS 1000ML 1,000 ML IV SCH ×2 (10:25→18:46)
--- NOTE | 2020-09-30 14:34 | IPNPDOC ---
Subjective Date Seen The patient was seen on 09/30/20. Subjective Chief Complaint/HPI Continues to have severe pain in the left ankle and unable to bear weight. Mood has been ok, and has been sleeping as per nurses. Answers appropriately to questions. Always alert and oriented x 3. Though says only few words at a time and there is slight delay in answering. Objective Physical Examination General Exam: Positive: Alert, Cooperative, No Acute Distress ENT Exam: Positive: Atraumatic, Mucous membr. moist/pink, Pharynx Normal Neck Exam: Positive: Other (tenderness at the back and sides of the neck.) Chest Exam: Positive: Clear to auscultation, Normal air movement Heart Exam: Positive: Rate Normal, Regular Rhythm, Normal S1, Normal S2; Negative: Murmurs, Rubs Telemetry: Positive: No significant arrhythmia Abdomen Exam: Positive: Normal bowel sounds, Soft; Negative: Tenderness, Hepatospenomegaly Extremity Exam: Positive: Tenderness (left back of ankle), Swelling (left back of ankle); Negative: Clubbing, Cyanosis, Edema Psych Exam: Positive: Oriented x 3 Assessment /Plan Assessment 64 year old male with h/o congenital kidney disease with Depression, unspecified psychosis, likely underlying Dementia, following with Dr Grace since last year, 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 This reports started after the second dose of COVID vaccine along with diarrhea and a skin rash. Had UTI after catheterization. Now with left ankle pain. Left Achillis tendinitis. xray of the ankle/ foot reviewed Appreciate Dr Hopkins's input will continue with ice, support bandaging, rest and keep off feet as much as possible. unfortunately cannot use NSAIDS due to CKD I discussed abut increasing the prednisone for 3 days or so but did not want it as she is concerned that it will again make him become hyper and ji tated. will continue with scheduled tylenol. UTI Fever on 09/23/20 Had recent catheterization. UC kade. finished antibiotics. Neck pain seems better. As per he has spondylosis and often has headaches and neck pain at home also. capsicin cream and tylenol. Acute on chronic delirium with possible underlying dementia decompensated severely on 09/23/20. Needing haldol IV/ IM and po. also had to start him on iv ativan. Discussed with Dr Rosen on 09/23/20 he recommended stopping the seroquel, zoloft, temazepam, ativan, haldol ,atarax and all other nonessential meds and allow few days to come off the meds. He did say it could be rough and his delirium could remain very bad but recommended not to use any meds unless he becomes a threat to himself or others. I had stopped all psychotropic meds as per Dr Rosen then restarted seroquel 50 and ativan 0.5 at night on 09/26/20 as he was becoming uncontrollable. I also restartede zoloft 50 mg on 09/30/20. seems to be sleeping well at night. Have consulted Dr Grace. AZUCENA on CKD baseline creatinine around 2.0 likely due to obstructive uropathy and intermittently get dry due to poor oral intake when he becomes delirious CT abdomen had show some hydronephrosis in the transplant so cote was placed with improved creatinine bladder Us shows Chronic bladder wall thickening and large left bladder diverticulum causing incomplete emptying and significant postvoid residual volume. Also Has a large cyst in the lower pole of the transplant kidney which may be causing obstruction. This needs to be drained as outpatient by IR in [place]. Nephro is following following Chronic Thrombocytopenia not on heparin. Lowest in prior admission was in 60K Renal transplant status with allograft nephropathy with urinary retention. continue immunosuppressants as per home. HTN amlodipine, coreg Hyperuricemia/gout allopurinol Skin rash with severe itching after the vaccine. improved. CAD s/p stents asa, statin, coreg. Plan/VTE VTE Prophylaxis Ordered?: Yes VS, I&O, 24H, Fishbone Vital Signs/I&O Vital Signs Date Time Temp Pulse Resp B/P (MAP) Pulse Ox O2 Delivery O2 Flow Rate FiO2 09/30/20 09:39 85 142/89 09/30/20 06:00 98.1 18 100 Room Air I&O- Last 24 Hours up to 6 AM 09/30/20 05:59 Intake Total 600 ml Output Total 700 ml Balance -100 ml Laboratory Data 24H LABS Laboratory Tests 2 09/30/20 05:27: Immature Granulocyte % (Auto) 1.4, Neutrophils (%) (Auto) 72.2H, Lymphocytes (%) (Auto) 15.8L, Monocytes (%) (Auto) 6.8, Eosinophils (%) (Auto) 3.4H, Basophils (%) (Auto) 0.4, Neutrophils # (Auto) 5.1, Lymphocytes # (Auto) 1.1L, Monocytes # (Auto) 0.5, Eosinophils # (Auto) 0.2, Basophils # (Auto) 0.0, Nucleated Red Blood Cells % (auto) 0.0, Anion Gap 7L, Glomerular Filtration Rate 34.7L, Calcium Level 8.7L CBC/BMP Laboratory Tests 09/30/20 05:27 Microbiology Microbiology 09/24/20 Urine Culture - Final, Complete Morganella Morganii Ssp NADINE Escalera MD Sep 30, 2020 14:34
[2020-09-30 15:00] VITALS: BP 144/66
[2020-09-30] MEDS: QUEtiapine FUMARATE 50MG TAB PO SCH (16:49)
[2020-09-30] MEDS: LORazepam 0.5 MG TAB PO PRN (16:49)
--- NOTE | 2020-09-30 19:31 | IPN ---
NEPHROLOGY PROGRESS NOTE DATE: 09/30/2020 SUBJECTIVE: Mr. Leonard is seen this morning on his bedside. He remains about the same. Nursing staff report that he has not been drinking much fluid, only a couple of sips, even with his medications. Patient denies any nausea or vomiting. He still has pain in his left ankle and has been using walker to assist in walking. PHYSICAL EXAMINATION: Temperature 98 degrees Fahrenheit, heart rate 80 per minute, respiratory rate 18 per minute, blood pressure 142/84 mmHg, oxygen saturation 100% on room air. HEAD: Atraumatic. NECK: Supple and without jugular venous distention (JVD) or thyroid enlargement. HEART SOUNDS: Regular. LUNGS: Clear to auscultation. ABDOMEN: Soft and nontender. Bowel sounds are normal. Transplant kidney is nontender. EXTREMITIES: Without any cyanosis or clubbing. SKIN: Dry and some tenting of skin is present due to dehydration. LABORATORY STUDIES: Today's labs show WBC 7.0, hemoglobin 10.6, hematocrit 33. Sodium 139, potassium 3.3, CO2 24, BUN 29, creatinine 2.0, glucose 76, calcium 8.7. PROBLEMS: 1. Acute kidney injury superimposed on chronic kidney disease. Most likely this is related to poor oral intake. Patient has been drinking minimal amount of fluid and I am starting him on intravenous (IV) fluid with half-normal saline at 100 mL/hour and will give him at least a couple of liters. His renal function will be checked again tomorrow. 2. Hypokalemia. This is also a nutritional issue and will add 20 mEq of potassium chloride in each liter of IV fluid. Electrolytes will be checked again tomorrow. 3. Gout. I do not feel that patient has gout in his left ankle. He has been on allopurinol and his uric acid level is appropriate. 4. Benign prostatic hypertrophy (BPH). Patient has been urinating well and remains on Tamsulosin and finasteride. 5. Kidney transplant status. Kidney function is slightly worse, most likely related to prerenal azotemia and we will continue with current antirejection medications. He is going to be hydrated with IV fluid and kidney function will be checked again tomorrow. 6. Anemia. His anemia has been stable and does not need any urgent intervention. 7. Altered mentation. Related to psychiatric issues and he remains on medications. We are awaiting psychiatric followup.
[2020-09-30] MEDS: amLODIPine 5 MG TAB PO SCH (21:22)
[2020-09-30 22:00] VITALS: BP 139/84
[2020-10-01] MEDS: diphenhydrAMINE CREAM 30GM TOP PRN (02:24)
[2020-10-01] MEDS: KCL 20MEQ IN 0.45NS 1000ML 1,000 ML IV SCH (05:22)
[2020-10-01] MEDS: CAPSAICIN 0.025% CR 60 GM TOP SCH ×3 (05:22→22:00)
[2020-10-01] MEDS: ACETAMINOPHEN 500 MG TAB PO SCH ×4 (05:22→22:00)
[2020-10-01 06:00] VITALS: BP 167/94
[2020-10-01 06:26] LABS: BASO % 0.3 % (0.0-1.0); EOS # 0.3 10^3/uL (0.0-0.5); EOS % 3.9 % (0.0-3.0); HEMATOCRIT 33.7 % (42.0-52.0); HEMOGLOBIN 10.9 g/dl (13.5-17.5); LYMPH % 15.9 % (24.0-44.0); MEAN CORPUSCULAR HEMOGLOBIN 29.6 pg (27.0-33.0); MEAN CORPUSCULAR HGB CONC 32.3 g/dl (32.0-36.5); MEAN CORPUSCULAR VOLUME 91.6 fl (80.0-96.0); MONO # 0.3 10^3/uL (0.0-0.8); MONO % 5.2 % (2.0-8.0); NEUTROPHILS # 4.6 10^3/uL (1.5-8.5); NEUTROPHILS % 73.1 % (36.0-66.0); PLATELET COUNT, AUTOMATED 135 10^3/uL (150-450); RED BLOOD COUNT 3.68 10^6/uL (4.30-6.10); WHITE BLOOD COUNT 6.4 10^3/uL (4.0-10.0)
[2020-10-01 06:59] LABS: CALCIUM LEVEL 8.7 MG/DL (8.8-10.2); CREATININE FOR GFR 1.66 MG/DL (0.70-1.30); GLOMERULAR FILTRATION RATE 44.5 (>49)
[2020-10-01] MEDS: MYFORTIC 180 MG PO SCH ×2 (10:06→22:14)
[2020-10-01] MEDS: TACROLIMUS 0.5 MG CAP PO SCH ×2 (10:07→22:14)
[2020-10-01] MEDS: predniSONE 5 MG TAB PO SCH (10:07)
[2020-10-01] MEDS: OMEPRAZOLE 20 MG CAP PO SCH (10:07)
[2020-10-01] MEDS: FINASTERIDE 5 MG TAB PO SCH (10:08)
[2020-10-01] MEDS: allopurinoL 100 MG TAB PO SCH (10:08)
[2020-10-01] MEDS: TAMSULOSIN 0.4 MG CAP PO SCH (10:08)
[2020-10-01] MEDS: ASPIRIN 81MG ENTERIC TABLET PO SCH (10:08)
[2020-10-01] MEDS: CARVedilol 12.5 MG TAB PO SCH ×2 (10:09→22:14)
[2020-10-01] MEDS: SERTRALINE HCL 50 MG TAB PO SCH (10:09)
--- NOTE | 2020-10-01 12:42 | IPNPDOC ---
Subjective Date Seen The patient was seen on 10/01/20. Subjective Chief Complaint/HPI Patient became agitated yesterday around 4 pm. He was insisting on walking the halls when he could not not even bear weight on his left foot. He was trying to limp about. Nurses and then had to wheel him around in the corridors in the . He refused to stay in the room so the nurses then sat him in the in the corridor outside his room. Had a good breakfast. Finished everything in his tray as per AID. he has good breakfast and lunch but does not have much for dinner. Had a good night had to give him his seroquel and ativan at 4 pm which calmed him down. This morning calm and quiet sitting in the recliner. Objective Physical Examination General Exam: Positive: Alert, Cooperative, No Acute Distress ENT Exam: Positive: Atraumatic, Mucous membr. moist/pink, Pharynx Normal Neck Exam: Positive: Other (tenderness at the back and sides of the neck.) Chest Exam: Positive: Clear to auscultation, Normal air movement Heart Exam: Positive: Rate Normal, Regular Rhythm, Normal S1, Normal S2; Negative: Murmurs, Rubs Telemetry: Positive: No significant arrhythmia Abdomen Exam: Positive: Normal bowel sounds, Soft; Negative: Tenderness, Hepatospenomegaly Extremity Exam: Positive: Tenderness (left back of ankle), Swelling (left back of ankle); Negative: Clubbing, Cyanosis, Edema Psych Exam: Positive: Oriented x 3 Assessment /Plan Assessment 64 year old male with h/o congenital kidney disease with Depression, unspecified psychosis, likely underlying Dementia, following with Dr Grace since last year, 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 This reports started after the second dose of COVID vaccine along with diarrhea and a skin rash. Had UTI after catheterization. Now with left ankle pain. Left Achillis tendinitis. xray of the ankle/ foot reviewed Appreciate Dr Hopkins's input will continue with ice, support bandaging, rest and keep off feet as much as possible. unfortunately cannot use NSAIDS due to CKD I discussed abut increasing the prednisone for 3 days or so but did not want it as she is concerned that it will again make him become hyper and agitated. will continue with scheduled tylenol. Acute on chronic delirium with possible underlying dementia decompensated severely on 09/23/20. Needing haldol IV/ IM and po. also had to start him on iv ativan. Discussed with Dr Rosen on 09/23/20 he recommended stopping the seroquel, zoloft, temazepam, ativan, haldol ,atarax and all other nonessential meds and allow few days to come off the meds. He did say it could be rough and his delirium could remain very bad but recommended not to use any meds unless he becomes a threat to himself or others. I had stopped all psychotropic meds as per Dr Rosen then restarted seroquel 50 and ativan 0.5 at night on 09/26/20 as he was becoming uncontrollable. I also restarted zoloft 50 mg on 09/30/20. seems to be sleeping well at night. Have consulted Dr Grace. She is now leaning more towards dementia. Had a video conference with patient and on 09/30/20. Will increased seroquel to 100 mg . still does not feel he is safe to take home at this point as he was trying to climb out of the window, and walks about all night and she is afraid he is going to wander out. 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 Also Has a large cyst in the lower pole of the transplant kidney which may be causing obstruction. This needs to be drained as outpatient by IR in [place]. Nephro is following following Now back on IVF from 09/30. Creatinine again better today. UTI Fever on 09/23/20 Had recent catheterization. UC kade. finished antibiotics. Neck pain seems better. As per he has spondylosis and often has headaches and neck pain at home also. capsicin cream and tylenol. Chronic Thrombocytopenia not on heparin. Lowest in prior admission was in 60K Renal transplant status with allograft nephropathy with urinary retention. continue immunosuppressants as per home. HTN amlodipine, coreg Hyperuricemia/gout allopurinol Skin rash with severe itching after the vaccine. improved. CAD s/p stents asa, statin, coreg. Plan/VTE VTE Prophylaxis Ordered?: Yes VS, I&O, 24H, Fishbone Vital Signs/I&O Vital Signs Date Time Temp Pulse Resp B/P (MAP) Pulse Ox O2 Delivery O2 Flow Rate FiO2 10/01/20 10:09 77 121/82 10/01/20 06:00 98.5 18 97 Room Air I&O- Last 24 Hours up to 6 AM 10/01/20 06:00 Intake Total 1450 ml Output Total 1275 ml Balance 175 ml Laboratory Data 24H LABS Laboratory Tests 2 10/01/20 05:30: Immature Granulocyte % (Auto) 1.6, Neutrophils (%) (Auto) 73.1H, Lymphocytes (%) (Auto) 15.9L, Monocytes (%) (Auto) 5.2, Eosinophils (%) (Auto) 3.9H, Basophils (%) (Auto) 0.3, Neutrophils # (Auto) 4.6, Lymphocytes # (Auto) 1.0L, Monocytes # (Auto) 0.3, Eosinophils # (Auto) 0.3, Basophils # (Auto) 0.0, Nucleated Red Blood Cells % (auto) 0.0, Anion Gap 7L, Glomerular Filtration Rate 44.5L, Calcium Level 8.7L CBC/BMP Laboratory Tests 10/01/20 05:30 Microbiology Microbiology 09/24/20 Urine Culture - Final, Complete Morganella Morganii Ssp NADINE Escalera MD Oct 01, 2020 12:42
[2020-10-01] MEDS: DICLOFENAC EPOLAMINE 1.3 % PATCH TOP SCH (13:15)
[2020-10-01 14:00] VITALS: BP 152/79
[2020-10-01] MEDS: QUEtiapine FUMARATE 100 MG TAB PO SCH (15:11)
[2020-10-01] MEDS ORDERED: LORazepam 0.5 MG TAB PO PRN ×2 (15:30→19:00)
--- NOTE | 2020-10-01 18:36 | IPN ---
NEPHROLOGY PROGRESS NOTE DATE: 10/01/2020 SUBJECTIVE: Mr. Leonard is seen this morning on his bedside. He is sitting in the chair and his is present in the room. Patient seems to be in better spirits today. He is eating much better and denies any vomiting or diarrhea. His left ankle pain persists. There is no fever or chills. PHYSICAL EXAMINATION: Temperature 98.5 degrees Fahrenheit, heart rate 76 per minute, respiratory rate 18 per minute, blood pressure 121/82 mmHg, oxygen saturation 97% on room air. HEAD: Atraumatic. NECK: Supple and without jugular venous distention (JVD) or thyroid enlargement. HEART SOUNDS: Regular. LUNGS: Clear to auscultation. ABDOMEN: Soft and nontender. Bowel sounds are present. Transplant kidney is nontender. EXTREMITIES: Without any cyanosis or clubbing. NEUROLOGIC: He is awake and without focal deficits. He is in better spirits today. LABORATORY DATA: Today's labs show WBC 6.4, hemoglobin 10.9, hematocrit 33.7. Sodium 139, potassium 4.0, BUN 23, creatinine 1.66, glucose 73, calcium 8.7. PROBLEMS: 1. Acute kidney injury superimposed on chronic kidney disease. This was related to decreased oral intake and dehydration. Intravenous (IV) fluid was started yesterday and kidney function has improved. Patient is being encouraged to continue with liberal fluid intake. His is also being advised to ensure adequate oral fluid intake. IV fluids are now being stopped. 2. Kidney transplant status. His kidney transplant has been functioning very well and creatinine is now at baseline. Electrolytes are stable. He will continue with chronic immunosuppressive therapy. 3. Left ankle pain. He probable has tendonitis in his Achilles tendon. I do not feel that he has gout as there is no tenderness on the ankle joints. Will give him a trial of diclofenac patch, which is available in the hospital. I would not like him to have any systemic nonsteroidal antiinflammatories (NSAIDs) due to acute kidney injury. If this patch helps, then we can prescribe gel as an outpatient, which is not available in the hospital. 4. Anemia. His anemia is stable and does not need any intervention. 5. Psychiatric issues. Patient is now back on his psychiatric medications, including Seroquel and trazodone. He seems to be doing better today. 6. Hypertension. Blood pressure much better controlled on current medications. DISPOSITION: Patient seems to be doing much better and can probably be discharged to home tomorrow with followup as an outpatient.
[2020-10-01] MEDS ORDERED: LORazepam 2 MG/ML VIAL IV STA (18:39)
[2020-10-01] MEDS ORDERED: LORazepam 2 MG/ML VIAL As Ordered ONE (18:51)
[2020-10-01 22:00] VITALS: BP 148/85
[2020-10-01] MEDS: amLODIPine 5 MG TAB PO SCH (22:14)
[2020-10-02] MEDS: ACETAMINOPHEN 500 MG TAB PO SCH ×3 (05:14→20:03)
[2020-10-02] MEDS: CAPSAICIN 0.025% CR 60 GM TOP SCH ×3 (05:15→20:05)
[2020-10-02 06:00] VITALS: BP 153/88
[2020-10-02] MEDS: ASPIRIN 81MG ENTERIC TABLET PO SCH (09:41)
[2020-10-02] MEDS: TAMSULOSIN 0.4 MG CAP PO SCH (09:42)
[2020-10-02] MEDS: FINASTERIDE 5 MG TAB PO SCH (09:42)
[2020-10-02] MEDS: CARVedilol 12.5 MG TAB PO SCH ×2 (09:42→20:04)
[2020-10-02] MEDS: predniSONE 5 MG TAB PO SCH (09:42)
[2020-10-02] MEDS: TACROLIMUS 0.5 MG CAP PO SCH ×2 (09:42→20:03)
[2020-10-02] MEDS: SERTRALINE HCL 50 MG TAB PO SCH (09:42)
[2020-10-02] MEDS: allopurinoL 100 MG TAB PO SCH (09:42)
[2020-10-02] MEDS: OMEPRAZOLE 20 MG CAP PO SCH (09:43)
[2020-10-02] MEDS: MYFORTIC 180 MG PO SCH ×2 (09:43→20:03)
[2020-10-02] MEDS: DICLOFENAC EPOLAMINE 1.3 % PATCH TOP SCH (09:52)
[2020-10-02] MEDS: diphenhydrAMINE CREAM 30GM TOP PRN (11:16)
--- NOTE | 2020-10-02 13:20 | IPNPDOC ---
Text Note Date of Service The patient was seen on 10/02/20. NOTE Subjective: -Temperament is much improved today, cooperative, pleasant, oriented this morning Objective: General: Alert, Cooperative, No Acute Distress ENT: Atraumatic, Mucous membr. moist/pink, Pharynx Normal Chest: Clear to auscultation, Normal air movement Heart: Rate Normal, Regular Rhythm, Normal S1, Normal S2, no noted murmurs Abdomen: Normal bowel sounds, soft, NTND Extremities: L posterior able pain, has eyal bandage with some swelling of L ankle, otherwise without edema bilaterally Psych Exam: AO x 3 Labs: Reviewed Assessment: 64 year old M with h/o congenital kidney disease s/p kidney transplant x 2 now with chronic allograft nephropathy with baseline creatinine of 1.8 presented to the ED with acute onset behavioral changes over the past 2 weeks on likely underlying dementia, and follows with Dr Grace since last year, with the reporting that it started after the second dose of COVID vaccine along with diarrhea and a skin rash and was found with a UTI and AZUCENA on CKD with couse now c/b L ankle tendonitis. Left Achillis tendinitis. -xray of the ankle/ foot reviewed -Appreciate Dr Hopkins's input -will continue with ice, support bandaging, rest and keep off feet as much as possible. -continue topical NSAID per nephrology -Dr Leal discussed increasing the prednisone for 3 days or so but did not want it as she is concerned that it will again make him become hyper and ji tated. -will continue with scheduled tylenol. Acute on chronic delirium with possible underlying dementia -decompensated severely on 09/23/20. Needing haldol IV/ IM and po. also had to start him on iv ativan. -Discussed with Dr Rosen on 09/23/20 he recommended stopping the seroquel, zoloft, temazepam, ativan, haldol ,atarax and all other nonessential meds and allow few days to come off the meds. He did say it could be rough and his delirium could remain very bad but recommended not to use any meds unless he becomes a threat to himself or others. -Dr. eLal had stopped all psychotropic meds as per Dr Rosen then restarted seroquel 50 and ativan 0.5 at night on 09/26/20 as he was becoming uncontrollable. Then restarted zoloft 50 mg on 09/30/20. seems to be sleeping well at night. -Now consulted Dr Grace. She is now leaning more towards dementia. Had a video conference with patient and on 09/30/20 and recommended increasing seroquel to 100 mg . still does not feel he is safe to take home at this point as he was trying to climb out of the window, and walks about all night and she is afraid he is going to wander out. 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 -This needs to be drained as outpatient by IR in [place]. -Nephro is following UTI Fever on 09/23/20 Had recent catheterization. UC morganella s/p antibiotic course. Neck pain, much improved -As per he has spondylosis and often has headaches and neck pain at home also. -capsicin cream and tylenol. Chronic Thrombocytopenia -not on heparin. -Lowest in prior admission was in 60K Renal transplant status with allograft nephropathy with urinary retention. -continue immunosuppressants as per home. HTN -amlodipine, coreg Hyperuricemia/gout -allopurinol Skin rash with severe itching after the vaccine. -improved -PRN benadryl cream CAD s/p stents -asa, statin, coreg VS,Fishbone, I+O VS, Fishbone, I+O Vital Signs Date Time Temp Pulse Resp B/P (MAP) Pulse Ox O2 Delivery O2 Flow Rate FiO2 10/02/20 09:42 80 145/81 10/02/20 06:00 98.0 18 96 10/01/20 06:00 Room Air I&O- Last 24 Hours up to 6 AM 10/02/20 06:00 Intake Total 780 ml Output Total 600 ml Balance 180 ml BERHANE PABLO MD 29, 2021 13:20
--- NOTE | 2020-10-02 13:39 | IPN ---
NEPHROLOGY PROGRESS NOTE DATE: 10/02/2020 SUBJECTIVE: Mr. Leonard is seen this morning on his bedside. He is sitting in the recliner chair. Nursing staff report that his left ankle was wrapped in Maikel bandage yesterday after patient refused the pain patch. Patient denies any nausea or vomiting. He has no dyspnea or chest pain. PHYSICAL EXAMINATION: Temperature 98.0 degrees Fahrenheit, heart rate 80 per minute, respiratory rate 18 per minute, blood pressure 145/80 mmHg, oxygen saturation 96% on room air. HEAD: Atraumatic. NECK: Supple and without jugular venous distention (JVD) or thyroid enlargement. HEART SOUNDS: Regular with systolic murmur grade 2/6. LUNGS: Clear to auscultation. ABDOMEN: Soft and nontender. Bowel sounds are present. Transplant kidney nontender. EXTREMITIES: Without any cyanosis or clubbing. I removed the Maikel bandage from his left ankle. He is still quite tender at the Achilles tendon. There is no tenderness at the ankle joint itself. His forefoot is slightly swollen due to Maikel wrap. LABORATORY DATA: Patient did not have any new labs done today. PROBLEMS: 1. Kidney transplant status. Kidney function has been stable and patient will continue with chronic antirejection medications. 2. Acute on chronic kidney disease. His creatinine increased to 2.0 on September 30, 2020, which did come down to 1.66 yesterday after intravenous (IV) fluid hydration. Patient is being advised to continue with adequate oral intake. We will check his renal profile tomorrow if he is still here. 3. Left ankle pain. Most likely he has tendonitis in his Achilles tendon. I do not feel he has gout, as his left ankle is not swollen or red. There is no tenderness at the joint itself. We have ordered diclofenac patch for his left Achilles tendon and nursing staff is going to apply it today. Yesterday, the patient refused and I have talked to him. He is now willing to proceed with it. 4. Anemia. His anemia has been stable and does not need any intervention. 5. Hypertension. Blood pressure is also well-controlled and will continue with current antihypertensive medications.
[2020-10-02 14:00] VITALS: BP 138/70
[2020-10-02] MEDS: QUEtiapine FUMARATE 100 MG TAB PO SCH (15:08)
[2020-10-02] MEDS: amLODIPine 5 MG TAB PO SCH (20:04)
[2020-10-02 22:00] VITALS: BP 149/85
[2020-10-03] MEDS: CAPSAICIN 0.025% CR 60 GM TOP SCH ×2 (05:06→13:04)
[2020-10-03] MEDS: ACETAMINOPHEN 500 MG TAB PO SCH ×2 (05:07→13:04)
[2020-10-03 06:00] VITALS: BP 139/55
[2020-10-03] MEDS: SERTRALINE HCL 50 MG TAB PO SCH (09:04)
[2020-10-03] MEDS: FINASTERIDE 5 MG TAB PO SCH (09:04)
[2020-10-03 09:05] VITALS: BP 134/78
[2020-10-03] MEDS: OMEPRAZOLE 20 MG CAP PO SCH (09:05)
[2020-10-03] MEDS: CARVedilol 12.5 MG TAB PO SCH (09:05)
[2020-10-03] MEDS: ASPIRIN 81MG ENTERIC TABLET PO SCH (09:05)
[2020-10-03] MEDS: TACROLIMUS 0.5 MG CAP PO SCH (09:05)
[2020-10-03] MEDS: predniSONE 5 MG TAB PO SCH (09:05)
[2020-10-03] MEDS: MYFORTIC 180 MG PO SCH (09:05)
[2020-10-03] MEDS: allopurinoL 100 MG TAB PO SCH (09:05)
[2020-10-03] MEDS: TAMSULOSIN 0.4 MG CAP PO SCH (09:05)
[2020-10-03] MEDS: DICLOFENAC EPOLAMINE 1.3 % PATCH TOP SCH (09:06)
[2020-10-03 09:21] LABS: HEMATOCRIT 35.7 % (42.0-52.0); HEMOGLOBIN 11.3 g/dl (13.5-17.5); MEAN CORPUSCULAR HEMOGLOBIN 29.4 pg (27.0-33.0); MEAN CORPUSCULAR HGB CONC 31.7 g/dl (32.0-36.5); MEAN CORPUSCULAR VOLUME 92.7 fl (80.0-96.0); PLATELET COUNT, AUTOMATED 154 10^3/uL (150-450); RED BLOOD COUNT 3.85 10^6/uL (4.30-6.10); WHITE BLOOD COUNT 6.5 10^3/uL (4.0-10.0)
[2020-10-03 09:25] LABS: ALBUMIN 3.1 GM/DL (3.2-5.2); CALCIUM LEVEL 9.3 MG/DL (8.8-10.2); CREATININE FOR GFR 1.64 MG/DL (0.70-1.30); GLOMERULAR FILTRATION RATE 45.1 (>49); PHOSPHORUS LEVEL 3.4 MG/DL (2.5-4.9); POTASSIUM SERUM 3.7 MEQ/L (3.5-5.1)
--- NOTE | 2020-10-03 11:29 | IPNPDOC ---
Text Note Date of Service The patient was seen on 10/03/20. NOTE Subjective: -No acute events overnight Objective: General: Alert, Cooperative, No Acute Distress ENT: Atraumatic, Mucous membr. 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 Left Achillis tendinitis. -xray of the ankle/ foot reviewed -Appreciate Dr Hopkins's input -will continue with ice, support bandaging, rest and keep off feet as much as possible. -continue topical NSAID per nephrology -Dr Leal discussed increasing the prednisone for 3 days or so but did not want it as she is concerned that it will again make him become hyper and agitated. -will continue with scheduled tylenol. Acute on chronic delirium with possible underlying dementia -decompensated severely on 09/23/20. Needing haldol IV/ IM and po. also had to start him on iv ativan. -Discussed with Dr Rosen on 09/23/20 he recommended stopping the seroquel, zoloft, temazepam, ativan, haldol ,atarax and all other nonessential meds and allow few days to come off the meds. He did say it could be rough and his delirium could remain very bad but recommended not to use any meds unless he becomes a threat to himself or others. -Dr. Leal had stopped all psychotropic meds as per Dr Rosen then restarted seroquel 50 and ativan 0.5 at night on 09/26/20 as he was becoming uncontrollable. Then restarted zoloft 50 mg on 09/30/20. seems to be sleeping well at night. -Now consulted Dr Grace. She is now leaning more towards dementia. Had a video conference with patient and on 09/30/20 and recommended increasing seroquel to 100 mg . still does not feel he is safe to take home at this point as he was trying to climb out of the window, and walks about all night and she is afraid he is going to wander out. 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 -This needs to be drained as outpatient by IR in [place]. -Nephro is following UTI Fever on 09/23/20 Had recent catheterization. UC morganella s/p antibiotic course. Neck pain, much improved -As per he has spondylosis and often has headaches and neck pain at home also. -capsicin cream and tylenol. Chronic Thrombocytopenia -not on heparin. -Lowest in prior admission was in 60K Renal transplant status with allograft nephropathy with urinary retention. -continue immunosuppressants as per home. HTN -amlodipine, coreg Hyperuricemia/gout -allopurinol Skin rash with severe itching after the vaccine. -improved -PRN benadryl cream CAD s/p stents -asa, statin, coreg VS,Fishbone, I+O VS, Fishbone, I+O Vital Signs Date Time Temp Pulse Resp B/P (MAP) Pulse Ox O2 Delivery O2 Flow Rate FiO2 10/03/20 06:00 98.1 75 19 139/55 (83) Room Air 10/02/20 22:00 98 I&O- Last 24 Hours up to 6 AM 10/03/20 05:59 Intake Total 1260 ml Output Total 0 ml Balance 1260 ml BERHANE PABLO MD Oct 03, 2020 08:43
--- NOTE | 2020-10-03 13:18 | IPN ---
NEPHROLOGY PROGRESS NOTE DATE: 10/03/2020 SUBJECTIVE: Mr. Leonard is seen this morning on his bedside. He is sitting in the chair with his feet elevated. His left ankle is wrapped in an Maikel bandage. He continues to have complaint of pain in his left ankle. Nursing staff report that he was able to walk to the bathroom with the help of a walker and shower. He ate his breakfast, about 70%. He denies any dyspnea or chest pain. He does have complaint of generalized itching, which is a chronic issue, but he would not allow the nursing staff to moisturize his skin. PHYSICAL EXAMINATION: Temperature 98 degrees Fahrenheit, heart rate 82 per minute, respiratory rate 18 per minute, blood pressure 134/78 mmHg, oxygen saturation 98% on room air. HEAD: Atraumatic. NECK: Supple and without jugular venous distention (JVD) or thyroid enlargement. HEART SOUNDS: Regular with systolic murmur grade 2/6. LUNGS: Clear to auscultation. ABDOMEN: Soft and nontender. Bowel sounds are normal. His transplant kidney has been nontender. EXTREMITIES: Without any cyanosis or clubbing. Left ankle is wrapped in Maikel bandage. NEUROLOGIC: He has no focal deficits and remains at his baseline mentation. LABORATORY DATA: Today's labs show WBC 6.5, hemoglobin 11.3, hematocrit 35.7. Sodium 142, potassium 3.7, CO2 24, BUN 23, creatinine 1.64, calcium 9.3, phosphorus 3.4. Albumin level is 3.1. PROBLEMS: 1. Kidney transplant status. Kidney function remains stable at around baseline. Patient is being encouraged to continue with liberal fluid intake. 2. Acute kidney injury superimposed on chronic kidney disease. Patient had his creatinine up to 2.0 on September 30, 2020. He was hydrated with intravenous (IV) fluid and now his kidney function has been stable. He will continue with liberal fluid intake and has not been on any diuretic. 3. Left ankle pain. Most likely, this is tendonitis. Diclofenac patch has been ordered and will be applied again today. I feel that patient should not take any systemic nonsteroidal antiinflammatories (NSAIDs). He can use topical diclofenac gel or patch. 4. Anemia. His anemia is stable at this point and does not need any urgent intervention at this point. DISPOSITION: From a renal standpoint, patient can be discharged to home and follow up as an outpatient.
--- NOTE | 2020-10-03 13:36 | DS.PDOC ---
Discharge Summary General Date of Admission Sep 16, 2020 at 13:49 Date of Discharge 10/03/2020 Attending Physician: BERHANE PABLO MD Discharge Summary PROCEDURES PERFORMED DURING STAY: None ADMITTING DIAGNOSES: UTI Metabolic encephalopathy DISCHARGE DIAGNOSES: UTI Metabolic encephalopathy i/s/o UTI with underlying chronic slowly progressive dementia Probable dementia per psychiatry AZUCENA on CKD L Achilles tendinitis Congenital kidney disease with ESRD status post Renal transplant 2 Hypertension History of Sarcoidosis CAD and MA s/p remote stents placement Secondary hyperparathyroidism Anxiety Unspecified Psychotic disorder unspecified depressive disorder likely underlying Dementia COMPLICATIONS/CHIEF COMPLAINT: Acute Kidney Injury Encephalopathy Acute. HISTORY OF PRESENT ILLNESS: 64 year old M with h/o congenital kidney disease with Depression, unspecified psychosis, likely underlying Dementia, following with Dr Grace since last year, ESRD s/p kidney transplant x 2 now with chronic allograft nephropathy with Baseline creatinine of 1.8 presented to the ED with acute onset behavioral changes over 2 weeks. As per patient received his second dose of the COVID vaccine 2 weeks prior. After that he started getting quieter, more withdrawn and it seemed like he was getting depressed. She also felt that he may be hearing the voices again. She discussed these changes with Dr Grace 2 weeks ago and changes were made to his medications. His Zoloft was increased from 50 mg to 100 mg his seroquel was increased in that he was started on morning dose of seroquel 12.5 in addition to the evening 50 mg and then it was increased to 25 mg last week. There was not much improvement in his mental state. He was becoming restless at night going up and down. So she spoke with Dr Grace again and was given temazepam 15 mg at bed time after which he was minimally verbal and in a confused state and was brought to the ED. HOSPITAL COURSE: On admission he was found to have a UTI and was fully treated for a Morganella UTI, had an AZUCENA on CKD and nephrology was consulted and has persistent altered mentation for which psychiatry was officially consulted. His AZUCENA improved and he was continued on his antirejection medications and psychiatry adjusted his medications until mentation improved tremendously. Dr. Grace did caution that he likely has progressive dementia and not just acute metabolic encephalopathy. His hospital course was c/b L ankle pain on ambulation and orthopedics was consulted and he was diagnosed with L achilles tendinitis for which they recommended R.I.C.E. PT worked well with him and cleared him for home discharge. He is now being discharged home. DISCHARGE MEDICATIONS: Please see below. ALLERGIES: Please see below. PHYSICAL EXAMINATION ON DISCHARGE: VITAL SIGNS: Please see below. General: Alert, Cooperative, No Acute Distress ENT: Atraumatic, Mucous membr. moist/pink, Pharynx Normal Chest: Clear to auscultation, Normal air movement Heart: Rate Normal, Regular Rhythm, Normal S1, Normal S2, no noted murmurs Abdomen: Normal bowel sounds, soft, NTND Extremities: L posterior able pain, has eyal bandage with some swelling of L ankle, otherwise without edema bilaterally Psych Exam: AO x 3 LABORATORY DATA: Please see below. IMAGING: Head CT: Age-related atrophy with periventricular leukomalacia and microvascular ischemic changes are appreciated. The ventricles and sulci are symmetric. Pappas-white differentiation is maintained. There is no evidence for acute intracranial hemorrhage, mass/mass effect, pathology or infarction. No extra-axial fluid collection. Calvarium is intact. Paranasal sinuses and mastoid air cells are clear. IMPRESSION: Atrophy and microvascular ischemic changes. No acute intracranial hemorrhage, infarction, or mass/mass effect. CXR: The mediastinum and cardiac silhouette are stable and within normal limits for portable technique. The lung cadena are clear without acute consolidation, effusion, or pneumothorax. Skeletal structures are intact. IMPRESSION: Chronic stable changes. No focal consolidation or effusion. CT A/P: Liver, spleen, pancreas, and bilateral adrenal glands are normal. [place] kidneys are atrophic and partially calcified. Transplant kidney in the left hemipelvis is stable in appearance again demonstrating mild hydronephrosis and large lower pole cyst measuring approximately 7.7 cm diameter. No acute perinephric stranding. The enteric system is unremarkable and without obstruction or acute inflammatory process. Normal terminal ileum and appendix identified in the right lower quadrant. Diverticulosis noted without acute diverticulitis. Pelvis demonstrates mildly distended bladder with small stable left-sided diverticulum similar to prior examination. Transplant kidney in the left hemipelvis as described above. Normal prostate gland and seminal vesicles. Small fat containing right inguinal hernia noted.. No ascites. No free air. No adenopathy. No focal inflammatory stranding. Atherosclerotic changes to the aorta and vasculature without aneurysm. Musculoskeletal structures are intact and without acute osseous abnormality. IMPRESSION: No acute abdominopelvic pathology appreciated. Chronic stable changes as described above. No ascites, focal inflammatory stranding, adenopathy, or free air. Bladder US: Bladder demonstrates mild somewhat irregular circumferential bladder wall thickening to approximately 4.5 mm along with large left bladder diverticulum. Prevoid bladder measures 7.0 x 5.5 x 7.6 cm (191 cc) Postvoid bladder measures 7.3 x 6.2 x 4.7 cm (139 cc) Postvoid residual: 73% IMPRESSION: 1. Chronic bladder wall thickening and large left bladder diverticulum causing incomplete emptying and significant postvoid residual volume. L foot XR: Four views of the left foot demonstrate extensive vascular calcification. Overall mineralization pattern is normal. Distal Achilles tendon swelling is seen as reported on the ankle series. Joint spaces are preserved. Overall mineralization pattern is normal.. No fracture or subluxation is seen. No opaque foreign body noted. IMPRESSION: Extensive vascular calcification. Swelling in the Achilles tendon as described in the ankle series. No acute bony abnormality. L ankle XR: There is marked soft tissue swelling in the Achilles tendon posteriorly on la teral film consistent with Achilles tendon injury or advanced tendinosis and inflammation. This should be correlated clinically. Vascular calcification is noted extensively crossing the ankles. There is Achilles calcaneal spurring. Ankle mortise is intact. There is no evidence of arthropathy or bony erosive change. IMPRESSION: There is marked swelling in and along the Achilles tendon consistent with Achilles tendon injury versus advanced tendinitis tendinosis. Correlate clinically. Extensive vascular calcification. No acute bony abnormality. PROGNOSIS: Good ACTIVITY: As tolerated DIET: 2g sodium DISCHARGE PLAN: Home DISPOSITION: Home DISCHARGE INSTRUCTIONS: Home with nephrology, psychiatry and PCP follow up ITEMS TO FOLLOWUP ON ON OUTPATIENT: CKD s/p transplant Dementia L achilles tendinitis DISCHARGE CONDITION: Stable TIME SPENT ON DISCHARGE: 46 minutes. Vital Signs/I&Os Vital Signs Date Time Temp Pulse Resp B/P (MAP) Pulse Ox O2 Delivery O2 Flow Rate FiO2 10/03/20 09:05 82 134/78 10/03/20 06:00 98.1 19 Room Air 10/02/20 22:00 98 I&O- Last 24 Hours up to 6 AM 10/03/20 06:00 Intake Total 1260 ml Output Total 0 ml Balance 1260 ml Laboratory Data Labs 24H Laboratory Tests 2 10/03/20 08:40: Nucleated Red Blood Cells % (auto) 0.0 3/30/21 08:43: Anion Gap 7L, Glomerular Filtration Rate 45.1L, Calcium Level 9.3, Phosphorus Level 3.4, Albumin 3.1L CBC/BMP Laboratory Tests 10/03/20 08:40 10/03/20 08:43 Microbiology Microbiology 09/24/20 Urine Culture - Final, Complete Morganella Morganii [facility] Abhijit Discharge Medications Scheduled Allopurinol (Allopurinol) 100 Mg Tablet, 100 MG PO DAILY, (Reported) Amlodipine Besylate (Amlodipine Besylate) 5 Mg Tablet, 5 MG PO QHS, (Reported) Aspirin (Aspirin EC) 81 Mg Tablet.dr, 81 MG PO DAILY, (Reported) Atorvastatin Calcium (Atorvastatin Calcium) 40 Mg Tablet, 40 MG PO QHS, (Reported) Carvedilol (Carvedilol) 12.5 Mg Tab, 12.5 MG PO BID, (Reported) Cholecalciferol (Vitamin D3) (Vitamin D3) 1,000 Unit Tablet, 2,000 UNITS PO DAILY, (Reported) Furosemide (Furosemide) 20 Mg Tablet, 20 MG PO DAILY, (Reported) Magnesium Oxide (Magnesium Oxide) 500 Mg Capsule, 1,000 MG PO BID, (Reported) Melatonin (Melatonin) 5 Mg Tablet, 5 MG PO QHS, (Reported) Mycophenolate Sodium (Myfortic) 180 Mg Tablet.dr, 180 MG PO BID, (Reported) Omeprazole (Omeprazole) 20 Mg Capsule.dr, 20 MG PO DAILY, (Reported) Prednisone (Prednisone) 5 Mg Tablet, 5 MG PO DAILY, (Reported) Quetiapine Fumarate (Quetiapine Fumarate) 25 Mg Tablet, 25 MG PO DAILY, (Repor hannah) Quetiapine Fumarate (Quetiapine Fumarate) 50 Mg Tablet, 50 MG PO QHS, (Reported) Sertraline Hcl (Zoloft) 100 Mg Tablet, 100 MG PO DAILY, (Reported) Tacrolimus (Tacrolimus) 0.5 Mg Capsule, 0.5 MG PO BID, (Reported) Temazepam (Temazepam) 15 Mg Capsule, 15 MG PO QHS, (Reported) Scheduled PRN Diphenhydramine HCl (Benadryl) 25 Mg Capsule, 25 MG PO Q6H PRN for ITCHING, (Reported) Nitroglycerin (Nitrostat) 0.4 Mg Subl, 0.4 MG SL NITRO PRN for CHEST PAIN, (Reported) Allergies Coded Allergies: codeine (Verified Adverse Reaction, Mild, N/V, 09/16/20) meperidine (Verified Adverse Reaction, Mild, N/V, 09/16/20) morphine (Verified Adverse Reaction, Mild, N/V, 09/16/20) HAS TAKEN MORPHINE WITH ZOFRAN AND TOLERATED WELL oxycodone (Verified Adverse Reaction, Mild, N/V, 09/16/20) uses zofran prior to admin vancomycin (Verified Adverse Reaction, Mild, confusion, 09/16/20) BERHANE PABLO MD Oct 03, 2020 13:36
[2020-10-03] MEDS ORDERED: ACET-683 PO (13:44)
[2020-10-03] MEDS ORDERED: DICL1GEL3 TOP (13:44)
[2020-10-03] MEDS ORDERED: SERT50TA29 PO (13:44)
[2020-10-03] MEDS ORDERED: CAPS25CR TOP (13:44)
[2020-10-03] MEDS ORDERED: FLOM0.4C39 PO (13:44)
[2020-10-03] MEDS ORDERED: FINA5TAB2 PO (13:44)
[2020-10-03] MEDS ORDERED: ATIV1TAB10 PO (13:44)
[2020-10-03] MEDS ORDERED: QUET100T2 PO (13:44)
[2020-10-03] MEDS ORDERED: DIPHCR TOP (13:44)
== END 2020-10-03 14:30 | disposition home health service (06) | DRG 683 ==
LOC: M ED 10:27 → M ED INP 13:49 → ENRESERV 14:12 → M MSPAV 15:19
PROVIDERS: ADMIT Internal Medicine Nephrology; ATTEND Internal Medicine
DX: N17.9 Acute kidney failure, unspecified (principal); N39.0 Urinary tract infection, site not specified; Z94.0 Kidney transplant status; F03.91 Unspecified dementia, unspecified severity, with behavioral disturbance; N32.3 Diverticulum of bladder; F32.9 Major depressive disorder, single episode, unspecified; I12.9 Hypertensive chronic kidney disease with stage 1 through stage 4 chronic kidney disease, or unspecified chronic kidney disease; N18.30 Chronic kidney disease, stage 3 unspecified; I25.10 Atherosclerotic heart disease of native coronary artery without angina pectoris; I25.2 Old myocardial infarction; N25.81 Secondary hyperparathyroidism of renal origin; F41.9 Anxiety disorder, unspecified; M76.62 Achilles tendinitis, left leg; Z79.82 Long term (current) use of aspirin; Z79.899 Other long term (current) drug therapy; Z88.5 Allergy status to narcotic agent; Z88.8 Allergy status to other drugs, medicaments and biological substances; D86.9 Sarcoidosis, unspecified; Z95.2 Presence of prosthetic heart valve; R21 Rash and other nonspecific skin eruption; M10.30 Gout due to renal impairment, unspecified site; M47.892 Other spondylosis, cervical region; D69.6 Thrombocytopenia, unspecified; R33.9 Retention of urine, unspecified

== ENCOUNTER → 2020-10-13 | Outpatient (REF) | payer MEDICARE, BC ==
[~2020-10-13] MED LIST changes: +ACET-683 PO; +ATIV1TAB10 PO; +BENA25CA4 PO; +CAPS25CR TOP; +DICL1GEL3 TOP; +DIPHCR TOP; +FINA5TAB2 PO; +FLOM0.4C39 PO; +FURO20TA2 PO; +QUET100T2 PO; +SERT50TA29 PO; +SPIR-10 PO; +TACR0.5C3 PO; +TEMA15CA2 PO; +ZOLO100T PO
== END ==
LOC: M LAB REF 16:50
PROVIDERS: ATTEND Nurse Practitioner Family
DX: Z94.0 Kidney transplant status (principal)

== ENCOUNTER → 2020-12-19 | Outpatient (REF) | payer MEDICARE, BC ==
[~2020-12-19] MED LIST changes: -CVS5CHW2 PO; +GABA-283 PO; -GABA-845 PO; +MELA5TAB47 PO
== END ==
LOC: M LAB REF 16:40
PROVIDERS: ATTEND Internal Medicine Nephrology
DX: Z94.0 Kidney transplant status (principal)

== ENCOUNTER → 2021-02-16 | Outpatient (REF) | payer MEDICARE, BC ==
[~2021-02-16] MED LIST changes: +OLAN1TAB16 PO; -OLAN5TAB PO; +QUET1TAB17 PO; -QUET25TA3 PO; -QUET50TA3 PO; +QUET50TA4 PO
== END ==
LOC: M LAB REF 12:52
PROVIDERS: ATTEND Internal Medicine Nephrology
DX: Z94.0 Kidney transplant status (principal)

== ENCOUNTER → 2021-06-04 | Outpatient (REF) | payer MEDICARE, BC ==
[~2021-06-04] MED LIST changes: +OMEP-173 PO; -OMEP-218 PO
== END ==
LOC: M LAB REF 13:05
PROVIDERS: ATTEND Internal Medicine Nephrology
DX: Z94.0 Kidney transplant status (principal); E83.42 Hypomagnesemia

== ENCOUNTER → 2021-09-11 | Outpatient (REF) | payer MEDICARE, BC ==
[~2021-09-11] MED LIST changes: -D31000TA2 PO; +VITA100093 PO
== END ==
LOC: M LAB REF 17:38
PROVIDERS: ATTEND Internal Medicine Nephrology
DX: Z94.0 Kidney transplant status (principal)

== ENCOUNTER 2021-10-17 12:28 | Inpatient (IN) | payer MEDICARE, BC ==
[~2021-10-17] VITALS: Ht 170.2 cm; Wt 83.4 kg
[2021-10-17] MEDS ORDERED: NS 1,000 ML IV ONE (15:05)
[2021-10-17 15:54] LABS: BASO % 0.2 % (0.0-1.0); EOS % 0.1 % (0.0-3.0); HEMATOCRIT 34.8 % (42.0-52.0); HEMOGLOBIN 11.2 g/dl (13.5-17.5); LYMPH # 0.6 10^3/uL (1.5-5.0); LYMPH % 5.3 % (24.0-44.0); MEAN CORPUSCULAR HGB CONC 32.2 g/dl (32.0-36.5); MONO # 0.9 10^3/uL (0.0-0.8); MONO % 7.8 % (2.0-8.0); NEUTROPHILS # 9.7 10^3/uL (1.5-8.5); NEUTROPHILS % 85.4 % (36.0-66.0); PLATELET COUNT, AUTOMATED 154 10^3/uL (150-450); WHITE BLOOD COUNT 11.3 10^3/uL (4.0-10.0)
[2021-10-17 16:29] LABS: ALBUMIN 2.8 GM/DL (3.2-5.2); BILIRUBIN,DIRECT 0.5 MG/DL (0.0-0.2); CALCIUM LEVEL 8.9 MG/DL (8.8-10.2); CREATININE FOR GFR 2.9 MG/DL (0.70-1.30); GLOMERULAR FILTRATION RATE 23.3 (>49); POTASSIUM SERUM 4.1 MEQ/L (3.5-5.1)
[2021-10-17 17:25] LABS: URIC ACID 5.8 MG/DL (3.5-7.2)
[2021-10-17 17:32] LABS: RSV AMPLIFICATION NEGATIVE (NEGATIVE)
[2021-10-17] MEDS ORDERED: SERO50TA PO (17:36)
[2021-10-17] MEDS ORDERED: CARV6.25 PO (18:17)
[2021-10-17] MEDS ORDERED: D3 S1CAP3 PO (18:17)
[2021-10-17] MEDS ORDERED: ATIV1TAB10 PO (18:19)
[2021-10-17] MEDS ORDERED: HOME MED LIST COMPLETE! XX SCH (18:25)
[2021-10-17] MEDS ORDERED: ZOLO100T PO (18:25)
[2021-10-17] MEDS: amLODIPine 5 MG TAB PO SCH (21:00)
[2021-10-17] MEDS: MYCOPHENOLIC 180 MG PO SCH (21:00)
[2021-10-17] MEDS: CARVedilol 6.25 MG TAB PO SCH (21:00)
[2021-10-17] MEDS: TACROLIMUS 0.5 MG CAP PO SCH (21:00)
[2021-10-17] MEDS: ATORVASTATIN 20 MG TAB PO SCH (21:00)
[2021-10-17] MEDS ORDERED: PIPERACILLIN/TAZOBACTAM SOD 3.375 GM in D5W MINI-BAG PLUS 50 ML IV ONE (22:20)
[2021-10-17] MEDS: NS 1,000 ML IV SCH (22:35)
[2021-10-17] MEDS ORDERED: ACETAMINOPHEN TAB 650MG DOSE (2X325MG) PO PRN (22:35)
[2021-10-17] MEDS ORDERED: MAALOX 30 ML SUSP *UDC PO PRN (22:35)
[2021-10-17] MEDS ORDERED: NITROGLYCERIN 0.4 MG SUBL TABLET SL PRN (22:35)
[2021-10-17] MEDS ORDERED: LORazepam 0.5 MG TAB PO PRN (22:35)
[2021-10-17] MEDS ORDERED: ONDANSETRON 4MG/2ML VIAL IV PRN (22:35)
[2021-10-17] MEDS ORDERED: MOM 30ML SUSPENSION UDC PO PRN (22:35)
[2021-10-17] MEDS ORDERED: VANCOMYCIN HCL 750 MG, VIAL MATE ADAPTER 1 EACH in NS 250 ML IV SCH (22:35)
[2021-10-17] MEDS ORDERED: RAMELTEON 8 MG TAB (ROZEREM) PO PRN (22:35)
[2021-10-17] MEDS ORDERED: methylPREDNISolone 125MG 2ML VIAL IV SCH (23:20)
[2021-10-17] MEDS ORDERED: MORPHINE 2 MG/ML 1ML VIAL IV PRN (23:45)
[2021-10-18 00:42] VITALS: BP 153/70
[2021-10-18] MEDS ORDERED: VANCOMYCIN HCL 750 MG, VIAL MATE ADAPTER 1 EACH in NS 250 ML IV ONE ×4 (01:00)
[2021-10-18 04:00] VITALS: BP 136/73
[2021-10-18] MEDS: PIPERACILLIN/TAZOBACTAM SOD 3.375 GM in D5W MINI-BAG PLUS 50 ML IV SCH ×4 (04:21→22:17)
[2021-10-18 05:26] LABS: HEMATOCRIT 33.4 % (42.0-52.0); HEMOGLOBIN 10.5 g/dl (13.5-17.5); MEAN CORPUSCULAR HEMOGLOBIN 27.2 pg (27.0-33.0); MEAN CORPUSCULAR HGB CONC 31.4 g/dl (32.0-36.5); MEAN CORPUSCULAR VOLUME 86.5 fl (80.0-96.0); PLATELET COUNT, AUTOMATED 146 10^3/uL (150-450); RED BLOOD COUNT 3.86 10^6/uL (4.30-6.10); WHITE BLOOD COUNT 8.9 10^3/uL (4.0-10.0)
[2021-10-18 05:36] LABS: INR 1.22; PROTHROMBIN TIME 15.8 SECONDS (12.7-14.5)
[2021-10-18 05:37] LABS: PARTIAL THROMBOPLASTIN TIME 41.1 SECONDS (25.9-37.0)
[2021-10-18 05:53] LABS: ALBUMIN 2.3 GM/DL (3.2-5.2); BILIRUBIN,TOTAL 0.8 MG/DL (0.2-1.0); CREATININE FOR GFR 2.77 MG/DL (0.70-1.30); GLOMERULAR FILTRATION RATE 24.6 (>49); MAGNESIUM LEVEL 2.8 MG/DL (1.8-2.4); TOTAL PROTEIN 5.6 GM/DL (6.4-8.2)
[2021-10-18 07:38] VITALS: BP 139/68
[2021-10-18] MEDS: NS 1,000 ML IV SCH ×2 (08:30→17:55)
[2021-10-18] MEDS: MYCOPHENOLIC 180 MG PO SCH ×2 (08:30→22:17)
[2021-10-18] MEDS: FINASTERIDE 5MG TAB PO SCH (08:34)
[2021-10-18] MEDS: SERTRALINE HCL 50 MG TAB PO SCH (08:34)
[2021-10-18] MEDS: ASPIRIN 81MG ENTERIC TABLET PO SCH (08:35)
[2021-10-18] MEDS: OMEPRAZOLE 20MG CAP PO SCH (08:35)
[2021-10-18] MEDS: TACROLIMUS 0.5 MG CAP PO SCH ×2 (08:35→22:18)
[2021-10-18] MEDS: TAMSULOSIN 0.4 MG CAP PO SCH (08:35)
[2021-10-18] MEDS: CARVedilol 6.25 MG TAB PO SCH ×2 (08:37→22:18)
[2021-10-18] MEDS ORDERED: predniSONE 5 MG TAB PO SCH (09:00)
[2021-10-18] MEDS ORDERED: allopurinoL 100 MG TAB PO SCH (09:00)
[2021-10-18] MEDS: predniSONE 20 MG TAB PO SCH (10:11)
[2021-10-18 13:10] VITALS: BP 140/69
[2021-10-18 16:04] VITALS: BP 134/75
[2021-10-18] MEDS ORDERED: LIDOCAINE 1% MDV 20ML VIAL As Ordered ONE (16:34)
[2021-10-18] MEDS: QUEtiapine FUMARATE 100 MG TAB PO SCH (17:41)
[2021-10-18] MEDS ORDERED: VANCOMYCIN HCL 750 MG, VIAL MATE ADAPTER 1 EACH in NS 250 ML IV SCH (18:00)
[2021-10-18 19:20] VITALS: BP 122/69
[2021-10-18] MEDS: QUEtiapine FUMARATE 50MG TAB PO SCH (22:18)
[2021-10-18] MEDS: ATORVASTATIN 20 MG TAB PO SCH (22:19)
[2021-10-18] MEDS: amLODIPine 5 MG TAB PO SCH (22:20)
[2021-10-19] VITALS: BP 138/76
[2021-10-19 03:55] VITALS: BP 134/60
[2021-10-19] MEDS: NS 1,000 ML IV SCH ×3 (04:11→15:29)
[2021-10-19] MEDS: PIPERACILLIN/TAZOBACTAM SOD 3.375 GM in D5W MINI-BAG PLUS 50 ML IV SCH ×4 (04:12→20:46)
[2021-10-19 05:47] LABS: HEMATOCRIT 32.5 % (42.0-52.0); HEMOGLOBIN 10.5 g/dl (13.5-17.5); MEAN CORPUSCULAR HEMOGLOBIN 28.1 pg (27.0-33.0); MEAN CORPUSCULAR HGB CONC 32.3 g/dl (32.0-36.5); MEAN CORPUSCULAR VOLUME 86.9 fl (80.0-96.0); PLATELET COUNT, AUTOMATED 152 10^3/uL (150-450); RED BLOOD COUNT 3.74 10^6/uL (4.30-6.10); WHITE BLOOD COUNT 9.2 10^3/uL (4.0-10.0)
[2021-10-19 06:07] LABS: ALBUMIN 2.1 GM/DL (3.2-5.2); BILIRUBIN,TOTAL 0.6 MG/DL (0.2-1.0); CALCIUM LEVEL 7.9 MG/DL (8.8-10.2); CREATININE FOR GFR 2.72 MG/DL (0.70-1.30); GLOMERULAR FILTRATION RATE 25.1 (>49); MAGNESIUM LEVEL 2.7 MG/DL (1.8-2.4); POTASSIUM SERUM 4.1 MEQ/L (3.5-5.1); TOTAL PROTEIN 5.4 GM/DL (6.4-8.2)
[2021-10-19 07:57] LABS: C REACTIVE PROTEIN QUANTITATIV 18.4 MG/DL (0.00-0.30)
[2021-10-19 08:00] VITALS: BP 139/59
[2021-10-19 08:25] LABS: ERYTHROCYTE SEDIMENTATION RATE 30 mm/hr (0-20)
[2021-10-19] MEDS: OMEPRAZOLE 20MG CAP PO SCH (08:43)
[2021-10-19] MEDS: ASPIRIN 81MG ENTERIC TABLET PO SCH (08:43)
[2021-10-19] MEDS: SERTRALINE HCL 50 MG TAB PO SCH (08:44)
[2021-10-19] MEDS: MYCOPHENOLIC 180 MG PO SCH ×2 (08:44→20:47)
[2021-10-19] MEDS: TACROLIMUS 0.5 MG CAP PO SCH ×2 (08:44→20:46)
[2021-10-19] MEDS: FINASTERIDE 5MG TAB PO SCH (08:44)
[2021-10-19] MEDS: predniSONE 20 MG TAB PO SCH (08:44)
[2021-10-19] MEDS: CARVedilol 6.25 MG TAB PO SCH ×2 (08:45→20:46)
[2021-10-19] MEDS: TAMSULOSIN 0.4 MG CAP PO SCH (08:45)
[2021-10-19 09:00] VITALS: BP 110/60
[2021-10-19 12:00] VITALS: BP 129/61
[2021-10-19] MEDS: HEPARIN SOD (PORCINE) 5000UNITS/ML 1ML VIAL/SYRINGE SQ SCH ×2 (15:29→20:45)
[2021-10-19] MEDS: QUEtiapine FUMARATE 100 MG TAB PO SCH (15:29)
[2021-10-19 19:45] VITALS: BP 138/77
[2021-10-19] MEDS: QUEtiapine FUMARATE 50MG TAB PO SCH (20:46)
[2021-10-19] MEDS: amLODIPine 5 MG TAB PO SCH (20:47)
[2021-10-19] MEDS: ATORVASTATIN 20 MG TAB PO SCH (20:47)
[2021-10-20] MEDS: NS 1,000 ML IV SCH ×3 (00:35→15:34)
[2021-10-20] MEDS: PIPERACILLIN/TAZOBACTAM SOD 3.375 GM in D5W MINI-BAG PLUS 50 ML IV SCH ×4 (03:29→22:55)
[2021-10-20 03:56] VITALS: BP 131/68
[2021-10-20] MEDS: HEPARIN SOD (PORCINE) 5000UNITS/ML 1ML VIAL/SYRINGE SQ SCH ×3 (05:30→20:34)
[2021-10-20 07:00] LABS: HEMATOCRIT 30.9 % (42.0-52.0); HEMOGLOBIN 9.8 g/dl (13.5-17.5); MEAN CORPUSCULAR HEMOGLOBIN 27.3 pg (27.0-33.0); MEAN CORPUSCULAR HGB CONC 31.7 g/dl (32.0-36.5); MEAN CORPUSCULAR VOLUME 86.1 fl (80.0-96.0); PLATELET COUNT, AUTOMATED 163 10^3/uL (150-450); RED BLOOD COUNT 3.59 10^6/uL (4.30-6.10); WHITE BLOOD COUNT 7.2 10^3/uL (4.0-10.0)
[2021-10-20 07:35] LABS: ALBUMIN 2.1 GM/DL (3.2-5.2); BILIRUBIN,TOTAL 0.5 MG/DL (0.2-1.0); CALCIUM LEVEL 7.4 MG/DL (8.8-10.2); CREATININE FOR GFR 2.34 MG/DL (0.70-1.30); GLOMERULAR FILTRATION RATE 29.8 (>49); MAGNESIUM LEVEL 2.6 MG/DL (1.8-2.4); TOTAL PROTEIN 4.8 GM/DL (6.4-8.2)
[2021-10-20 08:00] VITALS: BP 140/68
[2021-10-20] MEDS: predniSONE 20 MG TAB PO SCH (08:17)
[2021-10-20] MEDS: TAMSULOSIN 0.4 MG CAP PO SCH (08:17)
[2021-10-20] MEDS: SERTRALINE HCL 50 MG TAB PO SCH (08:17)
[2021-10-20] MEDS: TACROLIMUS 0.5 MG CAP PO SCH ×2 (08:18→20:34)
[2021-10-20] MEDS: FINASTERIDE 5MG TAB PO SCH (08:18)
[2021-10-20] MEDS: OMEPRAZOLE 20MG CAP PO SCH (08:18)
[2021-10-20] MEDS: CARVedilol 6.25 MG TAB PO SCH ×2 (08:18→20:35)
[2021-10-20] MEDS: MYCOPHENOLIC 180 MG PO SCH ×2 (08:18→20:36)
[2021-10-20] MEDS: ASPIRIN 81MG ENTERIC TABLET PO SCH (08:18)
[2021-10-20 12:02] VITALS: BP 136/80
[2021-10-20] MEDS: QUEtiapine FUMARATE 100 MG TAB PO SCH (15:34)
[2021-10-20 19:56] VITALS: BP 157/78
[2021-10-20] MEDS: ATORVASTATIN 20 MG TAB PO SCH (20:34)
[2021-10-20] MEDS: amLODIPine 5 MG TAB PO SCH (20:35)
[2021-10-20] MEDS: QUEtiapine FUMARATE 50MG TAB PO SCH (20:35)
[2021-10-21] MEDS: NS 1,000 ML IV SCH ×2 (00:13→08:28)
[2021-10-21 04:17] VITALS: BP 156/79
[2021-10-21] MEDS: PIPERACILLIN/TAZOBACTAM SOD 3.375 GM in D5W MINI-BAG PLUS 50 ML IV SCH ×4 (04:21→21:14)
[2021-10-21] MEDS: HEPARIN SOD (PORCINE) 5000UNITS/ML 1ML VIAL/SYRINGE SQ SCH ×3 (06:02→21:12)
[2021-10-21 06:09] LABS: HEMATOCRIT 30.9 % (42.0-52.0); HEMOGLOBIN 9.8 g/dl (13.5-17.5); MEAN CORPUSCULAR HEMOGLOBIN 27.2 pg (27.0-33.0); MEAN CORPUSCULAR HGB CONC 31.7 g/dl (32.0-36.5); MEAN CORPUSCULAR VOLUME 85.8 fl (80.0-96.0); PLATELET COUNT, AUTOMATED 173 10^3/uL (150-450); WHITE BLOOD COUNT 7.4 10^3/uL (4.0-10.0)
[2021-10-21 06:32] LABS: ALBUMIN 2.2 GM/DL (3.2-5.2); BILIRUBIN,TOTAL 0.6 MG/DL (0.2-1.0); CALCIUM LEVEL 7.5 MG/DL (8.8-10.2); GLOMERULAR FILTRATION RATE 35.8 (>49); MAGNESIUM LEVEL 2.2 MG/DL (1.8-2.4); POTASSIUM SERUM 3.8 MEQ/L (3.5-5.1); TOTAL PROTEIN 4.8 GM/DL (6.4-8.2)
[2021-10-21 08:11] VITALS: BP 163/78
[2021-10-21] MEDS: CARVedilol 6.25 MG TAB PO SCH ×2 (08:28→21:13)
[2021-10-21] MEDS: ASPIRIN 81MG ENTERIC TABLET PO SCH (08:28)
[2021-10-21] MEDS: predniSONE 5 MG TAB PO SCH (08:28)
[2021-10-21] MEDS: TAMSULOSIN 0.4 MG CAP PO SCH (08:28)
[2021-10-21] MEDS: SERTRALINE HCL 50 MG TAB PO SCH (08:28)
[2021-10-21] MEDS: OMEPRAZOLE 20MG CAP PO SCH (08:28)
[2021-10-21] MEDS: TACROLIMUS 0.5 MG CAP PO SCH ×2 (08:29→21:13)
[2021-10-21] MEDS: MYCOPHENOLIC 180 MG PO SCH ×2 (08:29→21:13)
[2021-10-21] MEDS: FINASTERIDE 5MG TAB PO SCH (08:29)
[2021-10-21] MEDS: allopurinoL 100 MG TAB PO SCH (09:42)
[2021-10-21 12:28] VITALS: BP 155/80
[2021-10-21] MEDS ORDERED: SODIUM BICARBONATE 50 MEQ in KCL 20MEQ IN 0.45NS 1000ML 1,000 ML IV SCH ×2 (14:00)
[2021-10-21] MEDS: QUEtiapine FUMARATE 100 MG TAB PO SCH (15:01)
[2021-10-21 20:00] VITALS: BP 188/89
[2021-10-21] MEDS: amLODIPine 5 MG TAB PO SCH (21:12)
[2021-10-21] MEDS: ATORVASTATIN 20 MG TAB PO SCH (21:13)
[2021-10-21] MEDS: QUEtiapine FUMARATE 50MG TAB PO SCH (21:13)
[2021-10-22] MEDS: PIPERACILLIN/TAZOBACTAM SOD 3.375 GM in D5W MINI-BAG PLUS 50 ML IV SCH ×4 (03:40→22:10)
[2021-10-22 04:00] VITALS: BP 195/95
[2021-10-22] MEDS: HEPARIN SOD (PORCINE) 5000UNITS/ML 1ML VIAL/SYRINGE SQ SCH ×3 (05:04→22:10)
[2021-10-22 06:00] LABS: HEMATOCRIT 33.7 % (42.0-52.0); HEMOGLOBIN 10.6 g/dl (13.5-17.5); MEAN CORPUSCULAR HEMOGLOBIN 27.2 pg (27.0-33.0); MEAN CORPUSCULAR HGB CONC 31.5 g/dl (32.0-36.5); MEAN CORPUSCULAR VOLUME 86.4 fl (80.0-96.0); PLATELET COUNT, AUTOMATED 208 10^3/uL (150-450); WHITE BLOOD COUNT 8.9 10^3/uL (4.0-10.0)
[2021-10-22 06:31] LABS: ALBUMIN 2.3 GM/DL (3.2-5.2); BILIRUBIN,TOTAL 0.6 MG/DL (0.2-1.0); CALCIUM LEVEL 8.5 MG/DL (8.8-10.2); CREATININE FOR GFR 1.81 MG/DL (0.70-1.30); GLOMERULAR FILTRATION RATE 40.1 (>49); MAGNESIUM LEVEL 1.8 MG/DL (1.8-2.4); POTASSIUM SERUM 3.8 MEQ/L (3.5-5.1); TOTAL PROTEIN 5.5 GM/DL (6.4-8.2)
[2021-10-22] MEDS: TAMSULOSIN 0.4 MG CAP PO SCH (07:49)
[2021-10-22] MEDS: SERTRALINE HCL 50 MG TAB PO SCH (07:49)
[2021-10-22] MEDS: ASPIRIN 81MG ENTERIC TABLET PO SCH (07:49)
[2021-10-22] MEDS: OMEPRAZOLE 20MG CAP PO SCH (07:49)
[2021-10-22] MEDS: FINASTERIDE 5MG TAB PO SCH (07:49)
[2021-10-22] MEDS: allopurinoL 100 MG TAB PO SCH (07:50)
[2021-10-22] MEDS: TACROLIMUS 0.5 MG CAP PO SCH ×2 (07:50→22:11)
[2021-10-22] MEDS: CARVedilol 6.25 MG TAB PO SCH ×2 (07:50→22:11)
[2021-10-22] MEDS: predniSONE 5 MG TAB PO SCH (07:50)
[2021-10-22] MEDS: MYCOPHENOLIC 180 MG PO SCH ×2 (07:51→21:00)
[2021-10-22 08:15] VITALS: BP 166/75
[2021-10-22] MEDS ORDERED: POTASSIUM CHLORIDE 10MEQ SR TABLET PO ONE (08:55)
[2021-10-22] MEDS: **hydrALAZINE** 50 MG TAB PO SCH ×3 (09:30→22:12)
[2021-10-22] MEDS: SODIUM BICARBONATE 325 MG TAB PO SCH ×2 (10:37→22:10)
[2021-10-22 15:41] VITALS: BP 164/64
[2021-10-22] MEDS: QUEtiapine FUMARATE 100 MG TAB PO SCH (15:52)
[2021-10-22 20:00] VITALS: BP 142/75
[2021-10-22] MEDS: QUEtiapine FUMARATE 50MG TAB PO SCH (22:11)
[2021-10-22] MEDS: ATORVASTATIN 20 MG TAB PO SCH (22:11)
[2021-10-22 23:27] VITALS: BP 137/78
[2021-10-23] MEDS: PIPERACILLIN/TAZOBACTAM SOD 3.375 GM in D5W MINI-BAG PLUS 50 ML IV SCH ×4 (05:01→21:31)
[2021-10-23] MEDS: HEPARIN SOD (PORCINE) 5000UNITS/ML 1ML VIAL/SYRINGE SQ SCH ×3 (05:02→21:32)
[2021-10-23 05:14] VITALS: BP 136/79
[2021-10-23 05:50] LABS: HEMATOCRIT 32.6 % (42.0-52.0); HEMOGLOBIN 10.5 g/dl (13.5-17.5); MEAN CORPUSCULAR HEMOGLOBIN 27.9 pg (27.0-33.0); MEAN CORPUSCULAR HGB CONC 32.2 g/dl (32.0-36.5); MEAN CORPUSCULAR VOLUME 86.5 fl (80.0-96.0); PLATELET COUNT, AUTOMATED 173 10^3/uL (150-450); RED BLOOD COUNT 3.77 10^6/uL (4.30-6.10); WHITE BLOOD COUNT 7.5 10^3/uL (4.0-10.0)
[2021-10-23 06:24] LABS: ALBUMIN 2.1 GM/DL (3.2-5.2); BILIRUBIN,TOTAL 0.6 MG/DL (0.2-1.0); CALCIUM LEVEL 8.9 MG/DL (8.8-10.2); CREATININE FOR GFR 1.77 MG/DL (0.70-1.30); GLOMERULAR FILTRATION RATE 41.2 (>49); MAGNESIUM LEVEL 1.6 MG/DL (1.8-2.4); POTASSIUM SERUM 3.9 MEQ/L (3.5-5.1); TOTAL PROTEIN 5.3 GM/DL (6.4-8.2)
[2021-10-23] MEDS: SODIUM BICARBONATE 325 MG TAB PO SCH ×2 (09:28→21:33)
[2021-10-23] MEDS: MYCOPHENOLIC 180 MG PO SCH ×2 (09:28→21:35)
[2021-10-23] MEDS: **hydrALAZINE** 50 MG TAB PO SCH ×3 (09:29→21:35)
[2021-10-23] MEDS: ASPIRIN 81MG ENTERIC TABLET PO SCH (09:29)
[2021-10-23] MEDS: SERTRALINE HCL 50 MG TAB PO SCH (09:30)
[2021-10-23] MEDS: TAMSULOSIN 0.4 MG CAP PO SCH (09:30)
[2021-10-23] MEDS: OMEPRAZOLE 20MG CAP PO SCH (09:30)
[2021-10-23] MEDS: allopurinoL 100 MG TAB PO SCH (09:31)
[2021-10-23] MEDS: predniSONE 5 MG TAB PO SCH (09:31)
[2021-10-23] MEDS: TACROLIMUS 0.5 MG CAP PO SCH ×2 (09:32→21:35)
[2021-10-23] MEDS: CARVedilol 6.25 MG TAB PO SCH ×2 (09:32→21:35)
[2021-10-23] MEDS: FINASTERIDE 5MG TAB PO SCH (09:32)
[2021-10-23] MEDS ORDERED: FUROSEMIDE 20MG/2ML VIAL (J1940) IV ONE (11:25)
[2021-10-23] MEDS ORDERED: CALCIUM CARBONATE 500 MG CHEW U/D PO PRN (11:30)
[2021-10-23] MEDS ORDERED: MAG SULF 1GM/100ML (MAG RUN) 1 GM in IV 1 EA IV ONE (12:00)
[2021-10-23 13:22] VITALS: BP 127/72
[2021-10-23] MEDS: QUEtiapine FUMARATE 100 MG TAB PO SCH (16:45)
[2021-10-23] MEDS: LACTOBACILLUS ACIDOPHILUS CAP (BACID) PO SCH (16:50)
[2021-10-23] MEDS: NS 1,000 ML IV SCH (17:12)
[2021-10-23] MEDS: QUEtiapine FUMARATE 50MG TAB PO SCH (21:32)
[2021-10-23] MEDS: ATORVASTATIN 20 MG TAB PO SCH (21:33)
[2021-10-23 22:00] VITALS: BP 122/88
[2021-10-24] MEDS: PIPERACILLIN/TAZOBACTAM SOD 3.375 GM in D5W MINI-BAG PLUS 50 ML IV SCH ×2 (04:43→09:52)
[2021-10-24] MEDS: HEPARIN SOD (PORCINE) 5000UNITS/ML 1ML VIAL/SYRINGE SQ SCH ×2 (05:09→14:24)
[2021-10-24 06:00] VITALS: BP 129/82
[2021-10-24 06:08] LABS: HEMATOCRIT 30.5 % (42.0-52.0); MEAN CORPUSCULAR HEMOGLOBIN 27.9 pg (27.0-33.0); MEAN CORPUSCULAR HGB CONC 32.8 g/dl (32.0-36.5); PLATELET COUNT, AUTOMATED 170 10^3/uL (150-450); RED BLOOD COUNT 3.59 10^6/uL (4.30-6.10); WHITE BLOOD COUNT 6.6 10^3/uL (4.0-10.0)
[2021-10-24 06:28] LABS: ALBUMIN 2.2 GM/DL (3.2-5.2); BILIRUBIN,TOTAL 0.5 MG/DL (0.2-1.0); CALCIUM LEVEL 8.9 MG/DL (8.8-10.2); CREATININE FOR GFR 1.92 MG/DL (0.70-1.30); GLOMERULAR FILTRATION RATE 37.5 (>49); MAGNESIUM LEVEL 1.7 MG/DL (1.8-2.4); POTASSIUM SERUM 3.7 MEQ/L (3.5-5.1); TOTAL PROTEIN 5.1 GM/DL (6.4-8.2)
[2021-10-24 07:45] LABS: CLOSTRIDIUM DIFFICILE PCR NEGATIVE (NEGATIVE)
[2021-10-24] MEDS ORDERED: BACITRACIN OINTMENT 30GM TUBE TOP SCH (09:00)
[2021-10-24] MEDS: FINASTERIDE 5MG TAB PO SCH (09:47)
[2021-10-24] MEDS: TACROLIMUS 0.5 MG CAP PO SCH (09:47)
[2021-10-24] MEDS: SODIUM BICARBONATE 325 MG TAB PO SCH (09:47)
[2021-10-24] MEDS: MYCOPHENOLIC 180 MG PO SCH (09:49)
[2021-10-24] MEDS: **hydrALAZINE** 50 MG TAB PO SCH (09:49)
[2021-10-24] MEDS: TAMSULOSIN 0.4 MG CAP PO SCH (09:50)
[2021-10-24] MEDS: LACTOBACILLUS ACIDOPHILUS CAP (BACID) PO SCH (09:50)
[2021-10-24] MEDS: SERTRALINE HCL 50 MG TAB PO SCH (09:50)
[2021-10-24] MEDS: allopurinoL 100 MG TAB PO SCH (09:50)
[2021-10-24] MEDS: OMEPRAZOLE 20MG CAP PO SCH (09:50)
[2021-10-24] MEDS: predniSONE 5 MG TAB PO SCH (09:51)
[2021-10-24 09:52] VITALS: BP 129/79
[2021-10-24] MEDS: NS 1,000 ML IV SCH (09:52)
[2021-10-24] MEDS: CARVedilol 6.25 MG TAB PO SCH (09:52)
[2021-10-24] MEDS: ASPIRIN 81MG ENTERIC TABLET PO SCH (09:53)
[2021-10-24 14:00] VITALS: BP 130/80
[2021-10-24] MEDS ORDERED: AMOX875T2 PO (15:05)
[2021-10-24] MEDS ORDERED: SODI325T9 PO (15:05)
[2021-10-24] MEDS ORDERED: RISATAB3 PO (15:05)
== END 2021-10-24 15:50 | disposition home or self-care (01) | DRG 372 ==
LOC: M ED 12:28 → M ED INP 22:32 → ENRESERV 23:34 → M PCU 10-18 00:40 → M MS5PR 10-22 23:11
PROVIDERS: ADMIT Internal Medicine; ATTEND Internal Medicine
PROC: 0W9J30Z Drainage of Pelvic Cavity with Drainage Device, Percutaneous Approach (ICD-10-PCS; principal; 2021-10-18 16:00)
DX: K65.1 Peritoneal abscess (principal); D84.9 Immunodeficiency, unspecified; N17.9 Acute kidney failure, unspecified; N13.30 Unspecified hydronephrosis; E87.2 Acidosis; Z94.0 Kidney transplant status; N25.81 Secondary hyperparathyroidism of renal origin; I25.10 Atherosclerotic heart disease of native coronary artery without angina pectoris; E78.5 Hyperlipidemia, unspecified; N18.9 Chronic kidney disease, unspecified; K21.9 Gastro-esophageal reflux disease without esophagitis; M10.9 Gout, unspecified; I12.9 Hypertensive chronic kidney disease with stage 1 through stage 4 chronic kidney disease, or unspecified chronic kidney disease; R19.7 Diarrhea, unspecified; Z95.2 Presence of prosthetic heart valve; F41.9 Anxiety disorder, unspecified; F32.A Depression, unspecified; Z86.73 Personal history of transient ischemic attack (TIA), and cerebral infarction without residual deficits; F03.90 Unspecified dementia, unspecified severity, without behavioral disturbance, psychotic disturbance, mood disturbance, and anxiety; N40.0 Benign prostatic hyperplasia without lower urinary tract symptoms; Z79.899 Other long term (current) drug therapy; Z79.82 Long term (current) use of aspirin; Z88.5 Allergy status to narcotic agent; Z88.8 Allergy status to other drugs, medicaments and biological substances; Z79.52 Long term (current) use of systemic steroids; Z98.41 Cataract extraction status, right eye; Z98.42 Cataract extraction status, left eye; Z96.642 Presence of left artificial hip joint; Z96.612 Presence of left artificial shoulder joint

== ENCOUNTER → 2021-12-07 | Outpatient (REF) | payer MEDICARE, BC ==
[~2021-12-07] MED LIST changes: +AMOX875T2 PO; +CARV6.25 PO; +D3 S1CAP3 PO; +SERO50TA PO
== END ==
LOC: M LAB REF 17:02
PROVIDERS: ATTEND Internal Medicine Nephrology
DX: Z94.0 Kidney transplant status (principal)

== ENCOUNTER → 2022-03-29 | Outpatient (REF) | payer MEDICARE, BC | LOC: M LAB REF 17:10 | PROVIDERS: ATTEND Internal Medicine Nephrology | DX: Z94.0 Kidney transplant status (principal) ==

== ENCOUNTER 2022-06-17 12:54 | Inpatient (IN) | payer MEDICARE, BC ==
[~2022-06-17] VITALS: Ht 170.2 cm; Wt 77.7 kg
[~2022-06-17 12:54] MED LIST changes: +CLOP75TA99 PO; -PLAV1TAB2 PO
[2022-06-17] MEDS ORDERED: ACETAMINOPHEN 325 MG TAB PO ONE (13:00)
[2022-06-17] MEDS ORDERED: NS 1,000 ML IV SCH (14:05)
[2022-06-17] MEDS ORDERED: NS 500 ML IV ONE (14:05)
[2022-06-17] MEDS ORDERED: NS 1,820 ML in IV 1 EA IV ONE (14:50)
[2022-06-17 14:52] LABS: ALBUMIN 3.7 G/DL (3.2-5.2); BILIRUBIN,DIRECT 0.7 MG/DL (<0.4); BILIRUBIN,TOTAL 1.4 MG/DL (0.3-1.2); CALCIUM LEVEL 9.4 MG/DL (8.3-10.6); CREATININE FOR GFR 3.07 MG/DL (0.70-1.30); GLOMERULAR FILTRATION RATE 21.7 (>49); POTASSIUM SERUM 4.6 MMOL/L (3.5-5.1); TOTAL PROTEIN 6.7 G/DL (5.7-8.2)
[2022-06-17 14:54] LABS: THYROID STIMULATING HORMONE 6.637 uIU/ML (0.55-4.78); THYROXINE (T4) 5.6 UG/DL (4.5-10.9)
[2022-06-17] MEDS ORDERED: cefTRIAXone SOD 2 GM in D5W MINI-BAG PLUS 50 ML IV ONE (15:05)
[2022-06-17] MEDS ORDERED: AZITHROMYCIN INJ 500 MG, VIAL MATE ADAPTER 1 EACH in D5W 250 ML IV ONE (15:05)
[2022-06-17 15:20] LABS: BASO % 0.1 % (0.0-1.0); EOS % 0.4 % (0.0-3.0); HEMATOCRIT 43.1 % (42.0-52.0); HEMOGLOBIN 13.1 g/dl (13.5-17.5); LYMPH # 0.9 10^3/uL (1.5-5.0); LYMPH % 11.1 % (24.0-44.0); MEAN CORPUSCULAR HEMOGLOBIN 26.8 pg (27.0-33.0); MEAN CORPUSCULAR HGB CONC 30.4 g/dl (32.0-36.5); MEAN CORPUSCULAR VOLUME 88.1 fl (80.0-96.0); MONO # 0.5 10^3/uL (0.0-0.8); MONO % 5.9 % (2.0-8.0); NEUTROPHILS # 6.9 10^3/uL (1.5-8.5); NEUTROPHILS % 81.6 % (36.0-66.0); RED BLOOD COUNT 4.89 10^6/uL (4.30-6.10); WHITE BLOOD COUNT 8.5 10^3/uL (4.0-10.0)
[2022-06-17 15:40] LABS: PLATELET COUNT, AUTOMATED 80 10^3/uL (150-450)
[2022-06-17] MEDS ORDERED: ONDANSETRON 4MG 2ML VIAL IV ONE (16:15)
[2022-06-17] MEDS ORDERED: SODIUM CHLORIDE 0.9% 1000ML IV SCH (18:05)
[2022-06-17] MEDS ORDERED: ACETAMINOPHEN TAB 650MG DOSE (2X325MG) PO PRN (18:05)
[2022-06-17] MEDS ORDERED: HOME MED LIST COMPLETE! XX SCH (18:55)
[2022-06-17] MEDS: HYDROCORTISONE 100 MG/2 ML VIAL (J1720 PER 1) IV SCH (19:07)
[2022-06-17] MEDS: PIPERACILLIN/TAZOBACTAM SOD 4.5 GM in D5W MINI-BAG PLUS 50 ML IV SCH (19:59)
[2022-06-17 20:00] VITALS: BP 100/70
[2022-06-17] MEDS: ONDANSETRON 4MG 2ML VIAL IV PRN (20:00)
[2022-06-17] MEDS: IPRATROPIUM 0.5MG/ALBUTEROL 2.5MG INH SOL UD 3ML (DUONEB) NEB SCH (20:03)
[2022-06-17 20:06] LABS: ABG BASE EXCESS -4.1 (-2.0-2.0); ABG HCO3 19.4 MEQ/L (22.0-26.0); ABG O2 SATURATION 95.1 % (95.0-99.0); ABG PARTIAL PRESSURE CO2 30.7 mmHg (35.0-45.0); ABG PARTIAL PRESSURE O2 73.1 mmHg (75.0-100.0); ABG TOTAL CO2 20.3 MEQ/L (23.0-31.0); ABG pH (ARTERIAL) 7.418 UNITS (7.350-7.450)
[2022-06-17 20:12] VITALS: BP 96/52
[2022-06-17 21:00] VITALS: BP 92/51
[2022-06-17] MEDS: TACROLIMUS 0.5 MG CAP PO SCH (21:07)
[2022-06-17] MEDS: MYCOPHENOLATE 180 MG PO SCH (21:07)
[2022-06-17] MEDS: OSELTAMIVIR PHOSPHATE 30MG CAPSULE PO SCH (21:07)
[2022-06-17] MEDS: HEPARIN SOD (PORCINE) 5000UNITS/ML 1ML VIAL/SYRINGE SC SCH (21:07)
[2022-06-17 21:59] VITALS: BP 101/56
[2022-06-17 22:00] VITALS: BP 96/57
[2022-06-18] VITALS (13 sets, daily range): BP systolic 96–132; BP diastolic 53–71
[2022-06-18] MEDS: HYDROCORTISONE 100 MG/2 ML VIAL (J1720 PER 1) IV SCH ×5 (00:30→23:54)
[2022-06-18] MEDS: PIPERACILLIN/TAZOBACTAM SOD 4.5 GM in D5W MINI-BAG PLUS 50 ML IV SCH ×3 (03:58→20:11)
[2022-06-18] MEDS ORDERED: ALBUTEROL SULFATE 2.5 MG/0.5 ML INH NEB SOLN NEB PRN (04:10)
[2022-06-18] MEDS: ONDANSETRON 4MG 2ML VIAL IV PRN (04:41)
[2022-06-18] MEDS: HEPARIN SOD (PORCINE) 5000UNITS/ML 1ML VIAL/SYRINGE SC SCH (06:11)
[2022-06-18 08:16] LABS: BASO % 0.1 % (0.0-1.0); HEMATOCRIT 35.2 % (42.0-52.0); LYMPH # 0.2 10^3/uL (1.5-5.0); LYMPH % 2.7 % (24.0-44.0); MEAN CORPUSCULAR HGB CONC 31.3 g/dl (32.0-36.5); MEAN CORPUSCULAR VOLUME 86.5 fl (80.0-96.0); MONO # 0.3 10^3/uL (0.0-0.8); MONO % 3.8 % (2.0-8.0); NEUTROPHILS # 7.9 10^3/uL (1.5-8.5); NEUTROPHILS % 92.1 % (36.0-66.0); RED BLOOD COUNT 4.07 10^6/uL (4.30-6.10); WHITE BLOOD COUNT 8.6 10^3/uL (4.0-10.0)
[2022-06-18 08:18] LABS: PLATELET COUNT, AUTOMATED 63 10^3/uL (150-450)
[2022-06-18 08:40] LABS: ALBUMIN 2.6 G/DL (3.2-5.2); BILIRUBIN,TOTAL 0.5 MG/DL (0.3-1.2); CALCIUM LEVEL 7.5 MG/DL (8.3-10.6); CREATININE FOR GFR 3.46 MG/DL (0.70-1.30); GLOMERULAR FILTRATION RATE 18.9 (>49); PHOSPHORUS LEVEL 3.2 MG/DL (2.4-5.1); POTASSIUM SERUM 4.5 MMOL/L (3.5-5.1); TOTAL PROTEIN 5.3 G/DL (5.7-8.2)
[2022-06-18] MEDS: IPRATROPIUM 0.5MG/ALBUTEROL 2.5MG INH SOL UD 3ML (DUONEB) NEB SCH ×4 (08:53→19:13)
[2022-06-18] MEDS: MYCOPHENOLATE 180 MG PO SCH ×2 (09:39→20:13)
[2022-06-18] MEDS: TACROLIMUS 0.5 MG CAP PO SCH ×2 (09:39→20:13)
[2022-06-18] MEDS: NS 1,000 ML IV SCH ×2 (09:40→18:20)
[2022-06-18] MEDS: LOPERAMIDE 2 MG CAPLET PO PRN (11:43)
[2022-06-18] MEDS ORDERED: NITROGLYCERIN 0.4MG SUBL TABLET SL PRN (11:45)
[2022-06-18 13:01] LABS: INR 1.51; PARTIAL THROMBOPLASTIN TIME 41.1 SECONDS (24.8-34.2); PROTHROMBIN TIME 18.5 SECONDS (12.5-14.5)
[2022-06-18 13:28] LABS: HEPATITIS B SURFACE ANTIGEN NEGATIVE (NEGATIVE)
[2022-06-18 13:49] LABS: HEPATITIS C VIRUS ABY INDEX 0.2 INDEX (<0.8)
[2022-06-18] MEDS: ASPIRIN 81MG ENTERIC TABLET PO SCH (13:51)
[2022-06-18] MEDS: OMEPRAZOLE 20MG CAP PO SCH (13:51)
[2022-06-18] MEDS: guaiFENesin ER 600 MG TAB PO SCH ×2 (13:52→20:12)
[2022-06-18] MEDS: SERTRALINE HCL 50 MG TAB PO SCH (13:52)
[2022-06-18] MEDS: TAMSULOSIN 0.4 MG CAP PO SCH (13:52)
[2022-06-18] MEDS: QUEtiapine FUMARATE 100 MG TAB PO SCH (16:26)
[2022-06-18 17:04] LABS: HEPATITIS B CORE ANTIBODY IGM NEGATIVE (NEGATIVE)
[2022-06-18] MEDS: LORazepam 0.5 MG TAB PO PRN (20:11)
[2022-06-18] MEDS: QUEtiapine FUMARATE 50MG TAB PO SCH (20:12)
[2022-06-18] MEDS: OSELTAMIVIR PHOSPHATE 30MG CAPSULE PO SCH (20:12)
[2022-06-18] MEDS: ATORVASTATIN 20 MG TAB PO SCH (20:12)
[2022-06-19 00:04] VITALS: BP 117/67
[2022-06-19] MEDS: PIPERACILLIN/TAZOBACTAM SOD 4.5 GM in D5W MINI-BAG PLUS 50 ML IV SCH ×3 (04:26→20:28)
[2022-06-19 04:28] VITALS: BP 140/76
[2022-06-19] MEDS: NS 1,000 ML IV SCH ×3 (04:28→20:42)
[2022-06-19 04:37] LABS: HEMATOCRIT 34.2 % (42.0-52.0); HEMOGLOBIN 10.8 g/dl (13.5-17.5); MEAN CORPUSCULAR HEMOGLOBIN 26.9 pg (27.0-33.0); MEAN CORPUSCULAR HGB CONC 31.6 g/dl (32.0-36.5); MEAN CORPUSCULAR VOLUME 85.3 fl (80.0-96.0); RED BLOOD COUNT 4.01 10^6/uL (4.30-6.10); WHITE BLOOD COUNT 7.2 10^3/uL (4.0-10.0)
[2022-06-19 04:39] LABS: PLATELET COUNT, AUTOMATED 72 10^3/uL (150-450)
[2022-06-19 05:05] LABS: ALBUMIN 2.8 G/DL (3.2-5.2); BILIRUBIN,TOTAL 0.3 MG/DL (0.3-1.2); CALCIUM LEVEL 7.8 MG/DL (8.3-10.6); CREATININE FOR GFR 3.17 MG/DL (0.70-1.30); POTASSIUM SERUM 3.5 MMOL/L (3.5-5.1); TOTAL PROTEIN 5.7 G/DL (5.7-8.2)
[2022-06-19] MEDS: HYDROCORTISONE 100 MG/2 ML VIAL (J1720 PER 1) IV SCH (05:39)
[2022-06-19 08:00] VITALS: BP 146/85
[2022-06-19] MEDS: MYCOPHENOLATE 180 MG PO SCH ×2 (08:19→20:31)
[2022-06-19] MEDS: SERTRALINE HCL 50 MG TAB PO SCH (08:19)
[2022-06-19] MEDS: guaiFENesin ER 600 MG TAB PO SCH ×2 (08:20→20:28)
[2022-06-19] MEDS: OMEPRAZOLE 20MG CAP PO SCH (08:20)
[2022-06-19] MEDS: TAMSULOSIN 0.4 MG CAP PO SCH (08:20)
[2022-06-19] MEDS: ASPIRIN 81MG ENTERIC TABLET PO SCH (08:20)
[2022-06-19] MEDS: TACROLIMUS 0.5 MG CAP PO SCH ×2 (08:20→20:31)
[2022-06-19] MEDS: IPRATROPIUM 0.5MG/ALBUTEROL 2.5MG INH SOL UD 3ML (DUONEB) NEB SCH ×5 (08:52→20:29)
[2022-06-19] MEDS ORDERED: predniSONE 5 MG TAB PO SCH (09:00)
[2022-06-19] MEDS ORDERED: CARVedilol 6.25 MG TAB PO SCH (09:00)
[2022-06-19] MEDS ORDERED: IPRATROPIUM 0.5MG/ALBUTEROL 2.5MG INH SOL UD 3ML (DUONEB) NEB PRN (10:15)
[2022-06-19] MEDS: predniSONE 10 MG TAB PO SCH (11:19)
[2022-06-19] MEDS: LOPERAMIDE 2 MG CAPLET PO PRN (11:19)
[2022-06-19] MEDS: POTASSIUM CHLORIDE 10MEQ SR TABLET PO SCH ×2 (11:20→20:29)
[2022-06-19] MEDS: FINASTERIDE 5MG TAB PO SCH (11:21)
[2022-06-19 12:00] VITALS: BP 126/76
[2022-06-19 16:00] VITALS: BP 173/92
[2022-06-19] MEDS: QUEtiapine FUMARATE 100 MG TAB PO SCH (17:03)
[2022-06-19] MEDS: amLODIPine 5 MG TAB PO SCH (17:04)
[2022-06-19 20:26] VITALS: BP 171/81
[2022-06-19] MEDS: RAMELTEON 8 MG TAB (ROZEREM) PO SCH (20:28)
[2022-06-19] MEDS: OSELTAMIVIR PHOSPHATE 30MG CAPSULE PO SCH (20:29)
[2022-06-19] MEDS: ATORVASTATIN 20 MG TAB PO SCH (20:30)
[2022-06-19] MEDS: QUEtiapine FUMARATE 50MG TAB PO SCH (20:30)
[2022-06-19] MEDS: LORazepam 0.5 MG TAB PO PRN (20:32)
[2022-06-20 00:31] VITALS: BP 172/83
[2022-06-20 04:06] VITALS: BP 163/78
[2022-06-20] MEDS: PIPERACILLIN/TAZOBACTAM SOD 4.5 GM in D5W MINI-BAG PLUS 50 ML IV SCH (04:13)
[2022-06-20 06:20] LABS: ALBUMIN 2.4 G/DL (3.2-5.2); BILIRUBIN,TOTAL 0.2 MG/DL (0.3-1.2); CALCIUM LEVEL 7.8 MG/DL (8.3-10.6); CREATININE FOR GFR 2.61 MG/DL (0.70-1.30); GLOMERULAR FILTRATION RATE 26.2 (>49); POTASSIUM SERUM 3.4 MMOL/L (3.5-5.1); TOTAL PROTEIN 5.3 G/DL (5.7-8.2)
[2022-06-20] MEDS ORDERED: POTASSIUM CHLORIDE 10MEQ SR TABLET PO ONE (07:10)
[2022-06-20] MEDS: IPRATROPIUM 0.5MG/ALBUTEROL 2.5MG INH SOL UD 3ML (DUONEB) NEB SCH ×4 (07:29→20:08)
[2022-06-20 08:00] VITALS: BP 142/72
[2022-06-20 08:01] LABS: HEMATOCRIT 33.6 % (42.0-52.0); HEMOGLOBIN 10.4 g/dl (13.5-17.5); MEAN CORPUSCULAR HEMOGLOBIN 26.8 pg (27.0-33.0); MEAN CORPUSCULAR VOLUME 86.6 fl (80.0-96.0); RED BLOOD COUNT 3.88 10^6/uL (4.30-6.10); WHITE BLOOD COUNT 5.7 10^3/uL (4.0-10.0)
[2022-06-20 08:06] LABS: PLATELET COUNT, AUTOMATED 70 10^3/uL (150-450)
[2022-06-20] MEDS: FINASTERIDE 5MG TAB PO SCH (09:44)
[2022-06-20] MEDS: SERTRALINE HCL 50 MG TAB PO SCH (09:44)
[2022-06-20] MEDS: ASPIRIN 81MG ENTERIC TABLET PO SCH (09:44)
[2022-06-20] MEDS: predniSONE 10 MG TAB PO SCH (09:44)
[2022-06-20] MEDS: AUGMENTIN 500MG TAB PO SCH ×2 (09:45→20:27)
[2022-06-20] MEDS: guaiFENesin ER 600 MG TAB PO SCH ×2 (09:45→20:27)
[2022-06-20] MEDS: OMEPRAZOLE 20MG CAP PO SCH (09:45)
[2022-06-20] MEDS: TAMSULOSIN 0.4 MG CAP PO SCH (09:45)
[2022-06-20] MEDS: TACROLIMUS 0.5 MG CAP PO SCH ×2 (09:46→20:28)
[2022-06-20] MEDS: MYCOPHENOLATE 180 MG PO SCH ×2 (09:48→20:28)
[2022-06-20 12:00] VITALS: BP 175/81
[2022-06-20] MEDS: SODIUM BICARBONATE 75 MEQ in KCL 20MEQ IN 0.45NS 1000ML 1,000 ML IV SCH ×2 (12:12)
[2022-06-20 12:16] LABS: C REACTIVE PROTEIN QUANTITATIV 22.8 MG/DL (<1.0)
[2022-06-20 12:24] LABS: C REACTIVE PROTEIN QUANTITATIV 26.3 MG/DL (<1.0)
[2022-06-20 14:24] LABS: C REACTIVE PROTEIN QUANTITATIV 14.3 MG/DL (<1.0)
[2022-06-20 14:33] LABS: C REACTIVE PROTEIN QUANTITATIV 10.2 MG/DL (<1.0)
[2022-06-20] MEDS: QUEtiapine FUMARATE 100 MG TAB PO SCH (15:54)
[2022-06-20 16:00] VITALS: BP 125/73
[2022-06-20 20:00] VITALS: BP 176/88
[2022-06-20] MEDS: RAMELTEON 8 MG TAB (ROZEREM) PO SCH (20:27)
[2022-06-20] MEDS: ATORVASTATIN 20 MG TAB PO SCH (20:27)
[2022-06-20] MEDS: QUEtiapine FUMARATE 50MG TAB PO SCH (20:27)
[2022-06-20] MEDS: amLODIPine 5 MG TAB PO SCH (20:28)
[2022-06-20] MEDS: OSELTAMIVIR PHOSPHATE 30MG CAPSULE PO SCH (20:28)
[2022-06-21] VITALS (7 sets, daily range): BP systolic 151–187; BP diastolic 74–95
[2022-06-21] MEDS: SODIUM BICARBONATE 75 MEQ in KCL 20MEQ IN 0.45NS 1000ML 1,000 ML IV SCH ×2 (00:08)
[2022-06-21] MEDS ORDERED: amLODIPine 5 MG TAB PO ONE (01:00)
[2022-06-21] MEDS ORDERED: hydrALAZINE 20MG/ML 1ML VIAL IV STA (03:59)
[2022-06-21 04:51] LABS: HEMATOCRIT 34.5 % (42.0-52.0); HEMOGLOBIN 10.9 g/dl (13.5-17.5); MEAN CORPUSCULAR HEMOGLOBIN 27.3 pg (27.0-33.0); MEAN CORPUSCULAR HGB CONC 31.6 g/dl (32.0-36.5); MEAN CORPUSCULAR VOLUME 86.5 fl (80.0-96.0); RED BLOOD COUNT 3.99 10^6/uL (4.30-6.10); WHITE BLOOD COUNT 5.3 10^3/uL (4.0-10.0)
[2022-06-21 04:58] LABS: PLATELET COUNT, AUTOMATED 78 10^3/uL (150-450)
[2022-06-21 05:23] LABS: ALBUMIN 2.6 G/DL (3.2-5.2); BILIRUBIN,TOTAL 0.3 MG/DL (0.3-1.2); CREATININE FOR GFR 2.12 MG/DL (0.70-1.30); GLOMERULAR FILTRATION RATE 33.3 (>49); POTASSIUM SERUM 3.4 MMOL/L (3.5-5.1); TOTAL PROTEIN 5.6 G/DL (5.7-8.2)
[2022-06-21] MEDS: IPRATROPIUM 0.5MG/ALBUTEROL 2.5MG INH SOL UD 3ML (DUONEB) NEB SCH ×4 (06:15→19:51)
[2022-06-21] MEDS ORDERED: hydrALAZINE 20MG/ML 1ML VIAL IV ONE (07:00)
[2022-06-21 07:56] LABS: C REACTIVE PROTEIN QUANTITATIV 5.4 MG/DL (<1.0)
[2022-06-21] MEDS ORDERED: POTASSIUM CHLORIDE 10MEQ SR TABLET PO ONE (08:00)
[2022-06-21] MEDS: SERTRALINE HCL 50 MG TAB PO SCH (08:32)
[2022-06-21] MEDS: AUGMENTIN 500MG TAB PO SCH (08:32)
[2022-06-21] MEDS: ASPIRIN 81MG ENTERIC TABLET PO SCH (08:32)
[2022-06-21] MEDS: TACROLIMUS 0.5 MG CAP PO SCH ×2 (08:32→20:11)
[2022-06-21] MEDS: TAMSULOSIN 0.4 MG CAP PO SCH (08:33)
[2022-06-21] MEDS: predniSONE 10 MG TAB PO SCH (08:33)
[2022-06-21] MEDS: FINASTERIDE 5MG TAB PO SCH (08:33)
[2022-06-21] MEDS: OMEPRAZOLE 20MG CAP PO SCH (08:33)
[2022-06-21] MEDS: guaiFENesin ER 600 MG TAB PO SCH ×2 (08:33→20:12)
[2022-06-21] MEDS: LOPERAMIDE 2 MG CAPLET PO PRN (08:33)
[2022-06-21] MEDS: MYCOPHENOLATE 180 MG PO SCH ×2 (08:35→20:13)
[2022-06-21] MEDS: LACTOBACILLUS ACIDOPHILUS CAP (BACID) PO SCH ×3 (13:57→20:09)
[2022-06-21] MEDS: FAMOTIDINE 20 MG TAB PO SCH ×2 (13:57→20:12)
[2022-06-21] MEDS ORDERED: LIDOCAINE 2% 5ML JELLY UROJET TOP ONE (15:00)
[2022-06-21] MEDS: QUEtiapine FUMARATE 100 MG TAB PO SCH (17:33)
[2022-06-21] MEDS ORDERED: CARVedilol 3.125 MG TAB PO ONE (19:05)
[2022-06-21] MEDS: AUGMENTIN 875 MG TAB PO SCH (20:08)
[2022-06-21] MEDS: ATORVASTATIN 20 MG TAB PO SCH (20:09)
[2022-06-21] MEDS: RAMELTEON 8 MG TAB (ROZEREM) PO SCH (20:09)
[2022-06-21] MEDS: OSELTAMIVIR PHOSPHATE 30MG CAPSULE PO SCH (20:11)
[2022-06-21] MEDS: amLODIPine 5 MG TAB PO SCH (20:11)
[2022-06-21] MEDS: QUEtiapine FUMARATE 50MG TAB PO SCH (20:12)
[2022-06-22] VITALS: BP 177/92
[2022-06-22 04:00] VITALS: BP 165/80
[2022-06-22 04:54] LABS: HEMATOCRIT 35.2 % (42.0-52.0); HEMOGLOBIN 10.9 g/dl (13.5-17.5); MEAN CORPUSCULAR HEMOGLOBIN 26.8 pg (27.0-33.0); MEAN CORPUSCULAR VOLUME 86.5 fl (80.0-96.0); RED BLOOD COUNT 4.07 10^6/uL (4.30-6.10)
[2022-06-22 04:57] LABS: PLATELET COUNT, AUTOMATED 90 10^3/uL (150-450)
[2022-06-22 05:27] LABS: ALBUMIN 2.8 G/DL (3.2-5.2); BILIRUBIN,TOTAL 0.7 MG/DL (0.3-1.2); CALCIUM LEVEL 8.6 MG/DL (8.3-10.6); CREATININE FOR GFR 1.73 MG/DL (0.70-1.30); GLOMERULAR FILTRATION RATE 42.2 (>49); POTASSIUM SERUM 3.8 MMOL/L (3.5-5.1); TOTAL PROTEIN 5.9 G/DL (5.7-8.2)
[2022-06-22] MEDS: IPRATROPIUM 0.5MG/ALBUTEROL 2.5MG INH SOL UD 3ML (DUONEB) NEB SCH ×2 (08:04→11:28)
[2022-06-22] MEDS: LACTOBACILLUS ACIDOPHILUS CAP (BACID) PO SCH (08:15)
[2022-06-22] MEDS: SERTRALINE HCL 50 MG TAB PO SCH (08:15)
[2022-06-22] MEDS: ASPIRIN 81MG ENTERIC TABLET PO SCH (08:15)
[2022-06-22] MEDS: predniSONE 10 MG TAB PO SCH (08:15)
[2022-06-22 08:16] VITALS: BP 188/87
[2022-06-22] MEDS: guaiFENesin ER 600 MG TAB PO SCH (08:16)
[2022-06-22] MEDS: TAMSULOSIN 0.4 MG CAP PO SCH (08:16)
[2022-06-22] MEDS: FAMOTIDINE 20 MG TAB PO SCH (08:16)
[2022-06-22] MEDS: TACROLIMUS 0.5 MG CAP PO SCH (08:16)
[2022-06-22] MEDS: AUGMENTIN 875 MG TAB PO SCH (08:16)
[2022-06-22] MEDS: FINASTERIDE 5MG TAB PO SCH (08:16)
[2022-06-22] MEDS: MYCOPHENOLATE 180 MG PO SCH (08:17)
[2022-06-22] MEDS ORDERED: **hydrALAZINE** 10 MG TAB PO SCH (09:00)
[2022-06-22] MEDS ORDERED: SODIUM BICARBONATE 325 MG TAB PO SCH (09:00)
[2022-06-22 10:00] VITALS: BP 165/79
[2022-06-22] MEDS ORDERED: amLODIPine 5 MG TAB PO ONE (10:05)
[2022-06-22] MEDS ORDERED: RISATAB3 PO (10:10)
[2022-06-22] MEDS ORDERED: PRED5TA PO (10:10)
[2022-06-22] MEDS ORDERED: AMOX875T2 PO (10:10)
[2022-06-22] MEDS ORDERED: MUCI600T31 PO (10:10)
[2022-06-22] MEDS ORDERED: PRED10TA2 PO (10:10)
[2022-06-22] MEDS ORDERED: AMLO1TAB24 PO (10:10)
[2022-06-22 11:03] VITALS: BP 165/79
[2022-06-22 11:47] VITALS: BP 149/80
[2022-06-22] MEDS ORDERED: HYDR10TAB PO (11:48)
[2022-06-22] MEDS ORDERED: SODI325T9 PO (12:27)
== END 2022-06-22 12:27 | disposition home or self-care (01) | DRG 871 ==
LOC: M ED 12:54 → EDBD 12:54 → M ED INP 18:04 → ENRESERV 18:48 → M ICU 19:17
PROVIDERS: ADMIT Internal Medicine Pulmonary Disease; ATTEND Internal Medicine
DX: A41.89 Other specified sepsis (principal); J96.01 Acute respiratory failure with hypoxia; R65.21 Severe sepsis with septic shock; J15.9 Unspecified bacterial pneumonia; N18.6 End stage renal disease; N17.9 Acute kidney failure, unspecified; D84.9 Immunodeficiency, unspecified; Z94.0 Kidney transplant status; N39.0 Urinary tract infection, site not specified; E87.20 Acidosis, unspecified; J09.X2 Influenza due to identified novel influenza A virus with other respiratory manifestations; D69.6 Thrombocytopenia, unspecified; F03.90 Unspecified dementia, unspecified severity, without behavioral disturbance, psychotic disturbance, mood disturbance, and anxiety; K21.9 Gastro-esophageal reflux disease without esophagitis; I25.10 Atherosclerotic heart disease of native coronary artery without angina pectoris; M10.9 Gout, unspecified; E78.5 Hyperlipidemia, unspecified; Z95.2 Presence of prosthetic heart valve; F41.9 Anxiety disorder, unspecified; Z79.899 Other long term (current) drug therapy; Z79.82 Long term (current) use of aspirin; Z88.5 Allergy status to narcotic agent; Z88.8 Allergy status to other drugs, medicaments and biological substances; Z98.41 Cataract extraction status, right eye; Z98.42 Cataract extraction status, left eye; Z86.73 Personal history of transient ischemic attack (TIA), and cerebral infarction without residual deficits; Z96.642 Presence of left artificial hip joint

== ENCOUNTER → 2022-07-03 | Outpatient (REF) | payer MEDICARE, BC ==
[~2022-07-03] MED LIST changes: +HYDR10TAB PO; +MUCI600T31 PO; +PRED10TA2 PO
== END ==
LOC: M LAB REF 17:11
PROVIDERS: ATTEND Internal Medicine Nephrology
DX: Z94.0 Kidney transplant status (principal)

== ENCOUNTER → 2023-07-04 | Outpatient (REF) | payer MEDICARE, BC ==
[~2023-07-04] MED LIST changes: +DICL100G10 TOP; -DICL1GEL3 TOP; -GABA-283 PO; +GABA-284 PO; +LIDO15SO2 SS; -LIDO2SO SS
== END ==
LOC: M LAB REF 15:31
PROVIDERS: ATTEND Internal Medicine Nephrology
DX: Z94.0 Kidney transplant status (principal)

== ENCOUNTER → 2023-09-22 | Outpatient (REF) | payer MEDICARE, BC ==
[~2023-09-22] MED LIST changes: -ASPI-161 PO; +ASPI-615 PO; +HYDR-161 PO; -HYDR10TAB PO; -LIDO15SO2 SS; +LIDO15SO9 SS; -MELA1TAB9 PO; +MELA5TAB58 PO
== END ==
LOC: M LAB REF 13:20
PROVIDERS: ATTEND Internal Medicine Nephrology
DX: Z94.0 Kidney transplant status (principal)

== ENCOUNTER → 2024-01-01 | Outpatient (REF) | payer MEDICARE, BC | LOC: M LAB REF 17:37 | PROVIDERS: ATTEND Internal Medicine Nephrology | DX: Z94.0 Kidney transplant status (principal) ==

== ENCOUNTER → 2024-03-26 | Outpatient (REF) | payer MEDICARE, BC | LOC: M LAB REF 17:03 | PROVIDERS: ATTEND Internal Medicine Nephrology | DX: Z94.0 Kidney transplant status (principal) ==

== ENCOUNTER → 2024-07-15 | Outpatient (REF) | payer MEDICARE, BC | LOC: M LAB REF 17:33 | PROVIDERS: ATTEND Internal Medicine Nephrology | DX: Z94.0 Kidney transplant status (principal) ==

== ENCOUNTER → 2024-07-15 | Outpatient (CLI) | payer MEDICARE, BC | LOC: M PLAIMG 12:48 | PROVIDERS: ATTEND Internal Medicine Nephrology | DX: R06.02 Shortness of breath (principal) ==

== ENCOUNTER → 2024-07-24 | Outpatient (CLI) | payer MEDICARE, BC | LOC: M EKG 12:45 | PROVIDERS: ATTEND Registered Nurse | DX: I49.1 Atrial premature depolarization (principal); R42 Dizziness and giddiness ==

== ENCOUNTER → 2024-09-09 | Outpatient (REF) | payer MEDICARE, BC | LOC: M LAB REF 17:30 | PROVIDERS: ATTEND Internal Medicine Nephrology | DX: Z94.0 Kidney transplant status (principal) ==

== ENCOUNTER → 2024-10-21 | Outpatient (CLI) | payer MEDICARE, BC | LOC: M PLAIMG 12:46 | PROVIDERS: ATTEND Registered Nurse | DX: R06.02 Shortness of breath (principal); R94.31 Abnormal electrocardiogram [ECG] [EKG]; I11.9 Hypertensive heart disease without heart failure ==

== ENCOUNTER 2025-03-08 14:30 | Emergency (ER) | payer MEDICARE, BC ==
[~2025-03-08] VITALS: Ht 170.2 cm; Wt 65.9 kg
[2025-03-08 16:14] LABS: BASO # 0.0 10^3/uL (0.0-0.2); BASO % 0.2 % (0.0-1.0); EOS # 0.1 10^3/uL (0.0-0.5); EOS % 1.7 % (0.0-3.0); LYMPH # 0.4 10^3/uL (1.5-5.0); LYMPH % 6.5 % (24.0-44.0); MONO # 0.3 10^3/uL (0.0-0.8); MONO % 5.8 % (2.0-8.0); NEUTROPHILS # 4.6 10^3/uL (1.5-8.5); NEUTROPHILS % 84.9 % (36.0-66.0); PLATELET COUNT, AUTOMATED 141 10^3/uL (150-450)
[2025-03-08 16:34] LABS: ALT/SGPT 126.0 U/L (7.0-40); AST/SGOT 231.0 U/L (<34)
[2025-03-08] MEDS: NS 500 ML IV ONE (17:04)
[2025-03-08 19:09] VITALS: BP 150/71; TEMP 98; O2SAT 99
== END 2025-03-08 20:23 | disposition home or self-care (01) ==
LOC: M ED 14:30
DX: R19.7 Diarrhea, unspecified (principal); E86.0 Dehydration; R11.0 Nausea; N18.9 Chronic kidney disease, unspecified; R16.1 Splenomegaly, not elsewhere classified; K57.30 Diverticulosis of large intestine without perforation or abscess without bleeding; I70.0 Atherosclerosis of aorta; Z94.0 Kidney transplant status; Z88.8 Allergy status to other drugs, medicaments and biological substances; Z88.5 Allergy status to narcotic agent; Z96.612 Presence of left artificial shoulder joint; Z79.1 Long term (current) use of non-steroidal anti-inflammatories (NSAID); Z79.82 Long term (current) use of aspirin; Z79.02 Long term (current) use of antithrombotics/antiplatelets; Z79.899 Other long term (current) drug therapy

== ENCOUNTER → 2025-03-08 | Outpatient (REF) | payer MEDICARE, BC ==
[~2025-03-08] MED LIST changes: -FLOM0.4C39 PO; -PRED50TA PO; +PRED50TA57 PO; +TAMS-18 PO
== END ==
LOC: M LAB REF 14:29
PROVIDERS: ATTEND Emergency Medicine
DX: R19.7 Diarrhea, unspecified (principal)

== ENCOUNTER 2025-03-16 18:09 | Observation (INO) | payer MEDICARE, BC ==
[~2025-03-16] VITALS: Ht 170.2 cm; Wt 67.5 kg
[2025-03-16] MEDS: NS (Normal Saline) 0.9% 1,000 ML IV ONE (20:20)
[2025-03-16 21:00] LABS: BASO # 0.0 10^3/uL (0.0-0.2); BASO % 0.4 % (0.0-1.0); EOS # 0.2 10^3/uL (0.0-0.5); EOS % 2.7 % (0.0-3.0); LYMPH # 0.9 10^3/uL (1.5-5.0); LYMPH % 15.7 % (24.0-44.0); MONO # 0.4 10^3/uL (0.0-0.8); MONO % 8.0 % (2.0-8.0); NEUTROPHILS # 4.0 10^3/uL (1.5-8.5); NEUTROPHILS % 72.7 % (36.0-66.0); PLATELET COUNT, AUTOMATED 108 10^3/uL (150-450)
[2025-03-16 21:27] LABS: ALT/SGPT 97.0 U/L (7.0-40); AST/SGOT 168.0 U/L (<34); CALCIUM LEVEL 9.6 MG/DL (8.3-10.6); CARBON DIOXIDE LEVEL 27.0 MMOL/L (20-31); CHLORIDE LEVEL 103.0 MMOL/L (98-107); CREATININE FOR GFR 2.7 MG/DL (0.70-1.30); GLOMERULAR FILTRATION RATE 24.6 (>42); POTASSIUM SERUM 5.1 MMOL/L (3.5-5.1); SODIUM LEVEL 141.0 MMOL/L (136-145)
[2025-03-16] MEDS ORDERED: QUET100T2 PO (21:59)
[2025-03-16] MEDS ORDERED: MAGN500T6 PO (21:59)
[2025-03-16] MEDS ORDERED: MAGN500T8 PO (21:59)
[2025-03-16] MEDS ORDERED: ONDA-282 PO (22:02)
[2025-03-16] MEDS ORDERED: HOME MED LIST COMPLETE! XX SCH (22:05)
[2025-03-16] MEDS: ONDANSETRON 4MG 2ML VIAL IV ONE (22:43)
[2025-03-17] MEDS ORDERED: LORazepam 0.5 MG TAB PO PRN (02:05)
[2025-03-17] MEDS: NS (Normal Saline) 0.9% 1,000 ML IV SCH ×2 (03:32→20:47)
[2025-03-17 06:53] LABS: BASO # 0.0 10^3/uL (0.0-0.2); BASO % 0.4 % (0.0-1.0); EOS # 0.2 10^3/uL (0.0-0.5); EOS % 4.3 % (0.0-3.0); LYMPH # 0.9 10^3/uL (1.5-5.0); LYMPH % 19.2 % (24.0-44.0); MONO # 0.4 10^3/uL (0.0-0.8); MONO % 8.4 % (2.0-8.0); NEUTROPHILS # 3.3 10^3/uL (1.5-8.5); NEUTROPHILS % 66.5 % (36.0-66.0); PLATELET COUNT, AUTOMATED 118 10^3/uL (150-450)
[2025-03-17 07:28] LABS: CALCIUM LEVEL 8.6 MG/DL (8.3-10.6); CARBON DIOXIDE LEVEL 23.0 MMOL/L (20-31); CHLORIDE LEVEL 108.0 MMOL/L (98-107); CREATININE FOR GFR 2.64 MG/DL (0.70-1.30); GLOMERULAR FILTRATION RATE 25.3 (>42); MAGNESIUM LEVEL 2.6 MG/DL (1.8-2.4); PHOSPHORUS LEVEL 3.6 MG/DL (2.4-5.1); POTASSIUM SERUM 4.2 MMOL/L (3.5-5.1); SODIUM LEVEL 143.0 MMOL/L (136-145)
[2025-03-17] MEDS: MAGNESIUM GLUCONATE 500 MG TAB PO SCH (09:00)
[2025-03-17] MEDS: TACROLIMUS 0.5MG CAP PO SCH (09:00)
[2025-03-17] MEDS: ASPIRIN 81 MG ENTERIC TABLET PO SCH (10:39)
[2025-03-17] MEDS: amLODIPine 5 MG TAB PO SCH (10:40)
[2025-03-17] MEDS: TAMSULOSIN 0.4 MG CAP PO SCH (10:40)
[2025-03-17] MEDS: SERTRALINE HCL 50 MG TAB PO SCH (10:41)
[2025-03-17] MEDS: OMEPRAZOLE 20MG CAP PO SCH (10:41)
[2025-03-17] MEDS: FINASTERIDE 5 MG TAB PO SCH (10:41)
[2025-03-17] MEDS: ONDANSETRON 4MG ORAL DISINTEGRATING TAB PO PRN (11:11)
[2025-03-17 14:10] LABS: IRON (FE) 35.0 UG/DL (65-175); PERCENT SATURATION 16.6 % (19.7-50.0)
[2025-03-17 18:00] VITALS: BP 155/75; TEMP 98; O2SAT 99
[2025-03-17] MEDS: SODIUM CHLORIDE 0.9% 1000 ML IV ONE (19:50)
[2025-03-17 20:30] VITALS: BP 136/65; TEMP 98.2; O2SAT 98
[2025-03-17] MEDS: QUEtiapine FUMARATE 50MG TAB PO SCH (21:48)
[2025-03-17] MEDS: ATORVASTATIN 20 MG TAB PO SCH (21:48)
[2025-03-17] MEDS: MYCOPHENOLIC 180 MG PO SCH (21:48)
[2025-03-17 22:00] VITALS: BP_SYST 102; BP_SYST 135; BP_DIAS 66; BP_DIAS 68
[2025-03-18 04:17] VITALS: BP 138/67; TEMP 97.9; O2SAT 98
[2025-03-18 06:16] VITALS: BP_SYST 107; BP_SYST 137; BP_SYST 138; BP_DIAS 60; BP_DIAS 67; BP_DIAS 68
[2025-03-18 07:18] LABS: BASO # 0.0 10^3/uL (0.0-0.2); BASO % 0.5 % (0.0-1.0); EOS # 0.1 10^3/uL (0.0-0.5); EOS % 3.4 % (0.0-3.0); LYMPH # 0.8 10^3/uL (1.5-5.0); LYMPH % 20.5 % (24.0-44.0); MONO # 0.3 10^3/uL (0.0-0.8); MONO % 7.3 % (2.0-8.0); NEUTROPHILS # 2.8 10^3/uL (1.5-8.5); NEUTROPHILS % 67.8 % (36.0-66.0); PLATELET COUNT, AUTOMATED 115 10^3/uL (150-450)
[2025-03-18 07:53] LABS: CALCIUM LEVEL 8.3 MG/DL (8.3-10.6); CARBON DIOXIDE LEVEL 22.0 MMOL/L (20-31); CHLORIDE LEVEL 109.0 MMOL/L (98-107); CREATININE FOR GFR 2.31 MG/DL (0.70-1.30); GLOMERULAR FILTRATION RATE 29.7 (>42); MAGNESIUM LEVEL 2.4 MG/DL (1.8-2.4); PHOSPHORUS LEVEL 4.1 MG/DL (2.4-5.1); POTASSIUM SERUM 4.1 MMOL/L (3.5-5.1); SODIUM LEVEL 144.0 MMOL/L (136-145)
[2025-03-18 08:23] VITALS: BP 128/66; TEMP 98.6; O2SAT 99
[2025-03-18 11:39] VITALS: BP 128/66; TEMP 98.6; O2SAT 99
[2025-03-18] MEDS: FERRIC CARBOXYMALTOSE INJ 750 MG, VIAL MATE ADAPTER 1 EACH in NS 100 ML IV ONE (12:16)
[2025-03-18 16:00] VITALS: BP_SYST 119; BP_SYST 121; BP_SYST 138; BP_DIAS 66; BP_DIAS 68; BP_DIAS 69
[2025-03-18 20:05] VITALS: BP 130/66; TEMP 98.6; O2SAT 99
[2025-03-19 00:22] VITALS: BP_SYST 108; BP_SYST 123; BP_SYST 134; BP_DIAS 66; BP_DIAS 68; BP_DIAS 69
[2025-03-19 04:26] VITALS: BP 153/70; TEMP 98.1; O2SAT 99
[2025-03-19 09:17] LABS: CALCIUM LEVEL 8.3 MG/DL (8.3-10.6); CARBON DIOXIDE LEVEL 23.0 MMOL/L (20-31); CHLORIDE LEVEL 110.0 MMOL/L (98-107); CREATININE FOR GFR 1.86 MG/DL (0.70-1.30); GLOMERULAR FILTRATION RATE 38.5 (>42); MAGNESIUM LEVEL 2.0 MG/DL (1.8-2.4); PHOSPHORUS LEVEL 3.0 MG/DL (2.4-5.1); POTASSIUM SERUM 3.9 MMOL/L (3.5-5.1); SODIUM LEVEL 142.0 MMOL/L (136-145)
[2025-03-19] MEDS: DARBEPOETIN 100 MCG/0.5 ML *NON-DIALYSIS* SYRINGE SC SCH (11:42)
[2025-03-19 12:00] VITALS: BP 122/67; TEMP 97.9; O2SAT 99
[2025-03-19 20:08] VITALS: BP 129/73; TEMP 98.8; O2SAT 99
[2025-03-19 21:01] VITALS: BP_SYST 143; BP_SYST 145; BP_SYST 148; BP_DIAS 80; BP_DIAS 81; BP_DIAS 82
[2025-03-20 04:16] VITALS: BP 134/70; TEMP 97.9; O2SAT 99
[2025-03-20 08:43] LABS: CALCIUM LEVEL 8.2 MG/DL (8.3-10.6); CARBON DIOXIDE LEVEL 24.0 MMOL/L (20-31); CHLORIDE LEVEL 107.0 MMOL/L (98-107); CREATININE FOR GFR 1.82 MG/DL (0.70-1.30); GLOMERULAR FILTRATION RATE 39.5 (>42); MAGNESIUM LEVEL 1.8 MG/DL (1.8-2.4); PHOSPHORUS LEVEL 2.7 MG/DL (2.4-5.1); POTASSIUM SERUM 3.6 MMOL/L (3.5-5.1); SODIUM LEVEL 142.0 MMOL/L (136-145)
[2025-03-20 12:00] VITALS: BP 128/73; TEMP 98.4; O2SAT 97
[2025-03-20] MEDS ORDERED: GLUCOSE 4 GM CHEW PO PRN (13:10)
[2025-03-20] MEDS ORDERED: GLUCAGON INJ 1 MG VIAL SC PRN (13:10)
[2025-03-20] MEDS ORDERED: DEXTROSE 50% 50 ML SYRINGE IV PRN (13:10)
[2025-03-21 04:27] VITALS: BP 130/74; TEMP 98.1; O2SAT 97
[2025-03-21 07:21] LABS: CALCIUM LEVEL 8.0 MG/DL (8.3-10.6); CARBON DIOXIDE LEVEL 26.0 MMOL/L (20-31); CHLORIDE LEVEL 105.0 MMOL/L (98-107); CREATININE FOR GFR 1.8 MG/DL (0.70-1.30); GLOMERULAR FILTRATION RATE 40.0 (>42); MAGNESIUM LEVEL 1.5 MG/DL (1.8-2.4); PHOSPHORUS LEVEL 2.1 MG/DL (2.4-5.1); POTASSIUM SERUM 3.8 MMOL/L (3.5-5.1); SODIUM LEVEL 136.0 MMOL/L (136-145)
[2025-03-21 09:08] VITALS: BP 130/74
[2025-03-21] MEDS: MAG SULF 1GM/100ML (MAG RUN) 1 GM in IV 1 EA IV SCH (09:11)
[2025-03-21 12:00] VITALS: BP 127/71; TEMP 99.9; O2SAT 97
[2025-03-21] MEDS: ACETAMINOPHEN 325 MG TAB PO PRN (12:00)
[2025-03-21 14:00] VITALS: BP 131/71; TEMP 99.4; O2SAT 97
== END 2025-03-21 15:21 | disposition home health service (06) ==
LOC: M ED 18:09 → M ED INP 18:10 → M MSPAV 03-17 17:55
PROVIDERS: ADMIT Student in an Organized Health Care Education/Training Program; ATTEND Student in an Organized Health Care Education/Training Program
DX: N17.9 Acute kidney failure, unspecified (principal); R11.2 Nausea with vomiting, unspecified; R42 Dizziness and giddiness; E86.1 Hypovolemia; N18.30 Chronic kidney disease, stage 3 unspecified; F03.90 Unspecified dementia, unspecified severity, without behavioral disturbance, psychotic disturbance, mood disturbance, and anxiety; I25.10 Atherosclerotic heart disease of native coronary artery without angina pectoris; Z98.61 Coronary angioplasty status; Z86.73 Personal history of transient ischemic attack (TIA), and cerebral infarction without residual deficits; M10.9 Gout, unspecified; Z94.0 Kidney transplant status; R54 Age-related physical debility; K52.9 Noninfective gastroenteritis and colitis, unspecified; K74.69 Other cirrhosis of liver; Z79.82 Long term (current) use of aspirin; Z79.899 Other long term (current) drug therapy
CPT/HCPCS: 36415; 74176; 80053; 80069; 83550; 83605; 83690; 83735; 85025; 87486; 87581; 87633; 87798; 96361; 96372; 96374; 96375; 96376; 97116; 97161; 97530; 99285; G0378; J0881; J1439; J2405; J3475; J7512

== ENCOUNTER 2025-03-24 12:52 | Inpatient (IN) | payer MEDICARE, BC ==
[~2025-03-24] VITALS: Ht 170.2 cm; Wt 68.4 kg
[~2025-03-24 12:52] MED LIST changes: +MAGN500T6 PO; +MAGN500T8 PO; +ONDA-282 PO
[2025-03-24 13:53] LABS: BASO # 0.0 10^3/uL (0.0-0.2); BASO % 0.4 % (0.0-1.0); EOS # 0.2 10^3/uL (0.0-0.5); EOS % 3.3 % (0.0-3.0); LYMPH # 0.7 10^3/uL (1.5-5.0); LYMPH % 13.7 % (24.0-44.0); MONO # 0.3 10^3/uL (0.0-0.8); MONO % 6.4 % (2.0-8.0); NEUTROPHILS # 3.9 10^3/uL (1.5-8.5); NEUTROPHILS % 75.4 % (36.0-66.0); PLATELET COUNT, AUTOMATED 148 10^3/uL (150-450)
[2025-03-24 14:07] LABS: INR 1.09
[2025-03-24 14:19] LABS: CALCIUM LEVEL 8.5 MG/DL (8.3-10.6); CARBON DIOXIDE LEVEL 26.0 MMOL/L (20-31); CHLORIDE LEVEL 103.0 MMOL/L (98-107); CREATININE FOR GFR 2.28 MG/DL (0.70-1.30); GLOMERULAR FILTRATION RATE 30.1 (>42); MAGNESIUM LEVEL 2.4 MG/DL (1.8-2.4); POTASSIUM SERUM 3.7 MMOL/L (3.5-5.1); SODIUM LEVEL 137.0 MMOL/L (136-145)
[2025-03-24] MEDS ORDERED: HOME MED LIST COMPLETE! XX SCH (15:25)
[2025-03-24] MEDS ORDERED: NITROGLYCERIN 0.4 MG SUBL TABLET SL PRN (16:35)
[2025-03-24] MEDS: ONDANSETRON 4MG 2ML VIAL IV PRN (16:46)
[2025-03-24] MEDS: NS (Normal Saline) 0.9% 1,000 ML IV SCH (16:46)
[2025-03-24] MEDS ORDERED: PILL CUTTER 1 EACH XX ONE (18:21)
[2025-03-24] MEDS: VITAMIN D 1,000 INTERNATIONAL UNITS TABLET PO SCH (18:26)
[2025-03-24] MEDS: TAMSULOSIN 0.4 MG CAP PO SCH (18:26)
[2025-03-24] MEDS: OMEPRAZOLE 20MG CAP PO SCH (18:26)
[2025-03-24] MEDS: SERTRALINE 100 MG TAB PO SCH (18:27)
[2025-03-24] MEDS: amLODIPine 5 MG TAB PO SCH (18:27)
[2025-03-24] MEDS: ASPIRIN 81 MG ENTERIC TABLET PO SCH (18:28)
[2025-03-24] MEDS: FINASTERIDE 5 MG TAB PO SCH (18:28)
[2025-03-24 19:38] LABS: ERYTHROCYTE SEDIMENTATION RATE 16 mm/hr (0-20)
[2025-03-24 19:44] LABS: C REACTIVE PROTEIN QUANTITATIV 7.23 MG/DL (<1.0)
[2025-03-24] MEDS: UNRESOLVED PATIENT OWN MED ORDER XX SCH (21:00)
[2025-03-24] MEDS: HEPARIN SOD 5000 UNITS/ML 1 ML VIAL/SYRINGE SC SCH (22:18)
[2025-03-24] MEDS: QUEtiapine FUMARATE 50MG TAB PO SCH (22:18)
[2025-03-24] MEDS: ATORVASTATIN 20 MG TAB PO SCH (22:19)
[2025-03-24] MEDS: TACROLIMUS 0.5MG CAP PO SCH (22:23)
[2025-03-24] MEDS: ACETAMINOPHEN 500 MG TAB PO SCH (23:07)
[2025-03-25 08:54] LABS: PLATELET COUNT, AUTOMATED 127 10^3/uL (150-450)
[2025-03-25] MEDS ORDERED: MAGNESIUM GLUCONATE 500 MG TAB PO SCH (09:00)
[2025-03-25 09:23] LABS: CALCIUM LEVEL 7.7 MG/DL (8.3-10.6); CARBON DIOXIDE LEVEL 26.0 MMOL/L (20-31); CHLORIDE LEVEL 108.0 MMOL/L (98-107); CREATININE FOR GFR 2.2 MG/DL (0.70-1.30); GLOMERULAR FILTRATION RATE 31.4 (>42); MAGNESIUM LEVEL 2.3 MG/DL (1.8-2.4); POTASSIUM SERUM 3.9 MMOL/L (3.5-5.1); SODIUM LEVEL 141.0 MMOL/L (136-145)
[2025-03-25 17:52] VITALS: BP 144/74; TEMP 97.5; O2SAT 98
[2025-03-25] MEDS ORDERED: cefTRIAXone SOD 1 GM in DEXTROSE 5% (D5W) ADV/MINI-BAG 50 ML IV SCH (20:15)
[2025-03-25 21:40] VITALS: BP 138/74; TEMP 97.5; O2SAT 99
[2025-03-25] MEDS: MYCOPHENOLATE 180 MG PO SCH (21:40)
[2025-03-25] MEDS: PIPERACILLIN/TAZOBACTAM SOD 2.25 GM in DEXTROSE 5% (D5W) ADV/MINI-BAG 50 ML IV SCH (21:41)
[2025-03-26 04:15] VITALS: BP 122/74; TEMP 97.3; O2SAT 98
[2025-03-26 06:40] LABS: PLATELET COUNT, AUTOMATED 112 10^3/uL (150-450)
[2025-03-26 07:01] LABS: CALCIUM LEVEL 7.8 MG/DL (8.3-10.6); CARBON DIOXIDE LEVEL 25.0 MMOL/L (20-31); CHLORIDE LEVEL 107.0 MMOL/L (98-107); CREATININE FOR GFR 2.12 MG/DL (0.70-1.30); GLOMERULAR FILTRATION RATE 32.9 (>42); MAGNESIUM LEVEL 2.2 MG/DL (1.8-2.4); POTASSIUM SERUM 3.6 MMOL/L (3.5-5.1); SODIUM LEVEL 140.0 MMOL/L (136-145)
[2025-03-26 12:00] VITALS: BP 115/56; TEMP 97.7; O2SAT 96
[2025-03-26 13:31] LABS: IRON (FE) 52.0 UG/DL (65-175); PERCENT SATURATION 32.1 % (19.7-50.0)
[2025-03-26 19:00] LABS: ALT/SGPT 108.0 U/L (7.0-40); AST/SGOT 189.0 U/L (<34)
[2025-03-26] MEDS: NS (Normal Saline) 0.9% 1,000 ML IV SCH (19:35)
[2025-03-26 20:14] VITALS: BP 124/74; TEMP 98; O2SAT 97
[2025-03-26] MEDS: LORazepam 0.5 MG TAB PO PRN (21:40)
[2025-03-27 03:46] VITALS: BP 120/66; TEMP 98.4; O2SAT 95
[2025-03-27 06:20] LABS: PLATELET COUNT, AUTOMATED 92 10^3/uL (150-450)
[2025-03-27] MEDS: GASTROGRAFIN SOLUTION 30ML PO SCH (06:30)
[2025-03-27 06:50] LABS: CALCIUM LEVEL 7.5 MG/DL (8.3-10.6); CARBON DIOXIDE LEVEL 24.0 MMOL/L (20-31); CHLORIDE LEVEL 108.0 MMOL/L (98-107); CREATININE FOR GFR 2.23 MG/DL (0.70-1.30); GLOMERULAR FILTRATION RATE 30.9 (>42); MAGNESIUM LEVEL 2.0 MG/DL (1.8-2.4); PHOSPHORUS LEVEL 1.8 MG/DL (2.4-5.1); POTASSIUM SERUM 3.7 MMOL/L (3.5-5.1); SODIUM LEVEL 141.0 MMOL/L (136-145)
[2025-03-27] MEDS ORDERED: ISOVUE-370 76% 100 ML VIAL As Ordered ONE (07:20)
[2025-03-27] MEDS ORDERED: PIPERACILLIN/TAZOBACTAM SOD 3.375 GM in DEXTROSE 5% (D5W) ADV/MINI-BAG 50 ML IV SCH (10:00)
[2025-03-27 12:23] VITALS: BP 116/65; TEMP 98.1; O2SAT 98
[2025-03-27] MEDS ORDERED: DIAPER RELIEF PASTE 60 GM TOP SCH (14:15)
[2025-03-27] MEDS: PIPERACILLIN/TAZOBACTAM SOD 3.375 GM in DEXTROSE 5% (D5W) ADV/MINI-BAG 50 ML IV SCH (15:52)
[2025-03-27 20:45] VITALS: BP 120/65; TEMP 98.4; O2SAT 95
[2025-03-28 04:01] VITALS: BP 119/65; TEMP 97.7; O2SAT 98
[2025-03-28 06:52] LABS: PLATELET COUNT, AUTOMATED 109 10^3/uL (150-450)
[2025-03-28 07:18] LABS: CALCIUM LEVEL 7.4 MG/DL (8.3-10.6); CARBON DIOXIDE LEVEL 20.0 MMOL/L (20-31); CHLORIDE LEVEL 110.0 MMOL/L (98-107); CREATININE FOR GFR 2.06 MG/DL (0.70-1.30); GLOMERULAR FILTRATION RATE 34.0 (>42); MAGNESIUM LEVEL 1.8 MG/DL (1.8-2.4); POTASSIUM SERUM 4.0 MMOL/L (3.5-5.1); SODIUM LEVEL 139.0 MMOL/L (136-145)
[2025-03-28] MEDS: DARBEPOETIN 100 MCG/0.5 ML *NON-DIALYSIS* SYRINGE SC SCH (09:25)
[2025-03-28] MEDS: PANTOPRAZOLE 40MG VIAL IV SCH (09:25)
[2025-03-28 12:07] VITALS: BP 121/70; TEMP 97.7; O2SAT 98
[2025-03-28] MEDS: cefTRIAXone SOD 1 GM in DEXTROSE 5% (D5W) ADV/MINI-BAG 50 ML IV SCH (17:44)
[2025-03-28 18:29] LABS: KETONE, URINE AUTO RFX NEGATIVE (NEGATIVE); LEUKOCYTE ESTERASE UR AUTO RFX NEGATIVE (NEGATIVE); NITRITE, URINE AUTO RFX NEGATIVE (NEGATIVE); RBC, URINE AUTO RFX 4 /HPF (0-3); SQUAM EPITHELIAL CELL UR AURFX 0 /HPF (0-6); WBC, URINE AUTO RFX 1 /HPF (0-3)
[2025-03-28] MEDS: metroNIDAZOLE 500 MG in IV 1 EA IV SCH (20:13)
[2025-03-28 20:55] VITALS: BP 123/70; TEMP 97.7; O2SAT 97
[2025-03-29 04:00] VITALS: BP 125/70; TEMP 97.7; O2SAT 98
[2025-03-29 12:17] VITALS: BP 125/69; TEMP 98.2; O2SAT 97
[2025-03-29] MEDS: NS (Normal Saline) 0.9% 1,000 ML IV SCH (13:14)
[2025-03-29 13:19] LABS: PLATELET COUNT, AUTOMATED 101 10^3/uL (150-450)
[2025-03-29 13:53] LABS: CALCIUM LEVEL 7.7 MG/DL (8.3-10.6); CARBON DIOXIDE LEVEL 23.0 MMOL/L (20-31); CHLORIDE LEVEL 108.0 MMOL/L (98-107); CREATININE FOR GFR 2.05 MG/DL (0.70-1.30); GLOMERULAR FILTRATION RATE 34.2 (>42); MAGNESIUM LEVEL 1.6 MG/DL (1.8-2.4); POTASSIUM SERUM 3.4 MMOL/L (3.5-5.1); SODIUM LEVEL 140.0 MMOL/L (136-145)
[2025-03-29] MEDS: MAG SULF 1GM/100ML (MAG RUN) 1 GM in IV 1 EA IV ONE (14:38)
[2025-03-29] MEDS: POTASSIUM CHLORIDE 10MEQ SR TABLET PO ONE (14:38)
[2025-03-29 20:22] VITALS: BP 131/70; TEMP 98.4; O2SAT 96
[2025-03-29] MEDS: LORazepam 0.5 MG TAB PO SCH (20:28)
[2025-03-29] MEDS: LOPERAMIDE 2 MG CAPLET PO SCH (20:28)
[2025-03-29] MEDS ORDERED: LOPERAMIDE 2 MG CAPLET PO SCH (21:00)
[2025-03-30 03:35] VITALS: BP 140/78; TEMP 98.4; O2SAT 98
[2025-03-30 06:57] LABS: PLATELET COUNT, AUTOMATED 102 10^3/uL (150-450)
[2025-03-30 07:31] LABS: CALCIUM LEVEL 7.3 MG/DL (8.3-10.6); CARBON DIOXIDE LEVEL 21.0 MMOL/L (20-31); CHLORIDE LEVEL 111.0 MMOL/L (98-107); CREATININE FOR GFR 1.84 MG/DL (0.70-1.30); GLOMERULAR FILTRATION RATE 39.0 (>42); MAGNESIUM LEVEL 1.5 MG/DL (1.8-2.4); POTASSIUM SERUM 3.6 MMOL/L (3.5-5.1); SODIUM LEVEL 141.0 MMOL/L (136-145)
[2025-03-30] MEDS: MAG SULF 1GM/100ML (MAG RUN) 1 GM in IV 1 EA IV SCH (09:40)
[2025-03-30 12:20] VITALS: BP 118/68; TEMP 98.4; O2SAT 96
[2025-03-30 20:34] VITALS: BP 126/69; TEMP 98.1; O2SAT 98
[2025-03-31 04:09] VITALS: BP 128/71; TEMP 97.7
[2025-03-31 06:15] LABS: PLATELET COUNT, AUTOMATED 103 10^3/uL (150-450)
[2025-03-31 06:48] LABS: CALCIUM LEVEL 7.5 MG/DL (8.3-10.6); CARBON DIOXIDE LEVEL 22.0 MMOL/L (20-31); CHLORIDE LEVEL 110.0 MMOL/L (98-107); CREATININE FOR GFR 1.71 MG/DL (0.70-1.30); GLOMERULAR FILTRATION RATE 42.5 (>42); MAGNESIUM LEVEL 1.8 MG/DL (1.8-2.4); POTASSIUM SERUM 3.6 MMOL/L (3.5-5.1); SODIUM LEVEL 140.0 MMOL/L (136-145)
[2025-03-31 12:00] VITALS: BP 130/71; TEMP 97.9; O2SAT 96
[2025-03-31] MEDS: LOPERAMIDE 2 MG CAPLET PO SCH (20:05)
[2025-03-31 20:28] VITALS: BP 142/70; TEMP 98.1; O2SAT 97
[2025-04-01 03:47] VITALS: BP 144/70; TEMP 97.5; O2SAT 97
[2025-04-01 08:00] VITALS: BP 130/72; TEMP 97.7; O2SAT 97
[2025-04-01 12:00] VITALS: BP 121/66; TEMP 98.2; O2SAT 97
[2025-04-01 19:44] VITALS: BP 114/76; TEMP 98.1; O2SAT 92
[2025-04-01 20:11] VITALS: BP 154/74; TEMP 97.7; O2SAT 96
[2025-04-02 03:58] VITALS: BP 142/72; TEMP 97.7; O2SAT 95
[2025-04-02 06:54] LABS: BASO # 0.0 10^3/uL (0.0-0.2); BASO % 0.7 % (0.0-1.0); EOS # 0.1 10^3/uL (0.0-0.5); EOS % 3.0 % (0.0-3.0); LYMPH # 0.7 10^3/uL (1.5-5.0); LYMPH % 24.2 % (24.0-44.0); MONO # 0.2 10^3/uL (0.0-0.8); MONO % 6.7 % (2.0-8.0); NEUTROPHILS # 1.9 10^3/uL (1.5-8.5); NEUTROPHILS % 64.7 % (36.0-66.0); PLATELET COUNT, AUTOMATED 101 10^3/uL (150-450)
[2025-04-02 07:18] LABS: CALCIUM LEVEL 7.7 MG/DL (8.3-10.6); CARBON DIOXIDE LEVEL 21.0 MMOL/L (20-31); CHLORIDE LEVEL 108.0 MMOL/L (98-107); CREATININE FOR GFR 1.59 MG/DL (0.70-1.30); GLOMERULAR FILTRATION RATE 46.4 (>42); POTASSIUM SERUM 3.4 MMOL/L (3.5-5.1); SODIUM LEVEL 139.0 MMOL/L (136-145)
[2025-04-02] MEDS: SERTRALINE HCL 50 MG TAB PO SCH (09:08)
[2025-04-02] MEDS: POTASSIUM CHLORIDE 10MEQ SR TABLET PO ONE (09:08)
[2025-04-02 12:00] VITALS: BP 144/74; TEMP 97.7; O2SAT 98
[2025-04-02 19:54] VITALS: BP 155/72; TEMP 97.9; O2SAT 97
[2025-04-03 04:41] VITALS: BP 141/79; TEMP 97.9; O2SAT 97
[2025-04-03 07:15] LABS: BASO # 0.0 10^3/uL (0.0-0.2); BASO % 0.7 % (0.0-1.0); EOS # 0.1 10^3/uL (0.0-0.5); EOS % 3.5 % (0.0-3.0); LYMPH # 0.7 10^3/uL (1.5-5.0); LYMPH % 24.8 % (24.0-44.0); MONO # 0.2 10^3/uL (0.0-0.8); MONO % 6.3 % (2.0-8.0); NEUTROPHILS # 1.8 10^3/uL (1.5-8.5); NEUTROPHILS % 64.0 % (36.0-66.0); PLATELET COUNT, AUTOMATED 106 10^3/uL (150-450)
[2025-04-03 07:41] LABS: CALCIUM LEVEL 7.8 MG/DL (8.3-10.6); CARBON DIOXIDE LEVEL 20.0 MMOL/L (20-31); CHLORIDE LEVEL 110.0 MMOL/L (98-107); CREATININE FOR GFR 1.6 MG/DL (0.70-1.30); GLOMERULAR FILTRATION RATE 46.1 (>42); POTASSIUM SERUM 3.7 MMOL/L (3.5-5.1); SODIUM LEVEL 138.0 MMOL/L (136-145)
[2025-04-03] MEDS: PANTOPRAZOLE 40MG TAB PO SCH (08:54)
[2025-04-03 12:00] VITALS: BP 138/76; TEMP 97.9; O2SAT 97
[2025-04-03] MEDS: POTASSIUM CHLORIDE 10MEQ SR TABLET PO ONE (12:55)
[2025-04-03] MEDS: ASPIRIN 81 MG ENTERIC TABLET PO SCH (20:09)
[2025-04-03] MEDS: TAMSULOSIN 0.4 MG CAP PO SCH (20:10)
[2025-04-03 20:57] VITALS: BP 142/76; TEMP 97.9; O2SAT 97
[2025-04-04 03:44] VITALS: BP 140/75; TEMP 98.1; O2SAT 100
[2025-04-04 06:14] LABS: BASO # 0.0 10^3/uL (0.0-0.2); BASO % 0.6 % (0.0-1.0); EOS # 0.1 10^3/uL (0.0-0.5); EOS % 3.8 % (0.0-3.0); LYMPH # 0.9 10^3/uL (1.5-5.0); LYMPH % 26.7 % (24.0-44.0); MONO # 0.2 10^3/uL (0.0-0.8); MONO % 6.9 % (2.0-8.0); NEUTROPHILS # 2.0 10^3/uL (1.5-8.5); NEUTROPHILS % 61.4 % (36.0-66.0); PLATELET COUNT, AUTOMATED 104 10^3/uL (150-450)
[2025-04-04 06:29] LABS: CALCIUM LEVEL 7.7 MG/DL (8.3-10.6); CARBON DIOXIDE LEVEL 20.0 MMOL/L (20-31); CHLORIDE LEVEL 108.0 MMOL/L (98-107); CREATININE FOR GFR 1.65 MG/DL (0.70-1.30); GLOMERULAR FILTRATION RATE 44.4 (>42); MAGNESIUM LEVEL 1.3 MG/DL (1.8-2.4); PHOSPHORUS LEVEL 2.2 MG/DL (2.4-5.1); POTASSIUM SERUM 4.1 MMOL/L (3.5-5.1); SODIUM LEVEL 138.0 MMOL/L (136-145)
[2025-04-04] MEDS: MAG SULF 1GM/100ML (MAG RUN) 1 GM in IV 1 EA IV SCH (09:47)
[2025-04-04] MEDS ORDERED: LOPERAMIDE 2 MG CAPLET PO PRN (11:45)
[2025-04-05 03:21] VITALS: BP 131/76; TEMP 97.9; O2SAT 98
[2025-04-05 07:19] LABS: BASO # 0.0 10^3/uL (0.0-0.2); BASO % 0.7 % (0.0-1.0); EOS # 0.1 10^3/uL (0.0-0.5); EOS % 4.0 % (0.0-3.0); LYMPH # 0.7 10^3/uL (1.5-5.0); LYMPH % 25.6 % (24.0-44.0); MONO # 0.2 10^3/uL (0.0-0.8); MONO % 7.0 % (2.0-8.0); NEUTROPHILS # 1.7 10^3/uL (1.5-8.5); NEUTROPHILS % 61.6 % (36.0-66.0); PLATELET COUNT, AUTOMATED 129 10^3/uL (150-450)
[2025-04-05 07:41] LABS: CALCIUM LEVEL 7.7 MG/DL (8.3-10.6); CARBON DIOXIDE LEVEL 22.0 MMOL/L (20-31); CHLORIDE LEVEL 107.0 MMOL/L (98-107); CREATININE FOR GFR 1.77 MG/DL (0.70-1.30); GLOMERULAR FILTRATION RATE 40.8 (>42); POTASSIUM SERUM 3.8 MMOL/L (3.5-5.1); SODIUM LEVEL 137.0 MMOL/L (136-145)
[2025-04-05 20:00] VITALS: BP 151/79; TEMP 97.9; O2SAT 96
[2025-04-05] MEDS: TAMSULOSIN 0.4 MG CAP PO SCH (21:04)
[2025-04-06 04:00] VITALS: BP 144/79; TEMP 97.7; O2SAT 97
[2025-04-06 06:17] LABS: BASO # 0.0 10^3/uL (0.0-0.2); BASO % 0.4 % (0.0-1.0); EOS # 0.1 10^3/uL (0.0-0.5); EOS % 4.2 % (0.0-3.0); LYMPH # 0.6 10^3/uL (1.5-5.0); LYMPH % 24.2 % (24.0-44.0); MONO # 0.2 10^3/uL (0.0-0.8); MONO % 6.2 % (2.0-8.0); NEUTROPHILS # 1.7 10^3/uL (1.5-8.5); NEUTROPHILS % 63.8 % (36.0-66.0); PLATELET COUNT, AUTOMATED 122 10^3/uL (150-450)
[2025-04-06 06:49] LABS: CALCIUM LEVEL 8.0 MG/DL (8.3-10.6); CARBON DIOXIDE LEVEL 24.0 MMOL/L (20-31); CHLORIDE LEVEL 106.0 MMOL/L (98-107); CREATININE FOR GFR 1.73 MG/DL (0.70-1.30); GLOMERULAR FILTRATION RATE 41.9 (>42); POTASSIUM SERUM 3.8 MMOL/L (3.5-5.1); SODIUM LEVEL 135.0 MMOL/L (136-145)
[2025-04-07 04:00] VITALS: BP 134/79; TEMP 97.7; O2SAT 97
[2025-04-07 07:13] LABS: BASO # 0.0 10^3/uL (0.0-0.2); BASO % 0.3 % (0.0-1.0); EOS # 0.1 10^3/uL (0.0-0.5); EOS % 3.3 % (0.0-3.0); LYMPH # 0.7 10^3/uL (1.5-5.0); LYMPH % 19.3 % (24.0-44.0); MONO # 0.3 10^3/uL (0.0-0.8); MONO % 7.4 % (2.0-8.0); NEUTROPHILS # 2.3 10^3/uL (1.5-8.5); NEUTROPHILS % 69.1 % (36.0-66.0); PLATELET COUNT, AUTOMATED 132 10^3/uL (150-450)
[2025-04-07 07:44] LABS: CALCIUM LEVEL 8.0 MG/DL (8.3-10.6); CARBON DIOXIDE LEVEL 25.0 MMOL/L (20-31); CHLORIDE LEVEL 105.0 MMOL/L (98-107); CREATININE FOR GFR 1.76 MG/DL (0.70-1.30); GLOMERULAR FILTRATION RATE 41.1 (>42); POTASSIUM SERUM 4.0 MMOL/L (3.5-5.1); SODIUM LEVEL 138.0 MMOL/L (136-145)
[2025-04-07 08:05] VITALS: BP 127/73
[2025-04-07] MEDS: ACETAMINOPHEN 325 MG TAB PO PRN (08:05)
== END 2025-04-07 14:40 | disposition home health service (06) | DRG 392 ==
LOC: M ED 14:16 → M ED INP 14:17 → M MSPAV 03-25 17:47 → OBSVTOIN 03-27 10:22
PROVIDERS: ADMIT Student in an Organized Health Care Education/Training Program; ATTEND General Practice
DX: A08.11 Acute gastroenteropathy due to Norwalk agent (principal); I12.0 Hypertensive chronic kidney disease with stage 5 chronic kidney disease or end stage renal disease; D84.9 Immunodeficiency, unspecified; N17.9 Acute kidney failure, unspecified; R78.81 Bacteremia; D61.818 Other pancytopenia; Z94.0 Kidney transplant status; N25.81 Secondary hyperparathyroidism of renal origin; E46 Unspecified protein-calorie malnutrition; J98.11 Atelectasis; F03.90 Unspecified dementia, unspecified severity, without behavioral disturbance, psychotic disturbance, mood disturbance, and anxiety; E78.5 Hyperlipidemia, unspecified; K21.9 Gastro-esophageal reflux disease without esophagitis; E86.0 Dehydration; E83.42 Hypomagnesemia; I25.10 Atherosclerotic heart disease of native coronary artery without angina pectoris; Z86.73 Personal history of transient ischemic attack (TIA), and cerebral infarction without residual deficits; M10.9 Gout, unspecified; Z95.2 Presence of prosthetic heart valve; Z88.5 Allergy status to narcotic agent; Z88.8 Allergy status to other drugs, medicaments and biological substances; Z79.899 Other long term (current) drug therapy; Z79.82 Long term (current) use of aspirin; M19.90 Unspecified osteoarthritis, unspecified site; Z98.41 Cataract extraction status, right eye; Z98.42 Cataract extraction status, left eye; Z96.642 Presence of left artificial hip joint; Z85.828 Personal history of other malignant neoplasm of skin; Z96.612 Presence of left artificial shoulder joint

== ENCOUNTER 2025-04-26 12:17 | Inpatient (IN) | payer MEDICARE, BC ==
[~2025-04-26] VITALS: Ht 170.2 cm; Wt 61.8 kg
[2025-04-26] MEDS: MORPHINE 2 MG/ML 1 ML VIAL IV ONE ×2 (13:58→14:53)
[2025-04-26] MEDS: NS (Normal Saline) 0.9% 1,000 ML IV ONE (13:58)
[2025-04-26] MEDS: ONDANSETRON 4MG/2ML VIAL IV ONE (13:58)
[2025-04-26 14:04] LABS: BASO # 0.0 10^3/uL (0.0-0.2); BASO % 0.3 % (0.0-1.0); EOS # 0.1 10^3/uL (0.0-0.5); EOS % 0.7 % (0.0-3.0); LYMPH # 0.5 10^3/uL (1.5-5.0); LYMPH % 6.7 % (24.0-44.0); MONO # 0.3 10^3/uL (0.0-0.8); MONO % 4.2 % (2.0-8.0); NEUTROPHILS # 6.5 10^3/uL (1.5-8.5); NEUTROPHILS % 87.6 % (36.0-66.0); PLATELET COUNT, AUTOMATED 100 10^3/uL (150-450)
[2025-04-26 14:33] LABS: CALCIUM LEVEL 8.8 MG/DL (8.3-10.6); CARBON DIOXIDE LEVEL 21.0 MMOL/L (20-31); CHLORIDE LEVEL 103.0 MMOL/L (98-107); CREATININE FOR GFR 2.3 MG/DL (0.70-1.30); GLOMERULAR FILTRATION RATE 29.8 (>42); POTASSIUM SERUM 3.9 MMOL/L (3.5-5.1); SODIUM LEVEL 140.0 MMOL/L (136-145)
[2025-04-26] MEDS: NS (Normal Saline) 0.9% 1,000 ML IV SCH (15:45)
[2025-04-26] MEDS ORDERED: ACET-839 PO (15:50)
[2025-04-26] MEDS ORDERED: HOME MED LIST COMPLETE! XX SCH (15:55)
[2025-04-26 16:12] LABS: KETONE, URINE AUTO RFX NEGATIVE (NEGATIVE); LEUKOCYTE ESTERASE UR AUTO RFX NEGATIVE (NEGATIVE); NITRITE, URINE AUTO RFX NEGATIVE (NEGATIVE); RBC, URINE AUTO RFX 1 /HPF (0-3); SQUAM EPITHELIAL CELL UR AURFX 0 /HPF (0-6); TRANSITIONAL EPITHELIAL AU RFX <1 /HPF; WBC, URINE AUTO RFX 2 /HPF (0-3)
[2025-04-26] MEDS: LR 1,000 ML IV SCH (16:20)
[2025-04-26] MEDS: LIDOCAINE 2% 5 ML JELLY UROJET TOP ONE (16:20)
[2025-04-26 19:00] VITALS: BP 85/58; TEMP 98.2; O2SAT 92
[2025-04-26] MEDS: LR 1,000 ML IV ONE (20:41)
[2025-04-26] MEDS: ACETAMINOPHEN *IV* 1,000 MG in IV 1 EA IV PRN (21:02)
[2025-04-26] MEDS: NS 500 ML IV ONE (21:03)
[2025-04-26 22:11] LABS: C REACTIVE PROTEIN QUANTITATIV 22.28 MG/DL (<1.0)
[2025-04-26 22:20] VITALS: BP 86/55
[2025-04-26 23:00] VITALS: BP 98/50
[2025-04-26] MEDS: TACROLIMUS 0.5MG CAP PO SCH (23:22)
[2025-04-26] MEDS: QUEtiapine FUMARATE 50MG TAB PO SCH (23:23)
[2025-04-26] MEDS: ATORVASTATIN 20 MG TAB PO SCH (23:23)
[2025-04-26] MEDS: HEPARIN SOD 5000 UNITS/ML 1 ML VIAL/SYRINGE SQ SCH (23:24)
[2025-04-26] MEDS: cefTRIAXone SOD 2 GM in DEXTROSE 5% (D5W) ADV/MINI-BAG 50 ML IV SCH (23:24)
[2025-04-27 00:35] VITALS: BP 98/52; TEMP 97.7; O2SAT 98
[2025-04-27 05:21] VITALS: BP 110/58; TEMP 97.7; O2SAT 96
[2025-04-27 06:26] LABS: PLATELET COUNT, AUTOMATED 100 10^3/uL (150-450)
[2025-04-27 06:55] LABS: CALCIUM LEVEL 8.0 MG/DL (8.3-10.6); CARBON DIOXIDE LEVEL 20.0 MMOL/L (20-31); CHLORIDE LEVEL 107.0 MMOL/L (98-107); CREATININE FOR GFR 2.33 MG/DL (0.70-1.30); GLOMERULAR FILTRATION RATE 29.3 (>42); POTASSIUM SERUM 3.6 MMOL/L (3.5-5.1); SODIUM LEVEL 142.0 MMOL/L (136-145)
[2025-04-27] MEDS: ONDANSETRON 4MG/2ML VIAL IV PRN (07:59)
[2025-04-27 08:26] VITALS: BP 100/56; TEMP 97.7; O2SAT 88
[2025-04-27] MEDS: FINASTERIDE 5 MG TAB PO SCH (09:00)
[2025-04-27] MEDS: ASPIRIN 81 MG ENTERIC TABLET PO SCH (09:00)
[2025-04-27] MEDS: TAMSULOSIN 0.4 MG CAP PO SCH (09:00)
[2025-04-27] MEDS: OMEPRAZOLE 20MG CAP PO SCH (09:00)
[2025-04-27] MEDS: DEXTROSE 50% 50 ML SYRINGE IV STA ×2 (09:16→11:22)
[2025-04-27] MEDS ORDERED: MORPHINE 4 MG/ML 1 ML VIAL IV PRN (11:20)
[2025-04-27 12:03] VITALS: BP 115/69; TEMP 97.9; O2SAT 98
[2025-04-27 15:58] VITALS: BP 153/79; TEMP 97.9; O2SAT 95
[2025-04-27] MEDS: MORPHINE 4 MG/ML 1 ML VIAL IV ONE (16:31)
[2025-04-27 19:58] VITALS: BP 109/69; TEMP 98.6; O2SAT 92
[2025-04-27] MEDS: ACETAMINOPHEN 325 MG TAB PO ONE (21:19)
[2025-04-27] MEDS: FIORICET TAB PO ONE (21:35)
[2025-04-28] VITALS: BP 109/56; TEMP 98.1; O2SAT 99
[2025-04-28 04:00] VITALS: BP 115/65; TEMP 97.7; O2SAT 97
[2025-04-28 06:43] LABS: PLATELET COUNT, AUTOMATED 92 10^3/uL (150-450)
[2025-04-28 06:45] LABS: CALCIUM LEVEL 7.3 MG/DL (8.3-10.6); CARBON DIOXIDE LEVEL 19.0 MMOL/L (20-31); CHLORIDE LEVEL 111.0 MMOL/L (98-107); CREATININE FOR GFR 2.18 MG/DL (0.70-1.30); GLOMERULAR FILTRATION RATE 31.8 (>42); POTASSIUM SERUM 3.5 MMOL/L (3.5-5.1); SODIUM LEVEL 144.0 MMOL/L (136-145)
[2025-04-28] MEDS ORDERED: MORPHINE 4 MG/ML 1 ML VIAL IV PRN (09:25)
[2025-04-28] MEDS: HYDROMORPHONE HCL 0.5 MG/0.5 ML SYRINGE IV ONE (10:52)
[2025-04-28 12:00] VITALS: BP 116/65; TEMP 97.9; O2SAT 98
[2025-04-28] MEDS: POTASSIUM CHLORIDE 10MEQ SR TABLET PO ONE (14:24)
[2025-04-28 16:00] VITALS: BP 114/76; TEMP 97.9; O2SAT 97
[2025-04-28] MEDS: HYDROMORPHONE HCL 0.5 MG/0.5 ML SYRINGE IV PRN (16:57)
[2025-04-28 20:00] VITALS: BP 126/76; TEMP 97.9; O2SAT 94
[2025-04-28] MEDS: FIORICET TAB PO PRN (21:42)
[2025-04-28] MEDS: DEXTROSE 50% 50 ML SYRINGE IV STA (22:37)
[2025-04-29] VITALS (7 sets, daily range): BP systolic 107–151; BP diastolic 64–82; TEMP 97.7–98.3; O2SAT 93–100
[2025-04-29 06:52] LABS: PLATELET COUNT, AUTOMATED 85 10^3/uL (150-450)
[2025-04-29 07:19] LABS: CALCIUM LEVEL 7.6 MG/DL (8.3-10.6); CARBON DIOXIDE LEVEL 18.0 MMOL/L (20-31); CHLORIDE LEVEL 111.0 MMOL/L (98-107); CREATININE FOR GFR 1.93 MG/DL (0.70-1.30); GLOMERULAR FILTRATION RATE 36.8 (>42); POTASSIUM SERUM 3.9 MMOL/L (3.5-5.1); SODIUM LEVEL 143.0 MMOL/L (136-145)
[2025-04-29] MEDS ORDERED: GLUCOSE 4 GM CHEW PO PRN (08:15)
[2025-04-29] MEDS ORDERED: GLUCAGON INJ 1 MG VIAL SC PRN (08:15)
[2025-04-29] MEDS: DEXTROSE 50% 50 ML SYRINGE IV STA (08:18)
[2025-04-29] MEDS: SODIUM BICARBONATE 325 MG TAB PO SCH (10:07)
[2025-04-29] MEDS: SERTRALINE HCL 50 MG TAB PO SCH (10:11)
[2025-04-29] MEDS ORDERED: D10W 1,000 ML IV SCH (12:35)
[2025-04-29] MEDS: D5W/LR 1,000 ML IV SCH (12:57)
[2025-04-29 13:31] LABS: C REACTIVE PROTEIN QUANTITATIV 26.31 MG/DL (<1.0)
[2025-04-29 15:24] LABS: BASO # 0.0 10^3/uL (0.0-0.2); BASO % 0.4 % (0.0-1.0); EOS # 0.0 10^3/uL (0.0-0.5); EOS % 1.1 % (0.0-3.0); LYMPH # 0.3 10^3/uL (1.5-5.0); LYMPH % 9.6 % (24.0-44.0); MONO # 0.2 10^3/uL (0.0-0.8); MONO % 6.0 % (2.0-8.0); NEUTROPHILS # 2.3 10^3/uL (1.5-8.5); NEUTROPHILS % 81.8 % (36.0-66.0)
[2025-04-29 15:32] LABS: ALT/SGPT 51.0 U/L (7.0-40); AST/SGOT 146.0 U/L (<34)
[2025-04-29] MEDS: MORPHINE 4 MG/ML 1 ML VIAL IV PRN (15:33)
[2025-04-29] MEDS: LORazepam 0.5 MG TAB PO PRN (15:33)
[2025-04-29] MEDS: FLUCONAZOLE 100 MG TAB PO ONE (15:33)
[2025-04-29] MEDS: PIPERACILLIN/TAZOBACTAM SOD 2.25 GM in DEXTROSE 5% (D5W) ADV/MINI-BAG 50 ML IV SCH (18:38)
[2025-04-29 20:26] LABS: APPEARANCE, URINE CLEAR (CLEAR); BACTERIA, URINE AUTO NEGATIVE (NEGATIVE); BILIRUBIN, URINE AUTO NEGATIVE (NEGATIVE); BLOOD, URINE BLOOD 2+ (NEGATIVE); GLUCOSE, URINE (UA) AUTO NEGATIVE (NEGATIVE); KETONE, URINE AUTO NEGATIVE (NEGATIVE); LEUKOCYTE ESTERASE, URINE AUTO TRACE (NEGATIVE); MUCUS, URINE SMALL (NEGATIVE); NITRITE, URINE AUTO NEGATIVE (NEGATIVE); PROTEIN, URINE AUTO 1+ mg/dL (NEGATIVE); RBC, URINE AUTO 6 /HPF (0-3); SPECIFIC GRAVITY URINE AUTO 1.017 (1.002-1.035); SQUAMOUS EPITHELIAL CELL UR AU 0 /HPF (0-6); UROBILINOGEN, URINE AUTO 0.2 mg/dL (0.0-2.0); WBC, URINE AUTO 6 /HPF (0-3)
[2025-04-29] MEDS: LIDOCAINE 1% MDV 20 ML VIAL SC ONE (22:57)
[2025-04-30 00:33] VITALS: BP 135/80; TEMP 97.5; O2SAT 97
[2025-04-30 04:08] VITALS: BP 133/81; TEMP 97.5; O2SAT 95
[2025-04-30 07:03] LABS: BASO # 0.0 10^3/uL (0.0-0.2); BASO % 0.4 % (0.0-1.0); EOS # 0.0 10^3/uL (0.0-0.5); EOS % 1.3 % (0.0-3.0); LYMPH # 0.2 10^3/uL (1.5-5.0); LYMPH % 8.4 % (24.0-44.0); MONO # 0.1 10^3/uL (0.0-0.8); MONO % 4.9 % (2.0-8.0); NEUTROPHILS # 1.9 10^3/uL (1.5-8.5); NEUTROPHILS % 84.1 % (36.0-66.0)
[2025-04-30 07:09] LABS: PLATELET COUNT, AUTOMATED 88 10^3/uL (150-450)
[2025-04-30] MEDS: DEXTROSE 50% 50 ML SYRINGE IV STA (07:14)
[2025-04-30 07:23] LABS: CALCIUM LEVEL 7.3 MG/DL (8.3-10.6); CARBON DIOXIDE LEVEL 22.0 MMOL/L (20-31); CHLORIDE LEVEL 114.0 MMOL/L (98-107); CREATININE FOR GFR 1.67 MG/DL (0.70-1.30); GLOMERULAR FILTRATION RATE 43.8 (>42); POTASSIUM SERUM 3.6 MMOL/L (3.5-5.1); SODIUM LEVEL 146.0 MMOL/L (136-145)
[2025-04-30 08:00] VITALS: BP 133/83; TEMP 97.9; O2SAT 94
[2025-04-30] MEDS: MAGIC MOUTHWASH 5 ML ORAL SYRINGE PO PRN (10:14)
[2025-04-30 12:00] VITALS: BP 132/80; TEMP 97.5; O2SAT 99
[2025-04-30] MEDS: SODIUM BICARBONATE 100 MEQ in D5W 1,000 ML IV SCH (14:15)
[2025-04-30 20:25] VITALS: BP 130/83; TEMP 98.1; O2SAT 99
[2025-05-01 01:08] VITALS: BP 129/81; TEMP 97.9; O2SAT 100
[2025-05-01 04:38] VITALS: BP 143/81; TEMP 98.4; O2SAT 100
[2025-05-01] MEDS ORDERED: HYALURONIDASE 15 UNIT/ML 1 ML SYRINGE SC ONE (05:30)
[2025-05-01] MEDS: HYALURONIDASE 15 UNIT/ML 1 ML SYRINGE INJ ONE (06:04)
[2025-05-01 08:26] LABS: BASO # 0.0 10^3/uL (0.0-0.2); BASO % 0.3 % (0.0-1.0); EOS # 0.1 10^3/uL (0.0-0.5); EOS % 2.1 % (0.0-3.0); LYMPH # 0.3 10^3/uL (1.5-5.0); LYMPH % 11.3 % (24.0-44.0); MONO # 0.1 10^3/uL (0.0-0.8); MONO % 3.8 % (2.0-8.0); NEUTROPHILS # 2.4 10^3/uL (1.5-8.5); NEUTROPHILS % 81.5 % (36.0-66.0)
[2025-05-01 08:30] LABS: PLATELET COUNT, AUTOMATED 85 10^3/uL (150-450)
[2025-05-01 08:50] LABS: CALCIUM LEVEL 7.4 MG/DL (8.3-10.6); CARBON DIOXIDE LEVEL 27.0 MMOL/L (20-31); CHLORIDE LEVEL 109.0 MMOL/L (98-107); CREATININE FOR GFR 1.51 MG/DL (0.70-1.30); GLOMERULAR FILTRATION RATE 49.4 (>42); POTASSIUM SERUM 3.6 MMOL/L (3.5-5.1); SODIUM LEVEL 146.0 MMOL/L (136-145)
[2025-05-01 12:00] VITALS: BP 141/85; TEMP 98.1; O2SAT 95
[2025-05-01] MEDS: SODIUM BICARBONATE 75 MEQ in D5W 1,000 ML IV SCH (13:42)
[2025-05-01 20:20] VITALS: BP 124/76; TEMP 97.5; O2SAT 98
[2025-05-02 04:26] VITALS: BP 126/76; TEMP 97.7; O2SAT 97
[2025-05-02 06:49] LABS: PLATELET COUNT, AUTOMATED 77 10^3/uL (150-450)
[2025-05-02 07:14] LABS: CALCIUM LEVEL 7.0 MG/DL (8.3-10.6); CARBON DIOXIDE LEVEL 27 MMOL/L (20-31); CHLORIDE LEVEL 106 MMOL/L (98-107); CREATININE FOR GFR 1.49 MG/DL (0.70-1.30); GLOMERULAR FILTRATION RATE 50.2 (>42); POTASSIUM SERUM 3.1 MMOL/L (3.5-5.1); SODIUM LEVEL 143 MMOL/L (136-145)
[2025-05-02 07:52] LABS: C REACTIVE PROTEIN QUANTITATIV 13.10 MG/DL (<1.0)
[2025-05-02 12:31] VITALS: BP 131/80; TEMP 97.9; O2SAT 95
[2025-05-02] MEDS ORDERED: LORazepam 1 MG TAB PO PRN (13:30)
[2025-05-02] MEDS: ONDANSETRON 4MG ORAL DISINTEGRATING TAB PO SCH (14:30)
[2025-05-02 15:17] LABS: ALT/SGPT 89 U/L (7.0-40); AST/SGOT 317 U/L (<34)
[2025-05-02] MEDS: POTASSIUM CHLORIDE 10% LIQ 20MEQ/15ML UDC PO ONE (17:40)
[2025-05-02] MEDS: MEROPENEM 1 GM in IV 1 EA IV SCH (17:41)
[2025-05-02] MEDS: SODIUM BICARBONATE 75 MEQ in D5W 1,000 ML IV SCH (19:50)
[2025-05-02 20:02] LABS: POTASSIUM SERUM 3.3 MMOL/L (3.5-5.1)
[2025-05-02 20:55] VITALS: BP 133/81; TEMP 97.9; O2SAT 95
[2025-05-02] MEDS: KCL 10MEQ/100ML SWI (KRUN) 10 MEQ in IV 1 EA IV SCH (21:43)
[2025-05-02 22:00] VITALS: O2SAT 98
[2025-05-03 04:54] VITALS: BP 130/79; TEMP 98.1; O2SAT 94
[2025-05-03 07:40] LABS: BASO # 0.0 10^3/uL (0.0-0.2); BASO % 0.4 % (0.0-1.0); EOS # 0.1 10^3/uL (0.0-0.5); EOS % 3.5 % (0.0-3.0); LYMPH # 0.4 10^3/uL (1.5-5.0); LYMPH % 18.5 % (24.0-44.0); MONO # 0.2 10^3/uL (0.0-0.8); MONO % 7.5 % (2.0-8.0); NEUTROPHILS # 1.6 10^3/uL (1.5-8.5); NEUTROPHILS % 68.8 % (36.0-66.0)
[2025-05-03 07:41] LABS: PLATELET COUNT, AUTOMATED 72 10^3/uL (150-450)
[2025-05-03 07:49] LABS: INR 1.2
[2025-05-03 08:26] LABS: ALT/SGPT 68.0 U/L (7.0-40); AST/SGOT 229.0 U/L (<34); CALCIUM LEVEL 7.2 MG/DL (8.3-10.6); CARBON DIOXIDE LEVEL 28.0 MMOL/L (20-31); CHLORIDE LEVEL 104.0 MMOL/L (98-107); CREATININE FOR GFR 1.35 MG/DL (0.70-1.30); GLOMERULAR FILTRATION RATE 56.5 (>42); POTASSIUM SERUM 3.2 MMOL/L (3.5-5.1); SODIUM LEVEL 141.0 MMOL/L (136-145)
[2025-05-03] MEDS: ONDANSETRON 4MG/2ML VIAL IV PRN (08:30)
[2025-05-03] MEDS: OMEPRAZOLE 20MG CAP PO SCH (09:00)
[2025-05-03] MEDS ORDERED: diazePAM 2 MG TAB PO PRN (09:10)
[2025-05-03] MEDS: POTASSIUM CHLORIDE 10% LIQ 20MEQ/15ML UDC PO ONE (09:30)
[2025-05-03] MEDS: PROCHLORPERAZINE 10MG/2ML VIAL IV PRN (11:03)
[2025-05-03 12:00] VITALS: BP 137/82; TEMP 98.1; O2SAT 98
[2025-05-03] MEDS: DEXTROSE 50% 50 ML SYRINGE IV PRN (12:20)
[2025-05-03] MEDS: D5W/LR 1,000 ML IV SCH (14:05)
[2025-05-03] MEDS: KCL 10MEQ/100ML SWI (KRUN) 10 MEQ in IV 1 EA IV ONE (16:57)
[2025-05-03] MEDS: diphenhydrAMINE 50 MG/ML VIAL IV ONE (19:54)
[2025-05-03 20:00] VITALS: BP 135/81; TEMP 98.2; O2SAT 93
[2025-05-04 04:00] VITALS: BP 139/78; TEMP 98.6; O2SAT 98
[2025-05-04] MEDS ORDERED: KCL 10MEQ/100ML SWI (KRUN) 10 MEQ in IV 1 EA IV ONE (08:40)
[2025-05-04 09:21] LABS: PLATELET COUNT, AUTOMATED 65 10^3/uL (150-450)
[2025-05-04 09:42] LABS: ALT/SGPT 64.0 U/L (7.0-40); AST/SGOT 222.0 U/L (<34); CALCIUM LEVEL 6.9 MG/DL (8.3-10.6); CARBON DIOXIDE LEVEL 26.0 MMOL/L (20-31); CHLORIDE LEVEL 104.0 MMOL/L (98-107); CREATININE FOR GFR 1.15 MG/DL (0.70-1.30); GLOMERULAR FILTRATION RATE 68.5 (>42); MAGNESIUM LEVEL 0.9 MG/DL (1.8-2.4); POTASSIUM SERUM 4.0 MMOL/L (3.5-5.1); SODIUM LEVEL 139.0 MMOL/L (136-145)
[2025-05-04] MEDS: MAG SULF 1GM/100ML (MAG RUN) 1 GM in IV 1 EA IV SCH ×2 (11:19→20:03)
[2025-05-04] MEDS ORDERED: LIDOCAINE 2% 100 MG/5 ML SDV (FOR ANES.) As Ordered ONE (14:36)
[2025-05-04 20:35] VITALS: BP 136/78; TEMP 97.9; O2SAT 98
[2025-05-05 04:17] VITALS: BP 137/78; TEMP 97.9; O2SAT 97
[2025-05-05 06:40] LABS: PLATELET COUNT, AUTOMATED 71 10^3/uL (150-450)
[2025-05-05 06:54] LABS: ALT/SGPT 51.0 U/L (7.0-40); AST/SGOT 154.0 U/L (<34); CALCIUM LEVEL 7.5 MG/DL (8.3-10.6); CARBON DIOXIDE LEVEL 29.0 MMOL/L (20-31); CHLORIDE LEVEL 103.0 MMOL/L (98-107); CREATININE FOR GFR 1.1 MG/DL (0.70-1.30); GLOMERULAR FILTRATION RATE 72.2 (>42); MAGNESIUM LEVEL 1.7 MG/DL (1.8-2.4); POTASSIUM SERUM 3.3 MMOL/L (3.5-5.1); SODIUM LEVEL 140.0 MMOL/L (136-145)
[2025-05-05] MEDS: POTASSIUM CHLORIDE 10MEQ SR TABLET PO ONE ×2 (09:00→14:53)
[2025-05-05] MEDS: MAG SULF 1GM/100ML (MAG RUN) 1 GM in IV 1 EA IV ONE (09:21)
[2025-05-05 12:00] VITALS: BP 142/76; TEMP 97.7; O2SAT 98
[2025-05-05] MEDS: MEROPENEM 1 GM in IV 1 EA IV SCH (13:47)
[2025-05-05] MEDS: KCL 10MEQ/100ML SWI (KRUN) 10 MEQ in IV 1 EA IV ONE (14:43)
[2025-05-05 14:53] LABS: C REACTIVE PROTEIN QUANTITATIV 8.97 MG/DL (<1.0)
[2025-05-05 21:08] VITALS: BP 151/87; TEMP 97.9; O2SAT 95
[2025-05-05] MEDS: KETOROLAC 30 MG/ML 1 ML VIAL IV ONE (22:39)
[2025-05-06 03:53] VITALS: BP 150/87; TEMP 98.1; O2SAT 95
[2025-05-06] MEDS: LIDOCAINE 2% 5 ML JELLY UROJET TOP ONE (05:50)
[2025-05-06 06:25] LABS: PLATELET COUNT, AUTOMATED 131 10^3/uL (150-450)
[2025-05-06 06:52] LABS: ALT/SGPT 58.0 U/L (7.0-40); AST/SGOT 182.0 U/L (<34); CALCIUM LEVEL 7.7 MG/DL (8.3-10.6); CARBON DIOXIDE LEVEL 26.0 MMOL/L (20-31); CHLORIDE LEVEL 100.0 MMOL/L (98-107); CREATININE FOR GFR 1.1 MG/DL (0.70-1.30); GLOMERULAR FILTRATION RATE 72.2 (>42); MAGNESIUM LEVEL 1.6 MG/DL (1.8-2.4); POTASSIUM SERUM 3.5 MMOL/L (3.5-5.1); SODIUM LEVEL 137.0 MMOL/L (136-145)
[2025-05-06] MEDS: MAG SULF 1GM/100ML (MAG RUN) 1 GM in IV 1 EA IV SCH (09:54)
[2025-05-06 10:28] VITALS: BP 148/82; TEMP 98.2; O2SAT 98
[2025-05-06] MEDS ORDERED: MAG SULF 1GM/100ML (MAG RUN) 1 GM in IV 1 EA IV ONE (10:35)
[2025-05-06] MEDS: DARBEPOETIN 100 MCG/0.5 ML *NON-DIALYSIS* SYRINGE SC SCH (11:06)
[2025-05-06 12:00] VITALS: BP 148/82; TEMP 98.2; O2SAT 98
[2025-05-06 13:23] VITALS: BP 124/74; TEMP 98.1; O2SAT 97
[2025-05-06] MEDS: KCL 10MEQ/100ML SWI (KRUN) 10 MEQ in IV 1 EA IV ONE (13:30)
[2025-05-06] MEDS: POTASSIUM CHLORIDE INJ 20 MEQ in D5W/LR 1,000 ML IV SCH (13:35)
[2025-05-06 16:24] VITALS: BP 133/77; TEMP 97.9; O2SAT 94
[2025-05-06 20:00] VITALS: BP 144/83; TEMP 97.9; O2SAT 92
[2025-05-07 04:00] VITALS: BP 145/83; TEMP 97.7; O2SAT 95
[2025-05-07 06:51] LABS: PLATELET COUNT, AUTOMATED 97 10^3/uL (150-450)
[2025-05-07 07:25] LABS: ALT/SGPT 40.0 U/L (7.0-40); AST/SGOT 133.0 U/L (<34); CALCIUM LEVEL 7.5 MG/DL (8.3-10.6); CARBON DIOXIDE LEVEL 25.0 MMOL/L (20-31); CHLORIDE LEVEL 103.0 MMOL/L (98-107); CREATININE FOR GFR 1.1 MG/DL (0.70-1.30); GLOMERULAR FILTRATION RATE 72.2 (>42); MAGNESIUM LEVEL 1.5 MG/DL (1.8-2.4); POTASSIUM SERUM 4.1 MMOL/L (3.5-5.1); SODIUM LEVEL 137.0 MMOL/L (136-145)
[2025-05-07] MEDS: MAG SULF 1GM/100ML (MAG RUN) 1 GM in IV 1 EA IV SCH (09:50)
[2025-05-07 11:49] VITALS: BP 144/82; TEMP 98.4; O2SAT 95
[2025-05-07 11:50] LABS: IRON (FE) 12.0 UG/DL (65-175); PERCENT SATURATION 8.6 % (19.7-50.0)
[2025-05-07 20:00] VITALS: BP 144/80; TEMP 98.6; O2SAT 94
[2025-05-08 04:00] VITALS: BP 142/86; TEMP 97.7; O2SAT 96
[2025-05-08] MEDS: FERRIC CARBOXYMALTOSE INJ 750 MG, VIAL MATE ADAPTER 1 EACH in NS 100 ML IV ONE (09:10)
[2025-05-08 12:00] VITALS: BP 138/83; TEMP 97.9; O2SAT 96
[2025-05-08 12:25] LABS: PLATELET COUNT, AUTOMATED 94 10^3/uL (150-450)
[2025-05-08 12:41] LABS: ALT/SGPT 33.0 U/L (7.0-40); AST/SGOT 153.0 U/L (<34); CALCIUM LEVEL 7.5 MG/DL (8.3-10.6); CARBON DIOXIDE LEVEL 21.0 MMOL/L (20-31); CHLORIDE LEVEL 104.0 MMOL/L (98-107); CREATININE FOR GFR 1.26 MG/DL (0.70-1.30); GLOMERULAR FILTRATION RATE 61.4 (>42); MAGNESIUM LEVEL 1.7 MG/DL (1.8-2.4); POTASSIUM SERUM 4.4 MMOL/L (3.5-5.1); SODIUM LEVEL 134.0 MMOL/L (136-145)
[2025-05-08 19:34] VITALS: BP 134/85; TEMP 97.9; O2SAT 97
[2025-05-09 04:52] VITALS: BP 161/90; TEMP 97.9; O2SAT 93
[2025-05-09 06:49] LABS: PLATELET COUNT, AUTOMATED 109 10^3/uL (150-450)
[2025-05-09 07:21] LABS: ALT/SGPT 31.0 U/L (7.0-40); AST/SGOT 121.0 U/L (<34); CALCIUM LEVEL 7.7 MG/DL (8.3-10.6); CARBON DIOXIDE LEVEL 22.0 MMOL/L (20-31); CHLORIDE LEVEL 103.0 MMOL/L (98-107); CREATININE FOR GFR 1.33 MG/DL (0.70-1.30); GLOMERULAR FILTRATION RATE 57.5 (>42); MAGNESIUM LEVEL 1.5 MG/DL (1.8-2.4); POTASSIUM SERUM 4.5 MMOL/L (3.5-5.1); SODIUM LEVEL 134.0 MMOL/L (136-145)
[2025-05-09 12:00] VITALS: BP 134/81; TEMP 97.7; O2SAT 91
[2025-05-09] MEDS: PROCHLORPERAZINE 10MG/2ML VIAL IV SCH (13:35)
[2025-05-09 19:42] VITALS: BP 145/81; TEMP 97.9; O2SAT 96
[2025-05-10 03:57] VITALS: BP 148/77; TEMP 97.9; O2SAT 98
[2025-05-10 06:54] LABS: PLATELET COUNT, AUTOMATED 128 10^3/uL (150-450)
[2025-05-10 07:20] LABS: ALT/SGPT 26.0 U/L (7.0-40); AST/SGOT 114.0 U/L (<34); CALCIUM LEVEL 7.9 MG/DL (8.3-10.6); CARBON DIOXIDE LEVEL 20.0 MMOL/L (20-31); CHLORIDE LEVEL 105.0 MMOL/L (98-107); CREATININE FOR GFR 1.36 MG/DL (0.70-1.30); GLOMERULAR FILTRATION RATE 56.0 (>42); MAGNESIUM LEVEL 1.3 MG/DL (1.8-2.4); POTASSIUM SERUM 4.9 MMOL/L (3.5-5.1); SODIUM LEVEL 135.0 MMOL/L (136-145)
[2025-05-10] MEDS: MAG SULF 1GM/100ML (MAG RUN) 1 GM in IV 1 EA IV SCH (09:55)
[2025-05-10] MEDS: SCOPOLAMINE 1MG TRANSDERMAL PATCH TOP SCH (10:58)
[2025-05-10 12:39] VITALS: BP 139/79; TEMP 98.6; O2SAT 96
[2025-05-10 19:34] VITALS: BP 159/79; TEMP 100.6; O2SAT 100
[2025-05-10] MEDS: TAMSULOSIN 0.4 MG CAP PO SCH (20:16)
[2025-05-10] MEDS: FINASTERIDE 5 MG TAB PO SCH (20:17)
[2025-05-10 21:51] VITALS: TEMP 100.4
[2025-05-10 23:19] VITALS: TEMP 98.7
[2025-05-11 05:26] VITALS: BP 108/51; TEMP 98.4; O2SAT 100
[2025-05-11 06:41] LABS: PLATELET COUNT, AUTOMATED 116 10^3/uL (150-450)
[2025-05-11 07:15] LABS: ALT/SGPT 22.0 U/L (7.0-40); AST/SGOT 106.0 U/L (<34); CALCIUM LEVEL 7.7 MG/DL (8.3-10.6); CARBON DIOXIDE LEVEL 18.0 MMOL/L (20-31); CHLORIDE LEVEL 106.0 MMOL/L (98-107); CREATININE FOR GFR 1.38 MG/DL (0.70-1.30); GLOMERULAR FILTRATION RATE 55.0 (>42); MAGNESIUM LEVEL 1.6 MG/DL (1.8-2.4); POTASSIUM SERUM 5.0 MMOL/L (3.5-5.1); SODIUM LEVEL 133.0 MMOL/L (136-145)
[2025-05-11] MEDS: MAG SULF 1GM/100ML (MAG RUN) 1 GM in IV 1 EA IV SCH (08:03)
[2025-05-11] MEDS: D5W/0.9% SODIUM CHLORIDE 1,000 ML IV SCH (11:08)
[2025-05-11 12:03] VITALS: BP 143/77; TEMP 98.7; O2SAT 98
[2025-05-11 20:00] VITALS: BP 157/83; TEMP 98.7; O2SAT 98
[2025-05-12 04:00] VITALS: BP 161/84; TEMP 99.1; O2SAT 97
[2025-05-12 12:45] VITALS: BP 114/60; TEMP 100.8; O2SAT 98
[2025-05-12 13:54] VITALS: TEMP 100.2
[2025-05-12 14:57] VITALS: TEMP 99.7
[2025-05-12 17:13] VITALS: TEMP 98.7
[2025-05-12] MEDS: D5W/0.9% SODIUM CHLORIDE 1,000 ML IV SCH (23:36)
[2025-05-13] VITALS (8 sets, daily range): BP systolic 124–158; BP diastolic 71–90; TEMP 99.2–101.4; O2SAT 93–100
[2025-05-13] MEDS ORDERED: IBUPROFEN 800 MG TAB PO ONE (04:05)
[2025-05-13] MEDS ORDERED: PILL CUTTER 1 EACH XX ONE (04:24)
[2025-05-13] MEDS: IBUPROFEN 400 MG TAB PO ONE (04:31)
[2025-05-13 04:48] LABS: PLATELET COUNT, AUTOMATED 109 10^3/uL (150-450)
[2025-05-13 05:09] LABS: CALCIUM LEVEL 7.4 MG/DL (8.3-10.6); CARBON DIOXIDE LEVEL 17.0 MMOL/L (20-31); CHLORIDE LEVEL 110.0 MMOL/L (98-107); CREATININE FOR GFR 1.44 MG/DL (0.70-1.30); GLOMERULAR FILTRATION RATE 52.3 (>42); MAGNESIUM LEVEL 1.5 MG/DL (1.8-2.4); PHOSPHORUS LEVEL 1.9 MG/DL (2.4-5.1); POTASSIUM SERUM 4.2 MMOL/L (3.5-5.1); SODIUM LEVEL 136.0 MMOL/L (136-145)
[2025-05-13] MEDS: SODIUM BICARBONATE 100 MEQ in D5W 1,000 ML IV SCH (11:52)
[2025-05-13] MEDS ORDERED: ISOVUE-370 76% 100 ML VIAL As Ordered ONE (12:07)
[2025-05-13] MEDS: MEROPENEM 1 GM in IV 1 EA IV SCH (14:21)
[2025-05-13 16:05] LABS: KETONE, URINE AUTO RFX NEGATIVE (NEGATIVE); LEUKOCYTE ESTERASE UR AUTO RFX NEGATIVE (NEGATIVE); NITRITE, URINE AUTO RFX NEGATIVE (NEGATIVE); RBC, URINE AUTO RFX 1 /HPF (0-3); SQUAM EPITHELIAL CELL UR AURFX 0 /HPF (0-6); WBC, URINE AUTO RFX 1 /HPF (0-3)
[2025-05-14 03:01] VITALS: BP 154/86; TEMP 99.9; O2SAT 97
[2025-05-14 08:29] LABS: BASO # 0.0 10^3/uL (0.0-0.2); BASO % 0.3 % (0.0-1.0); EOS # 0.0 10^3/uL (0.0-0.5); EOS % 0.9 % (0.0-3.0); LYMPH # 0.5 10^3/uL (1.5-5.0); LYMPH % 15.5 % (24.0-44.0); MONO # 0.2 10^3/uL (0.0-0.8); MONO % 5.7 % (2.0-8.0); NEUTROPHILS # 2.7 10^3/uL (1.5-8.5); NEUTROPHILS % 76.5 % (36.0-66.0); PLATELET COUNT, AUTOMATED 113 10^3/uL (150-450)
[2025-05-14 08:32] LABS: CALCIUM LEVEL 7.6 MG/DL (8.3-10.6); CARBON DIOXIDE LEVEL 21.0 MMOL/L (20-31); CHLORIDE LEVEL 106.0 MMOL/L (98-107); CREATININE FOR GFR 1.4 MG/DL (0.70-1.30); GLOMERULAR FILTRATION RATE 54.1 (>42); MAGNESIUM LEVEL 1.4 MG/DL (1.8-2.4); POTASSIUM SERUM 3.8 MMOL/L (3.5-5.1); SODIUM LEVEL 137.0 MMOL/L (136-145)
[2025-05-14] MEDS: MORPHINE 4 MG/ML 1 ML VIAL IV PRN (10:07)
[2025-05-14] MEDS: MAG SULF 1GM/100ML (MAG RUN) 1 GM in IV 1 EA IV SCH (10:08)
[2025-05-14 12:00] VITALS: BP 132/78; TEMP 98.4; O2SAT 96
[2025-05-14 14:36] VITALS: TEMP 100.4
[2025-05-14 20:35] VITALS: BP 164/86; TEMP 98.9; O2SAT 94
[2025-05-15 04:21] VITALS: BP 141/71; TEMP 101.3; O2SAT 93
[2025-05-15 05:38] VITALS: TEMP 100.8
[2025-05-15 05:59] LABS: BASO # 0.0 10^3/uL (0.0-0.2); BASO % 0.3 % (0.0-1.0); EOS # 0.1 10^3/uL (0.0-0.5); EOS % 1.5 % (0.0-3.0); LYMPH # 0.6 10^3/uL (1.5-5.0); LYMPH % 16.4 % (24.0-44.0); MONO # 0.2 10^3/uL (0.0-0.8); MONO % 4.8 % (2.0-8.0); NEUTROPHILS # 2.6 10^3/uL (1.5-8.5); NEUTROPHILS % 76.1 % (36.0-66.0); PLATELET COUNT, AUTOMATED 137 10^3/uL (150-450)
[2025-05-15 06:21] LABS: CALCIUM LEVEL 7.2 MG/DL (8.3-10.6); CARBON DIOXIDE LEVEL 23.0 MMOL/L (20-31); CHLORIDE LEVEL 101.0 MMOL/L (98-107); CREATININE FOR GFR 1.34 MG/DL (0.70-1.30); GLOMERULAR FILTRATION RATE 57.0 (>42); MAGNESIUM LEVEL 1.7 MG/DL (1.8-2.4); POTASSIUM SERUM 3.9 MMOL/L (3.5-5.1); SODIUM LEVEL 134.0 MMOL/L (136-145)
[2025-05-15] MEDS: MAG SULF 1GM/100ML (MAG RUN) 1 GM in IV 1 EA IV ONE (08:54)
[2025-05-15 12:00] VITALS: BP 130/70; TEMP 100.6; O2SAT 96
[2025-05-15 16:24] VITALS: TEMP 98.6
[2025-05-15 20:00] VITALS: BP 134/85; TEMP 98.2; O2SAT 91
[2025-05-16] VITALS (8 sets, daily range): BP systolic 87–135; BP diastolic 55–66; TEMP 98.3–101.5; O2SAT 82–97
[2025-05-16 13:46] LABS: BASO # 0.0 10^3/uL (0.0-0.2); BASO % 0.4 % (0.0-1.0); EOS # 0.4 10^3/uL (0.0-0.5); EOS % 4.2 % (0.0-3.0); LYMPH # 1.3 10^3/uL (1.5-5.0); LYMPH % 15.3 % (24.0-44.0); MONO # 0.5 10^3/uL (0.0-0.8); MONO % 5.5 % (2.0-8.0); NEUTROPHILS # 6.3 10^3/uL (1.5-8.5); NEUTROPHILS % 73.4 % (36.0-66.0); PLATELET COUNT, AUTOMATED 118 10^3/uL (150-450)
[2025-05-16 14:16] LABS: CALCIUM LEVEL 7.6 MG/DL (8.3-10.6); CARBON DIOXIDE LEVEL 25.0 MMOL/L (20-31); CHLORIDE LEVEL 98.0 MMOL/L (98-107); CREATININE FOR GFR 1.56 MG/DL (0.70-1.30); GLOMERULAR FILTRATION RATE 47.5 (>42); MAGNESIUM LEVEL 1.8 MG/DL (1.8-2.4); POTASSIUM SERUM 3.9 MMOL/L (3.5-5.1); SODIUM LEVEL 135.0 MMOL/L (136-145)
[2025-05-16] MEDS ORDERED: DEXTROSE 50% (25 GM/50 ML) VIAL IV STA ×2 (14:56→14:59)
[2025-05-16] MEDS: DEXTROSE 50% 50 ML SYRINGE IV STA (15:06)
[2025-05-16] MEDS: ALBUTEROL SULFATE 2.5 MG/0.5 ML INH CONCENTRATE NEB SOLN NEB ONE (15:11)
[2025-05-16 15:29] LABS: ABG BASE EXCESS 1.0 (-2.0-2.0); ABG HCO3 25.3 MMOL/L (22.0-26.0); ABG O2 SATURATION 98.4 % (95.0-99.0); ABG PARTIAL PRESSURE CO2 38.7 mmHg (35.0-45.0); ABG PARTIAL PRESSURE O2 124.7 mmHg (75.0-100.0); ABG STANDARD HCO3 25.4 MMOL/L. (22.0-26.0); ABG TOTAL CO2 26.5 MMOL/L (23.0-31.0); ABG pH (ARTERIAL) 7.433 UNITS (7.350-7.450)
[2025-05-16] MEDS: HYDROCORTISONE 100 MG/2 ML VIAL IV ONE (15:51)
[2025-05-16] MEDS: FLUCONAZOLE 400 MG in IV 1 EA IV ONE (17:03)
[2025-05-16] MEDS ORDERED: ALBUTEROL SULFATE 2.5 MG/0.5 ML INH CONCENTRATE NEB SOLN NEB PRN (19:00)
[2025-05-16] MEDS: PANTOPRAZOLE 40MG VIAL IV SCH (21:00)
[2025-05-16] MEDS: HYDROCORTISONE 100 MG/2 ML VIAL IV SCH (22:47)
[2025-05-17] MEDS ORDERED: MORPHINE 10 MG/0.5 ML ORAL CONCENTRATE SOLUTION U/D As Ordered ONE (02:48)
[2025-05-17] MEDS: MORPHINE 10 MG/0.5 ML ORAL CONCENTRATE SOLUTION U/D PO PRN (03:00)
[2025-05-17 04:31] VITALS: O2SAT 100
[2025-05-17 04:49] VITALS: BP 111/68; TEMP 98.2; O2SAT 99
[2025-05-17 06:32] VITALS: O2SAT 97
[2025-05-17 06:48] LABS: CALCIUM LEVEL 7.0 MG/DL (8.3-10.6); CARBON DIOXIDE LEVEL 24.0 MMOL/L (20-31); CHLORIDE LEVEL 96.0 MMOL/L (98-107); CREATININE FOR GFR 1.83 MG/DL (0.70-1.30); GLOMERULAR FILTRATION RATE 39.2 (>42); MAGNESIUM LEVEL 1.8 MG/DL (1.8-2.4); POTASSIUM SERUM 3.8 MMOL/L (3.5-5.1); SODIUM LEVEL 132.0 MMOL/L (136-145)
[2025-05-17] MEDS ORDERED: TRIMETHOPRIM/SULFAMETHOXAZOLE 600 MG in D5W 500 ML IV SCH (08:00)
[2025-05-17] MEDS ORDERED: MORPHINE 10 MG/0.5 ML ORAL CONCENTRATE SOLUTION U/D SL PRN (09:05)
[2025-05-17] MEDS ORDERED: FLEET ENEMA PR PRN (09:05)
[2025-05-17] MEDS ORDERED: ACETAMINOPHEN 325 MG TAB PO PRN (09:05)
[2025-05-17] MEDS ORDERED: MORPHINE 2 MG/ML 1 ML VIAL IV PRN (09:05)
[2025-05-17] MEDS ORDERED: LORazepam 1 MG TAB PO PRN (09:05)
[2025-05-17] MEDS ORDERED: HYOSCYAMINE SULFATE 0.125 MG SUBL TABLET PO PRN (09:05)
[2025-05-17] MEDS ORDERED: ATROPINE SULFATE 1% OPHTH SOLN 2 ML BTL SL PRN ×2 (09:05→11:10)
[2025-05-17] MEDS ORDERED: ACETAMINOPHEN 650 MG SUPP PR PRN (09:05)
[2025-05-17] MEDS ORDERED: BISACODYL 10 MG SUPP PR PRN (09:05)
[2025-05-17] MEDS ORDERED: MORPHINE 4 MG/ML 1 ML VIAL IV PRN (09:20)
[2025-05-17] MEDS: ONDANSETRON 4MG ORAL DISINTEGRATING TAB PO PRN (09:57)
[2025-05-17] MEDS: ONDANSETRON 4MG/2ML VIAL IV PRN (10:57)
[2025-05-17] MEDS ORDERED: POLYVINYL ALCOHOL OPHTH SOLN 15ML (LIQUITEARS) OU PRN (11:10)
[2025-05-17] MEDS ORDERED: SALIVA SUBSTITUTE BTL MT PRN (11:10)
[2025-05-17] MEDS ORDERED: HYOSCYAMINE SULFATE 0.125 MG SUBL TABLET SL PRN (11:10)
[2025-05-17] MEDS: MORPHINE 4 MG/ML 1 ML VIAL IV PRN (11:42)
[2025-05-17] MEDS: HALOPERIDOL LACTATE 5 MG/ML VIAL IV SCH (12:15)
[2025-05-17] MEDS: ONDANSETRON 4MG/2ML VIAL IV SCH (12:15)
[2025-05-17] MEDS: ACETAMINOPHEN *IV* 1,000 MG in IV 1 EA IV SCH (12:16)
[2025-05-17 20:00] VITALS: O2SAT 96
[2025-05-18] MEDS ORDERED: MORPHINE 10 MG/0.5 ML ORAL CONCENTRATE SOLUTION U/D SL PRN (11:35)
[2025-05-18] MEDS ORDERED: LORazepam 1 MG TAB PO PRN (11:35)
[2025-05-18] MEDS: ONDANSETRON 4MG ORAL DISINTEGRATING TAB PO SCH (13:13)
[2025-05-18] MEDS: HALOPERIDOL 2 MG TAB PO SCH (13:13)
[2025-05-18] MEDS: LORazepam 1 MG TAB PO SCH (13:13)
[2025-05-18 16:07] LABS: CMV QUANT DNA PCR (PLASMA) Not Detected; log10 CMV QN DNA P1 Not Detected log IU/mL
[2025-05-19] MEDS ORDERED: LORazepam 1 MG TAB PO PRN (08:50)
[2025-05-19] MEDS ORDERED: HALOPERIDOL 2 MG TAB PO PRN (08:50)
[2025-05-19] MEDS ORDERED: ONDANSETRON 4MG ORAL DISINTEGRATING TAB PO PRN (08:50)
[2025-05-19] MEDS ORDERED: MORPHINE 4 MG/ML 1 ML VIAL IV SCH (15:00)
== END 2025-05-19 14:31 | disposition expired | DRG 871 ==
LOC: M ED 12:17 → INTOOBSV 15:58 → M ED INP 15:58 → M MSPAV 18:53 → OBSVTOIN 04-30 07:07
PROVIDERS: ADMIT Student in an Organized Health Care Education/Training Program; ATTEND Student in an Organized Health Care Education/Training Program
DX: A41.9 Sepsis, unspecified organism (principal); J18.9 Pneumonia, unspecified organism; J96.01 Acute respiratory failure with hypoxia; E43 Unspecified severe protein-calorie malnutrition; A08.39 Other viral enteritis; N17.9 Acute kidney failure, unspecified; Z94.0 Kidney transplant status; D84.9 Immunodeficiency, unspecified; E87.20 Acidosis, unspecified; J98.11 Atelectasis; N25.81 Secondary hyperparathyroidism of renal origin; K21.9 Gastro-esophageal reflux disease without esophagitis; M10.9 Gout, unspecified; R53.1 Weakness; I25.10 Atherosclerotic heart disease of native coronary artery without angina pectoris; E86.0 Dehydration; Z95.5 Presence of coronary angioplasty implant and graft; L89.152 Pressure ulcer of sacral region, stage 2; K74.60 Unspecified cirrhosis of liver; F03.90 Unspecified dementia, unspecified severity, without behavioral disturbance, psychotic disturbance, mood disturbance, and anxiety; D64.9 Anemia, unspecified; E78.5 Hyperlipidemia, unspecified; Z96.642 Presence of left artificial hip joint; R10.9 Unspecified abdominal pain; R07.9 Chest pain, unspecified; E88.09 Other disorders of plasma-protein metabolism, not elsewhere classified; D69.6 Thrombocytopenia, unspecified; E87.70 Fluid overload, unspecified; E16.2 Hypoglycemia, unspecified; M19.012 Primary osteoarthritis, left shoulder; R62.7 Adult failure to thrive; N18.32 Chronic kidney disease, stage 3b; Z51.5 Encounter for palliative care; Z85.828 Personal history of other malignant neoplasm of skin; Z96.612 Presence of left artificial shoulder joint; E83.42 Hypomagnesemia; Z95.2 Presence of prosthetic heart valve; Z88.8 Allergy status to other drugs, medicaments and biological substances; Z88.5 Allergy status to narcotic agent; Z79.899 Other long term (current) drug therapy; Z98.41 Cataract extraction status, right eye; Z98.42 Cataract extraction status, left eye